=== PATIENT | male | born 1950 | race Caucasian/White ===

== ENCOUNTER 2021-03-28 11:23 | Inpatient (IN) | payer OTHER, MEDICAID, SELFPAY ==
--- NOTE | ~2021-03-28 | XR_ITS ---
EXAMINATION: XR CHEST CLINICAL INFORMATION: Cough. COMPARISON: Chest 10/28/2018 TECHNIQUE: 2 views of the chest were obtained. FINDINGS: The lungs are hyperinflated but clear of acute process. A right azygos lobe is noted. The heart size and pulmonary vascularity is normal. No gross bony abnormality seen. XR/XR chest 2V IMPRESSION: Unremarkable chest exam.
--- NOTE | ~2021-03-28 | CT_ITS ---
EXAMINATION: CT HEAD WITHOUT CONTRAST CLINICAL INFORMATION: Confusion. COMPARISON: None TECHNIQUE: Contiguous axial imaging was performed from the skull base to vertex without intravenous administration of contrast. This CT examination was performed using dose optimization techniques as appropriate, variously including the following: *Automated exposure control *Adjustment of mA and/or kV according to patient size (this includes techniques or standardized protocols for targeted exams where dose is matched to indication/reason for exam; i.e. extremities or head) *Use of iterative reconstruction technique DLP: 758 mGy-cm FINDINGS: There is no evidence of acute intracranial hemorrhage or territorial infarction. No abnormal mass effect or midline shift is seen. Alan to white matter differentiation is well preserved. No extra-axial fluid collections are identified. There is a dense right para falcine dural calcification. The lateral ventricles are symmetrical in size and configuration without and enlargement. The alan to white matter difference is maintained normal. The osseous structures and soft tissues are normal. The mastoid air cells and visualized portions of the paranasal sinuses are well aerated. CT/CT head/brain wo con IMPRESSION: No acute intracranial process seen.
[2021-03-28 12:05] VITALS: BP 182/96; PULSE 84; RESP 18; TEMP 37.5; O2SAT 97; BMI 29.5
[2021-03-28 13:00] LABS: Glucose, Whole Blood 112 mg/dL (60-115)
--- NOTE | 2021-03-28 13:28 | ECG_ITS ---
Test Reason : MED CLEAR Blood Pressure : / mmHG Vent. Rate : 042 BPM Atrial Rate : 042 BPM P-R Int : 174 ms QRS Dur : 154 ms QT Int : 602 ms P-R-T Axes : 040 020 167 degrees QTc Int : 502 ms Marked sinus bradycardia Left bundle branch block Abnormal ECG When compared with ECG of 28-OCT-2018 18:58, Premature ventricular complexes are no longer Present Vent. rate has decreased BY 33 BPM T wave inversion more evident in Anterolateral leads Referred By: Aretha Loco Electronically Signed By:DANDY MAYA MD
[2021-03-28 14:02] LABS: MANUAL DIFF FLAG NO
[2021-03-28 14:03] LABS: Basophils Percent Auto 0.4 % (0-2); Eosinophils Percent Auto 0.6 % (0-4); Hematocrit 47.8 % (42-52); Hemoglobin 15.7 g/dl (14.0-18.0); Imm Gran Abs Auto 0.02 X10*3/uL (0.00-0.03); Imm Gran Pct Auto 0.3 % (0.0-0.4); Lymphocytes Absolute Auto 1.4 X10*3/uL (1.2-4.9); Mean Corpuscular HGB Conc 32.8 g/dl (31.0-36.0); Mean Corpuscular Hemoglobin 29.4 pg (27.0-33.0); Mean Corpuscular Volume 89.5 fL (80-98); Mean Platelet Volume 9.5 fL (9.4-12.4); Monocytes Absolute Auto 0.7 X10*3/uL (0.1-1.2); Monocytes Percent Auto 9.3 % (2-11); Neutrophils Absolute Auto 5.1 X10*3/uL (2.0-8.3); Neutrophils Percent Auto 70.4 % (45-73); Platelet Count 224 X10*3/uL (160-400); Red Blood Count 5.34 X10*6/uL (4.60-5.80); Red Cell Distribution Width 13.9 % (11.0-16.0); White Blood Count 7.2 X10*3/uL (4.8-10.8)
[2021-03-28 14:09] VITALS: BP 161/84; PULSE 82; RESP 16; TEMP 36.2; O2SAT 98
[2021-03-28 14:18] LABS: COVID-19 Test Negative (Negative)
--- NOTE | 2021-03-28 14:25 | ED.PSYCH ---
HPI - Psych General Chief Complaint: Psychiatric Symptoms Stated Complaint: abd pain Time Seen by Provider: 03/28/21 13:11 Source: patient and family Mode of arrival: ambulatory History of Present Illness HPI Narrative: 70-year-old male with history of bipolar disorder, anxiety, COPD, hypertension, hyperlipidemia, diabetes, chronic abdominal pain who presents the emergency department with complaints of acute on chronic right lower abdominal pain as well as reports of confusion/abnormal thoughts and behaviors per family. Patient himself admits to right lower belly pain that has been worse over the last week denies nausea vomiting or diarrhea. Does admit to chest pain being there since the surgery many years ago but states it has been worse over the last week. Denies fevers or chills denies chest pain or shortness of breath denies pain with urination or issues urinating. Patient himself denies SI or HI but does admit that he has gotten his neighbors the double. Patient's mother is at the bedside and is very concerned as he has been off of all medications for the last 1-2 months. She states his behavior and thoughts are very disorganized he has been increasingly adventist over the last months thinking that he is God and the neighbor is the devil. He thinks that other relatives who or still live and she is concerned about his overall well-being. She does not feel he is safe to be at home alone this time. Related Data Home Medications Medication Instructions Recorded Confirmed fluticasone propionate 50 1 spray INTRANASAL DAILY 08/13/20 02/06/21 mcg/actuation nasal spray,suspension lorazepam 1 mg tablet 1 mg PO BID PRN 08/13/20 02/06/21 trazodone 100 mg tablet 100 mg PO BEDTIME PRN 08/13/20 02/06/21 albuterol sulfate 2.5 mg CONTINUOUS NEBULIZATION .3 11/06/20 02/06/21 TIMES A DAY PRN ml olanzapine 10 mg tablet 10 mg PO BEDTIME 02/06/21 02/06/21 Previous Rx's Medication Instructions Recorded acetaminophen 325 mg tablet 325 mg PO QID PRN #120 tab 08/15/20 omeprazole 20 mg capsule,delayed 20 mg PO DAILY #30 cap 10/13/20 release amlodipine 2.5 mg tablet 2.5 mg PO DAILY 90 Days #90 tab 11/09/20 losartan 50 mg tablet 50 mg PO .1/2 TABLET DAILY 60 Days 11/09/20 #30 tab tamsulosin 0.4 mg capsule 0.4 mg PO DAILY #90 cap 11/11/20 albuterol sulfate 90 mcg/actuation 2 puff INHALATION .4 TIMES A DAY 01/08/21 aerosol inhaler PRN #8.5 g atorvastatin 40 mg tablet 40 mg PO DAILY #90 tab 01/22/21 finasteride 5 mg tablet 5 mg PO DAILY 30 Days #30 tab 02/04/21 escitalopram oxalate 10 mg tablet 10 mg PO DAILY 30 Days #30 tab 02/19/21 tramadol 50 mg tablet 50 mg PO TID PRN 15 Days #45 tab 03/04/21 dicyclomine 20 mg tablet 20 mg PO TID PRN #90 tab 03/25/21 levothyroxine 200 mcg tablet 200 mcg PO QAM #30 tab 03/25/21 Allergies Allergy/AdvReac Type Severity Reaction Status Date / Time lisinopril [LISINOPRIL] Allergy Intermediate RASH Verified 02/06/21 14:59 Review of Systems Review of Systems: Constitutional : No Weight loss, No Fever, No Chills, No Night Sweats, No Fatigue, No Malaise ENT/Mouth : No Hearing loss, No Ear Pain, No Nasal Congestion, No Sinus Pain, No Hoarseness, No sore throat, No Rhinorrhea, No Swallowing Difficulty Eyes: No Eye Pain, No Swelling, No Redness, No Foreign Body, No Discharge, No Vision Changes Cardiovascular : No Chest Pain, No SOB, No Dyspnea on Exertion, No Orthopnea, No Edema, No Palpitations Respiratory : No Cough, No Sputum, No Wheezing, No Smoke Exposure, No Dyspnea Gastrointestinal : No Nausea, No Vomiting, No Diarrhea, No Constipation, + abdominal Pain, No Hematochezia, No Melena Genitourinary : no irregular bleeding, No Dysuria, No Urinary Frequency, No Hematuria, No Urinary Incontinence, No Urgency, No Flank Pain, No Urinary Flow Changes, No Hesitancy Musculoskeletal : No joint pain, No Myalgias, No Joint Swelling Skin : No Skin Lesions, No rash Neuro : No Weakness, No Numbness, No Paresthesias, No Loss of Consciousness, No Dizziness, No Headache Psych : No SI/HI Heme/Lymph: No Bruising, No Bleeding,No Lymphadenopathy Endocrine : No Polyuria, No Polydipsia, No Temperature Intolerance [facility] Past Medical History Attestation statement: The following information was validated with the patient. Source: old records reviewed and nursing notes reviewed Medical History Abdominal pain, chronic, right lower quadrant Acquired hypothyroidism Allergic rhinitis Anxiety Benign essential hypertension Bipolar disorder CAD (coronary artery disease) Constipation COPD (chronic obstructive pulmonary disease) Diabetes mellitus GERD (gastroesophageal reflux disease) Insomnia Obesity (BMI 30-39.9) Osteoarthritis Pure hypercholesterolemia Vitamin D deficiency Surgical History History of arthroscopic knee surgery History of cardiac catheterization History of colectomy History of esophagogastroduodenoscopy (EGD) History of excision of pilonidal cyst History of eye surgery History of skin graft Hx of colonoscopy Family History Family History Father Stroke CVD (cerebrovascular disease) Mother Hypertension Social History Social History Alcohol intake: unknown Patient Tobacco Use Status: Never used Tobacco Use of substances other than those prescribed or required for medical reasons: No Advance Directives: Yes Advance Directives Information Provided: Yes Advance Directives on File: No Physical Exam Vital Signs: Vital Signs: Last Vital Signs Temp 97.2 F 03/28/21 14:09 Pulse 82 03/28/21 14:09 Resp 16 03/28/21 14:09 BP 161/84 H 03/28/21 14:09 Pulse Ox 98 03/28/21 14:09 Body Mass Index 29.5 vital signs have been reviewed as normal and appeared to be correct. Blood pressure normal. Heart rate normal. Respiration rate normal. Temperature normal. Oxygen saturation normal. Appearance: Alert. Oriented X3. No acute distress. Head: Normal external exam. Normocephalic. Atraumatic. No Avalos signs noted. No raccoon eyes noted Eyes: PERRLA. EOMI. Conjunctiva and sclera normal. Eyelids normal. ENT: EAC normal. TM's Normal. Moist mucous membranes. No trismus noted. No drooling noted. No muffled voice noted. Neck: Normal inspection. Neck supple. FROM. No meningeal signs. No neck mass noted. CVS: Normal heart rate and rhythm. Heart sound normal. No murmurs noted. Pulses normal throughout. Respiratory: No respiratory distress. Painless inspiration. Breath sounds normal. No wheezes/rales/rhonchi noted. Chest nontender. No accessory muscle usage noted or decreased air movement noted. Abdomen: Soft, mild RLQ tenderness on exam, does improve with distraction. Bowel sounds normal in all 4 quadrants. No distention noted. No organomegaly noted. No visible injury noted. Back: No CVA tenderness. Full range of motion noted. Skin: Skin warm and dry. Normal skin color. Normal skin turgor. No rashes/lesions/lacerations noted. Extremities: No lower extremity edema. Extremities exhibit normal range of motion. Extremities nontender. Neuro: Oriented X 3. No motor deficit. No sensory deficit. Course Reevaluation(s) Reevaluation #1: Patient's blood work, head CT, chest x-ray without acute findings. Patient remains hemodynamically stable. At this time pending urinalysis but will medically clear for crisis evaluation. Will sign out care at change shift pending their evaluation and ultimate disposition. Patient is stable. MDM - Psych MDM Narrative Medical decision making narrative: Patient's vital signs are stable and he is afebrile patient presenting to the ED with reports of acute on chronic right lower abdominal pain and family reports is increasingly abnormal thoughts behaviors and fact that patient is off his psych medication for 2 months. Patient seems simply that he has gotten his neighbors the devil. He denies SI or HI. Mom who is present for examination is very concerned about his overall well-being is not feel that his thoughts or behaviors are safe at home where he lives alone. At this time will perform basic blood work head CT and urinalysis given patient's age to rule out potential sources infection that could cause confusion as well as worsening abdominal labs due to acute on chronic abdominal pain. Do not feel abdominal imaging is warranted at this time is patient is awake alert hemodynamically stable and easily distractible with palpation of abdomen. Once medically cleared will referred to crisis for formal assessment is patient will likely need inpatient stay to get back on his medications. Will continue to monitor and reassess pending the above. Lab Data Result diagrams: 03/28/21 13:53 06/10/21 13:52 Labs: Lab Results 03/28/21 03/28/21 03/28/21 Range/Units 12:56 13:47 13:52 WBC (4.8-10.8) X10*3/uL RBC (4.60-5.80) X10*6/uL Hgb (14.0-18.0) g/dl Hct (42-52) % MCV (80-98) fL MCH (27.0-33.0) pg MCHC (31.0-36.0) g/dl RDW (11.0-16.0) % Plt Count (160-400) X10*3/uL MPV (9.4-12.4) fL Immature Gran % (Auto) (0.0-0.4) % Neut % (Auto) (45-73) % Lymph % (Auto) (20-40) % [place] % (Auto) (2-11) % Eos % (Auto) (0-4) % Baso % (Auto) (0-2) % Lymph # (Auto) (1.2-4.9) X10*3/uL [place] # (Auto) (0.1-1.2) X10*3/uL Eos # (Auto) (0.0-0.4) X10*3/uL Baso # (Auto) (0.0-0.2) X10*3/uL Abs Immat Gran (auto) (0.00-0.03) X10*3/uL Absolute Neuts (auto) (2.0-8.3) X10*3/uL Absolute Nucleated RBC (0.0-0.012) X10*3/uL Nucleated RBC % (auto) (0.0-0.2) /100WBC Sodium 141 (135-145) mmol/L Potassium 3.7 (3.3-5.1) mmol/L Chloride 106 (96-108) mmol/L Carbon Dioxide 25 (22-29) mmol/L Anion Gap 14 (12-20) BUN 21 H (9-16) mg/dL Creatinine 1.30 (0.5-1.4) mg/dL Estim Creat Clear Calc 58.0 Estimated GFR 54 POC Glucose 112 (60-115) mg/dL Random Glucose 163 H (60-115) mg/dL Calcium 9.3 (8.4-10.2) mg/dL Total Bilirubin 0.7 (0.0-1.0) mg/dL Direct Bilirubin (0.0-0.5) mg/dL AST 30 (5-37) U/L ALT 32 (0-40) U/L Alkaline Phosphatase 86 (39-117) U/L Total Protein 7.1 (6.5-8.0) g/dL Albumin 4.0 (3.5-5.0) g/dL Lipase 51 (8-78) U/L Ethyl Alcohol mg/dL COVID-19 (DEEPA) Negative (Negative) COVID-19 Clin Com See Note 03/28/21 03/28/21 03/28/21 Range/Units 13:52 13:53 13:53 WBC 7.2 (4.8-10.8) X10*3/uL RBC 5.34 (4.60-5.80) X10*6/uL Hgb 15.7 (14.0-18.0) g/dl Hct 47.8 (42-52) % MCV 89.5 (80-98) fL MCH 29.4 (27.0-33.0) pg MCHC 32.8 (31.0-36.0) g/dl RDW 13.9 (11.0-16.0) % Plt Count 224 (160-400) X10*3/uL MPV 9.5 (9.4-12.4) fL Immature Gran % (Auto) 0.3 (0.0-0.4) % Neut % (Auto) 70.4 (45-73) % Lymph % (Auto) 19.0 L (20-40) % [place] % (Auto) 9.3 (2-11) % Eos % (Auto) 0.6 (0-4) % Baso % (Auto) 0.4 (0-2) % Lymph # (Auto) 1.4 (1.2-4.9) X10*3/uL [place] # (Auto) 0.7 (0.1-1.2) X10*3/uL Eos # (Auto) 0.0 (0.0-0.4) X10*3/uL Baso # (Auto) 0.0 (0.0-0.2) X10*3/uL Abs Immat Gran (auto) 0.02 (0.00-0.03) X10*3/uL Absolute Neuts (auto) 5.1 (2.0-8.3) X10*3/uL Absolute Nucleated RBC 0.000 (0.0-0.012) X10*3/uL Nucleated RBC % (auto) 0.0 (0.0-0.2) /100WBC Sodium (135-145) mmol/L Potassium (3.3-5.1) mmol/L Chloride (96-108) mmol/L Carbon Dioxide (22-29) mmol/L Anion Gap (12-20) BUN (9-16) mg/dL Creatinine (0.5-1.4) mg/dL Estim Creat Clear Calc Estimated GFR POC Glucose (60-115) mg/dL Random Glucose (60-115) mg/dL Calcium (8.4-10.2) mg/dL Total Bilirubin 0.7 (0.0-1.0) mg/dL Direct Bilirubin 0.3 (0.0-0.5) mg/dL AST 32 (5-37) U/L ALT 35 (0-40) U/L Alkaline Phosphatase 78 (39-117) U/L Total Protein 7.2 (6.5-8.0) g/dL Albumin 4.0 (3.5-5.0) g/dL Lipase (8-78) U/L Ethyl Alcohol < 10 mg/dL COVID-19 (DEEPA) (Negative) COVID-19 Clin Com Discharge Plan Discharge Clinical Impression: Bipolar disorder, Acute psychosis Patient Disposition: Still a Patient Prescriptions: No Action acetaminophen 325 mg tablet 325 mg PO QID PRN (Reason: pain) Qty: 120 RF: 4 omeprazole 20 mg capsule,delayed release(DR/EC) 20 mg PO DAILY Qty: 30 RF: 3 losartan 50 mg tablet 50 mg PO .1/2 TABLET DAILY 60 Days Qty: 30 RF: 3 amlodipine 2.5 mg tablet 2.5 mg PO DAILY 90 Days Qty: 90 RF: 1 tamsulosin 0.4 mg capsule 0.4 mg PO DAILY Qty: 90 RF: 0 albuterol sulfate [ProAir HFA] 90 mcg/actuation HFA aerosol inhaler 2 puff inhalation .4 TIMES A DAY PRN (Reason: bronchospasm) Qty: 8.5 RF: 0 atorvastatin 40 mg tablet 40 mg PO DAILY Qty: 90 RF: 1 finasteride 5 mg tablet 5 mg PO DAILY 30 Days Qty: 30 RF: 2 escitalopram oxalate 10 mg tablet 10 mg PO DAILY 30 Days Qty: 30 RF: 2 tramadol 50 mg tablet 50 mg PO TID PRN (Reason: pain) 15 Days Qty: 45 RF: 0 levothyroxine 200 mcg tablet 200 mcg PO QAM Qty: 30 RF: 0 dicyclomine 20 mg tablet 20 mg PO TID PRN (Reason: for pain) Qty: 90 RF: 0 trazodone 100 mg tablet 100 mg PO BEDTIME PRNRF: 0 lorazepam 1 mg tablet 1 mg PO BID PRNRF: 0 fluticasone propionate 50 mcg/actuation spray,suspension 1 spray intranasal DAILY RF: 0 albuterol sulfate 2.5 mg /3 mL (0.083 %) solution for nebulization 2.5 mg continuous nebulization .3 TIMES A DAY PRNRF: 0 olanzapine 10 mg tablet 10 mg PO BEDTIME RF: 0
[2021-03-28 14:26] LABS: Ethanol < 10 mg/dL
[2021-03-28 14:29] LABS: Alanine Aminotransferase 35 U/L (0-40); Alkaline Phosphatase 78 U/L (39-117); Aspartate Amino Transferase 32 U/L (5-37); Bilirubin Direct 0.3 mg/dL (0.0-0.5); Bilirubin Total 0.7 mg/dL (0.0-1.0); Total Protein 7.2 g/dL (6.5-8.0)
[2021-03-28 14:33] LABS: Alanine Aminotransferase 32 U/L (0-40); Alkaline Phosphatase 86 U/L (39-117); Anion Gap 14 (12-20); Aspartate Amino Transferase 30 U/L (5-37); Bilirubin Total 0.7 mg/dL (0.0-1.0); Blood Urea Nitrogen 21 mg/dL (9-16); Calcium 9.3 mg/dL (8.4-10.2); Carbon Dioxide 25 mmol/L (22-29); Chloride 106 mmol/L (96-108); Estimated Glomerular Filt Rate 54; Glucose Random 163 mg/dL (60-115); Lipase 51 U/L (8-78); Potassium 3.7 mmol/L (3.3-5.1); Sodium 141 mmol/L (135-145); Total Protein 7.1 g/dL (6.5-8.0)
--- NOTE | 2021-03-28 17:22 | PC.NURSE ---
ANNA faxed and called
[2021-03-28 21:51] LABS: Glucose Urine UA NEG (NEG); Leukocyte Esterase Urine NEG (NEG); Nitrite Urine NEG (NEG); Specific Gravity - Urine >= 1.030 (1.005-1.025); Urine Blood 2+ (NEG); Urine Ketones NEG (NEG); Urine Protein 2+ MG/DL (NEG-TRACE)
[2021-03-28 21:53] LABS: Appearance Urine CLEAR; Color Urine YELLOW
[2021-03-28 22:01] LABS: Mucus Urine 1+ /LPF; Squamous Epithelial Cell Urine TRACE /LPF; WBC Urine 0-2 /HPF (0-4)
[2021-03-28 22:27] LABS: Amphetamine Screen Urine Not Detected (Not Detect); Barbiturates, Urine Not Detected (Not Detect); Benzodiazepines Screen Urine Not Detected (Not Detect); Cannabinoid Screen Urine Not Detected (Not Detect); Cocaine Screen Urine Not Detected (Not Detect); Opiate Screen Urine Not Detected (Not Detect); Phencyclidine Screen Urine Not Detected (Not Detect)
[2021-03-28 23:11] VITALS: BP 140/69; PULSE 43; RESP 18; TEMP 36.6; O2SAT 98
[2021-03-29 00:20] VITALS: BP 141/68; PULSE 43; RESP 18; TEMP 36.6; O2SAT 98
--- NOTE | 2021-03-29 01:04 | PC.NURSE ---
Spoke with ANNA regarding admission to [facility] [place] [id number]
[2021-03-29 01:20] VITALS: BP 145/94; PULSE 52; RESP 16; TEMP 36.5; O2SAT 99
--- NOTE | 2021-03-29 02:22 | PC.ADMIT ---
PT admitted to [facility] for first time from ER, referred by Care Team. 70 year old male, diagnosed with bipolar, off meds, legal status CV, no previous hospitalizations. Nurse to nurse report obtained prior to arrival on unit. Collateral info obtained prior to acceptance. PT A+O x2, not oriented to date and month PT came in with complaints of chronic abdominal pain. PT states I am a God. PT presenting with disorganized thoughts and trouble concentrating. PT has sore inside lower bottom lip. No drug or alcohol use noted. Safety tool completed. PT medication not reconciled by this RN due to time of night. PT oriented to room and unit.
[2021-03-29 06:00] VITALS: BP 152/72; PULSE 46; RESP 18; TEMP 36.6; O2SAT 99
[2021-03-29 08:36] VITALS: BP 154/79; PULSE 50; RESP 20; TEMP 36.9; O2SAT 99
[2021-03-29 09:27] VITALS: BP 154/79; PULSE 50
[2021-03-29] MEDS: amLODIPine Besylate 2.5 MG TABLET PO (09:27)
[2021-03-29] MEDS: Milk of Magnesia 30 ML ORAL.SUSP PO (09:27)
[2021-03-29] MEDS: OLANZapine ODT 10 MG TAB.RAPDIS 5 MG TRANSLINGU (12:50)
[2021-03-29] MEDS: LORazepam 1 MG TABLET 2 MG PO ×2 (13:09→14:33)
[2021-03-29] MEDS: OLANZapine ODT 10 MG TAB.RAPDIS TRANSLINGU ×2 (13:09→21:02)
--- NOTE | 2021-03-29 13:49 | P.HPPS_ITS ---
HPI Chief Complaint: Susy and psychosis Sources of Information: patient interviewed, chart reviewed and crisis/core team assessment reviewed Additional Sources of Information: MOther HPI Subjective Notes: Conditional Voluntary Narrative: Mr. Lugo is a 70 year-old male with hx of BIpolar versus Schizoaffective Disorder who was brought to [facility] ED by his mother due to pt presenting as increasingly more agitated, religiously preoccupied stating that he is God and has killed the devil, not able to care for himself, not paying bills because he thinks he is God not taking medications for medical or psychiatric condition as he does not think he has anything to treat. In the ED, his utox is negative. On the unit, pt initially somewhat pleasant but guarded and irritable. He reports he is God, he killed the devil, he is moving to a mansion and is getting (to a GF that does not exist). He reports he does not need any medical or psychiatric treatment. He denied SI/HI. He reports eating and sleeping well but unclear if these reports are accurate. He tells this fha underwriter he is leaving today. He believes that several relatives who have long time ago have resurrected thanks to his de souza. He is telling staff about their fate. He reports hearing voices (sometimes of devil). He later demanded to leave and became combative, requiring PO medications for agitation including Ativan 2 mg and Olanzapine 5mg. He briefly calmed down, and again became agitated, demanding to leave. Telling people that he was hearing voices from Father God. He presents as very irritable, threatening to hurt st aff if not discharged. He did agree to take Depakote 500mg po, fluphenazine 5mg po and ativan 2mg po. Past Psychiatric History: Inpatient: total of 2 admissions. This is his 3rd one. OP: [facility] Mt with Dr. Marvin Suicide attempts: none Past trials: olanzapine, citalopram Medical Evaluation Reviewed: Yes PERTINENT LABS: CBC with dif wnl; CMP- increase BUN, Cr 1.30; GFR 54, E Creatine Clearance 58; liver panel wnl; [facility] Medical History Abdominal pain, chronic, right lower quadrant Acquired hypothyroidism Allergic rhinitis Anxiety Benign essential hypertension Bipolar disorder CAD (coronary artery disease) Constipation COPD (chronic obstructive pulmonary disease) Diabetes mellitus GERD (gastroesophageal reflux disease) Insomnia Obesity (BMI 30-39.9) Osteoarthritis Pure hypercholesterolemia Vitamin D deficiency Surgical History History of arthroscopic knee surgery History of cardiac catheterization History of colectomy History of esophagogastroduodenoscopy (EGD) History of excision of pilonidal cyst History of eye surgery History of skin graft Hx of colonoscopy Family History: sister- depression Social History: twice. 3 adult children with whom he has limited contact. 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 lives alone. mother still alive and main support. Substance History: none Trauma History: none Diagnostics Vital Signs (24Hr): Vital Signs - 24 hr 03/28/21 14:09 03/28/21 23:11 03/29/21 00:20 Temperature 97.2 F 97.9 F 97.8 F Pulse Rate 82 43 L 43 L Respiratory Rate 16 18 18 Blood Pressure 161/84 H 140/69 H 141/68 H Pulse Oximetry 98 98 98 03/29/21 01:20 03/29/21 06:00 03/29/21 08:36 Temperature 97.7 F 97.8 F 98.4 F Pulse Rate 52 46 L 50 Respiratory Rate 16 18 20 Blood Pressure 145/94 H 152/72 H 154/79 H Pulse Oximetry 99 99 99 03/29/21 09:27 Temperature Pulse Rate 50 Respiratory Rate Blood Pressure 154/79 H Pulse Oximetry Body Mass Index 29.5 Labs Results: 03/28/21 13:53 03/28/21 13:52 Labs: Laboratory Results - last 48 hr 03/28/21 03/28/21 03/28/21 12:56 13:47 13:52 WBC RBC Hgb Hct MCV MCH MCHC RDW Plt Count MPV Immature Gran % (Auto) Neut % (Auto) Lymph % (Auto) [place] % (Auto) Eos % (Auto) Baso % (Auto) Lymph # (Auto) [place] # (Auto) Eos # (Auto) Baso # (Auto) Abs Immat Gran (auto) Absolute Neuts (auto) Absolute Nucleated RBC Nucleated RBC % (auto) Sodium 141 Potassium 3.7 Chloride 106 Carbon Dioxide 25 Anion Gap 14 BUN 21 H Creatinine 1.30 Estim Creat Clear Calc 58.0 Estimated GFR 54 POC Glucose 112 Random Glucose 163 H Calcium 9.3 Total Bilirubin 0.7 Direct Bilirubin AST 30 ALT 32 Alkaline Phosphatase 86 Total Protein 7.1 Albumin 4.0 Lipase 51 Urine Color Urine Appearance Urine pH Ur Specific [place] Urine Protein Urine Glucose (UA) Urine Ketones Urine Blood Urine Nitrite Ur Leukocyte Esterase Urine RBC Urine WBC Ur Squamous Epith Cells Urine Bacteria Urine Mucus Urine Opiates Screen Ur Barbiturates Screen Ur Phencyclidine Scrn Ur Amphetamines Screen U Benzodiazepines Scrn Urine Cocaine Screen U Marijuana (THC) Screen Ethyl Alcohol COVID-19 (DEEPA) Negative COVID-19 Clin Com See Note 03/28/21 03/28/21 03/28/21 13:52 13:53 13:53 WBC 7.2 RBC 5.34 Hgb 15.7 Hct 47.8 MCV 89.5 MCH 29.4 MCHC 32.8 RDW 13.9 Plt Count 224 MPV 9.5 Immature Gran % (Auto) 0.3 Neut % (Auto) 70.4 Lymph % (Auto) 19.0 L [place] % (Auto) 9.3 Eos % (Auto) 0.6 Baso % (Auto) 0.4 Lymph # (Auto) 1.4 [place] # (Auto) 0.7 Eos # (Auto) 0.0 Baso # (Auto) 0.0 Abs Immat Gran (auto) 0.02 Absolute Neuts (auto) 5.1 Absolute Nucleated RBC 0.000 Nucleated RBC % (auto) 0.0 Sodium Potassium Chloride Carbon Dioxide Anion Gap BUN Creatinine Estim Creat Clear Calc Estimated GFR POC Glucose Random Glucose Calcium Total Bilirubin 0.7 Direct Bilirubin 0.3 AST 32 ALT 35 Alkaline Phosphatase 78 Total Protein 7.2 Albumin 4.0 Lipase Urine Color Urine Appearance Urine pH Ur Specific [place] Urine Protein Urine Glucose (UA) Urine Ketones Urine Blood Urine Nitrite Ur Leukocyte Esterase Urine RBC Urine WBC Ur Squamous Epith Cells Urine Bacteria Urine Mucus Urine Opiates Screen Ur Barbiturates Screen Ur Phencyclidine Scrn Ur Amphetamines Screen U Benzodiazepines Scrn Urine Cocaine Screen U Marijuana (THC) Screen Ethyl Alcohol < 10 COVID-19 (DEEPA) COVID-19 Clin Com 03/28/21 03/28/21 21:40 21:40 WBC RBC Hgb Hct MCV MCH MCHC RDW Plt Count MPV Immature Gran % (Auto) Neut % (Auto) Lymph % (Auto) [place] % (Auto) Eos % (Auto) Baso % (Auto) Lymph # (Auto) [place] # (Auto) Eos # (Auto) Baso # (Auto) Abs Immat Gran (auto) Absolute Neuts (auto) Absolute Nucleated RBC Nucleated RBC % (auto) Sodium Potassium Chloride Carbon Dioxide Anion Gap BUN Creatinine Estim Creat Clear Calc Estimated GFR POC Glucose Random Glucose Calcium Total Bilirubin Direct Bilirubin AST ALT Alkaline Phosphatase Total Protein Albumin Lipase Urine Color YELLOW Urine Appearance CLEAR Urine pH 6.0 Ur Specific [place] >= 1.030 H Urine Protein 2+ H Urine Glucose (UA) NEG Urine Ketones NEG Urine Blood 2+ H Urine Nitrite NEG Ur Leukocyte Esterase NEG Urine RBC 10-14 H Urine WBC 0-2 Ur Squamous Epith Cells TRACE Urine Bacteria NONE Urine Mucus 1+ Urine Opiates Screen Not Detected Ur Barbiturates Screen Not Detected Ur Phencyclidine Scrn Not Detected Ur Amphetamines Screen Not Detected U Benzodiazepines Scrn Not Detected Urine Cocaine Screen Not Detected U Marijuana (THC) Screen Not Detected Ethyl Alcohol COVID-19 (DEEPA) COVID-19 Clin Com Imaging Radiology Impressions: ITS Impressions Chest X-Ray 03/28/21 13:28 IMPRESSION: Unremarkable chest exam. Head CT 03/28/21 13:33 IMPRESSION: No acute intracranial process seen. Meds/Allergies Meds Home Medications Acetaminophen (Acetaminophen 325 Mg Tablet) 650 mg PO Q6H PRN PRN Reason: Headache/Pain Mild Scale (1-3) Last Admin: 03/30/21 20:43 Dose: 650 mg Documented by: Al Hydroxide/Mg Hydroxide (Magnesium Hydrox/Alum Hydrox 30 Ml Oral.Susp) 30 ml PO Q6H PRN PRN Reason: Heartburn/Nausea Albuterol Sulfate (Albuterol Sulfate 90 Mcg 8 Gm Inhaler) 4 puff INHALE RQ4H PRN PRN Reason: short of breath, wheezing Amlodipine Besylate (Amlodipine Besylate 2.5 Mg Tablet) 2.5 mg PO DAILY YAYA; Protocol Last Admin: 03/31/21 08:35 Dose: 2.5 mg Documented by: Clonazepam (Clonazepam 1 Mg Tablet) 1 mg PO BID YAYA Last Admin: 03/31/21 19:46 Dose: 1 mg Documented by: Dicyclomine HCl (Dicyclomine Hcl 10 Mg Capsule) 10 mg PO TID PRN PRN Reason: GI pain Last Admin: 03/31/21 08:35 Dose: 10 mg Documented by: Divalproex Sodium (Divalproex Sodium 500 Mg Tablet.) 500 mg PO BID [facility] Last Admin: 03/31/21 19:46 Dose: 500 mg Documented by: Fluphenazine HCl (Fluphenazine Hcl 2.5 Mg Tablet) 2.5 mg PO Q6H PRN PRN Reason: agitation Last Admin: 03/31/21 08:35 Dose: 2.5 mg Documented by: Levothyroxine Sodium (Levothyroxine Sodium 25 Mcg Tablet) 25 mcg PO DAILY@0600 [facility] Last Admin: 04/01/21 05:01 Dose: 25 mcg Documented by: Lorazepam (Lorazepam 1 Mg Tablet) 1 mg PO Q4H PRN PRN Reason: agitation anxiety Last Admin: 03/31/21 19:46 Dose: 1 mg Documented by: Magnesium Hydroxide (Milk Of Magnesia 30 Ml Oral.Susp) 30 ml PO DAILY PRN PRN Reason: Constipation Last Admin: 03/29/21 09:27 Dose: 30 ml Documented by: Olanzapine (Olanzapine Odt 10 Mg Tab.Rapdis) 10 mg TRANSLINGU BID [facility] Last Admin: 03/31/21 19:46 Dose: 10 mg Documented by: Trazodone HCl (Trazodone Hcl 100 Mg Tablet) 100 mg PO BEDTIME [facility] Last Admin: 03/31/21 19:47 Dose: 100 mg Documented by: Allergies Allergies Allergy/AdvReac Type Severity Reaction Status Date / Time lisinopril [LISINOPRIL] Allergy Intermediate RASH Verified 02/06/21 14:59 Mental Status Exam Mental Status Exam Narrative: Appearance: casually groomed, fair hygiene, in NAD Behavior: irritable, agitated Psychomotor: significant agitation Speech: clear, pressured rate/rhythm/load volume, spontaneous, hyperverbal TP: tangential, derailment at times TC: roman catholic and grandiose delusions Mood: fine Affect:labile SI:denies HI:denies AH/VH:AH of God Delusions:roman catholic and grandiose delusions, thinks he is God, millionaire Insight/judgment:impaired x 2 Memory/cog: alert, impaired secondary to psychiatric symptoms. Assessment & Plan Assessment & Plan (1) Bipolar affective, manic, severe w/ psych: Status: Acute Code(s): F31.2 - Bipolar disorder, current episode manic severe with psychotic features Assessment and Plan: 1. Re start Olanzapine 10mg po BID 2. Start Depakote 500mg po BID 3. Start Clonazepam 1mg po BID. 4. Start Trazodone 100mg po qhs. Reason for continued inpatient stay Substantial Risk for: harm to self, harm to others and inability to function
[2021-03-29] MEDS: Divalproex Sodium 500 MG TABLET.DR PO ×2 (14:25→21:03)
[2021-03-29] MEDS: OLANZapine 10 MG VIAL IM (18:18)
[2021-03-29] MEDS: LORazepam 2 MG/ML VIAL IM (18:33)
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
[2021-03-29] MEDS: Divalproex Sodium 500 MG TABLET.DR 1000 MG PO (20:23)
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
[2021-03-29] MEDS: clonazePAM 1 MG TABLET PO (21:01)
[2021-03-29] MEDS: traZODone HCL 100 MG TABLET PO (21:01)
--- NOTE | 2021-03-29 22:46 | PM.EVENT ---
Event Note Date of Service: 03/29/21 Event Note: Agitation: Patient had an episode of agitation again at 8:50p.m.; patient was placed on physical restraints by the staff for safety. I went in and evaluated the patient; signed the restraint form. Frequent reorientation.
--- NOTE | 2021-03-30 07:35 | PC.NURSE ---
Pt's mother notified of episodes this evening and patient's behaviors. She is also requesting that pt be seen by an actual doctor, a psychiatrist, not a UI UX DEVELOPER . Mother stated, I insist that it be put in writing that I want that .
[2021-03-30 09:21] LABS: Estimated Average Glucose 105 mg/dL; Hemoglobin A1c % 5.3 %
[2021-03-30] MEDS: clonazePAM 1 MG TABLET PO ×2 (09:28→20:44)
[2021-03-30] MEDS: amLODIPine Besylate 2.5 MG TABLET PO (09:28)
[2021-03-30] MEDS: Divalproex Sodium 500 MG TABLET.DR PO ×2 (09:29→20:43)
[2021-03-30] MEDS: OLANZapine ODT 10 MG TAB.RAPDIS TRANSLINGU ×2 (09:29→20:44)
[2021-03-30 09:30] VITALS: BP 158/80; PULSE 80; RESP 16; TEMP 36.8; O2SAT 9
[2021-03-30 09:36] LABS: Cholesterol 189 mg/dL; HDL Cholesterol 50 mg/dL; LDL Cholesterol Calculated 118 mg/dl; Triglycerides 106 mg/dL
[2021-03-30 09:57] LABS: Thyroid Stimulating Hormone 12.87 uIU/mL (0.32-4.0)
--- NOTE | 2021-03-30 15:40 | P.PNPSI_ITS ---
Subjective Subjective Date of Service: 03/30/21 Reason For Visit: Susy and psychosis Interim History: Noted yesterday aggressive, agitated, attempting to elope, intrusive and impulsive with peers in space. On one-to-one observation in context of same. Did receive IM medications with Some benefit and did appear to sleep well last night. Today he told keno writer that he hears God and the devil talking to him. Was asking keno writer if keno writer's was called Maeve. Also stated this was [facility]. Reported he wanted to be discharged. Discussed medications just being restarted and therefore time to observe same and that he would be here definitely through the weekend. Appear to show some understanding of this, without agitation. Medication Compliance: Yes Side effects from medications: No Review of Systems Constitutional: Reports as per HPI Eyes: Reports as per HPI Reports as per HPI Cardiovascular: Reports as per HPI Respiratory: Reports as per HPI Gastrointestinal: Reports as per HPI Genitourinary: Reports as per HPI Musculoskeletal: Reports as per HPI Skin/Breast: Reports as per HPI Reports as per HPI and Reports tremor(s) Comments: Resting right hand tremor Psychiatric: Reports abnormal sleep pattern, Reports anxiety, Reports irritability and Reports paranoia Mental Status Exam Mental Status Exam Narrative: seen in room. Was also seen walking in the hallways. Did not appear aggressive or agitated. Self-care was poor. Was internally preoccupied. Reported he had killed the devil and he had also brought family member back to life. Reports hearing the God and the devil's voice. Denies feeling depressed. Aware he was in the hospital and stated it was April rather than March. No evidence of SI or HI. Insight and judgment is limited. Diagnostics Vital Signs (24Hr): Vital Signs - 24 hr 03/30/21 09:30 Temperature 98.3 F Pulse Rate 80 Respiratory Rate 16 Blood Pressure 158/80 H Pulse Oximetry 9 L Body Mass Index 29.5 Labs Results: 03/28/21 13:53 03/28/21 13:52 Labs: Laboratory Results - last 48 hr 03/28/21 03/28/21 03/30/21 21:40 21:40 09:00 Estimat Average Glucose 105 Hemoglobin A1c % 5.3 Triglycerides Cholesterol LDL Cholesterol, Calc HDL Cholesterol TSH Urine Color YELLOW Urine Appearance CLEAR Urine pH 6.0 Ur Specific [place] >= 1.030 H Urine Protein 2+ H Urine Glucose (UA) NEG Urine Ketones NEG Urine Blood 2+ H Urine Nitrite NEG Ur Leukocyte Esterase NEG Urine RBC 10-14 H Urine WBC 0-2 Ur Squamous Epith Cells TRACE Urine Bacteria NONE Urine Mucus 1+ Urine Opiates Screen Not Detected Ur Barbiturates Screen Not Detected Ur Phencyclidine Scrn Not Detected Ur Amphetamines Screen Not Detected U Benzodiazepines Scrn Not Detected Urine Cocaine Screen Not Detected U Marijuana (THC) Screen Not Detected 03/30/21 09:00 Estimat Average Glucose Hemoglobin A1c % Triglycerides 106 Cholesterol 189 LDL Cholesterol, Calc 118 HDL Cholesterol 50 TSH 12.87 H Urine Color Urine Appearance Urine pH Ur Specific [place] Urine Protein Urine Glucose (UA) Urine Ketones Urine Blood Urine Nitrite Ur Leukocyte Esterase Urine RBC Urine WBC Ur Squamous Epith Cells Urine Bacteria Urine Mucus Urine Opiates Screen Ur Barbiturates Screen Ur Phencyclidine Scrn Ur Amphetamines Screen U Benzodiazepines Scrn Urine Cocaine Screen U Marijuana (THC) Screen Imaging Radiology Impressions: ITS Impressions Chest X-Ray 03/28/21 13:28 IMPRESSION: Unremarkable chest exam. Head CT 03/28/21 13:33 IMPRESSION: No acute intracranial process seen. Medications Medications Current Medications Generic Name Dose Route Start Last Admin Trade Name Freq PRN Reason Stop Dose Admin Acetaminophen 650 mg 03/29/21 01:50 Acetaminophen 325 Mg Tablet PO Q6H PRN Headache/Pain Mild Scale (1-3) Al Hydroxide/Mg Hydroxide 30 ml 03/29/21 01:50 Magnesium Hydrox/Alum Hydrox 30 Ml Oral.Susp PO Q6H PRN Heartburn/Nausea Albuterol Sulfate 4 puff 03/29/21 01:50 Albuterol Sulfate 90 Mcg 8 Gm Inhaler INHALE RQ4H PRN short of breath, wheezing Amlodipine Besylate 2.5 mg 03/29/21 09:00 03/30/21 09:28 Amlodipine Besylate 2.5 Mg Tablet PO 2.5 mg DAILY YAYA Administration Protocol Clonazepam 1 mg 03/29/21 21:00 03/30/21 09:28 Clonazepam 1 Mg Tablet PO 1 mg BID YAYA Administration Dicyclomine HCl 10 mg 03/29/21 01:50 Dicyclomine Hcl 10 Mg Capsule PO TID PRN GI pain Divalproex Sodium 500 mg 03/29/21 15:00 03/30/21 09:29 Divalproex Sodium 500 Mg Tablet. PO 500 mg BID YAYA Administration Fluphenazine HCl 2.5 mg 03/29/21 15:55 Fluphenazine Hcl 2.5 Mg Tablet PO Q6H PRN agitation Lorazepam 1 mg 03/29/21 14:30 Lorazepam 1 Mg Tablet PO Q4H PRN agitation anxiety Magnesium Hydroxide 30 ml 03/29/21 01:50 03/29/21 09:27 Milk Of Magnesia 30 Ml Oral.Susp PO 30 ml DAILY PRN Administration Constipation Olanzapine 10 mg 03/29/21 21:00 03/30/21 09:29 Olanzapine Odt 10 Mg Tab.Rapdis TRANSLINGU 10 mg BID YAYA Administration Trazodone HCl 100 mg 03/29/21 21:00 03/29/21 21:01 Trazodone Hcl 100 Mg Tablet PO 100 mg BEDTIME YAYA Administration Allergies Allergies Allergy/AdvReac Type Severity Reaction Status Date / Time lisinopril [LISINOPRIL] Allergy Intermediate RASH Verified 02/06/21 14:59 Assessment & Plan Assessment & Plan (1) Bipolar affective, manic, severe w/ psych: Status: Acute Code(s): F31.2 - Bipolar disorder, current episode manic severe with psychotic features Assessment and Plan: No changes- just restarted zyprexa and depakote and klonopin. Give time for effect. Appears less agitated and impulsive today Maintain 1:1 given recent elopement attempts, aggression and intrusiveness/wandering into others rooms. Greater than 50% of the session was spent on counseling and/or coordination of care Reason for contiued inpatient stay Substantial Risk for: harm to others, inability to function and med/psych decompensation
[2021-03-30 17:39] VITALS: BP 154/84; PULSE 53; RESP 12; TEMP 36.9; O2SAT 98
[2021-03-30 20:41] VITALS: BP 146/67; PULSE 45; RESP 16; TEMP 36.3; O2SAT 99
[2021-03-30] MEDS: Acetaminophen 325 MG TABLET 650 MG PO (20:43)
[2021-03-30] MEDS: traZODone HCL 100 MG TABLET PO (20:43)
[2021-03-30] MEDS: Dicyclomine HCl 10 MG CAPSULE PO (20:44)
--- NOTE | 2021-03-30 22:13 | PC.NURSE ---
Addendum entered by Irena Chatterjee RN 03/30/21 22:54: Lawanda Stanislav Park was notified via [facility] of Gabriela's call and concerns. PriyankUyenKia Park reported he would contact her by phone on 03/31/21. Her phone number was provided. Original Note: Patient is seen resting in hospital bed. He is sleeping. He is awoken for assessment and medications. He is alert to location the hospital when asked which hospital, he replies [facility]. Patient states Those things I said, I'm bi-polar. When presented with medications, he replies Get away from me, you're a Spic! You're a pushy Spic. You're harassing me. Get away from me. I'll take them after you're gone. Patient is redirected to take medications at this time as they cannot be left with him. Patient takes the medication cup and brings it to his lips then throws all medications across the room. Patient states, I am a god. Medications are re-prepared and presented to him. He takes the medications after being told Tylenol was added for pain as he was grimacing with position changes in bed. He takes the medications and chews them up. When offered a cup of water he hits this writers hand tossing the water down this leader writer's front of body. He states You're a dirty spic! You will be fired! The patient later requests applesauce, he is provided with applesauce and consumes it. He is later overheard telling the 1:1 observer I'm sorry I threw something. My maker said no more incidents from me. I promise. About 30 min. after taking medications, Patient was observed in the hallway trying to open a door off the unit. He states Open the door I want to go outside. He was told this was not an option at this time. He was re-oriented to location and reason for hospitalization. Patient was observed to be weak on feet and encouraged to go back to room to rest. Patient states, You're a bossy bitch. Apologize for bossing me now! He steps closer to this leader writer with arm and finger outstretched pointing in this leader writer's face yelling. Patient was redirected for aggressive behavior and asked to return to room, which he did. Patient's mother, Gabriela called unit several times throughout the evening hours during medication pass. This leader writer spoke with Gabriela at 10:06pm to provide update. Gabriela states, I am a 89 year old woman and I am very tired and would like to go to bed so tell me what is happening. Gabriela was provided an update about the patient; he is currently sleeping, what he at this evening, the times he was awake this evening, medications he took, behaviors exhibited during medication pass. Gabriela stated she was upset he had been sleeping all day, feels the medications we are giving him are not working, is upset he has not been seen by a real M.D. She states, This is ridiculous he comes in on a and has to wait till Thursday to be seen by a real M.D.?? So what is the plan for tomorrow, when will I see him? It was reiterated the patient should not have visitors this weekend. Gabriela was upset about this. She was reminded this was a recommendation of Nurse Groover Operator, Roxanne Kendrick due to behaviors exhibited by patient during her visit on 03/29/21. Gabriela became escalated yelling at this leader writer, stating You're making up stuff. Don't you go putting down stuff that's not true. I will call my speech instructor and graciela you. This leader writer let Gabriela know she would be ending the call due to her yelling.
[2021-03-31] MEDS: amLODIPine Besylate 2.5 MG TABLET PO (08:35)
[2021-03-31] MEDS: Divalproex Sodium 500 MG TABLET.DR PO ×2 (08:35→19:46)
[2021-03-31] MEDS: OLANZapine ODT 10 MG TAB.RAPDIS TRANSLINGU ×2 (08:35→19:46)
[2021-03-31] MEDS: fluPHENAZine HCl 2.5 MG TABLET PO (08:35)
[2021-03-31] MEDS: Dicyclomine HCl 10 MG CAPSULE PO (08:35)
[2021-03-31] MEDS: clonazePAM 1 MG TABLET PO ×2 (08:35→19:46)
[2021-03-31] MEDS: LORazepam 1 MG TABLET PO ×2 (09:57→19:46)
--- NOTE | 2021-03-31 14:00 | P.PNPSI_ITS ---
Subjective Subjective Date of Service: 03/31/21 Reason For Visit: Susy and psychosis Interim History: Some irritability and agitation last night. No physical aggression. Primarily around wanting to go home. Does well with staff support. Excepting medications. He reports feeling okay and wants to go home today. He was asking credit underwriter if credit underwriter some was called Rj. Wire Stitcher informed the Tanner he did not have a son. Tanner then stated that he had lots of money and have a big house. Asked about God and he does not make any obvious delusional catholic statements. Adamantly denied hearing voices stated the last time that happened was yesterday. Wanted credit underwriter to speak with Mom and give credit underwriter mom's contact number, which was consistent with number and record. He was eager for d ischarge. Is aware that he needs to meet with his primary team, discussed treatment planning, progress and also disposition planning. Was clear with Tanner that meeting with his team tomorrow did not mean he will be discharged tomorrow. Spoke with Tanner's mother, who is 93 years old and has regular contact with him. She reports that he has been off his medications at a cycle he is back on them. She thinks that he may need some assistance at home and reports that his short- term memory has gotten worse in recent times and is therefore difficulty around medications etc.. She usually accompanies him to doctor's appointments. She is looking forward to speaking with his primary team around progress and treatment planning. Medication Compliance: Yes Side effects from medications: No Review of Systems Review of Systems Unremarkable Mental Status Exam Mental Status Exam Narrative: Seen in room. Pleasant and cooperative. Is alert and oriented. There was some short-term memory difficulty evident during interview. Affect was largely restricted today. No evidence of SI or HI. Does have delusional beliefs usual thinking for example asking credit underwriter if his son was called Rj, talking about having lots of money and big houses, which is not the case as per Mom. Insight and judgment limited, but is accepting treatment but also very eager for discharge. Diagnostics Vital Signs (24Hr): Vital Signs - 24 hr 03/30/21 17:39 03/30/21 20:41 Temperature 98.4 F 97.4 F Pulse Rate 53 45 L Respiratory Rate 12 16 Blood Pressure 154/84 H 146/67 H Pulse Oximetry 98 99 Body Mass Index 29.5 Labs Results: 03/28/21 13:53 03/28/21 13:52 Labs: Laboratory Results - last 48 hr 03/30/21 03/30/21 09:00 09:00 Estimat Average Glucose 105 Hemoglobin A1c % 5.3 Triglycerides 106 Cholesterol 189 LDL Cholesterol, Calc 118 HDL Cholesterol 50 TSH 12.87 H Imaging Radiology Impressions: ITS Impressions Chest X-Ray 03/28/21 13:28 IMPRESSION: Unremarkable chest exam. Head CT 03/28/21 13:33 IMPRESSION: No acute intracranial process seen. Medications Medications Current Medications Generic Name Dose Route Start Last Admin Trade Name Freq PRN Reason Stop Dose Admin Acetaminophen 650 mg 03/29/21 01:50 03/30/21 20:43 Acetaminophen 325 Mg Tablet PO 650 mg Q6H PRN Administration Headache/Pain Mild Scale (1-3) Al Hydroxide/Mg Hydroxide 30 ml 03/29/21 01:50 Magnesium Hydrox/Alum Hydrox 30 Ml Oral.Susp PO Q6H PRN Heartburn/Nausea Albuterol Sulfate 4 puff 03/29/21 01:50 Albuterol Sulfate 90 Mcg 8 Gm Inhaler INHALE RQ4H PRN short of breath, wheezing Amlodipine Besylate 2.5 mg 03/29/21 09:00 03/31/21 08:35 Amlodipine Besylate 2.5 Mg Tablet PO 2.5 mg DAILY AYYA Administration Protocol Clonazepam 1 mg 03/29/21 21:00 03/31/21 08:35 Clonazepam 1 Mg Tablet PO 1 mg BID YAYA Administration Dicyclomine HCl 10 mg 03/29/21 01:50 03/31/21 08:35 Dicyclomine Hcl 10 Mg Capsule PO 10 mg TID PRN Administration GI pain Divalproex Sodium 500 mg 03/29/21 15:00 03/31/21 08:35 Divalproex Sodium 500 Mg Tablet.Dr PO 500 mg BID YAYA Administration Fluphenazine HCl 2.5 mg 03/29/21 15:55 03/31/21 08:35 Fluphenazine Hcl 2.5 Mg Tablet PO 2.5 mg Q6H PRN Administration agitation Levothyroxine Sodium 25 mcg 03/31/21 11:40 03/31/21 12:21 Levothyroxine Sodium 25 Mcg Tablet PO Not Given DAILY@0600 YAYA Lorazepam 1 mg 03/29/21 14:30 03/31/21 09:57 Lorazepam 1 Mg Tablet PO 1 mg Q4H PRN Administration agitation anxiety Magnesium Hydroxide 30 ml 03/29/21 01:50 03/29/21 09:27 Milk Of Magnesia 30 Ml Oral.Susp PO 30 ml DAILY PRN Administration Constipation Olanzapine 10 mg 03/29/21 21:00 03/31/21 08:35 Olanzapine Odt 10 Mg Tab.Rapdis TRANSLINGU 10 mg BID YAYA Administration Trazodone HCl 100 mg 03/29/21 21:00 03/30/21 20:43 Trazodone Hcl 100 Mg Tablet PO 100 mg BEDTIME YAYA Administration Allergies Allergies Allergy/AdvReac Type Severity Reaction Status Date / Time lisinopril [LISINOPRIL] Allergy Intermediate RASH Verified 02/06/21 14:59 Assessment & Plan Assessment & Plan (1) Bipolar affective, manic, severe w/ psych: Status: Acute Code(s): F31.2 - Bipolar disorder, current episode manic severe with psychotic features Assessment and Plan: 03/31/21: No changes- just restarted zyprexa and depakote and klonopin. Give time for effect. Continues to show improvement regarding impulsivity and agitation. Psychosis does appear slightly less intense compared to yesterday.Maintain 1:1 given recent elopement attempts, aggression and intrusiveness/wandering into others rooms. This can be reviewed on a daily basis.. Greater than 50% of the session was spent on counseling and/or coordination of care Reason for contiued inpatient stay Substantial Risk for: inability to function and rapid decompensation
[2021-03-31] MEDS: traZODone HCL 100 MG TABLET PO (19:47)
[2021-04-01] MEDS: Levothyroxine Sodium 25 MCG TABLET PO (05:01)
[2021-04-01 08:23] VITALS: BP 162/69; PULSE 60; RESP 18; TEMP 36.4; O2SAT 98
[2021-04-01 08:33] VITALS: BP 162/69; PULSE 59
[2021-04-01] MEDS: amLODIPine Besylate 2.5 MG TABLET PO (08:33)
[2021-04-01] MEDS: clonazePAM 1 MG TABLET PO ×2 (08:33→21:00)
[2021-04-01] MEDS: Divalproex Sodium 500 MG TABLET.DR PO ×2 (08:33→21:00)
[2021-04-01] MEDS: OLANZapine ODT 10 MG TAB.RAPDIS TRANSLINGU (08:34)
[2021-04-01] MEDS: Dicyclomine HCl 10 MG CAPSULE PO (08:34)
[2021-04-01] MEDS: Milk of Magnesia 30 ML ORAL.SUSP PO (08:34)
--- NOTE | 2021-04-01 10:29 | HO.PSYCHPN ---
Subjective Subjective Date of Service: 04/01/21 Reason For Visit: Susy and psychosis Interim History: Per nursing, pt last night was quiter than previous nights. He does ask to be discharged but is much less agitated. He is taking medications as prescribed. Pt lying in bed. He reports he hears voices of God and Devil. He continues to report that he is a God. He states God told him he will be discharged today. He reports he is eating and sleeping well. He reports he likes the food here. He asks if staff member who he had reported God told him are going to , in fact . Pt told they did not . He states good, I don't believe in murder. He asks this engineering technical writer how long he has been here in unit. Informed he has been here for about 4 days. He is oriented to year, place, month, not date, confused about why he is here. He denies SI/HI. He presents as less agitated. Review of Systems Review of Systems Unremarkable Constitutional: Reports as per HPI Eyes: Reports as per HPI Reports as per HPI Cardiovascular: Reports as per HPI, Denies chest pain, Denies lightheadedness and Denies dyspnea Respiratory: Reports as per HPI and Denies dyspnea Gastrointestinal: Reports as per HPI, Denies constipation and Denies diarrhea Genitourinary: Reports as per HPI Musculoskeletal: Reports as per HPI Skin/Breast: Reports as per HPI Reports as per HPI and Reports tremor(s) Psychiatric: Reports abnormal sleep pattern, Reports anxiety, Reports irritability and Reports paranoia Mental Status Exam Mental Status Exam Narrative: Appearance: casually groomed, fair hygiene, in NAD Behavior: irritable, agitated Psychomotor: significant agitation Speech: clear, pressured rate/rhythm/load volume, spontaneous, hyperverbal TP: tangential, derailment at times TC: advent and grandiose delusions Mood: fine Affect:labile SI:denies HI:denies AH/VH:AH of God Delusions:advent and grandiose delusions, thinks he is God, millionaire Insight/judgment:impaired x 2 Memory/cog: alert, impaired secondary to psychiatric symptoms. Diagnostics Vital Signs (24Hr): Vital Signs - 24 hr 04/01/21 08:23 04/01/21 08:33 Temperature 97.6 F Pulse Rate 60 59 Respiratory Rate 18 Blood Pressure 162/69 H 162/69 H Pulse Oximetry 98 Body Mass Index 29.5 Labs Results: 03/28/21 13:53 03/28/21 13:52 Imaging Radiology Impressions: ITS Impressions Chest X-Ray 03/28/21 13:28 IMPRESSION: Unremarkable chest exam. Head CT 03/28/21 13:33 IMPRESSION: No acute intracranial process seen. Medications Medications Current Medications Generic Name Dose Route Start Last Admin Trade Name Freq PRN Reason Stop Dose Admin Acetaminophen 650 mg 03/29/21 01:50 03/30/21 20:43 Acetaminophen 325 Mg Tablet PO 650 mg Q6H PRN Administration Headache/Pain Mild Scale (1-3) Al Hydroxide/Mg Hydroxide 30 ml 03/29/21 01:50 Magnesium Hydrox/Alum Hydrox 30 Ml Oral.Susp PO Q6H PRN Heartburn/Nausea Albuterol Sulfate 4 puff 03/29/21 01:50 Albuterol Sulfate 90 Mcg 8 Gm Inhaler INHALE RQ4H PRN short of breath, wheezing Amlodipine Besylate 5 mg 04/02/21 09:00 Amlodipine Besylate 5 Mg Tablet PO DAILY [facility] Protocol Clonazepam 1 mg 03/29/21 21:00 04/01/21 08:33 Clonazepam 1 Mg Tablet PO 1 mg BID YAYA Administration Dicyclomine HCl 10 mg 03/29/21 01:50 04/01/21 08:34 Dicyclomine Hcl 10 Mg Capsule PO 10 mg TID PRN Administration GI pain Divalproex Sodium 500 mg 03/29/21 15:00 04/01/21 08:33 Divalproex Sodium 500 Mg Tablet.Dr PO 500 mg BID YAYA Administration Fluphenazine HCl 2.5 mg 03/29/21 15:55 03/31/21 08:35 Fluphenazine Hcl 2.5 Mg Tablet PO 2.5 mg Q6H PRN Administration agitation Levothyroxine Sodium 25 mcg 03/31/21 11:40 04/01/21 05:01 Levothyroxine Sodium 25 Mcg Tablet PO 25 mcg DAILY@0600 YAYA Administration Lorazepam 1 mg 03/29/21 14:30 03/31/21 19:46 Lorazepam 1 Mg Tablet PO 1 mg Q4H PRN Administration agitation anxiety Magnesium Hydroxide 30 ml 03/29/21 01:50 04/01/21 08:34 Milk Of Magnesia 30 Ml Oral.Susp PO 30 ml DAILY PRN Administration Constipation Olanzapine 10 mg 03/29/21 21:00 04/01/21 08:34 Olanzapine Odt 10 Mg Tab.Rapdis TRANSLINGU 10 mg BID YAYA Administration Trazodone HCl 100 mg 03/29/21 21:00 03/31/21 19:47 Trazodone Hcl 100 Mg Tablet PO 100 mg BEDTIME YAYA Administration Allergies Allergies Allergy/AdvReac Type Severity Reaction Status Date / Time lisinopril [LISINOPRIL] Allergy Intermediate RASH Verified 02/06/21 14:59 Assessment & Plan Assessment & Plan (1) Bipolar affective, manic, severe w/ psych: Status: Acute Code(s): F31.2 - Bipolar disorder, current episode manic severe with psychotic features Assessment and Plan: 1. Continue Olanzapine 10mg po BID 2. Continue Depakote 500mg po BID- will check levels + ammonia level 3. continue Clonazepam 1mg po BID. 4. Continue Trazodone 100mg po qhs. Greater than 50% of the session was spent on counseling and/or coordination of care Reason for contiued inpatient stay Substantial Risk for: harm to self, harm to others and inability to function
[2021-04-01] MEDS: OLANZapine 10 MG TABLET PO (13:40)
[2021-04-01] MEDS: Tamsulosin HCL 0.4 MG CAPSULE PO (14:13)
[2021-04-01 15:39] LABS: Alanine Aminotransferase 22 U/L (0-40); Albumin Level 3.5 g/dL (3.5-5.0); Anion Gap 12 (12-20); Aspartate Amino Transferase 26 U/L (5-37); Bilirubin Total 0.4 mg/dL (0.0-1.0); Blood Urea Nitrogen 25 mg/dL (9-16); Carbon Dioxide 30 mmol/L (22-29); Chloride 107 mmol/L (96-108); Creatinine Clr Calc Pharmacy 70.4; Estimated Glomerular Filt Rate > 60; Glucose Random 77 mg/dL (60-115); Potassium 4.1 mmol/L (3.3-5.1); Sodium 145 mmol/L (135-145); Total Protein 6.1 g/dL (6.5-8.0)
[2021-04-01 15:43] LABS: Alkaline Phosphatase 65 U/L (39-117)
[2021-04-01] MEDS: Finasteride 5 MG TABLET PO (16:37)
[2021-04-01 18:00] VITALS: BP 164/64; PULSE 54; RESP 18; TEMP 36.4; O2SAT 96
[2021-04-01] MEDS: Simethicone 80 MG TAB.CHEW PO (18:40)
--- NOTE | 2021-04-01 20:38 | PC.NURSE ---
At approximately 14:00 Patient reported difficultly urinating. Reported to Provider Malaika Corona. Bladder Scan ordered and obtained. Bladder Scan amount 579 ml. Straight Cath attempted but not successful due to Coiling. Patient attempted to void after Straight Cath and was successful. Post Void Bladder Scan 30 ml. Will continue to monitor and assess.
[2021-04-01] MEDS: risperiDONE 2 MG TABLET PO (21:00)
[2021-04-01] MEDS: traZODone HCL 100 MG TABLET PO (21:00)
[2021-04-01] MEDS: Atorvastatin Calcium 40 MG TABLET PO (21:00)
[2021-04-02 06:00] VITALS: BP 136/74; PULSE 63; RESP 18; TEMP 36.3; O2SAT 98
[2021-04-02] MEDS: Levothyroxine Sodium 200 MCG TABLET PO (06:57)
[2021-04-02 08:25] VITALS: BP 147/70; PULSE 61; RESP 16; TEMP 36.4; O2SAT 97
[2021-04-02] MEDS: Tamsulosin HCL 0.4 MG CAPSULE PO (08:27)
[2021-04-02] MEDS: Omeprazole 20 MG CAPSULE.DR PO (08:27)
[2021-04-02] MEDS: Finasteride 5 MG TABLET PO (08:27)
[2021-04-02] MEDS: Divalproex Sodium 500 MG TABLET.DR PO ×2 (08:27→20:10)
[2021-04-02] MEDS: OLANZapine ODT 10 MG TAB.RAPDIS TRANSLINGU (08:27)
[2021-04-02 08:28] VITALS: BP 147/70; PULSE 61
[2021-04-02] MEDS: clonazePAM 1 MG TABLET PO (08:28)
[2021-04-02] MEDS: amLODIPine Besylate 5 MG TABLET PO (08:28)
--- NOTE | 2021-04-02 10:52 | HO.PSYCHPN ---
Subjective Subjective Date of Service: 04/02/21 Reason For Visit: Susy and psychosis Interim History: Per nursing, pt slept through the night. He had reported last evening that he was leaving as God told him this was the plan. However, he did not become agitated or irritable when told that was not the plan. Today, he reports he feels tired. He reports he is hearing less voices of God and the devil. He is not insisting on having to leave the unit because he is a millionare or because he is getting . He does seem slightly sedated during the day, we discussed as he is more stable psychiatrically, medication like clonazepam can be decreased. He denies SI/HI. He reports BM today, urinating, PVR less than 300ml. No need to straight cath. No cogwheel noted on exam. No EPS. No resting tremors noted. Review of Systems Review of Systems Unremarkable Constitutional: Reports as per HPI Eyes: Reports as per HPI Reports as per HPI Cardiovascular: Reports as per HPI, Denies chest pain, Denies lightheadedness and Denies dyspnea Respiratory: Reports as per HPI and Denies dyspnea Gastrointestinal: Reports as per HPI, Denies constipation and Denies diarrhea Genitourinary: Reports as per HPI Musculoskeletal: Reports as per HPI Skin/Breast: Reports as per HPI Reports as per HPI and Reports tremor(s) Psychiatric: Reports abnormal sleep pattern, Reports anxiety, Reports irritability and Reports paranoia Mental Status Exam Mental Status Exam Narrative: Appearance: casually groomed, fair hygiene, in NAD Behavior: irritable, agitated Psychomotor: significant agitation Speech: clear, pressured rate/rhythm/load volume, spontaneous, hyperverbal TP: tangential, derailment at times TC: jew and grandiose delusions Mood: fine Affect:labile SI:denies HI:denies AH/VH:AH of God Delusions:jew and grandiose delusions, thinks he is God, millionaire Insight/judgment:impaired x 2 Memory/cog: alert, impaired secondary to psychiatric symptoms. Diagnostics Vital Signs (24Hr): Vital Signs - 24 hr 04/01/21 18:00 04/02/21 06:00 04/02/21 08:25 Temperature 97.6 F 97.4 F 97.5 F Pulse Rate 54 63 61 Respiratory Rate 18 18 16 Blood Pressure 164/64 H 136/74 147/70 H Pulse Oximetry 96 98 97 04/02/21 08:28 Temperature Pulse Rate 61 Respiratory Rate Blood Pressure 147/70 H Pulse Oximetry Body Mass Index 29.5 Labs Results: 03/28/21 13:53 04/01/21 14:48 Labs: Laboratory Results - last 48 hr 04/01/21 14:48 Sodium 145 Potassium 4.1 Chloride 107 Carbon Dioxide 30 H Anion Gap 12 BUN 25 H Creatinine 1.07 Estim Creat Clear Calc 70.4 Estimated GFR > 60 Random Glucose 77 D Calcium 9.0 Total Bilirubin 0.4 AST 26 ALT 22 Alkaline Phosphatase 65 Total Protein 6.1 L Albumin 3.5 Imaging Radiology Impressions: ITS Impressions Chest X-Ray 03/28/21 13:28 IMPRESSION: Unremarkable chest exam. Head CT 03/28/21 13:33 IMPRESSION: No acute intracranial process seen. Medications Medications Current Medications Generic Name Dose Route Start Last Admin Trade Name Freq PRN Reason Stop Dose Admin Acetaminophen 650 mg 03/29/21 01:50 03/30/21 20:43 Acetaminophen 325 Mg Tablet PO 650 mg Q6H PRN Administration Headache/Pain Mild Scale (1-3) Al Hydroxide/Mg Hydroxide 30 ml 03/29/21 01:50 Magnesium Hydrox/Alum Hydrox 30 Ml Oral.Susp PO Q6H PRN Heartburn/Nausea Albuterol Sulfate 4 puff 03/29/21 01:50 Albuterol Sulfate 90 Mcg 8 Gm Inhaler INHALE RQ4H PRN short of breath, wheezing Albuterol Sulfate 2.5 mg 04/02/21 10:49 Albuterol Sulfate (0.083%) 2.5 Mg/3 Ml Vial.Neb INHALE TID PRN wheezing/sob Amlodipine Besylate 5 mg 04/02/21 09:00 04/02/21 08:28 Amlodipine Besylate 5 Mg Tablet PO 5 mg DAILY YAYA Administration Protocol Atorvastatin Calcium 40 mg 04/01/21 21:00 04/01/21 21:00 Atorvastatin Calcium 40 Mg Tablet PO 40 mg BEDTIME YAYA Administration Dicyclomine HCl 10 mg 03/29/21 01:50 04/01/21 08:34 Dicyclomine Hcl 10 Mg Capsule PO 10 mg TID PRN Administration GI pain Divalproex Sodium 500 mg 03/29/21 15:00 04/02/21 08:27 Divalproex Sodium 500 Mg Tablet. PO 500 mg BID YAYA Administration Finasteride 5 mg 04/01/21 14:10 04/02/21 08:27 Finasteride 5 Mg Tablet PO 5 mg DAILY YAYA Administration Fluphenazine HCl 2.5 mg 03/29/21 15:55 03/31/21 08:35 Fluphenazine Hcl 2.5 Mg Tablet PO 2.5 mg Q6H PRN Administration agitation Levothyroxine Sodium 200 mcg 04/02/21 06:00 04/02/21 06:57 Levothyroxine Sodium 200 Mcg Tablet PO 200 mcg DAILY@0600 YAYA Administration Lorazepam 1 mg 03/29/21 14:30 03/31/21 19:46 Lorazepam 1 Mg Tablet PO 1 mg Q4H PRN Administration agitation anxiety Magnesium Hydroxide 30 ml 03/29/21 01:50 04/01/21 08:34 Milk Of Magnesia 30 Ml Oral.Susp PO 30 ml DAILY PRN Administration Constipation Olanzapine 10 mg 04/02/21 09:00 04/02/21 08:27 Olanzapine Odt 10 Mg Tab.Rapdis TRANSLINGU 10 mg DAILY YAYA Administration Omeprazole 20 mg 04/02/21 08:00 04/02/21 08:27 Omeprazole 20 Mg Capsule. PO 20 mg DAILY@0800 YAYA Administration Risperidone 2 mg 04/01/21 21:00 04/01/21 21:00 Risperidone 2 Mg Tablet PO 2 mg BEDTIME YAYA Administration Simethicone 80 mg 04/01/21 18:13 04/01/21 18:40 Simethicone 80 Mg Tab.Chew PO 80 mg QIDWMHS PRN Administration GI Upset Tamsulosin HCl 0.4 mg 04/01/21 14:10 04/02/21 08:27 Tamsulosin Hcl 0.4 Mg Capsule PO 0.4 mg DAILY YAYA Administration Trazodone HCl 100 mg 03/29/21 21:00 04/01/21 21:00 Trazodone Hcl 100 Mg Tablet PO 100 mg BEDTIME YAYA Administration Allergies Allergies Allergy/AdvReac Type Severity Reaction Status Date / Time lisinopril [LISINOPRIL] Allergy Intermediate RASH Verified 02/06/21 14:59 Assessment & Plan Assessment & Plan (1) Bipolar affective, manic, severe w/ psych: Status: Acute Code(s): F31.2 - Bipolar disorder, current episode manic severe with psychotic features Assessment and Plan: 1. discussed switching olanzapine to risperidone- considering MIKE. Continue risperidone 2mg po qhs. Olanzapine 10mg po daily. 2. d/c clonazepam as pt calmer, somewhat somnolent during the day. 3. continue trazodone for sleep. (2) COPD (chronic obstructive pulmonary disease): Qualifiers: COPD type: unspecified COPD Qualified Code(s): J44.9 - Chronic obstructive pulmonary disease, unspecified Status: Acute Code(s): J44.9 - Chronic obstructive pulmonary disease, unspecified Assessment and Plan: continue albuterol nebulizer PRN and inhaler (3) Benign essential hypertension: Status: Acute Code(s): I10 - Essential (primary) hypertension Assessment and Plan: - amlodipine increase to 5mg po daily due to persistent hypertension. (4) Diabetes mellitus: Qualifiers: Diabetes mellitus type: type 2 Diabetes mellitus predatory animal exterminator insulin use: without fpc use Diabetes mellitus complication status: without complication Qualified Code(s): E11.9 - Type 2 diabetes mellitus without complications Status: Acute Code(s): E11.9 - Type 2 diabetes mellitus without complications Assessment and Plan: A1C less than 6% (5) CAD (coronary artery disease): Qualifiers: Coronary Disease-Associated Artery/Lesion type: [place] artery [place] vs. transplanted heart: [place] heart Associated angina: without angina Qualified Code(s): I25.10 - Atherosclerotic heart disease of [place] coronary artery without angina pectoris Status: Acute Code(s): I25.10 - Atherosclerotic heart disease of [place] coronary artery without angina pectoris Assessment and Plan: continue atorvastatin (6) Constipation: Qualifiers: Constipation type: unspecified constipation type Qualified Code(s): K59.00 - Constipation, unspecified Status: Acute Code(s): K59.00 - Constipation, unspecified (7) GERD (gastroesophageal reflux disease): Qualifiers: Esophagitis presence: without esophagitis Qualified Code(s): K21.9 - Gastro-esophageal reflux disease without esophagitis Status: Acute Code(s): K21.9 - Gastro-esophageal reflux disease without esophagitis (8) Abdominal pain, chronic, right lower quadrant: Status: Acute Code(s): R10.31 - Right lower quadrant pain; G89.29 - Other chronic pain (9) Pure hypercholesterolemia: Status: Acute Code(s): E78.00 - Pure hypercholesterolemia, unspecified Greater than 50% of the session was spent on counseling and/or coordination of care Reason for contiued inpatient stay Substantial Risk for: harm to others and inability to function
[2021-04-02] MEDS: OLANZapine 10 MG TABLET PO (11:49)
[2021-04-02] MEDS: LORazepam 1 MG TABLET PO ×2 (16:10→20:10)
[2021-04-02] MEDS: Atorvastatin Calcium 40 MG TABLET PO (20:10)
[2021-04-02] MEDS: risperiDONE 2 MG TABLET PO (20:10)
[2021-04-02] MEDS: traZODone HCL 100 MG TABLET PO (20:10)
[2021-04-03] MEDS: Levothyroxine Sodium 200 MCG TABLET PO (05:03)
[2021-04-03] MEDS: LORazepam 1 MG TABLET PO ×2 (05:03→20:38)
[2021-04-03 07:48] LABS: Valproate 52.9 mcg/mL (50.0-100.0)
--- NOTE | 2021-04-03 08:19 | P.PNPSI_ITS ---
Subjective Subjective Date of Service: 04/04/21 Reason For Visit: Susy and psychosis Interim History: Per nursing, pt slept through the night. Pt overall calmer, less irritable and labile. He continues to report that he is GOd, although states that God not talking to him as often as he was. He reports having constipation. No urinary retention or urgency nor incontinence. He has been mos tly in bed, visible at times in TV room, minimally interactive with peers. He denies SI/HI. He demands to be discharged, does not think he needs psychiatric treatment. Offered if he wanted to sign 3 day notice but he declined stating he would think about it. Taking medications as prescribed. No cogwheel noted on exam. No EPS. No resting tremors noted. Review of Systems Review of Systems Unremarkable Constitutional: Reports as per HPI Eyes: Reports as per HPI Reports as per HPI Cardiovascular: Reports as per HPI, Denies chest pain, Denies lightheadedness and Denies dyspnea Respiratory: Reports as per HPI and Denies dyspnea Gastrointestinal: Reports as per HPI, Denies constipation and Denies diarrhea Genitourinary: Reports as per HPI Musculoskeletal: Reports as per HPI Skin/Breast: Reports as per HPI Reports as per HPI and Reports tremor(s) Psychiatric: Reports abnormal sleep pattern, Reports anxiety, Reports irritability and Reports paranoia Mental Status Exam Mental Status Exam Narrative: Appearance: casually groomed, fair hygiene, in NAD Behavior: irritable, agitated Psychomotor: significant agitation Speech: clear, pressured rate/rhythm/load volume, spontaneous, hyperverbal TP: tangential, derailment at times TC: yazdanism and grandiose delusions Mood: fine Affect:labile SI:denies HI:denies AH/VH:AH of God Delusions:yazdanism and grandiose delusions, thinks he is God, millionaire Insight/judgment:impaired x 2 Memory/cog: alert, impaired secondary to psychiatric symptoms. Diagnostics Vital Signs (24Hr): Vital Signs - 24 hr 04/03/21 09:00 04/03/21 18:00 04/04/21 06:00 Temperature 97.4 F 97.4 F Pulse Rate 59 51 Respiratory Rate 16 18 Blood Pressure 171/82 H 133/68 Pulse Oximetry 98 97 04/04/21 08:12 Temperature Pulse Rate 62 Respiratory Rate Blood Pressure 142/70 H Pulse Oximetry Body Mass Index 29.5 Labs Results: 03/28/21 13:53 04/01/21 14:48 Labs: Laboratory Results - last 48 hr 04/03/21 06:34 Valproic Acid 52.9 Imaging Radiology Impressions: ITS Impressions Chest X-Ray 03/28/21 13:28 IMPRESSION: Unremarkable chest exam. Head CT 03/28/21 13:33 IMPRESSION: No acute intracranial process seen. Medications Medications Current Medications Generic Name Dose Route Start Last Admin Trade Name Freq PRN Reason Stop Dose Admin Acetaminophen 650 mg 03/29/21 01:50 04/04/21 06:35 Acetaminophen 325 Mg Tablet PO 650 mg Q6H PRN Administration Headache/Pain Mild Scale (1-3) Al Hydroxide/Mg Hydroxide 30 ml 03/29/21 01:50 Magnesium Hydrox/Alum Hydrox 30 Ml Oral.Susp PO Q6H PRN Heartburn/Nausea Albuterol Sulfate 4 puff 03/29/21 01:50 Albuterol Sulfate 90 Mcg 8 Gm Inhaler INHALE RQ4H PRN short of breath, wheezing Albuterol Sulfate 2.5 mg 04/02/21 10:49 Albuterol Sulfate (0.083%) 2.5 Mg/3 Ml Vial.Neb INHALE TID PRN wheezing/sob Amlodipine Besylate 5 mg 04/02/21 09:00 04/04/21 08:12 Amlodipine Besylate 5 Mg Tablet PO 5 mg DAILY YAYA Administration Protocol Atorvastatin Calcium 40 mg 04/01/21 21:00 04/03/21 20:39 Atorvastatin Calcium 40 Mg Tablet PO 40 mg BEDTIME YAYA Administration Dicyclomine HCl 10 mg 03/29/21 01:50 04/01/21 08:34 Dicyclomine Hcl 10 Mg Capsule PO 10 mg TID PRN Administration GI pain Divalproex Sodium 500 mg 03/29/21 15:00 04/04/21 08:12 Divalproex Sodium 500 Mg Tablet.Dr PO 500 mg BID YAYA Administration Finasteride 5 mg 04/01/21 14:10 04/04/21 08:13 Finasteride 5 Mg Tablet PO 5 mg DAILY YAYA Administration Fluphenazine HCl 2.5 mg 03/29/21 15:55 04/03/21 14:39 Fluphenazine Hcl 2.5 Mg Tablet PO 2.5 mg Q6H PRN Administration agitation Levothyroxine Sodium 200 mcg 04/02/21 06:00 04/04/21 06:07 Levothyroxine Sodium 200 Mcg Tablet PO 200 mcg DAILY@0600 YAYA Administration Lorazepam 1 mg 03/29/21 14:30 04/04/21 06:07 Lorazepam 1 Mg Tablet PO 1 mg Q4H PRN Administration agitation anxiety Magnesium Hydroxide 30 ml 03/29/21 01:50 04/01/21 08:34 Milk Of Magnesia 30 Ml Oral.Susp PO 30 ml DAILY PRN Administration Constipation Olanzapine 10 mg 04/02/21 09:00 04/04/21 08:12 Olanzapine Odt 10 Mg Tab.Rapdis TRANSLINGU 10 mg DAILY YAYA Administration Omeprazole 20 mg 04/02/21 08:00 04/04/21 08:12 Omeprazole 20 Mg Capsule.Dr PO 20 mg DAILY@0800 YAYA Administration Risperidone 2 mg 04/01/21 21:00 04/03/21 20:39 Risperidone 2 Mg Tablet PO 2 mg BEDTIME YAYA Administration Simethicone 80 mg 04/01/21 18:13 04/01/21 18:40 Simethicone 80 Mg Tab.Chew PO 80 mg QIDWMHS PRN Administration GI Upset Tamsulosin HCl 0.4 mg 04/01/21 14:10 04/04/21 08:13 Tamsulosin Hcl 0.4 Mg Capsule PO 0.4 mg DAILY YAYA Administration Trazodone HCl 100 mg 03/29/21 21:00 04/03/21 20:38 Trazodone Hcl 100 Mg Tablet PO 100 mg BEDTIME YAYA Administration Allergies Allergies Allergy/AdvReac Type Severity Reaction Status Date / Time lisinopril [LISINOPRIL] Allergy Intermediate RASH Verified 02/06/21 14:59 Assessment & Plan Assessment & Plan (1) Bipolar affective, manic, severe w/ psych: Status: Acute Code(s): F31.2 - Bipolar disorder, current episode manic severe with psychotic features Assessment and Plan: 1. discussed switching olanzapine to risperidone- considering MIKE. Continue risperidone 2mg po qhs. Olanzapine 10mg po daily. 2. d/c clonazepam as pt calmer, somewhat somnolent during the day. 3. continue trazodone for sleep. (2) COPD (chronic obstructive pulmonary disease): Qualifiers: COPD type: unspecified COPD Qualified Code(s): J44.9 - Chronic obstructive pulmonary disease, unspecified Status: Acute Code(s): J44.9 - Chronic obstructive pulmonary disease, unspecified Assessment and Plan: continue albuterol nebulizer PRN and inhaler (3) Benign essential hypertension: Status: Acute Code(s): I10 - Essential (primary) hypertension Assessment and Plan: - amlodipine increase to 5mg po daily due to persistent hypertension. (4) Diabetes mellitus: Qualifiers: Diabetes mellitus type: type 2 Diabetes mellitus detention insulin use: without intermediate manager use Diabetes mellitus complication status: without complication Qualified Code(s): E11.9 - Type 2 diabetes mellitus without complications Status: Acute Code(s): E11.9 - Type 2 diabetes mellitus without complications Assessment and Plan: A1C less than 6% (5) CAD (coronary artery disease): Qualifiers: Coronary Disease-Associated Artery/Lesion type: [place] artery [place] vs. transplanted heart: [place] heart Associated angina: without angina Qualified Code(s): I25.10 - Atherosclerotic heart disease of [place] coronary artery without angina pectoris Status: Acute Code(s): I25.10 - Atherosclerotic heart disease of [place] coronary artery without angina pectoris Assessment and Plan: continue atorvastatin (6) Constipation: Qualifiers: Constipation type: unspecified constipation type Qualified Code(s): K59.00 - Constipation, unspecified Status: Acute Code(s): K59.00 - Constipation, unspecified (7) GERD (gastroesophageal reflux disease): Qualifiers: Esophagitis presence: without esophagitis Qualified Code(s): K21.9 - Gastro-esophageal reflux disease without esophagitis Status: Acute Code(s): K21.9 - Gastro-esophageal reflux disease without esophagitis (8) Abdominal pain, chronic, right lower quadrant: Status: Acute Code(s): R10.31 - Right lower quadrant pain; G89.29 - Other chronic pain (9) Pure hypercholesterolemia: Status: Acute Code(s): E78.00 - Pure hypercholesterolemia, unspecified Greater than 50% of the session was spent on counseling and/or coordination of care Reason for contiued inpatient stay Substantial Risk for: inability to function
[2021-04-03] MEDS: Omeprazole 20 MG CAPSULE.DR PO (08:20)
[2021-04-03] MEDS: Finasteride 5 MG TABLET PO (08:21)
[2021-04-03] MEDS: OLANZapine ODT 10 MG TAB.RAPDIS TRANSLINGU (08:23)
[2021-04-03] MEDS: Divalproex Sodium 500 MG TABLET.DR PO ×2 (08:23→20:38)
[2021-04-03] MEDS: amLODIPine Besylate 5 MG TABLET PO (08:23)
[2021-04-03] MEDS: Tamsulosin HCL 0.4 MG CAPSULE PO (08:24)
[2021-04-03 09:00] VITALS: BP 171/82; PULSE 59; TEMP 36.3; O2SAT 98
[2021-04-03] MEDS: fluPHENAZine HCl 2.5 MG TABLET PO (14:39)
[2021-04-03 18:00] VITALS: RESP 16
[2021-04-03] MEDS: traZODone HCL 100 MG TABLET PO (20:38)
[2021-04-03] MEDS: Atorvastatin Calcium 40 MG TABLET PO (20:39)
[2021-04-03] MEDS: risperiDONE 2 MG TABLET PO (20:39)
--- NOTE | 2021-04-03 20:39 | PC.NURSE ---
PT was becoming increasingly agitated, slamming doors and yelling at staff to leave him alone. This nurse offered the PT his PRN Ativan to which PT responded, Leave me alone, I don't trust you, and I've been betrayed! . PT also stated that he wants to go home and doesn't need to be here. This nurse informed the PT that he should take his medications so that he can feel better and eventually go home. PT then stated that he would take his meds. This nurse then went to collect PT's scheduled night time meds. Upon returning to the PT's room with his meds, the PT stated, I do not want those medications because you are trying to poison me. This nurse again informed the PT that he should take his meds in order to go home sooner. PT then took his night time meds.
[2021-04-04] MEDS: LORazepam 1 MG TABLET PO ×2 (00:56→06:07)
[2021-04-04 06:00] VITALS: BP 133/68; PULSE 51; RESP 18; TEMP 36.3; O2SAT 97
[2021-04-04] MEDS: Levothyroxine Sodium 200 MCG TABLET PO (06:07)
[2021-04-04] MEDS: Acetaminophen 325 MG TABLET 650 MG PO (06:35)
[2021-04-04 08:12] VITALS: BP 142/70; PULSE 62
[2021-04-04] MEDS: Omeprazole 20 MG CAPSULE.DR PO (08:12)
[2021-04-04] MEDS: OLANZapine ODT 10 MG TAB.RAPDIS TRANSLINGU ×2 (08:12→16:28)
[2021-04-04] MEDS: Divalproex Sodium 500 MG TABLET.DR PO (08:12)
[2021-04-04] MEDS: amLODIPine Besylate 5 MG TABLET PO (08:12)
[2021-04-04] MEDS: Finasteride 5 MG TABLET PO (08:13)
[2021-04-04] MEDS: Tamsulosin HCL 0.4 MG CAPSULE PO (08:13)
[2021-04-04] MEDS: risperiDONE 1 MG TABLET PO (09:20)
--- NOTE | 2021-04-04 11:10 | P.PNPSI_ITS ---
Subjective Subjective Date of Service: 04/08/21 Reason For Visit: Susy and psychosis Interim History: Pt reports he is God. He reports hearing voices of the God. He reports sleeping and eating well but reports constipation. He denies suicidal or homicidal ideation. He has been less agitated, asking to be discharged but declines to sign 3 day notice. Review of Systems Review of Systems Unremarkable Constitutional: Reports as per HPI Eyes: Reports as per HPI Reports as per HPI Cardiovascular: Reports as per HPI, Denies chest pain, Denies lightheadedness and Denies dyspnea Respiratory: Reports as per HPI and Denies dyspnea Gastrointestinal: Reports as per HPI, Denies constipation and Denies diarrhea Genitourinary: Reports as per HPI Musculoskeletal: Reports as per HPI Skin/Breast: Reports as per HPI Reports as per HPI and Reports tremor(s) Psychiatric: Reports abnormal sleep pattern, Reports anxiety, Reports irritability and Reports paranoia Mental Status Exam Mental Status Exam Narrative: Appearance: casually groomed, fair hygiene, in NAD Behavior: irritable, agitated Psychomotor: significant agitation Speech: clear, pressured rate/rhythm/load volume, spontaneous, hyperverbal TP: tangential, derailment at times TC: caodaism and grandiose delusions Mood: fine Affect:labile SI:denies HI:denies AH/VH:AH of God Delusions:caodaism and grandiose delusions, thinks he is God, millionaire Insight/judgment:impaired x 2 Memory/cog: alert, impaired secondary to psychiatric symptoms. Diagnostics Vital Signs (24Hr): Body Mass Index 29.5 Labs Results: 03/28/21 13:53 04/01/21 14:48 Labs: Laboratory Results - last 48 hr 04/08/21 04/08/21 06:43 06:43 TSH 10.94 H Free T4 1.15 Imaging Radiology Impressions: ITS Impressions Chest X-Ray 03/28/21 13:28 IMPRESSION: Unremarkable chest exam. Head CT 03/28/21 13:33 IMPRESSION: No acute intracranial process seen. Medications Medications Current Medications Generic Name Dose Route Start Last Admin Trade Name Freq PRN Reason Stop Dose Admin Acetaminophen 650 mg 03/29/21 01:50 04/05/21 00:09 Acetaminophen 325 Mg Tablet PO 650 mg Q6H PRN Administration Headache/Pain Mild Scale (1-3) Al Hydroxide/Mg Hydroxide 30 ml 03/29/21 01:50 04/05/21 21:46 Magnesium Hydrox/Alum Hydrox 30 Ml Oral.Susp PO 30 ml Q6H PRN Administration Heartburn/Nausea Albuterol Sulfate 4 puff 03/29/21 01:50 Albuterol Sulfate 90 Mcg 8 Gm Inhaler INHALE RQ4H PRN short of breath, wheezing Albuterol Sulfate 2.5 mg 04/02/21 10:49 Albuterol Sulfate (0.083%) 2.5 Mg/3 Ml Vial.Neb INHALE TID PRN wheezing/sob Amlodipine Besylate 5 mg 04/02/21 09:00 04/08/21 10:27 Amlodipine Besylate 5 Mg Tablet PO 5 mg DAILY YAYA Administration Protocol Atorvastatin Calcium 40 mg 04/01/21 21:00 04/07/21 20:10 Atorvastatin Calcium 40 Mg Tablet PO 40 mg BEDTIME YAYA Administration Dicyclomine HCl 10 mg 03/29/21 01:50 04/01/21 08:34 Dicyclomine Hcl 10 Mg Capsule PO 10 mg TID PRN Administration GI pain Divalproex Sodium 500 mg 03/29/21 15:00 04/08/21 10:27 Divalproex Sodium 500 Mg Tablet. PO 500 mg BID YAYA Administration Finasteride 5 mg 04/01/21 14:10 04/08/21 10:27 Finasteride 5 Mg Tablet PO 5 mg DAILY YAYA Administration Levothyroxine Sodium 200 mcg 04/02/21 06:00 04/08/21 05:39 Levothyroxine Sodium 200 Mcg Tablet PO 200 mcg DAILY@0600 YAYA Administration Lorazepam 1 mg 04/07/21 17:11 04/08/21 00:31 Lorazepam 1 Mg Tablet PO 1 mg Q4H PRN Administration anxiety/restlessness Magnesium Hydroxide 30 ml 03/29/21 01:50 04/01/21 08:34 Milk Of Magnesia 30 Ml Oral.Susp PO 30 ml DAILY PRN Administration Constipation Olanzapine 10 mg 04/04/21 08:24 04/06/21 14:40 Olanzapine Odt 10 Mg Tab.Rapdis TRANSLINGU 10 mg Q6H PRN Administration agitation Omeprazole 20 mg 04/02/21 08:00 04/08/21 10:27 Omeprazole 20 Mg Capsule. PO 20 mg DAILY@0800 YAYA Administration Polyethylene Glycol 17 gm 04/04/21 13:55 04/08/21 10:30 Polyethylene Glycol 3350 17 Gm Powd.Pack PO Not Given DAILY YAYA Risperidone 2 mg 04/01/21 21:00 04/07/21 20:10 Risperidone 2 Mg Tablet PO 2 mg BEDTIME YAYA Administration Risperidone 1 mg 04/04/21 08:25 04/08/21 10:27 Risperidone 1 Mg Tablet PO 1 mg DAILY YAYA Administration Simethicone 80 mg 04/01/21 18:13 04/01/21 18:40 Simethicone 80 Mg Tab.Chew PO 80 mg QIDWMHS PRN Administration GI Upset Tamsulosin HCl 0.4 mg 04/01/21 14:10 04/08/21 10:27 Tamsulosin Hcl 0.4 Mg Capsule PO 0.4 mg DAILY YAYA Administration Trazodone HCl 100 mg 03/29/21 21:00 04/07/21 20:10 Trazodone Hcl 100 Mg Tablet PO 100 mg BEDTIME YAYA Administration Allergies Allergies Allergy/AdvReac Type Severity Reaction Status Date / Time lisinopril [LISINOPRIL] Allergy Intermediate RASH Verified 02/06/21 14:59 Assessment & Plan Assessment & Plan (1) Bipolar affective, manic, severe w/ psych: Status: Acute Code(s): F31.2 - Bipolar disorder, current episode manic severe with psychotic features Assessment and Plan: Patient calmer less agitated more focused and organized. Continue Depakote risp (2) COPD (chronic obstructive pulmonary disease): Qualifiers: COPD type: unspecified COPD Qualified Code(s): J44.9 - Chronic obstructive pulmonary disease, unspecified Status: Acute Code(s): J44.9 - Chronic obstructive pulmonary disease, unspecified Assessment and Plan: continue albuterol nebulizer PRN and inhaler (3) Benign essential hypertension: Status: Acute Code(s): I10 - Essential (primary) hypertension Assessment and Plan: - amlodipine increase to 5mg po daily due to persistent hypertension. (4) Diabetes mellitus: Qualifiers: Diabetes mellitus type: type 2 Diabetes mellitus intermediate teacher insulin use: without intermediate teacher use Diabetes mellitus complication status: without complication Qualified Code(s): E11.9 - Type 2 diabetes mellitus without complications Status: Acute Code(s): E11.9 - Type 2 diabetes mellitus without complications Assessment and Plan: A1C less than 6% (5) CAD (coronary artery disease): Qualifiers: Coronary Disease-Associated Artery/Lesion type: [place] artery [place] vs. transplanted heart: [place] heart Associated angina: without angina Hussain lified Code(s): I25.10 - Atherosclerotic heart disease of [place] coronary artery without angina pectoris Status: Acute Code(s): I25.10 - Atherosclerotic heart disease of [place] coronary artery without angina pectoris Assessment and Plan: continue atorvastatin (6) Constipation: Qualifiers: Constipation type: unspecified constipation type Qualified Code(s): K59.00 - Constipation, unspecified Status: Acute Code(s): K59.00 - Constipation, unspecified (7) GERD (gastroesophageal reflux disease): Qualifiers: Esophagitis presence: without esophagitis Qualified Code(s): K21.9 - Gastro-esophageal reflux disease without esophagitis Status: Acute Code(s): K21.9 - Gastro-esophageal reflux disease without esophagitis (8) Abdominal pain, chronic, right lower quadrant: Status: Acute Code(s): R10.31 - Right lower quadrant pain; G89.29 - Other chronic pain (9) Pure hypercholesterolemia: Status: Acute Code(s): E78.00 - Pure hypercholesterolemia, unspecified Greater than 50% of the session was spent on counseling and/or coordination of care Reason for contiued inpatient stay Substantial Risk for: inability to function
[2021-04-04 14:24] VITALS: BP 142/70; PULSE 62
[2021-04-04] MEDS: polyethylene glycoL 3350 17 GM POWD.PACK PO (14:37)
--- NOTE | 2021-04-04 15:07 | PC.NURSE ---
Pt reported midafternoon of RLQ pain, Abd SRNT. Patient stated was constipated, also reported moving bowels this morning. Scheduled Miralax was ordered and started, pending results.
--- NOTE | 2021-04-04 16:42 | PC.NURSE ---
Physical Therapist consult occurred and recommended walker and gait belt for any long distance walking; patient adamantly refused using a walker when offered and teaching provided from this nurse about the recommendation. One assist in room and 2 assist when walking longer distance to day room. Remains hunched in stature and slightly unsteady while ambulating.
[2021-04-04 17:42] VITALS: BP 140/67; PULSE 62; RESP 18; TEMP 37.1; O2SAT 100
--- NOTE | 2021-04-04 18:07 | PC.NURSE ---
Patient agreed for his mother to take his checkbook from his belongings; Clemente CHE and this RN witnessed patient stating his agreement to mother taking his wallet. This RN and 2nd RN Rema gave wallet to patient's mother, Gabriela, to take home.
[2021-04-05] MEDS: risperiDONE 2 MG TABLET PO ×2 (00:09→20:14)
[2021-04-05] MEDS: Acetaminophen 325 MG TABLET 650 MG PO (00:09)
[2021-04-05] MEDS: Atorvastatin Calcium 40 MG TABLET PO ×2 (00:09→20:14)
[2021-04-05] MEDS: Divalproex Sodium 500 MG TABLET.DR PO ×3 (00:10→20:13)
[2021-04-05] MEDS: traZODone HCL 100 MG TABLET PO ×2 (00:10→20:14)
[2021-04-05] MEDS: Omeprazole 20 MG CAPSULE.DR PO (10:33)
[2021-04-05] MEDS: risperiDONE 1 MG TABLET PO (10:33)
[2021-04-05] MEDS: Tamsulosin HCL 0.4 MG CAPSULE PO (10:33)
[2021-04-05] MEDS: Levothyroxine Sodium 200 MCG TABLET PO (10:34)
[2021-04-05] MEDS: amLODIPine Besylate 5 MG TABLET PO (10:34)
[2021-04-05] MEDS: Finasteride 5 MG TABLET PO (10:34)
[2021-04-05] MEDS: polyethylene glycoL 3350 17 GM POWD.PACK PO (10:35)
--- NOTE | 2021-04-05 11:28 | P.PNPSI_ITS ---
Subjective Subjective Date of Service: 04/08/21 Reason For Visit: Susy and psychosis Interim History: Pt calmer and more pleasant today. He reports his plan is to be nice to everyone. He continues to report that he is a God. He continues to report that he hears the Lord. He is less agitated but demands to leave and had brief period of agitation needing PRN. He is sleeping and eating well. He takes medications as prescribed. Review of Systems Review of Systems Unremarkable Constitutional: Reports as per HPI Eyes: Reports as per HPI Reports as per HPI Cardiovascular: Reports as per HPI, Denies chest pain, Denies lightheadedness and Denies dyspnea Respiratory: Reports as per HPI and Denies dyspnea Gastrointestinal: Reports as per HPI, Denies constipation and Denies diarrhea Genitourinary: Reports as per HPI Musculoskeletal: Reports as per HPI Skin/Breast: Reports as per HPI Reports as per HPI and Reports tremor(s) Psychiatric: Reports abnormal sleep pattern, Reports anxiety, Reports ir ritability and Reports paranoia Mental Status Exam Mental Status Exam Narrative: Appearance: casually groomed, fair hygiene, in NAD Behavior: irritable, agitated Psychomotor: significant agitation Speech: clear, pressured rate/rhythm/load volume, spontaneous, hyperverbal TP: tangential, derailment at times TC: worship and grandiose delusions Mood: fine Affect:labile SI:denies HI:denies AH/VH:AH of God Delusions:worship and grandiose delusions, thinks he is God, millionaire Insight/judgment:impaired x 2 Memory/cog: alert, impaired secondary to psychiatric symptoms. Diagnostics Vital Signs (24Hr): Body Mass Index 29.5 Labs Results: 03/28/21 13:53 04/01/21 14:48 Labs: Laboratory Results - last 48 hr 04/08/21 04/08/21 06:43 06:43 TSH 10.94 H Free T4 1.15 Imaging Radiology Impressions: ITS Impressions Chest X-Ray 03/28/21 13:28 IMPRESSION: Unremarkable chest exam. Head CT 03/28/21 13:33 IMPRESSION: No acute intracranial process seen. Medications Medications Current Medications Generic Name Dose Route Start Last Admin Trade Name Freq PRN Reason Stop Dose Admin Acetaminophen 650 mg 03/29/21 01:50 04/05/21 00:09 Acetaminophen 325 Mg Tablet PO 650 mg Q6H PRN Administration Headache/Pain Mild Scale (1-3) Al Hydroxide/Mg Hydroxide 30 ml 03/29/21 01:50 04/05/21 21:46 Magnesium Hydrox/Alum Hydrox 30 Ml Oral.Susp PO 30 ml Q6H PRN Administration Heartburn/Nausea Albuterol Sulfate 4 puff 03/29/21 01:50 Albuterol Sulfate 90 Mcg 8 Gm Inhaler INHALE RQ4H PRN short of breath, wheezing Albuterol Sulfate 2.5 mg 04/02/21 10:49 Albuterol Sulfate (0.083%) 2.5 Mg/3 Ml Vial.Neb INHALE TID PRN wheezing/sob Amlodipine Besylate 5 mg 04/02/21 09:00 04/08/21 10:27 Amlodipine Besylate 5 Mg Tablet PO 5 mg DAILY YAYA Administration Protocol Atorvastatin Calcium 40 mg 04/01/21 21:00 04/07/21 20:10 Atorvastatin Calcium 40 Mg Tablet PO 40 mg BEDTIME YAYA Administration Dicyclomine HCl 10 mg 03/29/21 01:50 04/01/21 08:34 Dicyclomine Hcl 10 Mg Capsule PO 10 mg TID PRN Administration GI pain Divalproex Sodium 500 mg 03/29/21 15:00 04/08/21 10:27 Divalproex Sodium 500 Mg Tablet. PO 500 mg BID YAYA Administration Finasteride 5 mg 04/01/21 14:10 04/08/21 10:27 Finasteride 5 Mg Tablet PO 5 mg DAILY YAYA Administration Levothyroxine Sodium 200 mcg 04/02/21 06:00 04/08/21 05:39 Levothyroxine Sodium 200 Mcg Tablet PO 200 mcg DAILY@0600 YAYA Administration Lorazepam 1 mg 04/07/21 17:11 04/08/21 00:31 Lorazepam 1 Mg Tablet PO 1 mg Q4H PRN Administration anxiety/restlessness Magnesium Hydroxide 30 ml 03/29/21 01:50 04/01/21 08:34 Milk Of Magnesia 30 Ml Oral.Susp PO 30 ml DAILY PRN Administration Constipation Olanzapine 10 mg 04/04/21 08:24 04/06/21 14:40 Olanzapine Odt 10 Mg Tab.Rapdis TRANSLINGU 10 mg Q6H PRN Administration agitation Omeprazole 20 mg 04/02/21 08:00 04/08/21 10:27 Omeprazole 20 Mg Capsule. PO 20 mg DAILY@0800 YAYA Administration Polyethylene Glycol 17 gm 04/04/21 13:55 04/08/21 10:30 Polyethylene Glycol 3350 17 Gm Powd.Pack PO Not Given DAILY YAYA Risperidone 2 mg 04/01/21 21:00 04/07/21 20:10 Risperidone 2 Mg Tablet PO 2 mg BEDTIME YAYA Administration Risperidone 1 mg 04/04/21 08:25 04/08/21 10:27 Risperidone 1 Mg Tablet PO 1 mg DAILY YAYA Administration Simethicone 80 mg 04/01/21 18:13 04/01/21 18:40 Simethicone 80 Mg Tab.Chew PO 80 mg QIDWMHS PRN Administration GI Upset Tamsulosin HCl 0.4 mg 04/01/21 14:10 04/08/21 10:27 Tamsulosin Hcl 0.4 Mg Capsule PO 0.4 mg DAILY YAYA Administration Trazodone HCl 100 mg 03/29/21 21:00 04/07/21 20:10 Trazodone Hcl 100 Mg Tablet PO 100 mg BEDTIME YYAA Administration Allergies Allergies Allergy/AdvReac Type Severity Reaction Status Date / Time lisinopril [LISINOPRIL] Allergy Intermediate RASH Verified 02/06/21 14:59 Assessment & Plan Assessment & Plan (1) Bipolar affective, manic, severe w/ psych: Status: Acute Code(s): F31.2 - Bipolar disorder, current episode manic severe with psychotic features Assessment and Plan: Patient calmer less agitated more focused and organized. Continue Depakote risp (2) COPD (chronic obstructive pulmonary disease): Qualifiers: COPD type: unspecified COPD Qualified Code(s): J44.9 - Chronic obstructive pulmonary disease, unspecified Status: Acute Code(s): J44.9 - Chronic obstructive pulmonary disease, unspecified Assessment and Plan: continue albuterol nebulizer PRN and inhaler (3) Benign essential hypertension: Status: Acute Code(s): I10 - Essential (primary) hypertension Assessment and Plan: - amlodipine increase to 5mg po daily due to persistent hypertension. 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 transplanted heart: [place] heart Associated angina: without angina Qualified Code(s): I25.10 - Atherosclerotic heart disease of [place] coronary artery without angina pectoris Status: Acute Code(s): I25.10 - Atherosclerotic heart disease of [place] coronary artery without angina pectoris Assessment and Plan: continue atorvastatin (6) Constipation: Qualifiers: Constipation type: unspecified constipation type Qualified Code(s): K59.00 - Constipation, unspecified Status: Acute Code(s): K59.00 - Constipation, unspecified (7) GERD (gastroesophageal reflux disease): Qualifiers: Esophagitis presence: without esophagitis Qualified Code(s): K21.9 - Gastro-esophageal reflux disease without esophagitis Status: Acute Code(s): K21.9 - Gastro-esophageal reflux disease without esophagitis (8) Abdominal pain, chronic, right lower quadrant: Status: Acute Code(s): R10.31 - Right lower quadrant pain; G89.29 - Other chronic pain (9) Pure hypercholesterolemia: Status: Acute Code(s): E78.00 - Pure hypercholesterolemia, unspecified Greater than 50% of the session was spent on counseling and/or coordination of care Reason for contiued inpatient stay Substantial Risk for: inability to function
[2021-04-05] MEDS: Magnesium Hydrox/Alum Hydrox 30 ML ORAL.SUSP PO ×2 (13:50→21:46)
--- NOTE | 2021-04-05 17:02 | PC.NURSE ---
Pt without dentures in hospital, asked Penny Draper for dental soft diet for pt, Penny gave TO for order. Attempted to order, but dental soft diet was not an option in diet orders. Called kitchen, they suggested low sodium diet has mushy, softer foods. Received TO from Penny Corona to order pt low sodium diet. Diet order placed.
[2021-04-05] MEDS: LORazepam 1 MG TABLET PO (19:41)
[2021-04-06] MEDS: LORazepam 1 MG TABLET PO ×2 (06:09→16:27)
[2021-04-06] MEDS: Levothyroxine Sodium 200 MCG TABLET PO (06:09)
[2021-04-06 08:12] VITALS: BP 132/65; PULSE 55
[2021-04-06] MEDS: risperiDONE 1 MG TABLET PO (08:12)
[2021-04-06] MEDS: Tamsulosin HCL 0.4 MG CAPSULE PO (08:12)
[2021-04-06] MEDS: Divalproex Sodium 500 MG TABLET.DR PO ×2 (08:12→21:34)
[2021-04-06] MEDS: Finasteride 5 MG TABLET PO (08:12)
[2021-04-06] MEDS: Omeprazole 20 MG CAPSULE.DR PO (08:12)
[2021-04-06] MEDS: polyethylene glycoL 3350 17 GM POWD.PACK PO (08:12)
[2021-04-06] MEDS: amLODIPine Besylate 5 MG TABLET PO (08:12)
--- NOTE | 2021-04-06 10:20 | P.PNPSI_ITS ---
Subjective Subjective Date of Service: 04/06/21 Reason For Visit: Susy and psychosis Subjective Notes: Conditional Voluntary Interim History: Patient remains psychotic but less agitated has mostly been accepting medication Mental Status Exam Mental Status Exam Narrative: Appearance: casually groomed, fair hygiene, in NAD Behavior: irritable, agitated Psychomotor: Who less agitated Speech: clear, pressured rate/rhythm/load volume, spontaneous, hyperverbal TP: tangential, derailment at times TC: taoism and grandiose delusions Mood: fine Affect:labile SI:denies HI:denies AH/VH:AH of God Delusions:taoism and grandiose delusions, thinks he is God, millionaire Insight/judgment:impaired x 2 Memory/cog: alert, impaired secondary to psychiatric symptoms. Diagnostics Vital Signs (24Hr): Vital Signs - 24 hr 04/06/21 08:12 Pulse Rate 55 Blood Pressure 132/65 Body Mass Index 29.5 Labs Results: 03/28/21 13:53 04/01/21 14:48 Imaging Radiology Impressions: ITS Impressions Chest X-Ray 03/28/21 13:28 IMPRESSION: Unremarkable chest exam. Head CT 03/28/21 13:33 IMPRESSION: No acute intracranial process seen. Medications Medications Current Medications Generic Name Dose Route Start Last Admin Trade Name Freq PRN Reason Stop Dose Admin Acetaminophen 650 mg 03/29/21 01:50 04/05/21 00:09 Acetaminophen 325 Mg Tablet PO 650 mg Q6H PRN Administration Headache/Pain Mild Scale (1-3) Al Hydroxide/Mg Hydroxide 30 ml 03/29/21 01:50 04/05/21 21:46 Magnesium Hydrox/Alum Hydrox 30 Ml Oral.Susp PO 30 ml Q6H PRN Administration Heartburn/Nausea Albuterol Sulfate 4 puff 03/29/21 01:50 Albuterol Sulfate 90 Mcg 8 Gm Inhaler INHALE RQ4H PRN short of breath, wheezing Albuterol Sulfate 2.5 mg 04/02/21 10:49 Albuterol Sulfate (0.083%) 2.5 Mg/3 Ml Vial.Neb INHALE TID PRN wheezing/sob Amlodipine Besylate 5 mg 04/02/21 09:00 04/06/21 08:12 Amlodipine Besylate 5 Mg Tablet PO 5 mg DAILY YAYA Administration Protocol Atorvastatin Calcium 40 mg 04/01/21 21:00 04/05/21 20:14 Atorvastatin Calcium 40 Mg Tablet PO 40 mg BEDTIME YAYA Administration Dicyclomine HCl 10 mg 03/29/21 01:50 04/01/21 08:34 Dicyclomine Hcl 10 Mg Capsule PO 10 mg TID PRN Administration GI pain Divalproex Sodium 500 mg 03/29/21 15:00 04/06/21 08:12 Divalproex Sodium 500 Mg Tablet. PO 500 mg BID YAYA Administration Finasteride 5 mg 04/01/21 14:10 04/06/21 08:12 Finasteride 5 Mg Tablet PO 5 mg DAILY YAYA Administration Levothyroxine Sodium 200 mcg 04/02/21 06:00 04/06/21 06:09 Levothyroxine Sodium 200 Mcg Tablet PO 200 mcg DAILY@0600 YAYA Administration Lorazepam 1 mg 03/29/21 14:30 04/06/21 06:09 Lorazepam 1 Mg Tablet PO 1 mg Q4H PRN Administration agitation anxiety Magnesium Hydroxide 30 ml 03/29/21 01:50 04/01/21 08:34 Milk Of Magnesia 30 Ml Oral.Susp PO 30 ml DAILY PRN Administration Constipation Olanzapine 10 mg 04/04/21 08:24 04/04/21 16:28 Olanzapine Odt 10 Mg Tab.Rapdis TRANSLINGU 10 mg Q6H PRN Administration agitation Omeprazole 20 mg 04/02/21 08:00 04/06/21 08:12 Omeprazole 20 Mg Capsule.Dr PO 20 mg DAILY@0800 YAYA Administration Polyethylene Glycol 17 gm 04/04/21 13:55 04/06/21 08:12 Polyethylene Glycol 3350 17 Gm Powd.Pack PO 17 gm DAILY YAYA Administration Risperidone 2 mg 04/01/21 21:00 04/05/21 20:14 Risperidone 2 Mg Tablet PO 2 mg BEDTIME YAYA Administration Risperidone 1 mg 04/04/21 08:25 04/06/21 08:12 Risperidone 1 Mg Tablet PO 1 mg DAILY YAYA Administration Simethicone 80 mg 04/01/21 18:13 04/01/21 18:40 Simethicone 80 Mg Tab.Chew PO 80 mg QIDWMHS PRN Administration GI Upset Tamsulosin HCl 0.4 mg 04/01/21 14:10 04/06/21 08:12 Tamsulosin Hcl 0.4 Mg Capsule PO 0.4 mg DAILY YAYA Administration Trazodone HCl 100 mg 03/29/21 21:00 04/05/21 20:14 Trazodone Hcl 100 Mg Tablet PO 100 mg BEDTIME YAYA Administration Allergies Allergies Allergy/AdvReac Type Severity Reaction Status Date / Time lisinopril [LISINOPRIL] Allergy Intermediate RASH Verified 02/06/21 14:59 Assessment & Plan Assessment & Plan (1) Bipolar affective, manic, severe w/ psych: Status: Acute Code(s): F31.2 - Bipolar disorder, current episode manic severe with psychotic features Assessment and Plan: Patient calmer less agitated more focused and organized. Continue Depakote change from olanzapine to Risperdal (2) COPD (chronic obstructive pulmonary disease): Qualifiers: COPD type: unspecified COPD Qualified Code(s): J44.9 - Chronic obstructive pulmonary disease, unspecified Status: Acute Code(s): J44.9 - Chronic obstructive pulmonary disease, unspecified Assessment and Plan: continue albuterol nebulizer PRN and inhaler (3) Benign essential hypertension: Status: Acute Code(s): I10 - Essential (primary) hypertension Assessment and Plan: - amlodipine increase to 5mg po daily due to persistent hypertension. 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 transplanted heart: [place] heart Qualified Code(s): I25.10 - Atherosclerotic heart disease of [place] coronary artery without angina pectoris Status: Acute Code(s): I25.10 - Atherosclerotic heart disease of [place] coronary artery without angina pectoris Assessment and Plan: continue atorvastatin (6) Constipation: Qualifiers: Constipation type: unspecified constipation type Qualified Code(s): K59.00 - Constipation, unspecified Status: Acute Code(s): K59.00 - Constipation, unspecified (7) GERD (gastroesophageal reflux disease): Qualifiers: Esophagitis presence: without esophagitis Qualified Code(s): K21.9 - Gastro-esophageal reflux disease without esophagitis Status: Acute Code(s): K21.9 - Gastro-esophageal reflux disease without esophagitis (8) Abdominal pain, chronic, right lower quadrant: Status: Acute Code(s): R10.31 - Right lower quadrant pain; G89.29 - Other chronic pain (9) Pure hypercholesterolemia: Status: Acute Code(s): E78.00 - Pure hypercholesterolemia, unspecified Greater than 50% of the session was spent on counseling and/or coordination of care Reason for contiued inpatient stay Substantial Risk for: inability to function and rapid decompensation
[2021-04-06] MEDS: OLANZapine ODT 10 MG TAB.RAPDIS TRANSLINGU (14:40)
[2021-04-06 17:20] VITALS: BP 153/65; PULSE 62; RESP 16; TEMP 37.3; O2SAT 98
[2021-04-06] MEDS: risperiDONE 2 MG TABLET PO (21:34)
--- NOTE | 2021-04-06 21:34 | PC.NURSE ---
PT refused half his night time meds, stated that he already took meds earlier and he feels like he is on too many meds.
--- NOTE | 2021-04-06 21:35 | PC.NURSE ---
PT requested to have his wallet out of his locker. This nurse provided the PT with his wallet that had 10 dollars in it.
[2021-04-07 06:00] VITALS: BP 135/62; PULSE 51; RESP 20; TEMP 36.8; O2SAT 97
[2021-04-07] MEDS: Levothyroxine Sodium 200 MCG TABLET PO (06:28)
[2021-04-07 08:11] VITALS: BP 139/66; PULSE 60
[2021-04-07] MEDS: amLODIPine Besylate 5 MG TABLET PO (08:11)
[2021-04-07] MEDS: polyethylene glycoL 3350 17 GM POWD.PACK PO (08:13)
[2021-04-07] MEDS: Divalproex Sodium 500 MG TABLET.DR PO ×2 (08:13→20:10)
[2021-04-07] MEDS: Tamsulosin HCL 0.4 MG CAPSULE PO (08:13)
[2021-04-07] MEDS: risperiDONE 1 MG TABLET PO (08:13)
[2021-04-07] MEDS: Omeprazole 20 MG CAPSULE.DR PO (08:13)
[2021-04-07] MEDS: Finasteride 5 MG TABLET PO (08:14)
[2021-04-07] MEDS: LORazepam 1 MG TABLET PO (12:31)
[2021-04-07] MEDS: risperiDONE 2 MG TABLET PO (20:10)
[2021-04-07] MEDS: traZODone HCL 100 MG TABLET PO (20:10)
[2021-04-07] MEDS: Atorvastatin Calcium 40 MG TABLET PO (20:10)
--- NOTE | 2021-04-07 21:08 | HO.PSYCHPN ---
Subjective Subjective Date of Service: 04/07/21 Reason For Visit: Susy and psychosis Subjective Notes: 3 Day Interim History: Patient somewhat less agitated less delusional preoccupied. Tardive dyskinesia noted on exam Medication Compliance: Intermittent Mental Status Exam Mental Status Exam Narrative: Patient somewhat disheveled cooperative when seen one-to-one was not aggressive denies thinking he is God somewhat expansive bradford warning given patient placed 3 day letter Level of Consciousness: Awake Patient Behavior: Cooperative Mood Description: Expansive Hallucinations: Auditory Delusions: Grandiose Abnormal Motor Activity Signs and Symptoms: Psychomotor Retardation Judgement: Fair Diagnostics Vital Signs (24Hr): Vital Signs - 24 hr 04/07/21 06:00 04/07/21 08:11 Temperature 98.2 F Pulse Rate 51 60 Respiratory Rate 20 Blood Pressure 135/62 139/66 Pulse Oximetry 97 Body Mass Index 29.5 Labs Results: 03/28/21 13:53 04/01/21 14:48 Imaging Radiology Impressions: ITS Impressions Chest X-Ray 03/28/21 13:28 IMPRESSION: Unremarkable chest exam. Head CT 03/28/21 13:33 IMPRESSION: No acute intracranial process seen. Medications Medications Current Medications Generic Name Dose Route Start Last Admin Trade Name Freq PRN Reason Stop Dose Admin Acetaminophen 650 mg 03/29/21 01:50 04/05/21 00:09 Acetaminophen 325 Mg Tablet PO 650 mg Q6H PRN Administration Headache/Pain Mild Scale (1-3) Al Hydroxide/Mg Hydroxide 30 ml 03/29/21 01:50 04/05/21 21:46 Magnesium Hydrox/Alum Hydrox 30 Ml Oral.Susp PO 30 ml Q6H PRN Administration Heartburn/Nausea Albuterol Sulfate 4 puff 03/29/21 01:50 Albuterol Sulfate 90 Mcg 8 Gm Inhaler INHALE RQ4H PRN short of breath, wheezing Albuterol Sulfate 2.5 mg 04/02/21 10:49 Albuterol Sulfate (0.083%) 2.5 Mg/3 Ml Vial.Neb INHALE TID PRN wheezing/sob Amlodipine Besylate 5 mg 04/02/21 09:00 04/07/21 08:11 Amlodipine Besylate 5 Mg Tablet PO 5 mg DAILY YAYA Administration Protocol Atorvastatin Calcium 40 mg 04/01/21 21:00 04/07/21 20:10 Atorvastatin Calcium 40 Mg Tablet PO 40 mg BEDTIME YAYA Administration Dicyclomine HCl 10 mg 03/29/21 01:50 04/01/21 08:34 Dicyclomine Hcl 10 Mg Capsule PO 10 mg TID PRN Administration GI pain Divalproex Sodium 500 mg 03/29/21 15:00 04/07/21 20:10 Divalproex Sodium 500 Mg Tablet. PO 500 mg BID YAYA Administration Finasteride 5 mg 04/01/21 14:10 04/07/21 08:14 Finasteride 5 Mg Tablet PO 5 mg DAILY YAYA Administration Levothyroxine Sodium 200 mcg 04/02/21 06:00 04/07/21 06:28 Levothyroxine Sodium 200 Mcg Tablet PO 200 mcg DAILY@0600 YAYA Administration Lorazepam 1 mg 04/07/21 17:11 Lorazepam 1 Mg Tablet PO Q4H PRN anxiety/restlessness Magnesium Hydroxide 30 ml 03/29/21 01:50 04/01/21 08:34 Milk Of Magnesia 30 Ml Oral.Susp PO 30 ml DAILY PRN Administration Constipation Olanzapine 10 mg 04/04/21 08:24 04/06/21 14:40 Olanzapine Odt 10 Mg Tab.Rapdis TRANSLINGU 10 mg Q6H PRN Administration agitation Omeprazole 20 mg 04/02/21 08:00 04/07/21 08:13 Omeprazole 20 Mg Capsule. PO 20 mg DAILY@0800 YAYA Administration Polyethylene Glycol 17 gm 04/04/21 13:55 04/07/21 08:13 Polyethylene Glycol 3350 17 Gm Powd.Pack PO 17 gm DAILY YAYA Administration Risperidone 2 mg 04/01/21 21:00 04/07/21 20:10 Risperidone 2 Mg Tablet PO 2 mg BEDTIME YAYA Administration Risperidone 1 mg 04/04/21 08:25 04/07/21 08:13 Risperidone 1 Mg Tablet PO 1 mg DAILY YAYA Administration Simethicone 80 mg 04/01/21 18:13 04/01/21 18:40 Simethicone 80 Mg Tab.Chew PO 80 mg QIDWMHS PRN Administration GI Upset Tamsulosin HCl 0.4 mg 04/01/21 14:10 04/07/21 08:13 Tamsulosin Hcl 0.4 Mg Capsule PO 0.4 mg DAILY YAYA Administration Trazodone HCl 100 mg 03/29/21 21:00 04/07/21 20:10 Trazodone Hcl 100 Mg Tablet PO 100 mg BEDTIME YAYA Administration Allergies Allergies Allergy/AdvReac Type Severity Reaction Status Date / Time lisinopril [LISINOPRIL] Allergy Intermediate RASH Verified 02/06/21 14:59 Assessment & Plan Assessment & Plan (1) Bipolar affective, manic, severe w/ psych: Status: Acute Code(s): F31.2 - Bipolar disorder, current episode manic severe with psychotic features Assessment and Plan: Patient calmer less agitated more focused and organized. Continue Depakote risp (2) COPD (chronic obstructive pulmonary disease): Qualifiers: COPD type: unspecified COPD Qualified Code(s): J44.9 - Chronic obstructive pulmonary disease, unspecified Status: Acute Code(s): J44.9 - Chronic obstructive pulmonary disease, unspecified Assessment and Plan: continue albuterol nebulizer PRN and inhaler (3) Benign essential hypertension: Status: Acute Code(s): I10 - Essential (primary) hypertension Assessment and Plan: - amlodipine increase to 5mg po daily due to persistent hypertension. (4) Diabetes mellitus: Qualifiers: Diabetes mellitus type: type 2 Diabetes mellitus care home insulin use: without care home use Diabetes mellitus complication status: without complication Qualified Code(s): E11.9 - Type 2 diabetes mellitus without complications Status: Acute Code(s): E11.9 - Type 2 diabetes mellitus without complications Assessment and Plan: A1C less than 6% (5) CAD (coronary artery disease): Qualifiers: Coronary Disease-Associated Artery/Lesion type: [place] artery [place] vs. transplanted heart: [place] heart Associated angina: without angina Qualified Code(s): I25.10 - Atherosclerotic heart disease of [place] coronary artery without angina pectoris Status: Acute Code(s): I25.10 - Atherosclerotic heart disease of [place] coronary artery without angina pectoris Assessment and Plan: continue atorvastatin (6) Constipation: Qualifiers: Constipation type: unspecified constipation type Qualified Code(s): K59.00 - Constipation, unspecified Status: Acute Code(s): K59.00 - Constipation, unspecified (7) GERD (gastroesophageal reflux disease): Qualifiers: Esophagitis presence: without esophagitis Qualified Code(s): K21.9 - Gastro-esophageal reflux disease without esophagitis Status: Acute Code(s): K21.9 - Gastro-esophageal reflux disease without esophagitis (8) Abdominal pain, chronic, right lower quadrant: Status: Acute Code(s): R10.31 - Right lower quadrant pain; G89.29 - Other chronic pain (9) Pure hypercholesterolemia: Status: Acute Code(s): E78.00 - Pure hypercholesterolemia, unspecified Greater than 50% of the session was spent on counseling and/or coordination of care Reason for contiued inpatient stay Substantial Risk for: rapid decompensation
[2021-04-08] MEDS: LORazepam 1 MG TABLET PO ×2 (00:31→11:55)
--- NOTE | 2021-04-08 00:40 | PC.NURSE ---
Three day noticed signed on Day Shift with JOSÉ MIGUEL [place]. Up on Saturday, April 10, 2021.
[2021-04-08] MEDS: Levothyroxine Sodium 200 MCG TABLET PO (05:39)
[2021-04-08 07:54] LABS: Free T4 (Free Thyroxine) 1.15 ng/dL (0.71-1.85)
[2021-04-08 07:55] LABS: Thyroid Stimulating Hormone 10.94 uIU/mL (0.32-4.0)
[2021-04-08] MEDS: amLODIPine Besylate 5 MG TABLET PO (10:27)
[2021-04-08] MEDS: Omeprazole 20 MG CAPSULE.DR PO (10:27)
[2021-04-08] MEDS: risperiDONE 1 MG TABLET PO (10:27)
[2021-04-08] MEDS: Divalproex Sodium 500 MG TABLET.DR PO ×2 (10:27→20:33)
[2021-04-08] MEDS: Finasteride 5 MG TABLET PO (10:27)
[2021-04-08] MEDS: Tamsulosin HCL 0.4 MG CAPSULE PO (10:27)
--- NOTE | 2021-04-08 11:21 | HO.PSYCHPN ---
Subjective Subjective Date of Service: 04/08/21 Reason For Visit: Susy and psychosis Interim History: Pt calmer and more pleasant today. He reports his plan is to be nice to everyone. He continues to report that he is a God. He continues to report that he hears the Lord. He is less agitated but demands to leave and had brief period of agitation needing PRN. He is sleeping and eating well. He takes medications as prescribed. Review of Systems Review of Systems Unremarkable Constitutional: Reports as per HPI Eyes: Reports as per HPI Reports as per HPI Cardiovascular: Reports as per HPI, Denies chest pain, Denies lightheadedness and Denies dyspnea Respiratory: Reports as per HPI and Denies dyspnea Gastrointestinal: Reports as per HPI, Denies constipation and Denies diarrhea Genitourinary: Reports as per HPI Musculoskeletal: Reports as per HPI Skin/Breast: Reports as per HPI Reports as per HPI and Reports tremor(s) Psychiatric: Reports abnormal sleep pattern, Reports anxiety, Reports irritability and Reports paranoia Mental Status Exam Mental Status Exam Narrative: Appearance: casually groomed, fair hygiene, in NAD Behavior: irritable, agitated Psychomotor: significant agitation Speech: clear, pressured rate/rhythm/load volume, spontaneous, hyperverbal TP: tangential, derailment at times TC: oriental orthodox and grandiose delusions Mood: fine Affect:labile SI:denies HI:denies AH/VH:AH of God Delusions:oriental orthodox and grandiose delusions, thinks he is God, millionaire Insight/judgment:impaired x 2 Memory/cog: alert, impaired secondary to psychiatric symptoms. Diagnostics Vital Signs (24Hr): Body Mass Index 29.5 Labs Results: 03/28/21 13:53 04/01/21 14:48 Labs: Laboratory Results - last 48 hr 04/08/21 04/08/21 06:43 06:43 TSH 10.94 H Free T4 1.15 Imaging Radiology Impressions: ITS Impressions Chest X-Ray 03/28/21 13:28 IMPRESSION: Unremarkable chest exam. Head CT 03/28/21 13:33 IMPRESSION: No acute intracranial process seen. Medications Medications Current Medications Generic Name Dose Route Start Last Admin Trade Name Freq PRN Reason Stop Dose Admin Acetaminophen 650 mg 03/29/21 01:50 04/05/21 00:09 Acetaminophen 325 Mg Tablet PO 650 mg Q6H PRN Administration Headache/Pain Mild Scale (1-3) Al Hydroxide/Mg Hydroxide 30 ml 03/29/21 01:50 04/05/21 21:46 Magnesium Hydrox/Alum Hydrox 30 Ml Oral.Susp PO 30 ml Q6H PRN Administration Heartburn/Nausea Albuterol Sulfate 4 puff 03/29/21 01:50 Albuterol Sulfate 90 Mcg 8 Gm Inhaler INHALE RQ4H PRN short of breath, wheezing Albuterol Sulfate 2.5 mg 04/02/21 10:49 Albuterol Sulfate (0.083%) 2.5 Mg/3 Ml Vial.Neb INHALE TID PRN wheezing/sob Amlodipine Besylate 5 mg 04/02/21 09:00 04/08/21 10:27 Amlodipine Besylate 5 Mg Tablet PO 5 mg DAILY YAYA Administration Protocol Atorvastatin Calcium 40 mg 04/01/21 21:00 04/07/21 20:10 Atorvastatin Calcium 40 Mg Tablet PO 40 mg BEDTIME YAYA Administration Dicyclomine HCl 10 mg 03/29/21 01:50 04/01/21 08:34 Dicyclomine Hcl 10 Mg Capsule PO 10 mg TID PRN Administration GI pain Divalproex Sodium 500 mg 03/29/21 15:00 04/08/21 10:27 Divalproex Sodium 500 Mg Tablet. PO 500 mg BID YAYA Administration Finasteride 5 mg 04/01/21 14:10 04/08/21 10:27 Finasteride 5 Mg Tablet PO 5 mg DAILY YAYA Administration Levothyroxine Sodium 200 mcg 04/02/21 06:00 04/08/21 05:39 Levothyroxine Sodium 200 Mcg Tablet PO 200 mcg DAILY@0600 YAYA Administration Lorazepam 1 mg 04/07/21 17:11 04/08/21 00:31 Lorazepam 1 Mg Tablet PO 1 mg Q4H PRN Administration anxiety/restlessness Magnesium Hydroxide 30 ml 03/29/21 01:50 04/01/21 08:34 Milk Of Magnesia 30 Ml Oral.Susp PO 30 ml DAILY PRN Administration Constipation Olanzapine 10 mg 04/04/21 08:24 04/06/21 14:40 Olanzapine Odt 10 Mg Tab.Rapdis TRANSLINGU 10 mg Q6H PRN Administration agitation Omeprazole 20 mg 04/02/21 08:00 04/08/21 10:27 Omeprazole 20 Mg Capsule. PO 20 mg DAILY@0800 YAYA Administration Polyethylene Glycol 17 gm 04/04/21 13:55 04/08/21 10:30 Polyethylene Glycol 3350 17 Gm Powd.Pack PO Not Given DAILY YAYA Risperidone 2 mg 04/01/21 21:00 04/07/21 20:10 Risperidone 2 Mg Tablet PO 2 mg BEDTIME YAYA Administration Risperidone 1 mg 04/04/21 08:25 04/08/21 10:27 Risperidone 1 Mg Tablet PO 1 mg DAILY YAYA Administration Simethicone 80 mg 04/01/21 18:13 04/01/21 18:40 Simethicone 80 Mg Tab.Chew PO 80 mg QIDWMHS PRN Administration GI Upset Tamsulosin HCl 0.4 mg 04/01/21 14:10 04/08/21 10:27 Tamsulosin Hcl 0.4 Mg Capsule PO 0.4 mg DAILY YAYA Administration Trazodone HCl 100 mg 03/29/21 21:00 04/07/21 20:10 Trazodone Hcl 100 Mg Tablet PO 100 mg BEDTIME YAYA Administration Allergies Allergies Allergy/AdvReac Type Severity Reaction Status Date / Time lisinopril [LISINOPRIL] Allergy Intermediate RASH Verified 02/06/21 14:59 Assessment & Plan Assessment & Plan (1) Bipolar affective, manic, severe w/ psych: Status: Acute Code(s): F31.2 - Bipolar disorder, current episode manic severe with psychotic features Assessment and Plan: Patient calmer less agitated more focused and organized. Continue Depakote risp (2) COPD (chronic obstructive pulmonary disease): Qualifiers: COPD type: unspecified COPD Qualified Code(s): J44.9 - Chronic obstructive pulmonary disease, unspecified Status: Acute Code(s): J44.9 - Chronic obstructive pulmonary disease, unspecified Assessment and Plan: continue albuterol nebulizer PRN and inhaler (3) Benign essential hypertension: Status: Acute Code(s): I10 - Essential (primary) hypertension Assessment and Plan: - amlodipine increase to 5mg po daily due to persistent hypertension. (4) Diabetes mellitus: Qualifiers: Diabetes mellitus type: type 2 Diabetes mellitus residential insulin use: without residential use Diabetes mellitus complication status: without complication Qualified Code(s): E11.9 - Type 2 diabetes mellitus without complications Status: Acute Code(s): E11.9 - Type 2 diabetes mellitus without complications Assessment and Plan: A1C less than 6% (5) CAD (coronary artery disease): Qualifiers: Coronary Disease-Associated Artery/Lesion type: [place] artery [place] vs. transplanted heart: [place] heart Associated angina: without angina Qualified Code(s): I25.10 - Atherosclerotic heart disease of [place] coronary artery without angina pectoris Status: Acute Code(s): I25.10 - Atherosclerotic heart disease of [place] coronary artery without angina pectoris Assessment and Plan: continue atorvastatin (6) Constipation: Qualifiers: Constipation type: unspecified constipation type Qualified Code(s): K59.00 - Constipation, unspecified Status: Acute Code(s): K59.00 - Constipation, unspecified (7) GERD (gastroesophageal reflux disease): Qualifiers: Esophagitis presence: without esophagitis Qualified Code(s): K21.9 - Gastro-esophageal reflux disease without esophagitis Status: Acute Code(s): K21.9 - Gastro-esophageal reflux disease without esophagitis (8) Abdominal pain, chronic, right lower quadrant: Status: Acute Code(s): R10.31 - Right lower quadrant pain; G89.29 - Other chronic pain (9) Pure hypercholesterolemia: Status: Acute Code(s): E78.00 - Pure hypercholesterolemia, unspecified Greater than 50% of the session was spent on counseling and/or coordination of care Reason for contiued inpatient stay Substantial Risk for: inability to function
[2021-04-08] MEDS: OLANZapine ODT 10 MG TAB.RAPDIS TRANSLINGU (11:55)
[2021-04-08 18:00] VITALS: BP 157/74; PULSE 101; RESP 18; TEMP 36.8; O2SAT 98
[2021-04-08] MEDS: Atorvastatin Calcium 40 MG TABLET PO (20:33)
[2021-04-08] MEDS: risperiDONE 2 MG TABLET PO (20:33)
[2021-04-08] MEDS: traZODone HCL 100 MG TABLET PO (20:33)
[2021-04-09 06:00] VITALS: BP 142/65; PULSE 56; RESP 18; TEMP 36.3; O2SAT 97
[2021-04-09] MEDS: Omeprazole 20 MG CAPSULE.DR PO (06:47)
[2021-04-09] MEDS: Levothyroxine Sodium 200 MCG TABLET PO (06:47)
[2021-04-09 08:57] VITALS: BP 143/66; PULSE 59; RESP 18; TEMP 37.2; O2SAT 99
[2021-04-09] MEDS: Tamsulosin HCL 0.4 MG CAPSULE PO (09:01)
[2021-04-09 09:02] VITALS: BP 143/66; PULSE 59
[2021-04-09] MEDS: amLODIPine Besylate 5 MG TABLET PO (09:02)
[2021-04-09] MEDS: Divalproex Sodium 500 MG TABLET.DR PO ×2 (09:02→20:33)
[2021-04-09] MEDS: risperiDONE 1 MG TABLET PO (09:02)
[2021-04-09] MEDS: Finasteride 5 MG TABLET PO (09:02)
[2021-04-09] MEDS: polyethylene glycoL 3350 17 GM POWD.PACK PO (09:59)
[2021-04-09 12:05] VITALS: TEMP 37.2
--- NOTE | 2021-04-09 15:01 | HO.PSYCHPN ---
Subjective Subjective Date of Service: 04/09/21 Reason For Visit: Susy and psychosis Interim History: Pt has been more visible in the unit. He spent most of the day in day room. He reports hearing less voices of God. He does continue to have some residual delusional believes such as thinking that he is a God. He is much calmer and pleasant. No behavioral concerns. Review of Systems Review of Systems Unremarkable Constitutional: Reports as per HPI Eyes: Reports as per HPI Reports as per HPI Cardiovascular: Reports as per HPI, Denies chest pain, Denies lightheadedness and Denies dyspnea Respiratory: Reports as per HPI and Denies dyspnea Gastrointestinal: Reports as per HPI, Denies constipation and Denies diarrhea Genitourinary: Reports as per HPI Musculoskeletal: Reports as per HPI Skin/Breast: Reports as per HPI Reports as per HPI and Reports tremor(s) Psychiatric: Reports abnormal sleep pattern, Reports anxiety, Reports irritability and Reports paranoia Mental Status Exam Mental Status Exam Narrative: Appearance: casually groomed, fair hygiene, in NAD Behavior: calm, cooperative Psychomotor: no agitation or retardation noted Speech: clear, regular rate/rhythm/load volume, spontaneous TP: tangential, derailment at times TC: tenriism and grandiose delusions Mood: fine Affect:congruent, less labile SI:denies HI:denies AH/VH:less AH of God Delusions:less tenriism and grandiose delusions, thinks he is God, millionaire Insight/judgment:improving x 2. Memory/cog: alert, impaired secondary to psychiatric symptoms. Diagnostics Vital Signs (24Hr): Vital Signs - 24 hr 04/08/21 18:00 04/09/21 06:00 04/09/21 08:57 Temperature 98.2 F 97.4 F 99.0 F Pulse Rate 101 H 56 59 Respiratory Rate 18 18 18 Blood Pressure 157/74 H 142/65 H 143/66 H Pulse Oximetry 98 97 99 04/09/21 09:02 04/09/21 12:05 Temperature 98.9 F Pulse Rate 59 Respiratory Rate Blood Pressure 143/66 H Pulse Oximetry Body Mass Index 29.5 Labs Results: 03/28/21 13:53 04/01/21 14:48 Labs: Laboratory Results - last 48 hr 04/08/21 04/08/21 06:43 06:43 TSH 10.94 H Free T4 1.15 Imaging Radiology Impressions: ITS Impressions Chest X-Ray 03/28/21 13:28 IMPRESSION: Unremarkable chest exam. Head CT 03/28/21 13:33 IMPRESSION: No acute intracranial process seen. Medications Medications Current Medications Generic Name Dose Route Start Last Admin Trade Name Freq PRN Reason Stop Dose Admin Acetaminophen 650 mg 03/29/21 01:50 04/05/21 00:09 Acetaminophen 325 Mg Tablet PO 650 mg Q6H PRN Administration Headache/Pain Mild Scale (1-3) Al Hydroxide/Mg Hydroxide 30 ml 03/29/21 01:50 04/05/21 21:46 Magnesium Hydrox/Alum Hydrox 30 Ml Oral.Susp PO 30 ml Q6H PRN Administration Heartburn/Nausea Albuterol Sulfate 4 puff 03/29/21 01:50 Albuterol Sulfate 90 Mcg 8 Gm Inhaler INHALE RQ4H PRN short of breath, wheezing Albuterol Sulfate 2.5 mg 04/02/21 10:49 Albuterol Sulfate (0.083%) 2.5 Mg/3 Ml Vial.Neb INHALE TID PRN wheezing/sob Amlodipine Besylate 5 mg 04/02/21 09:00 04/09/21 09:02 Amlodipine Besylate 5 Mg Tablet PO 5 mg DAILY YAYA Administration Protocol Atorvastatin Calcium 40 mg 04/01/21 21:00 04/08/21 20:33 Atorvastatin Calcium 40 Mg Tablet PO 40 mg BEDTIME YAYA Administration Dicyclomine HCl 10 mg 03/29/21 01:50 04/01/21 08:34 Dicyclomine Hcl 10 Mg Capsule PO 10 mg TID PRN Administration GI pain Divalproex Sodium 500 mg 03/29/21 15:00 04/09/21 09:02 Divalproex Sodium 500 Mg Tablet.Dr PO 500 mg BID YAYA Administration Finasteride 5 mg 04/01/21 14:10 04/09/21 09:02 Finasteride 5 Mg Tablet PO 5 mg DAILY YAYA Administration Levothyroxine Sodium 200 mcg 04/02/21 06:00 04/09/21 06:47 Levothyroxine Sodium 200 Mcg Tablet PO 200 mcg DAILY@0600 YAYA Administration Lorazepam 1 mg 04/07/21 17:11 04/08/21 11:55 Lorazepam 1 Mg Tablet PO 1 mg Q4H PRN Administration anxiety/restlessness Magnesium Hydroxide 30 ml 03/29/21 01:50 04/01/21 08:34 Milk Of Magnesia 30 Ml Oral.Susp PO 30 ml DAILY PRN Administration Constipation Olanzapine 10 mg 04/04/21 08:24 04/08/21 11:55 Olanzapine Odt 10 Mg Tab.Rapdis TRANSLINGU 10 mg Q6H PRN Administration agitation Omeprazole 20 mg 04/02/21 08:00 04/09/21 06:47 Omeprazole 20 Mg Capsule.Dr PO 20 mg DAILY@0800 YAYA Administration Polyethylene Glycol 17 gm 04/04/21 13:55 04/09/21 09:59 Polyethylene Glycol 3350 17 Gm Powd.Pack PO 17 gm DAILY YAYA Administration Risperidone 2 mg 04/01/21 21:00 04/08/21 20:33 Risperidone 2 Mg Tablet PO 2 mg BEDTIME YAYA Administration Risperidone 1 mg 04/04/21 08:25 04/09/21 09:02 Risperidone 1 Mg Tablet PO 1 mg DAILY YAYA Administration Simethicone 80 mg 04/01/21 18:13 04/01/21 18:40 Simethicone 80 Mg Tab.Chew PO 80 mg QIDWMHS PRN Administration GI Upset Tamsulosin HCl 0.4 mg 04/01/21 14:10 04/09/21 09:01 Tamsulosin Hcl 0.4 Mg Capsule PO 0.4 mg DAILY YAYA Administration Trazodone HCl 100 mg 03/29/21 21:00 04/08/21 20:33 Trazodone Hcl 100 Mg Tablet PO 100 mg BEDTIME YAYA Administration Allergies Allergies Allergy/AdvReac Type Severity Reaction Status Date / Time lisinopril [LISINOPRIL] Allergy Intermediate RASH Verified 02/06/21 14:59 Assessment & Plan Assessment & Plan (1) Bipolar affective, manic, severe w/ psych: Status: Acute Code(s): F31.2 - Bipolar disorder, current episode manic severe with psychotic features Assessment and Plan: Patient calmer less agitated more focused and organized. Continue Depakote risp (2) COPD (chronic obstructive pulmonary disease): Qualifiers: COPD type: unspecified COPD Qualified Code(s): J44.9 - Chronic obstructive pulmonary disease, unspecified Status: Acute Code(s): J44.9 - Chronic obstructive pulmonary disease, unspecified Assessment and Plan: continue albuterol nebulizer PRN and inhaler (3) Benign essential hypertension: Status: Acute Code(s): I10 - Essential (primary) hypertension Assessment and Plan: - amlodipine increase to 5mg po daily due to persistent hypertension. (4) Diabetes mellitus: Qualifiers: Diabetes mellitus type: type 2 Diabetes mellitus terminal make up operator insulin use: without terminal make up operator use Diabetes mellitus complication status: without complication Qualified Code(s): E11.9 - Type 2 diabetes mellitus without complications Status: Acute Code(s): E11.9 - Type 2 diabetes mellitus without complications Assessment and Plan: A1C less than 6% (5) CAD (coronary artery disease): Qualifiers: Coronary Disease-Associated Artery/Lesion type: [place] artery [place] vs. transplanted heart: [place] heart Associated angina: without angina Qualified Code(s): I25.10 - Atherosclerotic heart disease of [place] coronary artery without angina pectoris Status: Acute Code(s): I25.10 - Atherosclerotic heart disease of [place] coronary artery without angina pectoris Assessment and Plan: continue atorvastatin (6) Constipation: Qualifiers: Constipation type: unspecified constipation type Qualified Code(s): K59.00 - Constipation, unspecified Status: Acute Code(s): K59.00 - Constipation, unspecified (7) GERD (gastroesophageal reflux disease): Qualifiers: Esophagitis presence: without esophagitis Qualified Code(s): K21.9 - Gastro-esophageal reflux disease without esophagitis Status: Acute Code(s): K21.9 - Gastro-esophageal reflux disease without esophagitis (8) Abdominal pain, chronic, right lower quadrant: Status: Acute Code(s): R10.31 - Right lower quadrant pain; G89.29 - Other chronic pain (9) Pure hypercholesterolemia: Status: Acute Code(s): E78.00 - Pure hypercholesterolemia, unspecified Greater than 50% of the session was spent on counseling and/or coordination of care Reason for contiued inpatient stay Substantial Risk for: stable for discharge
[2021-04-09] MEDS: LORazepam 1 MG TABLET PO ×2 (16:12→20:33)
[2021-04-09 18:07] VITALS: BP 124/62; PULSE 59; RESP 18; TEMP 36.8; O2SAT 99
[2021-04-09] MEDS: Atorvastatin Calcium 40 MG TABLET PO (20:33)
[2021-04-09] MEDS: risperiDONE 2 MG TABLET PO (20:33)
[2021-04-09] MEDS: traZODone HCL 100 MG TABLET PO (20:33)
--- NOTE | 2021-04-10 09:50 | PM.PSYDC ---
DS: Providers Provider Date of Service: 04/10/21 Date of admission: 03/29/21 00:48 Primary care physician: Samuel Schneider MD DS: Diagnosis Discharge Diagnosis (1) Bipolar affective, manic, severe w/ psych: Status: Acute (2) COPD (chronic obstructive pulmonary disease): Status: Acute (3) Benign essential hypertension: Status: Acute (4) Diabetes mellitus: Status: Acute (5) CAD (coronary artery disease): Status: Acute (6) Constipation: Status: Acute (7) GERD (gastroesophageal reflux disease): Status: Acute (8) Abdominal pain, chronic, right lower quadrant: Status: Acute (9) Pure hypercholesterolemia: Status: Acute DS: Medications Discharge Medications Home Medications: Home Medications Medication Instructions Recorded Confirmed fluticasone propionate 50 1 spray INTRANASAL DAILY 08/13/20 03/29/21 mcg/actuation nasal spray,suspension albuterol sulfate 2.5 mg CONTINUOUS NEBULIZATION .3 11/06/20 02/06/21 TIMES A DAY PRN ml losartan 0.5 tab PO DAILY 03/29/21 03/29/21 Previous Rx's Medication Instructions Recorded omeprazole 20 mg capsule,delayed 20 mg PO DAILY #30 cap 10/13/20 release tamsulosin 0.4 mg capsule 0.4 mg PO DAILY #90 cap 11/11/20 albuterol sulfate 90 mcg/actuation 2 puff INHALATION .4 TIMES A DAY 01/08/21 aerosol inhaler PRN #8.5 g atorvastatin 40 mg tablet 40 mg PO DAILY #90 tab 01/22/21 finasteride 5 mg tablet 5 mg PO DAILY 30 Days #30 tab 02/04/21 tramadol 50 mg tablet 50 mg PO TID PRN 15 Days #45 tab 03/04/21 dicyclomine 20 mg tablet 20 mg PO TID PRN #90 tab 03/25/21 levothyroxine 200 mcg tablet 200 mcg PO QAM #30 tab 03/25/21 amlodipine 5 mg PO DAILY #30 tab 04/10/21 divalproex 500 mg PO BID #60 tab 04/10/21 polyethylene glycol 3350 17 g PO DAILY PRN #30 ea 04/10/21 risperidone 1 mg PO DAILY #30 tab 04/10/21 risperidone 2 mg PO BEDTIME #30 tab 04/10/21 trazodone 100 mg PO BEDTIME #30 tab 04/10/21 Discharge Plan Discharge Patient Disposition: Home, Self-Care Discharge Diagnosis: Bipolar type 1 Disorder Referrals: Aimee Waters (therapist) [Other] - 04/11/21 2:15 pm (Telehealth appointment) Dr. Bolden (psychiatrist) [Other] - 05/02/21 1:00 pm (Telehealth appointment) Sunil Case Visiting RN [Other] - 04/11/21 (FAX- [phone] The Service will begin on 04/11/21 the agency will reach out to arrange a time for visit. Ct and his mother would both like to learn more about how to set up the medication to increase the Ct's investment in the process. ) Samuel Schneider MD [Primary Care Provider] - 1 Week Discharge Medications: New polyethylene glycol 3350 17 gram Powder In Packet 17 g PO DAILY PRN (Reason: constipation) Qty: 30 RF: 0 amlodipine 5 mg Tablet 5 mg PO DAILY Qty: 30 RF: 0 divalproex 500 mg Tablet,Delayed Release (Dr/Ec) 500 mg PO BID Qty: 60 RF: 0 risperidone 2 mg Tablet 2 mg PO BEDTIME Qty: 30 RF: 0 trazodone 100 mg Tablet 100 mg PO BEDTIME Qty: 30 RF: 0 risperidone 1 mg Tablet 1 mg PO DAILY Qty: 30 RF: 0 Continued omeprazole 20 mg capsule,delayed release(DR/EC) 20 mg PO DAILY Qty: 30 RF: 3 tamsulosin 0.4 mg capsule 0.4 mg PO DAILY Qty: 90 RF: 0 albuterol sulfate [ProAir HFA] 90 mcg/actuation HFA aerosol inhaler 2 puff inhalation .4 TIMES A DAY PRN (Reason: bronchospasm) Qty: 8.5 RF: 0 atorvastatin 40 mg tablet 40 mg PO DAILY Qty: 90 RF: 1 finasteride 5 mg tablet 5 mg PO DAILY 30 Days Qty: 30 RF: 2 tramadol 50 mg tablet 50 mg PO TID PRN (Reason: pain) 15 Days Qty: 45 RF: 0 dicyclomine 20 mg tablet 20 mg PO TID PRN (Reason: for pain) Qty: 90 RF: 0 losartan 50 mg tablet 0.5 tab PO DAILY RF: 0 fluticasone propionate 50 mcg/actuation spray,suspension 1 spray intranasal DAILY RF: 0 albuterol sulfate 2.5 mg /3 mL (0.083 %) solution for nebulization 2.5 mg continuous nebulization .3 TIMES A DAY PRN (Reason: Shortness Of Breath) RF: 0 Discontinued acetaminophen 325 mg tablet 325 mg PO QID PRN (Reason: pain) Qty: 120 RF: 4 amlodipine 2.5 mg tablet 2.5 mg PO DAILY 90 Days Qty: 90 RF: 1 escitalopram oxalate 10 mg tablet 10 mg PO DAILY 30 Days Qty: 30 RF: 2 trazodone 100 mg tablet 100 mg PO BEDTIME PRN (Reason: Sleep) RF: 0 lorazepam 1 mg tablet 1 mg PO BID PRN (Reason: Anxiety) RF: 0 olanzapine 10 mg tablet 10 mg PO BEDTIME RF: 0 No Action levothyroxine 200 mcg tablet 200 mcg PO QAM Qty: 30 RF: 0 Discharge Orders: Discharge Order (Routine); Ordered 04/10/21 Ordered By: Malaika Corona Diet: regular diet Activity on Discharge: As tolerated Stand Alone Forms: Patient Portal Discharge page Care Plan Goals: Maintain stable mood: decrease labile mood No SI/HI Health Concerns: Follow up with PCP Plan of Treatment: 1. Take medications as prescribed. 2. Go to nearest ED or call 911 in event of emergency. Assessment: Less labile, less pentecostalism delusions, improved sleep. NO SI/HI. No aggression towards self or others. Discharge Date/Time: 04/10/21 17:00 Mental Status Exam Mental Status Exam Narrative: Appearance: casually groomed, fair hygiene, in NAD Behavior: calm, cooperative Psychomotor: no agitation or retardation noted Speech: clear, regular rate/rhythm/load volume, spontaneous TP: tangential, derailment at times TC: pentecostalism and grandiose delusions Mood: fine Affect:congruent, less labile SI:denies HI:denies AH/VH:less AH of God Delusions:less pentecostalism and grandiose delusions, thinks he is God, millionaire Insight/judgment:improving x 2. Memory/cog: alert, impaired secondary to psychiatric symptoms. Data Data Completed and Pending Completed studies during hospitalization [Text1]: 04/08/21 04/08/21 06:43 06:43 TSH 10.94 H Free T4 1.15 Imaging Diagnostic Imaging Impressions Chest X-Ray 03/28/21 13:28 IMPRESSION: Unremarkable chest exam. Head CT 03/28/21 13:33 IMPRESSION: No acute intracranial process seen. DS: Summary Hospital Course Hospital Course: Mr. Lugo is a 70 year-old male with hx of BIpolar versus Schizoaffective Disorder who was brought to [facility] ED by his mother due to pt presenting as increasingly more agitated, religiously preoccupied stating that he is God and has killed the devil, not able to care for himself, not paying bills because he thinks he is God not taking medications for medical or psychiatric condition as he does not think he has anything to treat. In the ED, his utox is negative. On the unit, pt initially somewhat pleasant but guarded and irritable. He reports he is God, he killed the devil, he is moving to a mansion and is getting (to a GF that does not exist). He reports he does not need any medical or psychiatric treatment. He denied SI/HI. He reports eating and sleeping well but unclear if these reports are accurate. He tells this mortgage underwriter he is leaving today. He believes that several relatives who have long time ago have resurrected thanks to his de souza. He is telling staff about their fate. He reports hearing voices (sometimes of devil). He later demanded to leave and became combative, requiring PO medications for agitation including Ativan 2 mg and Olanzapine 5mg. He briefly calmed down, and again became agitated, demanding to leave. Telling people that he was hearing voices from Father God. He presents as very irritable, threatening to hurt staff if not discharged. He did agree to take Depakote 500mg po, fluphenazine 5mg po and ativan 2mg po. Past Psychiatric History: Inpatient: total of 2 admissions. This is his 3rd one. OP: [facility] with Dr. Marvin Suicide attempts: none Past trials: olanzapine, citalopram Medical Evaluation Reviewed: Yes PERTINENT LABS: CBC with dif wnl; CMP- increase BUN, Cr 1.30; GFR 54, E Creatine Clearance 58; liver panel wnl; HOSPITAL COURSE On the unit, Mr. Lugo initially presented as very agitated, labile demanding to leave unit. He tried several times to elope unit in first two days requiring support and significant redirection from staff. He received several PRN medications for agitation and combativeness. He presented as floridly psychotic reporting he was one of the God's, that he was a millionare, and about to get . He denied having any medical or psychiatric conditions, therefore refusing to take medications. After discussing risks, benefits and alternative treatment options. He agreed to try risperidone. He has been mostly on Olanzapine for years but reported feeling sedated during the day, having constipation and dizziness. Coordination of care completed with his OP psychiatrists, Dr. Marvin, who reported that pt had been on haldol in past but had EPS. Pt was also started on depakote for labile mood. His affect gradually presented as much less labile and less grandiose. He was sleeping better. He reported less delusional Content related to him being God. He noted that he had both medical and psychiatric conditions that needed to be treated. He denies SI/HI. He agreed to return home with supports from [facility]. Status at Discharge Cognitive/behavioral status at discharge: Much less labile, no grandiose delusions. No SI/HI. No aggression towards self or others. Some residual religiosity. Functional status at discharge: uses cane/walker Overall status at discharge: patient is progressing back to baseline Time Spent with Patient Time attestation: Total time spent providing and/or coordinating discharge services: Time spent: Greater than 30 minutes
[2021-04-10] MEDS: Divalproex Sodium 500 MG TABLET.DR PO (10:05)
[2021-04-10 10:06] VITALS: BP 143/66; PULSE 66
[2021-04-10] MEDS: Tamsulosin HCL 0.4 MG CAPSULE PO (10:06)
[2021-04-10] MEDS: risperiDONE 1 MG TABLET PO (10:06)
[2021-04-10] MEDS: Finasteride 5 MG TABLET PO (10:06)
[2021-04-10] MEDS: amLODIPine Besylate 5 MG TABLET PO (10:06)
[2021-04-10] MEDS: Omeprazole 20 MG CAPSULE.DR PO (10:06)
[2021-04-10] MEDS: polyethylene glycoL 3350 17 GM POWD.PACK PO (10:09)
[2021-04-10] MEDS: LORazepam 1 MG TABLET PO (16:11)
== END 2021-04-10 17:00 | disposition home or self-care (01) | DRG 885 ==
LOC: HO.ED 17:55 → HO.PGERI 03-29 00:56
PROVIDERS: Physician Assistant; Admitting Provider Psychiatry & Neurology Psychiatry; Emergency Provider Emergency Medicine Emergency Medical Services; PCP Internal Medicine; Visit Provider Social Worker
DX: F31.2 Bipolar disorder, current episode manic severe with psychotic features (principal); E03.9 Hypothyroidism, unspecified; F41.9 Anxiety disorder, unspecified; K21.9 Gastro-esophageal reflux disease without esophagitis; I25.10 Atherosclerotic heart disease of native coronary artery without angina pectoris; I44.7 Left bundle-branch block, unspecified; R10.31 Right lower quadrant pain; G89.29 Other chronic pain; E78.5 Hyperlipidemia, unspecified; K59.00 Constipation, unspecified; Z96.652 Presence of left artificial knee joint; Z20.822 Contact with and (suspected) exposure to COVID-19; Z79.51 Long term (current) use of inhaled steroids; Z79.890 Hormone replacement therapy; Z79.891 Long term (current) use of opiate analgesic; Z79.899 Other long term (current) drug therapy
CPT/HCPCS: 36415; 70450; 71046; 80053; 80061; 80076; 80164; 80307; 81001; 82077; 82947; 83036; 83690; 84439; 84443; 85025; 87635; 93005; 97162; 99285; J2060

== ENCOUNTER 2021-04-16 15:42 | Emergency (ER) | payer MEDICARE, MEDICAID, OTHER, SELFPAY | END 2021-04-16 15:45 | disposition left against medical advice (07) | PROVIDERS: Emergency Provider Emergency Medicine; PCP Internal Medicine | DX: R69 Illness, unspecified (principal) ==

== ENCOUNTER 2021-06-04 13:53 | Outpatient (AMB) | payer MEDICARE, MEDICAID, OTHER, SELFPAY ==
[2021-06-04 14:03] VITALS: BP 136/90; PULSE 58; TEMP 36.2; O2SAT 98; BMI 35.3
--- NOTE | 2021-06-04 14:03 | A.OFFPC_ITS ---
Vital Signs 06/04/21 14:03 Height 5 ft 4 in Weight 206 lb BMI 35.3 BP 136/90 H Pulse 58 Pulse Source Pulse Oximeter Temp 97.2 F Pulse Oximetry (%) 98 Oxygen Delivery Method Room Air HPI red eye, closed shut HPI Details Patient comes in today complaining of increased redness and swelling of his right eye for the past 2 days States that his right eye is now swollen shut and he can hardly open his eye due to the pain and swelling States that his left eye is also starting to present with similar symptoms when he woke up this morning Denies any recent injury or trauma to his eye No other acute complaints or symptoms are noted [facility] Medical History (Updated 05/26/23 @ 12:16 by Samuel Schneider MD) Abdominal pain, chronic, right lower quadrant Acquired hypothyroidism Allergic rhinitis Anxiety Benign essential hypertension Benign prostatic hyperplasia with urinary obstruction CAD (coronary artery disease) Constipation COPD (chronic obstructive pulmonary disease) Dementia Diabetes mellitus GERD (gastroesophageal reflux disease) Hypothyroid Insomnia Obesity (BMI 30-39.9) Osteoarthritis Overweight (BMI 25.0-29.9) Pure hypercholesterolemia Vitamin D deficiency Surgical History History of arthroscopic knee surgery History of cardiac catheterization History of colectomy History of esophagogastroduodenoscopy (EGD) History of excision of pilonidal cyst History of eye surgery History of skin graft Hx of colonoscopy Family History Father Stroke CVD (cerebrovascular disease) Mother Hypertension Social History Household Members: None Housing: Apartment Do you presently have visiting nurse or other home services: Yes (Had [facility] ([facility]) and [facility]) Unable to assess alcohol history related to: Refusing to respond Alcohol intake: never Patient Tobacco Use Status: Former Tobacco user Quit Date: long time ago Tobacco use type: Cigarette and Cigar Years Smoked: unknown e-Cigarette/Vaping Use: Never Used Second Hand Smoke Exposure: No service: No Current occupational status: retired Sexual orientation: Straight/Heterosexual Cognitive needs: No Hearing needs: No Vision needs: No Questionnaire PHQ-9 (HOL/HEY) Over the last 2 weeks, how often have you been bothered by any of the following problems? 1. Little interest or pleasure in doing things: not at all 2. Feeling down, depressed, or hopeless: not at all 3. Trouble falling or staying asleep, or sleeping too much: not at all 4. Feeling tired or having little energy: not at all 5. Poor appetite or overeating: not at all 6. Feeling bad about yourself - or that you are a failure or have let yourself or your family down: not at all 7. Trouble concentrating on things, such as reading the newspaper or watching television: not at all 8. Moving or speaking so slowly that other people could have noticed. Or the opposite - being so fidgety or restless that you have been moving around a lot more than usual: not at all 9. Thoughts that you would be better off or of hurting yourself in some way: not at all Total score: 0 Depression Screening Interpretation: Negative 28618 - PHQ-9 Billing: Yes Source: Developed by Drs. Michael Melendez, Christina Lopes, Arturo Witt and colleagues, with an educational amanda from [employer]. Thrive Questionnaire I am a: Patient What is your living situation today?: I have a steady place to live Within the past 12 months, did the food you bought not last and you didn't have the money to get more?: Never true Within the past 12 months, did you worry whether your food would run out before you got money to buy more?: Never true Do you have trouble paying for medicines?: No Do you have trouble getting transportation to medical appointments?: No Do you have trouble paying your heating and electricity bill?: No Do you have trouble taking care of your child, family member or friend?: No Do you have trouble with day-to-day activities such as bathing, preparing meals, shopping, managing finances, etc.?: No Are you currently unemployed and looking for a job?: No Are you interested in more education?: No AUDIT C Alcohol Use Questionnaire (AUDIT-C) 1. How often do you have a drink containing alcohol?: Never 3. How often do you have six or more drinks on one occasion?: Never Total Score: 0 Score Reviewed/Action Taken: Yes MARI-7 AMB Questionnaire MARI-7 Date MARI - 7 assessed: 06/04/21 Feeling nervous, anxious, or on edge: 1 = Several days Not being able to stop or control worryin = Several days Worrying too much about different things: 1 = Several days Trouble relaxin = Several days Being so restless that it is hard to sit still: 1 = Several days Becoming easily annoyed or irritable: 1 = Several days Feeling afraid as if something awful might happen: 1 = Several days Total MARI-7 score (0-4 normal; 5-9 mild; 10-14 moderate; 15-21 severe): 7 Source: Developed by Drs. Michael Melendez, Christina Lopes, Arturo Witt and colleagues, with an educational amanda from [employer]. Review of Systems Const Denies fatigue, Denies fever(s) and Denies headache(s) Eyes Details: (+) pain, redness and swelling of both eyes, worse in the right eye - see HPI ENT Denies dizziness, Denies otalgia, Denies headache(s), Denies odynophagia and Denies sore throat Card Denies chest pain, Denies palpitations and Denies dyspnea Resp Denies cough and Denies dyspnea GI Reports abdominal pain (right-sided - chronic), Denies constipation, Denies hea rtburn, Denies diarrhea, Denies nausea, Denies odynophagia, Denies vomiting and Reports other Neuro Denies dizziness and Denies headache(s) Endo Denies fatigue and Denies palpitations Physical exam (Primary Care) Vital Signs: Last Vital Signs Temp 97.2 F 06/04/21 14:03 Pulse 58 06/04/21 14:03 BP 136/90 H 06/04/21 14:03 Pulse Ox 98 06/04/21 14:03 Oxygen Delivery Method Room Air 06/04/21 14:03 BMI result Body Mass Index 35.3 Tobacco/Smoking Status: Tobacco use Status Tobacco use date assessed 06/04/21 06/04/21 14:09 Patient Tobacco Use Status Former Tobacco user 06/04/21 14:09 Tobacco use type Cigarette,Cigar 06/04/21 14:09 e-Cigarette/Vaping Use Never Used 06/04/21 14:09 PHQ-9: Total score: 0 Depression Screening Interpretation: Negative Const General: no acute distress and alert Eyes Other: (+) redness and some induration noted on the both upper and lower eyelids bilaterally, with symptoms worse in the right eye; (+) mild right conjunctival injection noted Neck Neck: Yes no lymphadenopathy and Yes supple Resp Auscultation: clear to auscultation bilaterally, no rales and no wheezes Cardio Rate: regular rate Rhythm: regular rhythm Heart sounds: no murmurs GI Palpation (GI): Soft to palpation and nontender Auscultation: normal bowel sounds Extrem General: Yes no clubbing, cyanosis or edema Assessment and Plan Assessment & Plan (1) Blepharitis of both eyes: Code(s): H01.003 - Unspecified blepharitis right eye, unspecified eyelid; H01.006 - Unspecified blepharitis left eye, unspecified eyelid (2) Acute conjunctivitis, right eye: Code(s): H10.31 - Unspecified acute conjunctivitis, right eye Plan Will start patient on empiric Abx Tx with oral Augmentin 875 mg BID x 7 days and Polytrim eyedrops 1 drop to each eye Q 3 hours while awake x 7 days Follow up in 3 months Medications: New amoxicillin-pot clavulanate 875-125 mg (Augmentin) 1 tab PO BID 14 tabs 0RF 7 days H01.003 - Unspecified blepharitis right eye, unspecified eyelid, H01.006 - Unspecified blepharitis left eye, unspecified eyelid polymyxin B sulf-trimethoprim 10,000 unit- 1 mg/mL (Polytrim) while awake; do not exceed 6 doses in 24 hours 1 drp ophthalmic (eye) Q3H 10 mL 0RF 7 days H10.31 - Unspecified acute conjunctivitis, right eye Coding Level of Care Code Est Pt Level 3 (58810) Diagnoses Blepharitis of both eyes H01.003; H01.006 Acute conjunctivitis, right eye H10.31 Additional Codes PHQ-9 - 57260 - PHQ-9 Billing: Yes ([id number])
== END 2021-06-04 14:29 ==
LOC: HO.HMGH 13:53
PROVIDERS: PCP Internal Medicine; Visit Provider Internal Medicine
DX: H01.003 Unspecified blepharitis right eye, unspecified eyelid (principal); H01.006 Unspecified blepharitis left eye, unspecified eyelid; H10.31 Unspecified acute conjunctivitis, right eye
CPT/HCPCS: 99213

== ENCOUNTER 2021-07-10 09:28 | Outpatient (REF) | payer MEDICARE, MEDICAID, OTHER, SELFPAY | END 2021-07-10 09:29 | disposition home or self-care (01) | LOC: HO.HMGCLDS 09:28 | PROVIDERS: PCP Internal Medicine; Visit Provider Internal Medicine | DX: Z13.89 Encounter for screening for other disorder (principal) ==

== ENCOUNTER 2021-07-17 08:41 | Outpatient (REF) | payer MEDICARE, MEDICAID, SELFPAY ==
[2021-07-17 11:34] LABS: MANUAL DIFF FLAG NO
[2021-07-17 11:40] LABS: Basophils Percent Auto 0.4 % (0-2); Eosinophils Absolute Auto 0.1 X10*3/uL (0.0-0.4); Hematocrit 42.8 % (42-52); Imm Gran Abs Auto 0.01 X10*3/uL (0.00-0.03); Imm Gran Pct Auto 0.2 % (0.0-0.4); Lymphocytes Absolute Auto 1.4 X10*3/uL (1.2-4.9); Lymphocytes Percent Auto 29.3 % (20-40); Mean Corpuscular HGB Conc 32.7 g/dl (31.0-36.0); Mean Corpuscular Hemoglobin 29.8 pg (27.0-33.0); Mean Corpuscular Volume 91.1 fL (80-98); Mean Platelet Volume 10.5 fL (9.4-12.4); Monocytes Absolute Auto 0.8 X10*3/uL (0.1-1.2); Monocytes Percent Auto 16.3 % (2-11); Neutrophils Absolute Auto 2.4 X10*3/uL (2.0-8.3); Neutrophils Percent Auto 50.8 % (45-73); Platelet Count 139 X10*3/uL (160-400); Red Cell Distribution Width 12.7 % (11.0-16.0); White Blood Count 4.7 X10*3/uL (4.8-10.8)
[2021-07-17 11:58] LABS: Alanine Aminotransferase 16 U/L (0-40); Albumin Level 3.8 g/dL (3.5-5.0); Alkaline Phosphatase 60 U/L (39-117); Anion Gap 11 (12-20); Aspartate Amino Transferase 19 U/L (5-37); Bilirubin Total 0.4 mg/dL (0.0-1.0); Blood Urea Nitrogen 33 mg/dL (9-16); Calcium 8.4 mg/dL (8.4-10.2); Carbon Dioxide 28 mmol/L (22-29); Chloride 108 mmol/L (96-108); Cholesterol 127 mg/dL; Estimated Glomerular Filt Rate > 60; Glucose Fasting 90 mg/dL (60-99); HDL Cholesterol 40 mg/dL; LDL Cholesterol Calculated 72 mg/dl; Potassium 3.9 mmol/L (3.3-5.1); Sodium 143 mmol/L (135-145); Total Protein 6.7 g/dL (6.5-8.0); Triglycerides 78 mg/dL
[2021-07-17 12:23] LABS: Free T4 (Free Thyroxine) 1.45 ng/dL (0.71-1.85); Thyroid Stimulating Hormone 0.26 uIU/mL (0.32-4.0)
[2021-07-17 13:11] LABS: Erythrocyte Sedimentation Rate 7 MM/HR (0-15)
== END 2021-07-17 08:42 | disposition home or self-care (01) ==
LOC: HO.HMGCLDS 08:41
PROVIDERS: PCP Internal Medicine; Visit Provider Internal Medicine
DX: I25.10 Atherosclerotic heart disease of native coronary artery without angina pectoris (principal); I10 Essential (primary) hypertension; G89.29 Other chronic pain; R10.31 Right lower quadrant pain; E11.9 Type 2 diabetes mellitus without complications; E78.00 Pure hypercholesterolemia, unspecified; E03.9 Hypothyroidism, unspecified; E66.9 Obesity, unspecified
CPT/HCPCS: 36415; 80053; 80061; 84439; 84443; 85025; 85652

== ENCOUNTER 2021-11-20 02:47 | Emergency (ER) | payer MEDICARE, MEDICAID, SELFPAY ==
[2021-11-20 02:53] VITALS: BP 164/88; PULSE 81; RESP 24; O2SAT 96; BMI 25.8
--- NOTE | 2021-11-20 03:00 | ED_ITS ---
HPI - Male Genitourinary General Chief complaint: Urogenital-Male Stated complaint: Unable to urinate Time Seen by Provider: 11/20/21 02:56 Source: patient Mode of arrival: ambulatory Limitations: no limitations History of Present Illness HPI Narrative: Patient comes emergency room complaining of urinary retention since this morning. Patient states that this has happened in the past. States that he also has pain out burning sensation. Patient denies testicular pain, complaining of suprapubic pressure Related Data Home Medications Medication Instructions Recorded Confirmed cetirizine 10 mg tablet 10 mg PO DAILY 06/04/21 09/09/21 amlodipine 2.5 mg tablet 2.5 mg PO DAILY 08/12/21 09/09/21 olanzapine 10 mg tablet 10 mg PO BEDTIME 08/12/21 09/09/21 olanzapine 20 mg tablet 20 mg PO BEDTIME 08/12/21 09/09/21 Previous Rx's Medication Instructions Recorded divalproex 500 mg tablet,delayed 500 mg PO BID #60 tab 04/10/21 release risperidone 1 mg tablet 1 mg PO DAILY #30 tab 04/10/21 risperidone 2 mg tablet 2 mg PO BEDTIME #30 tab 04/10/21 albuterol sulfate 2.5 mg (3 mL) CONTINUOUS 07/01/21 NEBULIZATION TID PRN 30 Days #180 ml albuterol sulfate 90 mcg/actuation 2 puff INHALATION Q4-6H PRN #8.5 07/01/21 g aerosol inhaler (ProAir HFA) cetirizine 10 mg capsule (Allergy 10 mg PO DAILY 30 Days #30 cap 07/10/21 Relief (cetirizine)) levothyroxine 200 mcg tablet 200 mcg PO QAM #30 tab 07/22/21 fluticasone propionate 50 1 spray INTRANASAL DAILY #16 g 08/10/21 mcg/actuation nasal spray,suspension hydrocortisone valerate 0.2 % 1 appl TOPICAL BID 10 Days #15 g 08/12/21 topical cream losartan 50 mg tablet 50 mg PO DAILY 30 Days #30 tab 08/16/21 dicyclomine 20 mg tablet 20 mg PO TID PRN #90 tab 08/29/21 omeprazole 20 mg capsule,delayed 20 mg PO DAILY #30 cap 08/29/21 release atorvastatin 40 mg tablet 40 mg PO DAILY #90 tab 09/09/21 furosemide 20 mg tablet 20 mg PO QAM 30 Days #30 tab 09/09/21 potassium chloride 20 mEq 20 meq PO DAILY 30 Days #30 tab 09/09/21 tablet,extended release(part/cryst) tamsulosin 0.4 mg capsule 0.4 mg PO DAILY #90 cap 09/09/21 tramadol 50 mg tablet 50 mg PO TID PRN 15 Days #45 tab 09/09/21 finasteride 5 mg tablet 5 mg PO DAILY 30 Days #30 tab 09/19/21 phenazopyridine 100 mg tablet 100 mg PO TID #6 tab 11/20/21 tamsulosin 0.4 mg capsule 0.4 mg PO DAILY #14 cap 11/20/21 Allergies Allergy/AdvReac Type Severity Reaction Status Date / Time lisinopril Allergy Intermediate RASH Verified 10/22/21 10:11 [LISINOPRIL] Review of Systems Verdana 4l Review of Systems: Verdana 4d Verdana 4d Constitutional : No Weight loss, No Fever, No Chills, No Night Sweats, No Fatigue, No Malaise ENT/Mouth : No Hearing loss, No Ear Pain, No Nasal Congestion, No Sinus Pain, No Hoarseness, No sore throat, No Rhinorrhea, No Swallowing DifficultyDifficulty Eyes: No Eye Pain, No Swelling, No Redness, No Foreign Body, No Discharge, No Vision Changes Cardiovascular : No Chest Pain, No SOB, No Dyspnea on Exertion, No Orthopnea, No Edema, No Palpitations Respiratory : No Cough, No Sputum, No Wheezing, No Smoke Exposure, No Dyspnea Gastrointestinal : No Nausea, No Vomiting, No Diarrhea, No Constipation, complaining of suprapubic fullness and pain, No Hematochezia, No Melena Genitourinary : no irregular bleeding, No Dysuria, No Urinary Frequency, No Hematuria, No Urinary Incontinence, No Urgency, no flank pain, complaining of urinary re tention Musculoskeletal : No joint pain, No Myalgias, No Joint Swelling Skin : No Skin Lesions, No rash Neuro : No Weakness, No Numbness, No Paresthesias, No Loss of Consciousness, No Dizziness, No Headache Psych : No Anxiety/Panic, No Depression, No SI/HI/AH/VH, No Social Issues, Heme/Lymph: No Bruising, No Bleeding,No Lymphadenopathy Endocrine : No Polyuria, No Polydipsia, No Temperature Intolerance PMFSH Past Medical History Medical History Abdominal pain, chronic, right lower quadrant Acquired hypothyroidism Allergic rhinitis Anxiety Benign essential hypertension CAD (coronary artery disease) Constipation COPD (chronic obstructive pulmonary disease) Diabetes mellitus GERD (gastroesophageal reflux disease) Insomnia Obesity (BMI 30-39.9) Osteoarthritis Pure hypercholesterolemia Vitamin D deficiency Surgical History History of arthroscopic knee surgery History of cardiac catheterization History of colectomy History of esophagogastroduodenoscopy (EGD) History of excision of pilonidal cyst History of eye surgery History of skin graft Hx of colonoscopy Family History Family History Father Stroke CVD (cerebrovascular disease) Mother Hypertension Social History Social History (System 10/02/21 @ 12:52 by Haylie Miller) Household Members: None Housing: House Alcohol intake: former Patient Tobacco Use Status: Former Tobacco user Tobacco use type: Cigarette and Cigar e-Cigarette/Vaping Use: Never Used Second Hand Smoke Exposure: No service: No Current occupational status: retired Sexual orientation: Straight/Heterosexual Physical Exam Verdana 4l Vital Signs: Verdana 4d Verdana 4d Vital Signs: Verdana 4d Verdana 4Bd Last Vital Signs Verdana 4d Strip Polisher New 4d Strip Polisher New 4d Pulse 81 11/20/21 02:53 Strip [employer]isher New 4d Resp 24 H 11/20/21 02:53 Strip [employer]isher New 4d BP 164/88 H 11/20/21 02:53 Pulse Ox 96 11/20/21 02:53 BMI result Body Mass Index 25.8 Course Course Course Narrative: Bladder scan shows 200 mL of urine. Patient refused to urinate, patient requested to be straight cathed. 200 mL were obtained. Urinalysis is negative. Patient has a slight amount of blood in the urine likely secondary to the straight cath. Is possible the patient is straining to urinate. However, it does not seem that patient has retention. Patient was given phenazopyridine for his symptoms and started on tamsulosin. Patient instructed to follow-up with urology and his primary care physician. Patient instructed that if he develops urinary tension, he needs to come to the emergency room. At this time, patient states that he is asymptomatic and feels much better. MDM - Male Genitourinary Lab Data Labs: Lab Results 11/20/21 Range/Units 03:22 Urine Color YELLOW Urine Appearance HAZY Urine pH 6.0 (5.0-8.0) Ur Specific [place]ory 1.025 (1.005-1.025) Urine Protein TRACE (NEG-TRACE) MG/DL Urine Glucose (UA) NEG (NEG) MG/DL Urine Ketones NEG (NEG) MG/DL Urine Blood 2+ H (NEG) Urine Nitrite NEG (NEG) Ur Leukocyte Esterase NEG (NEG) Urine RBC 5-9 H (0) /HPF Urine WBC 0 (0-4) /HPF Ur Squamous Epith Cells TRACE /LPF Urine Bacteria TRACE /LPF Urine Mucus TRACE /LPF Discharge Plan Discharge Clinical Impression: Dysuria Patient Disposition: Home, Self-Care Instructions: Dysuria (ED) Additional Instructions: Please follow-up with your primary care physician tomorrow. If you have any worsening or new symptoms, please return to the emergency room or call 911 Prescriptions: New phenazopyridine 100 mg tablet 100 mg PO TID Qty: 6 0RF tamsulosin 0.4 mg capsule 0.4 mg PO DAILY Qty: 14 0RF No Action albuterol sulfate 2.5 mg /3 mL (0.083 %) solution for nebulization 2.5 mg continuous nebulization TID PRN (Reason: Shortness Of Breath) 30 Days Qty: 180 0RF albuterol sulfate [ProAir HFA] 90 mcg/actuation HFA aerosol inhaler 2 puff inhalation Q4-6H PRN (Reason: bronchospasm) Qty: 8.5 0RF Allergy Relief (cetirizine) 10 mg capsule 10 mg PO DAILY 30 Days Qty: 30 3RF levothyroxine 200 mcg tablet 200 mcg PO QAM Qty: 30 3RF fluticasone propionate 50 mcg/actuation spray,suspension 1 spray intranasal DAILY Qty: 16 0RF omeprazole 20 mg capsule,delayed release(DR/EC) 20 mg PO DAILY Qty: 30 3RF dicyclomine 20 mg tablet 20 mg PO TID PRN (Reason: for pain) Qty: 90 3RF atorvastatin 40 mg tablet 40 mg PO DAILY Qty: 90 1RF tamsulosin 0.4 mg capsule 0.4 mg PO DAILY Qty: 90 1RF tramadol 50 mg tablet 50 mg PO TID PRN (Reason: pain) 15 Days Qty: 45 0RF finasteride 5 mg tablet 5 mg PO DAILY 30 Days Qty: 30 2RF divalproex 500 mg Tablet,Delayed Release (Dr/Ec) 500 mg PO BID Qty: 60 0RF risperidone 2 mg Tablet 2 mg PO BEDTIME Qty: 30 0RF risperidone 1 mg Tablet 1 mg PO DAILY Qty: 30 0RF cetirizine 10 mg tablet 10 mg PO DAILY 0RF furosemide 20 mg tablet 20 mg PO QAM 30 Days Qty: 30 2RF potassium chloride 20 mEq tablet,ER particles/crystals 20 meq PO DAILY 30 Days Qty: 30 3RF Rx Instructions: to be taken together with Furosemide in the morning losartan 50 mg tablet 50 mg PO DAILY 30 Days Qty: 30 4RF olanzapine 10 mg tablet 10 mg PO BEDTIME 0RF olanzapine 20 mg tablet 20 mg PO BEDTIME 0RF amlodipine 2.5 mg tablet 2.5 mg PO DAILY 0RF hydrocortisone valerate 0.2 % cream 1 appl topical BID 10 Days Qty: 15 0RF
[2021-11-20 03:27] LABS: Appearance Urine HAZY; Color Urine YELLOW; Glucose Urine UA NEG (NEG); Leukocyte Esterase Urine NEG (NEG); Nitrite Urine NEG (NEG); Specific Gravity - Urine 1.025 (1.005-1.025); UACC Culture Trigger NO; Urine Blood 2+ (NEG); Urine Ketones NEG (NEG); Urine Protein TRACE MG/DL (NEG-TRACE)
[2021-11-20 03:33] LABS: Bacteria Urine TRACE /LPF; Mucus Urine TRACE /LPF; Squamous Epithelial Cell Urine TRACE /LPF; WBC Urine 0 /HPF (0-4)
[2021-11-20] MEDS: Tamsulosin HCL 0.4 MG CAPSULE PO (03:52)
[2021-11-20] MEDS: Phenazopyridine HCL 100 MG TABLET PO (03:52)
== END 2021-11-20 04:08 | disposition home or self-care (01) ==
LOC: HO.ED 04:01
PROVIDERS: Emergency Provider Emergency Medicine; PCP Internal Medicine
DX: R33.9 Retention of urine, unspecified (principal); N50.812 Left testicular pain; N50.811 Right testicular pain; R30.0 Dysuria; Z79.899 Other long term (current) drug therapy; Z71.6 Tobacco abuse counseling; Z87.891 Personal history of nicotine dependence
CPT/HCPCS: 51798; 81001; 99283; 99284

== ENCOUNTER 2021-11-22 06:20 | Inpatient (IN) | payer MEDICARE, MEDICAID, SELFPAY ==
[2021-11-22] VITALS (7 sets, daily range): BP systolic 102–191; BP diastolic 65–86; PULSE 65–82; RESP 16–20; TEMP 36.3–37.2; O2SAT 95–99; BMI 28.7; BMI 29.4
--- NOTE | 2021-11-22 06:28 | PC.NURSE ---
patient unable to hold still for a blood pressure, unable to get good triage story due to patient continuing to scream at this nurse at he needs immediate medical attention. patient informed to wear a mask in patient care areas. stating i don't do that and handing it back to this nurse. asking bellows charger assembler for room assignment, patient not leaving the triage room until given a room. patient coughing and screaming i am not a baby i am in pain . bring patient to room assignment stating i am not putting on the eliezer i will stay in my own clothes . informed the md will have to preform and exam especially if the patient needs to be cathed like he is initiating on being. continues to state he is not changing into hospital attire.
--- NOTE | 2021-11-22 06:41 | ED_ITS ---
HPI - Male Genitourinary General Chief complaint: Urogenital-Male Stated complaint: Catheter Placement Time Seen by Provider: 11/22/21 06:35 Source: patient Mode of arrival: ambulatory Limitations: other (agitated, yelling) History of Present Illness HPI Narrative: 71 yo male with hx of BPH, bipolar, COPD, anxiety, DM, GERD, chronic abdominal pain presents to ED for 2nd time this week requesting a catheter - apparently he came earlier this week there is no provider note but he demanded a straight catheter for bladder scan under 300 and left ED. He comes this ED stating he drank ETOH and wants a catheter - he does not catheterize at home. He was drinking ETOH. He is very agitated - get me the catheter or a painkiller now. Complaint: other ( I want a catheter. ) Onset (ago): hour(s) (sometime tonight) Duration: constant Location: penis Radiation: penis Severity: moderate Quality: dull Relieving factors: urination Exacerbating factors: none Context: other (states he wants a catheter but does not catheterize at home then gets upset that he only has 260cc in his bladder) Associated symptoms: Reports other ( I drank alcohol tonight. ) Related Data Home Medications Medication Instructions Recorded Confirmed furosemide 20 mg tablet 20 mg PO DAILY 11/22/21 11/22/21 levothyroxine 200 mcg tablet 200 mcg PO DAILY 11/22/21 11/22/21 risperidone 3 mg tablet 1 tab PO BEDTIME 11/22/21 11/22/21 Previous Rx's Medication Instructions Recorded divalproex 500 mg tablet,delayed 500 mg PO BID #60 tab 04/10/21 release risperidone 1 mg tablet 1 mg PO DAILY #30 tab 04/10/21 albuterol sulfate 2.5 mg (3 mL) CONTINUOUS 07/01/21 NEBULIZATION TID PRN 30 Days #180 ml albuterol sulfate 90 mcg/actuation 2 puff INHALATION Q4-6H PRN #8.5 07/01/21 g aerosol inhaler (ProAir HFA) losartan 50 mg tablet 50 mg PO DAILY 30 Days #30 tab 08/16/21 dicyclomine 20 mg tablet 20 mg PO TID PRN #90 tab 08/29/21 omeprazole 20 mg capsule,delayed 20 mg PO DAILY #30 cap 08/29/21 release atorvastatin 40 mg tablet 40 mg PO DAILY #90 tab 09/09/21 potassium chloride 20 mEq 20 meq PO DAILY 30 Days #30 tab 09/09/21 tablet,extended release(part/cryst) tamsulosin 0.4 mg capsule 0.4 mg PO DAILY #90 cap 09/09/21 finasteride 5 mg tablet 5 mg PO DAILY 30 Days #30 tab 09/19/21 Allergies Allergy/AdvReac Type Severity Reaction Status Date / Time lisinopril Allergy Intermediate RASH Verified 11/20/21 09:39 [LISINOPRIL] Review of Systems Verdana 4l Review of Systems: Verdana 4d Verdana 4d Constitutional : No Weight loss, No Fever, No Chills, No Fatigue, No Malaise ENT/Mouth : No sore throat, No Rhinorrhea Eyes: No Eye Pain, No Swelling, No Redness Cardiovascular : No Chest Pain, No SOB, No Dyspnea on Exertion, No Orthopnea,, No Edema, No Palpitations Respiratory : No Cough, No Sputum, No Wheezing Gastrointestinal : No Nausea, No Vomiting, No Diarrhea, No Constipation, No abdominal Pain, No Hematochezia, No Melena Genitourinary : No Dysuria, No Urinary Frequency, No Hematuria, pos urinary retention Musculoskeletal : No joint pain, No Myalgias, No Joint Swelling Skin : No Skin Lesions, No rash Neuro : No Weakness, No Numbness, No Dizziness, No Headache Psych : pos Anxiety/Panic, No Depression Heme/Lymph: No Bruising, No Bleeding,No Lymphadenopathy Endocrine : No Polyuria, No Polydipsia All other systems reviewed and are negative [facility] Past Medical History Attestation statement: The following information was validated with the patient. Source: old records reviewed Medical History Abdominal pain, chronic, right lower quadrant Acquired hypothyroidism Allergic rhinitis Anxiety Benign essential hypertension Benign prostatic hyperplasia with urinary obstruction CAD (coronary artery disease) Constipation COPD (chronic obstructive pulmonary disease) Diabetes mellitus GERD (gastroesophageal reflux disease) Insomnia Obesity (BMI 30-39.9) Osteoarthritis Pure hypercholesterolemia Vitamin D deficiency Surgical History History of arthroscopic knee surgery History of cardiac catheterization History of colectomy History of esophagogastroduodenoscopy (EGD) History of excision of pilonidal cyst History of eye surgery History of skin graft Hx of colonoscopy Family History Family History Father Stroke CVD (cerebrovascular disease) Mother Hypertension Social History Social History Household Members: None Housing: House Alcohol intake: current Alcohol intake frequency: holidays/special occasions only Patient Tobacco Use Status: Former Tobacco user Tobacco use type: Cigarette and Cigar e-Cigarette/Vaping Use: Never Used Second Hand Smoke Exposure: No Use of substances other than those prescribed or required for medical reasons: No Advance Directives: No Advance Directives Information Provided: Yes Healthcare Proxy: Yes Guardian: No service: No Current occupational status: retired Sexual orientation: Straight/Heterosexual Physical Exam Verdana 4l Vital Signs: Verdana 4d Verdana 4d Vital Signs: Verdana 4d Verdana 4Bd Last Vital Signs Verdana 4d [employer] 4d Temp 98.0 F 11/22/21 13:36 [employer] 4d Pulse 72 11/22/21 13:36 [employer] 4d Resp 17 11/22/21 13:36 BP 182/71 H 11/22/21 13:36 Pulse Ox 98 11/22/21 13:36 BMI result Body Mass Index 28.7 Appearance: Alert. Oriented X3. No acute distress. Agitated, yelling, demanding very loud voice, responding to internal stimuli Eyes: Pupils equal, round and reactive to light. ENT: Pharynx normal. Neck: Normal inspection. Neck supple. CVS: Normal heart rate and rhythm. Pulses normal. Respiratory: No respiratory distress. Breath sounds normal. Abdomen: Soft and mild suprapubic ttp but no fullness Skin: Skin warm and dry. Normal skin color. Normal skin turgor. Extremities: No lower extremity edema. No calf ttp Neuro: Oriented X 3. No motor deficit. No sensory deficit. CN2-12 intact Course Course Course Narrative: retaining urine unsure if this is medication related, straight cath ordered, Cr normal - he has not been on his medications for 3 weeks suspect this is the ca use of his issues patient thinks he is taking his medications but unsure - depakote low UA + will start on ceftin has no WBC count, afebrile, no vomiting, no flank pain, no fevers doubt source of his behavior change - UA only positive by nitrites could be pyridium Physician observation started at 1130am. Patient placed in physician observation because the patient needed more time for CARE to assess him for acute psychiatric decompensation. At the time observation was started the patient's vitals were stable, patient is alert and oriented but slightly agitated/anxious, Neuro: nonfocal, CV RRR, Lungs clear MDM - Male Genitourinary MDM Narrative Medical decision making narrative: 71 yo male with hx of BPH, bipolar, COPD, anxiety, DM, GERD, chronic abdominal pain presents to ED for 2nd time this week requesting a catheter - apparently he came earlier this week there is no provider note but he demanded a straight catheter for bladder scan under 300 he is currently bladder scan 260 - I told him we needed to wait a little longer and that this is not appropriate to catheterize someone at this volume as it could introduce infection. He is very agitated, demanding painkillers then stating he drank alcohol. Will obtain labs, UA, continue to monitor his bladder volume, offer pyridium. If he is able to void on his own I am somewhat concerned about his current mental health and may have the CARE team assess him. Lab Data Result diagrams: 11/22/21 08:29 11/22/21 08:29 Labs: Lab Results 11/22/21 11/22/21 11/22/21 Range/Units 08:29 08:29 08:29 WBC 6.8 (4.8-10.8) X10*3/uL RBC 4.86 (4.60-5.80) X10*6/uL Hgb 14.2 (14.0-18.0) g/dl Hct 43.3 (42.0-52.0) % MCV 89.1 (80.0-98.0) fL MCH 29.2 (27.0-33.0) pg MCHC 32.8 (31.0-36.0) g/dl RDW 13.0 (11.0-16.0) % Plt Count 206 (160-400) X10*3/uL MPV 9.2 L (9.4-12.4) fL Immature Gran % (Auto) 0.3 (0.0-0.4) % Neut % (Auto) 71.2 (45-73) % Lymph % (Auto) 16.6 L (20-40) % [place] % (Auto) 10.6 (2-11) % Eos % (Auto) 1.0 (0-4) % Baso % (Auto) 0.3 (0-2) % Lymph # (Auto) 1.1 L (1.2-4.9) X10*3/uL [place] # (Auto) 0.7 (0.1-1.2) X10*3/uL Eos # (Auto) 0.1 (0.0-0.4) X10*3/uL Baso # (Auto) 0.0 (0.0-0.2) X10*3/uL Abs Immat Gran (auto) 0.02 (0.00-0.03) X10*3/uL Absolute Neuts (auto) 4.9 (2.0-8.3) x10*3/uL Absolute Nucleated RBC 0.000 (0.0-0.012) X10*3/uL Nucleated RBC % (auto) 0.0 (0.0-0.2) /100WBC Sodium 140 (135-145) mmol/L Potassium 4.6 (3.3-5.1) mmol/L Chloride 106 (96-108) mmol/L Carbon Dioxide 26 (22-29) mmol/L Anion Gap 13 (12-20) BUN 20 H (9-16) mg/dL Creatinine 1.13 (0.5-1.4) mg/dL Estim Creat Clear Calc 66.9 Estimated GFR > 60 Random Glucose 95 (60-115) mg/dL Calcium 9.3 D (8.4-10.2) mg/dL Urine Color Urine Appearance Urine pH (5.0-8.0) Ur Specific Sutter (1.005-1.025) Urine Protein (NEG-TRACE) MG/DL Urine Glucose (UA) (NEG) MG/DL Urine Ketones (NEG) MG/DL Urine Blood (NEG) Urine Nitrite (NEG) Ur Leukocyte Esterase (NEG) Urine RBC (0) /HPF Urine WBC (0-4) /HPF Ur Squamous Epith Cells /LPF Urine Bacteria /LPF Urine Opiates Screen (Not Detect) Urine Fentanyl Screen (Not Detect) Ur Barbiturates Screen (Not Detect) Valproic Acid (50.0-100.0) mcg/mL Ur Phencyclidine Scrn (Not Detect) Ur Amphetamines Screen (Not Detect) U Benzodiazepines Scrn (Not Detect) Urine Cocaine Screen (Not Detect) U Marijuana (THC) Screen (Not Detect) Ethyl Alcohol < 10 mg/dL COVID-19 (DEEPA) (Negative) COVID-19 Clin Com 11/22/21 11/22/21 11/22/21 Range/Units 08:29 08:29 11:00 WBC (4.8-10.8) X10*3/uL RBC (4.60-5.80) X10*6/uL Hgb (14.0-18.0) g/dl Hct (42.0-52.0) % MCV (80.0-98.0) fL MCH (27.0-33.0) pg MCHC (31.0-36.0) g/dl RDW (11.0-16.0) % Plt Count (160-400) X10*3/uL MPV (9.4-12.4) fL Immature Gran % (Auto) (0.0-0.4) % Neut % (Auto) (45-73) % Lymph % (Auto) (20-40) % [place] % (Auto) (2-11) % Eos % (Auto) (0-4) % Baso % (Auto) (0-2) % Lymph # (Auto) (1.2-4.9) X10*3/uL [place] # (Auto) (0.1-1.2) X10*3/uL Eos # (Auto) (0.0-0.4) X10*3/uL Baso # (Auto) (0.0-0.2) X10*3/uL Abs Immat Gran (auto) (0.00-0.03) X10*3/uL Absolute Neuts (auto) (2.0-8.3) x10*3/uL Absolute Nucleated RBC (0.0-0.012) X10*3/uL Nucleated RBC % (auto) (0.0-0.2) /100WBC Sodium (135-145) mmol/L Potassium (3.3-5.1) mmol/L Chloride (96-108) mmol/L Carbon Dioxide (22-29) mmol/L Anion Gap (12-20) BUN (9-16) mg/dL Creatinine (0.5-1.4) mg/dL Estim Creat Clear Calc Estimated GFR Random Glucose (60-115) mg/dL Calcium (8.4-10.2) mg/dL Urine Color YELLOW Urine Appearance CLEAR Urine pH 6.5 (5.0-8.0) Ur Specific [place] 1.025 (1.005-1.025) Urine Protein 2+ H (NEG-TRACE) MG/DL Urine Glucose (UA) NEG (NEG) MG/DL Urine Ketones 5 (NEG) MG/DL Urine Blood 1+ H (NEG) Urine Nitrite POS H (NEG) Ur Leukocyte Esterase NEG (NEG) Urine RBC 5-9 H (0) /HPF Urine WBC 0-2 (0-4) /HPF Ur Squamous Epith Cells TRACE /LPF Urine Bacteria NONE /LPF Urine Opiates Screen (Not Detect) Urine Fentanyl Screen (Not Detect) Ur Barbiturates Screen (Not Detect) Valproic Acid < 2.0 L (50.0-100.0) mcg/mL Ur Phencyclidine Scrn (Not Detect) Ur Amphetamines Screen (Not Detect) U Benzodiazepines Scrn (Not Detect) Urine Cocaine Screen (Not Detect) U Marijuana (THC) Screen (Not Detect) Ethyl Alcohol mg/dL COVID-19 (DEEPA) Negative (Negative) COVID-19 Clin Com See Note 11/22/21 Range/Units 11:00 WBC (4.8-10.8) X10*3/uL RBC (4.60-5.80) X10*6/uL Hgb (14.0-18.0) g/dl Hct (42.0-52.0) % MCV (80.0-98.0) fL MCH (27.0-33.0) pg MCHC (31.0-36.0) g/dl RDW (11.0-16.0) % Plt Count (160-400) X10*3/uL MPV (9.4-12.4) fL Immature Gran % (Auto) (0.0-0.4) % Neut % (Auto) (45-73) % Lymph % (Auto) (20-40) % [place] % (Auto) (2-11) % Eos % (Auto) (0-4) % Baso % (Auto) (0-2) % Lymph # (Auto) (1.2-4.9) X10*3/uL [place] # (Auto) (0.1-1.2) X10*3/uL Eos # (Auto) (0.0-0.4) X10*3/uL Baso # (Auto) (0.0-0.2) X10*3/uL Abs Immat Gran (auto) (0.00-0.03) X10*3/uL Absolute Neuts (auto) (2.0-8.3) x10*3/uL Absolute Nucleated RBC (0.0-0.012) X10*3/uL Nucleated RBC % (auto) (0.0-0.2) /100WBC Sodium (135-145) mmol/L Potassium (3.3-5.1) mmol/L Chloride (96-108) mmol/L Carbon Dioxide (22-29) mmol/L Anion Gap (12-20) BUN (9-16) mg/dL Creatinine (0.5-1.4) mg/dL Estim Creat Clear Calc Estimated GFR Random Glucose (60-115) mg/dL Calcium (8.4-10.2) mg/dL Urine Color Urine Appearance Urine pH (5.0-8.0) Ur Specific [place] (1.005-1.025) Urine Protein (NEG-TRACE) MG/DL Urine Glucose (UA) (NEG) MG/DL Urine Ketones (NEG) MG/DL Urine Blood (NEG) Urine Nitrite (NEG) Ur Leukocyte Esterase (NEG) Urine RBC (0) /HPF Urine WBC (0-4) /HPF Ur Squamous Epith Cells /LPF Urine Bacteria /LPF Urine Opiates Screen Not Detected (Not Detect) Urine Fentanyl Screen Not Detected (Not Detect) Ur Barbiturates Screen Not Detected (Not Detect) Valproic Acid (50.0-100.0) mcg/mL Ur Phencyclidine Scrn Not Detected (Not Detect) Ur Amphetamines Screen Not Detected (Not Detect) U Benzodiazepines Scrn Not Detected (Not Detect) Urine Cocaine Screen Not Detected (Not Detect) U Marijuana (THC) Screen Not Detected (Not Detect) Ethyl Alcohol mg/dL COVID-19 (DEEPA) (Negative) COVID-19 Clin Com Discharge Plan Discharge Clinical Impression: Acute retention of urine, Acute UTI, Bipolar 1 disorder Patient Disposition: Still a Patient Prescriptions: No Action albuterol sulfate 2.5 mg /3 mL (0.083 %) solution for nebulization 2.5 mg continuous nebulization TID PRN (Reason: Shortness Of Breath) 30 Days Qty: 180 0RF albuterol sulfate [ProAir HFA] 90 mcg/actuation HFA aerosol inhaler 2 puff inhalation Q4-6H PRN (Reason: bronchospasm) Qty: 8.5 0RF omeprazole 20 mg capsule,delayed release(DR/EC) 20 mg PO DAILY Qty: 30 3RF dicyclomine 20 mg tablet 20 mg PO TID PRN (Reason: for pain) Qty: 90 3RF atorvastatin 40 mg tablet 40 mg PO DAILY Qty: 90 1RF tamsulosin 0.4 mg capsule 0.4 mg PO DAILY Qty: 90 1RF finasteride 5 mg tablet 5 mg PO DAILY 30 Days Qty: 30 2RF divalproex 500 mg Tablet,Delayed Release (Dr/Ec) 500 mg PO BID Qty: 60 0RF risperidone 1 mg Tablet 1 mg PO DAILY Qty: 30 0RF risperidone 3 mg tablet 1 tab PO BEDTIME 0RF furosemide 20 mg tablet 20 mg PO DAILY 0RF levothyroxine 200 mcg tablet 200 mcg PO DAILY 0RF potassium chloride 20 mEq tablet,ER particles/crystals 20 meq PO DAILY 30 Days Qty: 30 3RF Rx Instructions: to be taken together with Furosemide in the morning losartan 50 mg tablet 50 mg PO DAILY 30 Days Qty: 30 4RF
[2021-11-22] MEDS: Phenazopyridine HCL 200 MG TABLET PO (07:41)
--- NOTE | 2021-11-22 08:20 | PC.NURSE ---
pt is alert and is halluciating. pt states that he is speaking to a [place]i man in his head. aware.
[2021-11-22 08:33] LABS: MANUAL DIFF FLAG NO
[2021-11-22 08:37] LABS: Basophils Percent Auto 0.3 % (0-2); Eosinophils Absolute Auto 0.1 X10*3/uL (0.0-0.4); Hematocrit 43.3 % (42.0-52.0); Hemoglobin 14.2 g/dl (14.0-18.0); Imm Gran Abs Auto 0.02 X10*3/uL (0.00-0.03); Imm Gran Pct Auto 0.3 % (0.0-0.4); Lymphocytes Absolute Auto 1.1 X10*3/uL (1.2-4.9); Lymphocytes Percent Auto 16.6 % (20-40); Mean Corpuscular HGB Conc 32.8 g/dl (31.0-36.0); Mean Corpuscular Hemoglobin 29.2 pg (27.0-33.0); Mean Corpuscular Volume 89.1 fL (80.0-98.0); Mean Platelet Volume 9.2 fL (9.4-12.4); Monocytes Absolute Auto 0.7 X10*3/uL (0.1-1.2); Monocytes Percent Auto 10.6 % (2-11); Neutrophils Absolute Auto 4.9 x10*3/uL (2.0-8.3); Neutrophils Percent Auto 71.2 % (45-73); Platelet Count 206 X10*3/uL (160-400); Red Blood Count 4.86 X10*6/uL (4.60-5.80); White Blood Count 6.8 X10*3/uL (4.8-10.8)
[2021-11-22 08:50] LABS: COVID-19 Test Negative (Negative)
[2021-11-22 08:51] LABS: Ethanol < 10 mg/dL
[2021-11-22 08:54] LABS: Anion Gap 13 (12-20); Blood Urea Nitrogen 20 mg/dL (9-16); Calcium 9.3 mg/dL (8.4-10.2); Carbon Dioxide 26 mmol/L (22-29); Chloride 106 mmol/L (96-108); Creatinine Clr Calc Pharmacy 66.9; Estimated Glomerular Filt Rate > 60; Glucose Random 95 mg/dL (60-115); Potassium 4.6 mmol/L (3.3-5.1); Sodium 140 mmol/L (135-145)
[2021-11-22 09:37] LABS: Valproate < 2.0 mcg/mL (50.0-100.0)
--- NOTE | 2021-11-22 10:40 | PC.NURSE ---
pt is hallucinating and is requesting to leave. pt states his mother this am and he wants to go and take care of the arrangements for the body today
[2021-11-22 11:10] LABS: Appearance Urine CLEAR; Color Urine YELLOW; Glucose Urine UA NEG (NEG); Leukocyte Esterase Urine NEG (NEG); Nitrite Urine POS (NEG); PH 6.5 (5.0-8.0); Specific Gravity - Urine 1.025 (1.005-1.025); UACC Culture Trigger YES; Urine Blood 1+ (NEG); Urine Ketones 5 MG/DL (NEG); Urine Protein 2+ MG/DL (NEG-TRACE)
[2021-11-22 11:23] LABS: Squamous Epithelial Cell Urine TRACE /LPF; WBC Urine 0-2 /HPF (0-4)
[2021-11-22] MEDS: Tamsulosin HCL 0.4 MG CAPSULE PO (11:33)
[2021-11-22 11:37] LABS: Amphetamine Screen Urine Not Detected (Not Detect); Barbiturates, Urine Not Detected (Not Detect); Benzodiazepines Screen Urine Not Detected (Not Detect); Cannabinoid Screen Urine Not Detected (Not Detect); Cocaine Screen Urine Not Detected (Not Detect); Fentanyl, urine Not Detected (Not Detect); Opiate Screen Urine Not Detected (Not Detect); Phencyclidine Screen Urine Not Detected (Not Detect)
--- NOTE | 2021-11-22 12:29 | PC.NURSE ---
pt's mother perfecto ([phone]) and was updated on pt's status.
--- NOTE | 2021-11-22 12:42 | PHA.MEDREC ---
Pharmacy Consult ? Medication Reconciliation Pharmacy has completed the medication reconciliation. Pt unwilling to speak, medications entered based off of claim history. Spoke to Yoana in ED and she stated that pt hasn't taken medications in 3 weeks. Belen Palumbo, ChiD
--- NOTE | 2021-11-22 13:06 | PC.NURSE ---
rn to rn report given to ben, pt aware of plan of care for transfet to the pod.
[2021-11-22] MEDS: Atorvastatin Calcium 40 MG TABLET PO (14:19)
[2021-11-22] MEDS: risperiDONE 1 MG TABLET PO (14:19)
[2021-11-22] MEDS: Potassium Chloride ER 20 MEQ TAB.ER.PRT PO (14:19)
[2021-11-22] MEDS: Finasteride 5 MG TABLET PO (14:20)
[2021-11-22] MEDS: Losartan Potassium 50 MG TABLET PO (14:20)
[2021-11-22] MEDS: Divalproex Sodium 500 MG TABLET.DR PO ×2 (14:20→20:07)
--- NOTE | 2021-11-22 17:56 | PC.NURSE ---
Per Ebony LEIVA, pt is now on section 12b
--- NOTE | 2021-11-22 17:58 | PC.NURSE ---
First call to S1, report given to Yesica VALDEZ
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
--- NOTE | 2021-11-22 18:07 | PC.NURSE ---
Report given to Yesica on 1929 pickup by S1 Staff
--- NOTE | 2021-11-22 18:09 | PC.NURSE ---
Spoke to care team, Plan for them to help facilitate 1930 Transfer
[2021-11-22] MEDS: risperiDONE 3 MG TABLET PO (20:07)
[2021-11-22] MEDS: traZODone HCL 50 MG TABLET PO (20:37)
--- NOTE | 2021-11-22 23:06 | PC.NURSE ---
Addendum entered by Glory Braga RN 11/22/21 23:35: ADMISSION ASSESSMENT: It was documented in the admission assessment activity that pt. has not history of restraint. However, it was noted in paperwork that on previous visit [place] [facility] pt. has a history of medication and chair restraint. Original Note: Pt. admitted to the unit from [facility] at 1956. Pt. has a diagnosis of bipolar I disorder with psychotic features. Pt. is alert and oriented to person, place and month. Pt. reported the year to be 2001 and then 2003. He was unaware of the date or day of the week. Pt. knows the president is Gloria. He then stated he received a corvette from future president Maria R. The patient appears coherent at times, but is confused and making delusional statements. Pt. denied SI, HI, and VH. He does appear to be responding to internal stimuli and experiencing AH at times though denies this.?Pt denied depression but reported anxiety 01/26. He reports history of left knee surgery with intermittent pain, but none at time of admission. Pt. took HS medications including PRN trazodone 50mg at 2036. During the admission assessment pt. Stated that it was ok to contact his 94 year old mother to let her know of the admission. A short time after RN completed the admission, before a call could be made, the pt requested to go home. He became agitated and insisted on getting dressed in his own clothes. Pt. was assisted with this. RN was able to deescalate the pt but he insisted that his mother not be called. RN had received information from JOSÉ MIGUEL Prather in the ER that the patient?s mother is aware that he is here and she will call the unit after 10AM. Pt. ate a peanut butter and jelly sandwich and drank some milk before returning to bed. The pt. Reports he needs new dentures. He does not have dentures in and has some difficulty chewing foods that are not soft.? The pt declines the flu vaccine stating, ?I don?t need a flu? vaccine. 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 I can heal the blind.? It is unknown whether he was received the flu vaccine this season. Pt. is a former smoker, but reports quitting many years ago. Pt. denies drug use. He reports he drank two shots of whiskey prior to coming to the ER because he felt lousy. Tox screen negative. Pt. reports he was seeing Dr. Ventura at [facility], but does not like this provider. Last visit unknown. Non-compliant with medications for a few weeks. Valproic acid level <2.0.? Pt. came to the ED with difficulty voiding and wanted a perry. He reports he is voiding independently and appeared to be happy about that.? Pt. contracts for safety. Admission orders entered by Ebony Morales NP. Pt. reports he will stay until the morning, but then would like to go home.?
--- NOTE | 2021-11-22 23:45 | PC.ADMIT ---
Pt. admitted to the unit from [facility] ED at 1956. Pt. has a diagnosis of bipolar I disorder with psychotic features. VS: 154/65, 95% on RA, 67, 19, Temp 98. Pt. is alert and oriented to person, place and month. Pt. reported the year to be 2001 and then 2003. He was unaware of the date or day of the week. Pt. knows the president is Gloria. He then stated he received a corvette from future president Maria R. The patient appears coherent at times, but is confused and making delusional statements. Pt. denied SI, HI, and VH. He does appear to be responding to internal stimuli and experiencing AH at times though denies this.? During the admission assessment pt. Stated that it was ok to contact his 94 year old mother to let her know of the admission. A short time after RN completed the admission, before a call could be made, the pt requested to go home. He became agitated and insisted on getting dressed in his own clothes. Pt. was assisted with this. RN was able to deescalate the pt but he insisted that his mother not be called. RN had received information from JOSÉ MIGUEL Prather in the ER that the patient?s mother is aware that he is here and she will call the unit after 10AM. The pt declines the flu vaccine stating, ?I don?t need a flu? vaccine. 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 I can heal the blind.? It is unknown whether he was received the flu vaccine this season. Pt. is a former smoker, but reports quitting many years ago. Pt. denies drug use. He reports he drank two shots of whiskey prior to coming to the ER because he felt lousy. Tox screen negative. Pt denied depression but reported anxiety 4/10. He reports history of left knee surgery with intermittent pain, but none at time of admission. Pt. took HS medications including PRN trazodone 50mg at 2036. Pt. ate a peanut butter and jelly sandwich and drank some milk before returning to bed. The pt. Reports he needs new dentures. He does not have dentures in and has some difficulty chewing foods that are not soft.? Pt. reports he was seeing Dr. Ventura at [facility], but does not like this provider. Last visit unknown. Non-compliant with medications for a few weeks. Valproic acid level <2.0.? Pt. came to the ED with difficulty voiding and wanted a perry. He reports he is voiding independently and appeared to be happy about that.? It was documented in the admission assessment activity that pt. has not history of restraint. However, it was noted in paperwork that on previous visit to [facility] pt. has a history of medication and chair restraint.? Pt. contracts for safety, but refused to do safety tool. Admission orders entered by Ebony Morales NP. He reports he will stay until the morning.?
[2021-11-23] MEDS: Levothyroxine Sodium 200 MCG TABLET PO (05:48)
[2021-11-23] MEDS: Omeprazole 20 MG CAPSULE.DR PO (05:48)
[2021-11-23 06:00] VITALS: BP 145/66; PULSE 91; RESP 14; TEMP 36.9; O2SAT 99
--- NOTE | 2021-11-23 07:50 | P.PNPSI_ITS ---
Subjective Subjective Date of Service: 11/23/21 Reason For Visit: Delusional Subjective Notes: Conditional Voluntary Interim History: 11/23 : H and P reviewed. Pt remains disorganized. Demanding to leave. 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 No urinary complaints today. Taking meds. 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 In hospital attire, sitting up and eating dinner, overweight, not malodorous. Poor eye contact, inattentive. No Tics or Tremors. No abnormal involuntary movements. Did not want to engage in interview. Non-pressured speech, spontaneous with regular rate and rhythm, normal volume and prosody. No prolonged speech latency or dysarthria. Mood is ?fine,? affect is contricted. Denies SI/SIB/HI upon inquiry. Thoughts are beach ential. Has mild cognitive impairment. Insight/ Judgment is poor. Patient Appearance: Disheveled Patient Orientation: Person, Place and Situation Level of Consciousness: Awake Patient Behavior: Guarded and Restless Mood Description: Suspicious Affect Description: Euphoric and Elated Memory Description: Remote Impaired Hallucinations: None Delusions: Grandiose Thought Content: positive for [place] Abnormal Motor Activity Signs and Symptoms: Agitation, Restlessness and Tremors Diagnostics Vital Signs (24Hr): Vital Signs - 24 hr 11/22/21 10:24 11/22/21 11:02 11/22/21 13:36 Temperature 97.4 F 98.0 F Pulse Rate 65 72 Respiratory Rate 16 20 17 Blood Pressure 191/86 H 182/71 H Pulse Oximetry 98 98 11/22/21 17:24 11/22/21 20:00 Temperature 98.9 F 98 F Pulse Rate 72 67 Respiratory Rate 16 19 Blood Pressure 102/66 154/65 H Pulse Oximetry 98 95 BMI result [place] 4 Body Mass Index [place] 4 29.4 [place] 4 [place] 4 Labs Results: 11/22/21 08:29 11/22/21 08:29 Labs: Laboratory Results - last 48 hr 11/22/21 11/22/21 11/22/21 08:29 08:29 08:29 WBC 6.8 RBC 4.86 Hgb 14.2 Hct 43.3 MCV 89.1 MCH 29.2 MCHC 32.8 RDW 13.0 Plt Count 206 MPV 9.2 L Immature Gran % (Auto) 0.3 Neut % (Auto) 71.2 Lymph % (Auto) 16.6 L [place] % (Auto) 10.6 Eos % (Auto) 1.0 Baso % (Auto) 0.3 Lymph # (Auto) 1.1 L [place] # (Auto) 0.7 Eos # (Auto) 0.1 Baso # (Auto) 0.0 Abs Immat Gran (auto) 0.02 Absolute Neuts (auto) 4.9 Absolute Nucleated RBC 0.000 Nucleated RBC % (auto) 0.0 Sodium 140 Potassium 4.6 Chloride 106 Carbon Dioxide 26 Anion Gap 13 BUN 20 H Creatinine 1.13 Estim Creat Clear Calc 66.9 Estimated GFR > 60 Random Glucose 95 Calcium 9.3 D Urine Color Urine Appearance Urine pH Ur Specific [place] Urine Protein Urine Glucose (UA) Urine Ketones Urine Blood Urine Nitrite Ur Leukocyte Esterase Urine RBC Urine WBC Ur Squamous Epith Cells Urine Bacteria Urine Opiates Screen Urine Fentanyl Screen Ur Barbiturates Screen Valproic Acid Ur Phencyclidine Scrn Ur Amphetamines Screen U Benzodiazepines Scrn Urine Cocaine Screen U Marijuana (THC) Screen Ethyl Alcohol < 10 COVID-19 (DEEPA) COVID-19 Clin Com 11/22/21 11/22/21 11/22/21 08:29 08:29 11:00 WBC RBC Hgb Hct MCV MCH MCHC RDW Plt Count MPV Immature Gran % (Auto) Neut % (Auto) Lymph % (Auto) [place] % (Auto) Eos % (Auto) Baso % (Auto) Lymph # (Auto) [place] # (Auto) Eos # (Auto) Baso # (Auto) Abs Immat Gran (auto) Absolute Neuts (auto) Absolute Nucleated RBC Nucleated RBC % (auto) Sodium Potassium Chloride Carbon Dioxide Anion Gap BUN Creatinine Estim Creat Clear Calc Estimated GFR Random Glucose Calcium Urine Color YELLOW Urine Appearance CLEAR Urine pH 6.5 Ur Specific [place] 1.025 Urine Protein 2+ H Urine Glucose (UA) NEG Urine Ketones 5 Urine Blood 1+ H Urine Nitrite POS H Ur Leukocyte Esterase NEG Urine RBC 5-9 H Urine WBC 0-2 Ur Squamous Epith Cells TRACE Urine Bacteria NONE Urine Opiates Screen Urine Fentanyl Screen Ur Barbiturates Screen Valproic Acid < 2.0 L Ur Phencyclidine Scrn Ur Amphetamines Screen U Benzodiazepines Scrn Urine Cocaine Screen U Marijuana (THC) Screen Ethyl Alcohol COVID-19 (DEEPA) Negative COVID-19 Clin Com See Note 11/22/21 11:00 WBC RBC Hgb Hct MCV MCH MCHC RDW Plt Count MPV Immature Gran % (Auto) Neut % (Auto) Lymph % (Auto) [place] % (Auto) Eos % (Auto) Baso % (Auto) Lymph # (Auto) [place] # (Auto) Eos # (Auto) Baso # (Auto) Abs Immat Gran (auto) Absolute Neuts (auto) Absolute Nucleated RBC Nucleated RBC % (auto) Sodium Potassium Chloride Carbon Dioxide Anion Gap BUN Creatinine Estim Creat Clear Calc Estimated GFR Random Glucose Calcium Urine Color Urine Appearance Urine pH Ur Specific [place] Urine Protein Urine Glucose (UA) Urine Ketones Urine Blood Urine Nitrite Ur Leukocyte Esterase Urine RBC Urine WBC Ur Squamous Epith Cells Urine Bacteria Urine Opiates Screen Not Detected Urine Fentanyl Screen Not Detected Ur Barbiturates Screen Not Detected Valproic Acid Ur Phencyclidine Scrn Not Detected Ur Amphetamines Screen Not Detected U Benzodiazepines Scrn Not Detected Urine Cocaine Screen Not Detected U Marijuana (THC) Screen Not Detected Ethyl Alcohol COVID-19 ([facility]EPA) COVID-19 Clin Com Medications Medications Current Medications Acetaminophen (Acetaminophen 325 Mg Tablet) 650 mg PO Q6H PRN PRN Reason: Headache/Pain Mild Scale (1-3) Al Hydroxide/Mg Hydroxide (Magnesium Hydrox/Alum Hydrox 30 Ml Oral.Susp) 30 ml PO Q6H PRN PRN Reason: Heartburn/Nausea Albuterol Sulfate (Albuterol Sulfate (0.083%) 2.5 Mg/3 Ml Vial.Neb) 2.5 mg INHALE TID PRN PRN Reason: Shortness Of Breath Albuterol Sulfate (Albuterol Sulfate 90 Mcg 8 Gm Inhaler) 2 puff INHALE RQ4H PRN PRN Reason: bronchospasm Atorvastatin Calcium (Atorvastatin Calcium 40 Mg Tablet) 40 mg PO DAILY [facility] Last Admin: 11/22/21 14:19 Dose: 40 mg Documented by: Cefuroxime Axetil (Cefuroxime Axetil 500 Mg Tablet) 500 mg PO BID [facility] Stop: 11/29/21 09:01 Last Admin: 11/22/21 20:37 Dose: 500 mg Documented by: Dicyclomine HCl (Dicyclomine Hcl 10 Mg Capsule) 20 mg PO TID PRN PRN Reason: for pain Divalproex Sodium (Divalproex Sodium 500 Mg Tablet.) 500 mg PO BID [facility] Last Admin: 11/22/21 20:07 Dose: 500 mg Documented by: Finasteride (Finasteride 5 Mg Tablet) 5 mg PO DAILY [facility] Last Admin: 11/22/21 14:20 Dose: 5 mg Documented by: Furosemide (Furosemide 20 Mg Tablet) 20 mg PO DAILY [facility]; Protocol Hydroxyzine HCl (Hydroxyzine Hcl 25 Mg Tablet) 25 mg PO Q6H PRN PRN Reason: Anxiety Levothyroxine Sodium (Levothyroxine Sodium 200 Mcg Tablet) 200 mcg PO DAILY@0600 [facility] Last Admin: 11/23/21 05:48 Dose: 200 mcg Documented by: Losartan Potassium (Losartan Potassium 50 Mg Tablet) 50 mg PO DAILY [facility]; Protocol Last Admin: 11/22/21 14:20 Dose: 50 mg Documented by: Magnesium Hydroxide (Milk Of Magnesia 30 Ml Oral.Susp) 30 ml PO DAILY PRN PRN Reason: Constipation Omeprazole (Omeprazole 20 Mg Capsule.) 20 mg PO DAILY@0630 [facility] Last Admin: 11/23/21 05:48 Dose: 20 mg Documented by: Potassium Chloride (Potassium Chloride Er 20 Meq Tab.Er.Prt) 20 meq PO DAILY [facility] Last Admin: 11/22/21 14:19 Dose: 20 meq Documented by: Risperidone (Risperidone 1 Mg Tablet) 1 mg PO DAILY [facility] Last Admin: 11/22/21 14:19 Dose: 1 mg Documented by: Risperidone (Risperidone 3 Mg Tablet) 3 mg PO BEDTIME [facility] Last Admin: 11/22/21 20:07 Dose: 3 mg Documented by: Tamsulosin HCl (Tamsulosin Hcl 0.4 Mg Capsule) 0.4 mg PO DAILY [facility] Trazodone HCl (Trazodone Hcl 50 Mg Tablet) 50 mg PO BEDTIME PRN PRN Reason: Insomnia Last Admin: 11/22/21 20:37 Dose: 50 mg Documented by: Allergies Allergies Allergy/AdvReac Type Severity Reaction Status Date / Time lisinopril Allergy Intermediate RASH Verified 11/20/21 09:39 [LISINOPRIL] Assessment & Plan Assessment & Plan (1) Bipolar 1 disorder: Status: Acute Code(s): F31.9 - Bipolar disorder, unspecified Assessment and Plan: Ct VPA/ Risp (2) Acute UTI: Status: Acute Code(s): N39.0 - Urinary tract infection, site not specified Assessment and Plan: On antibiotics (3) Dementia: Status: Acute Code(s): F03.90 - Unspecified dementia without behavioral disturbance Plan 11/23: Ct VPA and Risp. Pt informed of his right to sign a 3 day notice. I spent minutes with the patient and/or on the patient floor today, greater than?50% of which was spent counseling/coordinating care. Patient educated on: diagnosis Informed Consent: further education needed Reason for contiued inpatient stay Substantial Risk for: rapid decompensation
[2021-11-23] MEDS: Potassium Chloride ER 20 MEQ TAB.ER.PRT PO (07:52)
[2021-11-23] MEDS: Finasteride 5 MG TABLET PO (07:52)
[2021-11-23] MEDS: risperiDONE 1 MG TABLET PO (07:52)
[2021-11-23] MEDS: Divalproex Sodium 500 MG TABLET.DR PO ×2 (07:52→20:04)
[2021-11-23] MEDS: Furosemide 20 MG TABLET PO (07:53)
[2021-11-23] MEDS: Milk of Magnesia 30 ML ORAL.SUSP PO (07:53)
[2021-11-23] MEDS: Losartan Potassium 50 MG TABLET PO (07:53)
[2021-11-23] MEDS: Atorvastatin Calcium 40 MG TABLET PO (07:53)
[2021-11-23] MEDS: Tamsulosin HCL 0.4 MG CAPSULE PO (07:53)
[2021-11-23] MEDS: risperiDONE 3 MG TABLET PO (20:04)
[2021-11-23] MEDS: hydrOXYzine HCL 25 MG TABLET PO (20:05)
[2021-11-23] MEDS: traZODone HCL 50 MG TABLET PO (20:05)
--- NOTE | 2021-11-24 04:15 | HO.PSYCHPN ---
Subjective Subjective Date of Service: 11/24/21 Reason For Visit: Delusional Subjective Notes: Conditional Voluntary Interim History: 11/23 : H and P reviewed. Pt remains disorganized. Demanding to leave. 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 No urinary complaints today. Taking meds. . 11/24: Disorganized. Exit seeking. Staff aware. Remains manic. Was off meds several weeks. Med compliant Became abusive and threatening then polite. 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 In hospital attire, sitting up and eating dinner, overweight, not malodorous. Poor eye contact, inattentive. No Tics or Tremors. No abnormal involuntary movements. Did not want to engage in interview. Non-pressured speech, spontaneous with regular rate and rhythm, normal volume and prosody. No prolonged speech latency or dysarthria. Mood is ?fine,? affect is contricted. Denies SI/SIB/HI upon inquiry. Thoughts are tangential. Has mild cognitive impairment. Insight/ Judgment is poor. Patient Appearance: Disheveled Patient Orientation: Person, Place and Situation Level of Consciousness: Awake Patient Behavior: Guarded and Restless Mood Description: Suspicious Affect Description: Euphoric and Elated Memory Description: Remote Impaired Diagnostics Vital Signs (24Hr): Vital Signs - 24 hr 11/23/21 06:00 Temperature 98.4 F Pulse Rate 91 Respiratory Rate 14 Blood Pressure 145/66 H Pulse Oximetry 99 BMI result Body Mass Index 29.4 Labs Results: 11/22/21 08:29 11/22/21 08:29 Labs: Laboratory Results - last 48 hr 11/22/21 11/22/21 11/22/21 08:29 08:29 08:29 WBC 6.8 RBC 4.86 Hgb 14.2 Hct 43.3 MCV 89.1 MCH 29.2 MCHC 32.8 RDW 13.0 Plt Count 206 MPV 9.2 L Immature Gran % (Auto) 0.3 Neut % (Auto) 71.2 Lymph % (Auto) 16.6 L [place] % (Auto) 10.6 Eos % (Auto) 1.0 Baso % (Auto) 0.3 Lymph # (Auto) 1.1 L [place] # (Auto) 0.7 Eos # (Auto) 0.1 Baso # (Auto) 0.0 Abs Immat Gran (auto) 0.02 Absolute Neuts (auto) 4.9 Absolute Nucleated RBC 0.000 Nucleated RBC % (auto) 0.0 Sodium 140 Potassium 4.6 Chloride 106 Carbon Dioxide 26 Anion Gap 13 BUN 20 H Creatinine 1.13 Estim Creat Clear Calc 66.9 Estimated GFR > 60 Random Glucose 95 Calcium 9.3 D Urine Color Urine Appearance Urine pH Ur Specific [place] Urine Protein Urine Glucose (UA) Urine Ketones Urine Blood Urine Nitrite Ur Leukocyte Esterase Urine RBC Urine WBC Ur Squamous Epith Cells Urine Bacteria Urine Opiates Screen Urine Fentanyl Screen Ur Barbiturates Screen Valproic Acid Ur Phencyclidine Scrn Ur Amphetamines Screen U Benzodiazepines Scrn Urine Cocaine Screen U Marijuana (THC) Screen Ethyl Alcohol < 10 COVID-19 ([facility]EPA) COVID-19 [employer] 11/22/21 11/22/21 11/22/21 08:29 08:29 11:00 WBC RBC Hgb Hct MCV MCH MCHC RDW Plt Count MPV Immature Gran % (Auto) Neut % (Auto) Lymph % (Auto) [place] % (Auto) Eos % (Auto) Baso % (Auto) Lymph # (Auto) [place] # (Auto) Eos # (Auto) Baso # (Auto) Abs Immat Gran (auto) Absolute Neuts (auto) Absolute Nucleated RBC Nucleated RBC % (auto) Sodium Potassium Chloride Carbon Dioxide Anion Gap BUN Creatinine Estim Creat Clear Calc Estimated GFR Random Glucose Calcium Urine Color YELLOW Urine Appearance CLEAR Urine pH 6.5 Ur Specific [place] 1.025 Urine Protein 2+ H Urine Glucose (UA) NEG Urine Ketones 5 Urine Blood 1+ H Urine Nitrite POS H Ur Leukocyte Esterase NEG Urine RBC 5-9 H Urine WBC 0-2 Ur Squamous Epith Cells TRACE Urine Bacteria NONE Urine Opiates Screen Urine Fentanyl Screen Ur Barbiturates Screen Valproic Acid < 2.0 L Ur Phencyclidine Scrn Ur Amphetamines Screen U Benzodiazepines Scrn Urine Cocaine Screen U Marijuana (THC) Screen Ethyl Alcohol COVID-19 (DEEPA) Negative COVID-19 [employer] See Note 11/22/21 11:00 WBC RBC Hgb Hct MCV MCH MCHC RDW Plt Count MPV Immature Gran % (Auto) Neut % (Auto) Lymph % (Auto) [place] % (Auto) Eos % (Auto) Baso % (Auto) Lymph # (Auto) [place] # (Auto) Eos # (Auto) Baso # (Auto) Abs Immat Gran (auto) Absolute Neuts (auto) Absolute Nucleated RBC Nucleated RBC % (auto) Sodium Potassium Chloride Carbon Dioxide Anion Gap BUN Creatinine Estim Creat Clear Calc Estimated GFR Random Glucose Calcium Urine Color Urine Appearance Urine pH Ur Specific [place] Urine Protein Urine Glucose (UA) Urine Ketones Urine Blood Urine Nitrite Ur Leukocyte Esterase Urine RBC Urine WBC Ur Squamous Epith Cells Urine Bacteria Urine Opiates Screen Not Detected Urine Fentanyl Screen Not Detected Ur Barbiturates Screen Not Detected Valproic Acid Ur Phencyclidine Scrn Not Detected Ur Amphetamines Screen Not Detected U Benzodiazepines Scrn Not Detected Urine Cocaine Screen Not Detected U Marijuana (THC) Screen Not Detected Ethyl Alcohol COVID-19 ([facility]EPA) COVID-19 Clin Com Medications Medications Current Medications Acetaminophen (Acetaminophen 325 Mg Tablet) 650 mg PO Q6H PRN PRN Reason: Headache/Pain Mild Scale (1-3) Al Hydroxide/Mg Hydroxide (Magnesium Hydrox/Alum Hydrox 30 Ml Oral.Susp) 30 ml PO Q6H PRN PRN Reason: Heartburn/Nausea Albuterol Sulfate (Albuterol Sulfate (0.083%) 2.5 Mg/3 Ml Vial.Neb) 2.5 mg INHALE TID PRN PRN Reason: Shortness Of Breath Albuterol Sulfate (Albuterol Sulfate 90 Mcg 8 Gm Inhaler) 2 puff INHALE RQ4H PRN PRN Reason: bronchospasm Atorvastatin Calcium (Atorvastatin Calcium 40 Mg Tablet) 40 mg PO DAILY [facility] Last Admin: 11/23/21 07:53 Dose: 40 mg Documented by: Cefuroxime Axetil (Cefuroxime Axetil 500 Mg Tablet) 500 mg PO BID [facility] Stop: 11/29/21 09:01 Last Admin: 11/23/21 20:04 Dose: 500 mg Documented by: Dicyclomine HCl (Dicyclomine Hcl 10 Mg Capsule) 20 mg PO TID PRN PRN Reason: for pain Divalproex Sodium (Divalproex Sodium 500 Mg Tablet.) 500 mg PO BID [facility] Last Admin: 11/23/21 20:04 Dose: 500 mg Documented by: Finasteride (Finasteride 5 Mg Tablet) 5 mg PO DAILY [facility] Last Admin: 11/23/21 07:52 Dose: 5 mg Documented by: Furosemide (Furosemide 20 Mg Tablet) 20 mg PO DAILY [facility]; Protocol Last Admin: 11/23/21 07:53 Dose: 20 mg Documented by: Hydroxyzine HCl (Hydroxyzine Hcl 25 Mg Tablet) 25 mg PO Q6H PRN PRN Reason: Anxiety Last Admin: 11/23/21 20:05 Dose: 25 mg Documented by: Levothyroxine Sodium (Levothyroxine Sodium 200 Mcg Tablet) 200 mcg PO DAILY@0600 [facility] Last Admin: 11/23/21 05:48 Dose: 200 mcg Documented by: Losartan Potassium (Losartan Potassium 50 Mg Tablet) 50 mg PO DAILY [facility]; Protocol Last Admin: 11/23/21 07:53 Dose: 50 mg Documented by: Magnesium Hydroxide (Milk Of Magnesia 30 Ml Oral.Susp) 30 ml PO DAILY PRN PRN Reason: Constipation Last Admin: 11/23/21 07:53 Dose: 30 ml Documented by: Omeprazole (Omeprazole 20 Mg Capsule.Dr) 20 mg PO DAILY@0630 [facility] Last Admin: 11/23/21 05:48 Dose: 20 mg Documented by: Potassium Chloride (Potassium Chloride Er 20 Meq Tab.Er.Prt) 20 meq PO DAILY [facility] Last Admin: 11/23/21 07:52 Dose: 20 meq Documented by: Risperidone (Risperidone 1 Mg Tablet) 1 mg PO DAILY [facility] Last Admin: 11/23/21 07:52 Dose: 1 mg Documented by: Risperidone (Risperidone 3 Mg Tablet) 3 mg PO BEDTIME [facility] Last Admin: 11/23/21 20:04 Dose: 3 mg Documented by: Tamsulosin HCl (Tamsulosin Hcl 0.4 Mg Capsule) 0.4 mg PO DAILY [facility] Last Admin: 11/23/21 07:53 Dose: 0.4 mg Documented by: Trazodone HCl (Trazodone Hcl 50 Mg Tablet) 50 mg PO BEDTIME PRN PRN Reason: Insomnia Last Admin: 11/23/21 20:05 Dose: 50 mg Documented by: Allergies Allergies Allergy/AdvReac Type Severity Reaction Status Date / Time lisinopril [LISINOPRIL] Allergy Intermediate RASH Verified 11/20/21 09:39 Assessment & Plan Assessment & Plan (1) Bipolar 1 disorder: Status: Acute Code(s): F31.9 - Bipolar disorder, unspecified Assessment and Plan: Ct VPA/ Risp (2) Acute UTI: Status: Acute Code(s): N39.0 - Urinary tract infection, site not specified Assessment and Plan: On antibiotics (3) Dementia: Status: Acute Code(s): F03.90 - Unspecified dementia without behavioral disturbance Plan 11/23: Ct VPA and Risp. Pt informed of his right to sign a 3 day notice. 11/24: Ct Rx plan. Restabilize w meds I spent minutes with the patient and/or on the patient floor today, greater than?50% of which was spent counseling/coordinating care. Patient educated on: diagnosis Informed Consent: further education needed Reason for contiued inpatient stay Substantial Risk for: rapid decompensation
[2021-11-24 06:00] VITALS: BP 153/78; PULSE 67; TEMP 36.3; O2SAT 99
[2021-11-24] MEDS: Omeprazole 20 MG CAPSULE.DR PO (06:49)
[2021-11-24] MEDS: Levothyroxine Sodium 200 MCG TABLET PO (06:49)
[2021-11-24] MEDS: Losartan Potassium 50 MG TABLET PO (09:01)
[2021-11-24] MEDS: Divalproex Sodium 500 MG TABLET.DR PO ×2 (09:01→20:36)
[2021-11-24] MEDS: Atorvastatin Calcium 40 MG TABLET PO (09:01)
[2021-11-24] MEDS: Furosemide 20 MG TABLET PO (09:01)
[2021-11-24] MEDS: Finasteride 5 MG TABLET PO (09:01)
[2021-11-24] MEDS: risperiDONE 1 MG TABLET PO (09:05)
[2021-11-24] MEDS: Potassium Chloride ER 20 MEQ TAB.ER.PRT PO (09:05)
[2021-11-24] MEDS: Tamsulosin HCL 0.4 MG CAPSULE PO (09:06)
[2021-11-24] MEDS: risperiDONE 3 MG TABLET PO (20:36)
[2021-11-25] MEDS: Levothyroxine Sodium 200 MCG TABLET PO (05:36)
[2021-11-25 07:40] VITALS: BP 121/56; PULSE 65; RESP 18; TEMP 36.4; O2SAT 97
[2021-11-25] MEDS: risperiDONE 1 MG TABLET PO (08:02)
[2021-11-25] MEDS: Losartan Potassium 50 MG TABLET PO (08:02)
[2021-11-25] MEDS: Potassium Chloride ER 20 MEQ TAB.ER.PRT PO (08:02)
[2021-11-25] MEDS: Tamsulosin HCL 0.4 MG CAPSULE PO (08:02)
[2021-11-25] MEDS: Finasteride 5 MG TABLET PO (08:02)
[2021-11-25] MEDS: Divalproex Sodium 500 MG TABLET.DR PO ×2 (08:02→20:32)
[2021-11-25] MEDS: Furosemide 20 MG TABLET PO (08:02)
[2021-11-25] MEDS: Atorvastatin Calcium 40 MG TABLET PO (08:02)
[2021-11-25] MEDS: Omeprazole 20 MG CAPSULE.DR PO (08:03)
--- NOTE | 2021-11-25 17:44 | HO.PSYCHPN ---
Subjective Subjective Date of Service: 11/25/21 Reason For Visit: Delusional Interim History: Patient seen and discussed with team. Patient evaluated this evening and upon interview he states he is stable and coherent. He is advocating for discharge but declines to sign 3 day notice. During interview pt is clearing his throat compulsively and identifies this as a tic he has at baseline. Says he is sleeping. Pt wants to go home to get his dentures. Says he likes his medications and that as long as they do the job im not worried, i'll take them. I believe in modern medicine. Pt says it is his plan and intention to go home tomorrow at noon, no dolly kat. He discusses his and says they have been in the eyes of god, calls her Nathalie, asks if she can come visit and says this is alienation of affection what's going on right now. When asked if I could call her, he states Id rather you dont bother her, she's with her relatives. Pt endorses delusional thought content that Mr. Heck, our future dance choreographer, is a personal friend, and he will call his dance choreographer if you dont let me go home. I spoke with pt's mom, Gabriela. Says that's his imagination for his . She saw him today, says he seemed good today, in fact he wants to go home. He did have VNA services for med administration but 3 weeks ago he stopped the services on his own, decided he didn't need them anymore, and he stopped taking his meds. He had [facility] care for VNA and additionally has a WIRE MACHINE CUTTER who comes in Thursday and Thursday and cleans total of 4 hours a week, as well as meals on wheels. Says she noticed he was sharp as you and I when he was off his medications x a couple days, it was out of nowhere but then he was still off the medicine and got the way he is today, she wonders if he is on the right medication. She describes his typical delusions as talking about a corvette car, thinks kely will give it to him, even opened his garage door thinking the corvette would be delivered. She says he is not mean or violent, he's just happy and looking for her referring to his delusional , has been out looking for her and tells his mom she will meet her. In the milieu, patient is found lying down in bed, casual attire, overweight, poor eye contact, closed off body language. Denies SI/SIB/HI upon inquiry. Denies irritability or assaultive ideation. Says he feels safe. Medication Compliance: Yes Side effects from medications: No Attending Groups: No Review of Systems Acute medical concerns: No Medical Review of Systems: unchanged Mental Status Exam Mental Status Exam Narrative: Patient Appearance:?Disheveled Patient Orientation:?Person Level of Consciousness:?Awake Patient Behavior:?Cooperative Mood Description:?Suspicious and Withdrawn Affect Description:?Constricted Patient Cognition Impaired:?Yes Ability to Follow Directions:?Fair Speech Pattern:?Appropriate Hallucinations:?Auditory and Visual Delusions:?Paranoid Ideation and Grandiose Thought Process:?Distracted and Evasive Thought Content:?positive for Loose Associations and positive for Disorganized Judgement:?Poor Diagnostics Vital Signs (24Hr): Vital Signs - 24 hr 11/25/21 07:40 Temperature 97.5 F Pulse Rate 65 Respiratory Rate 18 Blood Pressure 121/56 L Pulse Oximetry 97 BMI result Body Mass Index 29.4 Labs Results: 11/22/21 08:29 11/22/21 08:29 Medications Medications Current Medications Acetaminophen (Acetaminophen 325 Mg Tablet) 650 mg PO Q6H PRN PRN Reason: Headache/Pain Mild Scale (1-3) Al Hydroxide/Mg Hydroxide (Magnesium Hydrox/Alum Hydrox 30 Ml Oral.Susp) 30 ml PO Q6H PRN PRN Reason: Heartburn/Nausea Albuterol Sulfate (Albuterol Sulfate (0.083%) 2.5 Mg/3 Ml Vial.Neb) 2.5 mg INHALE TID PRN PRN Reason: Shortness Of Breath Albuterol Sulfate (Albuterol Sulfate 90 Mcg 8 Gm Inhaler) 2 puff INHALE RQ4H PRN PRN Reason: bronchospasm Atorvastatin Calcium (Atorvastatin Calcium 40 Mg Tablet) 40 mg PO DAILY [facility] Last Admin: 11/25/21 08:02 Dose: 40 mg Documented by: Cefuroxime Axetil (Cefuroxime Axetil 500 Mg Tablet) 500 mg PO BID [facility] Stop: 11/29/21 09:01 Last Admin: 11/25/21 08:02 Dose: 500 mg Documented by: Dicyclomine HCl (Dicyclomine Hcl 10 Mg Capsule) 20 mg PO TID PRN PRN Reason: for pain Divalproex Sodium (Divalproex Sodium 500 Mg Tablet.) 500 mg PO BID [facility] Last Admin: 11/25/21 08:02 Dose: 500 mg Documented by: Finasteride (Finasteride 5 Mg Tablet) 5 mg PO DAILY [facility] Last Admin: 11/25/21 08:02 Dose: 5 mg Documented by: Furosemide (Furosemide 20 Mg Tablet) 20 mg PO DAILY [facility]; Protocol Last Admin: 11/25/21 08:02 Dose: 20 mg Documented by: Hydroxyzine HCl (Hydroxyzine Hcl 25 Mg Tablet) 25 mg PO Q6H PRN PRN Reason: Anxiety Last Admin: 11/23/21 20:05 Dose: 25 mg Documented by: Levothyroxine Sodium (Levothyroxine Sodium 200 Mcg Tablet) 200 mcg PO DAILY@0600 [facility] Last Admin: 11/25/21 05:36 Dose: 200 mcg Documented by: Losartan Potassium (Losartan Potassium 50 Mg Tablet) 50 mg PO DAILY [facility]; Protocol Last Admin: 11/25/21 08:02 Dose: 50 mg Documented by: Magnesium Hydroxide (Milk Of Magnesia 30 Ml Oral.Susp) 30 ml PO DAILY PRN PRN Reason: Constipation Last Admin: 11/23/21 07:53 Dose: 30 ml Documented by: Omeprazole (Omeprazole 20 Mg Capsule.) 20 mg PO DAILY@0630 [facility] Last Admin: 11/25/21 08:03 Dose: 20 mg Documented by: Potassium Chloride (Potassium Chloride Er 20 Meq Tab.Er.Prt) 20 meq PO DAILY [facility] Last Admin: 11/25/21 08:02 Dose: 20 meq Documented by: Risperidone (Risperidone 1 Mg Tablet) 1 mg PO DAILY [facility] Last Admin: 11/25/21 08:02 Dose: 1 mg Documented by: Risperidone (Risperidone 3 Mg Tablet) 3 mg PO BEDTIME [facility] Last Admin: 11/24/21 20:36 Dose: 3 mg Documented by: Tamsulosin HCl (Tamsulosin Hcl 0.4 Mg Capsule) 0.4 mg PO DAILY [facility] Last Admin: 11/25/21 08:02 Dose: 0.4 mg Documented by: Trazodone HCl (Trazodone Hcl 50 Mg Tablet) 50 mg PO BEDTIME PRN PRN Reason: Insomnia Last Admin: 11/23/21 20:05 Dose: 50 mg Documented by: Allergies Allergies Allergy/AdvReac Type Severity Reaction Status Date / Time lisinopril [LISINOPRIL] Allergy Intermediate RASH Verified 11/20/21 09:39 Assessment & Plan Assessment & Plan (1) Bipolar 1 disorder: Status: Acute Code(s): F31.9 - Bipolar disorder, unspecified Assessment and Plan: Ct VPA/ Risp (2) Acute UTI: Status: Acute Code(s): N39.0 - Urinary tract infection, site not specified Assessment and Plan: On antibiotics (3) Dementia: Status: Acute Code(s): F03.90 - Unspecified dementia without behavioral disturbance Plan 11/23: Ct VPA and Risp. Pt informed of his right to sign a 3 day notice. 11/24: Ct Rx plan. Restabilize w meds 11/25: explained to pt that he would not be going home, will continue to monitor meds for benefit, declined to sign 3 day notice. I spent minutes with the patient and/or on the patient floor today, greater than?50% of which was spent counseling/coordinating care. Reason for contiued inpatient stay Substantial Risk for: inability to function, rapid decompensation and med/psych decompensation
[2021-11-25 18:00] VITALS: BP 150/70; PULSE 69; RESP 18; TEMP 36.7; O2SAT 99
[2021-11-25] MEDS: risperiDONE 3 MG TABLET PO (20:32)
[2021-11-25] MEDS: traZODone HCL 50 MG TABLET PO (22:21)
[2021-11-25] MEDS: hydrOXYzine HCL 25 MG TABLET PO (22:21)
[2021-11-26] MEDS: Acetaminophen 325 MG TABLET 650 MG PO (04:39)
[2021-11-26 07:45] VITALS: BP 128/59; PULSE 72; RESP 16; TEMP 36.6
[2021-11-26] MEDS: risperiDONE 1 MG TABLET PO (08:10)
[2021-11-26] MEDS: Potassium Chloride ER 20 MEQ TAB.ER.PRT PO (08:10)
[2021-11-26] MEDS: Omeprazole 20 MG CAPSULE.DR PO (08:10)
[2021-11-26] MEDS: Furosemide 20 MG TABLET PO (08:10)
[2021-11-26] MEDS: Divalproex Sodium 500 MG TABLET.DR PO ×2 (08:10→20:08)
[2021-11-26] MEDS: Losartan Potassium 50 MG TABLET PO (08:10)
[2021-11-26] MEDS: Levothyroxine Sodium 200 MCG TABLET PO (08:10)
[2021-11-26] MEDS: Atorvastatin Calcium 40 MG TABLET PO (08:10)
[2021-11-26] MEDS: Tamsulosin HCL 0.4 MG CAPSULE PO (08:11)
[2021-11-26] MEDS: Finasteride 5 MG TABLET PO (08:11)
--- NOTE | 2021-11-26 16:56 | HO.PSYCHPN ---
Subjective Subjective Date of Service: 11/26/21 Reason For Visit: Delusional Subjective Notes: Section 12B Interim History: The nursing staff reported that the patient slept only 5 hours. He has not attended any groups and he has being internally preoccupied. He wants to go home and going with his Nathalie . As per the manager social, the patient has never been the wave does not exist, and he has been under the care of his elderly mother who is 92. He has a chronic patient who became non complain of medications 3 weeks before. On interview the patient stated that he is doing fine that he has packing to go home right now because he he knows that got tell him that he is going to go today. He looks grossly disorganized and psychotic Mental Status Exam Mental Status Exam Patient Appearance: Disheveled Patient Orientation: Person Level of Consciousness: Disoriented and Inappropriate Patient Behavior: Guarded and Suspicious Mood Description: Withdrawn Affect Description: Constricted Patient Cognition Impaired: No Ability to Follow Directions: Good Speech Pattern: Clear Hallucinations: Auditory and Visual Delusions: Paranoid Ideation, Grandiose and Bizarre Thought Process: Illogical Thought Content: positive for Poverty of Content, positive for Loose Associations, positive for Thought Blocking and positive for Incoherent Judgement: Poor Diagnostics Vital Signs (24Hr): Vital Signs - 24 hr 11/25/21 18:00 11/26/21 07:45 Temperature 98.0 F 97.8 F Pulse Rate 69 72 Respiratory Rate 18 16 Blood Pressure 150/70 H 128/59 L Pulse Oximetry 99 BMI result Body Mass Index 29.4 Labs Results: 11/22/21 08:29 11/22/21 08:29 Medications Medications Current Medications Acetaminophen (Acetaminophen 325 Mg Tablet) 650 mg PO Q6H PRN PRN Reason: Headache/Pain Mild Scale (1-3) Last Admin: 11/26/21 04:39 Dose: 650 mg Documented by: Al Hydroxide/Mg Hydroxide (Magnesium Hydrox/Alum Hydrox 30 Ml Oral.Susp) 30 ml PO Q6H PRN PRN Reason: Heartburn/Nausea Albuterol Sulfate (Albuterol Sulfate (0.083%) 2.5 Mg/3 Ml Vial.Neb) 2.5 mg INHALE TID PRN PRN Reason: Shortness Of Breath Albuterol Sulfate (Albuterol Sulfate 90 Mcg 8 Gm Inhaler) 2 puff INHALE RQ4H PRN PRN Reason: bronchospasm Atorvastatin Calcium (Atorvastatin Calcium 40 Mg Tablet) 40 mg PO DAILY [facility] Last Admin: 11/26/21 08:10 Dose: 40 mg Documented by: Cefuroxime Axetil (Cefuroxime Axetil 500 Mg Tablet) 500 mg PO BID [facility] Stop: 11/29/21 09:01 Last Admin: 11/26/21 08:10 Dose: 500 mg Documented by: Dicyclomine HCl (Dicyclomine Hcl 10 Mg Capsule) 20 mg PO TID PRN PRN Reason: for pain Divalproex Sodium (Divalproex Sodium 500 Mg Tablet.) 500 mg PO BID [facility] Last Admin: 11/26/21 08:10 Dose: 500 mg Documented by: Finasteride (Finasteride 5 Mg Tablet) 5 mg PO DAILY [facility] Last Admin: 11/26/21 08:11 Dose: 5 mg Documented by: Furosemide (Furosemide 20 Mg Tablet) 20 mg PO DAILY [facility]; Protocol Last Admin: 11/26/21 08:10 Dose: 20 mg Documented by: Hydroxyzine HCl (Hydroxyzine Hcl 25 Mg Tablet) 25 mg PO Q6H PRN PRN Reason: Anxiety Last Admin: 11/25/21 22:21 Dose: 25 mg Documented by: Levothyroxine Sodium (Levothyroxine Sodium 200 Mcg Tablet) 200 mcg PO DAILY@0600 [facility] Last Admin: 11/26/21 08:10 Dose: 200 mcg Documented by: Losartan Potassium (Losartan Potassium 50 Mg Tablet) 50 mg PO DAILY [facility]; Protocol Last Admin: 11/26/21 08:10 Dose: 50 mg Documented by: Magnesium Hydroxide (Milk Of Magnesia 30 Ml Oral.Susp) 30 ml PO DAILY PRN PRN Reason: Constipation Last Admin: 11/23/21 07:53 Dose: 30 ml Documented by: Omeprazole (Omeprazole 20 Mg Capsule.) 20 mg PO DAILY@0630 [facility] Last Admin: 11/26/21 08:10 Dose: 20 mg Documented by: Potassium Chloride (Potassium Chloride Er 20 Meq Tab.Er.Prt) 20 meq PO DAILY [facility] Last Admin: 11/26/21 08:10 Dose: 20 meq Documented by: Risperidone (Risperidone 1 Mg Tablet) 1 mg PO DAILY [facility] Last Admin: 11/26/21 08:10 Dose: 1 mg Documented by: Risperidone (Risperidone 2 Mg Tablet) 4 mg PO BEDTIME [facility] Tamsulosin HCl (Tamsulosin Hcl 0.4 Mg Capsule) 0.4 mg PO DAILY [facility] Last Admin: 11/26/21 08:11 Dose: 0.4 mg Documented by: Trazodone HCl (Trazodone Hcl 50 Mg Tablet) 50 mg PO BEDTIME PRN PRN Reason: Insomnia Last Admin: 11/25/21 22:21 Dose: 50 mg Documented by: Allergies Allergies Allergy/AdvReac Type Severity Reaction Status Date / Time lisinopril [LISINOPRIL] Allergy Intermediate RASH Verified 11/20/21 09:39 Assessment & Plan Assessment & Plan (1) Bipolar 1 disorder: Status: Acute Code(s): F31.9 - Bipolar disorder, unspecified Assessment and Plan: Ct VPA/ Risp (2) Acute UTI: Status: Acute Code(s): N39.0 - Urinary tract infection, site not specified Assessment and Plan: On antibiotics (3) Dementia: Status: Acute Code(s): F03.90 - Unspecified dementia without behavioral disturbance Plan The patient is a 71-year-old male with a long history of schizoaffective disorder bipolar type, readmitted due to noncompliance of medication with an exacerbation of psychosis. Plan 1. Filed for Section 7 and 8. 2. Continue with Risperdal 1 mg p.o. q.a.m.. 3. Increase Risperdal at HS. 4. Gather collateral information. I spent minutes with the patient and/or on the patient floor today, greater than?50% of which was spent counseling/coordinating care. Reason for contiued inpatient stay Substantial Risk for: inability to function, rapid decompensation and med/psych decompensation
[2021-11-26 20:00] VITALS: BP 139/63; PULSE 58; RESP 18; TEMP 36.5; O2SAT 98
[2021-11-26] MEDS: risperiDONE 2 MG TABLET 4 MG PO (20:08)
[2021-11-26] MEDS: traZODone HCL 50 MG TABLET PO (23:42)
[2021-11-27] MEDS: Levothyroxine Sodium 200 MCG TABLET PO (06:48)
[2021-11-27] MEDS: Omeprazole 20 MG CAPSULE.DR PO (06:48)
[2021-11-27 07:35] VITALS: BP 129/60; PULSE 58; RESP 16; TEMP 36.4; O2SAT 97
[2021-11-27] MEDS: Losartan Potassium 50 MG TABLET PO (08:44)
[2021-11-27] MEDS: Atorvastatin Calcium 40 MG TABLET PO (08:44)
[2021-11-27] MEDS: Furosemide 20 MG TABLET PO (08:44)
[2021-11-27] MEDS: Potassium Chloride ER 20 MEQ TAB.ER.PRT PO (08:44)
[2021-11-27] MEDS: Tamsulosin HCL 0.4 MG CAPSULE PO (08:44)
[2021-11-27] MEDS: risperiDONE 1 MG TABLET PO (08:44)
[2021-11-27] MEDS: Divalproex Sodium 500 MG TABLET.DR PO ×2 (08:44→20:37)
[2021-11-27] MEDS: Finasteride 5 MG TABLET PO (08:45)
[2021-11-27] MEDS: hydrOXYzine HCL 25 MG TABLET PO (10:55)
--- NOTE | 2021-11-27 17:05 | P.PNPSI_ITS ---
Subjective Subjective Date of Service: 11/27/21 Reason For Visit: Delusional Subjective Notes: Section 12B Interim History: The nursing staff reported that the patient has been loud at times and agitated but easily redirectable he has been disorganized, talking to himself and talking to his Nathalie , grossly disorganized. Today, his mother called me and she reported that he has been noncompliant with medications for at least 2 or 3 weeks. She was not pleased that we are finding for Section 7 and 8 but I explained her that this is not agreement and mattery tests even matter and legally I cannot take him here even if his eyes me a conditional voluntary because he has to grossly disorganized and psychotic. Her primary psychiatrist called me and we were able to discuss the case she agreed with the plan to start going with long-acting injectables to assure compliance. Mental Status Exam Mental Status Exam Patient Appearance: Inappropriate Patient Orientation: Person and Situation Level of Consciousness: Awake Patient Behavior: Cooperative Mood Description: Labile Affect Description: Elated Patient Cognition Impaired: Yes Ability to Follow Directions: Fair Speech Pattern: Clear Hallucinations: Auditory and Visual Delusions: Paranoid Ideation, Grandiose and Ideas of Reference Thought Process: Illogical Thought Content: positive for Poverty of Content, positive for Thought Blocking and positive for Disorganized Judgement: Fair Diagnostics Vital Signs (24Hr): Vital Signs - 24 hr 11/26/21 20:00 11/27/21 07:35 Temperature 97.7 F 97.5 F Pulse Rate 58 58 Respiratory Rate 18 16 Blood Pressure 139/63 129/60 Pulse Oximetry 98 97 BMI result Body Mass Index 29.4 Labs Results: 11/22/21 08:29 11/22/21 08:29 Medications Medications Current Medications Acetaminophen (Acetaminophen 325 Mg Tablet) 650 mg PO Q6H PRN PRN Reason: Headache/Pain Mild Scale (1-3) Last Admin: 11/26/21 04:39 Dose: 650 mg Documented by: Al Hydroxide/Mg Hydroxide (Magnesium Hydrox/Alum Hydrox 30 Ml Oral.Susp) 30 ml PO Q6H PRN PRN Reason: Heartburn/Nausea Albuterol Sulfate (Albuterol Sulfate (0.083%) 2.5 Mg/3 Ml Vial.Neb) 2.5 mg INHALE TID PRN PRN Reason: Shortness Of Breath Albuterol Sulfate (Albuterol Sulfate 90 Mcg 8 Gm Inhaler) 2 puff INHALE RQ4H PRN PRN Reason: bronchospasm Atorvastatin Calcium (Atorvastatin Calcium 40 Mg Tablet) 40 mg PO DAILY [facility] Last Admin: 11/27/21 08:44 Dose: 40 mg Documented by: Cefuroxime Axetil (Cefuroxime Axetil 500 Mg Tablet) 500 mg PO BID [facility] Stop: 11/29/21 09:01 Last Admin: 11/27/21 08:44 Dose: 500 mg Documented by: Dicyclomine HCl (Dicyclomine Hcl 10 Mg Capsule) 20 mg PO TID PRN PRN Reason: for pain Divalproex Sodium (Divalproex Sodium 500 Mg Tablet.) 500 mg PO BID [facility] Last Admin: 11/27/21 08:44 Dose: 500 mg Documented by: Finasteride (Finasteride 5 Mg Tablet) 5 mg PO DAILY [facility] Last Admin: 11/27/21 08:45 Dose: 5 mg Documented by: Furosemide (Furosemide 20 Mg Tablet) 20 mg PO DAILY [facility]; Protocol Last Admin: 11/27/21 08:44 Dose: 20 mg Documented by: Hydroxyzine HCl (Hydroxyzine Hcl 25 Mg Tablet) 25 mg PO Q6H PRN PRN Reason: Anxiety Last Admin: 11/27/21 10:55 Dose: 25 mg Documented by: Levothyroxine Sodium (Levothyroxine Sodium 200 Mcg Tablet) 200 mcg PO DAILY@0600 [facility] Last Admin: 11/27/21 06:48 Dose: 200 mcg Documented by: Losartan Potassium (Losartan Potassium 50 Mg Tablet) 50 mg PO DAILY [facility]; Protocol Last Admin: 11/27/21 08:44 Dose: 50 mg Documented by: Magnesium Hydroxide (Milk Of Magnesia 30 Ml Oral.Susp) 30 ml PO DAILY PRN PRN Reason: Constipation Last Admin: 11/23/21 07:53 Dose: 30 ml Documented by: Omeprazole (Omeprazole 20 Mg Capsule.) 20 mg PO DAILY@0630 [facility] Last Admin: 11/27/21 06:48 Dose: 20 mg Documented by: Potassium Chloride (Potassium Chloride Er 20 Meq Tab.Er.Prt) 20 meq PO DAILY [facility] Last Admin: 11/27/21 08:44 Dose: 20 meq Documented by: Risperidone (Risperidone 2 Mg Tablet) 4 mg PO BEDTIME [facility] Last Admin: 11/26/21 20:08 Dose: 4 mg Documented by: Risperidone (Risperidone 2 Mg Tablet) 2 mg PO DAILY [facility] Tamsulosin HCl (Tamsulosin Hcl 0.4 Mg Capsule) 0.4 mg PO DAILY [facility] Last Admin: 11/27/21 08:44 Dose: 0.4 mg Documented by: Trazodone HCl (Trazodone Hcl 50 Mg Tablet) 50 mg PO BEDTIME PRN PRN Reason: Insomnia Last Admin: 11/26/21 23:42 Dose: 50 mg Documented by: Allergies Allergies Allergy/AdvReac Type Severity Reaction Status Date / Time lisinopril [LISINOPRIL] Allergy Intermediate RASH Verified 11/20/21 09:39 Assessment & Plan Assessment & Plan (1) Bipolar 1 disorder: Status: Acute Code(s): F31.9 - Bipolar disorder, unspecified Assessment and Plan: Ct VPA/ Risp (2) Acute UTI: Status: Acute Code(s): N39.0 - Urinary tract infection, site not specified Assessment and Plan: On antibiotics (3) Dementia: Status: Acute Code(s): F03.90 - Unspecified dementia without behavioral disturbance Plan The patient is a 71-year-old male with a long history of schizoaffective disorder bipolar type, readmitted due to noncompliance of medication with an exacerbation of psychosis. Plan 1. Filed for Section 7 and 8. 2. Continue with Risperdal 1 mg p.o. q.a.m.. 3. Increase Risperdal at HS. 4. Gather collateral information. I spent minutes with the patient and/or on the patient floor today, greater than?50% of which was spent counseling/coordinating care. Reason for contiued inpatient stay Substantial Risk for: inability to function, rapid decompensation and med/psych decompensation
[2021-11-27] MEDS: risperiDONE 2 MG TABLET 4 MG PO (20:37)
[2021-11-27] MEDS: Acetaminophen 325 MG TABLET 650 MG PO (20:42)
[2021-11-28] MEDS: Acetaminophen 325 MG TABLET 650 MG PO (02:51)
[2021-11-28] MEDS: traZODone HCL 50 MG TABLET PO ×3 (02:51→23:46)
[2021-11-28] MEDS: Levothyroxine Sodium 200 MCG TABLET PO (06:21)
[2021-11-28] MEDS: Omeprazole 20 MG CAPSULE.DR PO (06:21)
[2021-11-28] MEDS: Divalproex Sodium 500 MG TABLET.DR PO ×2 (08:48→20:38)
[2021-11-28] MEDS: Potassium Chloride ER 20 MEQ TAB.ER.PRT PO (08:48)
[2021-11-28] MEDS: Finasteride 5 MG TABLET PO (08:48)
[2021-11-28] MEDS: Tamsulosin HCL 0.4 MG CAPSULE PO (08:49)
[2021-11-28] MEDS: Losartan Potassium 50 MG TABLET PO (08:49)
[2021-11-28] MEDS: Furosemide 20 MG TABLET PO (08:49)
[2021-11-28] MEDS: Atorvastatin Calcium 40 MG TABLET PO (08:49)
[2021-11-28] MEDS: risperiDONE 2 MG TABLET PO (08:49)
--- NOTE | 2021-11-28 15:37 | HO.PSYCHPN ---
Subjective Subjective Date of Service: 11/28/21 Reason For Visit: Delusional Subjective Notes: Section 12B (Sections 7 and 8 already filed) Interim History: The nursing staff reported the patient has been isolative in his room, very dismissive with some staff. He took p.r.n. Atarax. His mother reported that he hears voices most of the time and at this moment he is not an elopement risk. I contacted his previous prescriber on the last admission and we discovered who Nathalie was: She was an gear machine operator general that he was infatuated several months ago. On interview, the patient denies new symptoms he is pleasant and cooperative but grossly disorganized. Mental Status Exam Mental Status Exam Patient Appearance: Disheveled Patient Orientation: Person Level of Consciousness: Awake Patient Behavior: Cooperative Mood Description: Suspicious and Withdrawn Affect Description: Constricted Patient Cognition Impaired: Yes Ability to Follow Directions: Fair Speech Pattern: Appropriate Hallucinations: Auditory and Visual Delusions: Paranoid Ideation and Grandiose Thought Process: Distracted and Evasive Thought Content: positive for Loose Associations and positive for Disorganized Judgement: Poor Diagnostics Vital Signs (24Hr): BMI result Body Mass Index 29.4 Labs Results: 11/22/21 08:29 11/22/21 08:29 Medications Medications Current Medications Acetaminophen (Acetaminophen 325 Mg Tablet) 650 mg PO Q6H PRN PRN Reason: Headache/Pain Mild Scale (1-3) Last Admin: 11/28/21 02:51 Dose: 650 mg Documented by: Al Hydroxide/Mg Hydroxide (Magnesium Hydrox/Alum Hydrox 30 Ml Oral.Susp) 30 ml PO Q6H PRN PRN Reason: Heartburn/Nausea Albuterol Sulfate (Albuterol Sulfate (0.083%) 2.5 Mg/3 Ml Vial.Neb) 2.5 mg INHALE TID PRN PRN Reason: Shortness Of Breath Albuterol Sulfate (Albuterol Sulfate 90 Mcg 8 Gm Inhaler) 2 puff INHALE RQ4H PRN PRN Reason: bronchospasm Atorvastatin Calcium (Atorvastatin Calcium 40 Mg Tablet) 40 mg PO DAILY [facility] Last Admin: 11/28/21 08:49 Dose: 40 mg Documented by: Cefuroxime Axetil (Cefuroxime Axetil 500 Mg Tablet) 500 mg PO BID [facility] Stop: 11/29/21 09:01 Last Admin: 11/28/21 08:49 Dose: 500 mg Documented by: Dicyclomine HCl (Dicyclomine Hcl 10 Mg Capsule) 20 mg PO TID PRN PRN Reason: for pain Divalproex Sodium (Divalproex Sodium 500 Mg Tablet.) 500 mg PO BID [facility] Last Admin: 11/28/21 08:48 Dose: 500 mg Documented by: Finasteride (Finasteride 5 Mg Tablet) 5 mg PO DAILY [facility] Last Admin: 11/28/21 08:48 Dose: 5 mg Documented by: Furosemide (Furosemide 20 Mg Tablet) 20 mg PO DAILY [facility]; Protocol Last Admin: 11/28/21 08:49 Dose: 20 mg Documented by: Hydroxyzine HCl (Hydroxyzine Hcl 25 Mg Tablet) 25 mg PO Q6H PRN PRN Reason: Anxiety Last Admin: 11/27/21 10:55 Dose: 25 mg Documented by: Levothyroxine Sodium (Levothyroxine Sodium 200 Mcg Tablet) 200 mcg PO DAILY@0600 [facility] Last Admin: 11/28/21 06:21 Dose: 200 mcg Documented by: Losartan Potassium (Losartan Potassium 50 Mg Tablet) 50 mg PO DAILY [facility]; Protocol Last Admin: 11/28/21 08:49 Dose: 50 mg Documented by: Magnesium Hydroxide (Milk Of Magnesia 30 Ml Oral.Susp) 30 ml PO DAILY PRN PRN Reason: Constipation Last Admin: 11/23/21 07:53 Dose: 30 ml Documented by: Omeprazole (Omeprazole 20 Mg Capsule.) 20 mg PO DAILY@0630 [facility] Last Admin: 11/28/21 06:21 Dose: 20 mg Documented by: Potassium Chloride (Potassium Chloride Er 20 Meq Tab.Er.Prt) 20 meq PO DAILY [facility] Last Admin: 11/28/21 08:48 Dose: 20 meq Documented by: Risperidone (Risperidone 2 Mg Tablet) 4 mg PO BEDTIME [facility] Last Admin: 11/27/21 20:37 Dose: 4 mg Documented by: Risperidone (Risperidone 2 Mg Tablet) 2 mg PO DAILY [facility] Last Admin: 11/28/21 08:49 Dose: 2 mg Documented by: Tamsulosin HCl (Tamsulosin Hcl 0.4 Mg Capsule) 0.4 mg PO DAILY [facility] Last Admin: 11/28/21 08:49 Dose: 0.4 mg Documented by: Trazodone HCl (Trazodone Hcl 50 Mg Tablet) 50 mg PO BEDTIME PRN PRN Reason: Insomnia Last Admin: 11/28/21 02:51 Dose: 50 mg Documented by: Allergies Allergies Allergy/AdvReac Type Severity Reaction Status Date / Time lisinopril [LISINOPRIL] Allergy Intermediate RASH Verified 11/20/21 09:39 Assessment & Plan Assessment & Plan (1) Bipolar 1 disorder: Status: Acute Code(s): F31.9 - Bipolar disorder, unspecified Assessment and Plan: Ct VPA/ Risp (2) Acute UTI: Status: Acute Code(s): N39.0 - Urinary tract infection, site not specified Assessment and Plan: On antibiotics (3) Dementia: Status: Acute Code(s): F03.90 - Unspecified dementia without behavioral disturbance Plan The patient is a 71-year-old male with a long history of schizoaffective disorder bipolar type, readmitted due to noncompliance of medication with an exacerbation of psychosis. Plan 1. Filed for Section 7 and 8. 2. Continue Risperdal total dose of 6 mg a day. 3. We will offer long-acting injectable I spent minutes with the patient and/or on the patient floor today, greater than?50% of which was spent counseling/coordinating care. Reason for contiued inpatient stay Substantial Risk for: inability to function, rapid decompensation and med/psych decompensation
[2021-11-28] MEDS: Dicyclomine HCl 10 MG CAPSULE 20 MG PO (15:48)
[2021-11-28 18:00] VITALS: RESP 16
[2021-11-28] MEDS: risperiDONE 2 MG TABLET 4 MG PO (20:41)
[2021-11-28] MEDS: hydrOXYzine HCL 25 MG TABLET PO (23:46)
[2021-11-29] MEDS: Levothyroxine Sodium 200 MCG TABLET PO (06:31)
[2021-11-29] MEDS: Omeprazole 20 MG CAPSULE.DR PO (06:31)
[2021-11-29] MEDS: Losartan Potassium 50 MG TABLET PO (09:43)
[2021-11-29] MEDS: Finasteride 5 MG TABLET PO (09:43)
[2021-11-29] MEDS: Divalproex Sodium 500 MG TABLET.DR PO ×2 (09:43→20:30)
[2021-11-29] MEDS: Potassium Chloride ER 20 MEQ TAB.ER.PRT PO (09:43)
[2021-11-29] MEDS: Furosemide 20 MG TABLET PO (09:43)
[2021-11-29] MEDS: Atorvastatin Calcium 40 MG TABLET PO (09:43)
[2021-11-29] MEDS: risperiDONE 2 MG TABLET PO (09:44)
[2021-11-29] MEDS: Tamsulosin HCL 0.4 MG CAPSULE PO (09:44)
--- NOTE | 2021-11-29 14:19 | P.PNPSI_ITS ---
Subjective Subjective Date of Service: 11/29/21 Reason For Visit: Delusional Subjective Notes: Section 12B Interim History: the nursing staff reported that the patient has been in his room mostly with flat affect isolative not participating to groups. Sometimes he is dismissive to staff. On interview the patient was angry and stated he wants to be discharged as soon as possible, he does not have any insight into his condition. He denies side effects with the current dose of Risperdal. he was threatening stating that he has the power that God given to kill anyone with does not help him, he was redirected easily. We discussed the case with his outpatient psychiatrist and she requested to put him on Invega Sustenna. The patient is refusing IM is a but we will reassess after the Section 7 and 8 since we filed a few days ago Mental Status Exam Mental Status Exam Patient Appearance: Well Grooomed and Unkempt Patient Orientation: Person Level of Consciousness: Awake Patient Behavior: Guarded, Suspicious and Combative Mood Description: Labile and Angry Affect Description: Hostile Patient Cognition Impaired: Yes Ability to Follow Directions: Fair Speech Pattern: Clear and Slurred Memory Description: Intact Hallucinations: Auditory and Visual Delusions: Paranoid Ideation and Grandiose Thought Process: Illogical Thought Content: positive for Circumstantial Judgement: Poor Diagnostics Vital Signs (24Hr): Vital Signs - 24 hr 11/28/21 18:00 Respiratory Rate 16 BMI result Body Mass Index 29.4 Labs Results: 11/22/21 08:29 11/22/21 08:29 Medications Medications Current Medications Acetaminophen (Acetaminophen 325 Mg Tablet) 650 mg PO Q6H PRN PRN Reason: Headache/Pain Mild Scale (1-3) Last Admin: 11/28/21 02:51 Dose: 650 mg Documented by: Al Hydroxide/Mg Hydroxide (Magnesium Hydrox/Alum Hydrox 30 Ml Oral.Susp) 30 ml PO Q6H PRN PRN Reason: Heartburn/Nausea Albuterol Sulfate (Albuterol Sulfate 90 Mcg 8 Gm Inhaler) 2 puff INHALE RQ4H PRN PRN Reason: bronchospasm Atorvastatin Calcium (Atorvastatin Calcium 40 Mg Tablet) 40 mg PO DAILY [facility] Last Admin: 11/29/21 09:43 Dose: 40 mg Documented by: Dicyclomine HCl (Dicyclomine Hcl 10 Mg Capsule) 20 mg PO TID PRN PRN Reason: for pain Last Admin: 11/28/21 15:48 Dose: 20 mg Documented by: Divalproex Sodium (Divalproex Sodium 500 Mg Tablet.) 500 mg PO BID [facility] Last Admin: 11/29/21 09:43 Dose: 500 mg Documented by: Finasteride (Finasteride 5 Mg Tablet) 5 mg PO DAILY [facility] Last Admin: 11/29/21 09:43 Dose: 5 mg Documented by: Furosemide (Furosemide 20 Mg Tablet) 20 mg PO DAILY [facility]; Protocol Last Admin: 11/29/21 09:43 Dose: 20 mg Documented by: Hydroxyzine HCl (Hydroxyzine Hcl 25 Mg Tablet) 25 mg PO Q6H PRN PRN Reason: Anxiety Last Admin: 11/28/21 23:46 Dose: 25 mg Documented by: Levothyroxine Sodium (Levothyroxine Sodium 200 Mcg Tablet) 200 mcg PO DAILY@0600 [facility] Last Admin: 11/29/21 06:31 Dose: 200 mcg Documented by: Losartan Potassium (Losartan Potassium 50 Mg Tablet) 50 mg PO DAILY [facility]; Protocol Last Admin: 11/29/21 09:43 Dose: 50 mg Documented by: Magnesium Hydroxide (Milk Of Magnesia 30 Ml Oral.Susp) 30 ml PO DAILY PRN PRN Reason: Constipation Last Admin: 11/23/21 07:53 Dose: 30 ml Documented by: Omeprazole (Omeprazole 20 Mg Capsule.) 20 mg PO DAILY@0630 [facility] Last Admin: 11/29/21 06:31 Dose: 20 mg Documented by: Potassium Chloride (Potassium Chloride Er 20 Meq Tab.Er.Prt) 20 meq PO DAILY [facility] Last Admin: 11/29/21 09:43 Dose: 20 meq Documented by: Risperidone (Risperidone 2 Mg Tablet) 4 mg PO BEDTIME [facility] Last Admin: 11/28/21 20:41 Dose: 4 mg Documented by: Risperidone (Risperidone 2 Mg Tablet) 2 mg PO DAILY [facility] Last Admin: 11/29/21 09:44 Dose: 2 mg Documented by: Tamsulosin HCl (Tamsulosin Hcl 0.4 Mg Capsule) 0.4 mg PO DAILY [facility] Last Admin: 11/29/21 09:44 Dose: 0.4 mg Documented by: Trazodone HCl (Trazodone Hcl 50 Mg Tablet) 50 mg PO BEDTIME PRN PRN Reason: Insomnia Last Admin: 11/28/21 23:46 Dose: 50 mg Documented by: Allergies Allergies Allergy/AdvReac Type Severity Reaction Status Date / Time lisinopril [LISINOPRIL] Allergy Intermediate RASH Verified 11/20/21 09:39 Assessment & Plan Assessment & Plan (1) Bipolar 1 disorder: Status: Acute Code(s): F31.9 - Bipolar disorder, unspecified Assessment and Plan: Ct VPA/ Risp (2) Acute UTI: Status: Acute Code(s): N39.0 - Urinary tract infection, site not specified Assessment and Plan: On antibiotics (3) Dementia: Status: Acute Code(s): F03.90 - Unspecified dementia without behavioral disturbance Plan The patient is a 71-year-old male with a long history of bipolar disorder and psychosis admitted for exacerbation of psychotic symptoms in the context of noncompliance. Plan 1. Continue Risperdal up to 6 mg a day. 2. He has been filed for Section 7 and 8 we will wait for the hearing. 3. We will consider Invega Sustenna to assure compliance. I spent minutes with the patient and/or on the patient floor today, greater than?50% of which was spent counseling/coordinating care. Reason for contiued inpatient stay Substantial Risk for: inability to function, rapid decompensation and med/psych decompensation
[2021-11-29 18:00] VITALS: BP 131/63; PULSE 62; RESP 18; TEMP 36.1; O2SAT 96
[2021-11-29] MEDS: risperiDONE 2 MG TABLET 4 MG PO (20:29)
[2021-11-30] MEDS: Levothyroxine Sodium 200 MCG TABLET PO (05:32)
[2021-11-30] MEDS: Omeprazole 20 MG CAPSULE.DR PO (05:32)
[2021-11-30] MEDS: Atorvastatin Calcium 40 MG TABLET PO (08:08)
[2021-11-30] MEDS: Divalproex Sodium 500 MG TABLET.DR PO ×2 (08:08→19:58)
[2021-11-30] MEDS: Furosemide 20 MG TABLET PO (08:08)
[2021-11-30] MEDS: risperiDONE 2 MG TABLET PO (08:09)
[2021-11-30] MEDS: Tamsulosin HCL 0.4 MG CAPSULE PO (08:09)
[2021-11-30] MEDS: Losartan Potassium 50 MG TABLET PO (08:09)
[2021-11-30] MEDS: Potassium Chloride ER 20 MEQ TAB.ER.PRT PO (08:09)
[2021-11-30] MEDS: Finasteride 5 MG TABLET PO (08:10)
[2021-11-30 09:18] VITALS: BP 141/75; PULSE 79; RESP 16; TEMP 36.6; O2SAT 98
[2021-11-30] MEDS: hydrOXYzine HCL 25 MG TABLET PO ×2 (12:02→19:58)
--- NOTE | 2021-11-30 12:27 | P.PNPSI_ITS ---
Subjective Subjective Date of Service: 11/30/21 Reason For Visit: Delusional Interim History: I'm in love with Nathalie Viveros . Patient seen and discussed with staff. He said he is in love with a girl he met in a bar in his 20's. He goes on to talk about their relationship. He is circumstantial. Continues paranoid. He denies SI, HI. Review of Systems Review of Systems CVS: No c/o chest pain, palpitations, no SOB [employer]IVER: No c/o dizziness, headache GI: No c/o Nausea, Vomiting, diarrhea, constipation or heartburn Mental Status Exam Mental Status Exam Narrative: Patient Appearance:?Disheveled Patient Orientation:?Person Level of Consciousness:?Awake Patient Behavior:?Cooperative Mood Description:?Suspicious and Withdrawn Affect Description:?Constricted Patient Cognition Impaired:?Yes Ability to Follow Directions:?Fair Speech Pattern:?Appropriate Hallucinations:?Auditory and Visual Delusions:?Paranoid Ideation and Grandiose Thought Process:?Distracted and Evasive Thought Content:?positive for Loose Associations and positive for Disorganized Judgement:?Poor Patient Appearance: Well Grooomed and Unkempt Patient Orientation: Person Level of Consciousness: Awake Patient Behavior: Guarded, Suspicious and Combative Mood Description: Labile and Angry Affect Description: Hostile Patient Cognition Impaired: Yes Ability to Follow Directions: Fair Speech Pattern: Clear and Slurred Memory Description: Intact Diagnostics Vital Signs (24Hr): Vital Signs - 24 hr 11/30/21 09:18 Temperature 97.9 F Pulse Rate 79 Respiratory Rate 16 Blood Pressure 141/75 H Pulse Oximetry 98 BMI result Body Mass Index 29.4 Labs Results: 11/22/21 08:29 11/22/21 08:29 Medications Medications Current Medications Acetaminophen (Acetaminophen 325 Mg Tablet) 650 mg PO Q6H PRN PRN Reason: Headache/Pain Mild Scale (1-3) Last Admin: 11/28/21 02:51 Dose: 650 mg Documented by: Al Hydroxide/Mg Hydroxide (Magnesium Hydrox/Alum Hydrox 30 Ml Oral.Susp) 30 ml PO Q6H PRN PRN Reason: Heartburn/Nausea Albuterol Sulfate (Albuterol Sulfate 90 Mcg 8 Gm Inhaler) 2 puff INHALE RQ4H PRN PRN Reason: bronchospasm Atorvastatin Calcium (Atorvastatin Calcium 40 Mg Tablet) 40 mg PO DAILY [facility] Last Admin: 11/30/21 08:08 Dose: 40 mg Documented by: Dicyclomine HCl (Dicyclomine Hcl 10 Mg Capsule) 20 mg PO TID PRN PRN Reason: for pain Last Admin: 11/28/21 15:48 Dose: 20 mg Documented by: Divalproex Sodium (Divalproex Sodium 500 Mg Tablet.) 500 mg PO BID [facility] Last Admin: 11/30/21 19:58 Dose: 500 mg Documented by: Finasteride (Finasteride 5 Mg Tablet) 5 mg PO DAILY [facility] Last Admin: 11/30/21 08:10 Dose: 5 mg Documented by: Furosemide (Furosemide 20 Mg Tablet) 20 mg PO DAILY [facility]; Protocol Last Admin: 11/30/21 08:08 Dose: 20 mg Documented by: Hydroxyzine HCl (Hydroxyzine Hcl 25 Mg Tablet) 25 mg PO Q6H PRN PRN Reason: Anxiety Last Admin: 11/30/21 19:58 Dose: 25 mg Documented by: Levothyroxine Sodium (Levothyroxine Sodium 200 Mcg Tablet) 200 mcg PO DAILY@0600 [facility] Last Admin: 11/30/21 05:32 Dose: 200 mcg Documented by: Losartan Potassium (Losartan Potassium 50 Mg Tablet) 50 mg PO DAILY [facility]; Protocol Last Admin: 11/30/21 08:09 Dose: 50 mg Documented by: Magnesium Hydroxide (Milk Of Magnesia 30 Ml Oral.Susp) 30 ml PO DAILY PRN PRN Reason: Constipation Last Admin: 11/23/21 07:53 Dose: 30 ml Documented by: Omeprazole (Omeprazole 20 Mg Capsule.) 20 mg PO DAILY@0630 [facility] Last Admin: 11/30/21 05:32 Dose: 20 mg Documented by: Potassium Chloride (Potassium Chloride Er 20 Meq Tab.Er.Prt) 20 meq PO DAILY [facility] Last Admin: 11/30/21 08:09 Dose: 20 meq Documented by: Risperidone (Risperidone 2 Mg Tablet) 4 mg PO BEDTIME [facility] Last Admin: 11/30/21 19:58 Dose: 4 mg Documented by: Risperidone (Risperidone 2 Mg Tablet) 2 mg PO DAILY [facility] Last Admin: 11/30/21 08:09 Dose: 2 mg Documented by: Tamsulosin HCl (Tamsulosin Hcl 0.4 Mg Capsule) 0.4 mg PO DAILY [facility] Last Admin: 11/30/21 08:09 Dose: 0.4 mg Documented by: Trazodone HCl (Trazodone Hcl 50 Mg Tablet) 50 mg PO BEDTIME PRN PRN Reason: Insomnia Last Admin: 11/28/21 23:46 Dose: 50 mg Documented by: Allergies Allergies Allergy/AdvReac Type Severity Reaction Status Date / Time lisinopril [LISINOPRIL] Allergy Intermediate RASH Verified 11/20/21 09:39 Assessment & Plan Assessment & Plan (1) Bipolar 1 disorder: Status: Acute Code(s): F31.9 - Bipolar disorder, unspecified Assessment and Plan: Ct VPA/ Risp (2) Acute UTI: Status: Acute Code(s): N39.0 - Urinary tract infection, site not specified Assessment and Plan: On antibiotics (3) Dementia: Status: Acute Code(s): F03.90 - Unspecified dementia without behavioral disturbance Plan The patient is a 71-year-old male with a long history of bipolar disorder and psychosis admitted for exacerbation of psychotic symptoms in the context of noncompliance. Plan 1. Continue Risperdal up to 6 mg a day. 2. He has been filed for Section 7 and 8 we will wait for the hearing. 3. We will consider Invega Sustenna to assure compliance. I spent minutes with the patient and/or on the patient floor today, greater than?50% of which was spent counseling/coordinating care. Patient educated on: medication risk/benefits and therapeutic strategies Reason for contiued inpatient stay Substantial Risk for: harm to self and inability to function
[2021-11-30 18:00] VITALS: BP 126/60; PULSE 66; RESP 20; TEMP 36.3; O2SAT 98
[2021-11-30] MEDS: risperiDONE 2 MG TABLET 4 MG PO (19:58)
[2021-12-01] MEDS: traZODone HCL 50 MG TABLET PO ×3 (01:02→23:53)
[2021-12-01] MEDS: Levothyroxine Sodium 200 MCG TABLET PO (05:24)
[2021-12-01] MEDS: Omeprazole 20 MG CAPSULE.DR PO (05:38)
[2021-12-01 06:00] VITALS: BP 180/81; PULSE 63; RESP 16; TEMP 36.4; O2SAT 97
[2021-12-01] MEDS: Finasteride 5 MG TABLET PO (08:25)
[2021-12-01] MEDS: Divalproex Sodium 500 MG TABLET.DR PO ×2 (08:25→19:46)
[2021-12-01] MEDS: Tamsulosin HCL 0.4 MG CAPSULE PO (08:25)
[2021-12-01] MEDS: Atorvastatin Calcium 40 MG TABLET PO (08:25)
[2021-12-01] MEDS: Furosemide 20 MG TABLET PO (08:25)
[2021-12-01] MEDS: Losartan Potassium 50 MG TABLET PO (08:25)
[2021-12-01] MEDS: Potassium Chloride ER 20 MEQ TAB.ER.PRT PO (08:25)
[2021-12-01] MEDS: risperiDONE 2 MG TABLET PO (08:26)
--- NOTE | 2021-12-01 17:46 | P.PNPSI_ITS ---
Subjective Subjective Date of Service: 12/01/21 Reason For Visit: Delusional Interim History: Patient seen and discussed. Overall unchanged. He has not been assaultive. Continues paranoid and delusional. Says his mood is good . He denies SI, HI. Review of Systems Review of Systems CVS: No c/o chest pain, palpitations, no SOB [employer]ER: No c/o dizziness, headache GI: No c/o Nausea, Vomiting, diarrhea, constipation or heartburn Mental Status Exam Mental Status Exam Narrative: Patient Appearance:?Disheveled Patient Orientation:?Person Level of Consciousness:?Awake Patient Behavior:?Cooperative Mood Description:?Suspicious and Withdrawn Affect Description:?Constricted Patient Cognition Impaired:?Yes Ability to Follow Directions:?Fair Speech Pattern:?Appropriate Hallucinations:?Auditory and Visual Delusions:?Paranoid Ideation and Grandiose Thought Process:?Distracted and Evasive Thought Content:?positive for Loose Associations and positive for Disorganized Judgement:?Poor Patient Appearance: Well Grooomed and Unkempt Patient Orientation: Person Level of Consciousness: Awake Patient Behavior: Guarded, Suspicious and Combative Mood Description: Labile and Angry Affect Description: Hostile Patient Cognition Impaired: Yes Ability to Follow Directions: Fair Speech Pattern: Clear and Slurred Memory Description: Intact Diagnostics Vital Signs (24Hr): Vital Signs - 24 hr 11/30/21 18:00 12/01/21 06:00 Temperature 97.3 F 97.6 F Pulse Rate 66 63 Respiratory Rate 20 16 Blood Pressure 126/60 180/81 H Pulse Oximetry 98 97 BMI result Body Mass Index 29.4 Labs Results: 11/22/21 08:29 11/22/21 08:29 Medications Medications Current Medications Acetaminophen (Acetaminophen 325 Mg Tablet) 650 mg PO Q6H PRN PRN Reason: Headache/Pain Mild Scale (1-3) Last Admin: 11/28/21 02:51 Dose: 650 mg Documented by: Al Hydroxide/Mg Hydroxide (Magnesium Hydrox/Alum Hydrox 30 Ml Oral.Susp) 30 ml PO Q6H PRN PRN Reason: Heartburn/Nausea Albuterol Sulfate (Albuterol Sulfate 90 Mcg 8 Gm Inhaler) 2 puff INHALE RQ4H PRN PRN Reason: bronchospasm Atorvastatin Calcium (Atorvastatin Calcium 40 Mg Tablet) 40 mg PO DAILY [facility] Last Admin: 12/01/21 08:25 Dose: 40 mg Documented by: Dicyclomine HCl (Dicyclomine Hcl 10 Mg Capsule) 20 mg PO TID PRN PRN Reason: for pain Last Admin: 11/28/21 15:48 Dose: 20 mg Documented by: Divalproex Sodium (Divalproex Sodium 500 Mg Tablet.) 500 mg PO BID [facility] Last Admin: 12/01/21 08:25 Dose: 500 mg Documented by: Finasteride (Finasteride 5 Mg Tablet) 5 mg PO DAILY [facility] Last Admin: 12/01/21 08:25 Dose: 5 mg Documented by: Furosemide (Furosemide 20 Mg Tablet) 20 mg PO DAILY [facility]; Protocol Last Admin: 12/01/21 08:25 Dose: 20 mg Documented by: Hydroxyzine HCl (Hydroxyzine Hcl 25 Mg Tablet) 25 mg PO Q6H PRN PRN Reason: Anxiety Last Admin: 11/30/21 19:58 Dose: 25 mg Documented by: Levothyroxine Sodium (Levothyroxine Sodium 200 Mcg Tablet) 200 mcg PO DAILY@0600 [facility] Last Admin: 12/01/21 05:24 Dose: 200 mcg Documented by: Losartan Potassium (Losartan Potassium 50 Mg Tablet) 50 mg PO DAILY [facility]; Protocol Last Admin: 12/01/21 08:25 Dose: 50 mg Documented by: Magnesium Hydroxide (Milk Of Magnesia 30 Ml Oral.Susp) 30 ml PO DAILY PRN PRN Reason: Constipation Last Admin: 11/23/21 07:53 Dose: 30 ml Documented by: Omeprazole (Omeprazole 20 Mg Capsule.) 20 mg PO DAILY@0630 [facility] Last Admin: 12/01/21 05:38 Dose: 20 mg Documented by: Potassium Chloride (Potassium Chloride Er 20 Meq Tab.Er.Prt) 20 meq PO DAILY [facility] Last Admin: 12/01/21 08:25 Dose: 20 meq Documented by: Risperidone (Risperidone 2 Mg Tablet) 4 mg PO BEDTIME [facility] Last Admin: 11/30/21 19:58 Dose: 4 mg Documented by: Risperidone (Risperidone 2 Mg Tablet) 2 mg PO DAILY [facility] Last Admin: 12/01/21 08:26 Dose: 2 mg Documented by: Tamsulosin HCl (Tamsulosin Hcl 0.4 Mg Capsule) 0.4 mg PO DAILY [facility] Last Admin: 12/01/21 08:25 Dose: 0.4 mg Documented by: Trazodone HCl (Trazodone Hcl 50 Mg Tablet) 50 mg PO BEDTIME PRN PRN Reason: Insomnia Last Admin: 12/01/21 01:02 Dose: 50 mg Documented by: Allergies Allergies Allergy/AdvReac Type Severity Reaction Status Date / Time lisinopril [LISINOPRIL] Allergy Intermediate RASH Verified 11/20/21 09:39 Assessment & Plan Assessment & Plan (1) Bipolar 1 disorder: Status: Acute Code(s): F31.9 - Bipolar disorder, unspecified Assessment and Plan: Ct VPA/ Risp (2) Acute UTI: Status: Acute Code(s): N39.0 - Urinary tract infection, site not specified Assessment and Plan: On antibiotics (3) Dementia: Status: Acute Code(s): F03.90 - Unspecified dementia without behavioral disturbance Plan The patient is a 71-year-old male with a long history of bipolar disorder and psychosis admitted for exacerbation of psychotic symptoms in the context of noncompliance. Plan 1. Continue Risperdal up to 6 mg a day. 2. He has been filed for Section 7 and 8 we will wait for the hearing. 3. We will consider Invega Sustenna to assure compliance. I spent minutes with the patient and/or on the patient floor today, greater than?50% of which was spent counseling/coordinating care. Reason for contiued inpatient stay Substantial Risk for: inability to function and rapid decompensation
[2021-12-01] MEDS: risperiDONE 2 MG TABLET 4 MG PO (19:46)
[2021-12-01] MEDS: hydrOXYzine HCL 25 MG TABLET PO (23:53)
[2021-12-02] MEDS: Acetaminophen 325 MG TABLET 650 MG PO (02:42)
[2021-12-02] MEDS: Levothyroxine Sodium 200 MCG TABLET PO (05:19)
[2021-12-02] MEDS: Omeprazole 20 MG CAPSULE.DR PO (05:19)
--- NOTE | 2021-12-02 15:13 | P.PNPSI_ITS ---
Subjective Subjective Date of Service: 12/02/21 Reason For Visit: Delusional Subjective Notes: Conditional Voluntary Interim History: the nursing staff reported the patient has been delusional and psychotic as usual. Mostly seclusive on his room. The patient admitted the staff that he is hearing voices at least 2 at that time. He stated that he has good friends such as [employer] and [employer]. The staff has reported that the patient needs help on his ADL is and he was agitated yesterday but redirectable. On interview, the patient stated he wants to go home and he does not have any insight into his condition, grossly psychotic at this moment Review of Systems Review of Systems Yes Unobtainable due to mental status Mental Status Exam Mental Status Exam Patient Appearance: Inappropriate and Unkempt Patient Orientation: Person and Situation Level of Consciousness: Awake Patient Behavior: Guarded, Passive, Suspicious and Restless Mood Description: Suspicious, Angry and Elated Affect Description: Labile Patient Cognition Impaired: Yes Ability to Follow Directions: Fair Speech Pattern: Monotone, Inappropriate and Pressured Hallucinations: Auditory and Visual Delusions: Paranoid Ideation and Grandiose Thought Process: Illogical Thought Content: positive for Linear, positive for Perseveration, positive for Incoherent and positive for Disorganized Judgement: Poor Diagnostics Vital Signs (24Hr): BMI result Body Mass Index 29.4 Labs Results: 11/22/21 08:29 11/22/21 08:29 Medications Medications Current Medications Acetaminophen (Acetaminophen 325 Mg Tablet) 650 mg PO Q6H PRN PRN Reason: Headache/Pain Mild Scale (1-3) Last Admin: 12/02/21 02:42 Dose: 650 mg Documented by: Al Hydroxide/Mg Hydroxide (Magnesium Hydrox/Alum Hydrox 30 Ml Oral.Susp) 30 ml PO Q6H PRN PRN Reason: Heartburn/Nausea Albuterol Sulfate (Albuterol Sulfate 90 Mcg 8 Gm Inhaler) 2 puff INHALE RQ4H PRN PRN Reason: bronchospasm Atorvastatin Calcium (Atorvastatin Calcium 40 Mg Tablet) 40 mg PO DAILY [facility] Last Admin: 12/02/21 09:10 Dose: Not Given Documented by: Dicyclomine HCl (Dicyclomine Hcl 10 Mg Capsule) 20 mg PO TID PRN PRN Reason: for pain Last Admin: 11/28/21 15:48 Dose: 20 mg Documented by: Divalproex Sodium (Divalproex Sodium 500 Mg Tablet.) 500 mg PO BID [facility] Last Admin: 12/02/21 09:10 Dose: Not Given Documented by: Finasteride (Finasteride 5 Mg Tablet) 5 mg PO DAILY [facility] Last Admin: 12/02/21 09:10 Dose: Not Given Documented by: Furosemide (Furosemide 20 Mg Tablet) 20 mg PO DAILY [facility]; Protocol Last Admin: 12/02/21 09:10 Dose: Not Given Documented by: Hydroxyzine HCl (Hydroxyzine Hcl 25 Mg Tablet) 25 mg PO Q6H PRN PRN Reason: Anxiety Last Admin: 12/01/21 23:53 Dose: 25 mg Documented by: Levothyroxine Sodium (Levothyroxine Sodium 200 Mcg Tablet) 200 mcg PO DAILY@0600 [facility] Last Admin: 12/02/21 05:19 Dose: 200 mcg Documented by: Losartan Potassium (Losartan Potassium 50 Mg Tablet) 50 mg PO DAILY [facility]; Protocol Last Admin: 12/02/21 09:10 Dose: Not Given Documented by: Magnesium Hydroxide (Milk Of Magnesia 30 Ml Oral.Susp) 30 ml PO DAILY PRN PRN Reason: Constipation Last Admin: 11/23/21 07:53 Dose: 30 ml Documented by: Omeprazole (Omeprazole 20 Mg Capsule.) 20 mg PO DAILY@0630 [facility] Last Admin: 12/02/21 05:19 Dose: 20 mg Documented by: Potassium Chloride (Potassium Chloride Er 20 Meq Tab.Er.Prt) 20 meq PO DAILY [facility] Last Admin: 12/02/21 09:11 Dose: Not Given Documented by: Risperidone (Risperidone 2 Mg Tablet) 4 mg PO BEDTIME [facility] Last Admin: 12/01/21 19:46 Dose: 4 mg Documented by: Risperidone (Risperidone 2 Mg Tablet) 2 mg PO DAILY [facility] Last Admin: 12/02/21 09:11 Dose: Not Given Documented by: Tamsulosin HCl (Tamsulosin Hcl 0.4 Mg Capsule) 0.4 mg PO DAILY [facility] Last Admin: 12/02/21 09:11 Dose: Not Given Documented by: Trazodone HCl (Trazodone Hcl 50 Mg Tablet) 50 mg PO BEDTIME PRN PRN Reason: Insomnia Last Admin: 12/01/21 23:53 Dose: 50 mg Documented by: Allergies Allergies Allergy/AdvReac Type Severity Reaction Status Date / Time lisinopril [LISINOPRIL] Allergy Intermediate RASH Verified 11/20/21 09:39 Assessment & Plan Assessment & Plan (1) Bipolar 1 disorder: Status: Acute Code(s): F31.9 - Bipolar disorder, unspecified Assessment and Plan: Ct VPA/ Risp (2) Acute UTI: Status: Acute Code(s): N39.0 - Urinary tract infection, site not specified Assessment and Plan: On antibiotics (3) Dementia: Status: Acute Code(s): F03.90 - Unspecified dementia without behavioral disturbance Plan The patient is a 71-year-old male with a long history of bipolar disorder and psychosis admitted for exacerbation of psychotic symptoms in the context of noncompliance. Plan 1. Continue Risperdal up to 6 mg a day. 2. He has been filed for Section 7 and 8 we will wait for the hearing. 3. We will consider Invega Sustenna to assure compliance. I spent minutes with the patient and/or on the patient floor today, greater than?50% of which was spent counseling/coordinating care. Reason for contiued inpatient stay Substantial Risk for: inability to function, rapid decompensation and med/psych decompensation
[2021-12-02 18:00] VITALS: BP 160/74; PULSE 53; TEMP 36.6; O2SAT 96
[2021-12-03] MEDS: Levothyroxine Sodium 200 MCG TABLET PO (06:55)
[2021-12-03] MEDS: Omeprazole 20 MG CAPSULE.DR PO (06:55)
[2021-12-03 07:50] VITALS: BP 144/67; PULSE 60; RESP 18; TEMP 36.1; O2SAT 98
[2021-12-03] MEDS: Atorvastatin Calcium 40 MG TABLET PO (08:18)
[2021-12-03] MEDS: Potassium Chloride ER 20 MEQ TAB.ER.PRT PO (08:18)
[2021-12-03] MEDS: Finasteride 5 MG TABLET PO (08:18)
[2021-12-03] MEDS: Divalproex Sodium 500 MG TABLET.DR PO (08:19)
[2021-12-03] MEDS: Losartan Potassium 50 MG TABLET PO (08:19)
[2021-12-03] MEDS: Tamsulosin HCL 0.4 MG CAPSULE PO (08:19)
[2021-12-03] MEDS: risperiDONE 2 MG TABLET PO (08:19)
[2021-12-03] MEDS: Furosemide 20 MG TABLET PO (08:19)
--- NOTE | 2021-12-03 15:27 | P.PNPSI_ITS ---
Subjective Subjective Date of Service: 12/03/21 Reason For Visit: Delusional Interim History: the nursing staff reported that the patient took a shower yesterday. He needed a lot of assistance to do his ADL eyes. Still he is very delusional. According to the staff, he refuses Depakote and Risperdal last night. On interview, the patient was on his bed he asked about his discharge and he admitted to auditory hallucinations. Mental Status Exam Mental Status Exam Patient Orientation: Person Level of Consciousness: Awake Patient Behavior: Guarded and Passive Mood Description: Depressed Affect Description: Constricted Patient Cognition Impaired: Yes Ability to Follow Directions: Fair Speech Pattern: Monotone and Soft-Spoken Hallucinations: Auditory and Visual Delusions: Paranoid Ideation Judgement: Poor Diagnostics Vital Signs (24Hr): Vital Signs - 24 hr 12/02/21 18:00 12/03/21 07:50 Temperature 97.8 F 97.0 F Pulse Rate 53 60 Respiratory Rate 18 Blood Pressure 160/74 H 144/67 H Pulse Oximetry 96 98 BMI result Body Mass Index 29.4 Labs Results: 11/22/21 08:29 11/22/21 08:29 Medications Medications Current Medications Acetaminophen (Acetaminophen 325 Mg Tablet) 650 mg PO Q6H PRN PRN Reason: Headache/Pain Mild Scale (1-3) Last Admin: 12/02/21 02:42 Dose: 650 mg Documented by: Al Hydroxide/Mg Hydroxide (Magnesium Hydrox/Alum Hydrox 30 Ml Oral.Susp) 30 ml PO Q6H PRN PRN Reason: Heartburn/Nausea Albuterol Sulfate (Albuterol Sulfate 90 Mcg 8 Gm Inhaler) 2 puff INHALE RQ4H PRN PRN Reason: bronchospasm Atorvastatin Calcium (Atorvastatin Calcium 40 Mg Tablet) 40 mg PO DAILY [facility] Last Admin: 12/03/21 08:18 Dose: 40 mg Documented by: Dicyclomine HCl (Dicyclomine Hcl 10 Mg Capsule) 20 mg PO TID PRN PRN Reason: for pain Last Admin: 11/28/21 15:48 Dose: 20 mg Documented by: Divalproex Sodium (Divalproex Sodium 500 Mg Tablet.) 500 mg PO BID [facility] Last Admin: 12/03/21 08:19 Dose: 500 mg Documented by: Finasteride (Finasteride 5 Mg Tablet) 5 mg PO DAILY [facility] Last Admin: 12/03/21 08:18 Dose: 5 mg Documented by: Furosemide (Furosemide 20 Mg Tablet) 20 mg PO DAILY [facility]; Protocol Last Admin: 12/03/21 08:19 Dose: 20 mg Documented by: Hydroxyzine HCl (Hydroxyzine Hcl 25 Mg Tablet) 25 mg PO Q6H PRN PRN Reason: Anxiety Last Admin: 12/01/21 23:53 Dose: 25 mg Documented by: Levothyroxine Sodium (Levothyroxine Sodium 200 Mcg Tablet) 200 mcg PO DAILY@0600 [facility] Last Admin: 12/03/21 06:55 Dose: 200 mcg Documented by: Losartan Potassium (Losartan Potassium 50 Mg Tablet) 50 mg PO DAILY [facility]; Protocol Last Admin: 12/03/21 08:19 Dose: 50 mg Documented by: Magnesium Hydroxide (Milk Of Magnesia 30 Ml Oral.Susp) 30 ml PO DAILY PRN PRN Reason: Constipation Last Admin: 11/23/21 07:53 Dose: 30 ml Documented by: Omeprazole (Omeprazole 20 Mg Capsule.Dr) 20 mg PO DAILY@0630 [facility] Last Admin: 12/03/21 06:55 Dose: 20 mg Documented by: Potassium Chloride (Potassium Chloride Er 20 Meq Tab.Er.Prt) 20 meq PO DAILY [facility] Last Admin: 12/03/21 08:18 Dose: 20 meq Documented by: Risperidone (Risperidone 2 Mg Tablet) 4 mg PO BEDTIME [facility] Last Admin: 12/02/21 22:28 Dose: Not Given Documented by: Risperidone (Risperidone 2 Mg Tablet) 2 mg PO DAILY [facility] Last Admin: 12/03/21 08:19 Dose: 2 mg Documented by: Tamsulosin HCl (Tamsulosin Hcl 0.4 Mg Capsule) 0.4 mg PO DAILY [facility] Last Admin: 12/03/21 08:19 Dose: 0.4 mg Documented by: Trazodone HCl (Trazodone Hcl 50 Mg Tablet) 50 mg PO BEDTIME PRN PRN Reason: Insomnia Last Admin: 12/01/21 23:53 Dose: 50 mg Documented by: Allergies Allergies Allergy/AdvReac Type Severity Reaction Status Date / Time lisinopril [LISINOPRIL] Allergy Intermediate RASH Verified 11/20/21 09:39 Assessment & Plan Assessment & Plan (1) Bipolar 1 disorder: Status: Acute Code(s): F31.9 - Bipolar disorder, unspecified Assessment and Plan: Ct VPA/ Risp (2) Acute UTI: Status: Acute Code(s): N39.0 - Urinary tract infection, site not specified Assessment and Plan: On antibiotics (3) Dementia: Status: Acute Code(s): F03.90 - Unspecified dementia without behavioral disturbance Plan The patient is a 71-year-old male with a long history of bipolar disorder and psychosis admitted for exacerbation of psychotic symptoms in the context of noncompliance. Plan 1. Continue Risperdal up to 6 mg a day. 2. He has been filed for Section 7 and 8 we will wait for the hearing. 3. We will consider Invega Sustenna to assure compliance. I spent minutes with the patient and/or on the patient floor today, greater than?50% of which was spent counseling/coordinating care. Reason for contiued inpatient stay Substantial Risk for: inability to function, rapid decompensation and med/psych decompensation
[2021-12-03 20:17] VITALS: BP 135/63; PULSE 57; RESP 16; TEMP 36.7; O2SAT 97
--- NOTE | 2021-12-03 20:25 | PC.NURSE ---
PT refusing HS medications and is presently standing calmly near the door with his belongings. This ghost writer tried to talk to PT and PT said, Leave me alone, I might get violent
[2021-12-04] MEDS: traZODone HCL 50 MG TABLET PO ×2 (01:52→23:56)
[2021-12-04] MEDS: hydrOXYzine HCL 25 MG TABLET PO (01:52)
[2021-12-04] MEDS: Acetaminophen 325 MG TABLET 650 MG PO (01:52)
[2021-12-04] MEDS: Levothyroxine Sodium 200 MCG TABLET PO (05:24)
[2021-12-04] MEDS: Omeprazole 20 MG CAPSULE.DR PO (05:24)
[2021-12-04 07:40] VITALS: BP 151/68; PULSE 62; RESP 17; TEMP 36.8; O2SAT 99
[2021-12-04] MEDS: Furosemide 20 MG TABLET PO (08:15)
[2021-12-04] MEDS: risperiDONE 2 MG TABLET PO (08:15)
[2021-12-04] MEDS: Divalproex Sodium 500 MG TABLET.DR PO ×2 (08:15→20:25)
[2021-12-04] MEDS: Potassium Chloride ER 20 MEQ TAB.ER.PRT PO (08:15)
[2021-12-04] MEDS: Finasteride 5 MG TABLET PO (08:15)
[2021-12-04] MEDS: Tamsulosin HCL 0.4 MG CAPSULE PO (08:16)
[2021-12-04] MEDS: Losartan Potassium 50 MG TABLET PO (08:16)
[2021-12-04] MEDS: Atorvastatin Calcium 40 MG TABLET PO (08:16)
--- NOTE | 2021-12-04 16:33 | P.PNPSI_ITS ---
Subjective Subjective Date of Service: 12/04/21 Reason For Visit: Delusional Subjective Notes: Section 12B Interim History: the nursing staff reported the patient has refused medications yesterday last night. On interview the patient was angry he wanted to be discharged. Her mother called me and we discussed the treatment options and I proposed long- acting injectables to assure compliance. She wants to continue with this treatment but the patient refused and I of for it Mental Status Exam Mental Status Exam Patient Appearance: Well Grooomed Patient Orientation: Person and Situation Level of Consciousness: Awake Patient Behavior: Cooperative Mood Description: Depressed and Hostile Affect Description: Labile Patient Cognition Impaired: Yes Ability to Follow Directions: Fair Speech Pattern: Clear Hallucinations: None Delusions: Not Present Thought Process: Illogical and Evasive Thought Content: positive for Circumstantial and positive for Poverty of Content Judgement: Poor Diagnostics Vital Signs (24Hr): Vital Signs - 24 hr 12/03/21 20:17 12/04/21 07:40 Temperature 98.1 F 98.2 F Pulse Rate 57 62 Respiratory Rate 16 17 Blood Pressure 135/63 151/68 H Pulse Oximetry 97 99 BMI result Body Mass Index 29.4 Labs Results: 11/22/21 08:29 11/22/21 08:29 Medications Medications Current Medications Acetaminophen (Acetaminophen 325 Mg Tablet) 650 mg PO Q6H PRN PRN Reason: Headache/Pain Mild Scale (1-3) Last Admin: 12/04/21 01:52 Dose: 650 mg Documented by: Al Hydroxide/Mg Hydroxide (Magnesium Hydrox/Alum Hydrox 30 Ml Oral.Susp) 30 ml PO Q6H PRN PRN Reason: Heartburn/Nausea Albuterol Sulfate (Albuterol Sulfate 90 Mcg 8 Gm Inhaler) 2 puff INHALE RQ4H PRN PRN Reason: bronchospasm Atorvastatin Calcium (Atorvastatin Calcium 40 Mg Tablet) 40 mg PO DAILY [facility] Last Admin: 12/04/21 08:16 Dose: 40 mg Documented by: Dicyclomine HCl (Dicyclomine Hcl 10 Mg Capsule) 20 mg PO TID PRN PRN Reason: for pain Last Admin: 11/28/21 15:48 Dose: 20 mg Documented by: Divalproex Sodium (Divalproex Sodium 500 Mg Tablet.) 500 mg PO BID [facility] Last Admin: 12/04/21 08:15 Dose: 500 mg Documented by: Finasteride (Finasteride 5 Mg Tablet) 5 mg PO DAILY [facility] Last Admin: 12/04/21 08:15 Dose: 5 mg Documented by: Furosemide (Furosemide 20 Mg Tablet) 20 mg PO DAILY [facility]; Protocol Last Admin: 12/04/21 08:15 Dose: 20 mg Documented by: Hydroxyzine HCl (Hydroxyzine Hcl 25 Mg Tablet) 25 mg PO Q6H PRN PRN Reason: Anxiety Last Admin: 12/04/21 01:52 Dose: 25 mg Documented by: Levothyroxine Sodium (Levothyroxine Sodium 200 Mcg Tablet) 200 mcg PO DAILY@0600 [facility] Last Admin: 12/04/21 05:24 Dose: 200 mcg Documented by: Losartan Potassium (Losartan Potassium 50 Mg Tablet) 50 mg PO DAILY [facility]; P rotocol Last Admin: 12/04/21 08:16 Dose: 50 mg Documented by: Magnesium Hydroxide (Milk Of Magnesia 30 Ml Oral.Susp) 30 ml PO DAILY PRN PRN Reason: Constipation Last Admin: 11/23/21 07:53 Dose: 30 ml Documented by: Omeprazole (Omeprazole 20 Mg Capsule.Dr) 20 mg PO DAILY@0630 [facility] Last Admin: 12/04/21 05:24 Dose: 20 mg Documented by: Potassium Chloride (Potassium Chloride Er 20 Meq Tab.Er.Prt) 20 meq PO DAILY [facility] Last Admin: 12/04/21 08:15 Dose: 20 meq Documented by: Risperidone (Risperidone 2 Mg Tablet) 4 mg PO BEDTIME [facility] Last Admin: 12/03/21 20:24 Dose: Not Given Documented by: Risperidone (Risperidone 2 Mg Tablet) 2 mg PO DAILY [facility] Last Admin: 12/04/21 08:15 Dose: 2 mg Documented by: Tamsulosin HCl (Tamsulosin Hcl 0.4 Mg Capsule) 0.4 mg PO DAILY [facility] Last Admin: 12/04/21 08:16 Dose: 0.4 mg Documented by: Trazodone HCl (Trazodone Hcl 50 Mg Tablet) 50 mg PO BEDTIME PRN PRN Reason: Insomnia Last Admin: 12/04/21 01:52 Dose: 50 mg Documented by: Allergies Allergies Allergy/AdvReac Type Severity Reaction Status Date / Time lisinopril [LISINOPRIL] Allergy Intermediate RASH Verified 11/20/21 09:39 Assessment & Plan Assessment & Plan (1) Bipolar 1 disorder: Status: Acute Code(s): F31.9 - Bipolar disorder, unspecified Assessment and Plan: Ct VPA/ Risp (2) Acute UTI: Status: Acute Code(s): N39.0 - Urinary tract infection, site not specified Assessment and Plan: On antibiotics (3) Dementia: Status: Acute Code(s): F03.90 - Unspecified dementia without behavioral disturbance Plan The patient is a 71-year-old male with a long history of bipolar disorder and psychosis admitted for exacerbation of psychotic symptoms in the context of noncompliance. Plan 1. Continue Risperdal up to 6 mg a day. 2. He has been filed for Section 7 and 8 we will wait for the hearing. 3. We will consider Invega Sustenna to assure compliance. I spent minutes with the patient and/or on the patient floor today, greater than?50% of which was spent counseling/coordinating care. Reason for contiued inpatient stay Substantial Risk for: inability to function, rapid decompensation and med/psych decompensation
[2021-12-04 18:00] VITALS: BP 173/76; PULSE 60; RESP 18; TEMP 36; O2SAT 98
[2021-12-04] MEDS: risperiDONE 2 MG TABLET 4 MG PO (20:25)
[2021-12-05] MEDS: Omeprazole 20 MG CAPSULE.DR PO (05:54)
[2021-12-05] MEDS: Levothyroxine Sodium 200 MCG TABLET PO (05:54)
[2021-12-05] MEDS: Acetaminophen 325 MG TABLET 650 MG PO (05:54)
[2021-12-05 07:50] VITALS: BP 125/67; PULSE 65; RESP 18; TEMP 36.7; O2SAT 98
[2021-12-05] MEDS: Finasteride 5 MG TABLET PO (09:23)
[2021-12-05] MEDS: Furosemide 20 MG TABLET PO (09:23)
[2021-12-05] MEDS: Losartan Potassium 50 MG TABLET PO (09:23)
[2021-12-05] MEDS: Atorvastatin Calcium 40 MG TABLET PO (09:23)
[2021-12-05] MEDS: risperiDONE 2 MG TABLET PO (09:23)
[2021-12-05] MEDS: Potassium Chloride ER 20 MEQ TAB.ER.PRT PO (09:23)
[2021-12-05] MEDS: Tamsulosin HCL 0.4 MG CAPSULE PO (09:23)
[2021-12-05] MEDS: Divalproex Sodium 500 MG TABLET.DR PO (09:23)
[2021-12-05] MEDS: Paliperidone Palmitate 234 MG/1.5 ML SYRINGE IM (13:55)
--- NOTE | 2021-12-05 16:22 | P.PNPSI_ITS ---
Subjective Subjective Date of Service: 12/05/21 Reason For Visit: Delusional Subjective Notes: Section 12B ( filed for Section 7 and 8) Interim History: the nursing staff reported that the patient has been isolative, asking for his discharge frequently. Today with his mother and nursing staff he agreed to take Invega Sustenna instead of Risperdal. We had a meeting with his mother and the patient and he agreed to take a 2nd injection of Invega Sustenna and Thursday and being discharged. According to the staff that notion from previous admissions, he looks like being at baseline. On physical exam, it was evident that the patient has EPS. Mental Status Exam Mental Status Exam Patient Appearance: Disheveled and Unkempt Patient Orientation: Person Level of Consciousness: Awake Patient Behavior: Guarded and Suspicious Mood Description: Constricted Affect Description: Labile Patient Cognition Impaired: Yes Ability to Follow Directions: Good Speech Pattern: Appropriate and Loud Hallucinations: None Delusions: Paranoid Ideation Thought Process: Illogical Thought Content: positive for Circumstantial, positive for Poverty of Content and positive for Loose Associations Judgement: Poor Diagnostics Vital Signs (24Hr): Vital Signs - 24 hr 12/04/21 18:00 12/05/21 07:50 Temperature 96.8 F 98.0 F Pulse Rate 60 65 Respiratory Rate 18 18 Blood Pressure 173/76 H 125/67 Pulse Oximetry 98 98 BMI result Body Mass Index 29.4 Labs Results: 11/22/21 08:29 11/22/21 08:29 Medications Medications Current Medications Acetaminophen (Acetaminophen 325 Mg Tablet) 650 mg PO Q6H PRN PRN Reason: Headache/Pain Mild Scale (1-3) Last Admin: 12/05/21 05:54 Dose: 650 mg Documented by: Al Hydroxide/Mg Hydroxide (Magnesium Hydrox/Alum Hydrox 30 Ml Oral.Susp) 30 ml PO Q6H PRN PRN Reason: Heartburn/Nausea Albuterol Sulfate (Albuterol Sulfate 90 Mcg 8 Gm Inhaler) 2 puff INHALE RQ4H PRN PRN Reason: bronchospasm Atorvastatin Calcium (Atorvastatin Calcium 40 Mg Tablet) 40 mg PO DAILY [facility] Last Admin: 12/05/21 09:23 Dose: 40 mg Documented by: Dicyclomine HCl (Dicyclomine Hcl 10 Mg Capsule) 20 mg PO TID PRN PRN Reason: for pain Last Admin: 11/28/21 15:48 Dose: 20 mg Documented by: Divalproex Sodium (Divalproex Sodium 500 Mg Tablet.) 500 mg PO BID [facility] Last Admin: 12/05/21 09:23 Dose: 500 mg Documented by: Finasteride (Finasteride 5 Mg Tablet) 5 mg PO DAILY [facility] Last Admin: 12/05/21 09:23 Dose: 5 mg Documented by: Furosemide (Furosemide 20 Mg Tablet) 20 mg PO DAILY [facility]; Protocol Last Admin: 12/05/21 09:23 Dose: 20 mg Documented by: Hydroxyzine HCl (Hydroxyzine Hcl 25 Mg Tablet) 25 mg PO Q6H PRN PRN Reason: Anxiety Last Admin: 12/04/21 01:52 Dose: 25 mg Documented by: Levothyroxine Sodium (Levothyroxine Sodium 200 Mcg Tablet) 200 mcg PO DAILY@0600 [facility] Last Admin: 12/05/21 05:54 Dose: 200 mcg Documented by: Losartan Potassium (Losartan Potassium 50 Mg Tablet) 50 mg PO DAILY [facility]; Protocol Last Admin: 12/05/21 09:23 Dose: 50 mg Documented by: Magnesium Hydroxide (Milk Of Magnesia 30 Ml Oral.Susp) 30 ml PO DAILY PRN PRN Reason: Constipation Last Admin: 11/23/21 07:53 Dose: 30 ml Documented by: Omeprazole (Omeprazole 20 Mg Capsule.) 20 mg PO DAILY@0630 [facility] Last Admin: 12/05/21 05:54 Dose: 20 mg Documented by: Potassium Chloride (Potassium Chloride Er 20 Meq Tab.Er.Prt) 20 meq PO DAILY [facility] Last Admin: 12/05/21 09:23 Dose: 20 meq Documented by: Tamsulosin HCl (Tamsulosin Hcl 0.4 Mg Capsule) 0.4 mg PO DAILY [facility] Last Admin: 12/05/21 09:23 Dose: 0.4 mg Documented by: Trazodone HCl (Trazodone Hcl 50 Mg Tablet) 50 mg PO BEDTIME PRN PRN Reason: Insomnia Last Admin: 12/04/21 23:56 Dose: 50 mg Documented by: Allergies Allergies Allergy/AdvReac Type Severity Reaction Status Date / Time lisinopril [LISINOPRIL] Allergy Intermediate RASH Verified 11/20/21 09:39 Assessment & Plan Assessment & Plan (1) Bipolar 1 disorder: Status: Acute Code(s): F31.9 - Bipolar disorder, unspecified Assessment and Plan: Ct VPA/ Risp (2) Acute UTI: Status: Acute Code(s): N39.0 - Urinary tract infection, site not specified Assessment and Plan: On antibiotics (3) Dementia: Status: Acute Code(s): F03.90 - Unspecified dementia without behavioral disturbance Plan The patient is a 71-year-old male with a long history of bipolar d isorder and psychosis admitted for exacerbation of psychotic symptoms in the context of noncompliance. Plan 1. Continue Risperdal up to 6 mg a day. 2. He has been filed for Section 7 and 8 we will wait for the hearing. 3. We will Get the 2nd dose of her Invega Sustenna next Thursday before d ischarge. I spent minutes with the patient and/or on the patient floor today, greater than?50% of which was spent counseling/coordinating care. Reason for contiued inpatient stay Substantial Risk for: inability to function, rapid decompensation and med/psych decompensation
[2021-12-05 19:52] VITALS: BP 163/82; PULSE 60; RESP 19; TEMP 36.8; O2SAT 96
--- NOTE | 2021-12-06 03:41 | PC.NURSE ---
awake throughout the night. has traveled between [facility] and his room. pt has been agitated and has requested that he be brought a wheelchair and be dischaargd, he is not redirected and is focused on antrum of the unit. he has refused his medications and will not wear red fall prone socks. pt has rigid muscle tone with tremor. he has been encouraged to sleep until morning but is resistant to these suggestions. currently he is seated in the [facility] conversing with another patient.
[2021-12-06 06:00] VITALS: BP 172/81; PULSE 69; RESP 14; TEMP 36.7; O2SAT 96
[2021-12-06] MEDS: Omeprazole 20 MG CAPSULE.DR PO (06:29)
[2021-12-06] MEDS: Levothyroxine Sodium 200 MCG TABLET PO (06:29)
[2021-12-06] MEDS: Acetaminophen 325 MG TABLET 650 MG PO ×2 (11:21→23:57)
--- NOTE | 2021-12-06 14:23 | P.PNPSI_ITS ---
Subjective Subjective Date of Service: 12/06/21 Reason For Visit: Delusional Subjective Notes: Section 12B Interim History: the nursing staff reported the patient took his Invega Sustenna shot yesterday with the help of his mother. He has refused all his p.o. medications since he understood that he does not have to take any medications if he has injection. He has other medical problems and we tried to explain him that he needs to take his blood pressure meds but he did not want to cooperate. On interview, the patient demanded to be discharged today. He could not remember that we agreed for discharge for next Thursday and he was even threatening but easily redirectable Mental Status Exam Mental Status Exam Patient Appearance: Well Grooomed Patient Orientation: Person and Situation Level of Consciousness: Awake Patient Behavior: Restless and Belligerent Mood Description: Labile Affect Description: Constricted Patient Cognition Impaired: Yes Ability to Follow Directions: Fair Speech Pattern: Garbled and Aphasic Hallucinations: Auditory Delusions: Grandiose Thought Process: Illogical and Evasive Thought Content: positive for Perseveration, positive for Poverty of Content and positive for Thought Blocking Judgement: Poor Diagnostics Vital Signs (24Hr): Vital Signs - 24 hr 12/05/21 19:52 12/06/21 06:00 Temperature 98.3 F 98.1 F Pulse Rate 60 69 Respiratory Rate 19 14 Blood Pressure 163/82 H 172/81 H Pulse Oximetry 96 96 BMI result Body Mass Index 29.4 Labs Results: 11/22/21 08:29 11/22/21 08:29 Medications Medications Current Medications Acetaminophen (Acetaminophen 325 Mg Tablet) 650 mg PO Q6H PRN PRN Reason: Headache/Pain Mild Scale (1-3) Last Admin: 12/06/21 11:21 Dose: 650 mg Documented by: Al Hydroxide/Mg Hydroxide (Magnesium Hydrox/Alum Hydrox 30 Ml Oral.Susp) 30 ml PO Q6H PRN PRN Reason: Heartburn/Nausea Albuterol Sulfate (Albuterol Sulfate 90 Mcg 8 Gm Inhaler) 2 puff INHALE RQ4H PRN PRN Reason: bronchospasm Atorvastatin Calcium (Atorvastatin Calcium 40 Mg Tablet) 40 mg PO DAILY [facility] Last Admin: 12/06/21 10:45 Dose: Not Given Documented by: Dicyclomine HCl (Dicyclomine Hcl 10 Mg Capsule) 20 mg PO TID PRN PRN Reason: for pain Last Admin: 11/28/21 15:48 Dose: 20 mg Documented by: Divalproex Sodium (Divalproex Sodium 500 Mg Tablet.) 500 mg PO BID [facility] Last Admin: 12/06/21 10:45 Dose: Not Given Documented by: Finasteride (Finasteride 5 Mg Tablet) 5 mg PO DAILY [facility] Last Admin: 12/06/21 10:45 Dose: Not Given Documented by: Furosemide (Furosemide 20 Mg Tablet) 20 mg PO DAILY [facility]; Protocol Last Admin: 12/06/21 10:45 Dose: Not Given Documented by: Hydroxyzine HCl (Hydroxyzine Hcl 25 Mg Tablet) 25 mg PO Q6H PRN PRN Reason: Anxiety Last Admin: 12/04/21 01:52 Dose: 25 mg Documented by: Levothyroxine Sodium (Levothyroxine Sodium 200 Mcg Tablet) 200 mcg PO DAILY@0600 [facility] Last Admin: 12/06/21 06:29 Dose: 200 mcg Documented by: Losartan Potassium (Losartan Potassium 50 Mg Tablet) 50 mg PO DAILY [facility]; Protocol Last Admin: 12/06/21 10:45 Dose: Not Given Documented by: Magnesium Hydroxide (Milk Of Magnesia 30 Ml Oral.Susp) 30 ml PO DAILY PRN PRN Reason: Constipation Last Admin: 11/23/21 07:53 Dose: 30 ml Documented by: Omeprazole (Omeprazole 20 Mg Capsule.) 20 mg PO DAILY@0630 [facility] Last Admin: 12/06/21 06:29 Dose: 20 mg Documented by: Potassium Chloride (Potassium Chloride Er 20 Meq Tab.Er.Prt) 20 meq PO DAILY [facility] Last Admin: 12/06/21 10:46 Dose: Not Given Documented by: Tamsulosin HCl (Tamsulosin Hcl 0.4 Mg Capsule) 0.4 mg PO DAILY [facility] Last Admin: 12/06/21 10:46 Dose: Not Given Documented by: Trazodone HCl (Trazodone Hcl 50 Mg Tablet) 50 mg PO BEDTIME PRN PRN Reason: Insomnia Last Admin: 12/04/21 23:56 Dose: 50 mg Documented by: Allergies Allergies Allergy/AdvReac Type Severity Reaction Status Date / Time lisinopril [LISINOPRIL] Allergy Intermediate RASH Verified 11/20/21 09:39 Assessment & Plan Assessment & Plan (1) Bipolar 1 disorder: Status: Acute Code(s): F31.9 - Bipolar disorder, unspecified Assessment and Plan: Ct VPA/ Risp (2) Acute UTI: Status: Acute Code(s): N39.0 - Urinary tract infection, site not specified Assessment and Plan: On antibiotics (3) Dementia: Status: Acute Code(s): F03.90 - Unspecified dementia without behavioral disturbance Plan The patient is a 71-year-old male with a long history of bipolar disorder and psychosis admitted for exacerbation of psychotic symptoms in the context of noncompliance. Plan 1. discontinue Risperdal 6 mg a day. 2. He has been filed for Section 7 and 8 we will wait for the hearing. 3. We will Get the 2nd dose of her Invega Sustenna next Thursday before discharge. I spent minutes with the patient and/or on the patient floor today, greater than?50% of which was spent counseling/coordinating care. Reason for contiued inpatient stay Substantial Risk for: inability to function, rapid decompensation and med/psych decompensation
--- NOTE | 2021-12-06 14:42 | PC.NURSE ---
Pt. refused AM medications despice education and encouragement. He was verbally abusive and threatening with each approach.
[2021-12-06 18:00] VITALS: RESP 16
[2021-12-06] MEDS: Fluticasone Propionate Nasal 16 GM SPRAY 1 SPRAY NOSTRIL-B (22:09)
[2021-12-06] MEDS: Divalproex Sodium 500 MG TABLET.DR PO (22:10)
[2021-12-06] MEDS: hydrOXYzine HCL 25 MG TABLET PO (22:10)
[2021-12-06] MEDS: Dicyclomine HCl 10 MG CAPSULE 20 MG PO (23:56)
[2021-12-06] MEDS: traZODone HCL 50 MG TABLET PO (23:57)
[2021-12-07 06:00] VITALS: BP 113/57; PULSE 52; TEMP 36.1; O2SAT 97
[2021-12-07] MEDS: Dicyclomine HCl 10 MG CAPSULE 20 MG PO (06:37)
[2021-12-07] MEDS: Acetaminophen 325 MG TABLET 650 MG PO (06:38)
[2021-12-07] MEDS: Omeprazole 20 MG CAPSULE.DR PO (06:38)
[2021-12-07] MEDS: Levothyroxine Sodium 200 MCG TABLET PO (06:38)
[2021-12-07] MEDS: Tamsulosin HCL 0.4 MG CAPSULE PO (08:28)
[2021-12-07] MEDS: Losartan Potassium 50 MG TABLET PO (08:28)
[2021-12-07] MEDS: Divalproex Sodium 500 MG TABLET.DR PO (08:28)
[2021-12-07] MEDS: Potassium Chloride ER 20 MEQ TAB.ER.PRT PO (08:28)
[2021-12-07] MEDS: Furosemide 20 MG TABLET PO (08:28)
[2021-12-07] MEDS: Atorvastatin Calcium 40 MG TABLET PO (08:28)
[2021-12-07] MEDS: Finasteride 5 MG TABLET PO (08:30)
[2021-12-07] MEDS: hydrOXYzine HCL 25 MG TABLET PO (10:10)
[2021-12-07] MEDS: LORazepam 1 MG TABLET PO (11:27)
--- NOTE | 2021-12-07 11:52 | HO.PSYCHPN ---
Subjective Subjective Date of Service: 12/07/21 Reason For Visit: Delusional Interim History: pt reports he is doing fine, no complaints or requests other than to discharge prior to thursday, which is his current scheduled discharge date. declines to modify dispo plan. looking forward to thursday the, no other requests. per staff, late rin the morning pt c/o anxiety and asking for ativan; 1 mg ordered x1. plan is for thursday DC. easily agitated. med-compliant. getting invega injections. occasionally testing exit doors. Mental Status Exam Mental Status Exam Narrative: adequately dressed and groomed. cooperative. speech nml rate, amount, latency; odd rhythm. thoughts linear and logical. affect flexible, appropriate. no SI/HI/AVH expressed. Diagnostics Vital Signs (24Hr): Vital Signs - 24 hr 12/06/21 18:00 12/07/21 06:00 Temperature 97.0 F Pulse Rate 52 Respiratory Rate 16 Blood Pressure 113/57 L Pulse Oximetry 97 BMI result Body Mass Index 29.4 Labs Results: 11/22/21 08:29 11/22/21 08:29 Medications Medications Current Medications Acetaminophen (Acetaminophen 325 Mg Tablet) 650 mg PO Q6H PRN PRN Reason: Headache/Pain Mild Scale (1-3) Last Admin: 12/07/21 06:38 Dose: 650 mg Documented by: Al Hydroxide/Mg Hydroxide (Magnesium Hydrox/Alum Hydrox 30 Ml Oral.Susp) 30 ml PO Q6H PRN PRN Reason: Heartburn/Nausea Albuterol Sulfate (Albuterol Sulfate 90 Mcg 8 Gm Inhaler) 2 puff INHALE RQ4H PRN PRN Reason: bronchospasm Atorvastatin Calcium (Atorvastatin Calcium 40 Mg Tablet) 40 mg PO DAILY [facility] Last Admin: 12/07/21 08:28 Dose: 40 mg Documented by: Dicyclomine HCl (Dicyclomine Hcl 10 Mg Capsule) 20 mg PO TID PRN PRN Reason: for pain Last Admin: 12/07/21 06:37 Dose: 20 mg Documented by: Divalproex Sodium (Divalproex Sodium 500 Mg Tablet.) 500 mg PO BID [facility] Last Admin: 12/07/21 08:28 Dose: 500 mg Documented by: Finasteride (Finasteride 5 Mg Tablet) 5 mg PO DAILY [facility] Last Admin: 12/07/21 08:30 Dose: 5 mg Documented by: Fluticasone Propionate (Fluticasone Propionate Nasal 16 Gm [place]) 1 spray NOSTRIL-B BID [facility] Last Admin: 12/06/21 22:09 Dose: 1 spray Documented by: Furosemide (Furosemide 20 Mg Tablet) 20 mg PO DAILY [facility]; Protocol Last Admin: 12/07/21 08:28 Dose: 20 mg Documented by: Hydroxyzine HCl (Hydroxyzine Hcl 25 Mg Tablet) 25 mg PO Q6H PRN PRN Reason: Anxiety Last Admin: 12/07/21 10:10 Dose: 25 mg Documented by: Levothyroxine Sodium (Levothyroxine Sodium 200 Mcg Tablet) 200 mcg PO DAILY@0600 [facility] Last Admin: 12/07/21 06:38 Dose: 200 mcg Documented by: Losartan Potassium (Losartan Potassium 50 Mg Tablet) 50 mg PO DAILY [facility]; Protocol Last Admin: 12/07/21 08:28 Dose: 50 mg Documented by: Magnesium Hydroxide (Milk Of Magnesia 30 Ml Oral.Susp) 30 ml PO DAILY PRN PRN Reason: Constipation Last Admin: 11/23/21 07:53 Dose: 30 ml Documented by: Omeprazole (Omeprazole 20 Mg Capsule.Dr) 20 mg PO DAILY@0630 [facility] Last Admin: 12/07/21 06:38 Dose: 20 mg Documented by: Potassium Chloride (Potassium Chloride Er 20 Meq Tab.Er.Prt) 20 meq PO DAILY [facility] Last Admin: 12/07/21 08:28 Dose: 20 meq Documented by: Tamsulosin HCl (Tamsulosin Hcl 0.4 Mg Capsule) 0.4 mg PO DAILY [facility] Last Admin: 12/07/21 08:28 Dose: 0.4 mg Documented by: Trazodone HCl (Trazodone Hcl 50 Mg Tablet) 50 mg PO BEDTIME PRN PRN Reason: Insomnia Last Admin: 12/06/21 23:57 Dose: 50 mg Documented by: Allergies Allergies Allergy/AdvReac Type Severity Reaction Status Date / Time lisinopril [LISINOPRIL] Allergy Intermediate RASH Verified 11/20/21 09:39 Assessment & Plan Assessment & Plan (1) Bipolar 1 disorder: Status: Acute Code(s): F31.9 - Bipolar disorder, unspecified Assessment and Plan: Ct VPA/ Risp (2) Acute UTI: Status: Acute Code(s): N39.0 - Urinary tract infection, site not specified Assessment and Plan: On antibiotics (3) Dementia: Status: Acute Code(s): F03.90 - Unspecified dementia without behavioral disturbance Plan The patient is a 71-year-old male with a long history of bipolar disorder and psychosis admitted for exacerbation of psychotic symptoms in the context of noncompliance. Plan 1. discontinue Risperdal 6 mg a day. 2. We will Get the 2nd dose of his Invega Sustenna next Thursday before discharge. I spent minutes with the patient and/or on the patient floor today, greater than?50% of which was spent counseling/coordinating care. Reason for contiued inpatient stay Substantial Risk for: inability to function and rapid decompensation
[2021-12-07 18:00] VITALS: BP 107/51; PULSE 61; RESP 19; TEMP 36.8; O2SAT 95
[2021-12-08] MEDS: Divalproex Sodium 500 MG TABLET.DR PO ×2 (00:38→08:26)
[2021-12-08] MEDS: LORazepam 1 MG TABLET PO ×2 (00:38→11:09)
[2021-12-08] MEDS: Fluticasone Propionate Nasal 16 GM SPRAY 1 SPRAY NOSTRIL-B (00:41)
[2021-12-08 01:06] VITALS: BP 109/45; PULSE 50; RESP 18; TEMP 36.3; O2SAT 96
--- NOTE | 2021-12-08 01:42 | PC.NURSE ---
pt awake/compliant. states he is going scuba diving in the [facility] with Nathalie next week. pt has c/o of insomnia and ears popping. states i think i have an ear infection. hands tremulous. lower extremities stiff with decreased rom. vital signs checked t. 97.4 p. 50 bpm rr 16 b/p 109/45 sao2 96%. flonase nasal spray 1 spray per nostril. encouraged to blow nose. ativan 1 mg po for anxiety.
[2021-12-08] MEDS: Levothyroxine Sodium 200 MCG TABLET PO (06:02)
[2021-12-08] MEDS: Omeprazole 20 MG CAPSULE.DR PO (06:02)
[2021-12-08] MEDS: Finasteride 5 MG TABLET PO (08:26)
[2021-12-08] MEDS: Furosemide 20 MG TABLET PO (08:26)
[2021-12-08] MEDS: Tamsulosin HCL 0.4 MG CAPSULE PO (08:26)
[2021-12-08] MEDS: Atorvastatin Calcium 40 MG TABLET PO (08:26)
[2021-12-08] MEDS: Losartan Potassium 50 MG TABLET PO (08:26)
[2021-12-08] MEDS: Potassium Chloride ER 20 MEQ TAB.ER.PRT PO (08:26)
--- NOTE | 2021-12-08 11:30 | HO.PSYCHPN ---
Subjective Subjective Date of Service: 12/08/21 Reason For Visit: Delusional Interim History: pt found standing in his room. pleasant, agreeable to interview. asking for discharge today, informed he will need to wait until thursday. discuss his anxiety a bit, as he has received ativan 1 mg x2 in the past day. he says he is having anxiety from being cooped up here. suggests MD watch channel 3 news tonight bcse he might be on the news, something about his garage in [place]. per staff, slept well overnight. got ativan 1 mg x2 roge/NOC. c/o anxiety. med-compliant. got another ativan 1 mg for anxiety this morning, observed to be standing at entrance doors muttering to himself. Mental Status Exam Mental Status Exam Narrative: adequately dressed and groomed. cooperative. speech nml rate, amount, latency; odd rhythm. thoughts linear and illogical. affect flexible, appropriate. no SI/HI/AVH expressed. Diagnostics Vital Signs (24Hr): Vital Signs - 24 hr 12/07/21 18:00 12/08/21 01:06 Temperature 98.3 F 97.4 F Pulse Rate 61 50 Respiratory Rate 19 18 Blood Pressure 107/51 L 109/45 L Pulse Oximetry 95 96 BMI result Body Mass Index 29.4 Labs Results: 11/22/21 08:29 11/22/21 08:29 Medications Medications Current Medications Acetaminophen (Acetaminophen 325 Mg Tablet) 650 mg PO Q6H PRN PRN Reason: Headache/Pain Mild Scale (1-3) Last Admin: 12/07/21 06:38 Dose: 650 mg Documented by: Al Hydroxide/Mg Hydroxide (Magnesium Hydrox/Alum Hydrox 30 Ml Oral.Susp) 30 ml PO Q6H PRN PRN Reason: Heartburn/Nausea Albuterol Sulfate (Albuterol Sulfate 90 Mcg 8 Gm Inhaler) 2 puff INHALE RQ4H PRN PRN Reason: bronchospasm Atorvastatin Calcium (Atorvastatin Calcium 40 Mg Tablet) 40 mg PO DAILY [facility] Last Admin: 12/08/21 08:26 Dose: 40 mg Documented by: Dicyclomine HCl (Dicyclomine Hcl 10 Mg Capsule) 20 mg PO TID PRN PRN Reason: for pain Last Admin: 12/07/21 06:37 Dose: 20 mg Documented by: Divalproex Sodium (Divalproex Sodium 500 Mg Tablet.) 500 mg PO BID [facility] Last Admin: 12/08/21 08:26 Dose: 500 mg Documented by: Finasteride (Finasteride 5 Mg Tablet) 5 mg PO DAILY [facility] Last Admin: 12/08/21 08:26 Dose: 5 mg Documented by: Fluticasone Propionate (Fluticasone Propionate Nasal 16 Gm [place]) 1 spray NOSTRIL-B BID [facility] Last Admin: 12/08/21 10:57 Dose: Not Given Documented by: Furosemide (Furosemide 20 Mg Tablet) 20 mg PO DAILY [facility]; Protocol Last Admin: 12/08/21 08:26 Dose: 20 mg Documented by: Hydroxyzine HCl (Hydroxyzine Hcl 25 Mg Tablet) 25 mg PO Q6H PRN PRN Reason: Anxiety Last Admin: 12/07/21 10:10 Dose: 25 mg Documented by: Levothyroxine Sodium (Levothyroxine Sodium 200 Mcg Tablet) 200 mcg PO DAILY@0600 [facility] Last Admin: 12/08/21 06:02 Dose: 200 mcg Documented by: Losartan Potassium (Losartan Potassium 50 Mg Tablet) 50 mg PO DAILY [facility]; Protocol Last Admin: 12/08/21 08:26 Dose: 50 mg Documented by: Magnesium Hydroxide (Milk Of Magnesia 30 Ml Oral.Susp) 30 ml PO DAILY PRN PRN Reason: Constipation Last Admin: 11/23/21 07:53 Dose: 30 ml Documented by: Omeprazole (Omeprazole 20 Mg Capsule.) 20 mg PO DAILY@0630 [facility] Last Admin: 12/08/21 06:02 Dose: 20 mg Documented by: Potassium Chloride (Potassium Chloride Er 20 Meq Tab.Er.Prt) 20 meq PO DAILY [facility] Last Admin: 12/08/21 08:26 Dose: 20 meq Documented by: Tamsulosin HCl (Tamsulosin Hcl 0.4 Mg Capsule) 0.4 mg PO DAILY [facility] Last Admin: 12/08/21 08:26 Dose: 0.4 mg Documented by: Trazodone HCl (Trazodone Hcl 50 Mg Tablet) 50 mg PO BEDTIME PRN PRN Reason: Insomnia Last Admin: 12/06/21 23:57 Dose: 50 mg Documented by: Allergies Allergies Allergy/AdvReac Type Severity Reaction Status Date / Time lisinopril [LISINOPRIL] Allergy Intermediate RASH Verified 11/20/21 09:39 Assessment & Plan Assessment & Plan (1) Bipolar 1 disorder: Status: Acute Code(s): F31.9 - Bipolar disorder, unspecified Assessment and Plan: Ct VPA/ Risp (2) Acute UTI: Status: Acute Code(s): N39.0 - Urinary tract infection, site not specified Assessment and Plan: On antibiotics (3) Dementia: Status: Acute Code(s): F03.90 - Unspecified dementia without behavioral disturbance Plan The patient is a 71-year-old male with a long history of bipolar disorder and psychosis admitted for exacerbation of psychotic symptoms in the context of noncompliance. Plan 1. discontinue Risperdal 6 mg a day. 2. We will Get the 2nd dose of his Invega Sustenna next Thursday before discharge. I spent minutes with the patient and/or on the patient floor today, greater than?50% of which was spent counseling/coordinating care. Reason for contiued inpatient stay Substantial Risk for: inability to function and rapid decompensation
[2021-12-09] MEDS: Levothyroxine Sodium 200 MCG TABLET PO (06:12)
[2021-12-09] MEDS: Omeprazole 20 MG CAPSULE.DR PO (06:12)
[2021-12-09] MEDS: Divalproex Sodium 500 MG TABLET.DR PO ×2 (09:26→20:04)
[2021-12-09] MEDS: Tamsulosin HCL 0.4 MG CAPSULE PO (09:26)
[2021-12-09] MEDS: Atorvastatin Calcium 40 MG TABLET PO (09:27)
[2021-12-09] MEDS: Finasteride 5 MG TABLET PO (09:27)
[2021-12-09] MEDS: Losartan Potassium 50 MG TABLET PO (09:27)
[2021-12-09] MEDS: Potassium Chloride ER 20 MEQ TAB.ER.PRT PO (09:27)
[2021-12-09] MEDS: Furosemide 20 MG TABLET PO (09:27)
[2021-12-09 09:33] VITALS: BP 110/66; PULSE 64; RESP 16; TEMP 36.4; O2SAT 97
[2021-12-09] MEDS: hydrOXYzine HCL 25 MG TABLET PO ×2 (12:32→19:51)
[2021-12-09] MEDS: traZODone HCL 50 MG TABLET PO (19:51)
--- NOTE | 2021-12-09 19:55 | HO.PSYCHPN ---
Subjective Subjective Date of Service: 12/09/21 Reason For Visit: Delusional Interim History: pt asks to be discharged. pt is informed that primary team will meet with him tomorrow on the topic, to which he responds, i won't be here, meaning he will have discharged by then. generally pleasant despite our differences in thoughts about discharge. pt states that everything is fine aside from his continuing to be in the hospital. per staff, asking for discharge. planning to get the second invega sustenna shot tomorrow. Mental Status Exam Mental Status Exam Narrative: adequately dressed and groomed. cooperative. speech nml rate, amount, latency; odd rhythm. thoughts linear and illogical. affect flexible, appropriate. no SI/HI/AVH expressed. Diagnostics Vital Signs (24Hr): Vital Signs - 24 hr 12/09/21 09:33 Temperature 97.6 F Pulse Rate 64 Respiratory Rate 16 Blood Pressure 110/66 Pulse Oximetry 97 BMI result Body Mass Index 29.4 Labs Results: 11/22/21 08:29 11/22/21 08:29 Medications Medications Current Medications Acetaminophen (Acetaminophen 325 Mg Tablet) 650 mg PO Q6H PRN PRN Reason: Headache/Pain Mild Scale (1-3) Last Admin: 12/07/21 06:38 Dose: 650 mg Documented by: Al Hydroxide/Mg Hydroxide (Magnesium Hydrox/Alum Hydrox 30 Ml Oral.Susp) 30 ml PO Q6H PRN PRN Reason: Heartburn/Nausea Albuterol Sulfate (Albuterol Sulfate 90 Mcg 8 Gm Inhaler) 2 puff INHALE RQ4H PRN PRN Reason: bronchospasm Atorvastatin Calcium (Atorvastatin Calcium 40 Mg Tablet) 40 mg PO DAILY [facility] Last Admin: 12/09/21 09:27 Dose: 40 mg Documented by: Dicyclomine HCl (Dicyclomine Hcl 10 Mg Capsule) 20 mg PO TID PRN PRN Reason: for pain Last Admin: 12/07/21 06:37 Dose: 20 mg Documented by: Divalproex Sodium (Divalproex Sodium 500 Mg Tablet.) 500 mg PO BID [facility] Last Admin: 12/09/21 09:26 Dose: 500 mg Documented by: Finasteride (Finasteride 5 Mg Tablet) 5 mg PO DAILY [facility] Last Admin: 12/09/21 09:27 Dose: 5 mg Documented by: Fluticasone Propionate (Fluticasone Propionate Nasal 16 Gm [place]) 1 spray NOSTRIL-B BID [facility] Last Admin: 12/09/21 09:39 Dose: Not Given Documented by: Furosemide (Furosemide 20 Mg Tablet) 20 mg PO DAILY [facility]; Protocol Last Admin: 12/09/21 09:27 Dose: 20 mg Documented by: Hydroxyzine HCl (Hydroxyzine Hcl 25 Mg Tablet) 25 mg PO Q6H PRN PRN Reason: Anxiety Last Admin: 12/09/21 19:51 Dose: 25 mg Documented by: Levothyroxine Sodium (Levothyroxine Sodium 200 Mcg Tablet) 200 mcg PO DAILY@0600 [facility] Last Admin: 12/09/21 06:12 Dose: 200 mcg Documented by: Losartan Potassium (Losartan Potassium 50 Mg Tablet) 50 mg PO DAILY [facility]; Protocol Last Admin: 12/09/21 09:27 Dose: 50 mg Documented by: Magnesium Hydroxide (Milk Of Magnesia 30 Ml Oral.Susp) 30 ml PO DAILY PRN PRN Reason: Constipation Last Admin: 11/23/21 07:53 Dose: 30 ml Documented by: Omeprazole (Omeprazole 20 Mg Capsule.Dr) 20 mg PO DAILY@0630 [facility] Last Admin: 12/09/21 06:12 Dose: 20 mg Documented by: Potassium Chloride (Potassium Chloride Er 20 Meq Tab.Er.Prt) 20 meq PO DAILY [facility] Last Admin: 12/09/21 09:27 Dose: 20 meq Documented by: Tamsulosin HCl (Tamsulosin Hcl 0.4 Mg Capsule) 0.4 mg PO DAILY [facility] Last Admin: 12/09/21 09:26 Dose: 0.4 mg Documented by: Trazodone HCl (Trazodone Hcl 50 Mg Tablet) 50 mg PO BEDTIME PRN PRN Reason: Insomnia Last Admin: 12/09/21 19:51 Dose: 50 mg Documented by: Allergies Allergies Allergy/AdvReac Type Severity Reaction Status Date / Time lisinopril [LISINOPRIL] Allergy Intermediate RASH Verified 11/20/21 09:39 Assessment & Plan Assessment & Plan (1) Bipolar 1 disorder: Status: Acute Code(s): F31.9 - Bipolar disorder, unspecified Assessment and Plan: Ct VPA/ Risp (2) Acute UTI: Status: Acute Code(s): N39.0 - Urinary tract infection, site not specified Assessment and Plan: On antibiotics (3) Dementia: Status: Acute Code(s): F03.90 - Unspecified dementia without behavioral disturbance Plan The patient is a 71-year-old male with a long history of bipolar disorder and psychosis admitted for exacerbation of psychotic symptoms in the context of noncompliance. Plan 1. discontinue Risperdal 6 mg a day. 2. We will Get the 2nd dose of his Invega Sustenna next Thursday before discharge. I spent minutes with the patient and/or on the patient floor today, greater than?50% of which was spent counseling/coordinating care. Reason for contiued inpatient stay Substantial Risk for: inability to function and rapid decompensation
[2021-12-09] MEDS: Fluticasone Propionate Nasal 16 GM SPRAY 1 SPRAY NOSTRIL-B (20:04)
[2021-12-09 21:42] VITALS: BP 142/64; PULSE 56; RESP 15; TEMP 36.6; O2SAT 98
[2021-12-10] MEDS: Acetaminophen 325 MG TABLET 650 MG PO (03:46)
[2021-12-10] MEDS: Omeprazole 20 MG CAPSULE.DR PO (05:30)
[2021-12-10] MEDS: Levothyroxine Sodium 200 MCG TABLET PO (05:30)
[2021-12-10 06:00] VITALS: BP 165/81; PULSE 69; RESP 22; TEMP 36.6; O2SAT 98
[2021-12-10] MEDS: Losartan Potassium 50 MG TABLET PO (08:45)
[2021-12-10] MEDS: Tamsulosin HCL 0.4 MG CAPSULE PO (08:45)
[2021-12-10] MEDS: Divalproex Sodium 500 MG TABLET.DR PO (08:45)
[2021-12-10] MEDS: Atorvastatin Calcium 40 MG TABLET PO (08:45)
[2021-12-10] MEDS: Potassium Chloride ER 20 MEQ TAB.ER.PRT PO (08:45)
[2021-12-10] MEDS: Furosemide 20 MG TABLET PO (08:46)
--- NOTE | 2021-12-10 10:39 | HE.PHANOTE ---
Discussed with MD via [employer] message, patient received 1 dose of Invega Sustenna 234 mg on 12/05. [employer] suggests 156 mg on day 8, and in this patient with mild renal impairment, per skating rink ice maker suggested dose would be 156 mg initial dose, 117 mg on day 8, and 78 mg monthly. Provider wants to continue with 234 mg as second dose on 12/10/21.
--- NOTE | 2021-12-10 12:07 | P.DS_ITS ---
DS: Providers Provider Date of Service: 12/10/21 Date of admission: 11/22/21 19:23 Date of discharge: 12/10/21 Primary care physician: Samuel Schneider MD DS: Diagnosis Discharge Diagnosis (1) Bipolar 1 disorder: Status: Acute (2) Acute UTI: Status: Acute (3) Dementia: Status: Acute DS: Medications Discharge Medications Home Medications: Home Medications Medication Instructions Recorded Confirmed furosemide 20 mg tablet 20 mg PO DAILY 11/22/21 11/22/21 levothyroxine 200 mcg tablet 200 mcg PO DAILY 11/22/21 11/22/21 risperidone 3 mg tablet 1 tab PO BEDTIME 11/22/21 11/22/21 Previous Rx's Medication Instructions Recorded divalproex 500 mg tablet,delayed 500 mg PO BID #60 tab 04/10/21 release risperidone 1 mg tablet 1 mg PO DAILY #30 tab 04/10/21 albuterol sulfate 2.5 mg (3 mL) CONTINUOUS 07/01/21 NEBULIZATION TID PRN 30 Days #180 ml albuterol sulfate 90 mcg/actuation 2 puff INHALATION Q4-6H PRN #8.5 g 07/01/21 aerosol inhaler (ProAir HFA) losartan 50 mg tablet 50 mg PO DAILY 30 Days #30 tab 08/16/21 dicyclomine 20 mg tablet 20 mg PO TID PRN #90 tab 08/29/21 omeprazole 20 mg capsule,delayed 20 mg PO DAILY #30 cap 08/29/21 release atorvastatin 40 mg tablet 40 mg PO DAILY #90 tab 09/09/21 potassium chloride 20 mEq 20 meq PO DAILY 30 Days #30 tab 09/09/21 tablet,extended release(part/cryst) tamsulosin 0.4 mg capsule 0.4 mg PO DAILY #90 cap 09/09/21 finasteride 5 mg tablet 5 mg PO DAILY 30 Days #30 tab 09/19/21 Mental Status Exam Mental Status Exam Patient Appearance: Disheveled Patient Orientation: Person and Situation Level of Consciousness: Awake and Appropriate Patient Behavior: Cooperative Mood Description: Withdrawn Affect Description: Constricted Patient Cognition Impaired: Yes Ability to Follow Directions: Good Speech Pattern: Clear Hallucinations: Auditory Delusions: Paranoid Ideation and Grandiose Thought Process: Illogical and Evasive Thought Content: positive for Goal Oriented Judgement: Poor Data Data Completed and Pending Completed studies during hospitalization [Text1]: 11/22/21 Unknown Urine Catheterized - Straight Catheter Urine Culture - Final No growth. DS: Summary Hospital Course Hospital Course: The patient was admitted from the emergency room due to agitation, disorganized behavior and delusional stating that he needed a [place] due to urinary retention, he went to the ED several times in that week. Please see HPI and admission note for further details. On admission, he was restarted on risperidone and was titrated up to 6 mg p.o. daily. The patient was chronically delusional and agitated at times, demanding to go back to his home. We talked with his mother who is an elderly lady age 92 was very well oriented and a grade advocated of him. Risperidone was titrated up to 6 mg p.o. daily with some improvement of his agitation and delusional behavior but still, he remains delusional and it seems that it is his baseline. We contact his outpatient providers and his psychiatrist and mother agreed to change risperidone 2 long-acting injectables that he agreed. Since there were no safety concerns discharge planning was discussed with the plan to continue Invega Sustenna 234 mg once a month. Time spent discussing smoking cessation with patient: 3 to 10 minutes Status at Discharge Cognitive/behavioral status at discharge: Chronically impaired Functional status at discharge: independent ambulation Overall status at discharge: patient is back to baseline Time Spent with Patient Time attestation: Total time spent providing and/or coordinating discharge services: Time spent: Less than 30 minutes Discharge Plan Discharge Patient Disposition: Home, Self-Care Discharge Diagnosis: Bipolar disorder Traumatic brain injury Referrals: Psychiatrists @ [facility] [Other] - 12/13/21 9:30 am (Appointment scheduled with Dr. Shira Ventura on 12/13/21 @ 9:30 AM IN-OFFICE) [facility] [Other] - 3-5 Days (Referral made on 12/10/21, Please follow up if you have not been contacted in 3/5 days post discharge at [phone].) [facility] [Other] - 1 Week ([facility] will start Thursday12/11/21 or 12/12/21) Samuel Schneider MD [Primary Care Provider] - 1 Week (Discharge follow up: 12/18/21 12:45 p.m.) Discharge Medications: New divalproex 500 mg Tablet,Delayed Release (Dr/Ec) 500 mg PO BID 30 Days Qty: 60 0RF fluticasone propionate 50 mcg/actuation [place],Suspension 1 spray intranasal BID 30 Days Qty: 1 0RF Invega Sustenna 234 mg/1.5 mL syringe 234 mg IM QMONTH Qty: 1.5 0RF Continued albuterol sulfate 2.5 mg /3 mL (0.083 %) solution for nebulization 2.5 mg continuous nebulization TID PRN (Reason: Shortness Of Breath) 30 Days Qty: 180 0RF albuterol sulfate [ProAir HFA] 90 mcg/actuation HFA aerosol inhaler 2 puff inhalation Q4-6H PRN (Reason: bronchospasm) Qty: 8.5 0RF omeprazole 20 mg capsule,delayed release(DR/EC) 20 mg PO DAILY Qty: 30 3RF dicyclomine 20 mg tablet 20 mg PO TID PRN (Reason: for pain) Qty: 90 3RF atorvastatin 40 mg tablet 40 mg PO DAILY Qty: 90 1RF tamsulosin 0.4 mg capsule 0.4 mg PO DAILY Qty: 90 1RF finasteride 5 mg tablet 5 mg PO DAILY 30 Days Qty: 30 2RF furosemide 20 mg tablet 20 mg PO DAILY 0RF levothyroxine 200 mcg tablet 200 mcg PO DAILY 0RF potassium chloride 20 mEq tablet,ER particles/crystals 20 meq PO DAILY 30 Days Qty: 30 3RF Rx Instructions: to be taken together with Furosemide in the morning losartan 50 mg tablet 50 mg PO DAILY 30 Days Qty: 30 4RF Discontinued divalproex 500 mg Tablet,Delayed Release (Dr/Ec) 500 mg PO BID Qty: 60 0RF risperidone 1 mg Tablet 1 mg PO DAILY Qty: 30 0RF risperidone 3 mg tablet 1 tab PO BEDTIME 0RF Discharge Orders: Discharge Order (Routine); Ordered 12/10/21 Ordered By: Renny Barrett Diet: advance to usual diet Activity on Discharge: As tolerated Stand Alone Forms: Patient Portal Discharge page Care Plan Goals: Care plan goals achieved in this admission Health Concerns: Continue as an outpatient by primary care physician Plan of Treatment: Continue medication management and other services as an outpatient Assessment: Elderly male with a long history of bipolar disorder and traumatic brain injury with several admissions into the hospital for decompensation due to psychosis and mood lability. At this moment changed to long-acting injectable to assure compliance no safety concerns ready for discharge
--- NOTE | 2021-12-10 13:36 | PC.NURSE ---
Patient alert and oriented. Verbally expressed readiness for discharge. Visible on unit. Cooperative and compliant with meds and care. Received second dose of Invega today. Declined to review/sign discharge papaerwork. Patient is dressed appropriately for discharge. Follow p appointments made including appointment with PCP. Patient will be escorted to hospital exit by staff. He will drive himself home.
[2021-12-10] MEDS: Paliperidone Palmitate 234 MG/1.5 ML SYRINGE IM (13:41)
[2021-12-10] MEDS: Finasteride 5 MG TABLET PO (13:42)
== END 2021-12-10 14:00 | disposition home or self-care (01) | DRG 885 ==
LOC: HO.ED 12:50 → HO.PGERI 19:36
PROVIDERS: Admitting Provider Psychiatry & Neurology Psychiatry; Emergency Provider Emergency Medicine; PCP Internal Medicine; Visit Provider Psychiatry & Neurology Psychiatry
DX: F31.9 Bipolar disorder, unspecified (principal); N39.0 Urinary tract infection, site not specified; F03.90 Unspecified dementia, unspecified severity, without behavioral disturbance, psychotic disturbance, mood disturbance, and anxiety; N40.1 Benign prostatic hyperplasia with lower urinary tract symptoms; R33.8 Other retention of urine; Z20.822 Contact with and (suspected) exposure to COVID-19; Z87.891 Personal history of nicotine dependence; Z79.890 Hormone replacement therapy; Z79.899 Other long term (current) drug therapy
CPT/HCPCS: 36415; 51798; 80048; 80164; 80307; 81001; 82077; 85025; 87086; 87635; 99285; J2426

== ENCOUNTER 2021-12-20 11:21 | Inpatient (IN) | payer MEDICARE, MEDICAID, SELFPAY ==
--- NOTE | ~2021-12-20 | CT_ITS ---
EXAMINATION: CT HEAD WITHOUT CONTRAST CLINICAL INFORMATION: Confusion COMPARISON: Previous head CT scans most recent March 2021 TECHNIQUE: Contiguous axial imaging was performed from the skull base to vertex without intravenous administration of contrast. This CT examination was performed using dose optimization techniques as appropriate, variously including the following: *Automated exposure control *Adjustment of mA and/or kV according to patient size (this includes techniques or standardized protocols for targeted exams where dose is matched to indication/reason for exam; i.e. extremities or head) *Use of iterative reconstruction technique DLP: 4 1 mGy-cm FINDINGS: There is no evidence of acute intracranial hemorrhage or territorial infarction. No abnormal mass effect or midline shift is seen. Alan to white matter differentiation is well preserved. No extra-axial fluid collections are identified. The ventricles are normal in size. There is no abnormal attenuation within the brain parenchyma. The osseous structures and soft tissues are normal. The mastoid air cells and visualized portions of the paranasal sinuses are well aerated. CT/CT head/brain wo con IMPRESSION: No acute intracranial findings.
--- NOTE | 2021-12-20 11:30 | ECG_ITS ---
Test Reason : ALTERED MENTAL Blood Pressure : / mmHG Vent. Rate : 062 BPM Atrial Rate : 277 BPM P-R Int : 000 ms QRS Dur : 160 ms QT Int : 480 ms P-R-T Axes : -21 031 -20 degrees QTc Int : 487 ms Normal sinus rhythm Left bundle branch block Abnormal ECG When compared with ECG of 28-MAR-2021 22:58, No significant changes seen Referred By: Kathy Mccabe Electronically Signed By:Phil Espinal
--- NOTE | 2021-12-20 11:38 | ED_ITS ---
HPI - Altered Mental Status General Chief Complaint: Altered Mental Status Stated Complaint: ams Time Seen by Provider: 12/20/21 11:30 Source: patient Mode of arrival: ambulatory Limitations: altered mental status History of Present Illness HPI narrative: 71 y/o male with history of bipolar disorder, dementia, COPD, TBI, hypothyroidism, DM, HLD, HTN who presents to the ER via EMS with reports of altered mental status and strange behaviors. EMS reports the patient drove from his home in [place] to his ex-'s house in [place]. 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 911 was called. He told EMS that God told him to go to the house. He told them that they were going to hell. On arrival he denies all of this. He denies all physical complaints and states I'm in my right state of mind. Upon review of records patient was recently admitted to the psychiatric unit here in November for agitation, disorganized behavior and delusions. He was treated for mild UTI at that time, started on long-acting injectable psychiatric medications with plan to follow up with his psychiatrist. He was still delusional at discharge but it seemed to be his baseline. MD complaint: confusion Onset (ago): unknown Timing confirmed by: other Severity: similar to previous episodes Consistency of symptoms: waxing and waning Associated symptoms: denies other symptoms Related Data Home Medications Medication Instructions Recorded Confirmed furosemide 20 mg tablet 20 mg PO DAILY 11/22/21 12/20/21 levothyroxine 200 mcg tablet 200 mcg PO DAILY 11/22/21 12/20/21 albuterol sulfate 2.5 mg INHALATION TID PRN 12/20/21 12/20/21 famotidine 20 mg tablet 1 tab PO BID PRN 12/20/21 12/20/21 Previous Rx's Medication Instructions Recorded albuterol sulfate 90 mcg/actuation 2 puff INHALATION Q4-6H PRN #8.5 g 07/01/21 aerosol inhaler (ProAir HFA) losartan 50 mg tablet 50 mg PO DAILY 30 Days #30 tab 08/16/21 dicyclomine 20 mg tablet 20 mg PO TID PRN #90 tab 08/29/21 omeprazole 20 mg capsule,delayed 20 mg PO DAILY #30 cap 08/29/21 release atorvastatin 40 mg tablet 40 mg PO DAILY #90 tab 09/09/21 potassium chloride 20 mEq 20 meq PO DAILY 30 Days #30 tab 09/09/21 tablet,extended release(part/cryst) tamsulosin 0.4 mg capsule 0.4 mg PO DAILY #90 cap 09/09/21 finasteride 5 mg tablet 5 mg PO DAILY 30 Days #30 tab 09/19/21 divalproex 500 mg tablet,delayed 500 mg PO BID 30 Days #60 tab 12/10/21 release fluticasone propionate 50 1 spray INTRANASAL BID 30 Days #1 g 12/10/21 mcg/actuation nasal spray,suspension paliperidone palmitate 234 mg/1.5 234 mg (1.5 mL) IM QMONTH #1.5 ml 12/10/21 mL intramuscular syringe (InvOpenPeak) Allergies Allergy/AdvReac Type Severity Reaction Status Date / Time lisinopril [LISINOPRIL] Allergy Intermediate RASH Verified 12/20/21 11:56 Review of Systems Review of Systems: Constitutional: No Fever, No Chills ENT/Mouth: No sore throat, No Rhinorrhea, No Swallowing Difficulty Eyes: No Eye Pain, No Swelling, No Redness Cardiovascular: No Chest Pain, No SOB, No Orthopnea, No Edema Respiratory: No Cough, No Sputum, No Wheezing, No dyspnea Gastrointestinal: No Nausea, No Vomiting, No Diarrhea, No abdominal Pain, No Hematochezia, No Melena Genitourinary: No Dysuria, No Urinary Frequency, No Hematuria Musculoskeletal: No joint pain, No Myalgias Skin: No Skin Lesions, No rash Neuro: No Weakness, No Numbness, No Dizziness, No Headache Psych: No Anxiety/Panic, No Depression Heme/Lymph: No Bruising, No Lymphadenopathy Endocrine: No Polyuria, No Polydipsia [facility] Past Medical History Medical History Abdominal pain, chronic, right lower quadrant Acquired hypothyroidism Allergic rhinitis Anxiety Benign essential hypertension Benign prostatic hyperplasia with urinary obstruction CAD (coronary artery disease) Constipation COPD (chronic obstructive pulmonary disease) Diabetes mellitus GERD (gastroesophageal reflux disease) Insomnia Obesity (BMI 30-39.9) Osteoarthritis Pure hypercholesterolemia Vitamin D deficiency Surgical History History of arthroscopic knee surgery History of cardiac catheterization History of colectomy History of esophagogastroduodenoscopy (EGD) History of excision of pilonidal cyst History of eye surgery History of skin graft Hx of colonoscopy Family History Family History Father Stroke CVD (cerebrovascular disease) Mother Hypertension Social History Social History Household Members: None Housing: House Do you presently have visiting nurse or other home services: Yes (Pt. reports he has a homemaker.) Alcohol intake: never Patient Tobacco Use Status: Former Tobacco user Quit Date: pt. reports it was a long time ago Tobacco use type: Cigarette and Cigar Years Smoked: unknown e-Cigarette/Vaping Use: Never Used Second Hand Smoke Exposure: No Use of substances other than those prescribed or required for medical reasons: No Advance Directives: No Advance Directives Information Provided: Yes Healthcare Proxy: No Guardian: No service: No Current occupational status: retired Sexual orientation: Straight/Heterosexual Physical Exam ED Vital Signs: Vital Signs - 24 hr 12/20/21 11:56 12/20/21 13:15 12/20/21 15:21 Temperature 98.4 F 98.2 F Pulse Rate 92 64 63 Respiratory Rate 22 H 18 16 Blood Pressure 186/83 H 169/57 H 140/67 H Pulse Oximetry 98 98 98 BMI result Body Mass Index 29.5 Appearance: Alert. Oriented X2. No acute distress. Eyes: Pupils equal, round and reactive to light. ENT: Pharynx normal. Neck: Normal inspection. Neck supple. CVS: Normal heart rate and rhythm. Pulses normal. Respiratory: No respiratory distress. Breath sounds normal. Abdomen: Soft and nontender. +BS x4 Skin: Skin warm and dry. Normal skin color. Normal skin turgor. No rashes. Extremities: No lower extremity edema. Neuro/psych: Oriented X 2. No motor deficit. No sensory deficit. Ambulates with a shuffling gait, bilateral UE tremor R>E Course Course Course Narrative: 71-year-old male with a history of dementia and bipolar 1 disorder with history recent psych admission for delusional and disorganized behavior presents to the ER with similar presentation. 911 was called for trespassing onto the property of his ex-. This has been a recurrent issue per EMS. Patient is speaking about God and staying that God told him to do all of this. He denies any physical complaints. He is extremely hypertensive on arrival may be related to agitation. He is supposed to be on losartan. He said he is on on any medications. Will check metabolic workup, CT head, urinalysis. He did her recent UTI when he presented this way last time. Once he is medically cleared will have the care team see him for acute decompensation. Reevaluation(s) Reevaluation #1: Lab workup is unremarkable. UA negative for infection, he required straight cath for retention of 500cc. Will place in physician observation. Physician observation started at 2:20pm. Patient placed in physician observation because patient is awaiting CARE evaluation for the possible need of inpatient psych admission. At the time observation was started patient's vital signs were stable. Patient is alert and oriented. Neuro exam is non-focal, disorganized and delusional. CV: RRR and lungs are clear. Will continue to monitor. Reevaluation #2: Patient was trying to get up out of his stretcher and leave the emergency department. He was redirected. He was seen by the care team who signed a section 12. Planned disposition still pending. Will continue monitor. Consultations Consultation #1: CARE team MDM - Altered Mental Status Medical Records Attestation: I reviewed the patient's medical records. Lab Data Attestation: I reviewed the patient's lab results. Result diagrams: 12/20/21 12:14 12/20/21 12:14 Labs: Lab Results 12/20/21 12/20/21 12/20/21 Range/Units 12:14 12:14 12:14 WBC 4.6 L (4.8-10.8) X10*3/uL RBC 4.76 (4.60-5.80) X10*6/uL Hgb 14.1 (14.0-18.0) g/dl Hct 43.8 (42.0-52.0) % MCV 92.0 (80.0-98.0) fL MCH 29.6 (27.0-33.0) pg MCHC 32.2 (31.0-36.0) g/dl RDW 13.5 (11.0-16.0) % Plt Count 201 (160-400) X10*3/uL MPV 9.3 L (9.4-12.4) fL Immature Gran % (Auto) 0.4 (0.0-0.4) % Neut % (Auto) 67.6 (45-73) % Lymph % (Auto) 21.1 (20-40) % [place] % (Auto) 10.1 (2-11) % Eos % (Auto) 0.4 (0-4) % Baso % (Auto) 0.4 (0-2) % Lymph # (Auto) 1.0 L (1.2-4.9) X10*3/uL [place] # (Auto) 0.5 (0.1-1.2) X10*3/uL Eos # (Auto) 0.0 (0.0-0.4) X10*3/uL Baso # (Auto) 0.0 (0.0-0.2) X10*3/uL Abs Immat Gran (auto) 0.02 (0.00-0.03) X10*3/uL Absolute Neuts (auto) 3.1 (2.0-8.3) x10*3/uL Absolute Nucleated RBC 0.000 (0.0-0.012) X10*3/uL Nucleated RBC % (auto) 0.0 (0.0-0.2) /100WBC PT 12.7 (9.9-13.0) SEC INR 1.1 (0.9-1.1) APTT 34.7 (24.1-38.0) SEC Sodium 141 (135-145) mmol/L Potassium 3.6 D (3.3-5.1) mmol/L Chloride 104 (96-108) mmol/L Carbon Dioxide 30 H (22-29) mmol/L Anion Gap 11 L (12-20) BUN 24 H (9-16) mg/dL Creatinine 0.98 (0.5-1.4) mg/dL Estim Creat Clear Calc 75.8 Estimated GFR > 60 Random Glucose 113 (60-115) mg/dL Calcium 9.4 (8.4-10.2) mg/dL Magnesium 2.1 (1.6-2.6) mg/dL Total Bilirubin 0.7 (0.0-1.0) mg/dL Direct Bilirubin 0.3 (0.0-0.5) mg/dL AST 17 (5-37) U/L ALT 11 (0-40) U/L Alkaline Phosphatase 60 (39-117) U/L Ammonia (13-55) umol/L Troponin I High Sens (<3.5-35.0) ng/L Total Protein 7.1 (6.5-8.0) g/dL Albumin 4.0 (3.5-5.0) g/dL TSH 0.11 L (0.32-4.0) uIU/mL Free T4 1.85 (0.71-1.85) ng/dL Urine Color Urine Appearance Urine pH (5.0-8.0) Ur Specific [place] (1.005-1.025) Urine Protein (NEG-TRACE) MG/DL Urine Glucose (UA) (NEG) MG/DL Urine Ketones (NEG) MG/DL Urine Blood (NEG) Urine Nitrite (NEG) Ur Leukocyte Esterase (NEG) Urine RBC (0) /HPF Urine WBC (0-4) /HPF Ur Squamous Epith Cells /LPF Urine Bacteria /LPF Urine Opiates Screen (Not Detect) Urine Fentanyl Screen (Not Detect) Ur Barbiturates Screen (Not Detect) Ur Phencyclidine Scrn (Not Detect) Ur Amphetamines Screen (Not Detect) U Benzodiazepines Scrn (Not Detect) Urine Cocaine Screen (Not Detect) U Marijuana (THC) Screen (Not Detect) Ethyl Alcohol mg/dL COVID-19 (DEEPA) (Negative) COVID-19 Clin Com 12/20/21 12/20/21 12/20/21 Range/Units 12:14 12:14 12:14 WBC (4.8-10.8) X10*3/uL RBC (4.60-5.80) X10*6/uL Hgb (14.0-18.0) g/dl Hct (42.0-52.0) % MCV (80.0-98.0) fL MCH (27.0-33.0) pg MCHC (31.0-36.0) g/dl RDW (11.0-16.0) % Plt Count (160-400) X10*3/uL MPV (9.4-12.4) fL Immature Gran % (Auto) (0.0-0.4) % Neut % (Auto) (45-73) % Lymph % (Auto) (20-40) % [place] % (Auto) (2-11) % Eos % (Auto) (0-4) % Baso % (Auto) (0-2) % Lymph # (Auto) (1.2-4.9) X10*3/uL [place] # (Auto) (0.1-1.2) X10*3/uL Eos # (Auto) (0.0-0.4) X10*3/uL Baso # (Auto) (0.0-0.2) X10*3/uL Abs Immat Gran (auto) (0.00-0.03) X10*3/uL Absolute Neuts (auto) (2.0-8.3) x10*3/uL Absolute Nucleated RBC (0.0-0.012) X10*3/uL Nucleated RBC % (auto) (0.0-0.2) /100WBC PT (9.9-13.0) SEC INR (0.9-1.1) APTT (24.1-38.0) SEC Sodium (135-145) mmol/L Potassium (3.3-5.1) mmol/L Chloride (96-108) mmol/L Carbon Dioxide (22-29) mmol/L Anion Gap (12-20) BUN (9-16) mg/dL Creatinine (0.5-1.4) mg/dL Estim Creat Clear Calc Estimated GFR Random Glucose (60-115) mg/dL Calcium (8.4-10.2) mg/dL Magnesium (1.6-2.6) mg/dL Total Bilirubin (0.0-1.0) mg/dL Direct Bilirubin (0.0-0.5) mg/dL AST (5-37) U/L ALT (0-40) U/L Alkaline Phosphatase (39-117) U/L Ammonia (13-55) umol/L Troponin I High Sens 16.2 (<3.5-35.0) ng/L Total Protein (6.5-8.0) g/dL Albumin (3.5-5.0) g/dL TSH (0.32-4.0) uIU/mL Free T4 (0.71-1.85) ng/dL Urine Color Urine Appearance Urine pH (5.0-8.0) Ur Specific [place] (1.005-1.025) Urine Protein (NEG-TRACE) MG/DL Urine Glucose (UA) (NEG) MG/DL Urine Ketones (NEG) MG/DL Urine Blood (NEG) Urine Nitrite (NEG) Ur Leukocyte Esterase (NEG) Urine RBC (0) /HPF Urine WBC (0-4) /HPF Ur Squamous Epith Cells /LPF Urine Bacteria /LPF Urine Opiates Screen (Not Detect) Urine Fentanyl Screen (Not Detect) Ur Barbiturates Screen (Not Detect) Ur Phencyclidine Scrn (Not Detect) Ur Amphetamines Screen (Not Detect) U Benzodiazepines Scrn (Not Detect) Urine Cocaine Screen (Not Detect) U Marijuana (THC) Screen (Not Detect) Ethyl Alcohol < 10 mg/dL COVID-19 (DEEPA) Negative (Negative) COVID-19 Clin Com See Note 12/20/21 12/20/21 12/20/21 Range/Units 12:14 13:42 13:43 WBC (4.8-10.8) X10*3/uL RBC (4.60-5.80) X10*6/uL Hgb (14.0-18.0) g/dl Hct (42.0-52.0) % MCV (80.0-98.0) fL MCH (27.0-33.0) pg MCHC (31.0-36.0) g/dl RDW (11.0-16.0) % Plt Count (160-400) X10*3/uL MPV (9.4-12.4) fL Immature Gran % (Auto) (0.0-0.4) % Neut % (Auto) (45-73) % Lymph % (Auto) (20-40) % [place] % (Auto) (2-11) % Eos % (Auto) (0-4) % Baso % (Auto) (0-2) % Lymph # (Auto) (1.2-4.9) X10*3/uL [place] # (Auto) (0.1-1.2) X10*3/uL Eos # (Auto) (0.0-0.4) X10*3/uL Baso # (Auto) (0.0-0.2) X10*3/uL Abs Immat Gran (auto) (0.00-0.03) X10*3/uL Absolute Neuts (auto) (2.0-8.3) x10*3/uL Absolute Nucleated RBC (0.0-0.012) X10*3/uL Nucleated RBC % (auto) (0.0-0.2) /100WBC PT (9.9-13.0) SEC INR (0.9-1.1) APTT (24.1-38.0) SEC Sodium (135-145) mmol/L Potassium (3.3-5.1) mmol/L Chloride (96-108) mmol/L Carbon Dioxide (22-29) mmol/L Anion Gap (12-20) BUN (9-16) mg/dL Creatinine (0.5-1.4) mg/dL Estim Creat Clear Calc Estimated GFR Random Glucose (60-115) mg/dL Calcium (8.4-10.2) mg/dL Magnesium (1.6-2.6) mg/dL Total Bilirubin (0.0-1.0) mg/dL Direct Bilirubin (0.0-0.5) mg/dL AST (5-37) U/L ALT (0-40) U/L Alkaline Phosphatase (39-117) U/L Ammonia 25 (13-55) umol/L Troponin I High Sens (<3.5-35.0) ng/L Total Protein (6.5-8.0) g/dL Albumin (3.5-5.0) g/dL TSH (0.32-4.0) uIU/mL Free T4 (0.71-1.85) ng/dL Urine Color YELLOW Urine Appearance CLEAR Urine pH 6.0 (5.0-8.0) Ur Specific [place] 1.025 (1.005-1.025) Urine Protein 2+ H (NEG-TRACE) MG/DL Urine Glucose (UA) NEG (NEG) MG/DL Urine Ketones NEG (NEG) MG/DL Urine Blood 3+ H (NEG) Urine Nitrite NEG (NEG) Ur Leukocyte Esterase NEG (NEG) Urine RBC 50-75 H (0) /HPF Urine WBC 0 (0-4) /HPF Ur Squamous Epith Cells TRACE /LPF Urine Bacteria NONE /LPF Urine Opiates Screen Not Detected (Not Detect) Urine Fentanyl Screen Not Detected (Not Detect) Ur Barbiturates Screen Not Detected (Not Detect) Ur Phencyclidine Scrn Not Detected (Not Detect) Ur Amphetamines Screen Not Detected (Not Detect) U Benzodiazepines Scrn Not Detected (Not Detect) Urine Cocaine Screen Not Detected (Not Detect) U Marijuana (THC) Screen Not Detected (Not Detect) Ethyl Alcohol mg/dL COVID-19 (DEEPA) (Negative) COVID-19 Clin Com ECG Data ECG #1: Attestation: I personally reviewed and interpreted this ECG as follows: ECG interpretation date: 12/20/21 ECG interpretation time: 14:24 Prior ECG tracings: available for review Interpretation: normal sinus rhythm, LBBB, artifact present, disagree with atrial flutter read, HR 62 bpm, no ST segment elevations or depressions Discharge Plan Discharge Clinical Impression: Bipolar affective, manic, severe w/ psych Patient Disposition: Still a Patient Prescriptions: No Action albuterol sulfate [ProAir HFA] 90 mcg/actuation HFA aerosol inhaler 2 puff inhalation Q4-6H PRN (Reason: bronchospasm) Qty: 8.5 0RF omeprazole 20 mg capsule,delayed release(DR/EC) 20 mg PO DAILY Qty: 30 3RF dicyclomine 20 mg tablet 20 mg PO TID PRN (Reason: for pain) Qty: 90 3RF atorvastatin 40 mg tablet 40 mg PO DAILY Qty: 90 1RF tamsulosin 0.4 mg capsule 0.4 mg PO DAILY Qty: 90 1RF finasteride 5 mg tablet 5 mg PO DAILY 30 Days Qty: 30 2RF furosemide 20 mg tablet 20 mg PO DAILY 0RF levothyroxine 200 mcg tablet 200 mcg PO DAILY 0RF divalproex 500 mg Tablet,Delayed Release (Dr/Ec) 500 mg PO BID 30 Days Qty: 60 0RF fluticasone propionate 50 mcg/actuation [place],Suspension 1 spray intranasal BID 30 Days Qty: 1 0RF Invega Sustenna 234 mg/1.5 mL syringe 234 mg IM QMONTH Qty: 1.5 0RF famotidine 20 mg tablet 1 tab PO BID PRN (Reason: abdominal pain) 0RF albuterol sulfate 2.5 mg /3 mL (0.083 %) solution for nebulization 2.5 mg inhalation TID PRN (Reason: Shortness Of Breath) 0RF potassium chloride 20 mEq tablet,ER particles/crystals 20 meq PO DAILY 30 Days Qty: 30 3RF Rx Instructions: to be taken together with Furosemide in the morning losartan 50 mg tablet 50 mg PO DAILY 30 Days Qty: 30 4RF
[2021-12-20 11:56] VITALS: BP 186/83; BP 204/110; PULSE 92; PULSE 94; RESP 22; TEMP 36.9; O2SAT 100; O2SAT 98; BMI 29.5
[2021-12-20 12:26] LABS: MANUAL DIFF FLAG NO
[2021-12-20 12:33] LABS: Basophils Percent Auto 0.4 % (0-2); Eosinophils Percent Auto 0.4 % (0-4); Hematocrit 43.8 % (42.0-52.0); Hemoglobin 14.1 g/dl (14.0-18.0); Imm Gran Abs Auto 0.02 X10*3/uL (0.00-0.03); Imm Gran Pct Auto 0.4 % (0.0-0.4); Lymphocytes Percent Auto 21.1 % (20-40); Mean Corpuscular HGB Conc 32.2 g/dl (31.0-36.0); Mean Corpuscular Hemoglobin 29.6 pg (27.0-33.0); Mean Platelet Volume 9.3 fL (9.4-12.4); Monocytes Absolute Auto 0.5 X10*3/uL (0.1-1.2); Monocytes Percent Auto 10.1 % (2-11); Neutrophils Absolute Auto 3.1 x10*3/uL (2.0-8.3); Neutrophils Percent Auto 67.6 % (45-73); Platelet Count 201 X10*3/uL (160-400); Red Blood Count 4.76 X10*6/uL (4.60-5.80); Red Cell Distribution Width 13.5 % (11.0-16.0); White Blood Count 4.6 X10*3/uL (4.8-10.8)
[2021-12-20 12:39] LABS: COVID-19 Test Negative (Negative); IDNOW Serial# 08D9AD1C; INTERNATIONAL NORM RATIO 1.1 (0.9-1.1); Prothrombin Time 12.7 SEC (9.9-13.0)
[2021-12-20 12:41] LABS: Ammonia 25 umol/L (13-55)
[2021-12-20 12:42] LABS: Ethanol < 10 mg/dL; Partial Thromboplastin Time 34.7 SEC (24.1-38.0)
[2021-12-20 12:48] LABS: Alanine Aminotransferase 11 U/L (0-40); Alkaline Phosphatase 60 U/L (39-117); Anion Gap 11 (12-20); Aspartate Amino Transferase 17 U/L (5-37); Bilirubin Direct 0.3 mg/dL (0.0-0.5); Bilirubin Total 0.7 mg/dL (0.0-1.0); Blood Urea Nitrogen 24 mg/dL (9-16); Calcium 9.4 mg/dL (8.4-10.2); Carbon Dioxide 30 mmol/L (22-29); Chloride 104 mmol/L (96-108); Creatinine Clr Calc Pharmacy 75.8; Estimated Glomerular Filt Rate > 60; Glucose Random 113 mg/dL (60-115); Magnesium 2.1 mg/dL (1.6-2.6); Potassium 3.6 mmol/L (3.3-5.1); Sodium 141 mmol/L (135-145); Total Protein 7.1 g/dL (6.5-8.0)
[2021-12-20 12:51] LABS: Troponin-I High Sensitivity 16.2 ng/L (<3.5-35.0)
[2021-12-20 13:10] LABS: TSH reflex Free T4 0.11 uIU/mL (0.32-4.0)
[2021-12-20 13:15] VITALS: BP 169/57; PULSE 64; RESP 18; O2SAT 98
[2021-12-20] MEDS: Losartan Potassium 50 MG TABLET PO (13:22)
[2021-12-20 14:01] LABS: Appearance Urine CLEAR; Color Urine YELLOW; Glucose Urine UA NEG (NEG); Leukocyte Esterase Urine NEG (NEG); Nitrite Urine NEG (NEG); Specific Gravity - Urine 1.025 (1.005-1.025); UACC Culture Trigger NO; Urine Blood 3+ (NEG); Urine Ketones NEG (NEG); Urine Protein 2+ MG/DL (NEG-TRACE)
[2021-12-20 14:06] LABS: Free T4 (Free Thyroxine) 1.85 ng/dL (0.71-1.85)
--- NOTE | 2021-12-20 14:08 | PC.NURSE ---
pT FOUND TRYING TO UNDRESS AND LEAVE. Assisted back into bed. Refusing clothing but has his underwear on. Moved to bed 16 for better line of vision. Ambulatory to BR for BM. Requests 20 minutes .
[2021-12-20 14:14] LABS: RBC Urine 50-75 /HPF (0); Squamous Epithelial Cell Urine TRACE /LPF; WBC Urine 0 /HPF (0-4)
[2021-12-20 14:20] LABS: Amphetamine Screen Urine Not Detected (Not Detect); Barbiturates, Urine Not Detected (Not Detect); Benzodiazepines Screen Urine Not Detected (Not Detect); Cannabinoid Screen Urine Not Detected (Not Detect); Cocaine Screen Urine Not Detected (Not Detect); Fentanyl, urine Not Detected (Not Detect); Opiate Screen Urine Not Detected (Not Detect); Phencyclidine Screen Urine Not Detected (Not Detect)
--- NOTE | 2021-12-20 15:03 | PHA.MEDREC ---
Pharmacy Consult ? Medication Reconciliation Pharmacy has completed the medication reconciliation. pt was discharged 12/10/21 after started on long acting anti-psychotic and d/c risperdal.
[2021-12-20 15:21] VITALS: BP 140/67; PULSE 63; RESP 16; TEMP 36.8; O2SAT 98
--- NOTE | 2021-12-20 16:04 | PC.NURSE ---
since speaking with CARE TEAM pt has been resting quietly.
--- NOTE | 2021-12-20 17:50 | PC.NURSE ---
report to Nydia VALDEZ in pod. Pt is in bathroom again. States that last time he sorta urinated . Mom at bedside and update give to both that patient is an inpatient bedsearch. Pt continues to refuse to wear eliezer.
[2021-12-20] MEDS: Finasteride 5 MG TABLET PO (18:15)
[2021-12-20] MEDS: Atorvastatin Calcium 40 MG TABLET PO (18:15)
[2021-12-20 20:04] LABS: Valproate < 2.0 mcg/mL (50.0-100.0)
[2021-12-20] MEDS: Divalproex Sodium 500 MG TABLET.DR PO (20:15)
[2021-12-20] MEDS: Fluticasone Propionate Nasal 16 GM SPRAY 1 SPRAY NOSTRIL-B (21:07)
[2021-12-20 21:29] VITALS: BP 131/67; PULSE 60; RESP 16; TEMP 36.6; O2SAT 99
[2021-12-20 21:45] VITALS: BMI 28.9
--- NOTE | 2021-12-21 04:02 | PC.ADMIT ---
Patient admitted onto the unit at 2115 via wheelchair from [facility]; signed CV placed in chart. Patient [facility]; according from CARE Team Assessment patient presented to [facility] [place] [facility] via EMS after [employer] told patient several times to leave ex-'s house and patient continued to dry creek back to her house, delusional and bizarre behaviors. Admission assessment completed from Crisis Eval and Medical Record as patient unwilling to answer questions or partake in assessment. Patient alert and oriented to person and place upon arrival to the unit; presenting quiet and calm. Politely refused to sign any paperwork on the unit, not now ma'am. Expressing delusional thoughts of advent grandeur, talking about God speaking to him, then patient persecuting stating to staff you are going to hell tonight. Patient denies SI/HI. Patient with tremors in bilateral hands more prevalent in left, shuffling unsteady gait (these are baseline for this patient known from prior admissions.) Patient reported lower abdominal discomfort, has a history or urinary retention, bladder scanned in ER and straight cathed once while in ER, will continue to bladder scan according to orders; patient urinating small amounts at a time several times throughout the night. PMH: Dementia, COPD, TBI, hypothythroidism, DM, HLD, HTN, CAD, BPH, CAD, OA, GERD. Due to high falls risk patient placed on 5 minute checks for safety.
--- NOTE | 2021-12-21 06:09 | PC.NURSE ---
Patient refused 4am bladder scan; patient has voided x2 in last 6 hours.
[2021-12-21] MEDS: Omeprazole 20 MG CAPSULE.DR PO (06:44)
[2021-12-21] MEDS: Levothyroxine Sodium 200 MCG TABLET PO (06:44)
[2021-12-21 08:00] VITALS: BP 118/66; PULSE 69; RESP 18; TEMP 37.2; O2SAT 99
[2021-12-21] MEDS: Milk of Magnesia 30 ML ORAL.SUSP PO (08:08)
[2021-12-21] MEDS: Furosemide 20 MG TABLET PO (08:09)
[2021-12-21] MEDS: Divalproex Sodium 500 MG TABLET.DR PO ×2 (08:09→20:48)
[2021-12-21] MEDS: Atorvastatin Calcium 40 MG TABLET PO (08:09)
[2021-12-21] MEDS: Tamsulosin HCL 0.4 MG CAPSULE PO (08:09)
[2021-12-21 08:10] LABS: Estimated Average Glucose 108 mg/dL; Hemoglobin A1c % 5.4 %
[2021-12-21] MEDS: Finasteride 5 MG TABLET PO (08:10)
[2021-12-21] MEDS: Losartan Potassium 50 MG TABLET PO (08:10)
[2021-12-21 08:16] LABS: Valproate 28.6 mcg/mL (50.0-100.0)
[2021-12-21 08:26] LABS: Alanine Aminotransferase 10 U/L (0-40); Albumin Level 3.6 g/dL (3.5-5.0); Alkaline Phosphatase 57 U/L (39-117); Anion Gap 13 (12-20); Aspartate Amino Transferase 17 U/L (5-37); Bilirubin Total 0.7 mg/dL (0.0-1.0); Blood Urea Nitrogen 21 mg/dL (9-16); Calcium 9.1 mg/dL (8.4-10.2); Carbon Dioxide 26 mmol/L (22-29); Chloride 106 mmol/L (96-108); Cholesterol 140 mg/dL; Creatinine Clr Calc Pharmacy 81.6; Estimated Glomerular Filt Rate > 60; Glucose Fasting 110 mg/dL (60-99); HDL Cholesterol 50 mg/dL; LDL Cholesterol Calculated 76 mg/dl; Sodium 141 mmol/L (135-145); Total Protein 6.5 g/dL (6.5-8.0); Triglycerides 70 mg/dL
[2021-12-21 08:47] LABS: Free T4 (Free Thyroxine) 1.81 ng/dL (0.71-1.85); Thyroid Stimulating Hormone 0.12 uIU/mL (0.32-4.0)
--- NOTE | 2021-12-21 09:16 | PC.NURSE ---
Patient alert, reporting mild abd discomfort, reports he does not know when last moved bowels. Milk of Magnesium given, abdomen soft, non tender on palpation. Patient declined bladder scan, stated he had voided a large amount earlier this morning. Patient continues w/ shuffling gait, right handed tremor. Reviewed gait, and fall risk factors w/ provider.
--- NOTE | 2021-12-21 09:32 | P.HPPS_ITS ---
HPI Date of Service: 12/21/21 Chief Complaint: psychosis Sources of Information: patient interviewed, chart reviewed and crisis/core team assessment reviewed HPI Subjective Notes: Conditional Voluntary Narrative: Mr. Lugo is a 71 year-old male with hx of Bipolar Disorder type 1. He has been psychiatrically admitted to [facility] twice in past year with similar presentation. He was last discharged on 12/10/2021. This time, Mr. Estrada was brought by police as he refused to stay away from ex 's house despite police telling him not to return. Pt apparently reported he was told to do so by God. His utox is negative. On the unit, pt reports hearing voices of God. He is fairly calm. He asks this typewriter repairer if he can go back home. He reports God is telling him that the end of the world is coming soon. He reports he is protected by God but many others will go to hell. This is similar as previous delusional content reported. He denies SI/HI. His gait is unstead, will have 1:1 for safety and added PT consult. Pt reports sleeping and eating well. Past Psychiatric History: -Has OP services at [facility], provider is Dr. Ventura -Hx of VNA services, now discontinued -Hx of 4 prev inpatient psych admissions. Pt has previous psych admission [place] [facility] 03/29/21-04/10/21 due to agitation, religiously preoccupied, stating that he is God and has killed the devil, and lack of self care in context of med non- adherence. On the unit he was labile, agitated, and demanding to leave, tried to elope several times. He had poor insight symptoms, however ultimately agreed to trial of risperdal, depakote and was discharged home with VNA. -Recent crisis eval 10/29/21 due to med non-adherence, AH, delusions, not showering, and meeting with his who is . Dispo was to f/u with OP providers. -Past trials: olanzapine (on this for several years but reported sedation, constipation, dizziness), citalopram, haldol (EPS), geodon 20 mg, trileptal (ineffective), lamictal (rash), seroquel (ineffective). Risperdal 1 mg QD and 3 mg QHS and depakote 500 mg BID were started during prev [facility] admission 03/2021. Medical Evaluation Reviewed: Yes [facility] Medical History Abdominal pain, chronic, right lower quadrant Acquired hypothyroidism Allergic rhinitis Anxiety Benign essential hypertension Benign prostatic hyperplasia with urinary obstruction CAD (coronary artery disease) Constipation COPD (chronic obstructive pulmonary disease) Diabetes mellitus GERD (gastroesophageal reflux disease) Insomnia Obesity (BMI 30-39.9) Osteoarthritis Pure hypercholesterolemia Vitamin D deficiency Surgical History History of arthroscopic knee surgery History of cardiac catheterization History of colectomy History of esophagogastroduodenoscopy (EGD) History of excision of pilonidal cyst History of eye surgery History of skin graft Hx of colonoscopy Family History: sister- depression Social History: -Pt?s supports include his mother, Gabriela Lugo ([phone]). 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 Substance History: none Trauma History: none Diagnostics Vital Signs (24Hr): Vital Signs - 24 hr 12/20/21 11:56 12/20/21 13:15 12/20/21 15:21 Temperature 98.4 F 98.2 F Pulse Rate 92 64 63 Respiratory Rate 22 H 18 16 Blood Pressure 186/83 H 169/57 H 140/67 H Pulse Oximetry 98 98 98 12/20/21 21:29 12/21/21 08:00 Temperature 97.8 F 99 F Pulse Rate 60 69 Respiratory Rate 16 18 Blood Pressure 131/67 118/66 Pulse Oximetry 99 99 BMI result Body Mass Index 29.5 Labs Results: 12/20/21 12:14 12/22/21 10:43 Labs: Laboratory Results - last 48 hr 12/20/21 12/20/21 12/20/21 12:14 12:14 12:14 WBC 4.6 L RBC 4.76 Hgb 14.1 Hct 43.8 MCV 92.0 MCH 29.6 MCHC 32.2 RDW 13.5 Plt Count 201 MPV 9.3 L Immature Gran % (Auto) 0.4 Neut % (Auto) 67.6 Lymph % (Auto) 21.1 Bates % (Auto) 10.1 Eos % (Auto) 0.4 Baso % (Auto) 0.4 Lymph # (Auto) 1.0 L Bates # (Auto) 0.5 Eos # (Auto) 0.0 Baso # (Auto) 0.0 Abs Immat Gran (auto) 0.02 Absolute Neuts (auto) 3.1 Absolute Nucleated RBC 0.000 Nucleated RBC % (auto) 0.0 PT 12.7 INR 1.1 APTT 34.7 Sodium 141 Potassium 3.6 D Chloride 104 Carbon Dioxide 30 H Anion Gap 11 L BUN 24 H Creatinine 0.98 Estim Creat Clear Calc 75.8 Estimated GFR > 60 Random Glucose 113 Fasting Glucose Estimat Average Glucose Hemoglobin A1c % Calcium 9.4 Magnesium 2.1 Total Bilirubin 0.7 Direct Bilirubin 0.3 AST 17 ALT 11 Alkaline Phosphatase 60 Ammonia Troponin I High Sens Total Protein 7.1 Albumin 4.0 Triglycerides Cholesterol LDL Cholesterol, Calc HDL Cholesterol TSH 0.11 L Free T4 1.85 Urine Color Urine Appearance Urine pH Ur Specific [place] Urine Protein Urine Glucose (UA) Urine Ketones Urine Blood Urine Nitrite Ur Leukocyte Esterase Urine RBC Urine WBC Ur Squamous Epith Cells Urine Bacteria Urine Opiates Screen Urine Fentanyl Screen Ur Barbiturates Screen Valproic Acid < 2.0 L Ur Phencyclidine Scrn Ur Amphetamines Screen U Benzodiazepines Scrn Urine Cocaine Screen U Marijuana (THC) Screen Ethyl Alcohol COVID-19 (DEEPA) COVID-19 Clin Com 12/20/21 12/20/21 12/20/21 12:14 12:14 12:14 WBC RBC Hgb Hct MCV MCH MCHC RDW Plt Count MPV Immature Gran % (Auto) Neut % (Auto) Lymph % (Auto) Bates % (Auto) Eos % (Auto) Baso % (Auto) Lymph # (Auto) Bates # (Auto) Eos # (Auto) Baso # (Auto) Abs Immat Gran (auto) Absolute Neuts (auto) Absolute Nucleated RBC Nucleated RBC % (auto) PT INR APTT Sodium Potassium Chloride Carbon Dioxide Anion Gap BUN Creatinine Estim Creat Clear Calc Estimated GFR Random Glucose Fasting Glucose Estimat Average Glucose Hemoglobin A1c % Calcium Magnesium Total Bilirubin Direct Bilirubin AST ALT Alkaline Phosphatase Ammonia Troponin I High Sens 16.2 Total Protein Albumin Triglycerides Cholesterol LDL Cholesterol, Calc HDL Cholesterol TSH Free T4 Urine Color Urine Appearance Urine pH Ur Specific [place] Urine Protein Urine Glucose (UA) Urine Ketones Urine Blood Urine Nitrite Ur Leukocyte Esterase Urine RBC Urine WBC Ur Squamous Epith Cells Urine Bacteria Urine Opiates Screen Urine Fentanyl Screen Ur Barbiturates Screen Valproic Acid Ur Phencyclidine Scrn Ur Amphetamines Screen U Benzodiazepines Scrn Urine Cocaine Screen U Marijuana (THC) Screen Ethyl Alcohol < 10 COVID-19 (DEEPA) Negative COVID-19 Clin Com See Note 12/20/21 12/20/21 12/20/21 12:14 13:42 13:43 WBC RBC Hgb Hct MCV MCH MCHC RDW Plt Count MPV Immature Gran % (Auto) Neut % (Auto) Lymph % (Auto) Bates % (Auto) Eos % (Auto) Baso % (Auto) Lymph # (Auto) Bates # (Auto) Eos # (Auto) Baso # (Auto) Abs Immat Gran (auto) Absolute Neuts (auto) Absolute Nucleated RBC Nucleated RBC % (auto) PT INR APTT Sodium Potassium Chloride Carbon Dioxide Anion Gap BUN Creatinine Estim Creat Clear Calc Estimated GFR Random Glucose Fasting Glucose Estimat Average Glucose Hemoglobin A1c % Calcium Magnesium Total Bilirubin Direct Bilirubin AST ALT Alkaline Phosphatase Ammonia 25 Troponin I High Sens Total Protein Albumin Triglycerides Cholesterol LDL Cholesterol, Calc HDL Cholesterol TSH Free T4 Urine Color YELLOW Urine Appearance CLEAR Urine pH 6.0 Ur Specific [place] 1.025 Urine Protein 2+ H Urine Glucose (UA) NEG Urine Ketones NEG Urine Blood 3+ H Urine Nitrite NEG Ur Leukocyte Esterase NEG Urine RBC 50-75 H Urine WBC 0 Ur Squamous Epith Cells TRACE Urine Bacteria NONE Urine Opiates Screen Not Detected Urine Fentanyl Screen Not Detected Ur Barbiturates Screen Not Detected Valproic Acid Ur Phencyclidine Scrn Not Detected Ur Amphetamines Screen Not Detected U Benzodiazepines Scrn Not Detected Urine Cocaine Screen Not Detected U Marijuana (THC) Screen Not Detected Ethyl Alcohol COVID-19 (DEEPA) COVID-19 Clin Com 12/21/21 12/21/21 07:01 07:01 WBC RBC Hgb Hct MCV MCH MCHC RDW Plt Count MPV Immature Gran % (Auto) Neut % (Auto) Lymph % (Auto) Bates % (Auto) Eos % (Auto) Baso % (Auto) Lymph # (Auto) Bates # (Auto) Eos # (Auto) Baso # (Auto) Abs Immat Gran (auto) Absolute Neuts (auto) Absolute Nucleated RBC Nucleated RBC % (auto) PT INR APTT Sodium 141 Potassium 4.0 Chloride 106 Carbon Dioxide 26 Anion Gap 13 BUN 21 H Creatinine 0.91 Estim Creat Clear Calc 81.6 Estimated GFR > 60 Random Glucose Fasting Glucose 110 H Estimat Average Glucose 108 Hemoglobin A1c % 5.4 Calcium 9.1 Magnesium Total Bilirubin 0.7 Direct Bilirubin AST 17 ALT 10 Alkaline Phosphatase 57 Ammonia Troponin I High Sens Total Protein 6.5 Albumin 3.6 Triglycerides 70 Cholesterol 140 LDL Cholesterol, Calc 76 HDL Cholesterol 50 D TSH 0.12 L Free T4 1.81 Urine Color Urine Appearance Urine pH Ur Specific [place] Urine Protein Urine Glucose (UA) Urine Ketones Urine Blood Urine Nitrite Ur Leukocyte Esterase Urine RBC Urine WBC Ur Squamous Epith Cells Urine Bacteria Urine Opiates Screen Urine Fentanyl Screen Ur Barbiturates Screen Valproic Acid 28.6 L Ur Phencyclidine Scrn Ur Amphetamines Screen U Benzodiazepines Scrn Urine Cocaine Screen U Marijuana (THC) Screen Ethyl Alcohol COVID-19 (DEEPA) COVID-19 Clin Com Imaging Radiology Impressions: ITS Impressions Head CT 12/20/21 12:42 IMPRESSION: No acute intracranial findings. Meds/Allergies Meds Home Medications Acetaminophen (Acetaminophen 325 Mg Tablet) 650 mg PO Q6H PRN PRN Reason: Headache/Pain Mild Scale (1-3) Al Hydroxide/Mg Hydroxide (Magnesium Hydrox/Alum Hydrox 30 Ml Oral.Susp) 30 ml PO Q6H PRN PRN Reason: Heartburn/Nausea Albuterol Sulfate (Albuterol Sulfate (0.083%) 2.5 Mg/3 Ml Vial.Neb) 2.5 mg INHALE TID PRN PRN Reason: Shortness Of Breath Albuterol Sulfate (Albuterol Sulfate 90 Mcg 8 Gm Inhaler) 2 puff INHALE Q4H PRN PRN Reason: bronchospasm Atorvastatin Calcium (Atorvastatin Calcium 40 Mg Tablet) 40 mg PO DAILY [facility] Last Admin: 12/22/21 08:12 Dose: 40 mg Documented by: Dicyclomine HCl (Dicyclomine Hcl 10 Mg Capsule) 20 mg PO TID PRN PRN Reason: for pain Divalproex Sodium (Divalproex Sodium 500 Mg Tablet.) 500 mg PO BID [facility] Last Admin: 12/22/21 20:52 Dose: 500 mg Documented by: Famotidine (Famotidine 20 Mg Tablet) 20 mg PO BID PRN PRN Reason: abdominal pain Finasteride (Finasteride 5 Mg Tablet) 5 mg PO DAILY [facility] Last Admin: 12/22/21 08:13 Dose: 5 mg Documented by: Fluticasone Propionate (Fluticasone Propionate Nasal 16 Gm [place]) 1 spray NOSTRIL-B BID [facility] Last Admin: 12/22/21 20:54 Dose: Not Given Documented by: Furosemide (Furosemide 20 Mg Tablet) 20 mg PO DAILY [facility]; Protocol Last Admin: 12/22/21 08:12 Dose: 20 mg Documented by: Hydroxyzine HCl (Hydroxyzine Hcl 25 Mg Tablet) 25 mg PO Q6H PRN PRN Reason: Anxiety Levothyroxine Sodium (Levothyroxine Sodium 200 Mcg Tablet) 200 mcg PO DAILY@0600 [facility] Last Admin: 12/23/21 05:39 Dose: 200 mcg Documented by: Losartan Potassium (Losartan Potassium 50 Mg Tablet) 50 mg PO DAILY [facility]; Protocol Last Admin: 12/22/21 08:12 Dose: 50 mg Documented by: Magnesium Hydroxide (Milk Of Magnesia 30 Ml Oral.Susp) 30 ml PO DAILY PRN PRN Reason: Constipation Last Admin: 12/21/21 08:08 Dose: 30 ml Documented by: Omeprazole (Omeprazole 20 Mg Capsule.Dr) 20 mg PO DAILY@0600 [facility] Last Admin: 12/23/21 05:39 Dose: 20 mg Documented by: Pharmacy Consult (Consult Rx Perform Med Rec) 1 each MISCELLANE ONCE PRN PRN Reason: Consult order Potassium Chloride (Potassium Chloride Er 20 Meq Tab.Er.Prt) 20 meq PO DAILY [facility] Last Admin: 12/22/21 09:22 Dose: 20 meq Documented by: Tamsulosin HCl (Tamsulosin Hcl 0.4 Mg Capsule) 0.4 mg PO DAILY [facility] Last Admin: 12/22/21 08:12 Dose: 0.4 mg Documented by: Trazodone HCl (Trazodone Hcl 50 Mg Tablet) 50 mg PO BEDTIME PRN PRN Reason: Insomnia Allergies Allergies Allergy/AdvReac Type Severity Reaction Status Date / Time lisinopril [LISINOPRIL] Allergy Intermediate RASH Verified 12/20/21 11:56 Mental Status Exam Mental Status Exam Narrative: Appearance: casually groomed, fair hygiene in NAD Behavior:guarded psychomotor:resting and action bilat tremors, more prominent right side, unsteady gait Speech:clear, normal rate/rhythm/volume, spontaneous Thought process:tangential Thought content:mormonism delusions AH of God. Mood: good Affect: constricted, somewhat irritable SI:denies HI:denies VH/AH:AH of God Delusions:mormonism delusions Insight/judgment:impaired x 2 Memory/cog: alert, oriented to place, months, not situation, Assessment & Plan Assessment & Plan (1) Bipolar 1 disorder: Status: Acute Code(s): F31.9 - Bipolar disorder, unspecified Plan Mr. Lugo is a 71 year-old male with hx of Bipolar Disorder type 1, admitted for increased mormonism delusions, going to ex 's house asked not to go there by police, insisting on doing so because God had instructed him to do so. He was started on paliperidone on previous admission. Need to verified when was his last dose. PLAN: 1. Admit to M3, 1:1 for unsteady gait/safety and high risk for fall. 2. Monitor urinary retention- kidney function given hx. 3. Obtain collateral information 4. Aftercare planning. Patient educated on: diagnosis and medication risk/benefits Informed Consent: understands Reason for continued inpatient stay Substantial Risk for: inability to function
[2021-12-21] MEDS: Potassium Chloride ER 20 MEQ TAB.ER.PRT PO (10:02)
[2021-12-21] MEDS: Fluticasone Propionate Nasal 16 GM SPRAY 1 SPRAY NOSTRIL-B ×2 (10:03→20:48)
[2021-12-21 11:41] VITALS: BP 118/66; PULSE 69; O2SAT 99
--- NOTE | 2021-12-21 15:03 | PC.NURSE ---
Late entry: Patient seen by PT, educated on use of walker. 1:1 at bedside, pt cooperative w/ care. Per pt and 1:1, pt voiding, and moved his bowels.
[2021-12-21 20:17] VITALS: BP 125/97; PULSE 68; RESP 20; TEMP 36.6; O2SAT 98
--- NOTE | 2021-12-22 05:17 | PC.NURSE ---
Addendum entered by Ann Jefferson RN 12/22/21 05:28: ~4oz water and returned to sleep. Will continue to monitor for urinary retention. Original Note: Patient reported feeling a need to urinate and unable to void, upon initial report patient was offered to be bladder scanned and patient responded I will wait. Within the hour, patient up to BR again attempting to void without success, at which della he was bladder scanned 179cc. Drank `
--- NOTE | 2021-12-22 06:17 | P.PNPSI_ITS ---
Subjective Subjective Date of Service: 12/22/21 Reason For Visit: psychosis Subjective Notes: Conditional Voluntary Interim History: Pt in room, reporting difficulty urinating, straight cath only 350. Later PVR <42. 2 Pt reports hearing voice of God, continues to report that end of world happening soon. He denies SI/HI. He asks this underwriter to discharge him soon. He denies SI/HI. Per nursing, up for part of night due to urinary frequency although no sign of retention. Medication Compliance: Yes Side effects from medications: No Review of Systems Review of Systems Constitutional: No Fever, No Chills ENT/Mouth: No sore throat, No Rhinorrhea, No Swallowing Difficulty Eyes: No Eye Pain, No Swelling, No Redness Cardiovascular: No Chest Pain, No SOB, No Orthopnea, No Edema Respiratory: No Cough, No Sputum, No Wheezing, No dyspnea Gastrointestinal: No Nausea, No Vomiting, No Diarrhea, No abdominal Pain, No Hematochezia, No Melena Genitourinary: No Dysuria, No Urinary Frequency, No Hematuria Musculoskeletal: No joint pain, No Myalgias Skin: No Skin Lesions, No rash Neuro: No Weakness, No Numbness, No Dizziness, No Headache Psych: No Anxiety/Panic, No Depression Heme/Lymph: No Bruising, No Lymphadenopathy Endocrine: No Polyuria, No Polydipsia Constitutional: Reports frequent falls and Denies poor appetite Eyes: Reports no additional eye complaints Cardiovascular: Denies chest pain, Denies lightheadedness and Denies dyspnea Respiratory: Denies chest congestion and Denies dyspnea Gastrointestinal: Denies constipation, Reports GI cramping, Denies loose stools and Denies nausea Genitourinary: Reports urinary frequency Musculoskeletal: Reports back pain Reports frequent falls Mental Status Exam Mental Status Exam Narrative: Appearance: casually groomed, fair hygiene in NAD Behavior:guarded psychomotor:resting and action bilat tremors, more prominent right side, unsteady gait Speech:clear, normal rate/rhythm/volume, spontaneous Thought process:tangential Thought content:uatsdin delusions AH of God. Mood: good Affect: constricted, somewhat irritable SI:denies HI:denies VH/AH:AH of God Delusions:uatsdin delusions Insight/judgment:impaired x 2 Memory/cog: alert, oriented to place, months, not situation, Diagnostics Vital Signs (24Hr): Vital Signs - 24 hr 12/22/21 08:00 12/22/21 18:00 Temperature 97.7 F 97.7 F Pulse Rate 87 100 Respiratory Rate 18 20 Blood Pressure 157/77 H 98/55 L Pulse Oximetry 96 99 BMI result Body Mass Index 28.9 Labs Results: 12/20/21 12:14 12/22/21 10:43 Labs: Laboratory Results - last 48 hr 12/21/21 12/21/21 12/22/21 07:01 07:01 10:30 Sodium 141 Potassium 4.0 Chloride 106 Carbon Dioxide 26 Anion Gap 13 BUN 21 H Creatinine 0.91 Estim Creat Clear Calc 81.6 Estimated GFR > 60 Random Glucose Fasting Glucose 110 H Estimat Average Glucose 108 Hemoglobin A1c % 5.4 Calcium 9.1 Total Bilirubin 0.7 AST 17 ALT 10 Alkaline Phosphatase 57 Total Protein 6.5 Albumin 3.6 Triglycerides 70 Cholesterol 140 LDL Cholesterol, Calc 76 HDL Cholesterol 50 D TSH 0.12 L Free T4 1.81 Urine Color YELLOW Urine Appearance CLEAR Urine pH 6.0 Ur Specific [place] 1.025 Urine Protein TRACE Urine Glucose (UA) NEG Urine Ketones NEG Urine Blood TRACE Urine Nitrite NEG Ur Leukocyte Esterase NEG Urine RBC 0-2 Urine WBC 0-2 Ur Squamous Epith Cells NONE Urine Bacteria NONE Urine Mucus TRACE Valproic Acid 28.6 L 12/22/21 10:43 Sodium 141 Potassium 4.0 Chloride 107 Carbon Dioxide 30 H Anion Gap 8 L BUN 21 H Creatinine 1.05 Estim Creat Clear Calc 70.1 Estimated GFR > 60 Random Glucose 109 Fasting Glucose Estimat Average Glucose Hemoglobin A1c % Calcium 9.0 Total Bilirubin 0.7 AST 14 ALT 11 Alkaline Phosphatase 53 Total Protein 5.8 L Albumin 3.4 L Triglycerides Cholesterol LDL Cholesterol, Calc HDL Cholesterol TSH Free T4 Urine Color Urine Appearance Urine pH Ur Specific [place] Urine Protein Urine Glucose (UA) Urine Ketones Urine Blood Urine Nitrite Ur Leukocyte Esterase Urine RBC Urine WBC Ur Squamous Epith Cells Urine Bacteria Urine Mucus Valproic Acid Imaging Radiology Impressions: ITS Impressions Head CT 12/20/21 12:42 IMPRESSION: No acute intracranial findings. Medications Medications Current Medications Acetaminophen (Acetaminophen 325 Mg Tablet) 650 mg PO Q6H PRN PRN Reason: Headache/Pain Mild Scale (1-3) Al Hydroxide/Mg Hydroxide (Magnesium Hydrox/Alum Hydrox 30 Ml Oral.Susp) 30 ml PO Q6H PRN PRN Reason: Heartburn/Nausea Albuterol Sulfate (Albuterol Sulfate (0.083%) 2.5 Mg/3 Ml Vial.Neb) 2.5 mg INHALE TID PRN PRN Reason: Shortness Of Breath Albuterol Sulfate (Albuterol Sulfate 90 Mcg 8 Gm Inhaler) 2 puff INHALE Q4H PRN PRN Reason: bronchospasm Atorvastatin Calcium (Atorvastatin Calcium 40 Mg Tablet) 40 mg PO DAILY [facility] Last Admin: 12/22/21 08:12 Dose: 40 mg Documented by: Dicyclomine HCl (Dicyclomine Hcl 10 Mg Capsule) 20 mg PO TID PRN PRN Reason: for pain Divalproex Sodium (Divalproex Sodium 500 Mg Tablet.) 500 mg PO BID [facility] Last Admin: 12/22/21 20:52 Dose: 500 mg Documented by: Famotidine (Famotidine 20 Mg Tablet) 20 mg PO BID PRN PRN Reason: abdominal pain Finasteride (Finasteride 5 Mg Tablet) 5 mg PO DAILY [facility] Last Admin: 12/22/21 08:13 Dose: 5 mg Documented by: Fluticasone Propionate (Fluticasone Propionate Nasal 16 Gm [place]) 1 spray NOSTRIL-B BID [facility] Last Admin: 12/22/21 20:54 Dose: Not Given Documented by: Furosemide (Furosemide 20 Mg Tablet) 20 mg PO DAILY [facility]; Protocol Last Admin: 12/22/21 08:12 Dose: 20 mg Documented by: Hydroxyzine HCl (Hydroxyzine Hcl 25 Mg Tablet) 25 mg PO Q6H PRN PRN Reason: Anxiety Levothyroxine Sodium (Levothyroxine Sodium 200 Mcg Tablet) 200 mcg PO DAILY@0600 [facility] Last Admin: 12/23/21 05:39 Dose: 200 mcg Documented by: Losartan Potassium (Losartan Potassium 50 Mg Tablet) 50 mg PO DAILY [facility]; Protocol Last Admin: 12/22/21 08:12 Dose: 50 mg Documented by: Magnesium Hydroxide (Milk Of Magnesia 30 Ml Oral.Susp) 30 ml PO DAILY PRN PRN Reason: Constipation Last Admin: 12/21/21 08:08 Dose: 30 ml Documented by: Omeprazole (Omeprazole 20 Mg Capsule.) 20 mg PO DAILY@0600 [facility] Last Admin: 12/23/21 05:39 Dose: 20 mg Documented by: Pharmacy Consult (Consult Rx Perform Med Rec) 1 each MISCELLANE ONCE PRN PRN Reason: Consult order Potassium Chloride (Potassium Chloride Er 20 Meq Tab.Er.Prt) 20 meq PO DAILY [facility] Last Admin: 12/22/21 09:22 Dose: 20 meq Documented by: Tamsulosin HCl (Tamsulosin Hcl 0.4 Mg Capsule) 0.4 mg PO DAILY [facility] Last Admin: 12/22/21 08:12 Dose: 0.4 mg Documented by: Trazodone HCl (Trazodone Hcl 50 Mg Tablet) 50 mg PO BEDTIME PRN PRN Reason: Insomnia Allergies Allergies Allergy/AdvReac Type Severity Reaction Status Date / Time lisinopril [LISINOPRIL] Allergy Intermediate RASH Verified 12/20/21 11:56 Assessment & Plan Assessment & Plan (1) Bipolar 1 disorder: Status: Acute Code(s): F31.9 - Bipolar disorder, unspecified Plan Mr. Lugo is a 71 year-old male with hx of Bipolar Disorder type 1, admitted for increased uatsdin delusions, going to ex 's house asked not to go there by police, insisting on doing so because God had instructed him to do so. He was started on paliperidone on previous admission. Need to verified when was his last dose. PLAN: 1. Admit to [facility], 1:1 for unsteady gait/safety and high risk for fall. 2. Monitor urinary retention- kidney function given hx. 3. Obtain collateral information 4. Aftercare planning. I spent minutes with the patient and/or on the patient floor today, greater than?50% of which was spent counseling/coordinating care. Reason for contiued inpatient stay Substantial Risk for: inability to function
[2021-12-22 08:00] VITALS: BP 157/77; PULSE 87; RESP 18; TEMP 36.5; O2SAT 96
[2021-12-22] MEDS: Omeprazole 20 MG CAPSULE.DR PO (08:11)
[2021-12-22] MEDS: Atorvastatin Calcium 40 MG TABLET PO (08:12)
[2021-12-22] MEDS: Furosemide 20 MG TABLET PO (08:12)
[2021-12-22] MEDS: Losartan Potassium 50 MG TABLET PO (08:12)
[2021-12-22] MEDS: Tamsulosin HCL 0.4 MG CAPSULE PO (08:12)
[2021-12-22] MEDS: Finasteride 5 MG TABLET PO (08:13)
[2021-12-22] MEDS: Levothyroxine Sodium 200 MCG TABLET PO (08:13)
[2021-12-22] MEDS: Divalproex Sodium 500 MG TABLET.DR PO ×2 (08:13→20:52)
[2021-12-22] MEDS: Potassium Chloride ER 20 MEQ TAB.ER.PRT PO (09:22)
--- NOTE | 2021-12-22 11:24 | PC.NURSE ---
Late entry: On initial contact w/ pt , patient irritable, reporting that he was unable to void. Patient encouraged to hydrate, AM medications given. No bladder distention palpated. 1:1 at bedside, patient made two other unsuccessful attempts to void. [place] notified, bladder scan completed ~212 cc, patient straight cathed per provider order due to patient report of discomfort. Patient straight cath for 375cc dark, clear urine. Sample obtained and sent to lab. Patient reported relief of discomfort post straight cath.
[2021-12-22 11:27] LABS: Appearance Urine CLEAR; Color Urine YELLOW; Glucose Urine UA NEG (NEG); Leukocyte Esterase Urine NEG (NEG); Nitrite Urine NEG (NEG); Specific Gravity - Urine 1.025 (1.005-1.025); UACC Culture Trigger NO; Urine Blood TRACE (NEG); Urine Ketones NEG (NEG); Urine Protein TRACE MG/DL (NEG-TRACE)
[2021-12-22 11:33] LABS: Alanine Aminotransferase 11 U/L (0-40); Albumin Level 3.4 g/dL (3.5-5.0); Alkaline Phosphatase 53 U/L (39-117); Anion Gap 8 (12-20); Aspartate Amino Transferase 14 U/L (5-37); Bilirubin Total 0.7 mg/dL (0.0-1.0); Blood Urea Nitrogen 21 mg/dL (9-16); Carbon Dioxide 30 mmol/L (22-29); Chloride 107 mmol/L (96-108); Creatinine Clr Calc Pharmacy 70.1; Estimated Glomerular Filt Rate > 60; Glucose Random 109 mg/dL (60-115); Sodium 141 mmol/L (135-145); Total Protein 5.8 g/dL (6.5-8.0)
[2021-12-22 11:37] LABS: RBC Urine 0-2 /HPF (0); WBC Urine 0-2 /HPF (0-4)
[2021-12-22 11:38] LABS: Mucus Urine TRACE /LPF
[2021-12-22 18:00] VITALS: BP 98/55; PULSE 100; RESP 20; TEMP 36.5; O2SAT 99
[2021-12-23] MEDS: Levothyroxine Sodium 200 MCG TABLET PO (05:39)
[2021-12-23] MEDS: Omeprazole 20 MG CAPSULE.DR PO (05:39)
--- NOTE | 2021-12-23 05:44 | PC.NURSE ---
Bladder scan done, 156 ml in bladder, did not straight cath at this time.
[2021-12-23] MEDS: Tamsulosin HCL 0.4 MG CAPSULE PO (08:19)
[2021-12-23 08:20] LABS: Folate 14.5 ng/mL (> or = 4.0); Vitamin B12 880 pg/mL (200-900)
[2021-12-23] MEDS: Furosemide 20 MG TABLET PO (08:20)
[2021-12-23] MEDS: Potassium Chloride ER 20 MEQ TAB.ER.PRT PO (08:20)
[2021-12-23] MEDS: Losartan Potassium 50 MG TABLET PO (08:20)
[2021-12-23] MEDS: Atorvastatin Calcium 40 MG TABLET PO (08:21)
[2021-12-23] MEDS: Divalproex Sodium 500 MG TABLET.DR PO ×2 (08:21→21:33)
[2021-12-23] MEDS: Finasteride 5 MG TABLET PO (08:22)
[2021-12-23 08:33] VITALS: BP 109/51; PULSE 52; RESP 14; O2SAT 98
--- NOTE | 2021-12-23 12:28 | P.PNPSI_ITS ---
Subjective Subjective Date of Service: 12/23/21 Reason For Visit: psychosis Subjective Notes: Conditional Voluntary Interim History: Pt transferred [facility]. Pt continues to report that he hears God's voice. He reports God tells him that world will end and who will go to [facility] or [facility]. He adamantly denies SI/HI. He also reports he hears Nathalie's voice, who he states is his , same age as him and he states they are having a baby. Pt continues to report that God telling him to go to [facility] in [place], where police found him and brought him home. Medication Compliance: Yes Side effects from medications: No Attending Groups: No Review of Systems Review of Systems Constitutional: No Fever, No Chills ENT/Mouth: No sore throat, No Rhinorrhea, No Swallowing Difficulty Eyes: No Eye Pain, No Swelling, No Redness Cardiovascular: No Chest Pain, No SOB, No Orthopnea, No Edema Respiratory: No Cough, No Sputum, No Wheezing, No dyspnea Gastrointestinal: No Nausea, No Vomiting, No Diarrhea, No abdominal Pain, No Hematochezia, No Melena Genitourinary: No Dysuria, No Urinary Frequency, No Hematuria Musculoskeletal: No joint pain, No Myalgias Skin: No Skin Lesions, No rash Neuro: No Weakness, No Numbness, No Dizziness, No Headache Psych: No Anxiety/Panic, No Depression Heme/Lymph: No Bruising, No Lymphadenopathy Endocrine: No Polyuria, No Polydipsia Constitutional: Reports frequent falls and Denies poor appetite Eyes: Reports no additional eye complaints Cardiovascular: Denies chest pain, Denies lightheadedness and Denies dyspnea Respiratory: Denies chest congestion and Denies dyspnea Gastrointestinal: Denies constipation, Reports GI cramping, Denies loose stools and Denies nausea Genitourinary: Reports urinary frequency Musculoskeletal: Reports back pain Reports frequent falls Mental Status Exam Mental Status Exam Narrative: Appearance: casually groomed, fair hygiene in NAD Behavior:cooperative psychomotor:resting and action bilat tremors, more prominent right side, unsteady gait Speech:clear, normal rate/rhythm/volume, spontaneous Thought process:tangential Thought content:scientology delusions AH of God. Mood: good Affect: constricted, somewhat irritable SI:denies HI:denies VH/AH:AH of God Delusions:scientology delusions Insight/judgment:impaired x 2 Memory/cog: alert, oriented to place, month, not situation, Diagnostics Vital Signs (24Hr): Vital Signs - 24 hr 12/24/21 21:46 12/25/21 08:00 Temperature 97 F 97.2 F Pulse Rate 72 64 Respiratory Rate 18 16 Blood Pressure 150/75 H 92/53 L Pulse Oximetry 97 96 BMI result Body Mass Index 28.9 Labs Results: 12/20/21 12:14 12/22/21 10:43 Imaging Radiology Impressions: ITS Impressions Head CT 12/20/21 12:42 IMPRESSION: No acute intracranial findings. Medications Medications Current Medications Acetaminophen (Acetaminophen 325 Mg Tablet) 650 mg PO Q6H PRN PRN Reason: Headache/Pain Mild Scale (1-3) Last Admin: 12/25/21 02:47 Dose: 650 mg Documented by: Al Hydroxide/Mg Hydroxide (Magnesium Hydrox/Alum Hydrox 30 Ml Oral.Susp) 30 ml PO Q6H PRN PRN Reason: Heartburn/Nausea Albuterol Sulfate (Albuterol Sulfate (0.083%) 2.5 Mg/3 Ml Vial.Neb) 2.5 mg IN [facility] TID PRN PRN Reason: Shortness Of Breath Albuterol Sulfate (Albuterol Sulfate 90 Mcg 8 Gm Inhaler) 2 puff INHALE Q4H PRN PRN Reason: bronchospasm Last Admin: 12/25/21 12:06 Dose: 2 puff Documented by: Atorvastatin Calcium (Atorvastatin Calcium 40 Mg Tablet) 40 mg PO DAILY [facility] Last Admin: 12/25/21 08:47 Dose: 40 mg Documented by: Benztropine Mesylate (Benztropine Mesylate 0.5 Mg Tablet) 0.5 mg PO BID [facility] Last Admin: 12/25/21 10:59 Dose: 0.5 mg Documented by: Dicyclomine HCl (Dicyclomine Hcl 10 Mg Capsule) 20 mg PO TID PRN PRN Reason: for pain Divalproex Sodium (Divalproex Sodium 500 Mg Tablet.Dr) 500 mg PO BID [facility] Last Admin: 12/25/21 08:47 Dose: 500 mg Documented by: Famotidine (Famotidine 20 Mg Tablet) 20 mg PO BID PRN PRN Reason: abdominal pain Finasteride (Finasteride 5 Mg Tablet) 5 mg PO DAILY [facility] Last Admin: 12/25/21 08:47 Dose: 5 mg Documented by: Fluticasone Propionate (Fluticasone Propionate Nasal 16 Gm [place]) 1 spray NOSTRIL-B BID [facility] Last Admin: 12/25/21 10:56 Dose: 1 spray Documented by: Furosemide (Furosemide 20 Mg Tablet) 20 mg PO DAILY [facility]; Protocol Last Admin: 12/25/21 08:47 Dose: 20 mg Documented by: Hydroxyzine HCl (Hydroxyzine Hcl 25 Mg Tablet) 25 mg PO Q6H PRN PRN Reason: Anxiety Last Admin: 12/23/21 23:53 Dose: 25 mg Documented by: Levothyroxine Sodium (Levothyroxine Sodium 200 Mcg Tablet) 200 mcg PO DAILY@0600 [facility] Last Admin: 12/25/21 06:02 Dose: 200 mcg Documented by: Losartan Potassium (Losartan Potassium 50 Mg Tablet) 50 mg PO DAILY [facility]; Protocol Last Admin: 12/25/21 08:47 Dose: 50 mg Documented by: Magnesium Hydroxide (Milk Of Magnesia 30 Ml Oral.Susp) 30 ml PO DAILY PRN PRN Reason: Constipation Last Admin: 12/21/21 08:08 Dose: 30 ml Documented by: Omeprazole (Omeprazole 20 Mg Capsule.Dr) 20 mg PO DAILY@0600 [facility] Last Admin: 12/25/21 06:02 Dose: 20 mg Documented by: Pharmacy Consult (Consult Rx Perform Med Rec) 1 each MISCELLANE ONCE PRN PRN Reason: Consult order Potassium Chloride (Potassium Chloride Er 20 Meq Tab.Er.Prt) 20 meq PO DAILY [facility] Last Admin: 12/25/21 08:47 Dose: 20 meq Documented by: Tamsulosin HCl (Tamsulosin Hcl 0.4 Mg Capsule) 0.4 mg PO DAILY [facility] Last Admin: 12/25/21 08:47 Dose: 0.4 mg Documented by: Trazodone HCl (Trazodone Hcl 100 Mg Tablet) 100 mg PO BEDTIME PRN PRN Reason: Insomnia Allergies Allergies Allergy/AdvReac Type Severity Reaction Status Date / Time lisinopril [LISINOPRIL] Allergy Intermediate RASH Verified 12/20/21 11:56 Assessment & Plan Assessment & Plan (1) Bipolar 1 disorder: Status: Acute Code(s): F31.9 - Bipolar disorder, unspecified Plan Mr. Lugo is a 71 year-old male with hx of Bipolar Disorder type 1, admitted for increased scientology delusions, going to ex 's house asked not to go there by police, insisting on doing so because God had instructed him to do so. He was started on paliperidone on previous admission. Need to verified when was his last dose. PLAN: 1. Transferred to [facility] 2. Unsteady gait- seen by PT, no need for 1:1, 5mins checks. 3. Monitor urinary retention- kidney function given hx. 4. Obtain collateral information 5. Aftercare planning. continue depakote, Invega Sustenna 234mg IM q28 I spent minutes with the patient and/or on the patient floor today, greater than?50% of which was spent counseling/coordinating care. Reason for contiued inpatient stay Substantial Risk for: inability to function
[2021-12-23] MEDS: hydrOXYzine HCL 25 MG TABLET PO (23:53)
[2021-12-23] MEDS: traZODone HCL 50 MG TABLET PO (23:53)
[2021-12-24] MEDS: Levothyroxine Sodium 200 MCG TABLET PO (05:32)
[2021-12-24] MEDS: Omeprazole 20 MG CAPSULE.DR PO (05:32)
[2021-12-24] MEDS: Acetaminophen 325 MG TABLET 650 MG PO ×2 (05:33→20:28)
[2021-12-24 07:45] VITALS: BP 143/64; PULSE 58; RESP 18; TEMP 36.8; O2SAT 98
[2021-12-24] MEDS: Finasteride 5 MG TABLET PO (08:56)
[2021-12-24] MEDS: Furosemide 20 MG TABLET PO (08:56)
[2021-12-24] MEDS: Atorvastatin Calcium 40 MG TABLET PO (08:56)
[2021-12-24] MEDS: Losartan Potassium 50 MG TABLET PO (08:56)
[2021-12-24] MEDS: Tamsulosin HCL 0.4 MG CAPSULE PO (08:56)
[2021-12-24] MEDS: Divalproex Sodium 500 MG TABLET.DR PO ×2 (08:56→20:28)
[2021-12-24] MEDS: Potassium Chloride ER 20 MEQ TAB.ER.PRT PO (08:56)
--- NOTE | 2021-12-24 12:36 | P.PNPSI_ITS ---
Subjective Subjective Date of Service: 12/24/21 Reason For Visit: psychosis Subjective Notes: Conditional Voluntary Interim History: Per nursing, pt slept through the night, episodic irritability but able to be redirected. Pt continues to report that he hears God's voice. He reports God tells him that world will end and who will go to [facility]. He adamantly denies SI/HI. He also reports he hears Nathalie's voice. Pt continues to report that God telling him to go to this house in [place], where police found him and brought him home. Medication Compliance: Yes Side effects from medications: No Review of Systems Review of Systems Constitutional: No Fever, No Chills ENT/Mouth: No sore throat, No Rhinorrhea, No Swallowing Difficulty Eyes: No Eye Pain, No Swelling, No Redness Cardiovascular: No Chest Pain, No SOB, No Orthopnea, No Edema Respiratory: No Cough, No Sputum, No Wheezing, No dyspnea Gastrointestinal: No Nausea, No Vomiting, No Diarrhea, No abdominal Pain, No Hematochezia, No Melena Genitourinary: No Dysuria, No Urinary Frequency, No Hematuria Musculoskeletal: No joint pain, No Myalgias Skin: No Skin Lesions, No rash Neuro: No Weakness, No Numbness, No Dizziness, No Headache Psych: No Anxiety/Panic, No Depression Heme/Lymph: No Bruising, No Lymphadenopathy Endocrine: No Polyuria, No Polydipsia Constitutional: Reports frequent falls and Denies poor appetite Eyes: Reports no additional eye complaints Cardiovascular: Denies chest pain, Denies lightheadedness and Denies dyspnea Respiratory: Denies chest congestion and Denies dyspnea Gastrointestinal: Denies constipation, Reports GI cramping, Denies loose stools and Denies nausea Genitourinary: Reports urinary frequency Musculoskeletal: Reports back pain Reports frequent falls Mental Status Exam Mental Status Exam Narrative: Appearance: casually groomed, fair hygiene in NAD Behavior:cooperative psychomotor:resting and action bilat tremors, more prominent right side, unsteady gait Speech:clear, normal rate/rhythm/volume, spontaneous Thought process:tangential Thought content:baptism delusions AH of God. Mood: good Affect: constricted, somewhat irritable SI:denies HI:denies VH/AH:AH of God/ Nathalie, no CAH Delusions:baptism delusions Insight/judgment:impaired x 2 Memory/cog: alert, oriented to place, month, not situation, Diagnostics Vital Signs (24Hr): Vital Signs - 24 hr 12/24/21 21:46 12/25/21 08:00 Temperature 97 F 97.2 F Pulse Rate 72 64 Respiratory Rate 18 16 Blood Pressure 150/75 H 92/53 L Pulse Oximetry 97 96 BMI result Body Mass Index 28.9 Labs Results: 12/20/21 12:14 12/22/21 10:43 Imaging Radiology Impressions: [facility] Impressions Head CT 12/20/21 12:42 IMPRESSION: No acute intracranial findings. Medications Medications Current Medications Acetaminophen (Acetaminophen 325 Mg Tablet) 650 mg PO Q6H PRN PRN Reason: Headache/Pain Mild Scale (1-3) Last Admin: 12/25/21 02:47 Dose: 650 mg Documented by: Al Hydroxide/Mg Hydroxide (Magnesium Hydrox/Alum Hydrox 30 Ml Oral.Susp) 30 ml PO Q6H PRN PRN Reason: Heartburn/Nausea Albuterol Sulfate (Albuterol Sulfate (0.083%) 2.5 Mg/3 Ml Vial.Neb) 2.5 mg INHALE TID PRN PRN Reason: Shortness Of Breath Albuterol Sulfate (Albuterol Sulfate 90 Mcg 8 Gm Inhaler) 2 puff INHALE Q4H PRN PRN Reason: bronchospasm Last Admin: 12/25/21 12:06 Dose: 2 puff Documented by: Atorvastatin Calcium (Atorvastatin Calcium 40 Mg Tablet) 40 mg PO DAILY [facility] Last Admin: 12/25/21 08:47 Dose: 40 mg Documented by: Benztropine Mesylate (Benztropine Mesylate 0.5 Mg Tablet) 0.5 mg PO BID [facility] Last Admin: 12/25/21 10:59 Dose: 0.5 mg Documented by: Dicyclomine HCl (Dicyclomine Hcl 10 Mg Capsule) 20 mg PO TID PRN PRN Reason: for pain Divalproex Sodium (Divalproex Sodium 500 Mg Tablet.) 500 mg PO BID [facility] Last Admin: 12/25/21 08:47 Dose: 500 mg Documented by: Famotidine (Famotidine 20 Mg Tablet) 20 mg PO BID PRN PRN Reason: abdominal pain Finasteride (Finasteride 5 Mg Tablet) 5 mg PO DAILY [facility] Last Admin: 12/25/21 08:47 Dose: 5 mg Documented by: Fluticasone Propionate (Fluticasone Propionate Nasal 16 Gm [place]) 1 spray NOSTRIL-B BID [facility] Last Admin: 12/25/21 10:56 Dose: 1 spray Documented by: Furosemide (Furosemide 20 Mg Tablet) 20 mg PO DAILY [facility]; Protocol Last Admin: 12/25/21 08:47 Dose: 20 mg Documented by: Hydroxyzine HCl (Hydroxyzine Hcl 25 Mg Tablet) 25 mg PO Q6H PRN PRN Reason: Anxiety Last Admin: 12/23/21 23:53 Dose: 25 mg Documented by: Levothyroxine Sodium (Levothyroxine Sodium 200 Mcg Tablet) 200 mcg PO DAILY@0600 [facility] Last Admin: 12/25/21 06:02 Dose: 200 mcg Documented by: Losartan Potassium (Losartan Potassium 50 Mg Tablet) 50 mg PO DAILY [facility]; Protocol Last Admin: 12/25/21 08:47 Dose: 50 mg Documented by: Magnesium Hydroxide (Milk Of Magnesia 30 Ml Oral.Susp) 30 ml PO DAILY PRN PRN Reason: Constipation Last Admin: 12/21/21 08:08 Dose: 30 ml Documented by: Omeprazole (Omeprazole 20 Mg Capsule.Dr) 20 mg PO DAILY@0600 [facility] Last Admin: 12/25/21 06:02 Dose: 20 mg Documented by: Pharmacy Consult (Consult Rx Perform Med Rec) 1 each MISCELLANE ONCE PRN PRN Reason: Consult order Potassium Chloride (Potassium Chloride Er 20 Meq Tab.Er.Prt) 20 meq PO DAILY [facility] Last Admin: 12/25/21 08:47 Dose: 20 meq Documented by: Tamsulosin HCl (Tamsulosin Hcl 0.4 Mg Capsule) 0.4 mg PO DAILY [facility] Last Admin: 12/25/21 08:47 Dose: 0.4 mg Documented by: Trazodone HCl (Trazodone Hcl 100 Mg Tablet) 100 mg PO BEDTIME PRN PRN Reason: Insomnia Allergies Allergies Allergy/AdvReac Type Severity Reaction Status Date / Time lisinopril [LISINOPRIL] Allergy Intermediate RASH Verified 12/20/21 11:56 Assessment & Plan Assessment & Plan (1) Bipolar 1 disorder: Status: Acute Code(s): F31.9 - Bipolar disorder, unspecified Plan Mr. Lugo is a 71 year-old male with hx of Bipolar Disorder type 1, admitted for increased baptism delusions, going to ex 's house asked not to go there by police, insisting on doing so because God had instructed him to do so. He was started on paliperidone on previous admission. Need to verified when was his last dose. PLAN: 1. Transferred to [facility]. 2. Unsteady gait- seen by PT, no need for 1:1, 5mins checks. 3. Monitor urinary retention- kidney function given hx. 4. Obtain collateral information 5. Aftercare planning. continue depakote, Invega Sustenna 234mg IM q28 I spent minutes with the patient and/or on the patient floor today, greater than?50% of which was spent counseling/coordinating care. Reason for contiued inpatient stay Substantial Risk for: inability to function
--- NOTE | 2021-12-24 12:38 | P.PNPSI_ITS ---
Subjective Subjective Date of Service: 12/24/21 Reason For Visit: psychosis Subjective Notes: Conditional Voluntary Interim History: Per nursing, pt slept through the night, no behavioral concerns. Pt continues to report that he hears God's voice. He reports God tells him that world will end and who will go to [facility] or [facility]. He adamantly denies SI/HI. He also reports he hears Nathalie's voice. Pt continues to report that God telling him to go to this house in [place], where police found him and brought him home. Review of Systems Review of Systems Constitutional: No Fever, No Chills ENT/Mouth: No sore throat, No Rhinorrhea, No Swallowing Difficulty Eyes: No Eye Pain, No Swelling, No Redness Cardiovascular: No Chest Pain, No SOB, No Orthopnea, No Edema Respiratory: No Cough, No Sputum, No Wheezing, No dyspnea Gastrointestinal: No Nausea, No Vomiting, No Diarrhea, No abdominal Pain, No Hematochezia, No Melena Genitourinary: No Dysuria, No Urinary Frequency, No Hematuria Musculoskeletal: No joint pain, No Myalgias Skin: No Skin Lesions, No rash Neuro: No Weakness, No Numbness, No Dizziness, No Headache Psych: No Anxiety/Panic, No Depression Heme/Lymph: No Bruising, No Lymphadenopathy Endocrine: No Polyuria, No Polydipsia Constitutional: Reports frequent falls and Denies poor appetite Eyes: Reports no additional eye complaints Cardiovascular: Denies chest pain, Denies lightheadedness and Denies dyspnea Respiratory: Denies chest congestion and Denies dyspnea Gastrointestinal: Denies constipation, Reports GI cramping, Denies loose stools and Denies nausea Genitourinary: Reports urinary frequency Musculoskeletal: Reports back pain Reports frequent falls Mental Status Exam Mental Status Exam Narrative: Appearance: casually groomed, fair hygiene in NAD Behavior:cooperative psychomotor:resting and action bilat tremors, more prominent right side, unsteady gait Speech:clear, normal rate/rhythm/volume, spontaneous Thought process:tangential Thought content:yarsanism delusions AH of God. Mood: good Affect: constricted, somewhat irritable SI:denies HI:denies VH/AH:AH of God/ Nathalie, no CAH Delusions:yarsanism delusions Insight/judgment:impaired x 2 Memory/cog: alert, oriented to place, month, not situation, Diagnostics Vital Signs (24Hr): Vital Signs - 24 hr 12/24/21 21:46 12/25/21 08:00 Temperature 97 F 97.2 F Pulse Rate 72 64 Respiratory Rate 18 16 Blood Pressure 150/75 H 92/53 L Pulse Oximetry 97 96 BMI result Body Mass Index 28.9 Labs Results: 12/20/21 12:14 12/22/21 10:43 Imaging Radiology Impressions: ITS Impressions Head CT 12/20/21 12:42 IMPRESSION: No acute intracranial findings. Medications Medications Current Medications Acetaminophen (Acetaminophen 325 Mg Tablet) 650 mg PO Q6H PRN PRN Reason: Headache/Pain Mild Scale (1-3) Last Admin: 12/25/21 02:47 Dose: 650 mg Documented by: Al Hydroxide/Mg Hydroxide (Magnesium Hydrox/Alum Hydrox 30 Ml Oral.Susp) 30 ml PO Q6H PRN PRN Reason: Heartburn/Nausea Albuterol Sulfate (Albuterol Sulfate (0.083%) 2.5 Mg/3 Ml Vial.Neb) 2.5 mg INHALE TID PRN PRN Reason: Shortness Of Breath Albuterol Sulfate (Albuterol Sulfate 90 Mcg 8 Gm Inhaler) 2 puff INHALE Q4H PRN PRN Reason: bronchospasm Last Admin: 12/25/21 12:06 Dose: 2 puff Documented by: Atorvastatin Calcium (Atorvastatin Calcium 40 Mg Tablet) 40 mg PO DAILY [facility] Last Admin: 12/25/21 08:47 Dose: 40 mg Documented by: Benztropine Mesylate (Benztropine Mesylate 0.5 Mg Tablet) 0.5 mg PO BID [facility] Last Admin: 12/25/21 10:59 Dose: 0.5 mg Documented by: Dicyclomine HCl (Dicyclomine Hcl 10 Mg Capsule) 20 mg PO TID PRN PRN Reason: for pain Divalproex Sodium (Divalproex Sodium 500 Mg Tablet.Dr) 500 mg PO BID [facility] Last Admin: 12/25/21 08:47 Dose: 500 mg Documented by: Famotidine (Famotidine 20 Mg Tablet) 20 mg PO BID PRN PRN Reason: abdominal pain Finasteride (Finasteride 5 Mg Tablet) 5 mg PO DAILY [facility] Last Admin: 12/25/21 08:47 Dose: 5 mg Documented by: Fluticasone Propionate (Fluticasone Propionate Nasal 16 Gm [place]) 1 spray NOSTRIL-B BID [facility] Last Admin: 12/25/21 10:56 Dose: 1 spray Documented by: Furosemide (Furosemide 20 Mg Tablet) 20 mg PO DAILY [facility]; Protocol Last Admin: 12/25/21 08:47 Dose: 20 mg Documented by: Hydroxyzine HCl (Hydroxyzine Hcl 25 Mg Tablet) 25 mg PO Q6H PRN PRN Reason: Anxiety Last Admin: 12/23/21 23:53 Dose: 25 mg Documented by: Levothyroxine Sodium (Levothyroxine Sodium 200 Mcg Tablet) 200 mcg PO DAILY@0600 [facility] Last Admin: 12/25/21 06:02 Dose: 200 mcg Documented by: Losartan Potassium (Losartan Potassium 50 Mg Tablet) 50 mg PO DAILY [facility]; Protocol Last Admin: 12/25/21 08:47 Dose: 50 mg Documented by: Magnesium Hydroxide (Milk Of Magnesia 30 Ml Oral.Susp) 30 ml PO DAILY PRN PRN Reason: Constipation Last Admin: 12/21/21 08:08 Dose: 30 ml Documented by: Omeprazole (Omeprazole 20 Mg Capsule.Dr) 20 mg PO DAILY@0600 [facility] Last Admin: 12/25/21 06:02 Dose: 20 mg Documented by: Pharmacy Consult (Consult Rx Perform Med Rec) 1 each MISCELLANE ONCE PRN PRN Reason: Consult order Potassium Chloride (Potassium Chloride Er 20 Meq Tab.Er.Prt) 20 meq PO DAILY [facility] Last Admin: 12/25/21 08:47 Dose: 20 meq Documented by: Tamsulosin HCl (Tamsulosin Hcl 0.4 Mg Capsule) 0.4 mg PO DAILY [facility] Last Admin: 12/25/21 08:47 Dose: 0.4 mg Documented by: Trazodone HCl (Trazodone Hcl 100 Mg Tablet) 100 mg PO BEDTIME PRN PRN Reason: Insomnia Allergies Allergies Allergy/AdvReac Type Severity Reaction Status Date / Time lisinopril [LISINOPRIL] Allergy Intermediate RASH Verified 12/20/21 11:56 Assessment & Plan Assessment & Plan (1) Bipolar 1 disorder: Status: Acute Code(s): F31.9 - Bipolar disorder, unspecified Plan Mr. Lugo is a 71 year-old male with hx of Bipolar Disorder type 1, admitted for increased yarsanism delusions, going to ex 's house asked not to go there by police, insisting on doing so because God had instructed him to do so. He was started on paliperidone on previous admission. Need to verified when was his last dose. PLAN: 1. Transferred to [facility] 2. Unsteady gait- seen by PT, no need for 1:1, 5mins checks. 3. Monitor urinary retention- kidney function given hx. 4. Obtain collateral information 5. Aftercare planning. continue depakote, Invega Sustenna 234mg IM q28 I spent minutes with the patient and/or on the patient floor today, greater than?50% of which was spent counseling/coordinating care. Reason for contiued inpatient stay Substantial Risk for: inability to function
[2021-12-24 21:46] VITALS: BP 150/75; PULSE 72; RESP 18; TEMP 36.1; O2SAT 97
[2021-12-25] MEDS: Acetaminophen 325 MG TABLET 650 MG PO ×2 (02:47→17:22)
[2021-12-25] MEDS: Omeprazole 20 MG CAPSULE.DR PO (06:02)
[2021-12-25] MEDS: Levothyroxine Sodium 200 MCG TABLET PO (06:02)
[2021-12-25 08:00] VITALS: BP 92/53; PULSE 64; RESP 16; TEMP 36.2; O2SAT 96
[2021-12-25] MEDS: Tamsulosin HCL 0.4 MG CAPSULE PO (08:47)
[2021-12-25] MEDS: Divalproex Sodium 500 MG TABLET.DR PO ×2 (08:47→20:25)
[2021-12-25] MEDS: Potassium Chloride ER 20 MEQ TAB.ER.PRT PO (08:47)
[2021-12-25] MEDS: Furosemide 20 MG TABLET PO (08:47)
[2021-12-25] MEDS: Atorvastatin Calcium 40 MG TABLET PO (08:47)
[2021-12-25] MEDS: Losartan Potassium 50 MG TABLET PO (08:47)
[2021-12-25] MEDS: Finasteride 5 MG TABLET PO (08:47)
[2021-12-25] MEDS: Fluticasone Propionate Nasal 16 GM SPRAY 1 SPRAY NOSTRIL-B (10:56)
[2021-12-25] MEDS: Benztropine Mesylate 0.5 MG TABLET PO ×2 (10:59→20:25)
--- NOTE | 2021-12-25 11:35 | P.PNPSI_ITS ---
Subjective Subjective Date of Service: 12/25/21 Reason For Visit: psychosis Subjective Notes: Conditional Voluntary Interim History: Per nursing, pt slept through the night, no behavioral concerns. Pt seen with SARAH Mckeon. Pt continues to report that he hears God's voice. He adamantly denies SI/HI. He also reports he hears Nathalie's voice. Pt continues to report that God is telling him to go to this house in [place], where police found him and brought him to the hospital. Pt reports he thinks the police was wrong in not letting him entered a house is no longer his because God was instructing him to do so. Pt asked to be discharged but in agreement to continue treatment when we explained that VNA has to be set up, he needs to be more stable before he can safely be discharged back to community, to which pt stated: do what you need to do, God Bless you. Medication Compliance: Yes Side effects from medications: No Review of Systems Review of Systems Constitutional: No Fever, No Chills ENT/Mouth: No sore throat, No Rhinorrhea, No Swallowing Difficulty Eyes: No Eye Pain, No Swelling, No Redness Cardiovascular: No Chest Pain, No SOB, No Orthopnea, No Edema Respiratory: No Cough, No Sputum, No Wheezing, No dyspnea Gastrointestinal: No Nausea, No Vomiting, No Diarrhea, No abdominal Pain, No Hematochezia, No Melena Genitourinary: No Dysuria, No Urinary Frequency, No Hematuria Musculoskeletal: No joint pain, No Myalgias Skin: No Skin Lesions, No rash Neuro: No Weakness, No Numbness, No Dizziness, No Headache Psych: No Anxiety/Panic, No Depression Heme/Lymph: No Bruising, No Lymphadenopathy Endocrine: No Polyuria, No Polydipsia Constitutional: Reports frequent falls and Denies poor appetite Eyes: Reports no additional eye complaints Cardiovascular: Denies chest pain, Denies lightheadedness and Denies dyspnea Respiratory: Denies chest congestion and Denies dyspnea Gastrointestinal: Denies constipation, Reports GI cramping, Denies loose stools and Denies nausea Genitourinary: Reports urinary frequency Musculoskeletal: Reports back pain Reports frequent falls Mental Status Exam Mental Status Exam Narrative: Appearance: casually groomed, fair hygiene in NAD Behavior:cooperative psychomotor:resting and action bilat tremors, more prominent right side, unsteady gait Speech:clear, normal rate/rhythm/volume, spontaneous Thought process:tangential Thought content:lutheran delusions AH of God. Mood: good Affect: constricted, somewhat irritable SI:denies HI:denies VH/AH:AH of God/ Nathalie, no CAH Delusions:lutheran delusions Insight/judgment:impaired x 2 Memory/cog: alert, oriented to place, month, not situation, Diagnostics Vital Signs (24Hr): Vital Signs - 24 hr 12/24/21 21:46 12/25/21 08:00 Temperature 97 F 97.2 F Pulse Rate 72 64 Respiratory Rate 18 16 Blood Pressure 150/75 H 92/53 L Pulse Oximetry 97 96 BMI result Body Mass Index 28.9 Labs Results: 12/20/21 12:14 12/22/21 10:43 Imaging Radiology Impressions: ITS Impressions Head CT 12/20/21 12:42 IMPRESSION: No acute intracranial findings. Medications Medications Current Medications Acetaminophen (Acetaminophen 325 Mg Tablet) 650 mg PO Q6H PRN PRN Reason: Headache/Pain Mild Scale (1-3) Last Admin: 12/25/21 02:47 Dose: 650 mg Documented by: Al Hydroxide/Mg Hydroxide (Magnesium Hydrox/Alum Hydrox 30 Ml Oral.Susp) 30 ml PO Q6H PRN PRN Reason: Heartburn/Nausea Albuterol Sulfate (Albuterol Sulfate (0.083%) 2.5 Mg/3 Ml Vial.Neb) 2.5 mg INHALE TID PRN PRN Reason: Shortness Of Breath Albuterol Sulfate (Albuterol Sulfate 90 Mcg 8 Gm Inhaler) 2 puff INHALE Q4H PRN PRN Reason: bronchospasm Last Admin: 12/25/21 12:06 Dose: 2 puff Documented by: Atorvastatin Calcium (Atorvastatin Calcium 40 Mg Tablet) 40 mg PO DAILY [facility] Last Admin: 12/25/21 08:47 Dose: 40 mg Documented by: Benztropine Mesylate (Benztropine Mesylate 0.5 Mg Tablet) 0.5 mg PO BID [facility] Last Admin: 12/25/21 10:59 Dose: 0.5 mg Documented by: Dicyclomine HCl (Dicyclomine Hcl 10 Mg Capsule) 20 mg PO TID PRN PRN Reason: for pain Divalproex Sodium (Divalproex Sodium 500 Mg Tablet.) 500 mg PO BID [facility] Last Admin: 12/25/21 08:47 Dose: 500 mg Documented by: Famotidine (Famotidine 20 Mg Tablet) 20 mg PO BID PRN PRN Reason: abdominal pain Finasteride (Finasteride 5 Mg Tablet) 5 mg PO DAILY [facility] Last Admin: 12/25/21 08:47 Dose: 5 mg Documented by: Fluticasone Propionate (Fluticasone Propionate Nasal 16 Gm [place]) 1 spray NOSTRIL-B BID [facility] Last Admin: 12/25/21 10:56 Dose: 1 spray Documented by: Furosemide (Furosemide 20 Mg Tablet) 20 mg PO DAILY [facility]; Protocol Last Admin: 12/25/21 08:47 Dose: 20 mg Documented by: Hydroxyzine HCl (Hydroxyzine Hcl 25 Mg Tablet) 25 mg PO Q6H PRN PRN Reason: Anxiety Last Admin: 12/23/21 23:53 Dose: 25 mg Documented by: Levothyroxine Sodium (Levothyroxine Sodium 200 Mcg Tablet) 200 mcg PO DAILY@0600 [facility] Last Admin: 12/25/21 06:02 Dose: 200 mcg Documented by: Losartan Potassium (Losartan Potassium 50 Mg Tablet) 50 mg PO DAILY [facility]; Protocol Last Admin: 12/25/21 08:47 Dose: 50 mg Documented by: Magnesium Hydroxide (Milk Of Magnesia 30 Ml Oral.Susp) 30 ml PO DAILY PRN PRN Reason: Constipation Last Admin: 12/21/21 08:08 Dose: 30 ml Documented by: Omeprazole (Omeprazole 20 Mg Capsule.) 20 mg PO DAILY@0600 [facility] Last Admin: 12/25/21 06:02 Dose: 20 mg Documented by: Pharmacy Consult (Consult Rx Perform Med Rec) 1 each MISCELLANE ONCE PRN PRN Reason: Consult order Potassium Chloride (Potassium Chloride Er 20 Meq Tab.Er.Prt) 20 meq PO DAILY [facility] Last Admin: 12/25/21 08:47 Dose: 20 meq Documented by: Tamsulosin HCl (Tamsulosin Hcl 0.4 Mg Capsule) 0.4 mg PO DAILY [facility] Last Admin: 12/25/21 08:47 Dose: 0.4 mg Documented by: Trazodone HCl (Trazodone Hcl 100 Mg Tablet) 100 mg PO BEDTIME PRN PRN Reason: Insomnia Allergies Allergies Allergy/AdvReac Type Severity Reaction Status Date / Time lisinopril [LISINOPRIL] Allergy Intermediate RASH Verified 12/20/21 11:56 Assessment & Plan Assessment & Plan (1) Bipolar 1 disorder: Status: Acute Code(s): F31.9 - Bipolar disorder, unspecified Plan Mr. Lugo is a 71 year-old male with hx of Bipolar Disorder type 1, admitted for increased lutheran delusions, going to ex 's house asked not to go there by police, insisting on doing so because God had instructed him to do so. He was started on paliperidone on previous admission. PLAN: 1. Transferred to [facility]. 2. Unsteady gait- seen by PT, no need for 1:1, 5mins checks. 3. Monitor urinary retention- kidney function given hx. 4. Obtain collateral information 5. Aftercare planning. continue depakote, Invega Sustenna 234mg IM q28, depakote level scheduled for 12/26/21. this [facility] called [facility]- they have not seen pt since last year. he was referred but when discharged he did not let them in and they close his case. I spent minutes with the patient and/or on the patient floor today, gr eater than?50% of which was spent counseling/coordinating care. Reason for contiued inpatient stay Substantial Risk for: inability to function
[2021-12-25] MEDS: Albuterol Sulfate 90 MCG 8 GM INHALER 2 PUFF INHALE (12:06)
[2021-12-25 20:00] VITALS: BP 99/55; PULSE 64; RESP 17; TEMP 36.2; O2SAT 98
[2021-12-25] MEDS: Dicyclomine HCl 10 MG CAPSULE 20 MG PO (20:24)
[2021-12-25] MEDS: Famotidine 20 MG TABLET PO (20:24)
[2021-12-25] MEDS: traZODone HCL 100 MG TABLET PO (20:25)
[2021-12-26] MEDS: traZODone HCL 100 MG TABLET PO (00:19)
[2021-12-26] MEDS: Acetaminophen 325 MG TABLET 650 MG PO ×3 (00:19→20:29)
[2021-12-26] MEDS: Levothyroxine Sodium 200 MCG TABLET PO (05:48)
[2021-12-26] MEDS: Omeprazole 20 MG CAPSULE.DR PO (05:48)
[2021-12-26 06:00] VITALS: BP 100/60; PULSE 60; RESP 16; TEMP 36.2; O2SAT 98
[2021-12-26 07:00] VITALS: BMI 29.9
[2021-12-26] MEDS: Divalproex Sodium 500 MG TABLET.DR PO ×2 (09:01→20:28)
[2021-12-26] MEDS: Furosemide 20 MG TABLET PO (09:01)
[2021-12-26] MEDS: Finasteride 5 MG TABLET PO (09:01)
[2021-12-26] MEDS: Benztropine Mesylate 0.5 MG TABLET PO ×2 (09:01→20:28)
[2021-12-26] MEDS: Atorvastatin Calcium 40 MG TABLET PO (09:01)
[2021-12-26] MEDS: Losartan Potassium 50 MG TABLET PO (09:01)
[2021-12-26] MEDS: Tamsulosin HCL 0.4 MG CAPSULE PO (09:01)
[2021-12-26] MEDS: Potassium Chloride ER 20 MEQ TAB.ER.PRT PO (09:01)
[2021-12-26 10:06] LABS: Valproate 40.4 mcg/mL (50.0-100.0)
--- NOTE | 2021-12-26 11:23 | HO.PSYCHPN ---
Subjective Subjective Date of Service: 12/26/21 Reason For Visit: psychosis Diagnostics Vital Signs (24Hr): Vital Signs - 24 hr 12/26/21 18:00 12/27/21 06:00 Temperature 98.6 F 97.6 F Pulse Rate 71 80 Respiratory Rate 16 14 Blood Pressure 137/59 L 119/60 Pulse Oximetry 97 95 BMI result Body Mass Index 29.9 Labs Results: 12/20/21 12:14 12/22/21 10:43 Labs: Laboratory Results - last 48 hr 12/26/21 08:28 Valproic Acid 40.4 L Imaging Radiology Impressions: ITS Impressions Head CT 12/20/21 12:42 IMPRESSION: No acute intracranial findings. Medications Medications Current Medications Acetaminophen (Acetaminophen 325 Mg Tablet) 650 mg PO Q6H PRN PRN Reason: Headache/Pain Mild Scale (1-3) Last Admin: 12/26/21 20:29 Dose: 650 mg Documented by: Al Hydroxide/Mg Hydroxide (Magnesium Hydrox/Alum Hydrox 30 Ml Oral.Susp) 30 ml PO Q6H PRN PRN Reason: Heartburn/Nausea Albuterol Sulfate (Albuterol Sulfate (0.083%) 2.5 Mg/3 Ml Vial.Neb) 2.5 mg INHALE TID PRN PRN Reason: Shortness Of Breath Albuterol Sulfate (Albuterol Sulfate 90 Mcg 8 Gm Inhaler) 2 puff INHALE Q4H PRN PRN Reason: bronchospasm Last Admin: 12/25/21 12:06 Dose: 2 puff Documented by: Atorvastatin Calcium (Atorvastatin Calcium 40 Mg Tablet) 40 mg PO DAILY [facility] Last Admin: 12/27/21 11:11 Dose: 40 mg Documented by: Benztropine Mesylate (Benztropine Mesylate 0.5 Mg Tablet) 0.5 mg PO BID [facility] Last Admin: 12/27/21 11:11 Dose: 0.5 mg Documented by: Dicyclomine HCl (Dicyclomine Hcl 10 Mg Capsule) 20 mg PO TID PRN PRN Reason: for pain Last Admin: 12/25/21 20:24 Dose: 20 mg Documented by: Divalproex Sodium (Divalproex Sodium 500 Mg Tablet.) 500 mg PO BID [facility] Last Admin: 12/27/21 11:12 Dose: 500 mg Documented by: Donepezil HCl (Donepezil Hcl 5 Mg Tablet) 5 mg PO BEDTIME [facility] Famotidine (Famotidine 20 Mg Tablet) 20 mg PO BID PRN PRN Reason: abdominal pain Last Admin: 12/25/21 20:24 Dose: 20 mg Documented by: Finasteride (Finasteride 5 Mg Tablet) 5 mg PO DAILY [facility] Last Admin: 12/27/21 11:11 Dose: 5 mg Documented by: Fluticasone Propionate (Fluticasone Propionate Nasal 16 Gm [place]) 1 spray NOSTRIL-B BID [facility] Last Admin: 12/27/21 11:12 Dose: 1 spray Documented by: Furosemide (Furosemide 20 Mg Tablet) 20 mg PO DAILY [facility]; Protocol Last Admin: 12/27/21 11:10 Dose: 20 mg Documented by: Hydroxyzine HCl (Hydroxyzine Hcl 25 Mg Tablet) 25 mg PO Q6H PRN PRN Reason: Anxiety Last Admin: 12/26/21 20:30 Dose: 25 mg Documented by: Levothyroxine Sodium (Levothyroxine Sodium 200 Mcg Tablet) 200 mcg PO DAILY@0600 [facility] Last Admin: 12/27/21 06:05 Dose: 200 mcg Documented by: Losartan Potassium (Losartan Potassium 50 Mg Tablet) 50 mg PO DAILY [facility]; Protocol Last Admin: 12/27/21 11:11 Dose: 50 mg Documented by: Magnesium Hydroxide (Milk Of Magnesia 30 Ml Oral.Susp) 30 ml PO DAILY PRN PRN Reason: Constipation Last Admin: 12/21/21 08:08 Dose: 30 ml Documented by: Omeprazole (Omeprazole 20 Mg Capsule.Dr) 20 mg PO DAILY@0600 [facility] Last Admin: 12/27/21 06:05 Dose: 20 mg Documented by: Pharmacy Consult (Consult Rx Perform Med Rec) 1 each MISCELLANE ONCE PRN PRN Reason: Consult order Potassium Chloride (Potassium Chloride Er 20 Meq Tab.Er.Prt) 20 meq PO DAILY [facility] Last Admin: 12/27/21 11:11 Dose: 20 meq Documented by: Pramipexole Dihydrochloride (Pramipexole Di-Hcl 0.125 Mg Tablet) 0.125 mg PO TID [facility] Tamsulosin HCl (Tamsulosin Hcl 0.4 Mg Capsule) 0.4 mg PO DAILY [facility] Last Admin: 12/27/21 11:12 Dose: 0.4 mg Documented by: Trazodone HCl (Trazodone Hcl 100 Mg Tablet) 100 mg PO BEDTIME PRN PRN Reason: Insomnia Last Admin: 12/26/21 00:19 Dose: 100 mg Documented by: Allergies Allergies Allergy/AdvReac Type Severity Reaction Status Date / Time lisinopril [LISINOPRIL] Allergy Intermediate RASH Verified 12/20/21 11:56 Assessment & Plan Assessment & Plan (1) Parkinsonism: Status: Acute Code(s): G20 - Parkinson's disease Assessment and Plan: [id number] parkinsonism likely related to exposure to antipsychotic medicines worsened with underlying dementia or diffuse cerebral degeneration. Main emphasis would be control of psychiatric medicines with parkinsonism taken as side effect of medicines. I would recommend starting him on benztropine 0.5 twice a day. A trial of carbidopa levodopa 25/100 3 times a day can also be given for a day or 2 to see if that would improve his ambulation neuro note above read and appreciated . Plan case reviewed with dr riley with mother pt seen bradykinetic hunched over requires walker ? from invega sustena may need tochange to alternative start cogentin consider dopamine agonist pt with grandiose delusions I spent minutes with the patient and/or on the patient floor today, greater than?50% of which was spent counseling/coordinating care. Reason for contiued inpatient stay Substantial Risk for: inability to function and rapid decompensation
--- NOTE | 2021-12-26 16:58 | P.CNNE_ITS ---
History of Present Illness Data of Consult Service Date: 12/26/21 Primary Care Provider: Samuel Schneider MD HPI Reason for consult: Parkinsonian feature 71 years old man with underlying history of bipolar disorder with psychotic features who probably has taken antipsychotic medicines I was asked to see for possibility of Parkinson's. He was brought to hospital by police after he did not stay away from his ex- who had restraining orders. He was noted to be psychotic and also had physical features suggestive of Parkinson's. Review of Systems Review of Systems: No recent cold or flu-like illness and no drug abuse. [facility] Past Medical History Medical History Abdominal pain, chronic, right lower quadrant Acquired hypothyroidism Allergic rhinitis Anxiety Benign essential hypertension Benign prostatic hyperplasia with urinary obstruction CAD (coronary artery disease) Constipation COPD (chronic obstructive pulmonary disease) Diabetes mellitus GERD (gastroesophageal reflux disease) Insomnia Obesity (BMI 30-39.9) Osteoarthritis Pure hypercholesterolemia Vitamin D deficiency Family History Family History Father Stroke CVD (cerebrovascular disease) Mother Hypertension Surgical History Surgical History History of arthroscopic knee surgery History of cardiac catheterization History of colectomy History of esophagogastroduodenoscopy (EGD) History of excision of pilonidal cyst History of eye surgery History of skin graft Hx of colonoscopy Social History Social History Household Members: None Housing: Apartment Do you presently have visiting nurse or other home services: Yes (Had [facility] ([facility]) and [facility]) Unable to assess alcohol history related to: Refusing to respond Alcohol intake: never Patient Tobacco Use Status: Former Tobacco user Quit Date: long time ago Tobacco use type: Cigarette and Cigar Years Smoked: unknown Smoked in Last 30 Days: No e-Cigarette/Vaping Use: Never Used Second Hand Smoke Exposure: No Use of substances other than those prescribed or required for medical reasons: No Currently Displaying Signs/Symptoms of Drug Intoxication Withdrawal: No Any prior treatment program specific to substance use: No Have you been hit, kicked, punched, or otherwise hurt by someone within the past year? If so, by whom?: No Do you feel safe in your current relationship?: No Current Relationship Is there a partner from a previous relationship who is making you feel unsafe now?: No Are you made to feel afraid or neglected: No Spiritual Healthcare Practices: none identified Hindu Healthcare Practices: Sikh Cultural Healthcare Practices: None identified Advance Directives: No Advance Directives Information Provided: Yes Advance Directives on File: No Healthcare Proxy: No Guardian: No Do you have thoughts of harming others: None Do you have a plan to hurt others: No Plan Recently lost weight without trying: No Eating poorly because of decreased appetite: No Nutrition Risks: No Nutritional Risk Poor oral hygiene: Yes service: No Current occupational status: retired Sexual orientation: Straight/Heterosexual Meds Allergies Allergy/AdvReac Type Severity Reaction Status Date / Time lisinopril [LISINOPRIL] Allergy Intermediate RASH Verified 12/20/21 11:56 Active Medications: Current Medications Acetaminophen (Acetaminophen 325 Mg Tablet) 650 mg PO Q6H PRN PRN Reason: Headache/Pain Mild Scale (1-3) Last Admin: 12/26/21 05:44 Dose: 650 mg Documented by: Al Hydroxide/Mg Hydroxide (Magnesium Hydrox/Alum Hydrox 30 Ml Oral.Susp) 30 ml PO Q6H PRN PRN Reason: Heartburn/Nausea Albuterol Sulfate (Albuterol Sulfate (0.083%) 2.5 Mg/3 Ml Vial.Neb) 2.5 mg INHALE TID PRN PRN Reason: Shortness Of Breath Albuterol Sulfate (Albuterol Sulfate 90 Mcg 8 Gm Inhaler) 2 puff INHALE Q4H PRN PRN Reason: bronchospasm Last Admin: 12/25/21 12:06 Dose: 2 puff Documented by: Atorvastatin Calcium (Atorvastatin Calcium 40 Mg Tablet) 40 mg PO DAILY [facility] Last Admin: 12/26/21 09:01 Dose: 40 mg Documented by: Benztropine Mesylate (Benztropine Mesylate 0.5 Mg Tablet) 0.5 mg PO BID [facility] Last Admin: 12/26/21 09:01 Dose: 0.5 mg Documented by: Dicyclomine HCl (Dicyclomine Hcl 10 Mg Capsule) 20 mg PO TID PRN PRN Reason: for pain Last Admin: 12/25/21 20:24 Dose: 20 mg Documented by: Divalproex Sodium (Divalproex Sodium 500 Mg Tablet.) 500 mg PO BID [facility] Last Admin: 12/26/21 09:01 Dose: 500 mg Documented by: Famotidine (Famotidine 20 Mg Tablet) 20 mg PO BID PRN PRN Reason: abdominal pain Last Admin: 12/25/21 20:24 Dose: 20 mg Documented by: Finasteride (Finasteride 5 Mg Tablet) 5 mg PO DAILY [facility] Last Admin: 12/26/21 09:01 Dose: 5 mg Documented by: Fluticasone Propionate (Fluticasone Propionate Nasal 16 Gm [place]) 1 spray NOSTRIL-B BID [facility] Last Admin: 12/26/21 09:01 Dose: Not Given Documented by: Furosemide (Furosemide 20 Mg Tablet) 20 mg PO DAILY [facility]; Protocol Last Admin: 12/26/21 09:01 Dose: 20 mg Documented by: Hydroxyzine HCl (Hydroxyzine Hcl 25 Mg Tablet) 25 mg PO Q6H PRN PRN Reason: Anxiety Last Admin: 12/23/21 23:53 Dose: 25 mg Documented by: Levothyroxine Sodium (Levothyroxine Sodium 200 Mcg Tablet) 200 mcg PO DAILY@0600 [facility] Last Admin: 12/26/21 05:48 Dose: 200 mcg Documented by: Losartan Potassium (Losartan Potassium 50 Mg Tablet) 50 mg PO DAILY [facility]; Shad col Last Admin: 12/26/21 09:01 Dose: 50 mg Documented by: Magnesium Hydroxide (Milk Of Magnesia 30 Ml Oral.Susp) 30 ml PO DAILY PRN PRN Reason: Constipation Last Admin: 12/21/21 08:08 Dose: 30 ml Documented by: Omeprazole (Omeprazole 20 Mg Capsule.) 20 mg PO DAILY@0600 [facility] Last Admin: 12/26/21 05:48 Dose: 20 mg Documented by: Pharmacy Consult (Consult Rx Perform Med Rec) 1 each MISCELLANE ONCE PRN PRN Reason: Consult order Potassium Chloride (Potassium Chloride Er 20 Meq Tab.Er.Prt) 20 meq PO DAILY [facility] Last Admin: 12/26/21 09:01 Dose: 20 meq Documented by: Tamsulosin HCl (Tamsulosin Hcl 0.4 Mg Capsule) 0.4 mg PO DAILY [facility] Last Admin: 12/26/21 09:01 Dose: 0.4 mg Documented by: Trazodone HCl (Trazodone Hcl 100 Mg Tablet) 100 mg PO BEDTIME PRN PRN Reason: Insomnia Last Admin: 12/26/21 00:19 Dose: 100 mg Documented by: Home Medications Medication Instructions Recorded Confirmed Last Taken Type furosemide 20 mg tablet 20 mg PO DAILY 11/22/21 12/20/21 Unknown History levothyroxine 200 mcg tablet 200 mcg PO DAILY 11/22/21 12/20/21 Unknown History albuterol sulfate 2.5 mg INHALATION TID PRN 12/20/21 12/20/21 Unknown History famotidine 20 mg tablet 1 tab PO BID PRN 12/20/21 12/20/21 Unknown History Physical Exam Vital Signs: Vital Signs: Last Vital Signs Temp 97.2 F 12/25/21 20:00 Pulse 64 12/25/21 20:00 Resp 17 12/25/21 20:00 BP 99/55 L 12/25/21 20:00 Pulse Ox 98 12/25/21 20:00 BMI result Body Mass Index 28.9 Neuro: Other: He was somewhat sleepy but able to open eyes and make conversation follow commands. He made appropriate comments. He had [id number] generalized bradykinesia mild bilateral pill rolling hand tremor mild cogwheeling rigidity in upper extremities decreased arm swing stooped posture upon standing and slope a slightly wide-based gait. Facial expression blinking with diminished. Deep tendon reflexes were absent with flexor plantars. Face was symmetrical. Results Labs CBC & Chem 7: 12/20/21 12:14 12/22/21 10:43 Labs: Noncontrast head CT revealed diffuse cerebral and cerebellar atrophy of mild nature. Assessment and Plan (1) Parkinsonism: Status: Acute [id number] parkinsonism likely related to exposure to antipsychotic medicines worsened with underlying dementia or diffuse cerebral degeneration. Main emphasis would be control of psychiatric medicines with parkinsonism taken as side effect of medicines. I would recommend starting him on benztropine 0.5 twice a day. A trial of carbidopa levodopa 25/100 3 times a day can also be given for a day or 2 to see if that would improve his ambulation. Procedures Date of Service Date of Service: 12/26/21
--- NOTE | 2021-12-26 17:33 | P.PNPSI_ITS ---
Subjective Subjective Date of Service: 12/26/21 Reason For Visit: psychosis Subjective Notes: Conditional Voluntary Guardianship: No Interim History: Pt psychomotor retarded withdrawn seen by neurology significant eps Medication Compliance: Yes Side effects from medications: Yes Review of Systems Acute medical concerns: Yes hx urinary retention Mental Status Exam Mental Status Exam Narrative: Appearance: casually groomed, fair hygiene in NAD Behavior:cooperative psychomotor:resting and action bilat tremors, more prominent right side, unsteady gait rigidity,hunched over Speech:clear, normal rate/rhythm/volume, spontaneous Thought process:tangential Thought content:hinduism delusions AH of God. Mood: good Affect: constricted, somewhat irritable SI:denies HI:denies VH/AH:AH of God/ Nathalie, Delusions:hinduism delusions Insight/judgment:impaired x 2 Memory/cog: alert, oriented to place, month, not situation, Diagnostics Vital Signs (24Hr): Vital Signs - 24 hr 12/25/21 20:00 Temperature 97.2 F Pulse Rate 64 Respiratory Rate 17 Blood Pressure 99/55 L Pulse Oximetry 98 BMI result Body Mass Index 28.9 Labs Results: 12/20/21 12:14 12/22/21 10:43 Labs: Laboratory Results - last 48 hr 12/26/21 08:28 Valproic Acid 40.4 L Imaging Radiology Impressions: ITS Impressions Head CT 12/20/21 12:42 IMPRESSION: No acute intracranial findings. Medications Medications Current Medications Acetaminophen (Acetaminophen 325 Mg Tablet) 650 mg PO Q6H PRN PRN Reason: Headache/Pain Mild Scale (1-3) Last Admin: 12/26/21 05:44 Dose: 650 mg Documented by: Al Hydroxide/Mg Hydroxide (Magnesium Hydrox/Alum Hydrox 30 Ml Oral.Susp) 30 ml PO Q6H PRN PRN Reason: Heartburn/Nausea Albuterol Sulfate (Albuterol Sulfate (0.083%) 2.5 Mg/3 Ml Vial.Neb) 2.5 mg INHALE TID PRN PRN Reason: Shortness Of Breath Albuterol Sulfate (Albuterol Sulfate 90 Mcg 8 Gm Inhaler) 2 puff INHALE Q4H PRN PRN Reason: bronchospasm Last Admin: 12/25/21 12:06 Dose: 2 puff Documented by: Atorvastatin Calcium (Atorvastatin Calcium 40 Mg Tablet) 40 mg PO DAILY [facility] Last Admin: 12/26/21 09:01 Dose: 40 mg Documented by: Benztropine Mesylate (Benztropine Mesylate 0.5 Mg Tablet) 0.5 mg PO BID [facility] Last Admin: 12/26/21 09:01 Dose: 0.5 mg Documented by: Dicyclomine HCl (Dicyclomine Hcl 10 Mg Capsule) 20 mg PO TID PRN PRN Reason: for pain Last Admin: 12/25/21 20:24 Dose: 20 mg Documented by: Divalproex Sodium (Divalproex Sodium 500 Mg Tablet.) 500 mg PO BID [facility] Last Admin: 12/26/21 09:01 Dose: 500 mg Documented by: Famotidine (Famotidine 20 Mg Tablet) 20 mg PO BID PRN PRN Reason: abdominal pain Last Admin: 12/25/21 20:24 Dose: 20 mg Documented by: Finasteride (Finasteride 5 Mg Tablet) 5 mg PO DAILY [facility] Last Admin: 12/26/21 09:01 Dose: 5 mg Documented by: Fluticasone Propionate (Fluticasone Propionate Nasal 16 Gm [place]) 1 spray NOSTRIL-B BID [facility] Last Admin: 12/26/21 09:01 Dose: Not Given Documented by: Furosemide (Furosemide 20 Mg Tablet) 20 mg PO DAILY [facility]; Protocol Last Admin: 12/26/21 09:01 Dose: 20 mg Documented by: Hydroxyzine HCl (Hydroxyzine Hcl 25 Mg Tablet) 25 mg PO Q6H PRN PRN Reason: Anxiety Last Admin: 12/23/21 23:53 Dose: 25 mg Documented by: Levothyroxine Sodium (Levothyroxine Sodium 200 Mcg Tablet) 200 mcg PO DAILY@0600 [facility] Last Admin: 12/26/21 05:48 Dose: 200 mcg Documented by: Losartan Potassium (Losartan Potassium 50 Mg Tablet) 50 mg PO DAILY [facility]; Protocol Last Admin: 12/26/21 09:01 Dose: 50 mg Documented by: Magnesium Hydroxide (Milk Of Magnesia 30 Ml Oral.Susp) 30 ml PO DAILY PRN PRN Reason: Constipation Last Admin: 12/21/21 08:08 Dose: 30 ml Documented by: Omeprazole (Omeprazole 20 Mg Capsule.) 20 mg PO DAILY@0600 [facility] Last Admin: 12/26/21 05:48 Dose: 20 mg Documented by: Pharmacy Consult (Consult Rx Perform Med Rec) 1 each MISCELLANE ONCE PRN PRN Reason: Consult order Potassium Chloride (Potassium Chloride Er 20 Meq Tab.Er.Prt) 20 meq PO DAILY [facility] Last Admin: 12/26/21 09:01 Dose: 20 meq Documented by: Tamsulosin HCl (Tamsulosin Hcl 0.4 Mg Capsule) 0.4 mg PO DAILY [facility] Last Admin: 12/26/21 09:01 Dose: 0.4 mg Documented by: Trazodone HCl (Trazodone Hcl 100 Mg Tablet) 100 mg PO BEDTIME PRN PRN Reason: Insomnia Last Admin: 12/26/21 00:19 Dose: 100 mg Documented by: Allergies Allergies Allergy/AdvReac Type Severity Reaction Status Date / Time lisinopril [LISINOPRIL] Allergy Intermediate RASH Verified 12/20/21 11:56 Assessment & Plan Assessment & Plan (1) Parkinsonism: Status: Acute Code(s): G20 - Parkinson's disease Assessment and Plan: [id number] parkinsonism likely related to exposure to antipsychotic medicines worsened with underlying dementia or diffuse cerebral degeneration. Main emphasis would be control of psychiatric medicines with parkinsonism taken as side effect of medicines. I would recommend starting him on benztropine 0.5 twice a day. A trial of carbidopa levodopa 25/100 3 times a day can also be given for a day or 2 to see if that would improve his ambulation neuro note above read and appreciated . Plan case reviewed with dr riley with mother pt seen bradykinetic hunched over requires walker ? from invega sustena may need tochange to alternative start cogentin consider dopamine agonist pt with grandiose delusions I spent __35____ minutes with the patient and/or on the patient floor today, greater than?50% of which was spent counseling/coordinating care. Reason for contiued inpatient stay Substantial Risk for: inability to function, rapid decompensation and med/psych decompensation
[2021-12-26 18:00] VITALS: BP 137/59; PULSE 71; RESP 16; TEMP 37; O2SAT 97
[2021-12-26] MEDS: hydrOXYzine HCL 25 MG TABLET PO (20:30)
[2021-12-27 06:00] VITALS: BP 119/60; PULSE 80; RESP 14; TEMP 36.4; O2SAT 95
[2021-12-27] MEDS: Omeprazole 20 MG CAPSULE.DR PO (06:05)
[2021-12-27] MEDS: Levothyroxine Sodium 200 MCG TABLET PO (06:05)
--- NOTE | 2021-12-27 06:30 | PC.NURSE ---
Patient performed shower ADL with FRASER. Patient ambulated to shower room with walker and contact guard. Patient was able to doff clothing and transfer himself to shower chair. Once on the shower chair patient used shampoo to wash his hair but refused to use soap to wash himself however he did allow FRASER to wash his back. After shower patient required assistance to transfer to chair and dry off. Patient required mod assist to don underwear, pants, and shirt.
[2021-12-27] MEDS: Furosemide 20 MG TABLET PO (11:10)
[2021-12-27] MEDS: Benztropine Mesylate 0.5 MG TABLET PO (11:11)
[2021-12-27] MEDS: Potassium Chloride ER 20 MEQ TAB.ER.PRT PO (11:11)
[2021-12-27] MEDS: Atorvastatin Calcium 40 MG TABLET PO (11:11)
[2021-12-27] MEDS: Losartan Potassium 50 MG TABLET PO (11:11)
[2021-12-27] MEDS: Finasteride 5 MG TABLET PO (11:11)
[2021-12-27] MEDS: Fluticasone Propionate Nasal 16 GM SPRAY 1 SPRAY NOSTRIL-B ×2 (11:12→20:00)
[2021-12-27] MEDS: Divalproex Sodium 500 MG TABLET.DR PO (11:12)
[2021-12-27] MEDS: Tamsulosin HCL 0.4 MG CAPSULE PO (11:12)
--- NOTE | 2021-12-27 11:24 | HO.PSYCHPN ---
Subjective Subjective Date of Service: 12/27/21 Reason For Visit: psychosis Subjective Notes: Conditional Voluntary Healthcare Proxy: No Guardianship: No Interim History: The patient was seen by Neurology noted parkinsonian symptoms. Mirapex started 3 times a day using a walker has had EPS and his last Invega check she was to untreated 25 mg daily he had 2 injections of this last last injections per 22nd the size parkinsonian symptoms patient has difficulty with urinary hesitancy retention. Complex discussion regarding different treatment options Medication Compliance: Yes Side effects from medications: Yes Attending Groups: Intermittent Review of Systems Acute medical concerns: No Mental Status Exam Mental Status Exam Narrative: Appearance: casually groomed, fair hygiene in NAD Behavior:cooperative psychomotor:resting and action bilat tremors, more prominent right side, unsteady gait rigidity,hunched over Speech:clear, normal rate/rhythm/volume, spontaneous Thought process:tangential Thought content:muslim delusions AH of [facility]. Mood: good Affect: constricted, somewhat irritable SI:denies HI:denies VH/AH:[facility] of [facility]/ Nathalie, Delusions:muslim delusions Insight/judgment:impaired x 2 Memory/cog: alert, oriented to place, month, not situation, Diagnostics Vital Signs (24Hr): Vital Signs - 24 hr 12/26/21 18:00 12/27/21 06:00 Temperature 98.6 F 97.6 F Pulse Rate 71 80 Respiratory Rate 16 14 Blood Pressure 137/59 L 119/60 Pulse Oximetry 97 95 BMI result Body Mass Index 29.9 Labs Results: 12/20/21 12:14 12/22/21 10:43 Labs: Laboratory Results - last 48 hr 12/26/21 08:28 Valproic Acid 40.4 L Imaging Radiology Impressions: ITS Impressions Head CT 12/20/21 12:42 IMPRESSION: No acute intracranial findings. Medications Medications Current Medications Acetaminophen (Acetaminophen 325 Mg Tablet) 650 mg PO Q6H PRN PRN Reason: Headache/Pain Mild Scale (1-3) Last Admin: 12/26/21 20:29 Dose: 650 mg Documented by: Al Hydroxide/Mg Hydroxide (Magnesium Hydrox/Alum Hydrox 30 Ml Oral.Susp) 30 ml PO Q6H PRN PRN Reason: Heartburn/Nausea Albuterol Sulfate (Albuterol Sulfate (0.083%) 2.5 Mg/3 Ml Vial.Neb) 2.5 mg INHALE TID PRN PRN Reason: Shortness Of Breath Albuterol Sulfate (Albuterol Sulfate 90 Mcg 8 Gm Inhaler) 2 puff INHALE Q4H PRN PRN Reason: bronchospasm Last Admin: 12/25/21 12:06 Dose: 2 puff Documented by: Atorvastatin Calcium (Atorvastatin Calcium 40 Mg Tablet) 40 mg PO DAILY [facility] Last Admin: 12/27/21 11:11 Dose: 40 mg Documented by: Benztropine Mesylate (Benztropine Mesylate 0.5 Mg Tablet) 0.5 mg PO BID [facility] Last Admin: 12/27/21 11:11 Dose: 0.5 mg Documented by: Dicyclomine HCl (Dicyclomine Hcl 10 Mg Capsule) 20 mg PO TID PRN PRN Reason: for pain Last Admin: 12/25/21 20:24 Dose: 20 mg Documented by: Divalproex Sodium (Divalproex Sodium 500 Mg Tablet.Dr) 500 mg PO BID [facility] Last Admin: 12/27/21 11:12 Dose: 500 mg Documented by: Donepezil HCl (Donepezil Hcl 5 Mg Tablet) 5 mg PO BEDTIME [facility] Famotidine (Famotidine 20 Mg Tablet) 20 mg PO BID PRN PRN Reason: abdominal pain Last Admin: 12/25/21 20:24 Dose: 20 mg Documented by: Finasteride (Finasteride 5 Mg Tablet) 5 mg PO DAILY [facility] Last Admin: 12/27/21 11:11 Dose: 5 mg Documented by: Fluticasone Propionate (Fluticasone Propionate Nasal 16 Gm [place]) 1 spray NOSTRIL-B BID [facility] Last Admin: 12/27/21 11:12 Dose: 1 spray Documented by: Furosemide (Furosemide 20 Mg Tablet) 20 mg PO DAILY [facility]; Protocol Last Admin: 12/27/21 11:10 Dose: 20 mg Documented by: Hydroxyzine HCl (Hydroxyzine Hcl 25 Mg Tablet) 25 mg PO Q6H PRN PRN Reason: Anxiety Last Admin: 12/26/21 20:30 Dose: 25 mg Documented by: Levothyroxine Sodium (Levothyroxine Sodium 200 Mcg Tablet) 200 mcg PO DAILY@0600 [facility] Last Admin: 12/27/21 06:05 Dose: 200 mcg Documented by: Losartan Potassium (Losartan Potassium 50 Mg Tablet) 50 mg PO DAILY [facility]; Protocol Last Admin: 12/27/21 11:11 Dose: 50 mg Documented by: Magnesium Hydroxide (Milk Of Magnesia 30 Ml Oral.Susp) 30 ml PO DAILY PRN PRN Reason: Constipation Last Admin: 12/21/21 08:08 Dose: 30 ml Documented by: Omeprazole (Omeprazole 20 Mg Capsule.) 20 mg PO DAILY@0600 [facility] Last Admin: 12/27/21 06:05 Dose: 20 mg Documented by: Pharmacy Consult (Consult Rx Perform Med Rec) 1 each MISCELLANE ONCE PRN PRN Reason: Consult order Potassium Chloride (Potassium Chloride Er 20 Meq Tab.Er.Prt) 20 meq PO DAILY [facility] Last Admin: 12/27/21 11:11 Dose: 20 meq Documented by: Pramipexole Dihydrochloride (Pramipexole Di-Hcl 0.125 Mg Tablet) 0.125 mg PO TID [facility] Tamsulosin HCl (Tamsulosin Hcl 0.4 Mg Capsule) 0.4 mg PO DAILY [facility] Last Admin: 12/27/21 11:12 Dose: 0.4 mg Documented by: Trazodone HCl (Trazodone Hcl 100 Mg Tablet) 100 mg PO BEDTIME PRN PRN Reason: Insomnia Last Admin: 12/26/21 00:19 Dose: 100 mg Documented by: Allergies Allergies Allergy/AdvReac Type Severity Reaction Status Date / Time lisinopril [LISINOPRIL] Allergy Intermediate RASH Verified 12/20/21 11:56 Assessment & Plan Assessment & Plan (1) Parkinsonism: Status: Acute Code(s): G20 - Parkinson's disease Assessment and Plan: [id number]-[id number] parkinsonism likely related to exposure to antipsychotic medicines worsened with underlying dementia or diffuse cerebral degeneration. Main emphasis would be control of psychiatric medicines with parkinsonism taken as side effect of medicines. I would recommend starting him on benztropine 0.5 twice a day. A trial of carbidopa levodopa 25/100 3 times a day can also be given for a day or 2 to see if that would improve his ambulation neuro note above read and appreciated . Plan case reviewed with dr riley with mother pt seen bradykinetic hunched over requires walker ? from invega sustena may need tochange to alternative start cogentin consider dopamine agonist pt with grandiose delusions initial doses of Invega staining given 222 mg did not drop down to 156 mg may benefit from another dose when next due of perhaps 116 mg oral or lower thought of restarting olanzapine however did not do well on this most recently and not reliable to take on a daily basis would try long-acting injectable at much lower dose. . Extensive discussion of history different and arrangements were help with the patient's psychiatrist Dr. Bolden and also with the patient's mother who does give a clear history treatments I spent minutes with the patient and/or on the patient floor today, greater than?50% of which was spent counseling/coordinating care. Reason for contiued inpatient stay Substantial Risk for: harm to others, inability to function and rapid decompensation
[2021-12-27] MEDS: Acetaminophen 325 MG TABLET 650 MG PO (14:45)
[2021-12-27] MEDS: hydrOXYzine HCL 25 MG TABLET PO (14:45)
[2021-12-27] MEDS: Pramipexole Di-HCL 0.125 MG TABLET PO ×2 (14:45→20:00)
[2021-12-27 18:00] VITALS: BP 119/55; PULSE 61; RESP 18; TEMP 36.9; O2SAT 97
[2021-12-27] MEDS: OLANZapine 2.5 MG TABLET PO (19:59)
[2021-12-27] MEDS: Divalproex Sodium 250 MG TABLET.DR PO (20:00)
[2021-12-27] MEDS: Donepezil HCl 5 MG TABLET PO (20:00)
[2021-12-28] MEDS: Omeprazole 20 MG CAPSULE.DR PO (04:34)
[2021-12-28] MEDS: Levothyroxine Sodium 200 MCG TABLET PO (04:34)
[2021-12-28] MEDS: Acetaminophen 325 MG TABLET 650 MG PO ×2 (04:34→18:06)
[2021-12-28 08:27] VITALS: BP 138/71; PULSE 84; RESP 17; TEMP 36.7; O2SAT 94
[2021-12-28] MEDS: Potassium Chloride ER 20 MEQ TAB.ER.PRT PO (09:04)
[2021-12-28] MEDS: Divalproex Sodium 250 MG TABLET.DR PO ×2 (09:04→20:10)
[2021-12-28] MEDS: Finasteride 5 MG TABLET PO (09:04)
[2021-12-28] MEDS: Furosemide 20 MG TABLET PO (09:04)
[2021-12-28] MEDS: Atorvastatin Calcium 40 MG TABLET PO (09:04)
[2021-12-28] MEDS: Losartan Potassium 50 MG TABLET PO (09:05)
[2021-12-28] MEDS: Pramipexole Di-HCL 0.125 MG TABLET PO ×3 (09:05→20:10)
[2021-12-28] MEDS: Tamsulosin HCL 0.4 MG CAPSULE PO (09:06)
[2021-12-28 18:00] VITALS: BP 125/69; PULSE 67; RESP 20; TEMP 36.2; O2SAT 97
--- NOTE | 2021-12-28 19:21 | HO.PSYCHPN ---
Subjective Subjective Date of Service: 12/28/21 Reason For Visit: psychosis Subjective Notes: Conditional Voluntary Interim History: pt cooperative, denies changes, no complaints, no SI Medication Compliance: Yes Side effects from medications: No Review of Systems tremor - started mirapax Medical Review of Systems: unchanged Review of Systems Review of Systems No recent cold or flu-like illness and no drug abuse. Constitutional: Reports frequent falls and Denies poor appetite Eyes: Reports no additional eye complaints Cardiovascular: Denies chest pain, Denies lightheadedness and Denies dyspnea Respiratory: Denies chest congestion and Denies dyspnea Gastrointestinal: Denies constipation, Reports GI cramping, Denies loose stools and Denies nausea Genitourinary: Reports urinary frequency Musculoskeletal: Reports back pain Reports frequent falls Mental Status Exam Mental Status Exam Narrative: Appearance: casually groomed, fair hygiene in NAD Behavior:cooperative psychomotor:resting and action bilat tremors, more prominent right side, unsteady gait rigidity,hunched over Speech:clear, normal rate/rhythm/volume, spontaneous Thought process:tangential Thought content:alevism delusions AH of God. Mood: good Affect: constricted, somewhat irritable SI:denies HI:denies VH/AH:AH of God/ Nathalie, Delusions:alevism delusions Insight/judgment:impaired x 2 Memory/cog: alert, oriented to place, month, not situation, Diagnostics Vital Signs (24Hr): Vital Signs - 24 hr 12/28/21 08:27 Temperature 98.1 F Pulse Rate 84 Respiratory Rate 17 Blood Pressure 138/71 Pulse Oximetry 94 BMI result Body Mass Index 29.9 Labs Results: 12/20/21 12:14 12/22/21 10:43 Imaging Radiology Impressions: ITS Impressions Head CT 12/20/21 12:42 IMPRESSION: No acute intracranial findings. Medications Medications Current Medications Acetaminophen (Acetaminophen 325 Mg Tablet) 650 mg PO Q6H PRN PRN Reason: Headache/Pain Mild Scale (1-3) Last Admin: 12/28/21 18:06 Dose: 650 mg Documented by: Al Hydroxide/Mg Hydroxide (Magnesium Hydrox/Alum Hydrox 30 Ml Oral.Susp) 30 ml PO Q6H PRN PRN Reason: Heartburn/Nausea Albuterol Sulfate (Albuterol Sulfate 90 Mcg 8 Gm Inhaler) 2 puff INHALE Q4H PRN PRN Reason: bronchospasm Last Admin: 12/25/21 12:06 Dose: 2 puff Documented by: Atorvastatin Calcium (Atorvastatin Calcium 40 Mg Tablet) 40 mg PO DAILY [facility] Last Admin: 12/28/21 09:04 Dose: 40 mg Documented by: Dicyclomine HCl (Dicyclomine Hcl 10 Mg Capsule) 20 mg PO TID PRN PRN Reason: for pain Last Admin: 12/25/21 20:24 Dose: 20 mg Documented by: Divalproex Sodium (Divalproex Sodium 250 Mg Tablet.) 250 mg PO BID [facility] Last Admin: 12/28/21 09:04 Dose: 250 mg Documented by: Donepezil HCl (Donepezil Hcl 5 Mg Tablet) 5 mg PO BEDTIME [facility] Last Admin: 12/27/21 20:00 Dose: 5 mg Documented by: Famotidine (Famotidine 20 Mg Tablet) 20 mg PO BID PRN PRN Reason: abdominal pain Last Admin: 12/25/21 20:24 Dose: 20 mg Documented by: Finasteride (Finasteride 5 Mg Tablet) 5 mg PO DAILY [facility] Last Admin: 12/28/21 09:04 Dose: 5 mg Documented by: Fluticasone Propionate (Fluticasone Propionate Nasal 16 Gm [place]) 1 spray NOSTRIL-B BID [facility] Last Admin: 12/28/21 09:57 Dose: Not Given Documented by: Furosemide (Furosemide 20 Mg Tablet) 20 mg PO DAILY [facility]; Protocol Last Admin: 12/28/21 09:04 Dose: 20 mg Documented by: Ibuprofen (Ibuprofen 600 Mg Tablet) 600 mg PO Q6H PRN PRN Reason: mild-mod pain Levothyroxine Sodium (Levothyroxine Sodium 200 Mcg Tablet) 200 mcg PO DAILY@0600 [facility] Last Admin: 12/28/21 04:34 Dose: 200 mcg Documented by: Losartan Potassium (Losartan Potassium 50 Mg Tablet) 50 mg PO DAILY [facility]; Protocol Last Admin: 12/28/21 09:05 Dose: 50 mg Documented by: Magnesium Hydroxide (Milk Of Magnesia 30 Ml Oral.Susp) 30 ml PO DAILY PRN PRN Reason: Constipation Last Admin: 12/21/21 08:08 Dose: 30 ml Documented by: Olanzapine (Olanzapine 2.5 Mg Tablet) 2.5 mg PO BEDTIME [facility] Last Admin: 12/27/21 19:59 Dose: 2.5 mg Documented by: Omeprazole (Omeprazole 20 Mg Capsule.) 20 mg PO DAILY@0600 [facility] Last Admin: 12/28/21 04:34 Dose: 20 mg Documented by: Pharmacy Consult (Consult Rx Perform Med Rec) 1 each MISCELLANE ONCE PRN PRN Reason: Consult order Potassium Chloride (Potassium Chloride Er 20 Meq Tab.Er.Prt) 20 meq PO DAILY [facility] Last Admin: 12/28/21 09:04 Dose: 20 meq Documented by: Pramipexole Dihydrochloride (Pramipexole Di-Hcl 0.125 Mg Tablet) 0.125 mg PO TID [facility] Last Admin: 12/28/21 14:07 Dose: 0.125 mg Documented by: Tamsulosin HCl (Tamsulosin Hcl 0.4 Mg Capsule) 0.4 mg PO DAILY [facility] Last Admin: 12/28/21 09:06 Dose: 0.4 mg Documented by: Trazodone HCl (Trazodone Hcl 100 Mg Tablet) 100 mg PO BEDTIME PRN PRN Reason: Insomnia Last Admin: 12/26/21 00:19 Dose: 100 mg Documented by: Allergies Allergies Allergy/AdvReac Type Severity Reaction Status Date / Time lisinopril [LISINOPRIL] Allergy Intermediate RASH Verified 12/20/21 11:56 Assessment & Plan Assessment & Plan (1) Parkinsonism: Status: Acute Code(s): G20 - Parkinson's disease Assessment and Plan: [id number] parkinsonism likely related to exposure to antipsychotic medicines worsened with underlying dementia or diffuse cerebral degeneration. Main emphasis would be control of psychiatric medicines with parkinsonism taken as side effect of medicines. I would recommend starting him on benztropine 0.5 twice a day. A trial of carbidopa levodopa 25/100 3 times a day can also be given for a day or 2 to see if that would improve his ambulation neuro note above read and appreciated . Plan case reviewed with dr riley with mother pt seen bradykinetic hunched over requires walker ? from invega sustena may need tochange to alternative start cogentin consider dopamine agonist pt with grandiose delusions initial doses of Invega staining given 222 mg did not drop down to 156 mg may benefit from another dose when next due of perhaps 116 mg oral or lower thought of restarting olanzapine however did not do well on this most recently and not reliable to take on a daily basis would try long-acting injectable at much lower dose. . Extensive discussion of history different and arrangements were help with the patient's psychiatrist Dr. Bolden and also with the patient's mother who does give a clear history treatments 12/28/21 no change to plan; continue current treatment plan I spent minutes with the patient and/or on the patient floor today, greater than?50% of which was spent counseling/coordinating care. Patient educated on: medication risk/benefits and therapeutic strategies Informed Consent: further education needed Reason for contiued inpatient stay Substantial Risk for: harm to self, inability to function and rapid decompensation
[2021-12-28] MEDS: Fluticasone Propionate Nasal 16 GM SPRAY 1 SPRAY NOSTRIL-B (20:10)
[2021-12-28] MEDS: Donepezil HCl 5 MG TABLET PO (20:10)
[2021-12-28] MEDS: OLANZapine 2.5 MG TABLET PO (20:13)
[2021-12-28] MEDS: Ibuprofen 600 MG TABLET PO (22:42)
[2021-12-29] MEDS: Omeprazole 20 MG CAPSULE.DR PO (05:09)
[2021-12-29] MEDS: Levothyroxine Sodium 200 MCG TABLET PO (05:09)
[2021-12-29] MEDS: Fluticasone Propionate Nasal 16 GM SPRAY 1 SPRAY NOSTRIL-B (05:09)
[2021-12-29 07:59] VITALS: BP 162/72; PULSE 55; RESP 20; TEMP 36.1; O2SAT 97
[2021-12-29] MEDS: Furosemide 20 MG TABLET PO (08:31)
[2021-12-29] MEDS: Pramipexole Di-HCL 0.125 MG TABLET PO ×3 (08:31→20:15)
[2021-12-29] MEDS: Tamsulosin HCL 0.4 MG CAPSULE PO (08:31)
[2021-12-29] MEDS: Divalproex Sodium 250 MG TABLET.DR PO ×2 (08:31→20:15)
[2021-12-29] MEDS: Potassium Chloride ER 20 MEQ TAB.ER.PRT PO (08:31)
[2021-12-29] MEDS: Finasteride 5 MG TABLET PO (08:31)
[2021-12-29] MEDS: Atorvastatin Calcium 40 MG TABLET PO (08:31)
[2021-12-29] MEDS: Losartan Potassium 50 MG TABLET PO (08:31)
--- NOTE | 2021-12-29 14:37 | P.PNPSI_ITS ---
Subjective Subjective Date of Service: 12/29/21 Reason For Visit: psychosis Interim History: pt cooperative, superficially bright, denies changes, no complaints, no SI or Hi. Continues with hand tremor Medication Compliance: Yes Side effects from medications: No Attending Groups: No Review of Systems Acute medical concerns: No Medical Review of Systems: unchanged Review of Systems Review of Systems No recent cold or flu-like illness and no drug abuse. Constitutional: Reports frequent falls and Denies poor appetite Eyes: Reports no additional eye complaints Cardiovascular: Denies chest pain, Denies lightheadedness and Denies dyspnea Respiratory: Denies chest congestion and Denies dyspnea Gastrointestinal: Denies constipation, Reports GI cramping, Denies loose stools and Denies nausea Genitourinary: Reports urinary frequency Musculoskeletal: Reports back pain Reports frequent falls Mental Status Exam Mental Status Exam Narrative: Appearance: casually groomed, fair hygiene in NAD Behavior:cooperative psychomotor:resting and action bilat tremors, more prominent right side, unsteady gait rigidity,hunched over Speech:clear, normal rate/rhythm/volume, spontaneous Thought process:tangential Thought content:gnosticist delusions AH of God. Mood: good Affect: constricted, somewhat irritable SI:denies HI:denies VH/AH:[facility] of [facility]/ Nathalie, Delusions:gnosticist delusions Insight/judgment:impaired x 2 Memory/cog: alert, oriented to place, month, not situation, Diagnostics Vital Signs (24Hr): Vital Signs - 24 hr 12/28/21 18:00 12/29/21 07:59 Temperature 97.1 F 97.0 F Pulse Rate 67 55 Respiratory Rate 20 20 Blood Pressure 125/69 162/72 H Pulse Oximetry 97 97 BMI result Body Mass Index 29.9 Labs Results: 12/20/21 12:14 12/22/21 10:43 Imaging Radiology Impressions: ITS Impressions Head CT 12/20/21 12:42 IMPRESSION: No acute intracranial findings. Medications Medications Current Medications Acetaminophen (Acetaminophen 325 Mg Tablet) 650 mg PO Q6H PRN PRN Reason: Headache/Pain Mild Scale (1-3) Last Admin: 12/28/21 18:06 Dose: 650 mg Documented by: Al Hydroxide/Mg Hydroxide (Magnesium Hydrox/Alum Hydrox 30 Ml Oral.Susp) 30 ml PO Q6H PRN PRN Reason: Heartburn/Nausea Albuterol Sulfate (Albuterol Sulfate 90 Mcg 8 Gm Inhaler) 2 puff INHALE Q4H PRN PRN Reason: bronchospasm Last Admin: 12/25/21 12:06 Dose: 2 puff Documented by: Atorvastatin Calcium (Atorvastatin Calcium 40 Mg Tablet) 40 mg PO DAILY [facility] Last Admin: 12/29/21 08:31 Dose: 40 mg Documented by: Dicyclomine HCl (Dicyclomine Hcl 10 Mg Capsule) 20 mg PO TID PRN PRN Reason: for pain Last Admin: 12/25/21 20:24 Dose: 20 mg Documented by: Divalproex Sodium (Divalproex Sodium 250 Mg Tablet.Dr) 250 mg PO BID [facility] Last Admin: 12/29/21 08:31 Dose: 250 mg Documented by: Donepezil HCl (Donepezil Hcl 5 Mg Tablet) 5 mg PO BEDTIME [facility] Last Admin: 12/28/21 20:10 Dose: 5 mg Documented by: Famotidine (Famotidine 20 Mg Tablet) 20 mg PO BID PRN PRN Reason: abdominal pain Last Admin: 12/25/21 20:24 Dose: 20 mg Documented by: Finasteride (Finasteride 5 Mg Tablet) 5 mg PO DAILY [facility] Last Admin: 12/29/21 08:31 Dose: 5 mg Documented by: Fluticasone Propionate (Fluticasone Propionate Nasal 16 Gm [place]) 1 spray NOSTRIL-B BID [facility] Last Admin: 12/29/21 05:09 Dose: 1 spray Documented by: Furosemide (Furosemide 20 Mg Tablet) 20 mg PO DAILY [facility]; Protocol Last Admin: 12/29/21 08:31 Dose: 20 mg Documented by: Ibuprofen (Ibuprofen 600 Mg Tablet) 600 mg PO Q6H PRN PRN Reason: mild-mod pain Last Admin: 12/28/21 22:42 Dose: 600 mg Documented by: Levothyroxine Sodium (Levothyroxine Sodium 200 Mcg Tablet) 200 mcg PO DAILY@0600 [facility] Last Admin: 12/29/21 05:09 Dose: 200 mcg Documented by: Losartan Potassium (Losartan Potassium 50 Mg Tablet) 50 mg PO DAILY [facility]; Pr otocol Last Admin: 12/29/21 08:31 Dose: 50 mg Documented by: Magnesium Hydroxide (Milk Of Magnesia 30 Ml Oral.Susp) 30 ml PO DAILY PRN PRN Reason: Constipation Last Admin: 12/21/21 08:08 Dose: 30 ml Documented by: Olanzapine (Olanzapine 2.5 Mg Tablet) 2.5 mg PO BEDTIME [facility] Last Admin: 12/28/21 20:13 Dose: 2.5 mg Documented by: Omeprazole (Omeprazole 20 Mg Capsule.) 20 mg PO DAILY@0600 [facility] Last Admin: 12/29/21 05:09 Dose: 20 mg Documented by: Pharmacy Consult (Consult Rx Perform Med Rec) 1 each MISCELLANE ONCE PRN PRN Reason: Consult order Potassium Chloride (Potassium Chloride Er 20 Meq Tab.Er.Prt) 20 meq PO DAILY [facility] Last Admin: 12/29/21 08:31 Dose: 20 meq Documented by: Pramipexole Dihydrochloride (Pramipexole Di-Hcl 0.125 Mg Tablet) 0.125 mg PO TID [facility] Last Admin: 12/29/21 08:31 Dose: 0.125 mg Documented by: Tamsulosin HCl (Tamsulosin Hcl 0.4 Mg Capsule) 0.4 mg PO DAILY [facility] Last Admin: 12/29/21 08:31 Dose: 0.4 mg Documented by: Trazodone HCl (Trazodone Hcl 100 Mg Tablet) 100 mg PO BEDTIME PRN PRN Reason: Insomnia Last Admin: 12/26/21 00:19 Dose: 100 mg Documented by: Allergies Allergies Allergy/AdvReac Type Severity Reaction Status Date / Time lisinopril [LISINOPRIL] Allergy Intermediate RASH Verified 12/20/21 11:56 Assessment & Plan Assessment & Plan (1) Parkinsonism: Status: Acute Code(s): G20 - Parkinson's disease Assessment and Plan: [id number] parkinsonism likely related to exposure to antipsychotic medicines worsened with underlying dementia or diffuse cerebral degeneration. Main emphasis would be control of psychiatric medicines with parkinsonism taken as side effect of medicines. I would recommend starting him on benztropine 0.5 twice a day. A trial of carbidopa levodopa 25/100 3 times a day can also be given for a day or 2 to see if that would improve his ambulation neuro note above read and appreciated . Plan case reviewed with dr riley with mother pt seen bradykinetic hunched over r equires walker ? from invega sustena may need tochange to alternative start cogentin consider dopamine agonist pt with grandiose delusions initial doses of Invega staining given 222 mg did not drop down to 156 mg may benefit from another dose when next due of perhaps 116 mg oral or lower thought of restarting olanzapine however did not do well on this most recently and not reliable to take on a daily basis would try long-acting injectable at much lower dose. . Extensive discussion of history different and arrangements were help with the patient's psychiatrist Dr. Bolden and also with the patient's mother who does give a clear history treatments 12/28/21 no change to plan; continue current treatment plan 12/29/21 Continue with current treatment plan I spent __15____ minutes with the patient and/or on the patient floor today, greater than?50% of which was spent counseling/coordinating care. Patient educated on: medication risk/benefits and therapeutic strategies Informed Consent: further education needed Reason for contiued inpatient stay Substantial Risk for: harm to self, inability to function and rapid decompensation
[2021-12-29 18:00] VITALS: BP 157/75; PULSE 74; RESP 18; TEMP 36.7; O2SAT 97
[2021-12-29] MEDS: Acetaminophen 325 MG TABLET 650 MG PO (18:44)
[2021-12-29] MEDS: OLANZapine 2.5 MG TABLET PO (20:15)
[2021-12-29] MEDS: Ibuprofen 600 MG TABLET PO (20:15)
[2021-12-29] MEDS: Donepezil HCl 5 MG TABLET PO (20:15)
[2021-12-30] MEDS: Levothyroxine Sodium 200 MCG TABLET PO (06:16)
[2021-12-30] MEDS: Omeprazole 20 MG CAPSULE.DR PO (06:16)
--- NOTE | 2021-12-30 12:58 | P.PNPSI_ITS ---
Subjective Subjective Date of Service: 12/30/21 Reason For Visit: psychosis Subjective Notes: Conditional Voluntary Interim History: The staff reported that the patient has shakes and tremors. Apparently since Invega Sustenna was kept on 234 mg, he had more extrapyramidal symptoms. He is back on Flomax for urinary retention. On interview, the patient remains loud, disorganized but easily redirectable. He scored 14/30 on the MOCA. He has severe EPS. Mental Status Exam Mental Status Exam Patient Appearance: Well Grooomed Patient Orientation: Person Level of Consciousness: Awake Patient Behavior: Cooperative Mood Description: Labile Affect Description: Constricted Patient Cognition Impaired: Yes Ability to Follow Directions: Good Speech Pattern: Clear Memory Description: Intact Hallucinations: Auditory Delusions: Paranoid Ideation and Grandiose Thought Process: Illogical and Distracted Thought Content: positive for [place], positive for Obsessional Thoughts and positive for Poverty of Content Judgement: Fair Diagnostics Vital Signs (24Hr): Vital Signs - 24 hr 12/29/21 18:00 Temperature 98.1 F Pulse Rate 74 Respiratory Rate 18 Blood Pressure 157/75 H Pulse Oximetry 97 BMI result Body Mass Index 29.9 Labs Results: 12/20/21 12:14 12/22/21 10:43 Imaging Radiology Impressions: ITS Impressions Head CT 12/20/21 12:42 IMPRESSION: No acute intracranial findings. Medications Medications Current Medications Acetaminophen (Acetaminophen 325 Mg Tablet) 650 mg PO Q6H PRN PRN Reason: Headache/Pain Mild Scale (1-3) Last Admin: 12/29/21 18:44 Dose: 650 mg Documented by: Al Hydroxide/Mg Hydroxide (Magnesium Hydrox/Alum Hydrox 30 Ml Oral.Susp) 30 ml PO Q6H PRN PRN Reason: Heartburn/Nausea Albuterol Sulfate (Albuterol Sulfate 90 Mcg 8 Gm Inhaler) 2 puff INHALE Q4H PRN PRN Reason: bronchospasm Last Admin: 12/25/21 12:06 Dose: 2 puff Documented by: Atorvastatin Calcium (Atorvastatin Calcium 40 Mg Tablet) 40 mg PO DAILY [facility] Last Admin: 12/30/21 09:55 Dose: Not Given Documented by: Dicyclomine HCl (Dicyclomine Hcl 10 Mg Capsule) 20 mg PO TID PRN PRN Reason: for pain Last Admin: 12/25/21 20:24 Dose: 20 mg Documented by: Divalproex Sodium (Divalproex Sodium 250 Mg Tablet.) 250 mg PO BID [facility] Last Admin: 12/30/21 09:55 Dose: Not Given Documented by: Donepezil HCl (Donepezil Hcl 5 Mg Tablet) 5 mg PO BEDTIME [facility] Last Admin: 12/29/21 20:15 Dose: 5 mg Documented by: Famotidine (Famotidine 20 Mg Tablet) 20 mg PO BID PRN PRN Reason: abdominal pain Last Admin: 12/25/21 20:24 Dose: 20 mg Documented by: Finasteride (Finasteride 5 Mg Tablet) 5 mg PO DAILY [facility] Last Admin: 12/30/21 09:55 Dose: Not Given Documented by: Fluticasone Propionate (Fluticasone Propionate Nasal 16 Gm [place]) 1 spray NOSTRIL-B BID [facility] Last Admin: 12/30/21 09:55 Dose: Not Given Documented by: Furosemide (Furosemide 20 Mg Tablet) 20 mg PO DAILY [facility]; Protocol Last Admin: 12/30/21 09:55 Dose: Not Given Documented by: Ibuprofen (Ibuprofen 600 Mg Tablet) 600 mg PO Q6H PRN PRN Reason: mild-mod pain Last Admin: 12/29/21 20:15 Dose: 600 mg Documented by: Levothyroxine Sodium (Levothyroxine Sodium 200 Mcg Tablet) 200 mcg PO DAILY@0600 [facility] Last Admin: 12/30/21 06:16 Dose: 200 mcg Documented by: Losartan Potassium (Losartan Potassium 50 Mg Tablet) 50 mg PO DAILY [facility]; Protocol Last Admin: 12/30/21 09:55 Dose: Not Given Documented by: Magnesium Hydroxide (Milk Of Magnesia 30 Ml Oral.Susp) 30 ml PO DAILY PRN PRN Reason: Constipation Last Admin: 12/21/21 08:08 Dose: 30 ml Documented by: Olanzapine (Olanzapine 2.5 Mg Tablet) 2.5 mg PO BEDTIME [facility] Last Admin: 12/29/21 20:15 Dose: 2.5 mg Documented by: Omeprazole (Omeprazole 20 Mg Capsule.) 20 mg PO DAILY@0600 [facility] Last Admin: 12/30/21 06:16 Dose: 20 mg Documented by: Pharmacy Consult (Consult Rx Perform Med Rec) 1 each MISCELLANE ONCE PRN PRN Reason: Consult order Potassium Chloride (Potassium Chloride Er 20 Meq Tab.Er.Prt) 20 meq PO DAILY [facility] Last Admin: 12/30/21 09:55 Dose: Not Given Documented by: Pramipexole Dihydrochloride (Pramipexole Di-Hcl 0.125 Mg Tablet) 0.125 mg PO TID [facility] Last Admin: 12/30/21 09:56 Dose: Not Given Documented by: Tamsulosin HCl (Tamsulosin Hcl 0.4 Mg Capsule) 0.4 mg PO DAILY [facility] Last Admin: 12/30/21 09:56 Dose: Not Given Documented by: Trazodone HCl (Trazodone Hcl 100 Mg Tablet) 100 mg PO BEDTIME PRN PRN Reason: Insomnia Last Admin: 12/26/21 00:19 Dose: 100 mg Documented by: Allergies Allergies Allergy/AdvReac Type Severity Reaction Status Date / Time lisinopril [LISINOPRIL] Allergy Intermediate RASH Verified 12/20/21 11:56 Assessment & Plan Assessment & Plan (1) Parkinsonism: Status: Acute Code(s): G20 - Parkinson's disease Assessment and Plan: [id number] parkinsonism likely related to exposure to antipsychotic medicines worsened with underlying dementia or diffuse cerebral degeneration. Main emphasis would be control of psychiatric medicines with parkinsonism taken as side effect of medicines. I would recommend starting him on benztropine 0.5 twice a day. A trial of carbidopa levodopa 25/100 3 times a day can also be given for a day or 2 to see if that would improve his ambulation neuro note above read and appreciated . Plan case reviewed with dr riley with mother pt seen bradykinetic hunched over requires walker ? from invega sustena may need tochange to alternative start cogentin consider dopamine agonist pt with grandiose delusions initial doses of Invega staining given 222 mg did not drop down to 156 mg may benefit from another dose when next due of perhaps 116 mg oral or lower thought of restarting olanzapine however did not do well on this most recently and not reliable to take on a daily basis would try long-acting injectable at much lower dose. . Extensive discussion of history different and arrangements were help with the patient's psychiatrist Dr. Bolden and also with the patient's mother who does give a clear history treatments Plan 1. Continue with same treatment. 2. Gather collateral information. 3. Add Artane 2 mg po bid. I spent __20____ minutes with the patient and/or on the patient floor today, greater than?50% of which was spent counseling/coordinating care. Reason for contiued inpatient stay Substantial Risk for: inability to function, rapid decompensation and med/psych decompensation
[2021-12-30 18:00] VITALS: BP 151/64; PULSE 64; RESP 19; TEMP 37; O2SAT 96
[2021-12-30] MEDS: Trihexyphenidyl HCL 2 MG TABLET PO (21:09)
[2021-12-30] MEDS: OLANZapine 2.5 MG TABLET PO (21:09)
[2021-12-30] MEDS: Pramipexole Di-HCL 0.125 MG TABLET PO (21:09)
[2021-12-30] MEDS: Fluticasone Propionate Nasal 16 GM SPRAY 1 SPRAY NOSTRIL-B (21:10)
[2021-12-30] MEDS: Donepezil HCl 5 MG TABLET PO (21:10)
[2021-12-30] MEDS: Divalproex Sodium 250 MG TABLET.DR PO (21:10)
[2021-12-30] MEDS: traZODone HCL 100 MG TABLET PO ×2 (21:10→22:51)
[2021-12-30] MEDS: Acetaminophen 325 MG TABLET 650 MG PO (22:51)
[2021-12-31 06:00] VITALS: BP 132/62; PULSE 80; RESP 20; TEMP 36.7; O2SAT 99
[2021-12-31] MEDS: Levothyroxine Sodium 200 MCG TABLET PO (06:18)
[2021-12-31] MEDS: Omeprazole 20 MG CAPSULE.DR PO (06:18)
[2021-12-31] MEDS: Tamsulosin HCL 0.4 MG CAPSULE PO (08:10)
[2021-12-31] MEDS: Potassium Chloride ER 20 MEQ TAB.ER.PRT PO (08:10)
[2021-12-31] MEDS: Furosemide 20 MG TABLET PO (08:10)
[2021-12-31] MEDS: Finasteride 5 MG TABLET PO (08:10)
[2021-12-31] MEDS: Atorvastatin Calcium 40 MG TABLET PO (08:10)
[2021-12-31] MEDS: Losartan Potassium 50 MG TABLET PO (08:10)
[2021-12-31] MEDS: Divalproex Sodium 250 MG TABLET.DR PO ×2 (08:10→20:38)
[2021-12-31] MEDS: Trihexyphenidyl HCL 2 MG TABLET PO ×2 (08:10→20:34)
[2021-12-31] MEDS: Pramipexole Di-HCL 0.125 MG TABLET PO ×3 (08:10→20:32)
[2021-12-31] MEDS: Dicyclomine HCl 10 MG CAPSULE 20 MG PO (12:14)
--- NOTE | 2021-12-31 13:06 | HO.PSYCHPN ---
Subjective Subjective Date of Service: 12/31/21 Reason For Visit: psychosis Interim History: the nursing staff reported that the patient has been compliant with treatment, yesterday we had a [place] test and his core he scored 0 on language and abstraction. On interview, the patient denies new symptoms still pleasantly confused at times Mental Status Exam Mental Status Exam Patient Appearance: Disheveled Patient Orientation: Person Level of Consciousness: Awake Patient Behavior: Guarded and Suspicious Mood Description: Constricted Affect Description: Constricted Patient Cognition Impaired: Yes Ability to Follow Directions: Good Speech Pattern: Clear Hallucinations: Auditory Delusions: Paranoid Ideation and Grandiose Thought Process: Distracted and Confusion Judgement: Fair Diagnostics Vital Signs (24Hr): Vital Signs - 24 hr 12/30/21 18:00 12/31/21 06:00 Temperature 98.6 F 98.0 F Pulse Rate 64 80 Respiratory Rate 19 20 Blood Pressure 151/64 H 132/62 Pulse Oximetry 96 99 BMI result Body Mass Index 29.9 Labs Results: 12/20/21 12:14 12/22/21 10:43 Imaging Radiology Impressions: ITS Impressions Head CT 12/20/21 12:42 IMPRESSION: No acute intracranial findings. Medications Medications Current Medications Acetaminophen (Acetaminophen 325 Mg Tablet) 650 mg PO Q6H PRN PRN Reason: Headache/Pain Mild Scale (1-3) Last Admin: 12/30/21 22:51 Dose: 650 mg Documented by: Al Hydroxide/Mg Hydroxide (Magnesium Hydrox/Alum Hydrox 30 Ml Oral.Susp) 30 ml PO Q6H PRN PRN Reason: Heartburn/Nausea Albuterol Sulfate (Albuterol Sulfate 90 Mcg 8 Gm Inhaler) 2 puff INHALE Q4H PRN PRN Reason: bronchospasm Last Admin: 12/25/21 12:06 Dose: 2 puff Documented by: Atorvastatin Calcium (Atorvastatin Calcium 40 Mg Tablet) 40 mg PO DAILY [facility] Last Admin: 12/31/21 08:10 Dose: 40 mg Documented by: Dicyclomine HCl (Dicyclomine Hcl 10 Mg Capsule) 20 mg PO TID PRN PRN Reason: for pain Last Admin: 12/31/21 12:14 Dose: 20 mg Documented by: Divalproex Sodium (Divalproex Sodium 250 Mg Tablet.) 250 mg PO BID [facility] Last Admin: 12/31/21 08:10 Dose: 250 mg Documented by: Donepezil HCl (Donepezil Hcl 5 Mg Tablet) 5 mg PO BEDTIME [facility] Last Admin: 12/30/21 21:10 Dose: 5 mg Documented by: Famotidine (Famotidine 20 Mg Tablet) 20 mg PO BID PRN PRN Reason: abdominal pain Last Admin: 12/25/21 20:24 Dose: 20 mg Documented by: Finasteride (Finasteride 5 Mg Tablet) 5 mg PO DAILY [facility] Last Admin: 12/31/21 08:10 Dose: 5 mg Documented by: Fluticasone Propionate (Fluticasone Propionate Nasal 16 Gm [place]) 1 spray NOSTRIL-B BID [facility] Last Admin: 12/31/21 08:46 Dose: Not Given Documented by: Furosemide (Furosemide 20 Mg Tablet) 20 mg PO DAILY [facility]; Protocol Last Admin: 12/31/21 08:10 Dose: 20 mg Documented by: Ibuprofen (Ibuprofen 600 Mg Tablet) 600 mg PO Q6H PRN PRN Reason: mild-mod pain Last Admin: 12/29/21 20:15 Dose: 600 mg Documented by: Levothyroxine Sodium (Levothyroxine Sodium 200 Mcg Tablet) 200 mcg PO DAILY@0600 [facility] Last Admin: 12/31/21 06:18 Dose: 200 mcg Documented by: Losartan Potassium (Losartan Potassium 50 Mg Tablet) 50 mg PO DAILY [facility]; Protocol Last Admin: 12/31/21 08:10 Dose: 50 mg Documented by: Magnesium Hydroxide (Milk Of Magnesia 30 Ml Oral.Susp) 30 ml PO DAILY PRN PRN Reason: Constipation Last Admin: 12/21/21 08:08 Dose: 30 ml Documented by: Olanzapine (Olanzapine 2.5 Mg Tablet) 2.5 mg PO BEDTIME [facility] Last Admin: 12/30/21 21:09 Dose: 2.5 mg Documented by: Omeprazole (Omeprazole 20 Mg Capsule.Dr) 20 mg PO DAILY@0600 [facility] Last Admin: 12/31/21 06:18 Dose: 20 mg Documented by: Pharmacy Consult (Consult Rx Perform Med Rec) 1 each MISCELLANE ONCE PRN PRN Reason: Consult order Potassium Chloride (Potassium Chloride Er 20 Meq Tab.Er.Prt) 20 meq PO DAILY [facility] Last Admin: 12/31/21 08:10 Dose: 20 meq Documented by: Pramipexole Dihydrochloride (Pramipexole Di-Hcl 0.125 Mg Tablet) 0.125 mg PO TID [facility] Last Admin: 12/31/21 08:10 Dose: 0.125 mg Documented by: Tamsulosin HCl (Tamsulosin Hcl 0.4 Mg Capsule) 0.4 mg PO DAILY [facility] Last Admin: 12/31/21 08:10 Dose: 0.4 mg Documented by: Trazodone HCl (Trazodone Hcl 100 Mg Tablet) 100 mg PO BEDTIME PRN PRN Reason: Insomnia Last Admin: 12/30/21 22:51 Dose: 100 mg Documented by: Trihexyphenidyl HCl (Trihexyphenidyl Hcl 2 Mg Tablet) 2 mg PO BID [facility] Last Admin: 12/31/21 08:10 Dose: 2 mg Documented by: Allergies Allergies Allergy/AdvReac Type Severity Reaction Status Date / Time lisinopril [LISINOPRIL] Allergy Intermediate RASH Verified 12/20/21 11:56 Assessment & Plan Assessment & Plan (1) Parkinsonism: Status: Acute Code(s): G20 - Parkinson's disease Assessment and Plan: [id number] parkinsonism likely related to exposure to antipsychotic medicines worsened with underlying dementia or diffuse cerebral degeneration. Main emphasis would be control of psychiatric medicines with parkinsonism taken as side effect of medicines. I would recommend starting him on benztropine 0.5 twice a day. A trial of carbidopa levodopa 25/100 3 times a day can also be given for a day or 2 to see if that would improve his ambulation neuro note above read and appreciated . Plan case reviewed with dr riley with mother pt seen bradykinetic hunched over requires walker ? from invega sustena may need tochange to alternative start cogentin consider dopamine agonist pt with grandiose delusions initial doses of Invega staining given 222 mg did not drop down to 156 mg may benefit from another dose when next due of perhaps 116 mg oral or lower thought of restarting olanzapine however did not do well on this most recently and not reliable to take on a daily basis would try long-acting injectable at much lower dose. . Extensive discussion of history different and arrangements were help with the patient's psychiatrist Dr. Bolden and also with the patient's mother who does give a clear history treatments Plan 1. Continue with same treatment. 2. Gather collateral information. 3. Add Artane 2 mg po bid. I spent __20____ minutes with the patient and/or on the patient floor today, greater than?50% of which was spent counseling/coordinating care. Reason for contiued inpatient stay Substantial Risk for: inability to function, rapid decompensation and med/psych decompensation
[2021-12-31 18:00] VITALS: BP 116/55; PULSE 78; RESP 18; TEMP 36.2; O2SAT 95
[2021-12-31] MEDS: Acetaminophen 325 MG TABLET 650 MG PO (20:33)
[2021-12-31] MEDS: OLANZapine 2.5 MG TABLET PO (20:33)
[2021-12-31] MEDS: Fluticasone Propionate Nasal 16 GM SPRAY 1 SPRAY NOSTRIL-B (20:36)
[2021-12-31] MEDS: Donepezil HCl 5 MG TABLET PO (20:37)
[2022-01-01] MEDS: Levothyroxine Sodium 200 MCG TABLET PO (06:28)
[2022-01-01] MEDS: Omeprazole 20 MG CAPSULE.DR PO (06:28)
[2022-01-01] MEDS: Furosemide 20 MG TABLET PO (08:49)
[2022-01-01] MEDS: Divalproex Sodium 250 MG TABLET.DR PO ×2 (08:49→20:30)
[2022-01-01] MEDS: Trihexyphenidyl HCL 2 MG TABLET PO ×2 (08:50→20:31)
[2022-01-01] MEDS: Potassium Chloride ER 20 MEQ TAB.ER.PRT PO (08:50)
[2022-01-01] MEDS: Tamsulosin HCL 0.4 MG CAPSULE PO (08:50)
[2022-01-01] MEDS: Losartan Potassium 50 MG TABLET PO (08:51)
[2022-01-01] MEDS: Finasteride 5 MG TABLET PO (08:51)
[2022-01-01] MEDS: Pramipexole Di-HCL 0.125 MG TABLET PO ×3 (08:51→20:31)
[2022-01-01] MEDS: Atorvastatin Calcium 40 MG TABLET PO (08:51)
[2022-01-01 08:58] VITALS: BP 172/75; PULSE 63; RESP 17; TEMP 36.1; O2SAT 98
[2022-01-01 12:06] VITALS: BP 172/71; PULSE 59
[2022-01-01 12:07] VITALS: BP 164/70; PULSE 68
--- NOTE | 2022-01-01 12:43 | P.PNPSI_ITS ---
Subjective Subjective Date of Service: 01/01/22 Reason For Visit: psychosis Subjective Notes: Conditional Voluntary Interim History: The nursing staff reported the patient has less tremors with any recent change of medications. The patient complained of feeling dizzy since Cogentin was started and we will try to lower it. Today we will have a family meeting at 13:00 with her mother and explained the situation regarding his cognitive impariment and his ability to drive.. On interview he denies new symptoms he is chronically disorganized and psychotic but easily redirectable. No safety concerns. Mental Status Exam Mental Status Exam Patient Appearance: Disheveled Patient Orientation: Person Level of Consciousness: Appropriate Patient Behavior: Guarded, Passive and Suspicious Mood Description: Withdrawn Affect Description: Constricted Patient Cognition Impaired: Yes Ability to Follow Directions: Good Speech Pattern: Clear Hallucinations: Auditory Delusions: Paranoid Ideation and Grandiose Thought Process: Illogical and Evasive Thought Content: positive for Circumstantial Judgement: Poor Diagnostics Vital Signs (24Hr): Vital Signs - 24 hr 12/31/21 18:00 01/01/22 08:58 01/01/22 12:06 Temperature 97.2 F 97.0 F Pulse Rate 78 63 59 Respiratory Rate 18 17 Blood Pressure 116/55 L 172/75 H 172/71 H Pulse Oximetry 95 98 01/01/22 12:07 Temperature Pulse Rate 68 Respiratory Rate Blood Pressure 164/70 H Pulse Oximetry BMI result Body Mass Index 29.9 Labs Results: 12/20/21 12:14 12/22/21 10:43 Imaging Radiology Impressions: [facility] Impressions Head CT 12/20/21 12:42 IMPRESSION: No acute intracranial findings. Medications Medications Current Medications Acetaminophen (Acetaminophen 325 Mg Tablet) 650 mg PO Q6H PRN PRN Reason: Headache/Pain Mild Scale (1-3) Last Admin: 12/31/21 20:33 Dose: 650 mg Documented by: Al Hydroxide/Mg Hydroxide (Magnesium Hydrox/Alum Hydrox 30 Ml Oral.Susp) 30 ml PO Q6H PRN PRN Reason: Heartburn/Nausea Albuterol Sulfate (Albuterol Sulfate 90 Mcg 8 Gm Inhaler) 2 puff INHALE Q4H PRN PRN Reason: bronchospasm Last Admin: 12/25/21 12:06 Dose: 2 puff Documented by: Atorvastatin Calcium (Atorvastatin Calcium 40 Mg Tablet) 40 mg PO DAILY [facility] Last Admin: 01/01/22 08:51 Dose: 40 mg Documented by: Dicyclomine HCl (Dicyclomine Hcl 10 Mg Capsule) 20 mg PO TID PRN PRN Reason: for pain Last Admin: 12/31/21 12:14 Dose: 20 mg Documented by: Divalproex Sodium (Divalproex Sodium 250 Mg Tablet.) 250 mg PO BID [facility] Last Admin: 01/01/22 08:49 Dose: 250 mg Documented by: Donepezil HCl (Donepezil Hcl 5 Mg Tablet) 5 mg PO BEDTIME [facility] Last Admin: 12/31/21 20:37 Dose: 5 mg Documented by: Famotidine (Famotidine 20 Mg Tablet) 20 mg PO BID PRN PRN Reason: abdominal pain Last Admin: 12/25/21 20:24 Dose: 20 mg Documented by: Finasteride (Finasteride 5 Mg Tablet) 5 mg PO DAILY [facility] Last Admin: 01/01/22 08:51 Dose: 5 mg Documented by: Fluticasone Propionate (Fluticasone Propionate Nasal 16 Gm [place]) 1 spray NOSTRIL-B BID [facility] Last Admin: 01/01/22 08:52 Dose: Not Given Documented by: Furosemide (Furosemide 20 Mg Tablet) 20 mg PO DAILY [facility]; Protocol Last Admin: 01/01/22 08:49 Dose: 20 mg Documented by: Ibuprofen (Ibuprofen 600 Mg Tablet) 600 mg PO Q6H PRN PRN Reason: mild-mod pain Last Admin: 12/29/21 20:15 Dose: 600 mg Documented by: Levothyroxine Sodium (Levothyroxine Sodium 200 Mcg Tablet) 200 mcg PO DAILY@0600 [facility] Last Admin: 01/01/22 06:28 Dose: 200 mcg Documented by: Losartan Potassium (Losartan Potassium 50 Mg Tablet) 50 mg PO DAILY [facility]; Protocol Last Admin: 01/01/22 08:51 Dose: 50 mg Documented by: Magnesium Hydroxide (Milk Of Magnesia 30 Ml Oral.Susp) 30 ml PO DAILY PRN PRN Reason: Constipation Last Admin: 12/21/21 08:08 Dose: 30 ml Documented by: Olanzapine (Olanzapine 2.5 Mg Tablet) 2.5 mg PO BEDTIME [facility] Last Admin: 12/31/21 20:33 Dose: 2.5 mg Documented by: Omeprazole (Omeprazole 20 Mg Capsule.) 20 mg PO DAILY@0600 [facility] Last Admin: 01/01/22 06:28 Dose: 20 mg Documented by: Pharmacy Consult (Consult Rx Perform Med Rec) 1 each MISCELLANE ONCE PRN PRN Reason: Consult order Potassium Chloride (Potassium Chloride Er 20 Meq Tab.Er.Prt) 20 meq PO DAILY [facility] Last Admin: 01/01/22 08:50 Dose: 20 meq Documented by: Pramipexole Dihydrochloride (Pramipexole Di-Hcl 0.125 Mg Tablet) 0.125 mg PO TID [facility] Last Admin: 01/01/22 08:51 Dose: 0.125 mg Documented by: Tamsulosin HCl (Tamsulosin Hcl 0.4 Mg Capsule) 0.4 mg PO DAILY [facility] Last Admin: 01/01/22 08:50 Dose: 0.4 mg Documented by: Trazodone HCl (Trazodone Hcl 100 Mg Tablet) 100 mg PO BEDTIME PRN PRN Reason: Insomnia Last Admin: 12/30/21 22:51 Dose: 100 mg Documented by: Trihexyphenidyl HCl (Trihexyphenidyl Hcl 2 Mg Tablet) 2 mg PO BID [facility] Last Admin: 01/01/22 08:50 Dose: 2 mg Documented by: Allergies Allergies Allergy/AdvReac Type Severity Reaction Status Date / Time lisinopril [LISINOPRIL] Allergy Intermediate RASH Verified 12/20/21 11:56 Assessment & Plan Assessment & Plan (1) Parkinsonism: Status: Acute Code(s): G20 - Parkinson's disease Assessment and Plan: [id number] parkinsonism likely related to exposure to antipsychotic medicines worsened with underlying dementia or diffuse cerebral degeneration. Main emphasis would be control of psychiatric medicines with parkinsonism taken as side effect of medicines. I would recommend starting him on benztropine 0.5 twice a day. A trial of carbidopa levodopa 25/100 3 times a day can also be given for a day or 2 to see if that would improve his ambulation neuro note above read and appreciated . Plan case reviewed with dr riley with mother pt seen bradykinetic hunched over requires walker ? from invega sustena may need tochange to alternative start cogentin consider dopamine agonist pt with grandiose delusions initial doses of Invega staining given 222 mg did not drop down to 156 mg may benefit from another dose when next due of perhaps 116 mg oral or lower thought of restarting olanzapine however did not do well on this most recently and not reliable to take on a daily basis would try long-acting injectable at much lower dose. . Extensive discussion of history different and arrangements were help with the patient's psychiatrist Dr. Bolden and also with the patient's mother who does give a clear history treatments Plan 1. Continue with same treatment. 2. Gather collateral information. 3. Add Artane 2 mg po bid. I spent minutes with the patient and/or on the patient floor today, greater than?50% of which was spent counseling/coordinating care. Reason for contiued inpatient stay Substantial Risk for: inability to function, rapid decompensation and med/psych decompensation
[2022-01-01 18:00] VITALS: BP 143/65; PULSE 55; RESP 18; TEMP 36.3; O2SAT 98
[2022-01-01] MEDS: Donepezil HCl 5 MG TABLET PO (20:30)
[2022-01-01] MEDS: OLANZapine 2.5 MG TABLET PO (20:30)
[2022-01-01] MEDS: traZODone HCL 100 MG TABLET PO (20:31)
[2022-01-01] MEDS: Ibuprofen 600 MG TABLET PO (20:31)
[2022-01-01] MEDS: Fluticasone Propionate Nasal 16 GM SPRAY 1 SPRAY NOSTRIL-B (20:32)
[2022-01-01] MEDS: Albuterol Sulfate 90 MCG 8 GM INHALER 2 PUFF INHALE (22:21)
[2022-01-02] MEDS: Omeprazole 20 MG CAPSULE.DR PO (05:13)
[2022-01-02] MEDS: Levothyroxine Sodium 200 MCG TABLET PO (05:13)
[2022-01-02 06:00] VITALS: BP 146/81; PULSE 64; RESP 14; TEMP 36.6; O2SAT 95
[2022-01-02] MEDS: Atorvastatin Calcium 40 MG TABLET PO (10:15)
[2022-01-02] MEDS: Trihexyphenidyl HCL 2 MG TABLET PO (10:15)
[2022-01-02] MEDS: Potassium Chloride ER 20 MEQ TAB.ER.PRT PO (10:15)
[2022-01-02] MEDS: Losartan Potassium 50 MG TABLET PO (10:15)
[2022-01-02] MEDS: Divalproex Sodium 250 MG TABLET.DR PO (10:16)
[2022-01-02] MEDS: Tamsulosin HCL 0.4 MG CAPSULE PO (10:16)
[2022-01-02] MEDS: Furosemide 20 MG TABLET PO (10:16)
[2022-01-02] MEDS: Pramipexole Di-HCL 0.125 MG TABLET PO ×2 (10:16→15:45)
[2022-01-02] MEDS: Finasteride 5 MG TABLET PO (10:16)
[2022-01-02] MEDS: Ibuprofen 600 MG TABLET PO (11:20)
--- NOTE | 2022-01-02 11:49 | P.PNPSI_ITS ---
Subjective Subjective Date of Service: 01/02/22 Reason For Visit: psychosis Subjective Notes: Conditional Voluntary Interim History: The nursing staff reported the patient has been compliant with medication and his involuntary movement is much less. He has been isolative in his room but easily redirectable. On interview the patient denies new symptoms and he wants to be discharged as soon as possible. Yesterday on the family meeting we agree for an early di scharge on Thursday with more services. Mental Status Exam Mental Status Exam Patient Appearance: Appropriate Patient Orientation: Person Level of Consciousness: Awake Patient Behavior: Passive Mood Description: Withdrawn Affect Description: Constricted Patient Cognition Impaired: Yes Ability to Follow Directions: Good Speech Pattern: Clear Hallucinations: Auditory Delusions: Paranoid Ideation and Grandiose Thought Process: Linear Thought Content: positive for [place] and positive for Poverty of Content Judgement: Fair Diagnostics Vital Signs (24Hr): Vital Signs - 24 hr 01/01/22 12:06 01/01/22 12:07 01/01/22 18:00 Temperature 97.4 F Pulse Rate 59 68 55 Respiratory Rate 18 Blood Pressure 172/71 H 164/70 H 143/65 H Pulse Oximetry 98 01/02/22 06:00 Temperature 97.8 F Pulse Rate 64 Respiratory Rate 14 Blood Pressure 146/81 H Pulse Oximetry 95 BMI result Body Mass Index 29.9 Labs Results: 12/20/21 12:14 12/22/21 10:43 Imaging Radiology Impressions: [facility] Impressions Head CT 12/20/21 12:42 IMPRESSION: No acute intracranial findings. Medications Medications Current Medications Acetaminophen (Acetaminophen 325 Mg Tablet) 650 mg PO Q6H PRN PRN Reason: Headache/Pain Mild Scale (1-3) Last Admin: 12/31/21 20:33 Dose: 650 mg Documented by: Al Hydroxide/Mg Hydroxide (Magnesium Hydrox/Alum Hydrox 30 Ml Oral.Susp) 30 ml PO Q6H PRN PRN Reason: Heartburn/Nausea Albuterol Sulfate (Albuterol Sulfate 90 Mcg 8 Gm Inhaler) 2 puff INHALE Q4H PRN PRN Reason: bronchospasm Last Admin: 01/01/22 22:21 Dose: 2 puff Documented by: Atorvastatin Calcium (Atorvastatin Calcium 40 Mg Tablet) 40 mg PO DAILY [facility] Last Admin: 01/02/22 10:15 Dose: 40 mg Documented by: Dicyclomine HCl (Dicyclomine Hcl 10 Mg Capsule) 20 mg PO TID PRN PRN Reason: for pain Last Admin: 12/31/21 12:14 Dose: 20 mg Documented by: Divalproex Sodium (Divalproex Sodium 250 Mg Tablet.) 250 mg PO BID [facility] Last Admin: 01/02/22 10:16 Dose: 250 mg Documented by: Donepezil HCl (Donepezil Hcl 5 Mg Tablet) 5 mg PO BEDTIME [facility] Last Admin: 01/01/22 20:30 Dose: 5 mg Documented by: Famotidine (Famotidine 20 Mg Tablet) 20 mg PO BID PRN PRN Reason: abdominal pain Last Admin: 12/25/21 20:24 Dose: 20 mg Documented by: Finasteride (Finasteride 5 Mg Tablet) 5 mg PO DAILY [facility] Last Admin: 01/02/22 10:16 Dose: 5 mg Documented by: Fluticasone Propionate (Fluticasone Propionate Nasal 16 Gm [place]) 1 spray NOSTRIL-B BID [facility] Last Admin: 01/02/22 11:11 Dose: Not Given Documented by: Furosemide (Furosemide 20 Mg Tablet) 20 mg PO DAILY [facility]; Protocol Last Admin: 01/02/22 10:16 Dose: 20 mg Documented by: Ibuprofen (Ibuprofen 600 Mg Tablet) 600 mg PO Q6H PRN PRN Reason: mild-mod pain Last Admin: 01/02/22 11:20 Dose: 600 mg Documented by: Levothyroxine Sodium (Levothyroxine Sodium 200 Mcg Tablet) 200 mcg PO DAILY@0600 [facility] Last Admin: 01/02/22 05:13 Dose: 200 mcg Documented by: Losartan Potassium (Losartan Potassium 50 Mg Tablet) 50 mg PO DAILY [facility]; Protocol Last Admin: 01/02/22 10:15 Dose: 50 mg Documented by: Magnesium Hydroxide (Milk Of Magnesia 30 Ml Oral.Susp) 30 ml PO DAILY PRN PRN Reason: Constipation Last Admin: 12/21/21 08:08 Dose: 30 ml Documented by: Olanzapine (Olanzapine 2.5 Mg Tablet) 2.5 mg PO BEDTIME [facility] Last Admin: 01/01/22 20:30 Dose: 2.5 mg Documented by: Omeprazole (Omeprazole 20 Mg Capsule.) 20 mg PO DAILY@0600 [facility] Last Admin: 01/02/22 05:13 Dose: 20 mg Documented by: Pharmacy Consult (Consult Rx Perform Med Rec) 1 each MISCELLANE ONCE PRN PRN Reason: Consult order Potassium Chloride (Potassium Chloride Er 20 Meq Tab.Er.Prt) 20 meq PO DAILY [facility] Last Admin: 01/02/22 10:15 Dose: 20 meq Documented by: Pramipexole Dihydrochloride (Pramipexole Di-Hcl 0.125 Mg Tablet) 0.125 mg PO TID [facility] Last Admin: 01/02/22 10:16 Dose: 0.125 mg Documented by: Tamsulosin HCl (Tamsulosin Hcl 0.4 Mg Capsule) 0.4 mg PO DAILY [facility] Last Admin: 01/02/22 10:16 Dose: 0.4 mg Documented by: Trazodone HCl (Trazodone Hcl 100 Mg Tablet) 100 mg PO BEDTIME PRN PRN Reason: Insomnia Last Admin: 01/01/22 20:31 Dose: 100 mg Documented by: Trihexyphenidyl HCl (Trihexyphenidyl Hcl 2 Mg Tablet) 2 mg PO BID [facility] Last Admin: 01/02/22 10:15 Dose: 2 mg Documented by: Allergies Allergies Allergy/AdvReac Type Severity Reaction Status Date / Time lisinopril [LISINOPRIL] Allergy Intermediate RASH Verified 12/20/21 11:56 Assessment & Plan Assessment & Plan (1) Parkinsonism: Status: Acute Code(s): G20 - Parkinson's disease Assessment and Plan: [id number] parkinsonism likely related to exposure to antipsychotic medicines worsened with underlying dementia or diffuse cerebral degeneration. Main emphasis would be control of psychiatric medicines with parkinsonism taken as side effect of medicines. I would recommend starting him on benztropine 0.5 twice a day. A trial of carbidopa levodopa 25/100 3 times a day can also be given for a day or 2 to see if that would improve his ambulation neuro note above read and appreciated . Plan case reviewed with dr riley with mother pt seen bradykinetic hunched over requires walker ? from invega sustena may need tochange to alternative start cogentin consider dopamine agonist pt with grandiose delusions initial doses of Invega staining given 222 mg did not drop down to 156 mg may benefit from another dose when next due of perhaps 116 mg oral or lower thought of restarting olanzapine however did not do well on this most recently and not reliable to take on a daily basis would try long-acting injectable at much lower dose. . Extensive discussion of history different and arrangements were help with the patient's psychiatrist Dr. Bolden and also with the patient's mother who does give a clear history treatments Plan 1. Continue with same treatment. 2. Gather collateral information. 3. Add Artane 2 mg po bid. 4. Restart Invega Sustenna on discharge at a lower dose I spent ___20___ minutes with the patient and/or on the patient floor today, greater than?50% of which was spent counseling/coordinating care. Reason for contiued inpatient stay Substantial Risk for: inability to function, rapid decompensation and med/psych decompensation
[2022-01-02 18:00] VITALS: BP 148/77; PULSE 66; RESP 16; TEMP 36.3; O2SAT 98
[2022-01-03] MEDS: Divalproex Sodium 250 MG TABLET.DR PO ×3 (00:14→22:14)
[2022-01-03] MEDS: Donepezil HCl 5 MG TABLET PO ×2 (00:14→22:16)
[2022-01-03] MEDS: Trihexyphenidyl HCL 2 MG TABLET PO ×3 (00:15→22:16)
[2022-01-03] MEDS: OLANZapine 2.5 MG TABLET PO ×2 (00:15→22:13)
[2022-01-03] MEDS: Pramipexole Di-HCL 0.125 MG TABLET PO ×4 (00:15→22:14)
[2022-01-03] MEDS: Omeprazole 20 MG CAPSULE.DR PO (06:26)
[2022-01-03] MEDS: Levothyroxine Sodium 200 MCG TABLET PO (06:27)
[2022-01-03 08:00] VITALS: BP 120/58; PULSE 65; RESP 18; TEMP 36.3; O2SAT 96
[2022-01-03] MEDS: Losartan Potassium 50 MG TABLET PO (08:53)
[2022-01-03] MEDS: Potassium Chloride ER 20 MEQ TAB.ER.PRT PO (08:53)
[2022-01-03] MEDS: Finasteride 5 MG TABLET PO (08:53)
[2022-01-03] MEDS: Tamsulosin HCL 0.4 MG CAPSULE PO (08:53)
[2022-01-03] MEDS: Fluticasone Propionate Nasal 16 GM SPRAY 1 SPRAY NOSTRIL-B (08:53)
[2022-01-03] MEDS: Furosemide 20 MG TABLET PO (08:53)
[2022-01-03] MEDS: Atorvastatin Calcium 40 MG TABLET PO (08:53)
[2022-01-03] MEDS: Albuterol Sulfate 90 MCG 8 GM INHALER 2 PUFF INHALE (08:54)
--- NOTE | 2022-01-03 12:31 | HO.PSYCHPN ---
Subjective Subjective Date of Service: 01/03/22 Reason For Visit: psychosis Subjective Notes: Conditional Voluntary Interim History: the nursing staff reported the patient has not attend to groups, he has oscillated but his mood is very stable. He is able in 3 movements have improved. On interview the patient denies new symptoms he is aware that he is going to be discharged on Thursday. He requested if he could be discharged today but I explained that we can't at this moment. The social insurance administrator reported that he has more hours for ancillary services Mental Status Exam Mental Status Exam Patient Appearance: Well Grooomed Patient Orientation: Person Level of Consciousness: Awake Patient Behavior: Cooperative Mood Description: Blunted Affect Description: Constricted Patient Cognition Impaired: Yes Ability to Follow Directions: Good Speech Pattern: Clear Hallucinations: None Delusions: Not Present Thought Process: Distracted Thought Content: positive for [place] and positive for Poverty of Content Judgement: Fair Diagnostics Vital Signs (24Hr): Vital Signs - 24 hr 01/02/22 18:00 01/03/22 08:00 Temperature 97.3 F 97.4 F Pulse Rate 66 65 Respiratory Rate 16 18 Blood Pressure 148/77 H 120/58 L Pulse Oximetry 98 96 BMI result Body Mass Index 29.9 Labs Results: 12/20/21 12:14 12/22/21 10:43 Imaging Radiology Impressions: ITS Impressions Head CT 12/20/21 12:42 IMPRESSION: No acute intracranial findings. Medications Medications Current Medications Acetaminophen (Acetaminophen 325 Mg Tablet) 650 mg PO Q6H PRN PRN Reason: Headache/Pain Mild Scale (1-3) Last Admin: 12/31/21 20:33 Dose: 650 mg Documented by: Al Hydroxide/Mg Hydroxide (Magnesium Hydrox/Alum Hydrox 30 Ml Oral.Susp) 30 ml PO Q6H PRN PRN Reason: Heartburn/Nausea Albuterol Sulfate (Albuterol Sulfate 90 Mcg 8 Gm Inhaler) 2 puff INHALE Q4H PRN PRN Reason: bronchospasm Last Admin: 01/03/22 08:54 Dose: 2 puff Documented by: Atorvastatin Calcium (Atorvastatin Calcium 40 Mg Tablet) 40 mg PO DAILY [facility] Last Admin: 01/03/22 08:53 Dose: 40 mg Documented by: Dicyclomine HCl (Dicyclomine Hcl 10 Mg Capsule) 20 mg PO TID PRN PRN Reason: for pain Last Admin: 12/31/21 12:14 Dose: 20 mg Documented by: Divalproex Sodium (Divalproex Sodium 250 Mg Tablet.) 250 mg PO BID [facility] Last Admin: 01/03/22 08:53 Dose: 250 mg Documented by: Donepezil HCl (Donepezil Hcl 5 Mg Tablet) 5 mg PO BEDTIME [facility] Last Admin: 01/03/22 00:14 Dose: 5 mg Documented by: Famotidine (Famotidine 20 Mg Tablet) 20 mg PO BID PRN PRN Reason: abdominal pain Last Admin: 12/25/21 20:24 Dose: 20 mg Documented by: Finasteride (Finasteride 5 Mg Tablet) 5 mg PO DAILY [facility] Last Admin: 01/03/22 08:53 Dose: 5 mg Documented by: Fluticasone Propionate (Fluticasone Propionate Nasal 16 Gm [place]) 1 spray NOSTRIL-B BID [facility] Last Admin: 01/03/22 08:53 Dose: 1 spray Documented by: Furosemide (Furosemide 20 Mg Tablet) 20 mg PO DAILY [facility]; Protocol Last Admin: 01/03/22 08:53 Dose: 20 mg Documented by: Ibuprofen (Ibuprofen 600 Mg Tablet) 600 mg PO Q6H PRN PRN Reason: mild-mod pain Last Admin: 01/02/22 11:20 Dose: 600 mg Documented by: Levothyroxine Sodium (Levothyroxine Sodium 200 Mcg Tablet) 200 mcg PO DAILY@0600 [facility] Last Admin: 01/03/22 06:27 Dose: 200 mcg Documented by: Losartan Potassium (Losartan Potassium 50 Mg Tablet) 50 mg PO DAILY [facility]; Protocol Last Admin: 01/03/22 08:53 Dose: 50 mg Documented by: Magnesium Hydroxide (Milk Of Magnesia 30 Ml Oral.Susp) 30 ml PO DAILY PRN PRN Reason: Constipation Last Admin: 12/21/21 08:08 Dose: 30 ml Documented by: Olanzapine (Olanzapine 2.5 Mg Tablet) 2.5 mg PO BEDTIME [facility] Last Admin: 01/03/22 00:15 Dose: 2.5 mg Documented by: Omeprazole (Omeprazole 20 Mg Capsule.) 20 mg PO DAILY@0600 [facility] Last Admin: 01/03/22 06:26 Dose: 20 mg Documented by: Paliperidone Palmitate (Paliperidone Palmitate 156 Mg/Ml Syringe) 156 mg IM ONCE ONE Stop: 01/06/22 07:01 Pharmacy Consult (Consult Rx Perform Med Rec) 1 each MISCELLANE ONCE PRN PRN Reason: Consult order Potassium Chloride (Potassium Chloride Er 20 Meq Tab.Er.Prt) 20 meq PO DAILY [facility] Last Admin: 01/03/22 08:53 Dose: 20 meq Documented by: Pramipexole Dihydrochloride (Pramipexole Di-Hcl 0.125 Mg Tablet) 0.125 mg PO TID [facility] Last Admin: 01/03/22 08:53 Dose: 0.125 mg Documented by: Tamsulosin HCl (Tamsulosin Hcl 0.4 Mg Capsule) 0.4 mg PO DAILY [facility] Last Admin: 01/03/22 08:53 Dose: 0.4 mg Documented by: Trazodone HCl (Trazodone Hcl 100 Mg Tablet) 100 mg PO BEDTIME PRN PRN Reason: Insomnia Last Admin: 01/01/22 20:31 Dose: 100 mg Documented by: Trihexyphenidyl HCl (Trihexyphenidyl Hcl 2 Mg Tablet) 2 mg PO BID [facility] Last Admin: 01/03/22 08:53 Dose: 2 mg Documented by: Allergies Allergies Allergy/AdvReac Type Severity Reaction Status Date / Time lisinopril [LISINOPRIL] Allergy Intermediate RASH Verified 12/20/21 11:56 Assessment & Plan Assessment & Plan (1) Parkinsonism: Status: Acute Code(s): G20 - Parkinson's disease Assessment and Plan: [id number] parkinsonism likely related to exposure to antipsychotic medicines worsened with underlying dementia or diffuse cerebral degeneration. Main emphasis would be control of psychiatric medicines with parkinsonism taken as side effect of medicines. I would recommend starting him on benztropine 0.5 twice a day. A trial of carbidopa levodopa 25/100 3 times a day can also be given for a day or 2 to see if that would improve his ambulation neuro note above read and appreciated . Plan case reviewed with dr riley with mother pt seen bradykinetic hunched over requires walker ? from invega sustena may need tochange to alternative start cogentin consider dopamine agonist pt with grandiose delusions initial doses of Invega staining given 222 mg did not drop down to 156 mg may benefit from another dose when next due of perhaps 116 mg oral or lower thought of restarting olanzapine however did not do well on this most recently and not reliable to take on a daily basis would try long-acting injectable at much lower dose. . Extensive discussion of history different and arrangements were help with the patient's psychiatrist Dr. Bolden and also with the patient's mother who does give a clear history treatments Plan 1. Continue with same treatment. 2. Gather collateral information. 3. Add Artane 2 mg po bid. 4. Restart Invega Sustenna on discharge at a lower dose I spent __20____ minutes with the patient and/or on the patient floor today, greater than?50% of which was spent counseling/coordinating care. Reason for contiued inpatient stay Substantial Risk for: inability to function, rapid decompensation and med/psych decompensation
[2022-01-03] MEDS: Acetaminophen 325 MG TABLET 650 MG PO ×2 (15:07→22:14)
[2022-01-03 18:00] VITALS: BP 146/65; PULSE 52; RESP 16; TEMP 36.3; O2SAT 95
[2022-01-03] MEDS: traZODone HCL 100 MG TABLET PO (22:16)
[2022-01-04] MEDS: Omeprazole 20 MG CAPSULE.DR PO (05:52)
[2022-01-04] MEDS: Levothyroxine Sodium 200 MCG TABLET PO (05:52)
[2022-01-04 08:00] VITALS: BP 124/59; PULSE 60; TEMP 35.9; O2SAT 97
[2022-01-04] MEDS: Albuterol Sulfate 90 MCG 8 GM INHALER 2 PUFF INHALE (08:27)
[2022-01-04] MEDS: Fluticasone Propionate Nasal 16 GM SPRAY 1 SPRAY NOSTRIL-B (08:27)
[2022-01-04] MEDS: Finasteride 5 MG TABLET PO (08:28)
[2022-01-04] MEDS: Divalproex Sodium 250 MG TABLET.DR PO ×2 (08:28→19:50)
[2022-01-04] MEDS: Tamsulosin HCL 0.4 MG CAPSULE PO (08:28)
[2022-01-04] MEDS: Potassium Chloride ER 20 MEQ TAB.ER.PRT PO (08:28)
[2022-01-04] MEDS: Losartan Potassium 50 MG TABLET PO (08:28)
[2022-01-04] MEDS: Furosemide 20 MG TABLET PO (08:28)
[2022-01-04] MEDS: Trihexyphenidyl HCL 2 MG TABLET PO ×2 (08:28→19:50)
[2022-01-04] MEDS: Atorvastatin Calcium 40 MG TABLET PO (08:28)
[2022-01-04] MEDS: Pramipexole Di-HCL 0.125 MG TABLET PO ×3 (08:28→19:50)
--- NOTE | 2022-01-04 09:51 | HO.PSYCHPN ---
Subjective Subjective Date of Service: 01/04/22 Reason For Visit: psychosis Subjective Notes: Conditional Voluntary Interim History: The nursing staff reported that the patient slept poorly yesterday since his room and was making too much noise. The staff has noticed that he has EPS has improved he has better mobility and he has not been loud or illogical. He remains with a crit delusions about her alleged but he is easily redirectable. He is happy to be discharged on Thursday. Mental Status Exam Mental Status Exam Patient Appearance: Appropriate Patient Orientation: Person, Place and Situation Level of Consciousness: Awake Patient Behavior: Guarded and Passive Mood Description: Suspicious and Withdrawn Affect Description: Constricted Patient Cognition Impaired: Yes Ability to Follow Directions: Fair Speech Pattern: Appropriate Hallucinations: Auditory Delusions: Paranoid Ideation and Grandiose Thought Process: Distracted Thought Content: positive for [place] and positive for [place] Judgement: Fair Diagnostics Vital Signs (24Hr): Vital Signs - 24 hr 01/03/22 18:00 Temperature 97.4 F Pulse Rate 52 Respiratory Rate 16 Blood Pressure 146/65 H Pulse Oximetry 95 BMI result Body Mass Index 29.9 Labs Results: 12/20/21 12:14 12/22/21 10:43 Imaging Radiology Impressions: [facility] Impressions Head CT 12/20/21 12:42 IMPRESSION: No acute intracranial findings. Medications Medications Current Medications Acetaminophen (Acetaminophen 325 Mg Tablet) 650 mg PO Q6H PRN PRN Reason: Headache/Pain Mild Scale (1-3) Last Admin: 01/03/22 22:14 Dose: 650 mg Documented by: Al Hydroxide/Mg Hydroxide (Magnesium Hydrox/Alum Hydrox 30 Ml Oral.Susp) 30 ml PO Q6H PRN PRN Reason: Heartburn/Nausea Albuterol Sulfate (Albuterol Sulfate 90 Mcg 8 Gm Inhaler) 2 puff INHALE Q4H PRN PRN Reason: bronchospasm Last Admin: 01/04/22 08:27 Dose: 2 puff Documented by: Atorvastatin Calcium (Atorvastatin Calcium 40 Mg Tablet) 40 mg PO DAILY [facility] Last Admin: 01/04/22 08:28 Dose: 40 mg Documented by: Dicyclomine HCl (Dicyclomine Hcl 10 Mg Capsule) 20 mg PO TID PRN PRN Reason: for pain Last Admin: 12/31/21 12:14 Dose: 20 mg Documented by: Divalproex Sodium (Divalproex Sodium 250 Mg Tablet.) 250 mg PO BID [facility] Last Admin: 01/04/22 08:28 Dose: 250 mg Documented by: Donepezil HCl (Donepezil Hcl 5 Mg Tablet) 5 mg PO BEDTIME [facility] Last Admin: 01/03/22 22:16 Dose: 5 mg Documented by: Famotidine (Famotidine 20 Mg Tablet) 20 mg PO BID PRN PRN Reason: abdominal pain Last Admin: 12/25/21 20:24 Dose: 20 mg Documented by: Finasteride (Finasteride 5 Mg Tablet) 5 mg PO DAILY [facility] Last Admin: 01/04/22 08:28 Dose: 5 mg Documented by: Fluticasone Propionate (Fluticasone Propionate Nasal 16 Gm [place]) 1 spray NOSTRIL-B BID [facility] Last Admin: 01/04/22 08:27 Dose: 1 spray Documented by: Furosemide (Furosemide 20 Mg Tablet) 20 mg PO DAILY [facility]; Protocol Last Admin: 01/04/22 08:28 Dose: 20 mg Documented by: Ibuprofen (Ibuprofen 600 Mg Tablet) 600 mg PO Q6H PRN PRN Reason: mild-mod pain Last Admin: 01/02/22 11:20 Dose: 600 mg Documented by: Levothyroxine Sodium (Levothyroxine Sodium 200 Mcg Tablet) 200 mcg PO DAILY@0600 [facility] Last Admin: 01/04/22 05:52 Dose: 200 mcg Documented by: Losartan Potassium (Losartan Potassium 50 Mg Tablet) 50 mg PO DAILY [facility]; Protocol Last Admin: 01/04/22 08:28 Dose: 50 mg Documented by: Magnesium Hydroxide (Milk Of Magnesia 30 Ml Oral.Susp) 30 ml PO DAILY PRN PRN Reason: Constipation Last Admin: 12/21/21 08:08 Dose: 30 ml Documented by: Olanzapine (Olanzapine 2.5 Mg Tablet) 2.5 mg PO BEDTIME [facility] Last Admin: 01/03/22 22:13 Dose: 2.5 mg Documented by: Omeprazole (Omeprazole 20 Mg Capsule.) 20 mg PO DAILY@0600 [facility] Last Admin: 01/04/22 05:52 Dose: 20 mg Documented by: Paliperidone Palmitate (Paliperidone Palmitate 156 Mg/Ml Syringe) 156 mg IM ONCE ONE Stop: 01/06/22 07:01 Pharmacy Consult (Consult Rx Perform Med Rec) 1 each MISCELLANE ONCE PRN PRN Reason: Consult order Potassium Chloride (Potassium Chloride Er 20 Meq Tab.Er.Prt) 20 meq PO DAILY [facility] Last Admin: 01/04/22 08:28 Dose: 20 meq Documented by: Pramipexole Dihydrochloride (Pramipexole Di-Hcl 0.125 Mg Tablet) 0.125 mg PO TID [facility] Last Admin: 01/04/22 08:28 Dose: 0.125 mg Documented by: Tamsulosin HCl (Tamsulosin Hcl 0.4 Mg Capsule) 0.4 mg PO DAILY [facility] Last Admin: 01/04/22 08:28 Dose: 0.4 mg Documented by: Trazodone HCl (Trazodone Hcl 100 Mg Tablet) 100 mg PO BEDTIME PRN PRN Reason: Insomnia Last Admin: 01/03/22 22:16 Dose: 100 mg Documented by: Trihexyphenidyl HCl (Trihexyphenidyl Hcl 2 Mg Tablet) 2 mg PO BID [facility] Last Admin: 01/04/22 08:28 Dose: 2 mg Documented by: Allergies Allergies Allergy/AdvReac Type Severity Reaction Status Date / Time lisinopril [LISINOPRIL] Allergy Intermediate RASH Verified 12/20/21 11:56 Assessment & Plan Assessment & Plan (1) Parkinsonism: Status: Acute Code(s): G20 - Parkinson's disease Assessment and Plan: [id number] parkinsonism likely related to exposure to antipsychotic medicines worsened with underlying dementia or diffuse cerebral degeneration. Main emphasis would be control of psychiatric medicines with parkinsonism taken as side effect of medicines. I would recommend starting him on benztropine 0.5 twice a day. A trial of carbidopa levodopa 25/100 3 times a day can also be given for a day or 2 to see if that would improve his ambulation neuro note above read and appreciated . Plan case reviewed with dr riley with mother pt seen bradykinetic hunched over requires walker ? from invega sustena may need tochange to alternative start cogentin consider dopamine agonist pt with grandiose delusions initial doses of Invega staining given 222 mg did not drop down to 156 mg may benefit from another dose when next due of perhaps 116 mg oral or lower thought of restarting olanzapine however did not do well on this most recently and not reliable to take on a daily basis would try long-acting injectable at much lower dose. . Extensive discussion of history different and arrangements were help with the patient's psychiatrist Dr. Bolden and also with the patient's mother who does give a clear history treatments Plan 1. Continue with same treatment. 2. Gather collateral information. 3. Add Artane 2 mg po bid. 4. Restart Invega Sustenna on discharge at a lower dose I spent ___20___ minutes with the patient and/or on the patient floor today, greater than?50% of which was spent counseling/coordinating care. Reason for contiued inpatient stay Substantial Risk for: inability to function, rapid decompensation and med/psych decompensation
[2022-01-04] MEDS: Dicyclomine HCl 10 MG CAPSULE 20 MG PO (19:48)
[2022-01-04] MEDS: OLANZapine 2.5 MG TABLET PO (19:48)
[2022-01-04] MEDS: traZODone HCL 100 MG TABLET PO (19:49)
[2022-01-04] MEDS: Acetaminophen 325 MG TABLET 650 MG PO (19:49)
[2022-01-04] MEDS: Donepezil HCl 5 MG TABLET PO (19:50)
[2022-01-04 20:00] VITALS: BP 121/59; PULSE 48; RESP 20; TEMP 36.1; O2SAT 98
[2022-01-05] MEDS: Fluticasone Propionate Nasal 16 GM SPRAY 1 SPRAY NOSTRIL-B ×2 (01:40→08:56)
[2022-01-05] MEDS: Levothyroxine Sodium 200 MCG TABLET PO (05:34)
[2022-01-05] MEDS: Omeprazole 20 MG CAPSULE.DR PO (05:34)
[2022-01-05 05:38] VITALS: BP 157/67; PULSE 58; RESP 18; TEMP 36.3; O2SAT 94
--- NOTE | 2022-01-05 05:39 | PC.NURSE ---
awake. c/o of sob and nasal congestion. pt states that this is [facility] and that he will soon be on tv [facility] resp effort is regular unlabored. vital signs 157/67 97.4 p. 58 rr 18 sao2 94%. pt does have audible nasal congestion. pt assisted to bathroom with walker.voided in toilet with hesitancy.
[2022-01-05] MEDS: Trihexyphenidyl HCL 2 MG TABLET PO ×2 (08:56→20:33)
[2022-01-05] MEDS: Finasteride 5 MG TABLET PO (08:56)
[2022-01-05] MEDS: Atorvastatin Calcium 40 MG TABLET PO (08:56)
[2022-01-05] MEDS: Tamsulosin HCL 0.4 MG CAPSULE PO (08:56)
[2022-01-05] MEDS: Potassium Chloride ER 20 MEQ TAB.ER.PRT PO (08:56)
[2022-01-05] MEDS: Divalproex Sodium 250 MG TABLET.DR PO ×2 (08:56→20:33)
[2022-01-05] MEDS: Albuterol Sulfate 90 MCG 8 GM INHALER 2 PUFF INHALE (08:56)
[2022-01-05] MEDS: Furosemide 20 MG TABLET PO (08:56)
[2022-01-05] MEDS: Pramipexole Di-HCL 0.125 MG TABLET PO ×3 (08:56→20:33)
[2022-01-05] MEDS: Losartan Potassium 50 MG TABLET PO (08:56)
--- NOTE | 2022-01-05 09:39 | P.PNPSI_ITS ---
Subjective Subjective Date of Service: 01/05/22 Reason For Visit: psychosis Subjective Notes: Conditional Voluntary Interim History: The nursing staff reported the patient was angry with his roommate since he was very loud. He took Tylenol p.r.n. for back pain. On interview the patient denies new symptoms he is excited to be discharged tomorrow Mental Status Exam Mental Status Exam Patient Appearance: Well Grooomed Patient Orientation: Person Level of Consciousness: Awake Mood Description: Withdrawn Affect Description: Constricted Patient Cognition Impaired: Yes Ability to Follow Directions: Good Speech Pattern: Clear Hallucinations: None Delusions: Paranoid Ideation Thought Process: Linear Thought Content: positive for Circumstantial Judgement: Fair Diagnostics Vital Signs (24Hr): Vital Signs - 24 hr 01/04/22 20:00 01/05/22 05:38 Temperature 97 F 97.4 F Pulse Rate 48 L 58 Respiratory Rate 20 18 Blood Pressure 121/59 L 157/67 H Pulse Oximetry 98 94 BMI result Body Mass Index 29.9 Labs Results: 12/20/21 12:14 12/22/21 10:43 Imaging Radiology Impressions: ITS Impressions Head CT 12/20/21 12:42 IMPRESSION: No acute intracranial findings. Medications Medications Current Medications Acetaminophen (Acetaminophen 325 Mg Tablet) 650 mg PO Q6H PRN PRN Reason: Headache/Pain Mild Scale (1-3) Last Admin: 01/04/22 19:49 Dose: 650 mg Documented by: Al Hydroxide/Mg Hydroxide (Magnesium Hydrox/Alum Hydrox 30 Ml Oral.Susp) 30 ml PO Q6H PRN PRN Reason: Heartburn/Nausea Albuterol Sulfate (Albuterol Sulfate 90 Mcg 8 Gm Inhaler) 2 puff INHALE Q4H PRN PRN Reason: bronchospasm Last Admin: 01/05/22 08:56 Dose: 2 puff Documented by: Atorvastatin Calcium (Atorvastatin Calcium 40 Mg Tablet) 40 mg PO DAILY [facility] Last Admin: 01/05/22 08:56 Dose: 40 mg Documented by: Dicyclomine HCl (Dicyclomine Hcl 10 Mg Capsule) 20 mg PO TID PRN PRN Reason: for pain Last Admin: 01/04/22 19:48 Dose: 20 mg Documented by: Divalproex Sodium (Divalproex Sodium 250 Mg Tablet.) 250 mg PO BID [facility] Last Admin: 01/05/22 08:56 Dose: 250 mg Documented by: Donepezil HCl (Donepezil Hcl 5 Mg Tablet) 5 mg PO BEDTIME [facility] Last Admin: 01/04/22 19:50 Dose: 5 mg Documented by: Famotidine (Famotidine 20 Mg Tablet) 20 mg PO BID PRN PRN Reason: abdominal pain Last Admin: 12/25/21 20:24 Dose: 20 mg Documented by: Finasteride (Finasteride 5 Mg Tablet) 5 mg PO DAILY [facility] Last Admin: 01/05/22 08:56 Dose: 5 mg Documented by: Fluticasone Propionate (Fluticasone Propionate Nasal 16 Gm [place]) 1 spray NOSTRIL-B BID [facility] Last Admin: 01/05/22 08:56 Dose: 1 spray Documented by: Furosemide (Furosemide 20 Mg Tablet) 20 mg PO DAILY [facility]; Protocol Last Admin: 01/05/22 08:56 Dose: 20 mg Documented by: Ibuprofen (Ibuprofen 600 Mg Tablet) 600 mg PO Q6H PRN PRN Reason: mild-mod pain Last Admin: 01/02/22 11:20 Dose: 600 mg Documented by: Levothyroxine Sodium (Levothyroxine Sodium 200 Mcg Tablet) 200 mcg PO DAILY@0600 [facility] Last Admin: 01/05/22 05:34 Dose: 200 mcg Documented by: Losartan Potassium (Losartan Potassium 50 Mg Tablet) 50 mg PO DAILY [facility]; Protocol Last Admin: 01/05/22 08:56 Dose: 50 mg Documented by: Magnesium Hydroxide (Milk Of Magnesia 30 Ml Oral.Susp) 30 ml PO DAILY PRN PRN Reason: Constipation Last Admin: 12/21/21 08:08 Dose: 30 ml Documented by: Olanzapine (Olanzapine 2.5 Mg Tablet) 2.5 mg PO BEDTIME [facility] Last Admin: 01/04/22 19:48 Dose: 2.5 mg Documented by: Omeprazole (Omeprazole 20 Mg Capsule.Dr) 20 mg PO DAILY@0600 [facility] Last Admin: 01/05/22 05:34 Dose: 20 mg Documented by: Paliperidone Palmitate (Paliperidone Palmitate 156 Mg/Ml Syringe) 156 mg IM ONCE ONE Stop: 01/06/22 07:01 Pharmacy Consult (Consult Rx Perform Med Rec) 1 each MISCELLANE ONCE PRN PRN Reason: Consult order Potassium Chloride (Potassium Chloride Er 20 Meq Tab.Er.Prt) 20 meq PO DAILY [facility] Last Admin: 01/05/22 08:56 Dose: 20 meq Documented by: Pramipexole Dihydrochloride (Pramipexole Di-Hcl 0.125 Mg Tablet) 0.125 mg PO TID [facility] Last Admin: 01/05/22 08:56 Dose: 0.125 mg Documented by: Tamsulosin HCl (Tamsulosin Hcl 0.4 Mg Capsule) 0.4 mg PO DAILY [facility] Last Admin: 01/05/22 08:56 Dose: 0.4 mg Documented by: Trazodone HCl (Trazodone Hcl 100 Mg Tablet) 100 mg PO BEDTIME PRN PRN Reason: Insomnia Last Admin: 01/04/22 19:49 Dose: 100 mg Documented by: Trihexyphenidyl HCl (Trihexyphenidyl Hcl 2 Mg Tablet) 2 mg PO BID [facility] Last Admin: 01/05/22 08:56 Dose: 2 mg Documented by: Allergies Allergies Allergy/AdvReac Type Severity Reaction Status Date / Time lisinopril [LISINOPRIL] Allergy Intermediate RASH Verified 12/20/21 11:56 Assessment & Plan Assessment & Plan (1) Parkinsonism: Status: Acute Code(s): G20 - Parkinson's disease Assessment and Plan: [id number] parkinsonism likely related to exposure to antipsychotic m edicines worsened with underlying dementia or diffuse cerebral degeneration. Main emphasis would be control of psychiatric medicines with parkinsonism taken as side effect of medicines. I would recommend starting him on benztropine 0.5 twice a day. A trial of carbidopa levodopa 25/100 3 times a day can also be given for a day or 2 to see if that would improve his ambulation neuro note above read and appreciated . Plan case reviewed with dr riley with mother pt seen bradykinetic hunched over requires walker ? from invega sustena may need tochange to alternative start cogentin consider dopamine agonist pt with grandiose delusions initial doses of Invega staining given 222 mg did not drop down to 156 mg may benefit from another dose when next due of perhaps 116 mg oral or lower thought of restarting olanzapine however did not do well on this most recently and not reliable to take on a daily basis would try long-acting injectable at much lower dose. . Extensive discussion of history different and arrangements were help with the patient's psychiatrist Dr. Bolden and also with the patient's mother who does give a clear history treatments Plan 1. Continue with same treatment. 2. Gather collateral information. 3. Add Artane 2 mg po bid. 4. Restart Invega Sustenna on discharge at a lower dose I spent ___20___ minutes with the patient and/or on the patient floor today, greater than?50% of which was spent counseling/coordinating care. Reason for contiued inpatient stay Substantial Risk for: inability to function, rapid decompensation and med/psych decompensation
[2022-01-05 20:00] VITALS: BP 142/66; PULSE 53; TEMP 36.3; O2SAT 99
[2022-01-05] MEDS: Donepezil HCl 5 MG TABLET PO (20:33)
[2022-01-05] MEDS: OLANZapine 2.5 MG TABLET PO (20:33)
[2022-01-05] MEDS: traZODone HCL 100 MG TABLET PO (22:32)
[2022-01-06 07:35] VITALS: BP 109/51; PULSE 62; RESP 14; TEMP 36.4; O2SAT 95
--- NOTE | 2022-01-06 08:13 | P.DS_ITS ---
DS: Providers Provider Date of Service: 01/06/22 Date of admission: 12/20/21 20:58 Date of discharge: 01/06/22 Primary care physician: Samuel Schneider MD Consults: 12/26/21 15:03 Consult to Neurology Routine Consulting Provider: [facility] Reason for consultation: ? parkinson vs parkinsonism rec tx Attending physician on discharge: Renny Barrett DS: Diagnosis Discharge Diagnosis (1) Parkinsonism: Status: Acute DS: Medications Discharge Medications Home Medications: Home Medications Medication Instructions Recorded Confirmed furosemide 20 mg tablet 20 mg PO DAILY 11/22/21 12/20/21 levothyroxine 200 mcg tablet 200 mcg PO DAILY 11/22/21 12/20/21 albuterol sulfate 2.5 mg INHALATION TID PRN 12/20/21 12/20/21 famotidine 20 mg tablet 1 tab PO BID PRN 12/20/21 12/20/21 Previous Rx's Medication Instructions Recorded albuterol sulfate 90 mcg/actuation 2 puff INHALATION Q4-6H PRN #8.5 g 07/01/21 aerosol inhaler (ProAir HFA) losartan 50 mg tablet 50 mg PO DAILY 30 Days #30 tab 08/16/21 dicyclomine 20 mg tablet 20 mg PO TID PRN #90 tab 08/29/21 omeprazole 20 mg capsule,delayed 20 mg PO DAILY #30 cap 08/29/21 release atorvastatin 40 mg tablet 40 mg PO DAILY #90 tab 09/09/21 potassium chloride 20 mEq 20 meq PO DAILY 30 Days #30 tab 09/09/21 tablet,extended release(part/cryst) tamsulosin 0.4 mg capsule 0.4 mg PO DAILY #90 cap 09/09/21 finasteride 5 mg tablet 5 mg PO DAILY 30 Days #30 tab 09/19/21 divalproex 500 mg tablet,delayed 500 mg PO BID 30 Days #60 tab 12/10/21 release fluticasone propionate 50 1 spray INTRANASAL BID 30 Days #1 g 12/10/21 mcg/actuation nasal spray,suspension paliperidone palmitate 234 mg/1.5 234 mg (1.5 mL) IM QMONTH #1.5 ml 12/10/21 mL intramuscular syringe (Invega Sustenna) Mental Status Exam Mental Status Exam Patient Appearance: Appropriate Patient Orientation: Person Level of Consciousness: Awake Patient Behavior: Guarded and Suspicious Mood Description: Withdrawn Affect Description: Constricted Patient Cognition Impaired: Yes Ability to Follow Directions: Good Speech Pattern: Clear Hallucinations: Auditory Delusions: Paranoid Ideation Thought Process: Distracted and Evasive Thought Content: positive for [place] and positive for Poverty of Content Judgement: Fair Data Imaging Diagnostic Imaging Impressions Head CT 12/20/21 12:42 IMPRESSION: No acute intracranial findings. DS: Summary Hospital Course Hospital Course: The patient was admitted into the facility since he went to his ex-'s home and the police was called. Please see the HPI for further details. On admission, the patient complained of involuntary movements mostly extrapy ramidal symptoms since he was recently started on Invega Sustenna on her is last admission a month ago. Artane was started with for improvement of his side effects. While he was in the unit, the patient looked more pleasant and cooperative come before he was last elusive and more reality oriented. He was fully aware that it was a big mistake due to his ex-'s house and he could have legal problems. In the unit, we did a [place] test and he scored very low 15/30. Also there was the concern about driving and the possibility of an and safe behavior so I filed for a DMV assessment. We have a family meeting with his elderly mother and the plan was to lower Invega Sustenna to 156 to avoid side effects. Also, the social sciences chair worked on increasing his hours for ancillary services. Since there were no safety concerns discharge planning was discussed. Time spent discussing smoking cessation with patient: 3 to 10 minutes Status at Discharge Functional status at discharge: independent ambulation Time Spent with Patient Time attestation: Total time spent providing and/or coordinating discharge services: Time spent: Less than 30 minutes Discharge Plan Discharge Patient Disposition: Home, Self-Care Discharge Diagnosis: Bipolar disorder type 1 most recent episode manic with psychotic features. Dementia Referrals: Sunil Case [facility] [Other] - 01/07/22 (Your [facility]NA will resume on 01/07/22 and your nurse will come to see you at home. You ahve also been referred for occupational therapy and social work services through the VNA. ) Dr Lety CASTILLO [facility] [Other] - 01/07/22 12:00 pm [facility] [Other] - 01/06/22 (Sangeeta Stafford is your manager research and your personal care and homemaking hours, home delivered meals, and money management program will resume at time of discharge. ) Samuel Schneider MD [Primary Care Provider] - 1 Week Discharge Medications: New albuterol sulfate [Ventolin HFA] 90 mcg/actuation Hfa Aerosol Inhaler 2 puff inhalation Q4H PRN (Reason: bronchospasm) Qty: 6.7 0RF dicyclomine 10 mg Capsule 20 mg PO TID PRN (Reason: for pain) 30 Days Qty: 90 0RF atorvastatin 40 mg Tablet 40 mg PO DAILY 30 Days Qty: 30 0RF donepezil 5 mg Tablet 5 mg PO BEDTIME 30 Days Qty: 30 0RF tamsulosin 0.4 mg Capsule 0.4 mg PO DAILY 30 Days Qty: 30 0RF losartan 50 mg Tablet 50 mg PO DAILY 30 Days Qty: 30 0RF Protocol: Hold for SBP< HOLD for SBP < : 90 divalproex 250 mg Tablet,Delayed Release (Dr/Ec) 250 mg PO BID 30 Days Qty: 60 0RF olanzapine 2.5 mg Tablet 2.5 mg PO BEDTIME 30 Days Qty: 30 0RF trazodone 100 mg Tablet 100 mg PO BEDTIME PRN (Reason: Insomnia) 30 Days Qty: 30 0RF pramipexole 0.125 mg Tablet 0.125 mg PO TID 30 Days Qty: 90 0RF ibuprofen 600 mg Tablet 600 mg PO Q6H PRN (Reason: mild-mod pain) 30 Days Qty: 60 0RF trihexyphenidyl 2 mg Tablet 2 mg PO BID 30 Days Qty: 60 0RF Invega Sustenna 156 mg/mL syringe 156 mg IM QMONTH Qty: 1 0RF Rx Instructions: Next injection due on 02/05/2022 Continued albuterol sulfate 2.5 mg /3 mL (0.083 %) solution for nebulization 2.5 mg inhalation TID PRN (Reason: Shortness Of Breath) 0RF potassium chloride 20 mEq tablet,ER particles/crystals 20 meq PO DAILY 30 Days Qty: 30 0RF Rx Instructions: to be taken together with Furosemide in the morning omeprazole 20 mg capsule,delayed release(DR/EC) 20 mg PO DAILY Qty: 30 3RF levothyroxine 200 mcg tablet 200 mcg PO DAILY Qty: 30 0RF furosemide 20 mg tablet 20 mg PO DAILY 30 Days Qty: 30 0RF fluticasone propionate 50 mcg/actuation [place],Suspension 1 spray intranasal BID 30 Days Qty: 16 0RF finasteride 5 mg tablet 5 mg PO DAILY 30 Days Qty: 30 2RF Changed famotidine 20 mg tablet 20 mg PO BID PRN (Reason: abdominal pain) Qty: 30 0RF Discontinued albuterol sulfate [ProAir HFA] 90 mcg/actuation HFA aerosol inhaler 2 puff inhalation Q4-6H PRN (Reason: bronchospasm) Qty: 8.5 0RF dicyclomine 20 mg tablet 20 mg PO TID PRN (Reason: for pain) Qty: 90 3RF atorvastatin 40 mg tablet 40 mg PO DAILY Qty: 90 1RF tamsulosin 0.4 mg capsule 0.4 mg PO DAILY Qty: 90 1RF divalproex 500 mg Tablet,Delayed Release (Dr/Ec) 500 mg PO BID 30 Days Qty: 60 0RF Invega Sustenna 234 mg/1.5 mL syringe 234 mg IM QMONTH Qty: 1.5 0RF losartan 50 mg tablet 50 mg PO DAILY 30 Days Qty: 30 4RF Discharge Orders: Discharge Order (Routine); Ordered 01/06/22 Ordered By: Renny Barrett Diet: advance to usual diet Activity on Discharge: As tolerated Stand Alone Forms: Patient Portal Discharge page Care Plan Goals: Care plan goals achieved in the unit Health Concerns: Follow-up as an outpatient Plan of Treatment: Continues in outpatient Assessment: Middle-aged male with a history of traumatic brain injury psychosis readmitted after disorganized behavior. He was presented with exacerbation of EPS due to the recent start of Invega Sustenna. He responded fairly well to Artane and he will continue with the lower dose of Invega Sustenna. At this moment ready for discharge
[2022-01-06] MEDS: Pramipexole Di-HCL 0.125 MG TABLET PO (09:07)
[2022-01-06] MEDS: Atorvastatin Calcium 40 MG TABLET PO (09:07)
[2022-01-06] MEDS: Trihexyphenidyl HCL 2 MG TABLET PO (09:07)
[2022-01-06] MEDS: Furosemide 20 MG TABLET PO (09:07)
[2022-01-06] MEDS: Potassium Chloride ER 20 MEQ TAB.ER.PRT PO (09:07)
[2022-01-06] MEDS: Omeprazole 20 MG CAPSULE.DR PO (09:07)
[2022-01-06] MEDS: Losartan Potassium 50 MG TABLET PO (09:07)
[2022-01-06] MEDS: Divalproex Sodium 250 MG TABLET.DR PO (09:07)
[2022-01-06] MEDS: Tamsulosin HCL 0.4 MG CAPSULE PO (09:07)
[2022-01-06] MEDS: Acetaminophen 325 MG TABLET 650 MG PO (09:08)
[2022-01-06] MEDS: Levothyroxine Sodium 200 MCG TABLET PO (09:08)
[2022-01-06] MEDS: Finasteride 5 MG TABLET PO (09:08)
[2022-01-06] MEDS: Paliperidone Palmitate 156 MG/ML SYRINGE IM (11:13)
--- NOTE | 2022-01-06 12:58 | PC.NURSE ---
Patient alert and oriented, med compliant. Vital signs stable this AM. Patient aware of discharge today, patient expressed readiness for discharge. Discharge education provided to patient and faxed to pcp. Patient handed all belongings and escorted off unit by staff.
== END 2022-01-06 12:55 | disposition home or self-care (01) | DRG 885 ==
LOC: HO.ED 18:08 → HO.PADLT16 21:05 → HO.PGERI 12-23 14:08
PROVIDERS: Physician Assistant; Social Worker; Admitting Provider Psychiatry & Neurology Psychiatry; Emergency Provider Emergency Medicine; PCP Internal Medicine; Visit Provider Psychiatry & Neurology Psychiatry
DX: F31.2 Bipolar disorder, current episode manic severe with psychotic features (principal); F02.81 Dementia in other diseases classified elsewhere, unspecified severity, with behavioral disturbance; J44.9 Chronic obstructive pulmonary disease, unspecified; E03.9 Hypothyroidism, unspecified; E11.9 Type 2 diabetes mellitus without complications; E78.5 Hyperlipidemia, unspecified; G20 Parkinson's disease; I10 Essential (primary) hypertension; Z87.820 Personal history of traumatic brain injury; G25.1 Drug-induced tremor; T43.595A Adverse effect of other antipsychotics and neuroleptics, initial encounter; Z20.822 Contact with and (suspected) exposure to COVID-19; Z87.891 Personal history of nicotine dependence; Z79.1 Long term (current) use of non-steroidal anti-inflammatories (NSAID); Z79.51 Long term (current) use of inhaled steroids; Z79.890 Hormone replacement therapy; Z79.899 Other long term (current) drug therapy
CPT/HCPCS: 36415; 70450; 80048; 80053; 80061; 80076; 80164; 80307; 81001; 81003; 82077; 82140; 82607; 82746; 83036; 83735; 84439; 84443; 84484; 85025; 85610; 85730; 87635; 93005; 97163; 99285; J2426

== ENCOUNTER 2022-01-29 11:38 | Emergency (ER) | payer MEDICARE, MEDICAID, SELFPAY ==
[2022-01-29 11:45] VITALS: BP 133/60; BP 138/64; PULSE 70; PULSE 71; RESP 16; TEMP 36.8; O2SAT 96; O2SAT 98; BMI 31.7
--- NOTE | 2022-01-29 11:57 | ECG_ITS ---
Test Reason : MED EVAL Blood Pressure : / mmHG Vent. Rate : 064 BPM Atrial Rate : 064 BPM P-R Int : 132 ms QRS Dur : 168 ms QT Int : 480 ms P-R-T Axes : 012 007 129 degrees QTc Int : 495 ms Normal sinus rhythm Left bundle branch block Abnormal ECG When compared with ECG of 20-DEC-2021 12:40, T wave inversion more evident in Lateral leads Referred By: Kathy Mccabe Electronically Signed By:Phil Espinal
--- NOTE | 2022-01-29 12:00 | ED_ITS ---
HPI - Altered Mental Status General Chief Complaint: Altered Mental Status Stated Complaint: CONFUSED,? PSYCH RELATED PER EMS Time Seen by Provider: 01/29/22 11:56 Source: patient, EMS, RN notes reviewed and old records reviewed Mode of arrival: EMS Limitations: altered mental status History of Present Illness HPI narrative: 71 y/o male with history of Parkinsonism, TBI, bipolar 1 disorder with mikey and psychotic features, dementia, hypothyroidism who presents to the ER via EMS after he was trespassing on his ex-'s property. He states he is still with his Nathalie and he was trespassing on his a friend VENANCIO's property because he wanted to buy it, that he is a billionare. He drove there from his home in [place], [place] per his report. He is oriented x3 on arrival and wants to go home. He denies all physical complaints. Per chart review patient had similar presentation x2 and was just discharged from Psych unit here on 01/06/22. He was previously treated with Invega Sustenna with complaints of extrapyramidal symptoms so dose was lowered and he was started on Artane per d/c summary. MD complaint: confusion Onset (ago): unknown Timing confirmed by: spouse Severity: similar to previous episodes Consistency of symptoms: waxing and waning Associated symptoms: denies other symptoms Related Data Home Medications Medication Instructions Recorded Confirmed albuterol sulfate 2.5 mg INHALATION TID PRN 12/20/21 12/20/21 Previous Rx's Medication Instructions Recorded albuterol sulfate 90 mcg/actuation 2 puff INHALATION Q4H PRN #6.7 g 01/06/22 aerosol inhaler (Ventolin HFA) atorvastatin 40 mg tablet 40 mg PO DAILY 30 Days #30 tab 01/06/22 dicyclomine 10 mg capsule 20 mg PO TID PRN 30 Days #90 cap 01/06/22 divalproex 250 mg tablet,delayed 250 mg PO BID 30 Days #60 tab 01/06/22 release donepezil 5 mg tablet 5 mg PO BEDTIME 30 Days #30 tab 01/06/22 famotidine 20 mg tablet 20 mg PO BID PRN #30 tab 01/06/22 finasteride 5 mg tablet 5 mg PO DAILY 30 Days #30 tab 01/06/22 fluticasone propionate 50 1 spray INTRANASAL BID 30 Days #16 01/06/22 mcg/actuation nasal g spray,suspension furosemide 20 mg tablet 20 mg PO DAILY 30 Days #30 tab 01/06/22 ibuprofen 600 mg tablet 600 mg PO Q6H PRN 30 Days #60 tab 01/06/22 levothyroxine 200 mcg tablet 200 mcg PO DAILY #30 tab 01/06/22 losartan 50 mg tablet 50 mg PO DAILY 30 Days #30 tab 01/06/22 olanzapine 2.5 mg tablet 2.5 mg PO BEDTIME 30 Days #30 tab 01/06/22 omeprazole 20 mg capsule,delayed 20 mg PO DAILY #30 cap 01/06/22 release paliperidone palmitate 156 mg/mL 156 mg IM QMONTH #1 ml 01/06/22 intramuscular syringe (Invega Sustenna) potassium chloride 20 mEq 20 meq PO DAILY 30 Days #30 tab 01/06/22 tablet,extended release(part/cryst) pramipexole 0.125 mg tablet 0.125 mg PO TID 30 Days #90 tab 01/06/22 tamsulosin 0.4 mg capsule 0.4 mg PO DAILY 30 Days #30 cap 01/06/22 trazodone 100 mg tablet 100 mg PO BEDTIME PRN 30 Days #30 01/06/22 tab trihexyphenidyl 2 mg tablet 2 mg PO BID 30 Days #60 tab 01/06/22 tramadol 50 mg tablet 50 mg PO TID PRN 15 Days #45 tab 01/14/22 cefuroxime axetil 250 mg tablet 250 mg PO BID #10 tab 01/29/22 Allergies Allergy/AdvReac Type Severity Reaction Status Date / Time lisinopril [LISINOPRIL] Allergy Intermediate RASH Verified 12/20/21 11:56 Review of Systems Review of Systems: Constitutional: No Fever, No Chills ENT/Mouth: No sore throat, No Rhinorrhea, No Swallowing Difficulty Eyes: No Eye Pain, No Swelling, No Redness Cardiovascular: No Chest Pain, No SOB, No Orthopnea, No Edema Respiratory: No Cough, No Sputum, No Wheezing, No dyspnea Gastrointestinal: No Nausea, No Vomiting, No Diarrhea, No abdominal Pain, No Hematochezia, No Melena Genitourinary: No Dysuria, No Urinary Frequency, No Hematuria Musculoskeletal: No joint pain, No Myalgias Skin: + Skin Lesions, No rash Neuro: No Weakness, No Numbness, No Dizziness, No Headache Psych: No Anxiety/Panic, No Depression, No SI, No HI Heme/Lymph: No Bruising, No Lymphadenopathy Endocrine: No Polyuria, No Polydipsia [facility] Past Medical History Medical History Abdominal pain, chronic, right lower quadrant Acquired hypothyroidism Allergic rhinitis Anxiety Benign essential hypertension Benign prostatic hyperplasia with urinary obstruction CAD (coronary artery disease) Constipation COPD (chronic obstructive pulmonary disease) Diabetes mellitus GERD (gastroesophageal reflux disease) Insomnia Obesity (BMI 30-39.9) Osteoarthritis Pure hypercholesterolemia Vitamin D deficiency Surgical History History of arthroscopic knee surgery History of cardiac catheterization History of colectomy History of esophagogastroduodenoscopy (EGD) History of excision of pilonidal cyst History of eye surgery History of skin graft Hx of colonoscopy Family History Family History Father Stroke CVD (cerebrovascular disease) Mother Hypertension Social History Social History Household Members: None Housing: Apartment Do you presently have visiting nurse or other home services: Yes (Had [facility] ([facility]) and [facility]) Unable to assess alcohol history related to: Refusing to respond Alcohol intake: never Patient Tobacco Use Status: Former Tobacco user Quit Date: long time ago Tobacco use type: Cigarette and Cigar Years Smoked: unknown e-Cigarette/Vaping Use: Never Used Second Hand Smoke Exposure: No Advance Directives: No Advance Directives Information Provided: No service: No Current occupational status: retired Sexual orientation: Straight/Heterosexual Physical Exam ED Vital Signs: Vital Signs - 24 hr 01/29/22 11:45 01/29/22 12:46 01/29/22 15:00 Temperature 98.3 F 98.6 F 98.9 F Pulse Rate 71 73 74 Respiratory Rate 16 16 18 Blood Pressure 133/60 159/64 H 147/60 H Pulse Oximetry 96 98 98 BMI result Body Mass Index 31.7 Appearance: Alert elderly male sitting up in bed, Oriented X3. No acute distress. Eyes: Pupils equal, round and reactive to light. ENT: Pharynx normal. Neck: Normal inspection. Neck supple. CVS: Normal heart rate and rhythm. Pulses normal. Respiratory: No respiratory distress. Breath sounds normal. Abdomen: Soft and nontender. +BS x4 Skin: Skin warm and dry. Normal skin color. Normal skin turgor. No rashes. Extremities: right anterior almazan with mild area of erythema and warmth, 2+ LE edema bilaterally. nontender calves bilaterally. normal ROM x4. resting tremor of bilateral hands L>R Neuro: Oriented X 3. No motor deficit. No sensory deficit. Steady gait. CN II- XII intact. Course Course Course Narrative: 71 y/o male with history of dementia, Parkinsonism, bipolar disorder with psychotic features presenting via EMS after he was found trespassing on his ex- 's property. Similar episodes in the past requiring hospitalization. Agreeable to basic labs. Refusing head CT. Nonfocal neuro exam with chronic tremors, no focal weakness. Reevaluation(s) Reevaluation #1: Labs showing some mild anemia, electrolytes are within normal limits. His TSH is low which it has been before with a normal T4. He is on Synthroid and reports compliance. He has gone to the bathroom several times but is refusing a urine sample. He has no leukocytosis or fever. He does have a history of UTI in November 2021. Will re-attempt getting urinalysis to rule out UTI. Will need N evaluation given his presentation. Physician observation started at 14:27. Patient placed in physician observation because patient is awaiting [facility] evaluation for the possible need of inpatient psych admission. At the time observation was started patient's vital signs were stable. Patient is alert and oriented. Neuro exam is non-focal. CV: RRR and lungs are clear. Will continue to monitor. Reevaluation #2: Patient seen and evaluated the care team. This is the patient's baseline behavior. He lives with his mother and constantly frequency a home on [address] [facility] in [facility] with a fixed delusion that a woman named Nathalie lives there. He has no ex- named Nathalie and she does not live there. During last admission paperwork was sent to the V to revoke his license. He has been to the bathroom several times to urinate in the few hours he has been in the emergency department. He refuses to give a urinalysis. He is paranoid. Given his urinary frequency will empirically treat for urinary tract infection with 5 days of cefuroxime. Plan discussed with patient's mother who he lives with. Stable for discharge home. He has his next dose of intramuscular Invega next week. Mom reports the medication has been helping his behaviors. Will discontinue physician observation at this time. Stable for DC home in the care of his elderly mother. Time: 16:53 Consultations Consultation #1: CARE MDM - Altered Mental Status Lab Data Result diagrams: 01/29/22 13:08 01/29/22 13:08 Labs: Lab Results 01/29/22 01/29/22 01/29/22 Range/Units 13:07 13:08 13:08 WBC 5.9 (4.8-10.8) X10*3/uL RBC 4.40 L (4.60-5.80) X10*6/uL Hgb 13.1 L (14.0-18.0) g/dl Hct 40.5 L (42.0-52.0) % MCV 92.0 (80.0-98.0) fL MCH 29.8 (27.0-33.0) pg MCHC 32.3 (31.0-36.0) g/dl RDW 13.2 (11.0-16.0) % Plt Count 174 (160-400) X10*3/uL MPV 9.6 (9.4-12.4) fL Immature Gran % (Auto) 0.2 (0.0-0.4) % Neut % (Auto) 76.9 H (45-73) % Lymph % (Auto) 12.6 L (20-40) % [place] % (Auto) 9.4 (2-11) % Eos % (Auto) 0.7 (0-4) % Baso % (Auto) 0.2 (0-2) % Lymph # (Auto) 0.7 L (1.2-4.9) X10*3/uL [place] # (Auto) 0.6 (0.1-1.2) X10*3/uL Eos # (Auto) 0.0 (0.0-0.4) X10*3/uL Baso # (Auto) 0.0 (0.0-0.2) X10*3/uL Abs Immat Gran (auto) 0.01 (0.00-0.03) X10*3/uL Absolute Neuts (auto) 4.5 (2.0-8.3) x10*3/uL Absolute Nucleated RBC 0.000 (0.0-0.012) X10*3/uL Nucleated RBC % (auto) 0.0 (0.0-0.2) /100WBC Sodium 142 (135-145) mmol/L Potassium 4.0 (3.3-5.1) mmol/L Chloride 108 (96-108) mmol/L Carbon Dioxide 26 (22-29) mmol/L Anion Gap 12 (12-20) BUN 29 H (9-16) mg/dL Creatinine 0.98 (0.5-1.4) mg/dL Estim Creat Clear Calc 73.6 Estimated GFR > 60 Random Glucose 91 (60-115) mg/dL Calcium 9.3 (8.4-10.2) mg/dL Magnesium 2.1 (1.6-2.6) mg/dL Total Bilirubin 0.7 (0.0-1.0) mg/dL Direct Bilirubin 0.3 (0.0-0.5) mg/dL AST 12 (5-37) U/L ALT 10 (0-40) U/L Alkaline Phosphatase 60 (39-117) U/L Total Protein 6.5 (6.5-8.0) g/dL Albumin 3.7 (3.5-5.0) g/dL TSH (0.32-4.0) uIU/mL Free T4 (0.71-1.85) ng/dL Ethyl Alcohol mg/dL COVID-19 (DEEPA) Negative (Negative) COVID-19 Clin Com See Note 01/29/22 01/29/22 Range/Units 13:08 13:08 WBC (4.8-10.8) X10*3/uL RBC (4.60-5.80) X10*6/uL Hgb (14.0-18.0) g/dl Hct (42.0-52.0) % MCV (80.0-98.0) fL MCH (27.0-33.0) pg MCHC (31.0-36.0) g/dl RDW (11.0-16.0) % Plt Count (160-400) X10*3/uL MPV (9.4-12.4) fL Immature Gran % (Auto) (0.0-0.4) % Neut % (Auto) (45-73) % Lymph % (Auto) (20-40) % [place] % (Auto) (2-11) % Eos % (Auto) (0-4) % Baso % (Auto) (0-2) % Lymph # (Auto) (1.2-4.9) X10*3/uL [place] # (Auto) (0.1-1.2) X10*3/uL Eos # (Auto) (0.0-0.4) X10*3/uL Baso # (Auto) (0.0-0.2) X10*3/uL Abs Immat Gran (auto) (0.00-0.03) X10*3/uL Absolute Neuts (auto) (2.0-8.3) x10*3/uL Absolute Nucleated RBC (0.0-0.012) X10*3/uL Nucleated RBC % (auto) (0.0-0.2) /100WBC Sodium (135-145) mmol/L Potassium (3.3-5.1) mmol/L Chloride (96-108) mmol/L Carbon Dioxide (22-29) mmol/L Anion Gap (12-20) BUN (9-16) mg/dL Creatinine (0.5-1.4) mg/dL Estim Creat Clear Calc Estimated GFR Random Glucose (60-115) mg/dL Calcium (8.4-10.2) mg/dL Magnesium (1.6-2.6) mg/dL Total Bilirubin (0.0-1.0) mg/dL Direct Bilirubin (0.0-0.5) mg/dL AST (5-37) U/L ALT (0-40) U/L Alkaline Phosphatase (39-117) U/L Total Protein (6.5-8.0) g/dL Albumin (3.5-5.0) g/dL TSH 0.04 L (0.32-4.0) uIU/mL Free T4 1.45 (0.71-1.85) ng/dL Ethyl Alcohol < 10 mg/dL COVID-19 (DEEPA) (Negative) COVID-19 Clin Com Critical Care Time Critical Care Time Critical Care Time: No Discharge Plan Discharge Clinical Impression: Delusion, Dementia Patient Disposition: Home, Self-Care Instructions: Dementia (ED) Additional Instructions: Take call of your medication as directed. Take the prescribed antibiotic for possible urinary tract infection. Follow up with your providers as soon as possible. Prescriptions: New cefuroxime axetil 250 mg tablet 250 mg PO BID Qty: 10 0RF No Action tramadol 50 mg tablet 50 mg PO TID PRN (Reason: pain) 15 Days Qty: 45 0RF albuterol sulfate 2.5 mg /3 mL (0.083 %) solution for nebulization 2.5 mg inhalation TID PRN (Reason: Shortness Of Breath) 0RF albuterol sulfate [Ventolin HFA] 90 mcg/actuation Hfa Aerosol Inhaler 2 puff inhalation Q4H PRN (Reason: bronchospasm) Qty: 6.7 0RF dicyclomine 10 mg Capsule 20 mg PO TID PRN (Reason: for pain) 30 Days Qty: 90 0RF atorvastatin 40 mg Tablet 40 mg PO DAILY 30 Days Qty: 30 0RF donepezil 5 mg Tablet 5 mg PO BEDTIME 30 Days Qty: 30 0RF tamsulosin 0.4 mg Capsule 0.4 mg PO DAILY 30 Days Qty: 30 0RF losartan 50 mg Tablet 50 mg PO DAILY 30 Days Qty: 30 0RF Protocol: Hold for SBP< HOLD for SBP < : 90 divalproex 250 mg Tablet,Delayed Release (Dr/Ec) 250 mg PO BID 30 Days Qty: 60 0RF olanzapine 2.5 mg Tablet 2.5 mg PO BEDTIME 30 Days Qty: 30 0RF trazodone 100 mg Tablet 100 mg PO BEDTIME PRN (Reason: Insomnia) 30 Days Qty: 30 0RF pramipexole 0.125 mg Tablet 0.125 mg PO TID 30 Days Qty: 90 0RF ibuprofen 600 mg Tablet 600 mg PO Q6H PRN (Reason: mild-mod pain) 30 Days Qty: 60 0RF trihexyphenidyl 2 mg Tablet 2 mg PO BID 30 Days Qty: 60 0RF potassium chloride 20 mEq tablet,ER particles/crystals 20 meq PO DAILY 30 Days Qty: 30 0RF Rx Instructions: to be taken together with Furosemide in the morning famotidine 20 mg tablet 20 mg PO BID PRN (Reason: abdominal pain) Qty: 30 0RF omeprazole 20 mg capsule,delayed release(DR/EC) 20 mg PO DAILY Qty: 30 3RF levothyroxine 200 mcg tablet 200 mcg PO DAILY Qty: 30 0RF furosemide 20 mg tablet 20 mg PO DAILY 30 Days Qty: 30 0RF fluticasone propionate 50 mcg/actuation [place],Suspension 1 spray intranasal BID 30 Days Qty: 16 0RF finasteride 5 mg tablet 5 mg PO DAILY 30 Days Qty: 30 2RF Invega Sustenna 156 mg/mL syringe 156 mg IM QMONTH Qty: 1 0RF Rx Instructions: Next injection due on 02/05/2022
[2022-01-29 12:46] VITALS: BP 159/64; PULSE 73; RESP 16; TEMP 37; O2SAT 98
[2022-01-29 13:14] LABS: MANUAL DIFF FLAG NO
[2022-01-29 13:17] LABS: Basophils Percent Auto 0.2 % (0-2); Eosinophils Percent Auto 0.7 % (0-4); Hematocrit 40.5 % (42.0-52.0); Hemoglobin 13.1 g/dl (14.0-18.0); Imm Gran Abs Auto 0.01 X10*3/uL (0.00-0.03); Imm Gran Pct Auto 0.2 % (0.0-0.4); Lymphocytes Absolute Auto 0.7 X10*3/uL (1.2-4.9); Lymphocytes Percent Auto 12.6 % (20-40); Mean Corpuscular HGB Conc 32.3 g/dl (31.0-36.0); Mean Corpuscular Hemoglobin 29.8 pg (27.0-33.0); Mean Platelet Volume 9.6 fL (9.4-12.4); Monocytes Absolute Auto 0.6 X10*3/uL (0.1-1.2); Monocytes Percent Auto 9.4 % (2-11); Neutrophils Absolute Auto 4.5 x10*3/uL (2.0-8.3); Neutrophils Percent Auto 76.9 % (45-73); Platelet Count 174 X10*3/uL (160-400); Red Cell Distribution Width 13.2 % (11.0-16.0); White Blood Count 5.9 X10*3/uL (4.8-10.8)
[2022-01-29 13:32] LABS: COVID-19 Test Negative (Negative); IDNOW Serial# 55D5AD1C
[2022-01-29 13:33] LABS: Ethanol < 10 mg/dL
[2022-01-29 13:35] LABS: Alanine Aminotransferase 10 U/L (0-40); Albumin Level 3.7 g/dL (3.5-5.0); Alkaline Phosphatase 60 U/L (39-117); Anion Gap 12 (12-20); Aspartate Amino Transferase 12 U/L (5-37); Bilirubin Direct 0.3 mg/dL (0.0-0.5); Bilirubin Total 0.7 mg/dL (0.0-1.0); Blood Urea Nitrogen 29 mg/dL (9-16); Calcium 9.3 mg/dL (8.4-10.2); Carbon Dioxide 26 mmol/L (22-29); Chloride 108 mmol/L (96-108); Creatinine Clr Calc Pharmacy 73.6; Estimated Glomerular Filt Rate > 60; Glucose Random 91 mg/dL (60-115); Magnesium 2.1 mg/dL (1.6-2.6); Sodium 142 mmol/L (135-145); Total Protein 6.5 g/dL (6.5-8.0)
[2022-01-29 13:58] LABS: TSH reflex Free T4 0.04 uIU/mL (0.32-4.0)
[2022-01-29 14:41] LABS: Free T4 (Free Thyroxine) 1.45 ng/dL (0.71-1.85)
[2022-01-29 15:00] VITALS: BP 147/60; PULSE 74; RESP 18; TEMP 37.2; O2SAT 98
--- NOTE | 2022-01-29 18:14 | MHC.CARE ---
Pt presented to [facility] by [facility] due to driving to Nathalie's house . Pt has a fixed delusion that Nathalie is ex . pt presents with delusions and according to provider some paranoia. Pt has been in behavioral control with his elderly mother. Mother states that pt's visiting nurse is at home waiting for him. He has a visiting nurse as well as someone who comes over and cleans. She also discussed that he calls her multiple times a day and has meals on wheels brought to him. 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 Per Malaika Draper, Dr. Dowling filed out paperwork for pt to require a driving test due to the concern that he is driving and exhibiting these behaviors. Pt is calm and cooperative and requests to go home. Pt is due for his IM injection next week. Pt's mother is comfortable with pt returning home. This case was discussed with commercial pest control representative provider Malaika Draper who states that pt is at baseline and comfortable with him returning home. ED provider Kathy also in agreement.
== END 2022-01-29 19:39 | disposition home or self-care (01) ==
PROVIDERS: Physician Assistant; Emergency Provider Emergency Medicine; PCP Internal Medicine
DX: F03.90 Unspecified dementia, unspecified severity, without behavioral disturbance, psychotic disturbance, mood disturbance, and anxiety (principal); R41.82 Altered mental status, unspecified; F22 Delusional disorders; F31.9 Bipolar disorder, unspecified; Z20.822 Contact with and (suspected) exposure to COVID-19; Z79.899 Other long term (current) drug therapy; Z87.891 Personal history of nicotine dependence
CPT/HCPCS: 36415; 80048; 80076; 82077; 83735; 84439; 84443; 85025; 87635; 93005; 99283

== ENCOUNTER 2022-05-09 15:59 | Emergency (ER) | payer MEDICARE, MEDICAID, SELFPAY ==
--- NOTE | ~2022-05-09 | CT_ITS ---
EXAMINATION: CT HEAD WITHOUT CONTRAST CLINICAL INFORMATION: Mental status change. COMPARISON: 12/20/[address] scan. TECHNIQUE: Contiguous axial imaging was performed from the skull base to vertex without intravenous administration of contrast. Coronal and sagittal reformatted images were obtained. Positioning is suboptimal. This CT examination was performed using dose optimization techniques as appropriate, variously including the following: *Automated exposure control *Adjustment of mA and/or kV according to patient size (this includes techniques or standardized protocols for targeted exams where dose is matched to indication/reason for exam; i.e. extremities or head) *Use of iterative reconstruction technique DLP: 736 mGy-cm FINDINGS: There is mild widening of the cortical sulci and associated ventriculomegaly. The lateral ventricles are symmetrical. The third and fourth ventricles are in their normal midline position. The basilar and prepontine cisterns are unremarkable. There is no acute intra or extracerebral abnormality. There is no mass effect or midline shift. Sections through the bony calvarium are unremarkable. The orbits are intact. The paranasal sinuses are clear. The mastoid air cells are clear. CT/CT head/brain wo con IMPRESSION: No acute intracranial pathology.
--- NOTE | ~2022-05-09 | XR_ITS ---
EXAMINATION: XR CHEST CLINICAL INFORMATION: Change in mental status. COMPARISON: 03/28/2021 chest radiographs. TECHNIQUE: Frontal view of the chest was obtained. FINDINGS: The lungs are clear. There are no pleural effusions. Incidental azygos fissure. The heart and mediastinal structures are unremarkable. XR/XR chest 1V IMPRESSION: No acute cardiopulmonary process.
--- NOTE | 2022-05-09 16:44 | ECG_ITS ---
Test Reason : ALTERED MENTAL STATUS Blood Pressure : / mmHG Vent. Rate : 070 BPM Atrial Rate : 070 BPM P-R Int : 144 ms QRS Dur : 150 ms QT Int : 480 ms P-R-T Axes : 047 011 142 degrees QTc Int : 518 ms Poor data quality Normal sinus rhythm Left bundle branch block Abnormal ECG When compared with ECG of 29-JAN-2022 12:13, No significant change was found Referred By: Tim Norris Electronically Signed By:Phil Espinal
--- NOTE | 2022-05-09 16:52 | ED_ITS ---
HPI - General Adult General Chief complaint: Altered Mental Status Stated complaint: SEC12,CONFUSION, FEVER 100.4,[facility] ON BOARD PER EMS Time Seen by Provider: 05/09/22 16:42 Source: patient, EMS and old records reviewed Mode of arrival: EMS Limitations: altered mental status History of Present Illness HPI narrative: 71 y/o male with history of Parkinsonism, TBI, bipolar 1 disorder with mikey and psychotic features, dementia, hypothyroidism who presents to the ER via EMS after he was pulled over the police and found to have a suspended license, was acting psychotic and erratic therefore, section 12 was filed by the police on the patient and brought to the hospital for further evaluation, patient is limited historian stated that he lives home alone and his Nathalie is moving to live in his house next week. patient stated that he lives home alone independently. decline any recent sickness, no fever, no chills,no CO, no SOB. no abd pain, no N, no vomiting, no diarrhea. Related Data Previous Rx's Medication Instructions Recorded albuterol sulfate 90 mcg/actuation 2 puff inhalation Q4H PRN 01/06/22 aerosol inhaler (Ventolin HFA) bronchospasm #6.7 grams atorvastatin 40 mg tablet 40 mg PO DAILY 30 days #30 tabs 01/06/22 dicyclomine 10 mg capsule 20 mg PO TID PRN for pain 30 days 01/06/22 #90 caps divalproex 250 mg tablet,delayed 250 mg PO BID 30 days #60 tabs 01/06/22 release donepezil 5 mg tablet 5 mg PO BEDTIME 30 days #30 tabs 01/06/22 famotidine 20 mg tablet 20 mg PO BID PRN abdominal pain 01/06/22 #30 tabs finasteride 5 mg tablet 5 mg PO DAILY 30 days #30 tabs 01/06/22 fluticasone propionate 50 1 spray intranasal BID 30 days #16 01/06/22 mcg/actuation nasal grams spray,suspension furosemide 20 mg tablet 20 mg PO DAILY 30 days #30 tabs 01/06/22 ibuprofen 600 mg tablet 600 mg PO Q6H PRN mild-mod pain 30 01/06/22 days #60 tabs losartan 50 mg tablet 50 mg PO DAILY 30 days #30 tabs 01/06/22 olanzapine 2.5 mg tablet 2.5 mg PO BEDTIME 30 days #30 tabs 01/06/22 paliperidone palmitate 156 mg/mL 156 mg IM QMONTH #1 mL 01/06/22 intramuscular syringe (Invega Sustenna) potassium chloride 20 mEq 20 meq PO DAILY 30 days #30 tabs 01/06/22 tablet,extended release(part/cryst) pramipexole 0.125 mg tablet 0.125 mg PO TID 30 days #90 tabs 01/06/22 tamsulosin 0.4 mg capsule 0.4 mg PO DAILY 30 days #30 caps 01/06/22 trazodone 100 mg tablet 100 mg PO BEDTIME PRN Insomnia 30 01/06/22 days #30 tabs trihexyphenidyl 2 mg tablet 2 mg PO BID 30 days #60 tabs 01/06/22 tramadol 50 mg tablet 50 mg PO TID PRN pain 15 days #45 01/14/22 tabs omeprazole 20 mg capsule,delayed 20 mg PO DAILY #30 caps 04/18/22 release levothyroxine 200 mcg tablet 200 mcg PO QAM #90 tabs 05/08/22 Allergies Allergy/AdvReac Type Severity Reaction Status Date / Time lisinopril [LISINOPRIL] Allergy Intermediate RASH Verified 12/20/21 11:56 Review of Systems Review of Systems: All other systems are reviewed and are negative Constitutional: Reports as per HPI and Reports no additional constitutional complaints Eyes: Reports as per HPI and Reports no additional eye complaints Reports system reviewed and no additional complaints, except as documented Cardiovascular: Reports as per HPI and Reports no additional cardiovascular complaints Respiratory: Reports as per HPI and Reports no additional respiratory complaints Gastrointestinal: Reports as per HPI and Reports no additional gastrointestinal complaints Genitourinary: Reports no additional female genitourinary complaints Musculoskeletal: Reports no additional musculoskeletal complaints Skin/Breast: Reports system reviewed and no additional complaints, except as docu Psychiatric: Reports no additional psychiatric complaints Endocrine: Reports no additional endocrine complaints Hematologic/Lymphatic: Reports no additional hematologic/lymphatic complaints Allergic/Immunologic: Reports no additional allergic/immunologic complaints Reports system reviewed and no additional complaints, except as documented and Reports Abnormal speech present [facility] Past Medical History Medical History Abdominal pain, chronic, right lower quadrant Acquired hypothyroidism Allergic rhinitis Anxiety Benign essential hypertension Benign prostatic hyperplasia with urinary obstruction CAD (coronary artery disease) Constipation COPD (chronic obstructive pulmonary disease) Diabetes mellitus GERD (gastroesophageal reflux disease) Insomnia Obesity (BMI 30-39.9) Osteoarthritis Pure hypercholesterolemia Vitamin D deficiency Surgical History History of arthroscopic knee surgery History of cardiac catheterization History of colectomy History of esophagogastroduodenoscopy (EGD) History of excision of pilonidal cyst History of eye surgery History of skin graft Hx of colonoscopy Family History Family History Father Stroke CVD (cerebrovascular disease) Mother Hypertension Social History Social History Household Members: None Housing: Apartment Do you presently have visiting nurse or other home services: Yes (Had [facility]il [facility] ([facility]) and [facility]) Unable to assess alcohol history related to: Refusing to respond Alcohol intake: never Patient Tobacco Use Status: Former Tobacco user Quit Date: long time ago Tobacco use type: Cigarette and Cigar Years Smoked: unknown e-Cigarette/Vaping Use: Never Used Second Hand Smoke Exposure: No Use of substances other than those prescribed or required for medical reasons: No Advance Directives: No Advance Directives Information Provided: Yes service: No Current occupational status: retired Sexual orientation: Straight/Heterosexual Physical Exam ED Vital Signs: Vital Signs - 24 hr 05/09/22 17:01 05/09/22 18:24 Temperature 98.0 F Pulse Rate 62 70 Respiratory Rate 16 20 Blood Pressure 160/71 H 165/90 H Pulse Oximetry 98 97 Oxygen Delivery Method Room Air Room Air BMI result Body Mass Index 29.6 Vital signs have been reviewed as appeared to be correct. Blood pressure normal. Heart rate normal. Respiration rate normal. Temperature normal. Oxygen saturation normal. Appearance: Alert. Oriented X3. No acute distress. Head: Normal external exam. Normocephalic. Atraumatic. No Avalos signs noted. No raccoon eyes noted Eyes: PERRLA. EOMI. Conjunctiva and sclera normal. Eyelids normal. ENT: TM's Normal. Pharynx normal. Uvula midline. Moist mucous membranes. No trismus noted. No drooling noted. No muffled voice noted. Neck: Normal inspection. Neck supple. FROM. No adenopathy. Thyroid Normal. No meningeal signs. No neck mass noted. CVS: Normal heart rate and rhythm. Heart sound normal. No murmurs noted. Pulses normal throughout. Respiratory: No respiratory distress. Painless inspiration. Breath sounds normal. No wheezes/rales/rhonchi noted. Chest nontender. No accessory muscle usage noted or decreased air movement noted. Abdomen: Soft and nontender. Bowel sounds normal in all 4 quadrants. No distention noted. No organomegaly noted. No visible injury noted. Back: No CVA tenderness. Full range of motion noted. Skin: Skin warm and dry. Normal skin color. Normal skin turgor. No rashes/lesions/lacerations noted. Extremities: No lower extremity edema. Extremities exhibit normal range of motion. Extremities nontender. Neuro: Oriented X 3. Cranial nerve exam: II-XII are grossly intact No motor deficit. No sensory deficit. Reflexes normal. Patient Orientation: Person, Place, Time and Situation Level of Consciousness: Awake, Appropriate and Alert Patient Behavior: Appropriate, Guarded, Cooperative and Anxious Mood Description: Constricted, Blunted and Apprehensive Affect Description: Constricted, Blunted and Apprehensive Patient Cognition Impaired: No Ability to Follow Directions: Excellent Speech Pattern: Clear, Appropriate and Spontaneous Speech Memory Description: Intact, Immediate Intact and Short Term Intact Hallucinations: None Delusions: Stated that his ex- is moving into his house and live with him. Thought Process: Intact Thought Content: positive for Intact, positive for Logical, denies Suicidal Ideation and denies Homicidal Ideation. Depressive Symptoms: Not present Judgement: poor Judgement and Insight: poor. Course Reevaluation(s) Reevaluation #1: 71-year-old male came in after found by the police driving with erratic and psychotic behavior patient was Section 12 by the police and brought in to the hospital for further evaluation, stable vital signs, unremarkable labs no source of infection. Physician observation started now for [facility] an evaluation and management as needed. Time: 19:14 Reevaluation #2: Has been evaluated by [facility], Depakote level is subtherapeutic, as [facility] evaluation patient needs to be placed since patient lives home by himself and not compliant with his medication. Time: 22:40 Medical Decision Making Lab Data Lab results reviewed: Yes I reviewed the patient's lab results. Result diagrams: 05/09/22 17:22 05/09/22 17:22 Labs: Lab Results 05/09/22 05/09/22 05/09/22 Range/Units 17:22 17:22 17:22 WBC 6.6 (4.8-10.8) X10*3/uL RBC 5.03 (4.60-5.80) X10*6/uL Hgb 14.2 (14.0-18.0) g/dl Hct 44.2 (42.0-52.0) % MCV 87.9 (80.0-98.0) fL MCH 28.2 (27.0-33.0) pg MCHC 32.1 (31.0-36.0) g/dl RDW 13.1 (11.0-16.0) % Plt Count 228 D (160-400) X10*3/uL MPV 9.4 (9.4-12.4) fL Immature Gran % (Auto) 0.2 (0.0-0.4) % Neut % (Auto) 70.6 (45-73) % Lymph % (Auto) 17.6 L (20-40) % Cass % (Auto) 10.1 (2-11) % Eos % (Auto) 1.2 (0-4) % Baso % (Auto) 0.3 (0-2) % Lymph # (Auto) 1.2 (1.2-4.9) X10*3/uL Cass # (Auto) 0.7 (0.1-1.2) X10*3/uL Eos # (Auto) 0.1 (0.0-0.4) X10*3/uL Baso # (Auto) 0.0 (0.0-0.2) X10*3/uL Abs Immat Gran (auto) 0.01 (0.00-0.03) X10*3/uL Absolute Neuts (auto) 4.7 (2.0-8.3) x10*3/uL Absolute Nucleated RBC 0.000 (0.0-0.012) X10*3/uL Nucleated RBC % (auto) 0.0 (0.0-0.2) /100WBC Sodium 142 (135-145) mmol/L Potassium 4.1 (3.3-5.1) mmol/L Chloride 107 (96-108) mmol/L Carbon Dioxide 28 (22-29) mmol/L Anion Gap 11 L (12-20) BUN 26 H (9-16) mg/dL Creatinine 1.00 (0.5-1.4) mg/dL Estim Creat Clear Calc 74.4 Estimated GFR > 60 Random Glucose 104 (60-115) mg/dL Lactic Acid (0.5-2.0) mmol/L Calcium 9.2 (8.4-10.2) mg/dL Total Bilirubin 0.3 (0.0-1.0) mg/dL Direct Bilirubin < 0.2 (0.0-0.5) mg/dL AST 18 D (5-37) U/L ALT 19 (0-40) U/L Alkaline Phosphatase 68 (39-117) U/L Troponin I High Sens 16.9 (<3.5-35.0) ng/L B-Natriuretic Peptide (<100) pg/mL Total Protein 7.1 (6.5-8.0) g/dL Albumin 4.1 (3.5-5.0) g/dL Lipase 61 (8-78) U/L Urine Color Urine Appearance Urine pH (5.0-8.0) Ur Specific [place] (1.005-1.025) Urine Protein (NEG-TRACE) MG/DL Urine Glucose (UA) (NEG) MG/DL Urine Ketones (NEG) MG/DL Urine Blood (NEG) Urine Nitrite (NEG) Ur Leukocyte Esterase (NEG) Urine RBC (0) /HPF Urine WBC (0-4) /HPF Ur Squamous Epith Cells /LPF Urine Bacteria /LPF Urine Opiates Screen (Not Detect) Urine Fentanyl Screen (Not Detect) Ur Barbiturates Screen (Not Detect) Valproic Acid (50.0-100.0) mcg/mL Ur Phencyclidine Scrn (Not Detect) Ur Amphetamines Screen (Not Detect) U Benzodiazepines Scrn (Not Detect) Urine Cocaine Screen (Not Detect) U Marijuana (THC) Screen (Not Detect) COVID-19 (DEEPA) (Negative) COVID-19 Clin Com 05/09/22 05/09/22 05/09/22 Range/Units 17:22 17:22 18:28 WBC (4.8-10.8) X10*3/uL RBC (4.60-5.80) X10*6/uL Hgb (14.0-18.0) g/dl Hct (42.0-52.0) % MCV (80.0-98.0) fL MCH (27.0-33.0) pg MCHC (31.0-36.0) g/dl RDW (11.0-16.0) % Plt Count (160-400) X10*3/uL MPV (9.4-12.4) fL Immature Gran % (Auto) (0.0-0.4) % Neut % (Auto) (45-73) % Lymph % (Auto) (20-40) % Cass % (Auto) (2-11) % Eos % (Auto) (0-4) % Baso % (Auto) (0-2) % Lymph # (Auto) (1.2-4.9) X10*3/uL Cass # (Auto) (0.1-1.2) X10*3/uL Eos # (Auto) (0.0-0.4) X10*3/uL Baso # (Auto) (0.0-0.2) X10*3/uL Abs Immat Gran (auto) (0.00-0.03) X10*3/uL Absolute Neuts (auto) (2.0-8.3) x10*3/uL Absolute Nucleated RBC (0.0-0.012) X10*3/uL Nucleated RBC % (auto) (0.0-0.2) /100WBC Sodium (135-145) mmol/L Potassium (3.3-5.1) mmol/L Chloride (96-108) mmol/L Carbon Dioxide (22-29) mmol/L Anion Gap (12-20) BUN (9-16) mg/dL Creatinine (0.5-1.4) mg/dL Estim Creat Clear Calc Estimated GFR Random Glucose (60-115) mg/dL Lactic Acid 1.1 (0.5-2.0) mmol/L Calcium (8.4-10.2) mg/dL Total Bilirubin (0.0-1.0) mg/dL Direct Bilirubin (0.0-0.5) mg/dL AST (5-37) U/L ALT (0-40) U/L Alkaline Phosphatase (39-117) U/L Troponin I High Sens (<3.5-35.0) ng/L B-Natriuretic Peptide 146 H (<100) pg/mL Total Protein (6.5-8.0) g/dL Albumin (3.5-5.0) g/dL Lipase (8-78) U/L Urine Color STRAW Urine Appearance CLEAR Urine pH 7.5 (5.0-8.0) Ur Specific [place] 1.015 (1.005-1.025) Urine Protein NEG (NEG-TRACE) MG/DL Urine Glucose (UA) NEG (NEG) MG/DL Urine Ketones NEG (NEG) MG/DL Urine Blood 1+ H (NEG) Urine Nitrite NEG (NEG) Ur Leukocyte Esterase NEG (NEG) Urine RBC 10-14 H (0) /HPF Urine WBC 0 (0-4) /HPF Ur Squamous Epith Cells NONE /LPF Urine Bacteria NONE /LPF Urine Opiates Screen (Not Detect) Urine Fentanyl Screen (Not Detect) Ur Barbiturates Screen (Not Detect) Valproic Acid (50.0-100.0) mcg/mL Ur Phencyclidine Scrn (Not Detect) Ur Amphetamines Screen (Not Detect) U Benzodiazepines Scrn (Not Detect) Urine Cocaine Screen (Not Detect) U Marijuana (THC) Screen (Not Detect) COVID-19 (DEEPA) (Negative) COVID-19 Clin Com 05/09/22 05/09/22 05/09/22 Range/Units 18:28 21:29 21:46 WBC (4.8-10.8) X10*3/uL RBC (4.60-5.80) X10*6/uL Hgb (14.0-18.0) g/dl Hct (42.0-52.0) % MCV (80.0-98.0) fL MCH (27.0-33.0) pg MCHC (31.0-36.0) g/dl RDW (11.0-16.0) % Plt Count (160-400) X10*3/uL MPV (9.4-12.4) fL Immature Gran % (Auto) (0.0-0.4) % Neut % (Auto) (45-73) % Lymph % (Auto) (20-40) % Cass % (Auto) (2-11) % Eos % (Auto) (0-4) % Baso % (Auto) (0-2) % Lymph # (Auto) (1.2-4.9) X10*3/uL Cass # (Auto) (0.1-1.2) X10*3/uL Eos # (Auto) (0.0-0.4) X10*3/uL Baso # (Auto) (0.0-0.2) X10*3/uL Abs Immat Gran (auto) (0.00-0.03) X10*3/uL Absolute Neuts (auto) (2.0-8.3) x10*3/uL Absolute Nucleated RBC (0.0-0.012) X10*3/uL Nucleated RBC % (auto) (0.0-0.2) /100WBC Sodium (135-145) mmol/L Potassium (3.3-5.1) mmol/L Chloride (96-108) mmol/L Carbon Dioxide (22-29) mmol/L Anion Gap (12-20) BUN (9-16) mg/dL Creatinine (0.5-1.4) mg/dL Estim Creat Clear Calc Estimated GFR Random Glucose (60-115) mg/dL Lactic Acid (0.5-2.0) mmol/L Calcium (8.4-10.2) mg/dL Total Bilirubin (0.0-1.0) mg/dL Direct Bilirubin (0.0-0.5) mg/dL AST (5-37) U/L ALT (0-40) U/L Alkaline Phosphatase (39-117) U/L Troponin I High Sens (<3.5-35.0) ng/L B-Natriuretic Peptide (<100) pg/mL Total Protein (6.5-8.0) g/dL Albumin (3.5-5.0) g/dL Lipase (8-78) U/L Urine Color Urine Appearance Urine pH (5.0-8.0) Ur Specific [place] (1.005-1.025) Urine Protein (NEG-TRACE) MG/DL Urine Glucose (UA) (NEG) MG/DL Urine Ketones (NEG) MG/DL Urine Blood (NEG) Urine Nitrite (NEG) Ur Leukocyte Esterase (NEG) Urine RBC (0) /HPF Urine WBC (0-4) /HPF Ur Squamous Epith Cells /LPF Urine Bacteria /LPF Urine Opiates Screen Not Detected (Not Detect) Urine Fentanyl Screen Not Detected (Not Detect) Ur Barbiturates Screen Not Detected (Not Detect) Valproic Acid 4.3 L (50.0-100.0) mcg/mL Ur Phencyclidine Scrn Not Detected (Not Detect) Ur Amphetamines Screen Not Detected (Not Detect) U Benzodiazepines Scrn Not Detected (Not Detect) Urine Cocaine Screen Not Detected (Not Detect) U Marijuana (THC) Screen Not Detected (Not Detect) COVID-19 (DEEPA) Negative (Negative) COVID-19 Clin Com See Note Imaging Data CT scan - head: Attestation: I personally reviewed and interpreted this imaging study as follows: Radiologist's impression: There is mild widening of the cortical sulci and associated ventriculomegaly. The lateral ventricles are symmetrical. The third and fourth ventricles are in their normal midline position. The basilar and prepontine cisterns are unremarkable. There is no acute intra or extracerebral abnormality. There is no mass effect or midline shift. Sections through the bony calvarium are unremarkable. The orbits are intact. The paranasal sinuses are clear. The mastoid air cells are clear. ? Chest x-ray: Attestation: I personally reviewed and interpreted this imaging study as follows: Radiologist's impression: No acute cardiopulmonary process ECG Data Attestation: I personally reviewed and interpreted this ECG as follows: Interpretation: Normal sinus at 70 beats per minute, LBBB, unchanged from previous EKG. Discharge Plan Discharge Clinical Impression: Bipolar 1 disorder, Dementia Patient Disposition: Still a Patient Prescriptions: No Action tramadol 50 mg tablet 50 mg PO TID PRN (Reason: pain) 15 Days Qty: 45 0RF omeprazole 20 mg capsule,delayed release(DR/EC) 20 mg PO DAILY Qty: 30 3RF levothyroxine 200 mcg tablet 200 mcg PO QAM Qty: 90 0RF albuterol sulfate [Ventolin HFA] 90 mcg/actuation Hfa Aerosol Inhaler 2 puff inhalation Q4H PRN (Reason: bronchospasm) Qty: 6.7 0RF dicyclomine 10 mg Capsule 20 mg PO TID PRN (Reason: for pain) 30 Days Qty: 90 0RF atorvastatin 40 mg Tablet 40 mg PO DAILY 30 Days Qty: 30 0RF donepezil 5 mg Tablet 5 mg PO BEDTIME 30 Days Qty: 30 0RF tamsulosin 0.4 mg Capsule 0.4 mg PO DAILY 30 Days Qty: 30 0RF losartan 50 mg Tablet 50 mg PO DAILY 30 Days Qty: 30 0RF Protocol: Hold for SBP< HOLD for SBP < : 90 divalproex 250 mg Tablet,Delayed Release (Dr/Ec) 250 mg PO BID 30 Days Qty: 60 0RF olanzapine 2.5 mg Tablet 2.5 mg PO BEDTIME 30 Days Qty: 30 0RF trazodone 100 mg Tablet 100 mg PO BEDTIME PRN (Reason: Insomnia) 30 Days Qty: 30 0RF pramipexole 0.125 mg Tablet 0.125 mg PO TID 30 Days Qty: 90 0RF ibuprofen 600 mg Tablet 600 mg PO Q6H PRN (Reason: mild-mod pain) 30 Days Qty: 60 0RF trihexyphenidyl 2 mg Tablet 2 mg PO BID 30 Days Qty: 60 0RF potassium chloride 20 mEq tablet,ER particles/crystals 20 meq PO DAILY 30 Days Qty: 30 0RF Rx Instructions: to be taken together with Furosemide in the morning famotidine 20 mg tablet 20 mg PO BID PRN (Reason: abdominal pain) Qty: 30 0RF furosemide 20 mg tablet 20 mg PO DAILY 30 Days Qty: 30 0RF fluticasone propionate 50 mcg/actuation [place],Suspension 1 spray intranasal BID 30 Days Qty: 16 0RF finasteride 5 mg tablet 5 mg PO DAILY 30 Days Qty: 30 2RF Invega Sustenna 156 mg/mL syringe 156 mg IM QMONTH Qty: 1 0RF Rx Instructions: Next injection due on 02/05/2022
[2022-05-09 17:01] VITALS: BP 160/71; BP 186/94; PULSE 62; PULSE 80; RESP 16; TEMP 36.7; O2SAT 98; BMI 29.6
--- NOTE | 2022-05-09 17:04 | PHA.MEDREC ---
Pharmacy Consult ? Medication Reconciliation Pharmacy has completed the medication reconciliation. Patient could not recall his medications, told me he picks up from only [facility]. List was done using recent claims.
--- NOTE | 2022-05-09 17:05 | PC.NURSE ---
Pt resistive to care, when asked to remove clothing to change into hospital attire pt shouting no! . Pt transported to CT scan and now back in room at this time. Tech attempting lab draw
[2022-05-09] MEDS: 0.9 % Sodium Chloride 1,000 ML 999 ML IV (17:30)
[2022-05-09 17:32] LABS: Basophils Percent Auto 0.3 % (0-2); Eosinophils Absolute Auto 0.1 X10*3/uL (0.0-0.4); Eosinophils Percent Auto 1.2 % (0-4); Hematocrit 44.2 % (42.0-52.0); Hemoglobin 14.2 g/dl (14.0-18.0); Imm Gran Abs Auto 0.01 X10*3/uL (0.00-0.03); Imm Gran Pct Auto 0.2 % (0.0-0.4); Lymphocytes Absolute Auto 1.2 X10*3/uL (1.2-4.9); Lymphocytes Percent Auto 17.6 % (20-40); MANUAL DIFF FLAG NO; Mean Corpuscular HGB Conc 32.1 g/dl (31.0-36.0); Mean Corpuscular Hemoglobin 28.2 pg (27.0-33.0); Mean Corpuscular Volume 87.9 fL (80.0-98.0); Mean Platelet Volume 9.4 fL (9.4-12.4); Monocytes Absolute Auto 0.7 X10*3/uL (0.1-1.2); Monocytes Percent Auto 10.1 % (2-11); Neutrophils Absolute Auto 4.7 x10*3/uL (2.0-8.3); Neutrophils Percent Auto 70.6 % (45-73); Platelet Count 228 X10*3/uL (160-400); Red Blood Count 5.03 X10*6/uL (4.60-5.80); Red Cell Distribution Width 13.1 % (11.0-16.0); White Blood Count 6.6 X10*3/uL (4.8-10.8)
[2022-05-09 17:51] LABS: Lactic Acid 1.1 mmol/L (0.5-2.0)
[2022-05-09 17:55] LABS: Alanine Aminotransferase 19 U/L (0-40); Albumin Level 4.1 g/dL (3.5-5.0); Alkaline Phosphatase 68 U/L (39-117); Anion Gap 11 (12-20); Aspartate Amino Transferase 18 U/L (5-37); Bilirubin Direct < 0.2 mg/dL (0.0-0.5); Bilirubin Total 0.3 mg/dL (0.0-1.0); Blood Urea Nitrogen 26 mg/dL (9-16); Calcium 9.2 mg/dL (8.4-10.2); Carbon Dioxide 28 mmol/L (22-29); Chloride 107 mmol/L (96-108); Creatinine Clr Calc Pharmacy 74.4; Estimated Glomerular Filt Rate > 60; Glucose Random 104 mg/dL (60-115); Lipase 61 U/L (8-78); Potassium 4.1 mmol/L (3.3-5.1); Sodium 142 mmol/L (135-145); Total Protein 7.1 g/dL (6.5-8.0)
[2022-05-09 17:57] LABS: Troponin-I High Sensitivity 16.9 ng/L (<3.5-35.0)
[2022-05-09 17:58] LABS: B Type Natriuretic Peptide 146 pg/mL (<100)
[2022-05-09 18:24] VITALS: BP 165/90; PULSE 70; RESP 20; O2SAT 97
[2022-05-09 18:45] LABS: Appearance Urine CLEAR; Color Urine STRAW; Glucose Urine UA NEG (NEG); Leukocyte Esterase Urine NEG (NEG); Nitrite Urine NEG (NEG); PH 7.5 (5.0-8.0); Specific Gravity - Urine 1.015 (1.005-1.025); UACC Culture Trigger NO; Urine Blood 1+ (NEG); Urine Ketones NEG (NEG); Urine Protein NEG (NEG-TRACE)
[2022-05-09 18:52] LABS: Amphetamine Screen Urine Not Detected (Not Detect); Barbiturates, Urine Not Detected (Not Detect); Benzodiazepines Screen Urine Not Detected (Not Detect); Cannabinoid Screen Urine Not Detected (Not Detect); Cocaine Screen Urine Not Detected (Not Detect); Fentanyl, urine Not Detected (Not Detect); Opiate Screen Urine Not Detected (Not Detect); Phencyclidine Screen Urine Not Detected (Not Detect); WBC Urine 0 /HPF (0-4)
[2022-05-09 21:56] LABS: COVID-19 Test Negative (Negative)
[2022-05-09 22:15] LABS: Valproate 4.3 mcg/mL (50.0-100.0)
--- NOTE | 2022-05-09 22:47 | MHC.CARE ---
Pt is a 71 y/o male known to the CARE Team and s1. Pt has a hx of bipolar d/o and dementia. Pt presents today due to police sectioning him as he was observed to be nearby Nathalie's house Pt at baseline has a fixed delusion that he is to a woman named Nathalie who lives in [place]. Pt also currently has a suspended license and should not be driving. Pt has no insight as to why he cannot drive. He states I have good points on my record. I have a legal license . He does not understand that he cannot drive. Pt states he doesn't know where his car is. Pt also reports that Nathalie can pick him up but then also states he just bought a 2021 mustang and he can drive home in it. Pt presents with confusion. Case was discussed with rn liaison psychiatry Hardik Draper NP who also shares concerns that pt is wandering and driving. Pt has also presented similarly 3x. Pt resides alone, has a VNA and support from his elderly mother who does not reside with him. aircraft structural fitter Malaika Draper agrees that pt cannot make safe decisions due to his cognitive impairment and not safe to live independently. At this time pt is cleared psychiatrically, he does not appear to need inpatient at this time. He denies SI/HI and presents with delusional thought process. pt's Depakote level is low, provider aware. Pt will require a safe discharge, therefore case referred to case management. CARE Team and psychiatry available as needed.
[2022-05-10] MEDS: traMADoL HCL 50 MG TABLET PO (00:04)
[2022-05-10] MEDS: Divalproex Sodium 250 MG TABLET.DR PO ×2 (00:05→08:17)
[2022-05-10] MEDS: Donepezil HCl 5 MG TABLET PO (00:05)
[2022-05-10] MEDS: traZODone HCL 100 MG TABLET PO (00:05)
[2022-05-10] MEDS: OLANZapine 2.5 MG TABLET PO (00:05)
[2022-05-10] MEDS: Trihexyphenidyl HCL 2 MG TABLET PO ×2 (01:06→08:17)
[2022-05-10] MEDS: Pramipexole Di-HCL 0.125 MG TABLET PO ×2 (01:06→08:17)
[2022-05-10 01:59] VITALS: BP 165/65; PULSE 102; RESP 17; TEMP 36.3; O2SAT 95
--- NOTE | 2022-05-10 07:06 | PC.NURSE ---
Patient slept intermittently, loud and disruptive at time, behavior unpredictable, medication compliant, care team assessed the patient, referred to case management, vss, will continue to monitor.
--- NOTE | 2022-05-10 07:26 | PC.NURSE ---
patient appears to remain asleep at present respirations are even and unlabored patient appears in no distress
[2022-05-10] MEDS: Omeprazole 20 MG CAPSULE.DR PO (08:17)
[2022-05-10] MEDS: Finasteride 5 MG TABLET PO (08:17)
[2022-05-10] MEDS: Levothyroxine Sodium 200 MCG TABLET PO (08:17)
[2022-05-10] MEDS: Furosemide 20 MG TABLET PO (08:22)
[2022-05-10] MEDS: Tamsulosin HCL 0.4 MG CAPSULE PO (08:22)
[2022-05-10] MEDS: Potassium Chloride ER 20 MEQ TAB.ER.PRT PO (08:23)
[2022-05-10] MEDS: Losartan Potassium 50 MG TABLET PO (08:23)
[2022-05-10] MEDS: Atorvastatin Calcium 40 MG TABLET PO (08:23)
[2022-05-10 08:49] VITALS: BP 156/60; PULSE 70; RESP 18; TEMP 37; O2SAT 94
--- NOTE | 2022-05-10 10:53 | PC.NURSE ---
patients mother in to visit patient (89?).
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
--- NOTE | 2022-05-10 13:22 | PC.NURSE ---
Pt has been sitting in room on bed with mother present since this rn arrival at 11am. warm blankets and coffee provided. has just spoken with Tova from Case Management. Pt is calm.
== END 2022-05-10 14:20 | disposition home or self-care (01) ==
PROVIDERS: Emergency Medicine; Emergency Provider Emergency Medicine; PCP Internal Medicine
DX: F31.9 Bipolar disorder, unspecified (principal); G20 Parkinson's disease; F02.80 Dementia in other diseases classified elsewhere, unspecified severity, without behavioral disturbance, psychotic disturbance, mood disturbance, and anxiety; E11.9 Type 2 diabetes mellitus without complications; I10 Essential (primary) hypertension; E78.00 Pure hypercholesterolemia, unspecified; E66.9 Obesity, unspecified; Z68.29 Body mass index [BMI] 29.0-29.9, adult; Z87.820 Personal history of traumatic brain injury; Z87.891 Personal history of nicotine dependence; Z20.822 Contact with and (suspected) exposure to COVID-19; Z79.899 Other long term (current) drug therapy
CPT/HCPCS: 0241U; 36415; 70450; 71045; 80048; 80076; 80164; 80307; 81001; 83605; 83690; 83880; 84484; 85025; 87040; 87635; 93005; 96360; 96372; 99285

== ENCOUNTER 2022-06-03 10:43 | Emergency (ER) | payer MEDICARE, MEDICAID, SELFPAY ==
--- NOTE | ~2022-06-03 | XR_ITS ---
EXAMINATION: XR CHEST CLINICAL INFORMATION: Shortness of breath, cough, possible pneumonia COMPARISON: Chest radiographs 05/09/2022, 03/28/2021 TECHNIQUE: Portable upright AP view of the chest was obtained. FINDINGS: The lungs are clear. There is no airspace consolidation or groundglass opacity or effusion. The costophrenic sulci are well-defined. The heart is normal in size. The vascularity is normal. 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 The hilar and mediastinal contours and visualized bony structures are similar to prior exams. XR/XR chest 1V IMPRESSION: Lungs clear. No acute intrathoracic disease.
[2022-06-03 11:13] VITALS: BP 188/80; PULSE 62; O2SAT 97
[2022-06-03 11:29] VITALS: BP 150/65; PULSE 97; TEMP 36.6; BMI 29.5
[2022-06-03] MEDS: LORazepam 1 MG TABLET 2 MG PO (11:43)
--- NOTE | 2022-06-03 11:59 | ED_ITS ---
HPI - Male Genitourinary General Chief complaint: Urogenital-Male Stated complaint: urinary retention Time Seen by Provider: 06/03/22 10:58 Source: patient Mode of arrival: EMS Limitations: no limitations History of Present Illness HPI Narrative: 71-year-old male who presents emergency department for evaluation of urinary retention, difficulty urinating and constipation. Patient states that over the past 2 days he has been having difficulty urinating. He states that his urine comes out very slowly and that he feels like he has to urinate again. He denied dysuria. He is also complaining pain in his suprapubic area, he states that it is a constant full/pressure sensation which is 4/10 at its worst. He denied fever, chills, nausea, vomiting, chest pain, shortness of breath. He did tell the nurse that he has prostate issues and that he is also having issues with his , he is depressed but is not suicidal or homicidal at this time. The patient states that he has a cough which is mainly nonproductive. He does have COPD and he is concerned that he might have pneumonia. MD Complaint: other (A difficulty urinating, suprapubic pain) Onset (ago): day(s) (2) Duration: constant Location: abdomen (Suprapubic) Severity scale (1-10): 4 Quality: other (Pressure/fullness) Relieving factors: none Exacerbating factors: none Associated symptoms: Reports urinary retention Related Data Home Medications Medication Instructions Recorded Confirmed tramadol 50 mg tablet 1 tab PO TID PRN Pain (Scale Score 05/09/22 05/09/22 4-6) Previous Rx's Medication Instructions Recorded albuterol sulfate 90 mcg/actuation 2 puff inhalation Q4H PRN 01/06/22 aerosol inhaler (Ventolin HFA) bronchospasm #6.7 grams atorvastatin 40 mg tablet 40 mg PO DAILY 30 days #30 tabs 01/06/22 dicyclomine 10 mg capsule 20 mg PO TID PRN for pain 30 days 01/06/22 #90 caps divalproex 250 mg tablet,delayed 250 mg PO BID 30 days #60 tabs 01/06/22 release donepezil 5 mg tablet 5 mg PO BEDTIME 30 days #30 tabs 01/06/22 famotidine 20 mg tablet 20 mg PO BID PRN abdominal pain 01/06/22 #30 tabs finasteride 5 mg tablet 5 mg PO DAILY 30 days #30 tabs 01/06/22 fluticasone propionate 50 1 spray intranasal BID 30 days #16 01/06/22 mcg/actuation nasal grams spray,suspension furosemide 20 mg tablet 20 mg PO DAILY 30 days #30 tabs 01/06/22 ibuprofen 600 mg tablet 600 mg PO Q6H PRN mild-mod pain 30 01/06/22 days #60 tabs losartan 50 mg tablet 50 mg PO DAILY 30 days #30 tabs 01/06/22 olanzapine 2.5 mg tablet 2.5 mg PO BEDTIME 30 days #30 tabs 01/06/22 paliperidone palmitate 156 mg/mL 156 mg IM QMONTH #1 mL 01/06/22 intramuscular syringe (Invega Sustenna) potassium chloride 20 mEq 20 meq PO DAILY 30 days #30 tabs 01/06/22 tablet,extended release(part/cryst) pramipexole 0.125 mg tablet 0.125 mg PO TID 30 days #90 tabs 01/06/22 tamsulosin 0.4 mg capsule 0.4 mg PO DAILY 30 days #30 caps 01/06/22 trazodone 100 mg tablet 100 mg PO BEDTIME PRN Insomnia 30 01/06/22 days #30 tabs trihexyphenidyl 2 mg tablet 2 mg PO BID 30 days #60 tabs 01/06/22 tramadol 50 mg tablet 50 mg PO TID PRN pain 15 days #45 01/14/22 tabs omeprazole 20 mg capsule,delayed 20 mg PO DAILY #30 caps 04/18/22 release levothyroxine 200 mcg tablet 200 mcg PO QAM #90 tabs 05/08/22 Allergies Allergy/AdvReac Type Severity Reaction Status Date / Time lisinopril [LISINOPRIL] Allergy Intermediate RASH Verified 12/20/21 11:56 Review of Systems Review of Systems: Yes all other systems are reviewed and are negative PMFSH Past Medical History Medical History Abdominal pain, chronic, right lower quadrant Acquired hypothyroidism Allergic rhinitis Anxiety Benign essential hypertension Benign prostatic hyperplasia with urinary obstruction CAD (coronary artery disease) Constipation COPD (chronic obstructive pulmonary disease) Diabetes mellitus GERD (gastroesophageal reflux disease) Insomnia Obesity (BMI 30-39.9) Osteoarthritis Pure hypercholesterolemia Vitamin D deficiency Surgical History History of arthroscopic knee surgery History of cardiac catheterization History of colectomy History of esophagogastroduodenoscopy (EGD) History of excision of pilonidal cyst History of eye surgery History of skin graft Hx of colonoscopy Family History Family History Father Stroke CVD (cerebrovascular disease) Mother Hypertension Social History Social History Household Members: None Housing: Apartment Do you presently have visiting nurse or other home services: Yes (Had [facility] ([facility]) and [facility]) Unable to assess alcohol history related to: Refusing to respond Alcohol intake: never Patient Tobacco Use Status: Never used Tobacco Tobacco use type: Cigarette and Cigar Years Smoked: unknown e-Cigarette/Vaping Use: Never Used Second Hand Smoke Exposure: No Use of substances other than those prescribed or required for medical reasons: No Advance Directives: No Advance Directives Information Provided: Yes service: No Current occupational status: retired Sexual orientation: Straight/Heterosexual Physical Exam Vital Signs: Vital Signs: Last Vital Signs Temp 98.2 F 06/03/22 12:21 Pulse 48 L 06/03/22 12:21 Resp 13 06/03/22 12:21 BP 167/68 H 06/03/22 12:21 Pulse Ox 98 06/03/22 12:21 O2 Del Method 06/03/22 12:21 BMI result Body Mass Index 29.5 Const: General: cooperative and no acute distress Orientation/consciousness: oriented to person and oriented to place Limitations: no limitations HEENT: Head: Yes normal to inspection, Yes normocephalic and Yes atraumatic Ears: external ears normal General nose exam: Normal external nose present Face and sinus: Yes normal facial exam Mouth: Normal oral and palatal mucosa present Throat: Yes posterior oropharynx normal Eyes: General: appearance normal, both eyes and all related structures Pupils: Equal, round and reactive pupils present Neck: Neck: Yes normal visual inspection, Yes no lymphadenopathy, Yes trachea midline and Yes supple Chest: Chest palpation & inspection: normal inspection of the chest and normal palpation of entire chest wall Resp: Effort & Inspection: normal respiratory effort and able to speak in complete sentences Auscultation: clear to auscultation bilaterally Cardio: Rate: regular rate Rhythm: regular rhythm Heart sounds: S1 normal heart sound present, S2 normal heart sound present and no murmurs GI: Inspection: Yes normal to inspection Palpation (GI): Soft to palpation, Tenderness to palpation present (GI) (Moderate suprapubic tenderness) and no guarding Auscultation: normal bowel sounds : General: Yes no CVA tenderness Back/Spine/Pelvis: Back: no CVA tenderness Skin: General skin exam: no rashes or lesions noted Neuro: General: oriented to person and oriented to place Cranial nerves: Yes CN's II-XII intact bilaterally and Yes Equal, round and reactive pupils present Cognition (Neuro): normal cognition Motor exam (neuro): 5/5 motor strength present throughout Extrem: General: Yes normal to inspection Psych: Appearance: grossly normal Speech and movement: Normal speech and movement present Affect: normal affect Attitude: cooperative Thought process: Normal thought process present Thought content: Normal thought content present Course Course Course Narrative: 71-year-old male who presents emergency department for evaluation of 2 days of decreased ability urinate with frequency and urgency but no dysuria. He is also having suprapubic abdominal pain/fullness. Patient does state that he has pr ostate issues and he does take tamsulosin. Differential includes was not limited to acute kidney injury, urinary retention, urinary tract infection. I did order to include CBC, CMP, lipase, urinalysis. Patient was ordered to get IV normal saline x1 L. bladder scan will be obtained and Renteria catheter will be placed. Patient does appear to be very anxious and he was ordered to get Ativan 2 mg orally. 1340: Laboratory evaluation: CBC, CMP, lipase, were normal. Urinalysis revealed 1+ blood, positive protein. Microscopic field 10 RBCs, 5 WBCs, no bacteria. Bladder scan was nondiagnostic. The Renteria catheter was placed the patient had 600 cc of yellow urine removed from his bladder. Chest x-ray: COPD changes, no acute findings on my review of this film. The patient's mother here in the emergency department. She she states that he has bipolar disorder and anxiety and she is concerned that he may not be taking his medications appropriately. Patient did tell me that he has not been taking his tamsulosin. I advised restart this medication. Patient's presentation is consistent with urinary retention secondary to prostate enlargement. Patient will be sent home with the Renteria catheter in place and he will need to follow-up with our urologist for re-evaluation. MDM - Male Genitourinary Lab Data Result diagrams: 06/03/22 12:11 06/03/22 12:11 Labs: Lab Results 06/03/22 06/03/22 06/03/22 Range/Units 12:11 12:11 12:11 WBC 5.0 (4.8-10.8) X10*3/uL RBC 5.14 (4.60-5.80) X10*6/uL Hgb 14.8 (14.0-18.0) g/dl Hct 45.3 (42.0-52.0) % MCV 88.1 (80.0-98.0) fL MCH 28.8 (27.0-33.0) pg MCHC 32.7 (31.0-36.0) g/dl RDW 13.7 (11.0-16.0) % Plt Count 180 (160-400) X10*3/uL MPV 9.4 (9.4-12.4) fL Immature Gran % (Auto) 0.2 (0.0-0.4) % Neut % (Auto) 62.5 (45-73) % Lymph % (Auto) 25.0 (20-40) % [place] % (Auto) 10.5 (2-11) % Eos % (Auto) 1.4 (0-4) % Baso % (Auto) 0.4 (0-2) % Lymph # (Auto) 1.2 (1.2-4.9) X10*3/uL [place] # (Auto) 0.5 (0.1-1.2) X10*3/uL Eos # (Auto) 0.1 (0.0-0.4) X10*3/uL Baso # (Auto) 0.0 (0.0-0.2) X10*3/uL Abs Immat Gran (auto) 0.01 (0.00-0.03) X10*3/uL Absolute Neuts (auto) 3.1 (2.0-8.3) x10*3/uL Absolute Nucleated RBC 0.000 (0.0-0.012) X10*3/uL Nucleated RBC % (auto) 0.0 (0.0-0.2) /100WBC Sodium 142 (135-145) mmol/L Potassium 3.7 (3.3-5.1) mmol/L Chloride 104 (96-108) mmol/L Carbon Dioxide 28 (22-29) mmol/L Anion Gap 14 (12-20) BUN 17 H (9-16) mg/dL Creatinine 0.92 (0.5-1.4) mg/dL Estim Creat Clear Calc 80.7 Estimated GFR > 60 Random Glucose 107 (60-115) mg/dL Calcium 8.8 (8.4-10.2) mg/dL Total Bilirubin 0.8 (0.0-1.0) mg/dL AST 14 (5-37) U/L ALT 10 (0-40) U/L Alkaline Phosphatase 70 (39-117) U/L Troponin I High Sens (<3.5-35.0) ng/L Total Protein 6.7 (6.5-8.0) g/dL Albumin 3.9 (3.5-5.0) g/dL Lipase 38 (8-78) U/L Urine Color Yellow Urine Appearance Clear Urine pH 7.0 (5.0-8.0) Ur Specific [place] 1.015 (1.005-1.025) Urine Protein 100 (2+) H (Neg-Trace) mg/dL Urine Glucose (UA) Negative (Negative) mg/dL Urine Ketones Trace (Negative) mg/dL Urine Blood Small (1+) H (Negative) Urine Nitrite Negative (Negative) Ur Leukocyte Esterase Negative (Negative) Urine RBC 6-10 H (0-2) /HPF Urine WBC 0-5 (0-5) /HPF Ur Squamous Epith Cells 0-2 /HPF Urine Bacteria None Seen (None Seen) Hyaline Casts 0-2 /LPF 06/03/22 Range/Units 12:11 WBC (4.8-10.8) X10*3/uL RBC (4.60-5.80) X10*6/uL Hgb (14.0-18.0) g/dl Hct (42.0-52.0) % MCV (80.0-98.0) fL MCH (27.0-33.0) pg MCHC (31.0-36.0) g/dl RDW (11.0-16.0) % Plt Count (160-400) X10*3/uL MPV (9.4-12.4) fL Immature Gran % (Auto) (0.0-0.4) % Neut % (Auto) (45-73) % Lymph % (Auto) (20-40) % [place] % (Auto) (2-11) % Eos % (Auto) (0-4) % Baso % (Auto) (0-2) % Lymph # (Auto) (1.2-4.9) X10*3/uL [place] # (Auto) (0.1-1.2) X10*3/uL Eos # (Auto) (0.0-0.4) X10*3/uL Baso # (Auto) (0.0-0.2) X10*3/uL Abs Immat Gran (auto) (0.00-0.03) X10*3/uL Absolute Neuts (auto) (2.0-8.3) x10*3/uL Absolute Nucleated RBC (0.0-0.012) X10*3/uL Nucleated RBC % (auto) (0.0-0.2) /100WBC Sodium (135-145) mmol/L Potassium (3.3-5.1) mmol/L Chloride (96-108) mmol/L Carbon Dioxide (22-29) mmol/L Anion Gap (12-20) BUN (9-16) mg/dL Creatinine (0.5-1.4) mg/dL Estim Creat Clear Calc Estimated GFR Random Glucose (60-115) mg/dL Calcium (8.4-10.2) mg/dL Total Bilirubin (0.0-1.0) mg/dL AST (5-37) U/L ALT (0-40) U/L Alkaline Phosphatase (39-117) U/L Troponin I High Sens 12.2 (<3.5-35.0) ng/L Total Protein (6.5-8.0) g/dL Albumin (3.5-5.0) g/dL Lipase (8-78) U/L Urine Color Urine Appearance Urine pH (5.0-8.0) Ur Specific [place] (1.005-1.025) Urine Protein (Neg-Trace) mg/dL Urine Glucose (UA) (Negative) mg/dL Urine Ketones (Negative) mg/dL Urine Blood (Negative) Urine Nitrite (Negative) Ur Leukocyte Esterase (Negative) Urine RBC (0-2) /HPF Urine WBC (0-5) /HPF Ur Squamous Epith Cells /HPF Urine Bacteria (None Seen) Hyaline Casts /LPF Discharge Plan Discharge Clinical Impression: Acute urinary retention, Cough Patient Disposition: Home, Self-Care Instructions: Urinary Retention in Men (ED), Renteria Catheter Placement and Care (ED) Additional Instructions: Your blood work was unremarkable. Your urinalysis was normal with no evidence for a urinary tract infection/bladder infection. You had 600 mL of urine in your bladder. This is most likely caused by enlarged prostate. You need to restart your Flomax (tamsulosin) since stopping this medication may have caused your prostate to be enlarged making it difficult your to urinate. Follow the Renteria catheter instructions Follow-up with our urologist, Dr. Rivera Benitez in 4-7 days. For re- evaluation and possible removal of the Renteria catheter. Please return to the emergency department if your symptoms get worse or if you develop any symptoms that are concerning to you. Prescriptions: No Action tramadol 50 mg tablet 50 mg PO TID PRN (Reason: pain) 15 Days Qty: 45 0RF omeprazole 20 mg capsule,delayed release(DR/EC) 20 mg PO DAILY Qty: 30 3RF levothyroxine 200 mcg tablet 200 mcg PO QAM Qty: 90 0RF albuterol sulfate [Ventolin HFA] 90 mcg/actuation Hfa Aerosol Inhaler 2 puff inhalation Q4H PRN (Reason: bronchospasm) Qty: 6.7 0RF dicyclomine 10 mg Capsule 20 mg PO TID PRN (Reason: for pain) 30 Days Qty: 90 0RF atorvastatin 40 mg Tablet 40 mg PO DAILY 30 Days Qty: 30 0RF donepezil 5 mg Tablet 5 mg PO BEDTIME 30 Days Qty: 30 0RF tamsulosin 0.4 mg Capsule 0.4 mg PO DAILY 30 Days Qty: 30 0RF losartan 50 mg Tablet 50 mg PO DAILY 30 Days Qty: 30 0RF Protocol: Hold for SBP< HOLD for SBP < : 90 divalproex 250 mg Tablet,Delayed Release (Dr/Ec) 250 mg PO BID 30 Days Qty: 60 0RF olanzapine 2.5 mg Tablet 2.5 mg PO BEDTIME 30 Days Qty: 30 0RF trazodone 100 mg Tablet 100 mg PO BEDTIME PRN (Reason: Insomnia) 30 Days Qty: 30 0RF pramipexole 0.125 mg Tablet 0.125 mg PO TID 30 Days Qty: 90 0RF ibuprofen 600 mg Tablet 600 mg PO Q6H PRN (Reason: mild-mod pain) 30 Days Qty: 60 0RF trihexyphenidyl 2 mg Tablet 2 mg PO BID 30 Days Qty: 60 0RF potassium chloride 20 mEq tablet,ER particles/crystals 20 meq PO DAILY 30 Days Qty: 30 0RF Rx Instructions: to be taken together with Furosemide in the morning famotidine 20 mg tablet 20 mg PO BID PRN (Reason: abdominal pain) Qty: 30 0RF furosemide 20 mg tablet 20 mg PO DAILY 30 Days Qty: 30 0RF fluticasone propionate 50 mcg/actuation [place],Suspension 1 spray intranasal BID 30 Days Qty: 16 0RF finasteride 5 mg tablet 5 mg PO DAILY 30 Days Qty: 30 2RF Invega Sustenna 156 mg/mL syringe 156 mg IM QMONTH Qty: 1 0RF Rx Instructions: Next injection due on 02/05/2022 tramadol 50 mg tablet 1 tab PO TID PRN (Reason: Pain (Scale Score 4-6)) Referrals: Rivera Benitez MD [Physician] - 1 week (Urinary retention, patient noncompliant with tamsulosin, 600 cc of urine in his bladder after Renteria placement, labs and urinalysis unremarkable. He is follow-up for urinary retention/Renteria management/removal)
[2022-06-03 12:18] LABS: MANUAL DIFF FLAG NO
[2022-06-03 12:21] VITALS: BP 167/68; PULSE 48; RESP 13; TEMP 36.8; O2SAT 98
[2022-06-03 12:22] LABS: Appearance Urine Clear; Basophils Percent Auto 0.4 % (0-2); Color Urine Yellow; Eosinophils Absolute Auto 0.1 X10*3/uL (0.0-0.4); Eosinophils Percent Auto 1.4 % (0-4); Glucose Urine UA Negative (Negative); Hematocrit 45.3 % (42.0-52.0); Hemoglobin 14.8 g/dl (14.0-18.0); Imm Gran Abs Auto 0.01 X10*3/uL (0.00-0.03); Imm Gran Pct Auto 0.2 % (0.0-0.4); Leukocyte Esterase Urine Negative (Negative); Lymphocytes Absolute Auto 1.2 X10*3/uL (1.2-4.9); Mean Corpuscular HGB Conc 32.7 g/dl (31.0-36.0); Mean Corpuscular Hemoglobin 28.8 pg (27.0-33.0); Mean Corpuscular Volume 88.1 fL (80.0-98.0); Mean Platelet Volume 9.4 fL (9.4-12.4); Monocytes Absolute Auto 0.5 X10*3/uL (0.1-1.2); Monocytes Percent Auto 10.5 % (2-11); Neutrophils Absolute Auto 3.1 x10*3/uL (2.0-8.3); Neutrophils Percent Auto 62.5 % (45-73); Nitrite Urine Negative (Negative); Platelet Count 180 X10*3/uL (160-400); Red Blood Count 5.14 X10*6/uL (4.60-5.80); Red Cell Distribution Width 13.7 % (11.0-16.0); Specific Gravity - Urine 1.015 (1.005-1.025); Urine Blood Small (1+) (Negative); Urine Ketones Trace mg/dL (Negative); Urine Protein 100 (2+) mg/dL (Neg-Trace)
[2022-06-03 12:26] LABS: Bacteria Urine None Seen (None Seen); Hyaline Casts Urine 0-2 /LPF; Squamous Epithelial Cell Urine 0-2 /HPF; WBC Urine 0-5 /HPF (0-5)
--- NOTE | 2022-06-03 12:33 | ECG_ITS ---
Test Reason : bradycardia Blood Pressure : / mmHG Vent. Rate : 216 BPM Atrial Rate : 258 BPM P-R Int : 000 ms QRS Dur : 128 ms QT Int : 232 ms P-R-T Axes : 000 070 191 degrees QTc Int : 440 ms Undetermined rhythm Left bundle branch block Cannot rule out Anterior infarct , age undetermined T wave abnormality, consider inferolateral ischemia Abnormal ECG When compared with ECG of 09-MAY-2022 18:07, Current undetermined rhythm precludes rhythm comparison, needs review Minimal criteria for Anterior infarct are now Present Referred By: Landry Rogers Electronically Signed By:JOSE LUIS MAYO
[2022-06-03] MEDS: 0.9 % Sodium Chloride 1,000 ML 999 ML IV (12:34)
[2022-06-03 12:50] LABS: Alanine Aminotransferase 10 U/L (0-40); Albumin Level 3.9 g/dL (3.5-5.0); Alkaline Phosphatase 70 U/L (39-117); Anion Gap 14 (12-20); Aspartate Amino Transferase 14 U/L (5-37); Bilirubin Total 0.8 mg/dL (0.0-1.0); Blood Urea Nitrogen 17 mg/dL (9-16); Calcium 8.8 mg/dL (8.4-10.2); Carbon Dioxide 28 mmol/L (22-29); Chloride 104 mmol/L (96-108); Creatinine Clr Calc Pharmacy 80.7; Estimated Glomerular Filt Rate > 60; Glucose Random 107 mg/dL (60-115); Lipase 38 U/L (8-78); Potassium 3.7 mmol/L (3.3-5.1); Sodium 142 mmol/L (135-145); Total Protein 6.7 g/dL (6.5-8.0)
[2022-06-03 13:27] LABS: Troponin-I High Sensitivity 12.2 ng/L (<3.5-35.0)
[2022-06-03 14:10] VITALS: BP 160/64; PULSE 52; RESP 17; TEMP 36.5; O2SAT 98
--- NOTE | 2022-06-03 14:58 | PC.NURSE ---
MINDY WILL SEE ABOUT SETTING UP [facility] FOR [facility] AT HOME
--- NOTE | 2022-06-03 15:59 | MHC.CM.PN ---
PATIENT IS DC HOME WITH NEW [facility] PATIENT IS AWARE THAT [facility] WILL CALL TO WORK OUT A TIME THAT IS BEST FOR PATIENT. MOTHER IN ROOM) IS AWARE OF PLAN
== END 2022-06-03 16:22 | disposition home or self-care (01) ==
PROVIDERS: Emergency Provider Emergency Medicine Emergency Medical Services; PCP Internal Medicine
DX: R33.9 Retention of urine, unspecified (principal); R00.1 Bradycardia, unspecified; R05.9 Cough, unspecified; Z79.899 Other long term (current) drug therapy
CPT/HCPCS: 36415; 51798; 71045; 80053; 81001; 83690; 84484; 85025; 93005; 99284; 99285

== ENCOUNTER 2022-06-04 09:53 | Emergency (ER) | payer MEDICARE, MEDICAID, SELFPAY ==
[2022-06-04 09:59] VITALS: BP 142/90; PULSE 67; O2SAT 98
[2022-06-04 10:03] VITALS: BP 163/64; PULSE 61; RESP 16; TEMP 36.4; O2SAT 98; BMI 29.5
--- NOTE | 2022-06-04 10:03 | ED.GENADULT ---
HPI - General Adult General Chief complaint: Urogenital-Male Stated complaint: PAIN AROUND AMBRIZ CATH Time Seen by Provider: 06/04/22 10:03 Source: patient and EMS Mode of arrival: EMS Limitations: no limitations History of Present Illness HPI narrative: Patient is a 71 year old male presenting to the emergency department today requesting to have his catheter removed. Patient states that he had a Ambriz catheter placed in the emergency department yesterday and he now wants it removed. Patient denies any dizziness, lightheadedness, abdominal pain, nausea, vomiting, fever, chills, blurry vision, double vision, loss of vision, chest pain, difficulty breathing, shortness of breath, back pain, night sweats, syncope or a near syncopal episode, recent trauma or falls, bowel incontinence, bladder incontinence, bowel retention, bladder retention, or any other complaints at this time. Onset (ago): day(s) (1) Severity: mild Severity scale (1-10): 1 Relieving factors: none Exacerbating factors: none Associated symptoms: denies other symptoms Treatments prior to arrival: none Related Data Home Medications Medication Instructions Recorded Confirmed tramadol 50 mg tablet 1 tab PO TID PRN Pain (Scale Score 05/09/22 05/09/22 4-6) Previous Rx's Medication Instructions Recorded albuterol sulfate 90 mcg/actuation 2 puff inhalation Q4H PRN 01/06/22 aerosol inhaler (Ventolin HFA) bronchospasm #6.7 grams atorvastatin 40 mg tablet 40 mg PO DAILY 30 days #30 tabs 01/06/22 dicyclomine 10 mg capsule 20 mg PO TID PRN for pain 30 days 01/06/22 #90 caps divalproex 250 mg tablet,delayed 250 mg PO BID 30 days #60 tabs 01/06/22 release donepezil 5 mg tablet 5 mg PO BEDTIME 30 days #30 tabs 01/06/22 famotidine 20 mg tablet 20 mg PO BID PRN abdominal pain 01/06/22 #30 tabs finasteride 5 mg tablet 5 mg PO DAILY 30 days #30 tabs 01/06/22 fluticasone propionate 50 1 spray intranasal BID 30 days #16 01/06/22 mcg/actuation nasal grams spray,suspension furosemide 20 mg tablet 20 mg PO DAILY 30 days #30 tabs 01/06/22 ibuprofen 600 mg tablet 600 mg PO Q6H PRN mild-mod pain 30 01/06/22 days #60 tabs losartan 50 mg tablet 50 mg PO DAILY 30 days #30 tabs 01/06/22 olanzapine 2.5 mg tablet 2.5 mg PO BEDTIME 30 days #30 tabs 01/06/22 paliperidone palmitate 156 mg/mL 156 mg IM QMONTH #1 mL 01/06/22 intramuscular syringe (Invega Sustenna) potassium chloride 20 mEq 20 meq PO DAILY 30 days #30 tabs 01/06/22 tablet,extended release(part/cryst) pramipexole 0.125 mg tablet 0.125 mg PO TID 30 days #90 tabs 01/06/22 tamsulosin 0.4 mg capsule 0.4 mg PO DAILY 30 days #30 caps 01/06/22 trazodone 100 mg tablet 100 mg PO BEDTIME PRN Insomnia 30 01/06/22 days #30 tabs trihexyphenidyl 2 mg tablet 2 mg PO BID 30 days #60 tabs 01/06/22 tramadol 50 mg tablet 50 mg PO TID PRN pain 15 days #45 01/14/22 tabs omeprazole 20 mg capsule,delayed 20 mg PO DAILY #30 caps 04/18/22 release levothyroxine 200 mcg tablet 200 mcg PO QAM #90 tabs 05/08/22 Allergies Allergy/AdvReac Type Severity Reaction Status Date / Time lisinopril [LISINOPRIL] Allergy Intermediate RASH Verified 12/20/21 11:56 Review of Systems Constitutional: Constitutional: Reports no additional constitutional complaints, Denies chills, Denies fever(s) and Denies night sweats Eyes: Eyes: Reports no additional eye complaints, Denies blurry vision, Denies change in vision, Denies diplopia, Denies eye discharge, Denies loss of vision and Denies eye pain ENT: Denies dizziness Cardiovascular: Cardiovascular: Reports no additional cardiovascular complaints, Denies chest pain, Denies lightheadedness, Denies Loss of Consciousness and Denies dyspnea Respiratory: Respiratory: Reports no additional respiratory complaints and Denies dyspnea Gastrointestinal: Gastrointestinal: Reports no additional gastrointestinal complaints, Denies abdominal pain, Denies melena, Denies hematochezia, Denies change in bowel habits and Denies change in stool character Genitourinary: Genitourinary: Reports no additional male genitourinary complaints Comments: ambriz catheter in place Musculoskeletal: Musculoskeletal: Reports no additional musculoskeletal complaints, Denies numbness and Denies tingling Neurologic: Denies dizziness, Denies loss of vision, Denies numbness and Denies tingling Psychiatric: Psychiatric: Reports no additional psychiatric complaints Endocrine: Endocrine: Reports no additional endocrine complaints Hematologic/Lymphatic: Hematologic/Lymphatic: Reports no additional hematologic/lymphatic complaints Allergic/Immunologic: Allergic/Immunologic: Reports no additional allergic/immunologic complaints [facility] Past Medical History Attestation statement: The following information was validated with the patient. Source: old records reviewed Medical History Abdominal pain, chronic, right lower quadrant Acquired hypothyroidism Allergic rhinitis Anxiety Benign essential hypertension Benign prostatic hyperplasia with urinary obstruction CAD (coronary artery disease) Constipation COPD (chronic obstructive pulmonary disease) Diabetes mellitus GERD (gastroesophageal reflux disease) Insomnia Obesity (BMI 30-39.9) Osteoarthritis Pure hypercholesterolemia Vitamin D deficiency Surgical History History of arthroscopic knee surgery History of cardiac catheterization History of colectomy History of esophagogastroduodenoscopy (EGD) History of excision of pilonidal cyst History of eye surgery History of skin graft Hx of colonoscopy Family History Family History Father Stroke CVD (cerebrovascular disease) Mother Hypertension Social History Social History Household Members: None Housing: Apartment Do you presently have visiting nurse or other home services: Yes (Had [facility] and [facility]) Unable to assess alcohol history related to: Refusing to respond Alcohol intake: never Patient Tobacco Use Status: Never used Tobacco Tobacco use type: Cigarette and Cigar Years Smoked: unknown e-Cigarette/Vaping Use: Never Used Second Hand Smoke Exposure: No Advance Directives: No Advance Directives Information Provided: Yes service: No Current occupational status: retired Sexual orientation: Straight/Heterosexual Physical Exam ED Vital Signs: Vital Signs - 24 hr 06/04/22 10:03 06/04/22 10:19 Temperature 97.6 F Pulse Rate 61 54 Respiratory Rate 16 18 Blood Pressure 163/64 H 164/103 H Pulse Oximetry 98 96 Oxygen Delivery Method Room Air Room Air BMI result Body Mass Index 29.5 Const General: cooperative, no acute distress, alert and awake Nutritional Appearance: well nourished Orientation/consciousness: patient oriented x3 Limitations: no limitations HENMT Head: Yes normal to inspection and Yes atraumatic Ears: hearing grossly normal bilaterally and external ears normal General nose exam: Normal external nose present, no nasal discharge noted and no epistaxis Face and sinus: Yes normal facial exam, No abrasion and No laceration Mouth: Normal oral and palatal mucosa present, no drooling and no muffled voice Eyes General: appearance normal, both eyes and all related structures Periorbital: periorbital findings normal Eyelids: Yes eyelids normal Conjunctivae: conjunctivae normal Pupils: Equal, round and reactive pupils present EOM: EOMs intact bilaterally Neck Neck: Yes normal visual inspection, Yes full ROM and Yes no lymphadenopathy Chest Chest palpation & inspection: normal inspection of the chest Resp Effort & Inspection: normal respiratory effort and able to speak in complete sentences Auscultation: clear to auscultation bilaterally Cardio Rate: regular rate Rhythm: regular rhythm GI Inspection: Yes normal to inspection Other: ambriz catheter in place Neuro General: patient oriented x3 and moves all extremities Cranial nerves: Yes Equal, round and reactive pupils present Cognition (Neuro): normal cognition Motor exam (neuro): 5/5 motor strength present throughout Sensory Exam: Normal double simultaneous stimulation for sensation Coordination: [id number] test normal Extrem General: Yes normal to inspection, Yes full ROM and Yes capillary refill normal Psych Appearance: grossly normal Mental Status: mental status grossly normal Affect: normal affect Attitude: cooperative Thought process: Normal thought process present Thought content: Normal thought content present Insight: Good insight present (Psych) Medical Decision Making MDM Narrative Medical decision making narrative: Patient is a 71 year old male presenting to the emergency department today requesting to have his Ambriz catheter removed. Patient's physical exam showed a Ambriz catheter present but was otherwise unremarkable. I explained my physical exam findings to the patient. I answered all questions asked by the patient. I explained to the patient that it was originally placed for his urinary retention and that removing it before he has seen the urologist may mean he develops the retention again and needs to have the catheter placed again. Patient verbalized understanding and stated that he wants it removed anyway. Patient's catheter was removed, without incident. I stressed the importance of the patient taking his medication as prescribed. I stressed the importance of the patient following up with his primary care provider and a urologist. I stressed the importance of the patient returning to the emergency department immediately if he were to develop any urinary retention, dizziness, shortness of breath, difficulty breathing, chest pain, blurry vision, loss of vision, nausea, vomiting, abdominal pain, fever, chills, back pain, or any other complaints. Patient verbalized agreement and understanding with this treatment plan and discharge. Differential Diagnosis Differential Diagnosis: history of urinary retention, ambriz catheter removal Medical Records Medical records reviewed: Yes I reviewed the patient's medical records. Discharge Plan Discharge Clinical Impression: Encounter for Ambriz catheter removal Patient Disposition: Home, Self-Care Instructions: Ambriz Catheter Removal (DC) Additional Instructions: Follow up with your primary care provider and a urologist. Return to the emergency department immediately if your symptoms worsen or if you develop any dizziness, shortness of breath, difficulty breathing, chest pain, blurry vision, loss of vision, nausea, vomiting, abdominal pain, fever, chills, back pain, or any other complaints. Prescriptions: No Action tramadol 50 mg tablet 50 mg PO TID PRN (Reason: pain) 15 Days Qty: 45 0RF omeprazole 20 mg capsule,delayed release(DR/EC) 20 mg PO DAILY Qty: 30 3RF levothyroxine 200 mcg tablet 200 mcg PO QAM Qty: 90 0RF albuterol sulfate [Ventolin HFA] 90 mcg/actuation Hfa Aerosol Inhaler 2 puff inhalation Q4H PRN (Reason: bronchospasm) Qty: 6.7 0RF dicyclomine 10 mg Capsule 20 mg PO TID PRN (Reason: for pain) 30 Days Qty: 90 0RF atorvastatin 40 mg Tablet 40 mg PO DAILY 30 Days Qty: 30 0RF donepezil 5 mg Tablet 5 mg PO BEDTIME 30 Days Qty: 30 0RF tamsulosin 0.4 mg Capsule 0.4 mg PO DAILY 30 Days Qty: 30 0RF losartan 50 mg Tablet 50 mg PO DAILY 30 Days Qty: 30 0RF Protocol: Hold for SBP< HOLD for SBP < : 90 divalproex 250 mg Tablet,Delayed Release (Dr/Ec) 250 mg PO BID 30 Days Qty: 60 0RF olanzapine 2.5 mg Tablet 2.5 mg PO BEDTIME 30 Days Qty: 30 0RF trazodone 100 mg Tablet 100 mg PO BEDTIME PRN (Reason: Insomnia) 30 Days Qty: 30 0RF pramipexole 0.125 mg Tablet 0.125 mg PO TID 30 Days Qty: 90 0RF ibuprofen 600 mg Tablet 600 mg PO Q6H PRN (Reason: mild-mod pain) 30 Days Qty: 60 0RF trihexyphenidyl 2 mg Tablet 2 mg PO BID 30 Days Qty: 60 0RF potassium chloride 20 mEq tablet,ER particles/crystals 20 meq PO DAILY 30 Days Qty: 30 0RF Rx Instructions: to be taken together with Furosemide in the morning famotidine 20 mg tablet 20 mg PO BID PRN (Reason: abdominal pain) Qty: 30 0RF furosemide 20 mg tablet 20 mg PO DAILY 30 Days Qty: 30 0RF fluticasone propionate 50 mcg/actuation [place],Suspension 1 spray intranasal BID 30 Days Qty: 16 0RF finasteride 5 mg tablet 5 mg PO DAILY 30 Days Qty: 30 2RF Invega Sustenna 156 mg/mL syringe 156 mg IM QMONTH Qty: 1 0RF Rx Instructions: Next injection due on 02/05/2022 tramadol 50 mg tablet 1 tab PO TID PRN (Reason: Pain (Scale Score 4-6)) Referrals: Samuel Schneider MD [Primary Care Provider] - Rivera Benitez MD [Physician] - Print Language: Estonian
[2022-06-04 10:19] VITALS: BP 164/103; PULSE 54; RESP 18; O2SAT 96
== END 2022-06-04 11:41 | disposition home or self-care (01) ==
PROVIDERS: Emergency Provider Emergency Medicine; PCP Internal Medicine
DX: Z46.6 Encounter for fitting and adjustment of urinary device (principal); E11.9 Type 2 diabetes mellitus without complications; I10 Essential (primary) hypertension; E78.00 Pure hypercholesterolemia, unspecified
CPT/HCPCS: 99283

== ENCOUNTER 2022-06-13 00:21 | Emergency (ER) | payer MEDICARE, MEDICAID, SELFPAY ==
[2022-06-13 00:35] VITALS: BP 160/80; BP 161/90; PULSE 52; PULSE 58; RESP 16; TEMP 37.1; O2SAT 94; O2SAT 98; BMI 28.1
--- NOTE | 2022-06-13 00:38 | ED.MALEGU ---
HPI - Male Genitourinary General Chief complaint: Urogenital-Male Stated complaint: DIFFICULTY URINATING Time Seen by Provider: 06/13/22 00:33 Source: patient Mode of arrival: EMS History of Present Illness HPI Narrative: Previous history of BPH was seen here on 05/24/16 for urinary retention Renteria catheter was placed which was removed on 06/04 comes back here again as feels that retaining urine and urinating only few drops of urine for last few days no nausea no vomiting no significant abdominal pain no fever or chills patient is on tamsulosin daily Related Data Home Medications Medication Instructions Recorded Confirmed tramadol 50 mg tablet 1 tab PO TID PRN Pain (Scale Score 05/09/22 05/09/22 4-6) Previous Rx's Medication Instructions Recorded albuterol sulfate 90 mcg/actuation 2 puff inhalation Q4H PRN 01/06/22 aerosol inhaler (Ventolin HFA) bronchospasm #6.7 grams atorvastatin 40 mg tablet 40 mg PO DAILY 30 days #30 tabs 01/06/22 dicyclomine 10 mg capsule 20 mg PO TID PRN for pain 30 days 01/06/22 #90 caps divalproex 250 mg tablet,delayed 250 mg PO BID 30 days #60 tabs 01/06/22 release donepezil 5 mg tablet 5 mg PO BEDTIME 30 days #30 tabs 01/06/22 famotidine 20 mg tablet 20 mg PO BID PRN abdominal pain 01/06/22 #30 tabs finasteride 5 mg tablet 5 mg PO DAILY 30 days #30 tabs 01/06/22 fluticasone propionate 50 1 spray intranasal BID 30 days #16 01/06/22 mcg/actuation nasal grams spray,suspension furosemide 20 mg tablet 20 mg PO DAILY 30 days #30 tabs 01/06/22 ibuprofen 600 mg tablet 600 mg PO Q6H PRN mild-mod pain 30 01/06/22 days #60 tabs losartan 50 mg tablet 50 mg PO DAILY 30 days #30 tabs 01/06/22 olanzapine 2.5 mg tablet 2.5 mg PO BEDTIME 30 days #30 tabs 01/06/22 paliperidone palmitate 156 mg/mL 156 mg IM QMONTH #1 mL 01/06/22 intramuscular syringe (Invega Sustenna) potassium chloride 20 mEq 20 meq PO DAILY 30 days #30 tabs 01/06/22 tablet,extended release(part/cryst) pramipexole 0.125 mg tablet 0.125 mg PO TID 30 days #90 tabs 01/06/22 tamsulosin 0.4 mg capsule 0.4 mg PO DAILY 30 days #30 caps 01/06/22 trazodone 100 mg tablet 100 mg PO BEDTIME PRN Insomnia 30 01/06/22 days #30 tabs trihexyphenidyl 2 mg tablet 2 mg PO BID 30 days #60 tabs 01/06/22 tramadol 50 mg tablet 50 mg PO TID PRN pain 15 days #45 01/14/22 tabs omeprazole 20 mg capsule,delayed 20 mg PO DAILY #30 caps 04/18/22 release levothyroxine 200 mcg tablet 200 mcg PO QAM #90 tabs 05/08/22 finasteride 5 mg tablet 5 mg PO DAILY #90 tabs 06/13/22 tamsulosin 0.4 mg capsule (Flomax) 0.4 mg PO BEDTIME #90 caps 06/13/22 Allergies Allergy/AdvReac Type Severity Reaction Status Date / Time lisinopril [LISINOPRIL] Allergy Intermediate RASH Verified 12/20/21 11:56 Review of Systems Review of Systems: Yes all other systems are reviewed and are negative PMFSH Past Medical History Medical History Abdominal pain, chronic, right lower quadrant Acquired hypothyroidism Allergic rhinitis Anxiety Benign essential hypertension Benign prostatic hyperplasia with urinary obstruction CAD (coronary artery disease) Constipation COPD (chronic obstructive pulmonary disease) Diabetes mellitus GERD (gastroesophageal reflux disease) Insomnia Obesity (BMI 30-39.9) Osteoarthritis Pure hypercholesterolemia Vitamin D deficiency Surgical History History of arthroscopic knee surgery History of cardiac catheterization History of colectomy History of esophagogastroduodenoscopy (EGD) History of excision of pilonidal cyst History of eye surgery History of skin graft Hx of colonoscopy Family History Family History Father Stroke CVD (cerebrovascular disease) Mother Hypertension Social History Social History Household Members: None Housing: Apartment Do you presently have visiting nurse or other home services: Yes (Had [facility] and [facility]) Unable to assess alcohol history related to: Refusing to respond Alcohol intake: never Patient Tobacco Use Status: Never used Tobacco Tobacco use type: Cigarette and Cigar Years Smoked: unknown e-Cigarette/Vaping Use: Never Used Second Hand Smoke Exposure: No Advance Directives: No Advance Directives Information Provided: No service: No Current occupational status: retired Sexual orientation: Straight/Heterosexual Physical Exam Vital Signs: Vital Signs: Last Vital Signs Temp 98.1 F 06/13/22 04:20 Pulse 60 06/13/22 04:20 Resp 16 06/13/22 04:20 BP 160/72 H 06/13/22 04:20 Pulse Ox 97 06/13/22 04:20 O2 Del Method 06/13/22 04:20 BMI result Body Mass Index 28.1 Appearance: Alert. Oriented X2-3. No acute distress. ENT: Pharynx normal. Oral Mucosa moist Neck: Normal inspection. Neck supple. CVS: Normal heart rate and rhythm. Pulses normal. Respiratory: No respiratory distress. Equal air entry bilateral, no wheezing/rales/rhonchi Abdomen: Soft and nontender. Bowel sounds are present, no mass palpable, no CVA tenderness Skin: Skin warm and dry. Normal skin color. Normal skin turgor. Extremities: Right leg lower extremity edema. No calf tenderness Neuro: Oriented X 3. No motor deficit. MDM - Male Genitourinary MDM Narrative Medical decision making narrative: Renteria catheter was placed patient advised to follow with urologist Lab Data Attestation: I reviewed the patient's lab results. Labs: Lab Results 06/13/22 Range/Units 02:13 Urine Color Straw Urine Appearance Clear Urine pH 7.0 (5.0-8.0) Ur Specific [place] 1.010 (1.005-1.025) Urine Protein Trace (Neg-Trace) mg/dL Urine Glucose (UA) Negative (Negative) mg/dL Urine Ketones Negative (Negative) mg/dL Urine Blood Large (3+) H (Negative) Urine Nitrite Negative (Negative) Ur Leukocyte Esterase Negative (Negative) Urine RBC >20 H (0-2) /HPF Urine WBC 0-5 (0-5) /HPF Ur Squamous Epith Cells 0-2 (0-2) /HPF Urine Bacteria None Seen (None Seen) Hyaline Casts 0-2 (0-2) /LPF Discharge Plan Discharge Clinical Impression: Benign prostatic hyperplasia with urinary obstruction Patient Disposition: Home, Self-Care Instructions: Urinary Retention in Men (ED), Enlarged Prostate (BPH) (ED) Additional Instructions: Renteria catheter care as advised Follow-up with urologist Prescriptions: New tamsulosin [Flomax] 0.4 mg capsule 0.4 mg PO BEDTIME Qty: 90 2RF finasteride 5 mg tablet 5 mg PO DAILY Qty: 90 2RF No Action tramadol 50 mg tablet 50 mg PO TID PRN (Reason: pain) 15 Days Qty: 45 0RF omeprazole 20 mg capsule,delayed release(DR/EC) 20 mg PO DAILY Qty: 30 3RF levothyroxine 200 mcg tablet 200 mcg PO QAM Qty: 90 0RF albuterol sulfate [Ventolin HFA] 90 mcg/actuation Hfa Aerosol Inhaler 2 puff inhalation Q4H PRN (Reason: bronchospasm) Qty: 6.7 0RF dicyclomine 10 mg Capsule 20 mg PO TID PRN (Reason: for pain) 30 Days Qty: 90 0RF atorvastatin 40 mg Tablet 40 mg PO DAILY 30 Days Qty: 30 0RF donepezil 5 mg Tablet 5 mg PO BEDTIME 30 Days Qty: 30 0RF tamsulosin 0.4 mg Capsule 0.4 mg PO DAILY 30 Days Qty: 30 0RF losartan 50 mg Tablet 50 mg PO DAILY 30 Days Qty: 30 0RF Protocol: Hold for SBP< HOLD for SBP < : 90 divalproex 250 mg Tablet,Delayed Release (Dr/Ec) 250 mg PO BID 30 Days Qty: 60 0RF olanzapine 2.5 mg Tablet 2.5 mg PO BEDTIME 30 Days Qty: 30 0RF trazodone 100 mg Tablet 100 mg PO BEDTIME PRN (Reason: Insomnia) 30 Days Qty: 30 0RF pramipexole 0.125 mg Tablet 0.125 mg PO TID 30 Days Qty: 90 0RF ibuprofen 600 mg Tablet 600 mg PO Q6H PRN (Reason: mild-mod pain) 30 Days Qty: 60 0RF trihexyphenidyl 2 mg Tablet 2 mg PO BID 30 Days Qty: 60 0RF potassium chloride 20 mEq tablet,ER particles/crystals 20 meq PO DAILY 30 Days Qty: 30 0RF Rx Instructions: to be taken together with Furosemide in the morning famotidine 20 mg tablet 20 mg PO BID PRN (Reason: abdominal pain) Qty: 30 0RF furosemide 20 mg tablet 20 mg PO DAILY 30 Days Qty: 30 0RF fluticasone propionate 50 mcg/actuation [place],Suspension 1 spray intranasal BID 30 Days Qty: 16 0RF finasteride 5 mg tablet 5 mg PO DAILY 30 Days Qty: 30 2RF Invega Sustenna 156 mg/mL syringe 156 mg IM QMONTH Qty: 1 0RF Rx Instructions: Next injection due on 02/05/2022 tramadol 50 mg tablet 1 tab PO TID PRN (Reason: Pain (Scale Score 4-6)) Referrals: Rivera Benitez MD [Physician] - 1 week Interventions: ED Discharge Assessment Last Done: 06/13/22 04:21 Discharge Date/Time: 06/13/22 04:21
[2022-06-13 02:20] VITALS: BP 166/73; PULSE 54; RESP 18; O2SAT 98
[2022-06-13 02:23] LABS: Appearance Urine Clear; Glucose Urine UA Negative (Negative); Leukocyte Esterase Urine Negative (Negative); Nitrite Urine Negative (Negative); Urine Blood Large (3+) (Negative); Urine Ketones Negative (Negative); Urine Protein Trace mg/dL (Neg-Trace)
[2022-06-13 02:28] LABS: Bacteria Urine None Seen (None Seen); Hyaline Casts Urine 0-2 /LPF (0-2); RBC Urine >20 /HPF (0-2); Squamous Epithelial Cell Urine 0-2 /HPF (0-2); WBC Urine 0-5 /HPF (0-5)
[2022-06-13 02:29] LABS: Color Urine Straw
[2022-06-13] MEDS: LORazepam 1 MG TABLET 2 MG PO (02:30)
[2022-06-13 04:20] VITALS: BP 160/72; PULSE 60; RESP 16; TEMP 36.7; O2SAT 97
== END 2022-06-13 04:21 | disposition home or self-care (01) ==
PROVIDERS: Emergency Provider Internal Medicine; PCP Internal Medicine
DX: R33.9 Retention of urine, unspecified (principal); N40.1 Benign prostatic hyperplasia with lower urinary tract symptoms; N13.8 Other obstructive and reflux uropathy; Z79.899 Other long term (current) drug therapy
CPT/HCPCS: 51798; 81001; 99283; 99284

== ENCOUNTER 2022-06-14 07:46 | Emergency (ER) | payer MEDICARE, MEDICAID, SELFPAY ==
[2022-06-14 07:51] VITALS: BP 132/108; BP 170/70; PULSE 58; PULSE 73; RESP 16; TEMP 36.9; O2SAT 97; BMI 29.6
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
--- NOTE | 2022-06-14 10:45 | MHC.CM.ED ---
Received case management consult from Marisel CARRASQUILLO. Patient has a history of BPH. Patient currently has a perry and is requesting it be removed. Patient has a history of TBI and bipolar. Perry removed at patient's request. Patient is active with Sunil LEONA. Sunil LEONA aware. Continue to monitor for d/c needs.
== END 2022-06-14 11:47 | disposition home or self-care (01) ==
PROVIDERS: Emergency Provider Emergency Medicine; PCP Internal Medicine
DX: Z46.6 Encounter for fitting and adjustment of urinary device (principal); N40.1 Benign prostatic hyperplasia with lower urinary tract symptoms; R33.8 Other retention of urine
CPT/HCPCS: 99282

== ENCOUNTER 2022-08-02 07:35 | Emergency (ER) | payer MEDICARE, MEDICAID, SELFPAY ==
--- NOTE | ~2022-08-02 | CT_ITS ---
EXAMINATION: CT ABDOMEN AND PELVIS WITHOUT CONTRAST CLINICAL INFORMATION: Generalized abdominal pain COMPARISON: Ultrasound abdomen 10/31/[address] abdomen pelvis 10/12/2016. TECHNIQUE: Multidetector volumetric imaging was performed from the superior aspect of the liver through the pubic symphysis. Sagittal and coronal reformatted images were obtained on the technologist's workstation. This CT examination was performed using dose optimization techniques as appropriate, variously including the following: *Automated exposure control *Adjustment of mA and/or kV according to patient size (this includes techniques or standardized protocols for targeted exams where dose is matched to indication/reason for exam; i.e. extremities or head) *Use of iterative reconstruction technique DLP: 697 mGy-cm FINDINGS: LUNG BASES: There is bibasilar atelectasis or scarring. Heart size is normal. LIVER, GALLBLADDER, AND BILIARY TREE: The liver is normal in size, shape, and attenuation. No focal hepatic lesion or biliary ductal dilatation is present. There is dependent hyperdense small stones or gravel in a nondistended gallbladder. No wall thickening. PANCREAS: Unremarkable. SPLEEN: Unremarkable. ADRENAL GLANDS: Unremarkable. KIDNEYS AND URETERS: The kidneys are normal in size, shape, and attenuation. No hydronephrosis, hydroureter, or calculi seen. No perinephric stranding. BLADDER: Unremarkable. GASTROINTESTINAL TRACT: There is postsurgical annular sutures along the distal ascending colon/hepatic flexure which is widely patent. Scattered stool is seen in the rest of the colon without distention. The small bowel loops are normal caliber. Appendix is not seen or removed. No inflammatory process seen in the abdomen. There is no free fluid. ABDOMINAL WALL: No significant hernia is appreciated. Remote postsurgical changes along the anterior gall LYMPH NODES: Normal. VASCULAR: Mild atherosclerotic changes of abdominal aorta without aneurysmal dilatation. PELVIC VISCERA: Unremarkable. OSSEOUS STRUCTURES: There are degenerative disc changes L5-S1 and L1-L3 disc levels with moderate ventral spondylosis L1-L2 and L2-L3 disc levels. No aggressive lytic or sclerotic process seen. CT/CT abdomen pelvis wo IV con IMPRESSION: No acute intra-abdominal process seen. Postsurgical changes right colon with widely patent anastomosis. Moderate constipation. Cholelithiasis. Fleischner guidelines were followed.
[2022-08-02 07:43] VITALS: BP 134/80; BP 179/82; PULSE 60; PULSE 66; RESP 16; TEMP 36.7; O2SAT 100; BMI 28.7
--- NOTE | 2022-08-02 08:00 | ECG_ITS ---
Test Reason : weakness Blood Pressure : / mmHG Vent. Rate : 053 BPM Atrial Rate : 300 BPM P-R Int : 000 ms QRS Dur : 146 ms QT Int : 452 ms P-R-T Axes : 019 071 -45 degrees QTc Int : 424 ms Atrial flutter with variable A-V block with premature ventricular or aberrantly conducted complexes Left bundle branch block Abnormal ECG When compared with ECG of 03-JUN-2022 12:45, No significant changes seen Referred By: Tim Norris Electronically Signed By:SERGIO NELSON MD
--- NOTE | 2022-08-02 08:01 | ED_ITS ---
HPI - Abdominal Pain General Chief Complaint: Abdominal Pain Stated Complaint: R L Quadrant pain Time Seen by Provider: 08/02/22 07:53 Source: patient and EMS Mode of arrival: EMS Limitations: no limitations History of Present Illness HPI narrative: 71-year-old male came by ambulance for evaluation of abdominal pain. Patient lives home alone mostly independent came in for evaluation of acute on chronic abdominal pain, pain is localized to the right lower quadrant area, nothing make pain worse or better, no other associated symptoms no nausea, no fever, no chills, no vomiting, no diarrhea, no dysuria, no frequency urination. Patient had previous abdominal surgery patient do not recall what kind of surger y. Related Data Home Medications Medication Instructions Recorded Confirmed tramadol 50 mg tablet 1 tab PO TID PRN Pain (Scale Score 05/09/22 05/09/22 4-6) Previous Rx's Medication Instructions Recorded albuterol sulfate 90 mcg/actuation 2 puff inhalation Q4H PRN 01/06/22 aerosol inhaler (Ventolin HFA) bronchospasm #6.7 grams atorvastatin 40 mg tablet 40 mg PO DAILY 30 days #30 tabs 01/06/22 dicyclomine 10 mg capsule 20 mg PO TID PRN for pain 30 days 01/06/22 #90 caps divalproex 250 mg tablet,delayed 250 mg PO BID 30 days #60 tabs 01/06/22 release donepezil 5 mg tablet 5 mg PO BEDTIME 30 days #30 tabs 01/06/22 famotidine 20 mg tablet 20 mg PO BID PRN abdominal pain 01/06/22 #30 tabs finasteride 5 mg tablet 5 mg PO DAILY 30 days #30 tabs 01/06/22 fluticasone propionate 50 1 spray intranasal BID 30 days #16 01/06/22 mcg/actuation nasal grams spray,suspension furosemide 20 mg tablet 20 mg PO DAILY 30 days #30 tabs 01/06/22 ibuprofen 600 mg tablet 600 mg PO Q6H PRN mild-mod pain 30 01/06/22 days #60 tabs losartan 50 mg tablet 50 mg PO DAILY 30 days #30 tabs 01/06/22 olanzapine 2.5 mg tablet 2.5 mg PO BEDTIME 30 days #30 tabs 01/06/22 paliperidone palmitate 156 mg/mL 156 mg IM QMONTH #1 mL 01/06/22 intramuscular syringe (Invega Sustenna) potassium chloride 20 mEq 20 meq PO DAILY 30 days #30 tabs 01/06/22 tablet,extended release(part/cryst) pramipexole 0.125 mg tablet 0.125 mg PO TID 30 days #90 tabs 01/06/22 tamsulosin 0.4 mg capsule 0.4 mg PO DAILY 30 days #30 caps 01/06/22 trazodone 100 mg tablet 100 mg PO BEDTIME PRN Insomnia 30 01/06/22 days #30 tabs trihexyphenidyl 2 mg tablet 2 mg PO BID 30 days #60 tabs 01/06/22 tramadol 50 mg tablet 50 mg PO TID PRN pain 15 days #45 01/14/22 tabs omeprazole 20 mg capsule,delayed 20 mg PO DAILY #30 caps 04/18/22 release levothyroxine 200 mcg tablet 200 mcg PO QAM #90 tabs 05/08/22 finasteride 5 mg tablet 5 mg PO DAILY #90 tabs 06/13/22 tamsulosin 0.4 mg capsule (Flomax) 0.4 mg PO BEDTIME #90 caps 06/13/22 Allergies Allergy/AdvReac Type Severity Reaction Status Date / Time lisinopril [LISINOPRIL] Allergy Intermediate RASH Verified 12/20/21 11:56 Review of Systems Review of Systems All other systems are reviewed and are negative Constitutional: Reports as per HPI and Reports no additional constitutional complaints Eyes: Reports as per HPI and Reports no additional eye complaints Reports system reviewed and no additional complaints, except as documented Cardiovascular: Reports as per HPI and Reports no additional cardiovascular c omplaints Respiratory: Reports as per HPI and Reports no additional respiratory complaints Gastrointestinal: Reports as per HPI and Reports no additional gastrointestinal complaints Genitourinary: Reports no additional female genitourinary complaints Musculoskeletal: Reports no additional musculoskeletal complaints Skin/Breast: Reports system reviewed and no additional complaints, except as docu Psychiatric: Reports no additional psychiatric complaints Endocrine: Reports no additional endocrine complaints Hematologic/Lymphatic: Reports no additional hematologic/lymphatic complaints Allergic/Immunologic: Reports no additional allergic/immunologic complaints Reports system reviewed and no additional complaints, except as documented and Reports Abnormal speech present PMFSH Past Medical History Medical History Abdominal pain, chronic, right lower quadrant Acquired hypothyroidism Allergic rhinitis Anxiety Benign essential hypertension Benign prostatic hyperplasia with urinary obstruction CAD (coronary artery disease) Constipation COPD (chronic obstructive pulmonary disease) Diabetes mellitus GERD (gastroesophageal reflux disease) Insomnia Obesity (BMI 30-39.9) Osteoarthritis Pure hypercholesterolemia Vitamin D deficiency Surgical History History of arthroscopic knee surgery History of cardiac catheterization History of colectomy History of esophagogastroduodenoscopy (EGD) History of excision of pilonidal cyst History of eye surgery History of skin graft Hx of colonoscopy Family History Family History Father Stroke CVD (cerebrovascular disease) Mother Hypertension Social History Social History Household Members: None Housing: Apartment Do you presently have visiting nurse or other home services: Yes (Had [facility] ([facility] and [facility]) Unable to assess alcohol history related to: Refusing to respond Alcohol intake: never Patient Tobacco Use Status: Former Tobacco user Quit Date: long time ago Tobacco use type: Cigarette and Cigar Years Smoked: unknown Smoked in Last 30 Days: No e-Cigarette/Vaping Use: Never Used Second Hand Smoke Exposure: No Use of substances other than those prescribed or required for medical reasons: No Advance Directives: No Advance Directives Information Provided: Yes service: No Current occupational status: retired Sexual orientation: Straight/Heterosexual Physical Exam ED Vital Signs: Vital Signs - 24 hr 08/02/22 07:43 Temperature 98.1 F Pulse Rate 60 Respiratory Rate 16 Blood Pressure 179/82 H Pulse Oximetry 100 Oxygen Delivery Method Room Air BMI result Body Mass Index 28.7 vital signs have been reviewed as appeared to be correct. Blood pressure normal. Heart rate normal. Respiration rate normal. Temperature normal. Oxygen saturation normal. Appearance: Alert. Oriented X3. No acute distress. Head: Normal external exam. Normocephalic. Atraumatic. No [place] signs noted. No raccoon eyes noted Eyes: PERRLA. EOMI. Conjunctiva and sclera normal. Eyelids normal. ENT: TM's Normal. Pharynx normal. Uvula midline. Moist mucous membranes. No trismus noted. No drooling noted. No muffled voice noted. Neck: Normal inspection. Neck supple. FROM. No adenopathy. Thyroid Normal. No meningeal signs. No neck mass noted. CVS: Normal heart rate and rhythm. Heart sound normal. No murmurs noted. Pulses normal throughout. Respiratory: No respiratory distress. Painless inspiration. Breath sounds normal. No wheezes/rales/rhonchi noted. Chest nontender. No accessory muscle usage noted or decreased air movement noted. Abdomen: Soft and nontender. Bowel sounds normal in all 4 quadrants. No distention noted. No organomegaly noted. No visible injury noted. Back: No CVA tenderness. Full range of motion noted. Skin: Skin warm and dry. Normal skin color. Normal skin turgor. No rashes/lesions/lacerations noted. Extremities: No lower extremity edema. Extremities exhibit normal range of motion. Extremities nontender. Neuro: Oriented X 3. Cranial nerve exam: II-XII are grossly intact No motor deficit. No sensory deficit. Reflexes normal. Course Course Course Narrative: Acute on chronic abdominal pain, physical exam, labs, CT of the abdomen and pelvis are not revealing, patient is at his baseline. Patient is known to have psych history no apparent acute psychosis at this point will discharge back home. MDM - Abdominal Pain Medical Records Attestation: I reviewed the patient's medical records. Lab Data Attestation: I reviewed the patient's lab results. Result diagrams: 08/02/22 08:28 10 08:28 Labs: Lab Results 08/02/22 08/02/22 08/02/22 Range/Units 08:28 08:28 08:28 WBC 5.1 (4.8-10.8) X10*3/uL RBC 5.04 (4.60-5.80) X10*6/uL Hgb 15.0 (14.0-18.0) g/dl Hct 44.8 (42.0-52.0) % MCV 88.9 (80.0-98.0) fL MCH 29.8 (27.0-33.0) pg MCHC 33.5 (31.0-36.0) g/dl RDW 13.6 (11.0-16.0) % Plt Count 195 (160-400) X10*3/uL MPV 9.7 (9.4-12.4) fL Immature Gran % (Auto) 0.4 (0.0-0.4) % Neut % (Auto) 68.2 (45-73) % Lymph % (Auto) 19.2 L (20-40) % [place] % (Auto) 10.2 (2-11) % Eos % (Auto) 1.6 (0-4) % Baso % (Auto) 0.4 (0-2) % Lymph # (Auto) 1.0 L (1.2-4.9) X10*3/uL [place] # (Auto) 0.5 (0.1-1.2) X10*3/uL Eos # (Auto) 0.1 (0.0-0.4) X10*3/uL Baso # (Auto) 0.0 (0.0-0.2) X10*3/uL Abs Immat Gran (auto) 0.02 (0.00-0.03) X10*3/uL Absolute Neuts (auto) 3.5 (2.0-8.3) x10*3/uL Absolute Nucleated RBC 0.000 (0.0-0.012) X10*3/uL Nucleated RBC % (auto) 0.0 (0.0-0.2) /100WBC Sodium 140 (135-145) mmol/L Potassium 4.0 (3.3-5.1) mmol/L Chloride 103 (96-108) mmol/L Carbon Dioxide 27 (22-29) mmol/L Anion Gap 14 (12-20) BUN 27 H D (9-16) mg/dL Creatinine 0.98 (0.5-1.4) mg/dL Estim Creat Clear Calc 77.1 Estimated GFR > 60 Random Glucose 107 (60-115) mg/dL Calcium 9.0 (8.4-10.2) mg/dL Total Bilirubin 0.3 (0.0-1.0) mg/dL Direct Bilirubin < 0.2 (0.0-0.5) mg/dL AST 16 (5-37) U/L ALT 15 (0-40) U/L Alkaline Phosphatase 68 (39-117) U/L Troponin I High Sens 11.6 (<3.5-35.0) ng/L Total Protein 7.0 (6.5-8.0) g/dL Albumin 3.9 (3.5-5.0) g/dL Lipase 40 (8-78) U/L Urine Color Urine Appearance Urine pH (5.0-9.0) Ur Specific [place] (1.005-1.025) Urine Protein (Neg-Trace) mg/dL Urine Glucose (UA) (Negative) mg/dL Urine Ketones (Negative) mg/dL Urine Blood (Negative) Urine Nitrite (Negative) Ur Leukocyte Esterase (Negative) Urine RBC (0-2) /HPF Urine WBC (0-5) /HPF Ur Squamous Epith Cells (0-2) /HPF Urine Bacteria (None Seen) Hyaline Casts (0-2) /LPF 08/02/22 Range/Units 09:03 WBC (4.8-10.8) X10*3/uL RBC (4.60-5.80) X10*6/uL Hgb (14.0-18.0) g/dl Hct (42.0-52.0) % MCV (80.0-98.0) fL MCH (27.0-33.0) pg MCHC (31.0-36.0) g/dl RDW (11.0-16.0) % Plt Count (160-400) X10*3/uL MPV (9.4-12.4) fL Immature Gran % (Auto) (0.0-0.4) % Neut % (Auto) (45-73) % Lymph % (Auto) (20-40) % [place] % (Auto) (2-11) % Eos % (Auto) (0-4) % Baso % (Auto) (0-2) % Lymph # (Auto) (1.2-4.9) X10*3/uL [place] # (Auto) (0.1-1.2) X10*3/uL Eos # (Auto) (0.0-0.4) X10*3/uL Baso # (Auto) (0.0-0.2) X10*3/uL Abs Immat Gran (auto) (0.00-0.03) X10*3/uL Absolute Neuts (auto) (2.0-8.3) x10*3/uL Absolute Nucleated RBC (0.0-0.012) X10*3/uL Nucleated RBC % (auto) (0.0-0.2) /100WBC Sodium (135-145) mmol/L Potassium (3.3-5.1) mmol/L Chloride (96-108) mmol/L Carbon Dioxide (22-29) mmol/L Anion Gap (12-20) BUN (9-16) mg/dL Creatinine (0.5-1.4) mg/dL Estim Creat Clear Calc Estimated GFR Random Glucose (60-115) mg/dL Calcium (8.4-10.2) mg/dL Total Bilirubin (0.0-1.0) mg/dL Direct Bilirubin (0.0-0.5) mg/dL AST (5-37) U/L ALT (0-40) U/L Alkaline Phosphatase (39-117) U/L Troponin I High Sens (<3.5-35.0) ng/L Total Protein (6.5-8.0) g/dL Albumin (3.5-5.0) g/dL Lipase (8-78) U/L Urine Color Yellow Urine Appearance Clear Urine pH 7.0 (5.0-9.0) Ur Specific [place] 1.010 (1.005-1.025) Urine Protein Trace (Neg-Trace) mg/dL Urine Glucose (UA) Negative (Negative) mg/dL Urine Ketones Negative (Negative) mg/dL Urine Blood Trace H (Negative) Urine Nitrite Negative (Negative) Ur Leukocyte Esterase Negative (Negative) Urine RBC 0-2 (0-2) /HPF Urine WBC 0-5 (0-5) /HPF Ur Squamous Epith Cells 0-2 (0-2) /HPF Urine Bacteria None Seen (None Seen) Hyaline Casts 0-2 (0-2) /LPF Imaging Data Abdomen and pelvis CT: Attestation: I personally reviewed and interpreted this imaging study as follows: Radiologist's impression: No acute intra-abdominal process seen. ? Postsurgical changes right colon with widely patent anastomosis. Moderate constipation. ? Cholelithiasis. ? Discharge Plan Discharge Clinical Impression: Abdominal pain Patient Disposition: Home, Self-Care Instructions: Chronic Abdominal Pain (ED) Prescriptions: No Action tramadol 50 mg tablet 50 mg PO TID PRN (Reason: pain) 15 Days Qty: 45 0RF omeprazole 20 mg capsule,delayed release(DR/EC) 20 mg PO DAILY Qty: 30 3RF levothyroxine 200 mcg tablet 200 mcg PO QAM Qty: 90 0RF albuterol sulfate [Ventolin HFA] 90 mcg/actuation Hfa Aerosol Inhaler 2 puff inhalation Q4H PRN (Reason: bronchospasm) Qty: 6.7 0RF dicyclomine 10 mg Capsule 20 mg PO TID PRN (Reason: for pain) 30 Days Qty: 90 0RF atorvastatin 40 mg Tablet 40 mg PO DAILY 30 Days Qty: 30 0RF donepezil 5 mg Tablet 5 mg PO BEDTIME 30 Days Qty: 30 0RF tamsulosin 0.4 mg Capsule 0.4 mg PO DAILY 30 Days Qty: 30 0RF losartan 50 mg Tablet 50 mg PO DAILY 30 Days Qty: 30 0RF Protocol: Hold for SBP< HOLD for SBP < : 90 divalproex 250 mg Tablet,Delayed Release (Dr/Ec) 250 mg PO BID 30 Days Qty: 60 0RF olanzapine 2.5 mg Tablet 2.5 mg PO BEDTIME 30 Days Qty: 30 0RF trazodone 100 mg Tablet 100 mg PO BEDTIME PRN (Reason: Insomnia) 30 Days Qty: 30 0RF pramipexole 0.125 mg Tablet 0.125 mg PO TID 30 Days Qty: 90 0RF ibuprofen 600 mg Tablet 600 mg PO Q6H PRN (Reason: mild-mod pain) 30 Days Qty: 60 0RF trihexyphenidyl 2 mg Tablet 2 mg PO BID 30 Days Qty: 60 0RF potassium chloride 20 mEq tablet,ER particles/crystals 20 meq PO DAILY 30 Days Qty: 30 0RF Rx Instructions: to be taken together with Furosemide in the morning famotidine 20 mg tablet 20 mg PO BID PRN (Reason: abdominal pain) Qty: 30 0RF furosemide 20 mg tablet 20 mg PO DAILY 30 Days Qty: 30 0RF fluticasone propionate 50 mcg/actuation [place],Suspension 1 spray intranasal BID 30 Days Qty: 16 0RF finasteride 5 mg tablet 5 mg PO DAILY 30 Days Qty: 30 2RF Invega Sustenna 156 mg/mL syringe 156 mg IM QMONTH Qty: 1 0RF Rx Instructions: Next injection due on 02/05/2022 tramadol 50 mg tablet 1 tab PO TID PRN (Reason: Pain (Scale Score 4-6)) tamsulosin [Flomax] 0.4 mg capsule 0.4 mg PO BEDTIME Qty: 90 2RF finasteride 5 mg tablet 5 mg PO DAILY Qty: 90 2RF Referrals: Samuel Schneider MD [Primary Care Provider] -
[2022-08-02] MEDS: 0.9 % Sodium Chloride 1,000 ML 999 ML IV (08:30)
[2022-08-02 08:31] LABS: MANUAL DIFF FLAG NO
[2022-08-02 08:38] LABS: Basophils Percent Auto 0.4 % (0-2); Eosinophils Absolute Auto 0.1 X10*3/uL (0.0-0.4); Eosinophils Percent Auto 1.6 % (0-4); Hematocrit 44.8 % (42.0-52.0); Imm Gran Abs Auto 0.02 X10*3/uL (0.00-0.03); Imm Gran Pct Auto 0.4 % (0.0-0.4); Lymphocytes Percent Auto 19.2 % (20-40); Mean Corpuscular HGB Conc 33.5 g/dl (31.0-36.0); Mean Corpuscular Hemoglobin 29.8 pg (27.0-33.0); Mean Corpuscular Volume 88.9 fL (80.0-98.0); Mean Platelet Volume 9.7 fL (9.4-12.4); Monocytes Absolute Auto 0.5 X10*3/uL (0.1-1.2); Monocytes Percent Auto 10.2 % (2-11); Neutrophils Absolute Auto 3.5 x10*3/uL (2.0-8.3); Neutrophils Percent Auto 68.2 % (45-73); Platelet Count 195 X10*3/uL (160-400); Red Blood Count 5.04 X10*6/uL (4.60-5.80); Red Cell Distribution Width 13.6 % (11.0-16.0); White Blood Count 5.1 X10*3/uL (4.8-10.8)
[2022-08-02 08:49] LABS: Alanine Aminotransferase 15 U/L (0-40); Albumin Level 3.9 g/dL (3.5-5.0); Alkaline Phosphatase 68 U/L (39-117); Anion Gap 14 (12-20); Aspartate Amino Transferase 16 U/L (5-37); Bilirubin Direct < 0.2 mg/dL (0.0-0.5); Bilirubin Total 0.3 mg/dL (0.0-1.0); Blood Urea Nitrogen 27 mg/dL (9-16); Carbon Dioxide 27 mmol/L (22-29); Chloride 103 mmol/L (96-108); Creatinine Clr Calc Pharmacy 77.1; Estimated Glomerular Filt Rate > 60; Glucose Random 107 mg/dL (60-115); Lipase 40 U/L (8-78); Sodium 140 mmol/L (135-145)
[2022-08-02 08:53] LABS: Troponin-I High Sensitivity 11.6 ng/L (<3.5-35.0)
[2022-08-02 09:14] LABS: Appearance Urine Clear; Color Urine Yellow; Glucose Urine UA Negative (Negative); Leukocyte Esterase Urine Negative (Negative); Nitrite Urine Negative (Negative); UMIC TRIGGER UACC YES; Urine Blood Trace (Negative); Urine Ketones Negative (Negative); Urine Protein Trace mg/dL (Neg-Trace)
[2022-08-02 09:29] LABS: Bacteria Urine None Seen (None Seen); Hyaline Casts Urine 0-2 /LPF (0-2); RBC Urine 0-2 /HPF (0-2); Squamous Epithelial Cell Urine 0-2 /HPF (0-2); WBC Urine 0-5 /HPF (0-5)
--- NOTE | 2022-08-02 10:22 | PC.NURSE ---
informed pt that he is going to be d/c, pt requested to be put to sleep and monitored for 5 days. informed that is not the plan, plan for d/c home as CT was negative for anything concerning. pt asked t/w to call his mother to pick him up.
[2022-08-02 10:35] VITALS: BP 160/89; PULSE 55; RESP 16; TEMP 36.6; O2SAT 98
== END 2022-08-02 11:15 | disposition home or self-care (01) ==
PROVIDERS: Emergency Provider Emergency Medicine; PCP Internal Medicine
DX: R10.31 Right lower quadrant pain (principal); I10 Essential (primary) hypertension; E11.9 Type 2 diabetes mellitus without complications; E78.00 Pure hypercholesterolemia, unspecified; Z79.02 Long term (current) use of antithrombotics/antiplatelets; Z79.899 Other long term (current) drug therapy
CPT/HCPCS: 36415; 74176; 80048; 80076; 81001; 83690; 84484; 85025; 93005; 99284; 99285

== ENCOUNTER 2022-08-20 08:17 | Emergency (ER) | payer MEDICARE, MEDICAID, SELFPAY ==
[2022-08-20 08:35] VITALS: BP 130/70; BP 193/91; PULSE 65; PULSE 80; RESP 18; TEMP 36.5; O2SAT 98; O2SAT 99; BMI 33.5
--- NOTE | 2022-08-20 08:58 | ED_ITS ---
HPI - General Adult General Chief complaint: General Medical <NEIDA Hummel - Last Filed: 08/20/22 17:26> Stated complaint: ANXIETY PER EMS <NEIDA Hummel - Last Filed: 08/20/22 17:26> Time Seen by Provider: 08/20/22 08:35 <NEIDA Hummel - Last Filed: 08/20/22 17:26> Source: patient, EMS, RN notes reviewed and old records reviewed <NEIDA Hummel - Last Filed: 08/20/22 17:26> Mode of arrival: EMS <NEIDA Hummel - Last Filed: 08/20/22 17:26> Limitations: other (Psychotic) <NEIDA Hummel Last Filed: 08/20/22 17:26> History of Present Illness HPI narrative: 71 year old male with PMHx of Bipolar I disorder, Parkinson disease, BPH, Psychosis, diabetes, CAD GERD, HLD, hypothyroid who presents to the ED via EMS c/o anxiety and urinary frequency x unknown amount of time. Pt reports feeling hyper , and experiencing auditory hallucinations. States Dany Ricans take all my medications and My health is very poor . Admits to being noncompliant with his medication for a while. Denies SI/HI, EtOH or illicit substance use. Denies CP/SOB, abdominal pain, nausea/vomiting <NEIDA Hummel - Last Filed: 08/20/22 17:26> Onset (ago): unknown <NEIDA Hummel - Last Filed: 08/20/22 17:26> Related Data Home medications: Home Medications Medication Instructions Recorded Confirmed levothyroxine 200 mcg tablet 200 mcg PO DAILY@30 08/20/22 08/20/22 omeprazole 20 mg capsule,delayed 20 mg PO DAILY@0630 08/20/22 08/20/22 release Previous Rx's Medication Instructions Recorded albuterol sulfate 90 mcg/actuation 2 puff inhalation Q4H PRN 01/06/22 aerosol inhaler (Ventolin HFA) bronchospasm #6.7 grams divalproex 250 mg tablet,delayed 250 mg PO BID 30 days #60 tabs 01/06/22 release donepezil 5 mg tablet 5 mg PO BEDTIME 30 days #30 tabs 01/06/22 losartan 50 mg tablet 50 mg PO DAILY 30 days #30 tabs 01/06/22 olanzapine 2.5 mg tablet 2.5 mg PO BEDTIME 30 days #30 tabs 01/06/22 paliperidone palmitate 156 mg/mL 156 mg IM QMONTH #1 mL 01/06/22 intramuscular syringe (Invega Sustenna) trazodone 100 mg tablet 100 mg PO BEDTIME PRN Insomnia 30 01/06/22 days #30 tabs finasteride 5 mg tablet 5 mg PO DAILY #90 tabs 06/13/22 tamsulosin 0.4 mg capsule (Flomax) 0.4 mg PO BEDTIME #90 caps 06/13/22 <NEIDA Hummel Last Filed: 08/20/22 17:26> Allergies/adverse reactions: Allergies Allergy/AdvReac Type Severity Reaction Status Date / Time lisinopril [LISINOPRIL] Allergy Intermediate RASH Verified 12/20/21 11:56 <NEIDA Hummel Last Filed: 08/20/22 17:26> Review of Systems Review of Systems: Constitutional: No Fever, No Chills, No Night Sweats, No Fatigue, No Malaise ENT/Mouth: No Ear Pain, No Nasal Congestion, No sore throat, No Rhinorrhea, No Swallowing Difficulty Eyes: No Eye Pain, No Swelling, No Redness, No Vision Changes Cardiovascular: No Chest Pain, No SOB, No Orthopnea, No Edema, No Palpitations Respiratory: No Cough, No Sputum, No Dyspnea Gastrointestinal: No Nausea, No Vomiting, No Diarrhea, No Constipation, No Abdominal pain Genitourinary: No Dysuria, + Urinary Frequency, No Hematuria, No Hesitancy Musculoskeletal: No joint pain, No Myalgias, No Joint Swelling Skin: No Skin Lesions, No rash Neuro: No Weakness, No Loss of Consciousness, No Dizziness, No Headache Psych: +Anxiety, + Delusions, No Depression, No SI/HI, +AH, No VH, No Social Issues <NEIDA Hummel Last Filed: 08/20/22 17:26> Yes all other systems are reviewed and are negative <NEIDA Hummel Last Filed: 08/20/22 17:26> Constitutional: Constitutional: Reports as per HPI <NEIDA Hummel Filed: 08/20/22 17:26> [facility] Past Medical History Attestation statement: The following information was validated with the patient. <NEIDA Hummel - Last Filed: 08/20/22 17:26> Source: old records reviewed <NEIDA Hummel - Last Filed: 08/20/22 17:26> Medical History: Medical History Abdominal pain, chronic, right lower quadrant Acquired hypothyroidism Allergic rhinitis Anxiety Benign essential hypertension Benign prostatic hyperplasia with urinary obstruction CAD (coronary artery disease) Constipation COPD (chronic obstructive pulmonary disease) Diabetes mellitus GERD (gastroesophageal reflux disease) Insomnia Obesity (BMI 30-39.9) Osteoarthritis Pure hypercholesterolemia Vitamin D deficiency <NEIDA Hummel - Last Filed: 08/20/22 17:26> Surgical History: Surgical History History of arthroscopic knee surgery History of cardiac catheterization History of colectomy History of esophagogastroduodenoscopy (EGD) History of excision of pilonidal cyst History of eye surgery History of skin graft Hx of colonoscopy <NEIDA Hummel - Last Filed: 08/20/22 17:26> Family History Family History: Family History Father Stroke CVD (cerebrovascular disease) Mother Hypertension <NEIDA Hummel - Last Filed: 08/20/22 17:26> Social History Social History: Social History Household Members: None Housing: Apartment Do you presently have visiting nurse or other home services: Yes (Had [facility] ([facility] and [facility]) Unable to assess alcohol history related to: Refusing to respond Alcohol intake: former Patient Tobacco Use Status: Former Tobacco user Quit Date: long time ago Tobacco use type: Cigarette and Cigar Years Smoked: unknown Smoked in Last 30 Days: No e-Cigarette/Vaping Use: Never Used Second Hand Smoke Exposure: No Advance Directives: No Advance Directives Information Provided: No service: No Current occupational status: retired Sexual orientation: Straight/Heterosexual <NEIDA Hummel - Last Filed: 08/20/22 17:26> Physical Exam ED Vital Signs: Vital Signs - 24 hr 08/20/22 08:35 08/20/22 17:05 Temperature 97.7 F 97.9 F Pulse Rate 65 58 Respiratory Rate 18 16 Blood Pressure 193/91 H 172/79 H Pulse Oximetry 99 98 Oxygen Delivery Method Room Air Room Air BMI result Body Mass Index 33.5 <NEIDA Hummel - Last Filed: 08/20/22 17:26> Vital Signs - 24 hr 08/20/22 08:35 08/20/22 17:05 Temperature 97.7 F 97.9 F Pulse Rate 65 58 Respiratory Rate 18 16 Blood Pressure 193/91 H 172/79 H Pulse Oximetry 99 98 Oxygen Delivery Method Room Air Room Air BMI result Body Mass Index 33.5 <NEIDA Jarrell - Last Filed: 08/20/22 18:52> Const Other: Disheveled <NEIDA Hummel - Last Filed: 08/20/22 17:26> General: cooperative, no acute distress, alert, awake, Physically active and anxious <NEIDA Hummel - Last Filed: 08/20/22 17:26> Orientation/consciousness: patient oriented x3 <NEIDA Hummel - Last Filed: 08/20/22 17:26> Limitations: no limitations <NEIDA Hummel - Last Filed: 08/20/22 17:26> HENMT Head: Yes normal to inspection and Yes atraumatic <NEIDA Hummel - Last Filed: 08/20/22 17:26> Ears: hearing grossly normal bilaterally <NEIDA Hummel - Last Filed: 08/20/22 17:26> General nose exam: Normal external nose present <NEIDA Hummel Last Filed: 08/20/22 17:26> Face and sinus: Yes normal facial exam <NEIDA Hummel - Last Filed: 08/20/22 17:26> Throat: Yes posterior oropharynx normal <NEIDA Hummel Last Filed: 08/20/22 17:26> Eyes General: appearance normal, both eyes and all related structures <NEIDA Hummel - Last Filed: 08/20/22 17:26> Pupils: Equal, round and reactive pupils present <Anny Tijerina [place] - Last Filed: 08/20/22 17:26> EOM: EOMs intact bilaterally <Anny Tijerina [place] - Last Filed: 08/20/22 17:26> Neck Neck: Yes normal visual inspection and Yes no meningeal signs <NEIDA Hummel - Last Filed: 08/20/22 17:26> Chest Chest palpation & inspection: normal inspection of the chest <Anny Tijerina [facility] Last Filed: 08/20/22 17:26> Resp Effort & Inspection: normal respiratory effort and no respiratory distress <Anny Tijerina [place] - Last Filed: 08/20/22 17:26> Auscultation: clear to auscultation bilaterally, no crackles, no rales, no rhonchi and no wheezes <Anny Tijerina [place] - Last Filed: 08/20/22 17:26> Cardio Rate: regular rate <Anny Tijerina [place] - Last Filed: 08/20/22 17:26> Rhythm: regular rhythm <Anny Tijerina [place] - Last Filed: 08/20/22 17:26> Heart sounds: S1 normal heart sound present and S2 normal heart sound present <Anny Tijerina [place] - Last Filed: 08/20/22 17:26> GI Inspection: Yes normal to inspection <Anny Tijerina [place] - Last Filed: 08/20/22 17:26> Palpation (GI): Soft to palpation, nontender, no guarding and not rigid <Anny Tijerina [place] - Last Filed: 08/20/22 17:26> Skin Rashes: no rashes <Anny Tijerina [place] - Last Filed: 08/20/22 17:26> Wounds: no wounds <Anny Tijerina [place] - Last Filed: 08/20/22 17:26> Neuro General: patient oriented x3, tone normal, moves all extremities, no meningeal s igns and CN's II-XI intact bilaterally <NEIDA Hummel - Last Filed: 08/20/22 17:26> Cranial nerves: Yes Equal, round and reactive pupils present <NEIDA Hummel - Last Filed: 08/20/22 17:26> Extrem General: Yes normal to inspection <NEIDA Hummel - Last Filed: 08/20/22 17:26> Psych Appearance: other (Unkempt) <NEIDA Hummel - Last Filed: 08/20/22 17:26> Speech and movement: Normal speech and movement present and Other speech and movement exam findings present (Psych) <NEIDA Hummel - Last Filed: 08/20/22 17:26> Affect: Blunted affect present and Other affect and mood findings present (Flat affect) <NEIDA Hummel - Last Filed: 08/20/22 17:26> Attitude: Guarded attititude/behavior present and Other attitude/behavior findings present (Psych) (anxious) <NEIDA Hummel - Last Filed: 08/20/22 17:26> Thought process: Tangential thought process present <NEIDA Hummel - Last Filed: 08/20/22 17:26> Thought content: suicidality, no homicidality and Hallucination(s) present auditory <NEIDA Hummel - Last Filed: 08/20/22 17:26> Insight: Poor insight present (Psych) <NEIDA Hummel - Last Filed: 08/20/22 17:26> Judgement: Poor judgement present (Psych) <NEIDA Hummel - Last Filed: 08/20/22 17:26> Course Course Course Narrative: -mild leukopenia. BUN chronically elevated. Labs otherwise reassuring. UA not infected -patient is medically cleared for crisis evaluation. Physician observation initiated at 15:17 -1800--ED care transferred to NEIDA Ahn pending care team evaluation <NEIDA Hummel Last Filed: 08/20/22 17:26> Reevaluation(s) Reevaluation #1: Care team re-evaluated patient patient denies SI, HI, visual, auditory and tactile hallucinations. Jigna spoke to who says this is baseline behavior for him and she feels comfortable with patient going home. Patient does not want to stay in patient, not meeting inpatient criteria. At this time patient will be discharged home. <NEIDA Jarrell - Last Filed: 08/20/22 18:52> Time: 18:50 <NEIDA Jarrell - Last Filed: 08/20/22 18:52> Medical Decision Making MDM Narrative Medical decision making narrative: 71 year old male with PMHx of Bipolar I disorder, Parkinson disease, BPH, Psychosis, diabetes, CAD GERD, HLD, hypothyroid who presents to the ED via EMS c/o anxiety and urinary frequency x unknown amount of time. On exam, mildly hypertensive, lungs CTA, no focal deficits, very anxious, disheveled, + hallucinations/paranoia. Concern for psychotic disorder/bipolar exacerbation vs medication noncompliance vs infectious/metabolic etiologies. Low suspicion for Drug intoxication, CVA. Patient urinated upon ED arrival, bladder scan postvoid with 0 cc Plan: EKG, Labs, UA, tox screen, Care team consult <NEIDA Hummel - Last Filed: 08/20/22 17:26> Medical Records Medical records reviewed: Yes I reviewed the patient's medical records. <NEIDA Hummel - Last F iled: 08/20/22 17:26> Lab Data Lab results reviewed: Yes I reviewed the patient's lab results. <NEIDA Hummel - Last Filed: 08/20/22 17:26> Result diagrams: : 08/20/22 09:30 08/20/22 09:30 <NEIDA Hummel - Last Filed: 08/20/22 17:26> Labs: Lab Results 08/20/22 08/20/22 08/20/22 Range/Units 09:30 09:30 09:30 WBC 4.3 L (4.8-10.8) X10*3/uL RBC 4.82 (4.60-5.80) X10*6/uL Hgb 14.2 (14.0-18.0) g/dl Hct 43.5 (42.0-52.0) % MCV 90.2 (80.0-98.0) fL MCH 29.5 (27.0-33.0) pg MCHC 32.6 (31.0-36.0) g/dl RDW 13.2 (11.0-16.0) % Plt Count 179 (160-400) X10*3/uL MPV 9.6 (9.4-12.4) fL Immature Gran % (Auto) 0.2 (0.0-0.4) % Neut % (Auto) 60.1 (45-73) % Lymph % (Auto) 25.6 (20-40) % [place] % (Auto) 11.5 H (2-11) % Eos % (Auto) 2.1 (0-4) % Baso % (Auto) 0.5 (0-2) % Lymph # (Auto) 1.1 L (1.2-4.9) X10*3/uL [place] # (Auto) 0.5 (0.1-1.2) X10*3/uL Eos # (Auto) 0.1 (0.0-0.4) X10*3/uL Baso # (Auto) 0.0 (0.0-0.2) X10*3/uL Abs Immat Gran (auto) 0.01 (0.00-0.03) X10*3/uL Absolute Neuts (auto) 2.6 (2.0-8.3) x10*3/uL Absolute Nucleated RBC 0.000 (0.0-0.012) X10*3/uL Nucleated RBC % (auto) 0.0 (0.0-0.2) /100WBC Sodium 143 (135-145) mmol/L Potassium 4.1 (3.3-5.1) mmol/L Chloride 106 (96-108) mmol/L Carbon Dioxide 30 H (22-29) mmol/L Anion Gap 11 L (12-20) BUN 27 H (9-16) mg/dL Creatinine 1.11 (0.5-1.4) mg/dL Estim Creat Clear Calc 68.9 Estimated GFR > 60 Random Glucose 104 (60-115) mg/dL Calcium 9.2 (8.4-10.2) mg/dL Magnesium 2.1 (1.6-2.6) mg/dL Total Bilirubin 0.3 (0.0-1.0) mg/dL Direct Bilirubin < 0.2 (0.0-0.5) mg/dL AST 22 (5-37) U/L ALT 27 (0-40) U/L Alkaline Phosphatase 68 (39-117) U/L Total Protein 6.9 (6.5-8.0) g/dL Albumin 4.0 (3.5-5.0) g/dL Urine Color Urine Appearance Urine pH (5.0-9.0) Ur Specific [place] (1.005-1.025) Urine Protein (Neg-Trace) mg/dL Urine Glucose (UA) (Negative) mg/dL Urine Ketones (Negative) mg/dL Urine Blood (Negative) Urine Nitrite (Negative) Ur Leukocyte Esterase (Negative) Urine RBC (0-2) /HPF Urine WBC (0-5) /HPF Ur Squamous Epith Cells (0-2) /HPF Urine Bacteria (None Seen) Hyaline Casts (0-2) /LPF Urine Opiates Screen (Not Detect) Urine Fentanyl Screen (Not Detect) Ur Barbiturates Screen (Not Detect) Ur Phencyclidine Scrn (Not Detect) Ur Amphetamines Screen (Not Detect) U Benzodiazepines Scrn (Not Detect) Urine Cocaine Screen (Not Detect) U Marijuana (THC) Screen (Not Detect) COVID-19 (DEEPA) Negative (Negative) COVID-19 Clin Com See Note 08/20/22 08/20/22 Range/Units 11:03 11:03 WBC (4.8-10.8) X10*3/uL RBC (4.60-5.80) X10*6/uL Hgb (14.0-18.0) g/dl Hct (42.0-52.0) % MCV (80.0-98.0) fL MCH (27.0-33.0) pg MCHC (31.0-36.0) g/dl RDW (11.0-16.0) % Plt Count (160-400) X10*3/uL MPV (9.4-12.4) fL Immature Gran % (Auto) (0.0-0.4) % Neut % (Auto) (45-73) % Lymph % (Auto) (20-40) % [place] % (Auto) (2-11) % Eos % (Auto) (0-4) % Baso % (Auto) (0-2) % Lymph # (Auto) (1.2-4.9) X10*3/uL [place] # (Auto) (0.1-1.2) X10*3/uL Eos # (Auto) (0.0-0.4) X10*3/uL Baso # (Auto) (0.0-0.2) X10*3/uL Abs Immat Gran (auto) (0.00-0.03) X10*3/uL Absolute Neuts (auto) (2.0-8.3) x10*3/uL Absolute Nucleated RBC (0.0-0.012) X10*3/uL Nucleated RBC % (auto) (0.0-0.2) /100WBC Sodium (135-145) mmol/L Potassium (3.3-5.1) mmol/L Chloride (96-108) mmol/L Carbon Dioxide (22-29) mmol/L Anion Gap (12-20) BUN (9-16) mg/dL Creatinine (0.5-1.4) mg/dL Estim Creat Clear Calc Estimated GFR Random Glucose (60-115) mg/dL Calcium (8.4-10.2) mg/dL Magnesium (1.6-2.6) mg/dL Total Bilirubin (0.0-1.0) mg/dL Direct Bilirubin (0.0-0.5) mg/dL AST (5-37) U/L ALT (0-40) U/L Alkaline Phosphatase (39-117) U/L Total Protein (6.5-8.0) g/dL Albumin (3.5-5.0) g/dL Urine Color Yellow Urine Appearance Clear Urine pH 7.5 (5.0-9.0) Ur Specific [place] 1.010 (1.005-1.025) Urine Protein Trace (Neg-Trace) mg/dL Urine Glucose (UA) Negative (Negative) mg/dL Urine Ketones Negative (Negative) mg/dL Urine Blood Trace H (Negative) Urine Nitrite Negative (Negative) Ur Leukocyte Esterase Negative (Negative) Urine RBC 0-2 (0-2) /HPF Urine WBC 0-5 (0-5) /HPF Ur Squamous Epith Cells 0-2 (0-2) /HPF Urine Bacteria None Seen (None Seen) Hyaline Casts 0-2 (0-2) /LPF Urine Opiates Screen Not Detected (Not Detect) Urine Fentanyl Screen Not Detected (Not Detect) Ur Barbiturates Screen Not Detected (Not Detect) Ur Phencyclidine Scrn Not Detected (Not Detect) Ur Amphetamines Screen Not Detected (Not Detect) U Benzodiazepines Scrn Not Detected (Not Detect) Urine Cocaine Screen Not Detected (Not Detect) U Marijuana (THC) Screen Not Detected (Not Detect) COVID-19 (DEEPA) (Negative) COVID-19 Clin Com <NEIDA Hummel - Last Filed: 08/20/22 17:26> Lab Results 08/20/22 08/20/22 08/20/22 Range/Units 09:30 09:30 09:30 WBC 4.3 L (4.8-10.8) X10*3/uL RBC 4.82 (4.60-5.80) X10*6/uL Hgb 14.2 (14.0-18.0) g/dl Hct 43.5 (42.0-52.0) % MCV 90.2 (80.0-98.0) fL MCH 29.5 (27.0-33.0) pg MCHC 32.6 (31.0-36.0) g/dl RDW 13.2 (11.0-16.0) % Plt Count 179 (160-400) X10*3/uL MPV 9.6 (9.4-12.4) fL Immature Gran % (Auto) 0.2 (0.0-0.4) % Neut % (Auto) 60.1 (45-73) % Lymph % (Auto) 25.6 (20-40) % [place] % (Auto) 11.5 H (2-11) % Eos % (Auto) 2.1 (0-4) % Baso % (Auto) 0.5 (0-2) % Lymph # (Auto) 1.1 L (1.2-4.9) X10*3/uL [place] # (Auto) 0.5 (0.1-1.2) X10*3/uL Eos # (Auto) 0.1 (0.0-0.4) X10*3/uL Baso # (Auto) 0.0 (0.0-0.2) X10*3/uL Abs Immat Gran (auto) 0.01 (0.00-0.03) X10*3/uL Absolute Neuts (auto) 2.6 (2.0-8.3) x10*3/uL Absolute Nucleated RBC 0.000 (0.0-0.012) X10*3/uL Nucleated RBC % (auto) 0.0 (0.0-0.2) /100WBC Sodium 143 (135-145) mmol/L Potassium 4.1 (3.3-5.1) mmol/L Chloride 106 (96-108) mmol/L Carbon Dioxide 30 H (22-29) mmol/L Anion Gap 11 L (12-20) BUN 27 H (9-16) mg/dL Creatinine 1.11 (0.5-1.4) mg/dL Estim Creat Clear Calc 68.9 Estimated GFR > 60 Random Glucose 104 (60-115) mg/dL Calcium 9.2 (8.4-10.2) mg/dL Magnesium 2.1 (1.6-2.6) mg/dL Total Bilirubin 0.3 (0.0-1.0) mg/dL Direct Bilirubin < 0.2 (0.0-0.5) mg/dL AST 22 (5-37) U/L ALT 27 (0-40) U/L Alkaline Phosphatase 68 (39-117) U/L Total Protein 6.9 (6.5-8.0) g/dL Albumin 4.0 (3.5-5.0) g/dL Urine Color Urine Appearance Urine pH (5.0-9.0) Ur Specific [place] (1.005-1.025) Urine Protein (Neg-Trace) mg/dL Urine Glucose (UA) (Negative) mg/dL Urine Ketones (Negative) mg/dL Urine Blood (Negative) Urine Nitrite (Negative) Ur Leukocyte Esterase (Negative) Urine RBC (0-2) /HPF Urine WBC (0-5) /HPF Ur Squamous Epith Cells (0-2) /HPF Urine Bacteria (None Seen) Hyaline Casts (0-2) /LPF Urine Opiates Screen (Not Detect) Urine Fentanyl Screen (Not Detect) Ur Barbiturates Screen (Not Detect) Ur Phencyclidine Scrn (Not Detect) Ur Amphetamines Screen (Not Detect) U Benzodiazepines Scrn (Not Detect) Urine Cocaine Screen (Not Detect) U Marijuana (THC) Screen (Not Detect) COVID-19 (DEEPA) Negative (Negative) COVID-19 Clin Com See Note 08/20/22 08/20/22 Range/Units 11:03 11:03 WBC (4.8-10.8) X10*3/uL RBC (4.60-5.80) X10*6/uL Hgb (14.0-18.0) g/dl Hct (42.0-52.0) % MCV (80.0-98.0) fL MCH (27.0-33.0) pg MCHC (31.0-36.0) g/dl RDW (11.0-16.0) % Plt Count (160-400) X10*3/uL MPV (9.4-12.4) fL Immature Gran % (Auto) (0.0-0.4) % Neut % (Auto) (45-73) % Lymph % (Auto) (20-40) % [place] % (Auto) (2-11) % Eos % (Auto) (0-4) % Baso % (Auto) (0-2) % Lymph # (Auto) (1.2-4.9) X10*3/uL [place] # (Auto) (0.1-1.2) X10*3/uL Eos # (Auto) (0.0-0.4) X10*3/uL Baso # (Auto) (0.0-0.2) X10*3/uL Abs Immat Gran (auto) (0.00-0.03) X10*3/uL Absolute Neuts (auto) (2.0-8.3) x10*3/uL Absolute Nucleated RBC (0.0-0.012) X10*3/uL Nucleated RBC % (auto) (0.0-0.2) /100WBC Sodium (135-145) mmol/L Potassium (3.3-5.1) mmol/L Chloride (96-108) mmol/L Carbon Dioxide (22-29) mmol/L Anion Gap (12-20) BUN (9-16) mg/dL Creatinine (0.5-1.4) mg/dL Estim Creat Clear Calc Estimated GFR Random Glucose (60-115) mg/dL Calcium (8.4-10.2) mg/dL Magnesium (1.6-2.6) mg/dL Total Bilirubin (0.0-1.0) mg/dL Direct Bilirubin (0.0-0.5) mg/dL AST (5-37) U/L ALT (0-40) U/L Alkaline Phosphatase (39-117) U/L Total Protein (6.5-8.0) g/dL Albumin (3.5-5.0) g/dL Urine Color Yellow Urine Appearance Clear Urine pH 7.5 (5.0-9.0) Ur Specific [place] 1.010 (1.005-1.025) Urine Protein Trace (Neg-Trace) mg/dL Urine Glucose (UA) Negative (Negative) mg/dL Urine Ketones Negative (Negative) mg/dL Urine Blood Trace H (Negative) Urine Nitrite Negative (Negative) Ur Leukocyte Esterase Negative (Negative) Urine RBC 0-2 (0-2) /HPF Urine WBC 0-5 (0-5) /HPF Ur Squamous Epith Cells 0-2 (0-2) /HPF Urine Bacteria None Seen (None Seen) Hyaline Casts 0-2 (0-2) /LPF Urine Opiates Screen Not Detected (Not Detect) Urine Fentanyl Screen Not Detected (Not Detect) Ur Barbiturates Screen Not Detected (Not Detect) Ur Phencyclidine Scrn Not Detected (Not Detect) Ur Amphetamines Screen Not Detected (Not Detect) U Benzodiazepines Scrn Not Detected (Not Detect) Urine Cocaine Screen Not Detected (Not Detect) U Marijuana (THC) Screen Not Detected (Not Detect) COVID-19 (DEEPA) (Negative) COVID-19 Clin Com <NEIDA Jarrell - Last Filed: 08/20/22 18:52> ECG Data Attestation: I personally reviewed and interpreted this ECG as follows: <NEIDA Hummel - Last Filed: 08/20/22 17:26> Prior ECG tracings: available for review <NEIDA Hummel - Last Filed: 08/20/22 17:26> Interpretation: EKG sinus bradycardia at a rate of 53. Left bundle-branch block noted. No STEMI. This when compared to prior EKGs sinus rhythm has replaced a ladder. T-wave inversion now in lateral leads <NEIDA Hummel Last Filed: 08/20/22 17:26> Discharge Plan Discharge Clinical Impression: Psychosis, Hallucinations <NEIDA Hummel - Last Filed: 08/20/22 17:26> Patient Disposition: Home, Self-Care <NEIDA Hummel Last Filed: 08/20/22 17:26> Additional Instructions: Take your medications as prescribed. If you were prescribed antibiotics today, it is important that you take your medication to their entirety, do not skip any doses, do not finish them early. Follow-up with your primary care provider this week. Return to the emergency department with new or worsening symptoms. Such as fevers, chills, chest pain, shortness of breath, nausea, vomiting, dizziness, headache, vision changes, lethargy, Suicidal ideation, homicidal ideation, visual or auditory hallucinat In case of emergency call 911 <NEIDA Hummel Last Filed: 08/20/22 17:26> Prescriptions: No Action albuterol sulfate [Ventolin HFA] 90 mcg/actuation Hfa Aerosol Inhaler 2 puff inhalation Q4H PRN (Reason: bronchospasm) Qty: 6.7 0RF donepezil 5 mg Tablet 5 mg PO BEDTIME 30 Days Qty: 30 0RF losartan 50 mg Tablet 50 mg PO DAILY 30 Days Qty: 30 0RF Protocol: Hold for SBP< HOLD for SBP < : 90 divalproex 250 mg Tablet,Delayed Release (Dr/Ec) 250 mg PO BID 30 Days Qty: 60 0RF olanzapine 2.5 mg Tablet 2.5 mg PO BEDTIME 30 Days Qty: 30 0RF trazodone 100 mg Tablet 100 mg PO BEDTIME PRN (Reason: Insomnia) 30 Days Qty: 30 0RF Invega Sustenna 156 mg/mL syringe 156 mg IM QMONTH Qty: 1 0RF tamsulosin [Flomax] 0.4 mg capsule 0.4 mg PO BEDTIME Qty: 90 2RF finasteride 5 mg tablet 5 mg PO DAILY Qty: 90 2RF omeprazole 20 mg capsule,delayed release(DR/EC) 20 mg PO DAILY@0630 levothyroxine 200 mcg tablet 200 mcg PO DAILY@0630 <NEIDA Hummel Last Filed: 08/20/22 17:26> Referrals: [facility] [Provider Group] Samuel Schneider MD [Primary Care Provider] - 2 days <NEIDA Hummel - Last Filed: 08/20/22 17:26>
--- NOTE | 2022-08-20 09:03 | ECG_ITS ---
Test Reason : htn Blood Pressure : / mmHG Vent. Rate : 053 BPM Atrial Rate : 053 BPM P-R Int : 154 ms QRS Dur : 158 ms QT Int : 484 ms P-R-T Axes : 029 004 144 degrees QTc Int : 454 ms Poor data quality Sinus bradycardia Left bundle branch block Abnormal ECG When compared with ECG of 02-AUG-2022 08:21, Sinus rhythm has replaced Atrial flutter Questionable change in QRS axis T wave inversion now evident in Lateral leads Referred By: Anny Tijerina Electronically Signed By:SERGIO NELSON MD
--- NOTE | 2022-08-20 09:04 | PC.NURSE ---
patient a/ox4 . pearrla . lungs clear . breathing even unlabored . heart rate regular at 85 beats per minutes . patient reports being anxious and peurtoricians taking his medication in the night and hearing voices saying more . denies SI or HI says he loves human beings . skin is pink warm and dry . abdomen soft warm and dry . patient ambulated to bathroom on arrival c/o intermittent urination . b;ladder scan after to determine if fully emptying bladder , results zero left in bladder after voiding . provider aware . patient gait is a shuffle needs to be reminded to lift head , bed at lowest position . patient aware of plan of care .
[2022-08-20 09:34] LABS: MANUAL DIFF FLAG NO
[2022-08-20 09:36] LABS: Basophils Percent Auto 0.5 % (0-2); Eosinophils Absolute Auto 0.1 X10*3/uL (0.0-0.4); Eosinophils Percent Auto 2.1 % (0-4); Hematocrit 43.5 % (42.0-52.0); Hemoglobin 14.2 g/dl (14.0-18.0); Imm Gran Abs Auto 0.01 X10*3/uL (0.00-0.03); Imm Gran Pct Auto 0.2 % (0.0-0.4); Lymphocytes Absolute Auto 1.1 X10*3/uL (1.2-4.9); Lymphocytes Percent Auto 25.6 % (20-40); Mean Corpuscular HGB Conc 32.6 g/dl (31.0-36.0); Mean Corpuscular Hemoglobin 29.5 pg (27.0-33.0); Mean Corpuscular Volume 90.2 fL (80.0-98.0); Mean Platelet Volume 9.6 fL (9.4-12.4); Monocytes Absolute Auto 0.5 X10*3/uL (0.1-1.2); Monocytes Percent Auto 11.5 % (2-11); Neutrophils Absolute Auto 2.6 x10*3/uL (2.0-8.3); Neutrophils Percent Auto 60.1 % (45-73); Platelet Count 179 X10*3/uL (160-400); Red Blood Count 4.82 X10*6/uL (4.60-5.80); Red Cell Distribution Width 13.2 % (11.0-16.0); White Blood Count 4.3 X10*3/uL (4.8-10.8)
--- NOTE | 2022-08-20 09:43 | PC.NURSE ---
STEADY GAIT TO THE BATHROOM
[2022-08-20 09:50] LABS: COVID-19 Test Negative (Negative); IDNOW Serial# 9DB6401D
[2022-08-20 10:22] LABS: Alanine Aminotransferase 27 U/L (0-40); Alkaline Phosphatase 68 U/L (39-117); Anion Gap 11 (12-20); Aspartate Amino Transferase 22 U/L (5-37); Bilirubin Direct < 0.2 mg/dL (0.0-0.5); Bilirubin Total 0.3 mg/dL (0.0-1.0); Blood Urea Nitrogen 27 mg/dL (9-16); Calcium 9.2 mg/dL (8.4-10.2); Carbon Dioxide 30 mmol/L (22-29); Chloride 106 mmol/L (96-108); Creatinine Clr Calc Pharmacy 68.9; Estimated Glomerular Filt Rate > 60; Glucose Random 104 mg/dL (60-115); Magnesium 2.1 mg/dL (1.6-2.6); Potassium 4.1 mmol/L (3.3-5.1); Sodium 143 mmol/L (135-145); Total Protein 6.9 g/dL (6.5-8.0)
[2022-08-20 11:15] LABS: Appearance Urine Clear; Color Urine Yellow; Glucose Urine UA Negative (Negative); Leukocyte Esterase Urine Negative (Negative); Nitrite Urine Negative (Negative); PH 7.5 (5.0-9.0); UMIC TRIGGER UACC YES; Urine Blood Trace (Negative); Urine Ketones Negative (Negative); Urine Protein Trace mg/dL (Neg-Trace)
[2022-08-20 11:17] LABS: Bacteria Urine None Seen (None Seen); Hyaline Casts Urine 0-2 /LPF (0-2); RBC Urine 0-2 /HPF (0-2); Squamous Epithelial Cell Urine 0-2 /HPF (0-2); WBC Urine 0-5 /HPF (0-5)
[2022-08-20 11:31] LABS: Amphetamine Screen Urine Not Detected (Not Detect); Barbiturates, Urine Not Detected (Not Detect); Benzodiazepines Screen Urine Not Detected (Not Detect); Cannabinoid Screen Urine Not Detected (Not Detect); Cocaine Screen Urine Not Detected (Not Detect); Fentanyl, urine Not Detected (Not Detect); Opiate Screen Urine Not Detected (Not Detect); Phencyclidine Screen Urine Not Detected (Not Detect)
[2022-08-20] MEDS: OLANZapine 10 MG TABLET PO (12:57)
--- NOTE | 2022-08-20 12:58 | PC.NURSE ---
patient exhibiting increased anxiety ., yelling wanting to leave . patient willing to take oral medication to help with anxiety obtained order for 10 mg of Zyprexa administered as ordered . ordered patient lunch tray and re directed patient to staying to assist with treatment with anxiety and auditory hallucinations . patient aware of plan of care .
--- NOTE | 2022-08-20 14:19 | PHA.MEDREC ---
Pharmacy Consult ? Medication Reconciliation Pharmacy has completed the medication reconciliation.Unable to obtain any information from the patient, med rec done per claim history.
[2022-08-20 17:05] VITALS: BP 172/79; PULSE 58; RESP 16; TEMP 36.6; O2SAT 98
--- NOTE | 2022-08-20 18:53 | MHC.CARE ---
Pt is a 71 year old male known to the Care Team and S1. Pt has a history of Bipolar 1 Disorder, Parkinson Disease, and Psychosis that presented to [facility] ED via EMS c/o anxiety and urinary frequency x unknown amount of time. Pt reports feeling hyper and experiencing auditory hallucinations. Pt reports he wants to go home and feels fine. He denied SI/HI/AVH. T/w spoke with pt's Gabriela Lugo and she reported no concerns with pt returning home. She stated pt receives services from [facility] for home making services 3x per week (Thursday and 1 1/2 hrs, Thursday 3 hrs) HDMs (5 days per wk), and visiting nurse (3x per week) - medication management. Disposition was discussed with Kelly MANUEL and Selena CARRASQUILLO.
--- NOTE | 2022-08-20 19:14 | PC.NURSE ---
ambulance booked for patient's [facility]
--- NOTE | 2022-08-20 20:08 | PC.NURSE ---
this RN escorts patient out to the lobby to wait for his lyft. he states he feels safe for discharge.
== END 2022-08-20 20:09 | disposition home or self-care (01) ==
PROVIDERS: Physician Assistant; Emergency Provider Emergency Medicine; PCP Internal Medicine
DX: F41.1 Generalized anxiety disorder (principal); F31.5 Bipolar disorder, current episode depressed, severe, with psychotic features; Z20.822 Contact with and (suspected) exposure to COVID-19; Z79.899 Other long term (current) drug therapy
CPT/HCPCS: 80048; 80076; 80307; 81001; 83735; 85025; 87635; 93005; 99284

== ENCOUNTER 2022-09-16 13:41 | Emergency (ER) | payer MEDICARE, MEDICAID, SELFPAY ==
--- NOTE | ~2022-09-16 | US_ITS ---
EXAMINATION: US VENOUS ULTRASOUND WITH DOPPLER LOWER EXTREMITY, RIGHT CLINICAL INFORMATION: Edema COMPARISON: None TECHNIQUE: Ultrasound of the deep veins is performed from the hip to the calf with compression sonography and color and pulse Doppler assessment. Spectral analysis with color-flow imaging is performed. FINDINGS: There is normal venous compression and respiratory variation and augmented flow. The visualized common femoral vein, superficial femoral vein, profunda femoral vein, popliteal vein, and the trifurcation region shows no evidence of deep venous thrombosis. There is no significant popliteal fossa cyst. If the patient's symptoms persist, followup ultrasound in 5 days 7 days might be of value to exclude proximal propagation from a non-visualized calf vein. US/US venous duplex LE RT IMPRESSION: No DVT demonstrated in the right lower extremity.
--- NOTE | 2022-09-16 13:49 | ED_ITS ---
HPI - Abdominal Pain General Chief Complaint: Abdominal Pain <NEIDA Hummel - Last Filed: 09/16/22 17:58> Stated Complaint: ABD PAIN <NEIDA Hummel Last Filed: 09/16/22 17:58> Time Seen by Provider: 09/16/22 13:47 <NEIDA Hummel - Last Filed: 09/16/22 17:58> Source: patient and EMS <NEIDA Hummel Last Filed: 09/16/22 17:58> Mode of arrival: EMS <NEIDA Hummel Last Filed: 09/16/22 17:58> History of Present Illness HPI narrative: 71 year old male with PMHx of Bipolar I disorder, Parkinson disease, BPH, Psychosis, diabetes, CAD GERD, HLD, hypothyroid who presents to the ED via EMS c/o?acute on chronic RLQ abdominal pain worsening today. Admits to similar symptoms in the past. Denies fever, chills, nausea, vomiting, diarrhea /constipation, dysuria /hematuria, SOB/CP <NEIDA Hummel - Last Filed: 09/16/22 17:58> MD elicited complaint: abdominal pain <NEIDA Hummel Last Filed: 09/16/22 17:58> Onset (ago): day(s) <NEIDA Hummel - Last Filed: 09/16/22 17:58> Related Data Home Medications: Previous Rx's Medication Instructions Recorded albuterol sulfate 90 mcg/actuation 2 puff inhalation Q4H PRN 01/06/22 aerosol inhaler (Ventolin HFA) bronchospasm #6.7 grams divalproex 250 mg tablet,delayed 250 mg PO BID 30 days #60 tabs 01/06/22 release donepezil 5 mg tablet 5 mg PO BEDTIME 30 days #30 tabs 01/06/22 olanzapine 2.5 mg tablet 2.5 mg PO BEDTIME 30 days #30 tabs 01/06/22 paliperidone palmitate 156 mg/mL 156 mg IM QMONTH #1 mL 01/06/22 intramuscular syringe (Invega Sustenna) trazodone 100 mg tablet 100 mg PO BEDTIME PRN Insomnia 30 01/06/22 days #30 tabs finasteride 5 mg tablet 5 mg PO DAILY #90 tabs 06/13/22 tamsulosin 0.4 mg capsule (Flomax) 0.4 mg PO BEDTIME #90 caps 06/13/22 levothyroxine 200 mcg tablet 200 mcg PO DAILY@0630 90 days #90 08/29/22 tabs losartan 50 mg tablet 50 mg PO DAILY 90 days #90 tabs 08/29/22 omeprazole 20 mg capsule,delayed 20 mg PO DAILY@0630 90 days #90 08/29/22 release caps <NEIDA Hummel Last Filed: 09/16/22 17:58> Allergies/Adverse Reactions: Allergies Allergy/AdvReac Type Severity Reaction Status Date / Time lisinopril [LISINOPRIL] Allergy Intermediate RASH Verified 12/20/21 11:56 <NEIDA Hummel Last Filed: 09/16/22 17:58> Review of Systems Review of Systems Constitutional: No Fever, No Chills, No Night Sweats, No Fatigue, No Malaise ENT/Mouth: No Ear Pain, No Nasal Congestion, No Hoarseness, No sore throat, No Rhinorrhea, No Swallowing Difficulty Eyes: No Eye Pain, No Swelling, No Redness, No Vision Changes Cardiovascular: No Chest Pain, No SOB, No Edema, No Palpitations Respiratory: No Cough, No Sputum, No Dyspnea Gastrointestinal: No Nausea, No Vomiting, No Diarrhea, No Constipation, + Abdominal pain Genitourinary: No Dysuria, No Urinary Frequency, No Hematuria, No Urinary Incontinence/retention, No Flank Pain Musculoskeletal: No joint pain, No Myalgias, No Joint Swelling Skin: No Skin Lesions, No rash Neuro: No Weakness, No Dizziness, No Headache <NEIDA Hummel Last Filed: 09/16/22 17:58> Yes all other systems are reviewed and are negative <NEIDA Hummel Last Filed: 09/16/22 17:58> Constitutional: Reports as per HPI <NEIDA Hummel Last Filed: 09/16/22 17:58> [facility] Past Medical History Attestation statement: The following information was validated with the patient. <NEIDA Hummel Last Filed: 09/16/22 17:58> Medical History: Medical History Abdominal pain, chronic, right lower quadrant Acquired hypothyroidism Allergic rhinitis Anxiety Benign essential hypertension Benign prostatic hyperplasia with urinary obstruction CAD (coronary artery disease) Constipation COPD (chronic obstructive pulmonary disease) Diabetes mellitus GERD (gastroesophageal reflux disease) Insomnia Obesity (BMI 30-39.9) Osteoarthritis Pure hypercholesterolemia Vitamin D deficiency <NEIDA Hummel - Last Filed: 09/16/22 17:58> Surgical History: Surgical History History of arthroscopic knee surgery History of cardiac catheterization History of colectomy History of esophagogastroduodenoscopy (EGD) History of excision of pilonidal cyst History of eye surgery History of skin graft Hx of colonoscopy <NEIDA Hummel - Last Filed: 09/16/22 17:58> Family History Family History: Family History Father Stroke CVD (cerebrovascular disease) Mother Hypertension <NEIDA Hummel - Last Filed: 09/16/22 17:58> Social History Social History: Social History Household Members: None Housing: Apartment Do you presently have visiting nurse or other home services: Yes (Had [facility] ([facility]) and [facility]) Unable to assess alcohol history related to: Refusing to respond Alcohol intake: former Patient Tobacco Use Status: Former Tobacco user Quit Date: long time ago Tobacco use type: Cigarette and Cigar Years Smoked: unknown e-Cigarette/Vaping Use: Never Used Second Hand Smoke Exposure: No Advance Directives: No Advance Directives Information Provided: Yes service: No Current occupational status: retired Sexual orientation: Straight/Heterosexual <NEIDA Hummel - Last Filed: 09/16/22 17:58> Physical Exam ED Vital Signs: Vital Signs - 24 hr 09/16/22 13:58 09/16/22 18:01 09/17/22 00:00 Temperature 98.0 F 97.7 F Pulse Rate 58 54 51 Respiratory Rate 14 16 16 Blood Pressure 173/67 H 173/74 H 161/58 H Pulse Oximetry 98 96 97 Oxygen Delivery Method Room Air Room Air Room Air BMI result Body Mass Index 29.5 <NEIDA Hummel - Last Filed: 09/16/22 17:58> Vital Signs - 24 hr 09/16/22 13:58 09/16/22 18:01 09/17/22 00:00 Temperature 98.0 F 97.7 F Pulse Rate 58 54 51 Respiratory Rate 14 16 16 Blood Pressure 173/67 H 173/74 H 161/58 H Pulse Oximetry 98 96 97 Oxygen Delivery Method Room Air Room Air Room Air BMI result Body Mass Index 29.5 <Chasity Vasquez NP - Last Filed: 09/17/22 00:49> Const General: cooperative, healthy appearing and no acute distress <NEIDA Hummel - Last Filed: 09/16/22 17:58> Orientation/consciousness: patient oriented x3 <NEIDA Hummel - Last Filed: 09/16/22 17:58> Limitations: no limitations <NEIDA Hummel - Last Filed: 09/16/22 17:58> HENMT Head: Yes normal to inspection and Yes atraumatic <NEIDA Hummel - Last Filed: 09/16/22 17:58> Ears: hearing grossly normal bilaterally <NEIDA Hummel - Last Filed: 09/16/22 17:58> General nose exam: Normal external nose present <NEIDA Hummel - Last Filed: 09/16/22 17:58> Face and sinus: Yes normal facial exam <NEIDA Hummel - Last Filed: 09/16/22 17:58> Eyes General: appearance normal, both eyes and all related structures <NEIDA Hummel - Last Filed: 09/16/22 17:58> EOM: EOMs intact bilaterally <NEIDA Hummel - Last Filed: 09/16/22 17:58> Neck Neck: Yes normal visual inspection and Yes no meningeal signs <NEIDA Hummel - Last Filed: 09/16/22 17:58> Resp Effort & Inspection: normal respiratory effort and no respiratory distress <NEIDA Hummel - Last Filed: 09/16/22 17:58> Auscultation: clear to auscultation bilaterally, no crackles, no rales, no rhonchi and no wheezes <Anny Tijerina PA - Last Filed: 09/16/22 17:58> Cardio Rate: regular rate <Anny Poularturot PA - Last Filed: 09/16/22 17:58> Heart sounds: S1 normal heart sound present and S2 normal heart sound present <Anny Tijerina PA - Last Filed: 09/16/22 17:58> GI Inspection: Yes normal to inspection <Anny Tijerina PA - Last Filed: 09/16/22 17:58> Palpation (GI): Soft to palpation, Tenderness to palpation present (GI) in the RLQ; with no rebound tenderness, no guarding and not rigid <Anny Tijerina PA - Last Filed: 09/16/22 17:58> General: Yes no CVA tenderness <Anny Tijerina PA - Last Filed: 09/16/22 17:58> Back/Spine/Pelvis Back: no CVA tenderness <Anny Tijerina PA - Last Filed: 09/16/22 17:58> Skin Rashes: no rashes <Anny Tijerina PA - Last Filed: 09/16/22 17:58> Wounds: no wounds <Anny Tijerina PA - Last Filed: 09/16/22 17:58> Neuro General: patient oriented x3, tone normal and no meningeal signs <Anny Tijerina PA - Last Filed: 09/16/22 17:58> Gait exam (Neuro): Normal gait present <Anny Tijerina PA - Last Filed: 09/16/22 17:58> Extrem Other: mild edema in RLE. No calf ttp <Anny Tijerina PA - Last Filed: 09/16/22 17:58> General: Yes normal to inspection <Anny Tijerina PA - Last Filed: 09/16/22 17:58> Course Course Course Narrative: - labs unremarkable US venous duplex LE RT IMPRESSION: No DVT demonstrated in the right lower extremity. -1723-- patient has refuse CT 2x however when this sports book writer goes to evaluate patient he is agreeable, did not want to be discharged until CT is complete. Patient agreeable at this time, CT informed -1800-- ED care transferred to [facility] pending CT, UA and anticipated discharge home. Patient requesting to eat will p.o. challenge <NEIDA Hummel - Last Fi led: 09/16/22 17:58> - labs unremarkable US venous duplex LE RT IMPRESSION: No DVT demonstrated in the right lower extremity. -1723-- patient has refuse CT 2x however when this sports book writer goes to evaluate patient he is agreeable, did not want to be discharged until CT is complete. Patient agreeable at this time, CT informed -1800-- ED care transferred to [facility] pending CT, UA and anticipated discharge home. Patient requesting to eat will p.o. challenge 00:49 patient continues to refuse CT scans. Multiple attempts by multiple providers. Plan of care is to discharge to facility. <Chasity Vasquez NP - Last Filed: 09/17/22 00:49> Medications Administered Discontinued Medications Generic Name Dose Route Start Last Admin Trade Name Freq PRN Reason Stop Dose Admin Al Hydroxide/Mg Hydroxide 30 ml 09/16/22 13:54 09/16/22 14:39 Magnesium Hydrox/Alum Hydrox 30 Ml Oral.Susp PO 09/16/22 13:55 30 ml ONCE ONE Administration Famotidine 20 mg 09/16/22 13:54 09/16/22 14:38 Famotidine/Pf 20 Mg/2 Ml Vial IVPUSH 09/16/22 13:55 20 mg ONCE ONE Administration Sodium Chloride 1,000 mls @ 999 mls/hr 09/16/22 14:00 09/16/22 16:31 Ns IV 09/16/22 15:00 Infused .Q1H1M YAYA Infusion <NEIDA Hummel - Last Filed: 09/16/22 17:58> Medications Administered Discontinued Medications Generic Name Dose Route Start Last Admin Trade Name Freq PRN Reason Stop Dose Admin Al Hydroxide/Mg Hydroxide 30 ml 09/16/22 13:54 09/16/22 14:39 Magnesium Hydrox/Alum Hydrox 30 Ml Oral.Susp PO 09/16/22 13:55 30 ml ONCE ONE Administration Famotidine 20 mg 09/16/22 13:54 09/16/22 14:38 Famotidine/Pf 20 Mg/2 Ml Vial IVPUSH 09/16/22 13:55 20 mg ONCE ONE Administration Sodium Chloride 1,000 mls @ 999 mls/hr 09/16/22 14:00 09/16/22 16:31 Ns IV 09/16/22 15:00 Infused .Q1H1M YAYA Infusion <Chasity Vasquez NP - Last Filed: 09/17/22 00:49> MDM - Abdominal Pain MDM Narrative Medical decision making narrative: 71 year old male with PMHx of Bipolar I disorder, Parkinson disease, BPH, Psychosis, diabetes, CAD GERD, HLD, hypothyroid who presents to the ED via EMS c/o?acute on chronic RLQ abdominal pain worsening today. on exam vital signs stable, NAD, nontoxic appearing, abdomen soft w/ RLQ tenderness, no rebound or guarding, no CVTA, mild RLE pitting edema noted slightly greater than LLE. Concern for appendicitis vs diverticulitis vs DVT vs peripheral edema vs other infectious etiology. Lower suspicion for ACS/PE or renal stone/ pyelo, pancreatitis or cholecystitis/lithiasis Plan: Labs, UA, venous duplex ultrasound, CT abdomen / pelvis, re-evaluate <NEIDA Hummel - Last Filed: 09/16/22 17:58> Differential Diagnosis Differential diagnosis: Likely abdominal pain, acute appendicitis, diverticulitis, gastroenteritis, gastritis and small bowel obstruction <NEIDA Hummel - Last Filed: 09/16/22 17:58> Medical Records Attestation: I reviewed the patient's medical records. <NEIDA Hummel - Last Filed: 09/16/22 17:58> Lab Data Attestation: I reviewed the patient's lab results. <NEIDA Hummel - Last Filed: 09/16/22 17:58> Result diagrams: : 09/16/22 14:23 09/16/22 14:22 <NEIDA Hummel - Last Filed: 09/16/22 17:58> Labs: Lab Results 09/16/22 09/16/22 09/16/22 Range/Units 14:22 14:22 14:23 WBC 5.6 (4.8-10.8) X10*3/uL RBC 5.08 (4.60-5.80) X10*6/uL Hgb 14.9 (14.0-18.0) g/dl Hct 45.4 (42.0-52.0) % MCV 89.4 (80.0-98.0) fL MCH 29.3 (27.0-33.0) pg MCHC 32.8 (31.0-36.0) g/dl RDW 13.3 (11.0-16.0) % Plt Count TNP MPV Not Reportable Immature Gran % (Auto) 0.2 (0.0-0.4) % Neut % (Auto) 55.3 (45-73) % Lymph % (Auto) 30.0 (20-40) % Clarke % (Auto) 11.5 H (2-11) % Eos % (Auto) 2.3 (0-4) % Baso % (Auto) 0.7 (0-2) % Lymph # (Auto) 1.7 (1.2-4.9) X10*3/uL Clarke # (Auto) 0.6 (0.1-1.2) X10*3/uL Eos # (Auto) 0.1 (0.0-0.4) X10*3/uL Baso # (Auto) 0.0 (0.0-0.2) X10*3/uL Abs Immat Gran (auto) 0.01 (0.00-0.03) X10*3/uL Absolute Neuts (auto) 3.1 (2.0-8.3) x10*3/uL Absolute Nucleated RBC 0.000 (0.0-0.012) X10*3/uL Nucleated RBC % (auto) 0.0 (0.0-0.2) /100WBC Smear Tech's Comments VERIFIED Sodium 140 (135-145) mmol/L Potassium 4.5 (3.3-5.1) mmol/L Chloride 106 (96-108) mmol/L Carbon Dioxide 26 (22-29) mmol/L Anion Gap 13 (12-20) BUN 26 H (9-16) mg/dL Creatinine 1.02 (0.5-1.4) mg/dL Estim Creat Clear Calc 71.8 Estimated GFR > 60 Random Glucose 78 (60-115) mg/dL Calcium 9.1 (8.4-10.2) mg/dL Magnesium 2.1 (1.6-2.6) mg/dL Total Bilirubin 0.4 (0.0-1.0) mg/dL Direct Bilirubin < 0.2 (0.0-0.5) mg/dL AST 28 (5-37) U/L ALT 20 (0-40) U/L Alkaline Phosphatase 71 (39-117) U/L Troponin I High Sens 8.2 (<3.5-35.0) ng/L B-Natriuretic Peptide (<100) pg/mL Total Protein 7.5 (6.5-8.0) g/dL Albumin 4.0 (3.5-5.0) g/dL Lipase 44 (8-78) U/L Urine Color Urine Appearance Urine pH (5.0-9.0) Ur Specific [place] (1.005-1.025) Urine Protein (Neg-Trace) mg/dL Urine Glucose (UA) (Negative) mg/dL Urine Ketones (Negative) mg/dL Urine Blood (Negative) Urine Nitrite (Negative) Ur Leukocyte Esterase (Negative) Urine RBC (0-2) /HPF Urine WBC (0-5) /HPF Ur Squamous Epith Cells (0-2) /HPF Urine Bacteria (None Seen) Hyaline Casts (0-2) /LPF 09/16/22 09/16/22 Range/Units 14:25 18:02 WBC (4.8-10.8) X10*3/uL RBC (4.60-5.80) X10*6/uL Hgb (14.0-18.0) g/dl Hct (42.0-52.0) % MCV (80.0-98.0) fL MCH (27.0-33.0) pg MCHC (31.0-36.0) g/dl RDW (11.0-16.0) % Plt Count MPV Immature Gran % (Auto) (0.0-0.4) % Neut % (Auto) (45-73) % Lymph % (Auto) (20-40) % Clarke % (Auto) (2-11) % Eos % (Auto) (0-4) % Baso % (Auto) (0-2) % Lymph # (Auto) (1.2-4.9) X10*3/uL [place] # (Auto) (0.1-1.2) X10*3/uL Eos # (Auto) (0.0-0.4) X10*3/uL Baso # (Auto) (0.0-0.2) X10*3/uL Abs Immat Gran (auto) (0.00-0.03) X10*3/uL Absolute Neuts (auto) (2.0-8.3) x10*3/uL Absolute Nucleated RBC (0.0-0.012) X10*3/uL Nucleated RBC % (auto) (0.0-0.2) /100WBC Smear Tech's Comments Sodium (135-145) mmol/L Potassium (3.3-5.1) mmol/L Chloride (96-108) mmol/L Carbon Dioxide (22-29) mmol/L Anion Gap (12-20) BUN (9-16) mg/dL Creatinine (0.5-1.4) mg/dL Estim Creat Clear Calc Estimated GFR Random Glucose (60-115) mg/dL Calcium (8.4-10.2) mg/dL Magnesium (1.6-2.6) mg/dL Total Bilirubin (0.0-1.0) mg/dL Direct Bilirubin (0.0-0.5) mg/dL AST (5-37) U/L ALT (0-40) U/L Alkaline Phosphatase (39-117) U/L Troponin I High Sens (<3.5-35.0) ng/L B-Natriuretic Peptide 115 H (<100) pg/mL Total Protein (6.5-8.0) g/dL Albumin (3.5-5.0) g/dL Lipase (8-78) U/L Urine Color Yellow Urine Appearance Clear Urine pH 7.5 (5.0-9.0) Ur Specific [place] 1.010 (1.005-1.025) Urine Protein Trace (Neg-Trace) mg/dL Urine Glucose (UA) Negative (Negative) mg/dL Urine Ketones Negative (Negative) mg/dL Urine Blood Trace H (Negative) Urine Nitrite Negative (Negative) Ur Leukocyte Esterase Negative (Negative) Urine RBC 0-2 (0-2) /HPF Urine WBC 0-5 (0-5) /HPF Ur Squamous Epith Cells 0-2 (0-2) /HPF Urine Bacteria None Seen (None Seen) Hyaline Casts 0-2 (0-2) /LPF <NEIDA Hummel - Last Filed: 09/16/22 17:58> Lab Results 09/16/22 09/16/22 09/16/22 Range/Units 14:22 14:22 14:23 WBC 5.6 (4.8-10.8) X10*3/uL RBC 5.08 (4.60-5.80) X10*6/uL Hgb 14.9 (14.0-18.0) g/dl Hct 45.4 (42.0-52.0) % MCV 89.4 (80.0-98.0) fL MCH 29.3 (27.0-33.0) pg MCHC 32.8 (31.0-36.0) g/dl RDW 13.3 (11.0-16.0) % Plt Count TNP MPV Not Reportable Immature Gran % (Auto) 0.2 (0.0-0.4) % Neut % (Auto) 55.3 (45-73) % Lymph % (Auto) 30.0 (20-40) % Clarke % (Auto) 11.5 H (2-11) % Eos % (Auto) 2.3 (0-4) % Baso % (Auto) 0.7 (0-2) % Lymph # (Auto) 1.7 (1.2-4.9) X10*3/uL Clarke # (Auto) 0.6 (0.1-1.2) X10*3/uL Eos # (Auto) 0.1 (0.0-0.4) X10*3/uL Baso # (Auto) 0.0 (0.0-0.2) X10*3/uL Abs Immat Gran (auto) 0.01 (0.00-0.03) X10*3/uL Absolute Neuts (auto) 3.1 (2.0-8.3) x10*3/uL Absolute Nucleated RBC 0.000 (0.0-0.012) X10*3/uL Nucleated RBC % (auto) 0.0 (0.0-0.2) /100WBC Smear Tech's Comments VERIFIED Sodium 140 (135-145) mmol/L Potassium 4.5 (3.3-5.1) mmol/L Chloride 106 (96-108) mmol/L Carbon Dioxide 26 (22-29) mmol/L Anion Gap 13 (12-20) BUN 26 H (9-16) mg/dL Creatinine 1.02 (0.5-1.4) mg/dL Estim Creat Clear Calc 71.8 Estimated GFR > 60 Random Glucose 78 (60-115) mg/dL Calcium 9.1 (8.4-10.2) mg/dL Magnesium 2.1 (1.6-2.6) mg/dL Total Bilirubin 0.4 (0.0-1.0) mg/dL Direct Bilirubin < 0.2 (0.0-0.5) mg/dL AST 28 (5-37) U/L ALT 20 (0-40) U/L Alkaline Phosphatase 71 (39-117) U/L Troponin I High Sens 8.2 (<3.5-35.0) ng/L B-Natriuretic Peptide (<100) pg/mL Total Protein 7.5 (6.5-8.0) g/dL Albumin 4.0 (3.5-5.0) g/dL Lipase 44 (8-78) U/L Urine Color Urine Appearance Urine pH (5.0-9.0) Ur Specific [place] (1.005-1.025) Urine Protein (Neg-Trace) mg/dL Urine Glucose (UA) (Negative) mg/dL Urine Ketones (Negative) mg/dL Urine Blood (Negative) Urine Nitrite (Negative) Ur Leukocyte Esterase (Negative) Urine RBC (0-2) /HPF Urine WBC (0-5) /HPF Ur Squamous Epith Cells (0-2) /HPF Urine Bacteria (None Seen) Hyaline Casts (0-2) /LPF 09/16/22 09/16/22 Range/Units 14:25 18:02 WBC (4.8-10.8) X10*3/uL RBC (4.60-5.80) X10*6/uL Hgb (14.0-18.0) g/dl Hct (42.0-52.0) % MCV (80.0-98.0) fL MCH (27.0-33.0) pg MCHC (31.0-36.0) g/dl RDW (11.0-16.0) % Plt Count MPV Immature Gran % (Auto) (0.0-0.4) % Neut % (Auto) (45-73) % Lymph % (Auto) (20-40) % Clarke % (Auto) (2-11) % Eos % (Auto) (0-4) % Baso % (Auto) (0-2) % Lymph # (Auto) (1.2-4.9) X10*3/uL [place] # (Auto) (0.1-1.2) X10*3/uL Eos # (Auto) (0.0-0.4) X10*3/uL Baso # (Auto) (0.0-0.2) X10*3/uL Abs Immat Gran (auto) (0.00-0.03) X10*3/uL Absolute Neuts (auto) (2.0-8.3) x10*3/uL Absolute Nucleated RBC (0.0-0.012) X10*3/uL Nucleated RBC % (auto) (0.0-0.2) /100WBC Smear Tech's Comments Sodium (135-145) mmol/L Potassium (3.3-5.1) mmol/L Chloride (96-108) mmol/L Carbon Dioxide (22-29) mmol/L Anion Gap (12-20) BUN (9-16) mg/dL Creatinine (0.5-1.4) mg/dL Estim Creat Clear Calc Estimated GFR Random Glucose (60-115) mg/dL Calcium (8.4-10.2) mg/dL Magnesium (1.6-2.6) mg/dL Total Bilirubin (0.0-1.0) mg/dL Direct Bilirubin (0.0-0.5) mg/dL AST (5-37) U/L ALT (0-40) U/L Alkaline Phosphatase (39-117) U/L Troponin I High Sens (<3.5-35.0) ng/L B-Natriuretic Peptide 115 H (<100) pg/mL Total Protein (6.5-8.0) g/dL Albumin (3.5-5.0) g/dL Lipase (8-78) U/L Urine Color Yellow Urine Appearance Clear Urine pH 7.5 (5.0-9.0) Ur Specific [place] 1.010 (1.005-1.025) Urine Protein Trace (Neg-Trace) mg/dL Urine Glucose (UA) Negative (Negative) mg/dL Urine Ketones Negative (Negative) mg/dL Urine Blood Trace H (Negative) Urine Nitrite Negative (Negative) Ur Leukocyte Esterase Negative (Negative) Urine RBC 0-2 (0-2) /HPF Urine WBC 0-5 (0-5) /HPF Ur Squamous Epith Cells 0-2 (0-2) /HPF Urine Bacteria None Seen (None Seen) Hyaline Casts 0-2 (0-2) /LPF <Chasity Vasquez NP - Last Filed: 09/17/22 00:49> ECG Data Attestation: I personally reviewed and interpreted this ECG as follows: <NEIDA Hummel - Last Filed: 09/16/22 17:58> Discharge Plan Discharge Clinical Impression: Abdominal pain <NEIDA Hummel - Last Filed: 09/16/22 17:58> Patient Disposition: Home, Self-Care <NEIDA Hummel - Last Filed: 09/16/22 17:58> Instructions: Abdominal Pain (ED) <NEIDA Hummel - Last Filed: 09/16/22 17:58> Additional Instructions: your blood work was reassuring today in the emergency department. Please have close follow-up with her doctor. Continue home prescribed medications. If symptoms persist or worsen return to the emergency department <NEIDA Hummel - Last Filed: 09/16/22 17:58> Prescriptions: No Action losartan 50 mg tablet 50 mg PO DAILY 90 Days Qty: 90 0RF Protocol: Hold for SBP< HOLD for SBP < : 90 levothyroxine 200 mcg tablet 200 mcg PO DAILY@0630 90 Days Qty: 90 0RF omeprazole 20 mg capsule,delayed release(DR/EC) 20 mg PO DAILY@0630 90 Days Qty: 90 0RF albuterol sulfate [Ventolin HFA] 90 mcg/actuation Hfa Aerosol Inhaler 2 puff inhalation Q4H PRN (Reason: bronchospasm) Qty: 6.7 0RF donepezil 5 mg Tablet 5 mg PO BEDTIME 30 Days Qty: 30 0RF divalproex 250 mg Tablet,Delayed Release (Dr/Ec) 250 mg PO BID 30 Days Qty: 60 0RF olanzapine 2.5 mg Tablet 2.5 mg PO BEDTIME 30 Days Qty: 30 0RF trazodone 100 mg Tablet 100 mg PO BEDTIME PRN (Reason: Insomnia) 30 Days Qty: 30 0RF Invega Sustenna 156 mg/mL syringe 156 mg IM QMONTH Qty: 1 0RF tamsulosin [Flomax] 0.4 mg capsule 0.4 mg PO BEDTIME Qty: 90 2RF finasteride 5 mg tablet 5 mg PO DAILY Qty: 90 2RF <NEIDA Hummel - Last Filed: 09/16/22 17:58> Referrals: Samuel Schneider MD [Primary Care Provider] - 3 days <NEIDA Hummel - Last Filed: 09/16/22 17:58>
[2022-09-16 13:51] VITALS: BP 173/68; O2SAT 98; BMI 29.5
--- NOTE | 2022-09-16 13:55 | ECG_ITS ---
Test Reason : ABDOMINAL PAIN Blood Pressure : / mmHG Vent. Rate : 054 BPM Atrial Rate : 054 BPM P-R Int : 184 ms QRS Dur : 174 ms QT Int : 530 ms P-R-T Axes : 047 038 230 degrees QTc Int : 502 ms Poor data quality Sinus bradycardia Left bundle branch block Abnormal ECG When compared with ECG of 20-AUG-2022 09:20, QT has lengthened Referred By: Anny Tijerina Electronically Signed By:SREGIO NELSON MD
[2022-09-16 13:58] VITALS: BP 173/67; PULSE 58; RESP 14; TEMP 36.7; O2SAT 98
[2022-09-16 14:32] LABS: Basophils Percent Auto 0.7 % (0-2); Eosinophils Absolute Auto 0.1 X10*3/uL (0.0-0.4); Eosinophils Percent Auto 2.3 % (0-4); Hematocrit 45.4 % (42.0-52.0); Hemoglobin 14.9 g/dl (14.0-18.0); Imm Gran Abs Auto 0.01 X10*3/uL (0.00-0.03); Imm Gran Pct Auto 0.2 % (0.0-0.4); Lymphocytes Absolute Auto 1.7 X10*3/uL (1.2-4.9); MANUAL DIFF FLAG SCAN; Mean Corpuscular HGB Conc 32.8 g/dl (31.0-36.0); Mean Corpuscular Hemoglobin 29.3 pg (27.0-33.0); Mean Corpuscular Volume 89.4 fL (80.0-98.0); Monocytes Absolute Auto 0.6 X10*3/uL (0.1-1.2); Monocytes Percent Auto 11.5 % (2-11); Neutrophils Absolute Auto 3.1 x10*3/uL (2.0-8.3); Neutrophils Percent Auto 55.3 % (45-73); PLT CLUMP 1; Red Blood Count 5.08 X10*6/uL (4.60-5.80); Red Cell Distribution Width 13.3 % (11.0-16.0); SCAN SMEAR FLAG 1; White Blood Count 5.6 X10*3/uL (4.8-10.8)
[2022-09-16] MEDS: Famotidine/PF 20 MG/2 ML VIAL IVPUSH (14:38)
[2022-09-16] MEDS: 0.9 % Sodium Chloride 1,000 ML 999 ML IV (14:38)
[2022-09-16] MEDS: Magnesium Hydrox/Alum Hydrox 30 ML ORAL.SUSP PO (14:39)
[2022-09-16 14:55] LABS: Troponin-I High Sensitivity 8.2 ng/L (<3.5-35.0)
[2022-09-16 14:56] LABS: B Type Natriuretic Peptide 115 pg/mL (<100)
[2022-09-16 15:01] LABS: SLIDE REVIEW VERIFIED
[2022-09-16 15:11] LABS: Alanine Aminotransferase 20 U/L (0-40); Alkaline Phosphatase 71 U/L (39-117); Bilirubin Direct < 0.2 mg/dL (0.0-0.5); Bilirubin Total 0.4 mg/dL (0.0-1.0); Blood Urea Nitrogen 26 mg/dL (9-16); Calcium 9.1 mg/dL (8.4-10.2); Creatinine Clr Calc Pharmacy 71.8; Estimated Glomerular Filt Rate > 60; Glucose Random 78 mg/dL (60-115); Lipase 44 U/L (8-78); Magnesium 2.1 mg/dL (1.6-2.6); Total Protein 7.5 g/dL (6.5-8.0)
[2022-09-16 15:27] LABS: Anion Gap 13 (12-20); Aspartate Amino Transferase 28 U/L (5-37); Carbon Dioxide 26 mmol/L (22-29); Chloride 106 mmol/L (96-108); Potassium 4.5 mmol/L (3.3-5.1); Sodium 140 mmol/L (135-145)
--- OUTSIDE RECORDS SUMMARY | 2022-09-16 15:30 | XMS_ITS ---
:1950 Author Care Team Providers Name Role Phone NANCY LEMUS MD Primary Care Provider [phone] ISABEL TORRES MD Referring Provider [phone] Allergies Code Code System Name Reaction Severity Status Onset NKDA ? Medications Name Status Start Date Stop Date ? ? acetaminophen 300 mg-codeine 30 mg tablet Active ? Not available TK 1 T PO Q 6 H P PRN as needed amitriptyline 25 mg tablet Active ? Not a vailable TK 1 T PO QD HS amlodipine 2.5 mg tablet Active ? Not michael ilable amoxicillin 500 mg capsule Completed ? 12/08 aspirin 81 mg tablet,delayed release Active ? Not available TK 1 T PO D atorvastatin 40 mg tablet Active ? Not av ailable benztropine 1 mg tablet Active ? Not avai lable Colace 50 mg capsule Active ? Not availab le TK 1 C PO DAILY FOR 10 DAYS dicyclomine 20 mg tablet Active ? Not michael ilable TK 1 T PO TID PRN finasteride 5 mg tablet Active ? Not avai lable Flovent HFA 220 mcg/actuation aerosol inhaler Active ? Not available INL 1 PUFF PO BID QD fluticasone propionate 50 mcg/actuation nasal Active ? Not available spray,suspension gabapentin 100 mg capsule Completed ? 2018 gabapentin 300 mg capsule Completed ? 2018 GaviLyte-G 236 gram-22.74 gram-6.74 gram-5.86 gram oral Complete d ? 12/08/2018 solution hydrocodone 5 mg-acetaminophen 325 mg tablet Completed ? 12/08/2018 TK 1 T PO ONCE A DAY IN THE EVENING PRF SEVERE PAIN hydrocortisone 2.5 % topical cream Completed ? 12/08/2018 APPLY TOP AFFECTED AREA TWICE A DAY FOR 7 DAYS Lidocaine Viscous 2 % mucosal solution Active ? Not available lorazepam 1 mg tablet Active ? Not availa ble losartan 50 mg tablet Active ? Not availa ble montelukast 10 mg tablet Completed ? 019 TK 1 T PO D TK 1 T PO QD IN THE SHILOH mupirocin 2 % topical ointment Active ? N ot available olanzapine 10 mg tablet Completed ? 09/03/20 17 TK 1 T PO QD olanzapine 15 mg tablet Completed ? 09/03/20 17 TK 1 T PO HS olanzapine 2.5 mg tablet Active ? Not michael ilable olanzapine 20 mg tablet Active ? Not avai lable olanzapine 5 mg tablet Completed ? 7 TK 1 T PO HS omeprazole 20 mg capsule,delayed release Active ? Not available polyethylene glycol 3350 17 gram/dose oral powder Active ? Not available senna 8.6 mg tablet Active ? Not availabl e TK 2 TS PO HS PRF CONSTIPATION Synthroid 175 mcg tablet Completed ? 017 TK 1 T PO QD Synthroid 200 mcg tablet Active ? Not michael ilable tamsulosin 0.4 mg capsule Active ? Not av ailable tramadol 50 mg tablet Active ? Not availa ble trazodone 100 mg tablet Completed ? 12/08/19 19 Ventolin HFA 90 mcg/actuation aerosol inhaler Completed ? 12/08/2018 Viagra 100 mg tablet Completed ? 12/08/2018 TK 1 T PO ONCE A DAY PRN UTD Virtussin AC 10 mg-100 mg/5 mL oral liquid Completed ? 12/08/2018 TK 5ML PO Q 6 TO 8 H PRN ziprasidone 20 mg capsule Completed ? 2016 TK ONE C PO ONCE A DAY ziprasidone 40 mg capsule Completed ? 2016 TK 1 C PO BID - TAKE WITH FOOD ziprasidone 60 mg capsule Completed ? 2016 ziprasidone 80 mg capsule Completed ? 2016 Problems Name Status Onset Date Source ? Muscle Pain Active 06/18/2017 ? Abdominal Wall Pain Active 06/18/2017 ? Procedures Date Name Performed by ? ? Other Information not avai lable Notes: Cardiac Cath ? Other Information not avai lable Notes: Right arm surgery ? Other Information not avai lable Notes: Abdominal Exploratory surgery ? Appendectomy Information not avai lable ? Other Information not avai lable Notes: Colon surgery Results Lab Results None recorded. Past Encounters None recorded. Social History Tobacco Smoking Status Former Smoker Notes: Quit x 2 0 years Vaccine List None recorded. Plan of Care Reminders Provider Appointments None recorded. ? ? Lab None recorded. ? ? Referral None recorded. ? ? Procedures None recorded. ? ? Surgeries None recorded. ? ? Imaging None recorded. ? ? Vitals 01/05/2019 02:30PM PROCEDURE Height Blood Pressure 5 ft 9.5 in 125/55 mm[Hg] 12/08/2018 02:30PM PROCEDURE Height Weight BMI Blood Pressure 5 ft 9.5 in 189 lbs 27.5 kg/m2 138/93 mm[Hg] 09/03/2017 01:00PM RETURN Height Blood Pressure 5 ft 9.5 in 113/46 mm[Hg] 07/29/2017 01:30PM PROCEDURE Height Blood Pressure 5 ft 9.5 in 143/65 mm[Hg] 07/06/2017 03:00PM PROCEDURE Height Blood Pressure 5 ft 9.5 in 120/61 mm[Hg] 06/17/2017 01:30PM PROCEDURE Height Blood Pressure 5 ft 9.5 in 139/77 mm[Hg] 03/09/2017 01:00PM RETURN Height Blood Pressure 5 ft 9.5 in 155/65 mm[Hg] 02/26/2017 11:00AM NEW PATIENT VISIT Height Weight BMI Blood Pressure 5 ft 9.5 in 200 lbs 29.1 kg/m2 139/69 mm[Hg]
--- OUTSIDE RECORDS SUMMARY | 2022-09-16 15:30 | XMS_ITS | Continuity of Care Document ---
:1950 Author Organization [facility] Address [address] [place] [address]- Care Team Providers Name Role Phone Samuel Schneider MD Primary Care Physician [place] [facility] [place] Date(s[place] 06/17/21 - 06/18/[address] [address]- Encounter Diagnosis Syncope (Final) - 06/17/21 Bradycardia (Final) - 06/17/21 Discharge Disposition: A-D/C Home Attending Physician: Sahil Addison MD Admitting Physician: Angeline Sidhu DO Referring Physician: Not on Staff, Referring MD Allergies, Adverse Reactions, Alerts Substance Reaction Severity Status NKA Active Medications amLODIPine 2.5 mg oral tablet 2.5 mg, 1, tablet, By Mouth, Daily, Refills 0, Maintenance, 10/28/18 21:47:11 EST Start Date: 10/28/18 Status: OrderedamLODIPine 5 mg oral tablet 2.5 mg, Tablet, By Mouth, 06/18/21 9:00:00 EDT Start Date: 06/18/21 Stop Date: 06/18/21 Status: Completedaspirin 81 mg oral delayed release tablet 81 mg, By Mouth, Daily, # 30 tablet, Refills 5, Tot. Refills 5, Maintenance, 10/30/18 14:51:44 EST, Route to Pharmacy Electronically, [id number], [id number] Start Date: 10/30/18 Status: Orderedatorvastatin 40 mg oral tablet 1 tablet = 40 mg, By Mouth, Daily, # 30 tablet, 0 Refills, Maintenance, 12/13/13 13:02:52, Tablet Start Date: 12/13/13 Status: Orderedcetirizine 10 mg oral tablet 1 tablet = 10 mg, By Mouth, Daily, # 30 tablet, 0 Refills, Maintenance, 06/18/21 3:01:00 EDT, Tablet, Partial fill upon patient request if the prescription is for a schedule II opioid drug. Start Date: 06/18/21 Status: Ordereddicyclomine 20 mg oral tablet 1 tablet = 20 mg, By Mouth, 3 times a day, PRN spasms Start Date: 10/28/18 Status: Ordereddivalproex sodium 500 mg oral enteric coated tablet 1 tablet = 500 mg, By Mouth, 2 times a day, # 270 tablet, 0 Refills, Maintenance, 06/18/21 3:28:00 EDT, EC Tablet, Partial fill upon patient request if the prescription is for a schedule II opioid drug. Start Date: 06/18/21 Status: OrderedFlomax 0.4 mg oral capsule See Instructions, Daily, Take at 5:30 PM, 0 Refills, Maintenance, 05/25/14 14:57:01 EDT, Capsule Start Date: 05/25/14 Status: Orderedfluticasone 50 mcg/inh nasal spray SHAKE LQ AND U 1 SPR IEN QD Start Date: 10/28/18 Status: Orderedlevothyroxine 0.2 mg oral tablet 1 tablet = 200 mcg, By Mouth, Daily, Please come to follow up for further refills, # 30 tablet, 1 Refills, Maintenance, 09/02/19 15:51:29 EST, Tablet Start Date: 09/02/19 Status: OrderedLORazepam 1 mg oral tablet 1 tablet = 1 mg, By Mouth, 2 times a day, PRN anxiety Start Date: 10/28/18 Status: Orderedlosartan 50 mg oral tablet 25 mg, 0.5, tablet, By Mouth, Daily Start Date: 10/28/18 Status: Orderedlosartan 50 mg oral tablet 25 mg, Tablet, By Mouth, 06/18/21 9:00:00 EDT Start Date: 06/18/21 Stop Date: 06/18/21 Status: Completedolanzapine 20 mg oral tablet 1 tablet = 20 mg, By Mouth, Daily at bedtime, # 30 tablet, 0 Refills, Maintenance, 10/28/18 21:56:10EST, Tablet Start Date: 10/28/18 Status: Orderedomeprazole 20 mg oral enteric coated capsule 1 capsule = 20 mg, By Mouth, 2 times a day, 0 Refills, Maintenance, 07/27/18 10:42:26 EDT Start Date: 07/27/18 Status: OrderedProAir HFA 90 mcg/inh inhalation aerosol with adapter 1, puffs, Inhalation, Every 6 hours, PRN, # 1 each, Refills 11, Tot. Refills 11, Maintenance, 09/23/16 15:55:32, Inhaler, Route to Pharmacy Electronically, [id number], [id number] Start Date: 09/23/16 Status: OrderedrisperiDONE 1 mg oral tablet 1 mg, 1, tablet, By Mouth, Daily, # 30 tablet, Refills 0, Maintenance, 06/18/21 3:02:00 EDT, Partialfill upon patient request if the prescription is for a schedule II opioid drug. Start Date: 06/18/21 Status: OrderedrisperiDONE 2 mg oral tablet 2 mg, 1, tablet, By Mouth, Daily at bedtime, # 30 tablet, Refills 0, Maintenance, 06/18/21 3:01:00 EDT, Partial fill upon patient request if the prescription is for a schedule II opioid drug. Start Date: 06/18/21 Status: OrderedSenna 8.6 mg oral tablet 17.2 mg, 2, tablet, By Mouth, 2 times a day, PRN, # 100 tablet, Refills 0, Maintenance, for constipation, 10/28/18 21:29:24 EST, Tablet Start Date: 10/28/18 Status: OrderedtraMADol 50 mg oral tablet 1 tablet = 50 mg, By Mouth, 3 times a day, PRN Pain, 0 Refills, Maintenance, 07/27/18 10:42:43 EDT Start Date: 07/27/18 Status: OrderedtraZODone 100 mg oral tablet 100 mg, 1, tablet, By Mouth, Daily at bedtime, PRN, # 180 tablet, Refills 0, Maintenance, Insomnia, 06/18/21 3:01:00 EDT, Partial fill upon patient request if the prescription is for a schedule II opioid drug. Start Date: 06/18/21 Status: Ordered Problem List Condition Effective Dates Status Health Status Informant Abdominal pain(Confirmed) Active Acute Sinusitis(Confirmed) Active Anxiety disorder(Confirmed) Active Asthma(Confirmed) Active Bipolar disorder(Confirmed) Active COPD (chronic obstructive pulmonary Active disease)(Confirmed) Constipation(Confirmed) Active CAD (coronary artery Active disease)(Confirmed) Dysphagia(Confirmed) Active GERD (gastroesophageal reflux Active disease)(Confirmed) Hypertension(Confirmed) Active Hypothyroidism(Confirmed) Active IBS (irritable bowel Active syndrome)(Confirmed) Obstructive sleep apnea(Confirmed) Active Colonic polyp(Confirmed) Active Urinary retention(Confirmed) Active Results Orders for Microbiology Reports Name Date Blood Culture 06/17/21 Blood Culture #2 06/17/21 Microbiology Reports TEST:Blood Culture STATUS:Unauthenticated BODY SITE: SOURCE:Blood COLLECTED DATE/TIME:06/17/21 2:28 PMBlood Culture SPECIMEN DESCRIPTION : BLOOD LEFT WRIST SPECIAL REQUESTS : NONE CULTURE : NO GROWTH AFTER 24 HOURS REPORT STATUS : PRELIMINARY REPORT TEST:Blood Culture, Second Order STATUS:Unauthenticated BODY SITE: SOURCE:Blood COLLECTED DATE/TIME:06/17/21 2:28 PMBlood Culture, Second Order SPECIMEN DESCRIPTION : BLOOD RIGHT AC SPECIAL REQUESTS : NONE CULTURE : NO GROWTH AFTER 24 HOURS REPORT STATUS : PRELIMINARY REPORT Radiology Reports Exam Date Time Procedure Performing Provider Status 06/17/21 3:48 PM Chest Portable Ophelia Abdalla; Ren (Verified) Notes:(Chest Portable) Reason For Exam: Shortness of BreathRESULT: Chest Portable Chest Portable REASON: Shortness of Breath; Clinical Question(s): CHF / CHF COMPARISON: 03/20/2021 FINDINGS: LINES AND TUBES: None. LUNGS AND PLEURA: Clear lungs. Normal pulmonary vascularity. Incidentally noted azygos fissure. No pleural effusion. No pneumothorax. HEART, MEDIASTINUM AND GERARD: Heart is normal in size. Normal mediastinal and hilar contour. BONES AND SOFT TISSUES: No acute abnormality. IMPRESSION: No evidence of acute abnormality. WSN: [id number] Ordering Physician: Ye Hodges Dictated By: George Durham MD Dictated Date/Time: 06/17/21 3:57 pm Reviewed By: George Durham MD Signed By: George Durham MD Signed Date/Time: 06/17/21 3:57 pm Transcribed By: HUGH Transcribed Date/Time: 06/17/21 3:56 pm Vital Signs Most recent to oldest 1 2 3 [Reference Range]: Height 175 cm 175 cm 175 cm (06/18/21 8:23 AM) (06/18/21 4:24 AM) (06/18/21 2:3 8 AM) Weight 90 kg 86.3 kg (06/18/21 2:38 AM) (06/18/21 12:24 AM) Oxygen Saturation [94-100 %] 97 % 97 % 100 % (06/18/21 7:00 AM) (06/18/21 4:24 AM) (06/18/21 2:3 8 AM) Pulse Rate [55-90 bpm] 65 bpm 49 bpm 87 bpm (06/18/21 12:00 PM) *L* (06/18/21 7:00 AM) (06/18/21 8:23 AM) Body Mass Index [18.5-24.99] 29.39 *H* (06/18/21 2:38 AM) Blood Pressure [90-138/55-84 122/64 mm Hg 160/82 mm Hg 160 /82 mm Hg mm Hg] (06/18/21 12:00 PM) *H* *H* (06/18/21 8:11 AM) (06/18/21 8:11 AM) Respiratory Rate [16-30 18 br/min 20 br/min 20 br/mi n br/min] (06/18/21 12:00 PM) (06/18/21 7:00 AM) (06/18/21 4: 24 AM) Temperature [96.8-100.4 DegF] 98.3 DegF 98.1 DegF 98 .2 DegF (06/18/21 12:00 PM) (06/18/21 7:00 AM) (06/18/21 4: 24 AM) Mode of Delivery (Oxygen) Room air Room air Room a ir (06/18/21 12:00 PM) (06/18/21 7:00 AM) (06/18/21 4: 24 AM) Blood pressure sites Arm, right Arm, right Arm, right (06/18/21 12:00 PM) (06/18/21 7:00 AM) (06/18/21 4: 24 AM) Temperature Route Oral Oral Oral (06/18/21 12:00 PM) (06/18/21 7:00 AM) (06/18/21 4: 24 AM) Dry Weight 90 kg (06/18/21 2:38 AM) Weight Obtained Via Bed scale (06/18/21 12:24 AM) Social History Social History Type Response Smoking Status Former smoker entered on: 07/06/15 Sex
--- OUTSIDE RECORDS SUMMARY | 2022-09-16 15:30 | XMS_ITS | Continuity of Care Document ---
:1950 Author Organization [facility] Address [address] [place] [address] Drive [address] [place] [id number]- Care Team Providers Name Role Phone Samuel Schneider MD Primary Care Physician Encounter [facility] [place] Date(s): 04/04/21 - 05/04/[address] [place] [address]- Attending Physician: Vivi Izaguirre Admitting Physician: AdmtrVivi Referring Physician: Admtr, Ar8 Allergies, Adverse Reactions, Alerts Substance Reaction Severity Status NKA Active Medications amLODIPine 2.5 mg oral tablet 2.5 mg, 1, tablet, By Mouth, Daily, Refills 0, Maintenance, 10/28/18 21:47:11 EST Start Date: 10/28/18 Status: Orderedaspirin 81 mg oral delayed release tablet 81 mg, By Mouth, Daily, # 30 tablet, Refills 5, Tot. Refills 5, Maintenance, 10/30/18 14:51:44 EST, Route to Pharmacy Electronically, [id number], [facility] [id number] Start Date: 10/30/18 Status: Orderedatorvastatin 40 mg oral tablet 1 tablet = 40 mg, By Mouth, Daily, # 30 tablet, 0 Refills, Maintenance, 12/13/13 13:02:52, Tablet Start Date: 12/13/13 Status: Ordereddicyclomine 20 mg oral tablet 1 tablet = 20 mg, By Mouth, 3 times a day, PRN spasms Start Date: 10/28/18 Status: OrderedFlomax 0.4 mg oral capsule See [...] By Mouth, Daily Start Date: 10/28/18 Status: Orderedolanzapine 2.5 mg oral tablet 2.5 mg, 1, tablet, By Mouth, Daily at bedtime, # 60 tablet, Refills 0, Maintenance, 10/28/18 21:59:50 EST Start Date: 10/28/18 Status: Orderedolanzapine 20 mg oral tablet 1 tablet = [...] 09/23/16 15:55:32, Inhaler, Route to Pharmacy Electronically, [id number], [facility] [id number] Start Date: 09/23/16 Status: OrderedSenna 8.6 mg oral tablet 17.2 mg, 2, tablet, By Mouth, 2 times a day, PRN, # 100 tablet, Refills 0, Maintenance, for constipation, 10/28/18 21:29:24 EST, Tablet Start Date: 10/28/18 Status: OrderedtraMADol 50 mg oral tablet 1 tablet = 50 mg, By Mouth, 3 times a day, PRN Pain, 0 Refills, Maintenance, 07/27/18 10:42:43 EDT Start Date: 07/27/18 Status: Ordered Problem List Condition Effective Dates [...] Active Colonic polyp(Confirmed) Active Urinary retention(Confirmed) Active Social History Social History Type Response Smoking Status Former smoker entered on: 07/06/15 Sex
--- OUTSIDE RECORDS SUMMARY | 2022-09-16 15:30 | XMS_ITS | Continuity of Care Document ---
:1950 Author Organization [facility] Address [address] [place] [address]- Care Team Providers Name Role Phone Samuel Schneider MD Primary Care Physician Encounter [id number] Date(s): 04/16/21 - 04/16/[address] [address]- Encounter Diagnosis Urinary retention (Final) - 04/16/21 Discharge Disposition: A-D/C Home Attending Physician: Dimitri Reynoso MD Admitting Physician: Dimitri Reynoso MD Referring Physician: Not on Staff, Referring MD [...] 10/30/18 14:51:44 EST, Route to Pharmacy Electronically, [id number], [facility] [id number] Start Date: 10/30/18 Status: Orderedatorvastatin 40 mg [...] 09/23/16 15:55:32, Inhaler, Route to Pharmacy Electronically, [id number], [facility] [id number] Start Date: 09/23/16 Status: OrderedSenna 8.6 mg [...] Active Colonic polyp(Confirmed) Active Urinary retention(Confirmed) Active Vital Signs Most recent to oldest 1 2 3 4 [Reference Range]: Height 180 cm 180 cm 180 cm (04/16/21 7:50 PM) (04/16/21 5:58 PM) (04/16/21 4:44 PM) Oxygen Saturation 100 % 99 % 98 % 97 % [94-100 %] (04/16/21 7:50 PM) (04/16/21 5:58 PM) (04/16/21 4:23 PM) (04/16/21 4:23 PM) Pulse Rate [55-90 bpm] 72 bpm 65 bpm 65 bpm 59 bp m (04/16/21 7:50 PM) (04/16/21 5:58 PM) (04/16/21 4:23 PM) (04/16/21 4:23 PM) Blood Pressure 147/87 mm Hg 160/67 mm Hg 154/77 mm Hg [90-138/55-84 mm Hg] *H* *H* *H* (04/16/21 7:50 PM) (04/16/21 5:58 PM) (04/16/21 4:23 PM) Respiratory Rate [16-30 18 br/min 18 br/min 20 br/min br/min] (04/16/21 7:50 PM) (04/16/21 5:58 PM) (04/16/21 4:23 PM) Temperature [96.8-100.4 98.5 DegF 99.3 DegF DegF] (04/16/21 5:58 PM) (04/16/21 4:23 PM) Mode of Delivery Room air Room air Room air Room air (Oxygen) (04/16/21 7:50 PM) (04/16/21 5:58 PM) (04/16/21 4:23 PM) (04/16/21 4:23 PM) Blood pressure sites Arm, right Arm, left Arm, right (04/16/21 7:50 PM) (04/16/21 5:58 PM) (04/16/21 4:23 PM) Temperature Route Oral Oral (04/16/21 5:58 PM) (04/16/21 4:23 PM) Social History Social History Type Response Smoking Status Former smoker entered on: 07/06/15 Sex
--- OUTSIDE RECORDS SUMMARY | 2022-09-16 15:30 | XMS_ITS | Continuity of Care Document ---
:1950 Author Organization [facility] Address [address] [place] [address]- Care Team Providers Name Role Phone Samuel Schneider MD Primary Care Physician En[place] [facility] [place] Date(s): 08/30/19 - 11/30/19 [facility] [address] [place] [address]- [facility] Attending Physician: Sparkle Chun MD Admitting Physician: Sparkle Chun MD Referring Physician: Samuel Schneider MD Allergies, Adverse Reactions, Alerts Substance Reaction Severity Status NKA Active Medications amLODIPine 2.5 mg oral tablet 2.5 mg, 1, tablet, By Mouth, Daily, Refills 0, Maintenance, 10/28/18 21:47:11 EST Start Date: 10/28/18 Status: Orderedaspirin 81 mg oral delayed release tablet 81 mg, By Mouth, Daily, # 30 tablet, Refills 5, Tot. Refills 5, Maintenance, 10/30/18 14:51:44 EST, Route to Pharmacy Electronically, [id number], [facility] [id number] Start Date: 10/30/18 Status: Orderedatorvastatin 40 mg [...] 09/23/16 15:55:32, Inhaler, Route to Pharmacy Electronically, [id number], [facility] [id number] Start Date: 09/23/16 Status: OrderedSenna 8.6 mg [...]
--- OUTSIDE RECORDS SUMMARY | 2022-09-16 15:30 | XMS_ITS | Continuity of Care Document ---
:1950 Author Organization [facility] Address [address] [place] [address] Drive [address] [place] [address]- Care Team Providers Name Role Phone Samuel Schneider MD Primary Care Physician Encounter [facility] [place] Date(s): 02/07/21 - 05/04/[address] [place] [id number] Attending Physician: Néstor Flores MD Referring Physician: Samuel Schneider MD Allergies, [...] 10/30/18 14:51:44 EST, Route to Pharmacy Electronically, [id number], [facility] [id number] Start Date: 10/30/18 Status: Orderedatorvastatin 40 mg [...] Take at 5:30 PM, 0 Refills, Maintenance, 08/07/14 14:57:01 EDT, Capsule Start Date: 05/25/14 Status: [...] 09/23/16 15:55:32, Inhaler, Route to Pharmacy Electronically, [id number], [facility] [id number] Start Date: 09/23/16 Status: OrderedSenna 8.6 mg [...]
--- OUTSIDE RECORDS SUMMARY | 2022-09-16 15:30 | XMS_ITS | Continuity of Care Document ---
:1950 Author Organization [facility] Address [address] [place] [address]- Care Team Providers Name Role Phone Wyatt CALLEJAS, Samuel Motley Primary Care Physician Encounter [facility] [place] Date(s): 10/31/19 - 11/10/19 [facility] [address] [place] [address] [facility] Attending Physician: Vivi Izaguirre Admitting Physician: Vivi Izaguirre Referring Physician: AdmtrVivi Allergies, Adverse Reactions, Alerts Substance Reaction Severity Status NKA Active Medications amLODIPine 2.5 mg oral tablet 2.5 mg, 1, tablet, By Mouth, Daily, Refills 0, Maintenance, 10/28/18 21:47:11 EST Start Date: 10/28/18 Status: Orderedaspirin 81 mg oral delayed release tablet 81 mg, By Mouth, Daily, # 30 tablet, Refills 5, Tot. Refills 5, Maintenance, 10/30/18 14:51:44 EST, Route to Pharmacy Electronically, [id number], [facility] [id number] Start Date: 10/30/18 Status: Orderedatorvastatin 40 mg [...] 09/23/16 15:55:32, Inhaler, Route to Pharmacy Electronically, [id number], [facility] [id number] Start Date: 09/23/16 Status: OrderedSenna 8.6 mg [...]
--- OUTSIDE RECORDS SUMMARY | 2022-09-16 15:30 | XMS_ITS | Continuity of Care Document ---
:1950 Author Organization [facility] Address [address] [place] [id number]- Care Team Providers Name Role Phone Samuel Schneider MD Primary Care Physician Encounter [facility] [place] Date(s): 03/20/21 - 03/21/[address] [address]- Discharge Disposition: A-D/C Walkout Attending Physician: Ye Mar MD Admitting Physician: Ye Mar MD Referring Physician: Not on Staff, Referring [...] 10/30/18 14:51:44 EST, Route to Pharmacy Electronically, [id number], [facility] [id number] Start Date: 10/30/18 Status: Orderedatorvastatin 40 mg [...] 09/23/16 15:55:32, Inhaler, Route to Pharmacy Electronically, [id number], [facility] [id number] Start Date: 09/23/16 Status: OrderedSenna 8.6 mg [...] Colonic polyp(Confirmed) Active Urinary retention(Confirmed) Active Results Radiology Reports Exam Date Time Procedure Performing Provider Status 03/20/21 9:35 PM Chest 2 Views Frontal and Lat Donta Turner (Verified) Notes:(Chest 2 Views Frontal and Lat) Reason For Exam: Shortness of Breath RESULT: Chest 2 Views Frontal and Lat Chest 2 Views Frontal and Lat Refer to EMR; Hx of Present Illness: Pt reports 3 week hx of a growth in my mouth . Pt sts it wontheal...I think its infected . no fever or chills; COMPARISON: 2016 FINDINGS: LINES AND TUBES: None. LUNGS AND PLEURA: Clear lungs. Normal pulmonary vascularity. Azygos lobe. No pleural effusion. No pneumothorax. HEART, MEDIASTINUM AND GERARD: Heart is normal in size. Normal upper mediastinal and hilar contour. BONES AND SOFT TISSUES: No acute abnormality. IMPRESSION: No acute abnormality. WSN: [id number] Ordering Physician: Allen Valladares Dictated By: Cem Fair DO Dictated Date/Time: 03/20/21 9:38 pm Reviewed By: Cem Fair DO Signed By: Cem Fair DO Signed Date/Time: 03/20/21 9:38 pm Transcribed By: HUGH Transcribed Date/Time: 03/20/21 9:37 pm Vital Signs Most recent to oldest [Reference 1 2 3 Range]: Oxygen Saturation [94-100 %] 100 % 100 % 96 % (03/21/21 12:40 AM) (03/20/21 7:44 PM) (03/20/21 2:22 PM) Pulse Rate [55-90 bpm] 74 bpm 56 bpm 51 bpm (03/21/21 12:40 AM) (03/20/21 7:44 PM) *L* (03/20/21 2:22 PM) Blood Pressure [90-138/55-84 mm 133/61 mm Hg 153/85 mm Hg 141/74 mm Hg Hg] (03/21/21 12:40 AM) *H* *H* (03/20/21 7:44 PM) (03/20/21 2:22 PM ) Respiratory Rate [16-30 br/min] 18 br/min 18 br/min 20 br/min (03/21/21 12:40 AM) (03/20/21 7:44 PM) (03/20/21 2:22 PM) Temperature [96.8-100.4 DegF] 97.7 DegF 98.2 DegF 99 .2 DegF (03/21/21 12:40 AM) (03/20/21 7:44 PM) (03/20/21 2:22 PM) Mode of Delivery (Oxygen) room air Room air Room a ir (03/21/21 12:40 AM) (03/20/21 7:44 PM) (03/20/21 2:22 PM) Blood pressure sites Arm, left Arm, left Arm, right (03/21/21 12:40 AM) (03/20/21 7:44 PM) (03/20/21 2:22 PM) Temperature Route Oral Oral Oral (03/21/21 12:40 AM) (03/20/21 7:44 PM) (03/20/21 2:22 PM) Social History Social History Type Response Smoking Status Former smoker entered on: 07/06/15 Sex
[2022-09-16 18:01] VITALS: BP 173/74; PULSE 54; RESP 16; O2SAT 96
[2022-09-16 18:12] LABS: Appearance Urine Clear; Color Urine Yellow; Glucose Urine UA Negative (Negative); Leukocyte Esterase Urine Negative (Negative); Nitrite Urine Negative (Negative); PH 7.5 (5.0-9.0); UMIC TRIGGER UACC YES; Urine Blood Trace (Negative); Urine Ketones Negative (Negative); Urine Protein Trace mg/dL (Neg-Trace)
[2022-09-16 18:53] LABS: Bacteria Urine None Seen (None Seen); Hyaline Casts Urine 0-2 /LPF (0-2); RBC Urine 0-2 /HPF (0-2); Squamous Epithelial Cell Urine 0-2 /HPF (0-2); WBC Urine 0-5 /HPF (0-5)
[2022-09-17] VITALS: BP 161/58; PULSE 51; RESP 16; TEMP 36.5; O2SAT 97
== END 2022-09-17 05:58 | disposition home or self-care (01) ==
PROVIDERS: Physician Assistant; Emergency Provider Internal Medicine; PCP Internal Medicine
DX: R10.9 Unspecified abdominal pain (principal); R60.0 Localized edema; R06.02 Shortness of breath; I25.10 Atherosclerotic heart disease of native coronary artery without angina pectoris; Z79.899 Other long term (current) drug therapy; Z20.822 Contact with and (suspected) exposure to COVID-19; Z87.891 Personal history of nicotine dependence
CPT/HCPCS: 36415; 80048; 80076; 81001; 83690; 83735; 83880; 84484; 85025; 93005; 93971; 96361; 96374; 99284; 99285

== ENCOUNTER 2022-11-23 01:02 | Emergency (ER) | payer MEDICARE, MEDICAID, SELFPAY ==
--- NOTE | ~2022-11-23 | XR_ITS ---
EXAMINATION: XR KNEE, LEFT CLINICAL INFORMATION: Pain COMPARISON: 12/29/2014 TECHNIQUE: Four views of the left knee. FINDINGS: Total knee arthroplasty hardware components appear well-seated and in anatomic alignment. No acute fracture is seen. There are scattered vascular calcifications. No significant effusion. XR/XR knee LT 3V IMPRESSION: Total knee arthroplasty without acute findings.
[2022-11-23 01:07] VITALS: BP 172/98; BP 180/84; PULSE 62; PULSE 72; RESP 18; TEMP 36.6; O2SAT 98; O2SAT 99; BMI 29.1
[2022-11-23 02:00] VITALS: RESP 14
--- NOTE | 2022-11-23 02:04 | ED.LOWEXIN ---
HPI - Extremity Injury (Lower) General Chief Complaint: Extremity Injury, Lower Stated Complaint: KNEE PAIN Time Seen by Provider: 11/23/22 01:38 Source: patient Mode of arrival: EMS History of Present Illness HPI Narrative: 72-year-old male arrives via EMS with complaints of left knee pain and denies any associated fever or chills or traumatic injury to the knee. He has had a knee replacement several years ago. Related Data Previous Rx's Medication Instructions Recorded albuterol sulfate 90 mcg/actuation 2 puff inhalation Q4H PRN 01/06/22 aerosol inhaler (Ventolin HFA) bronchospasm #6.7 grams divalproex 250 mg tablet,delayed 250 mg PO BID 30 days #60 tabs 01/06/22 release donepezil 5 mg tablet 5 mg PO BEDTIME 30 days #30 tabs 01/06/22 olanzapine 2.5 mg tablet 2.5 mg PO BEDTIME 30 days #30 tabs 01/06/22 paliperidone palmitate 156 mg/mL 156 mg IM QMONTH #1 mL 01/06/22 intramuscular syringe (Invega Sustenna) trazodone 100 mg tablet 100 mg PO BEDTIME PRN Insomnia 30 01/06/22 days #30 tabs finasteride 5 mg tablet 5 mg PO DAILY #90 tabs 06/13/22 tamsulosin 0.4 mg capsule (Flomax) 0.4 mg PO BEDTIME #90 caps 06/13/22 levothyroxine 200 mcg tablet 200 mcg PO DAILY@0630 90 days #90 08/29/22 tabs omeprazole 20 mg capsule,delayed 20 mg PO DAILY@0630 90 days #90 08/29/22 release caps losartan 50 mg tablet 50 mg PO DAILY 90 days #90 tabs 11/21/22 Allergies Allergy/AdvReac Type Severity Reaction Status Date / Time lisinopril [LISINOPRIL] Allergy Intermediate RASH Verified 12/20/21 11:56 Review of Systems Review of Systems: Pertinent positives and negatives as stated in HPI PMFSH Past Medical History Source: nursing notes reviewed Medical History Abdominal pain, chronic, right lower quadrant Acquired hypothyroidism Allergic rhinitis Anxiety Benign essential hypertension Benign prostatic hyperplasia with urinary obstruction CAD (coronary artery disease) Constipation COPD (chronic obstructive pulmonary disease) Diabetes mellitus GERD (gastroesophageal reflux disease) Insomnia Obesity (BMI 30-39.9) Osteoarthritis Pure hypercholesterolemia Vitamin D deficiency Surgical History History of arthroscopic knee surgery History of cardiac catheterization History of colectomy History of esophagogastroduodenoscopy (EGD) History of excision of pilonidal cyst History of eye surgery History of skin graft Hx of colonoscopy Family History Family History Father Stroke CVD (cerebrovascular disease) Mother Hypertension Social History Social History Household Members: None Housing: Apartment Do you presently have visiting nurse or other home services: Yes (Had [facility]) and [facility]) Unable to assess alcohol history related to: Refusing to respond Alcohol intake: former Patient Tobacco Use Status: Former Tobacco user Quit Date: long time ago Tobacco use type: Cigarette and Cigar Years Smoked: unknown e-Cigarette/Vaping Use: Never Used Second Hand Smoke Exposure: No Advance Directives: No service: No Current occupational status: retired Sexual orientation: Straight/Heterosexual Physical Exam Vital Signs: Vital Signs: Last Vital Signs Temp 97.8 F 11/23/22 01:07 Pulse 62 11/23/22 01:07 Resp 18 11/23/22 01:07 BP 180/84 H 11/23/22 01:07 Pulse Ox 98 11/23/22 01:07 O2 Del Method 11/23/22 01:07 BMI result Body Mass Index 29.1 VITAL SIGNS: Reviewed. GENERAL: Well developed, well nourished, in no acute distress. HEAD: Normocephalic/atraumatic EYES: PERRLA, EOMI LUNGS: Normal breath sounds. No adventitious sounds or accessory muscle use. SpO2<98> CARDIOVASCULAR: Regular rate and rhythm without noted murmurs ABDOMEN: Soft, non-tender, non-distended with bowel sounds. MUSCULOSKELETAL: No tenderness, deformities, or effusions noted on gross inspection. EXTREMITIES: No cyanosis, clubbing or edema; LEFT KNEE: There is no erythema/induration/edema, patient is noted to have full range of motion at that left knee. SKIN: Inspection of the skin reveals no rashes NEUROLOGIC: Alert and oriented x 3. Strength and sensation to light touch were grossly intact x 4. Medications Administered Discontinued Medications Generic Name Dose Route Start Last Admin Trade Name Freq PRN Reason Stop Dose Admin Acetaminophen 975 mg 11/23/22 01:58 11/23/22 02:41 Acetaminophen 325 Mg Tablet PO 11/23/22 01:59 975 mg ONCE ONE Administration Ibuprofen 400 mg 11/23/22 01:58 11/23/22 02:41 Ibuprofen 400 Mg Tablet PO 11/23/22 01:59 400 mg ONCE ONE Administration Medical Decision Making Medical Decision Making MDM Narrative: 72-year-old male with suspected osteoarthritis type knee pain as there is no evidence of acute infection. Will obtain chest x-ray and administer combination analgesics. Review of investigations and my interpretation is that patient has arthritis type pain and received combination analgesics as well as an Dawit wrap. On re-evaluation patient reports improvement of his pain. Differential Diagnosis Differential Diagnoses: The differential diagnosis associated with the presentation includes Please see the discussion above Radiology Impression Radiologist Impression: My interpretation is in agreement with radiology's impression of the imaging study. External Record Review External record reviewed: Outpatient record and Prior outpatient labs Discharge Plan Discharge Clinical Impression: Arthralgia of knee, left Patient Disposition: Home, Self-Care Instructions: Knee Pain (ED), Arthralgia (ED) Additional Instructions: 1. Resume all home medications as prescribed. 2. I recommend that you use [id number] Tylenol/ibuprofen as needed for pain control. In addition, I would use the Dawit wrap for support. 3. Follow-up with your primary care provider Thursday morning. Return to the ER for any worsening symptoms. Prescriptions: No Action levothyroxine 200 mcg tablet 200 mcg PO DAILY@0630 90 Days Qty: 90 0RF omeprazole 20 mg capsule,delayed release(DR/EC) 20 mg PO DAILY@0630 90 Days Qty: 90 0RF losartan 50 mg tablet 50 mg PO DAILY 90 Days Qty: 90 0RF Protocol: Hold for SBP< HOLD for SBP < : 90 albuterol sulfate [Ventolin HFA] 90 mcg/actuation Hfa Aerosol Inhaler 2 puff inhalation Q4H PRN (Reason: bronchospasm) Qty: 6.7 0RF donepezil 5 mg Tablet 5 mg PO BEDTIME 30 Days Qty: 30 0RF divalproex 250 mg Tablet,Delayed Release (Dr/Ec) 250 mg PO BID 30 Days Qty: 60 0RF olanzapine 2.5 mg Tablet 2.5 mg PO BEDTIME 30 Days Qty: 30 0RF trazodone 100 mg Tablet 100 mg PO BEDTIME PRN (Reason: Insomnia) 30 Days Qty: 30 0RF Invega Sustenna 156 mg/mL syringe 156 mg IM QMONTH Qty: 1 0RF tamsulosin [Flomax] 0.4 mg capsule 0.4 mg PO BEDTIME Qty: 90 2RF finasteride 5 mg tablet 5 mg PO DAILY Qty: 90 2RF Referrals: Samuel Schneider MD [Primary Care Provider] -
[2022-11-23] MEDS: Ibuprofen 400 MG TABLET PO (02:41)
[2022-11-23] MEDS: Acetaminophen 325 MG TABLET 975 MG PO (02:41)
[2022-11-23 04:00] VITALS: RESP 16
[2022-11-23 06:00] VITALS: BP 168/78; PULSE 55; RESP 14; TEMP 37.1; O2SAT 100
[2022-11-23 08:24] VITALS: BP 183/76; PULSE 58; RESP 14; TEMP 37; O2SAT 97
--- NOTE | 2022-11-23 08:42 | PC.NURSE ---
pt ambulated to the bathroom with assist. Pauly from [facility] called to check on patient as she had received a call regarding this patient she has his mother Gabriela as a contact at [phone]
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
--- NOTE | 2022-11-23 12:55 | PC.NURSE ---
continues with slow steady gait to bathroom
== END 2022-11-23 13:41 | disposition home or self-care (01) ==
PROVIDERS: Emergency Provider Student in an Organized Health Care Education/Training Program; PCP Internal Medicine
DX: M25.562 Pain in left knee (principal); Z79.899 Other long term (current) drug therapy
CPT/HCPCS: 73562; 99284

== ENCOUNTER 2023-02-05 06:35 | Emergency (ER) | payer MEDICARE, MEDICAID, SELFPAY ==
--- NOTE | ~2023-02-05 | CT_ITS ---
EXAMINATION: CT CHEST WITH IV CONTRAST CT ABDOMEN AND PELVIS WITH IV CONTRAST CLINICAL INFORMATION: Abdominal pain and failure to thrive. Evaluate for pneumonia. COMPARISON: CT abdomen and pelvis from 08/02/2022. TECHNIQUE: Multidetector CT imaging examination of the chest, abdomen and pelvis was performed with intravenous administration of 85 mL Omnipaque 350. Axial images are displayed at 0.6 mm and 5 mm slice thickness. Coronal and sagittal reformatted images were generated at the technologist's workstation and submitted for review. This CT examination was performed using dose optimization techniques as appropriate, variously including the following: *Automated exposure control *Adjustment of mA and/or kV according to patient size (this includes techniques or standardized protocols for targeted exams where dose is matched to indication/reason for exam; i.e. extremities or head) *Use of iterative reconstruction technique DLP: The patient has undergone multiple CT exams (chest, abdomen, pelvis and head). The total DLP for all of these exams is 2141 mGy-cm FINDINGS: CHEST - LUNGS AND PLEURA: Trachea and central airways are widely patent and normal in caliber. Azygos fissure of right upper lobe. Small calcified granuloma in the medial segment of the right middle lobe. No suspicious lung nodule, mass or consolidation. No pleural effusion. Linear opacities of mild atelectasis in each lower lobe. MEDIASTINUM/LOWER NECK: The heart size is normal. Small pericardial effusion is present. There is atherosclerotic calcification of left circumflex and left anterior ascending coronary arteries. Thoracic aorta atherosclerosis without aneurysm or dissection. Pulmonary arteries are normal in caliber. No evidence of a central pulmonary embolism. The esophagus has normal wall thickness. Thyroid gland is not well seen and is likely chronically severely atrophied. LYMPHATICS: No pathologic sized lymph nodes. CHEST WALL/BONES OF THORAX: No acute findings within the visualized degenerated lower cervical or thoracic spine. Thoracic vertebra have well preserved height and alignment. No suspicious osseous abnormality. Osteoarthritis of sternoclavicular and left glenohumeral joints. No chest wall mass. ABDOMEN AND PELVIS - HEPATOBILIARY: Liver has normal size and contour. There appears to be focal steatosis in the left lobe adjacent to the falciform ligament. No suspicious liver lesion. Gallbladder is unremarkable. No dilated bile ducts. PANCREAS: No edema, mass or pancreatic ductal dilatation. SPLEEN: Normal. ADRENAL GLANDS: Normal. KIDNEYS AND URETERS: Kidneys are normal in size and enhance symmetrically. No renal mass. No nephrolithiasis or hydronephrosis. BOWEL AND PERITONEUM: No dilated loops of bowel. No wall thickening at site of enterocolonic anastomosis in the right abdomen. Moderate amount fecal material is present within the colon. Query if there is any history of constipation. No pericolonic fat stranding. There are a few diverticula of the colon without evidence of diverticulitis. No abdominal free fluid or free air. ABDOMINAL WALL: Unremarkable. VESSELS: There is atherosclerotic calcification of the abdominal aorta and iliac arteries without aneurysm. LYMPH NODES: No pathologic sized lymph nodes in the abdomen or pelvis. No inguinal lymphadenopathy. BLADDER AND PELVIC VISCERA: Prostate gland and urinary bladder unremarkable. No pelvic mass. OTHER MUSCULOSKELETAL: Lumbar vertebra have normal height and alignment. Multilevel vacuum disc degenerative changes of the lumbar spine. Facet osteoarthritis of the lumbar spine is worst at the L4-L5 and L5-S1 levels. Right iliac bone island is noted. CT/CT abdomen pelvis w IV con IMPRESSION: * No evidence of pneumonia, lung mass or lymphadenopathy. * Atherosclerosis of coronary arteries and thoracoabdominal aorta without aortic aneurysm. * Small pericardial effusion is noted. * No evidence of bowel wall thickening at site of enterocolonic anastomosis. No imaging evidence of an abdominal malignancy.
--- NOTE | ~2023-02-05 | CT_ITS ---
EXAMINATION: CT HEAD WITHOUT CONTRAST CLINICAL INFORMATION: Failure to thrive COMPARISON: 05/09/2022 TECHNIQUE: Contiguous axial imaging was performed from the skull base to vertex without intravenous contrast. This CT examination was performed using dose optimization techniques as appropriate, variously including the following: * Automated exposure control * Adjustment of mA and/or kV according to patient size (this includes techniques or standardized protocols for targeted exams where dose is matched to indication/reason for exam; i.e. extremities or head) Use of iterative reconstruction technique DLP: 2141 mGy-cm in conjunction with the chest, abdomen, pelvis FINDINGS: There is no evidence of acute intracranial hemorrhage or territorial infarction. No abnormal mass effect or midline shift is seen. Alan to white matter differentiation is well preserved. No extra-axial fluid collections are identified. No hydrocephalus. Proportional prominence of the ventricles and sulcal spaces is consistent with mild volume loss. Patchy periventricular and deep white matter hypoattenuation is consistent with mild small vessel ischemic changes. The osseous structures and soft tissues are normal. The mastoid air cells and visualized portions of the paranasal sinuses are well aerated. CT/CT head/brain wo IV con IMPRESSION: No acute intracranial pathology. Mild volume loss with small vessel ischemic change.
--- NOTE | 2023-02-05 06:44 | ECG_ITS ---
Test Reason : CAD Blood Pressure : / mmHG Vent. Rate : 052 BPM Atrial Rate : 052 BPM P-R Int : 184 ms QRS Dur : 148 ms QT Int : 508 ms P-R-T Axes : 037 013 202 degrees QTc Int : 472 ms Artifact in tracing Sinus bradycardia Left bundle branch block Abnormal ECG When compared with ECG of 16-SEP-2022 14:28, No significant changes seen Referred By: Mary Iraheta Electronically Signed By:ELI LOBO
[2023-02-05 06:45] VITALS: BP 152/94; BP 168/76; PULSE 56; PULSE 58; RESP 18; TEMP 36.8; O2SAT 97; O2SAT 98; BMI 29.5
--- NOTE | 2023-02-05 07:03 | ED_ITS ---
HPI - General Adult General Chief complaint: General Medical Stated complaint: Failure to thrive Time Seen by Provider: 02/05/23 06:48 Source: patient Mode of arrival: ambulatory Limitations: no limitations History of Present Illness HPI narrative: 72 yold male with pmh of dementia, COPD, hypercholesterolemia, GERD, Parkinsons, Diabetes, BPH, Bipolar presents to the ED for crusting in his eyes, constipations, right lower quadrant pain, and states President kely is his uncle and told him not to take his meds. patient denies any suicidal or homicidal ideation. Patient denies any chest pain or shortness of breath. As per nurses this patient's baseline in terms laspe in time and making odd statements siuch as PResident kely is his uncle. Patient lives withs his 93 yold mother. Patient also states that he is very anxious/nervous. Patient states that multiple times. Related Data Home Medications Medication Instructions Recorded Confirmed atorvastatin 40 mg tablet 40 mg PO BEDTIME 11/23/22 02/05/23 dicyclomine 20 mg tablet 20 mg PO TID PRN Gastrointestinal 11/23/22 02/05/23 Spasms Or Cramping fluticasone propionate 50 1 spray intranasal BID 11/23/22 02/05/23 mcg/actuation nasal spray,suspension ibuprofen 600 mg tablet 600 mg PO Q6H PRN Pain 11/23/22 02/05/23 pramipexole 0.125 mg tablet 0.125 mg PO TID 11/23/22 02/05/23 Previous Rx's Medication Instructions Recorded albuterol sulfate 90 mcg/actuation 2 puff inhalation Q4H PRN 01/06/22 aerosol inhaler (Ventolin HFA) bronchospasm #6.7 grams divalproex 250 mg tablet,delayed 250 mg PO BID 30 days #60 tabs 01/06/22 release donepezil 5 mg tablet 5 mg PO BEDTIME 30 days #30 tabs 01/06/22 olanzapine 2.5 mg tablet 2.5 mg PO BEDTIME 30 days #30 tabs 01/06/22 paliperidone palmitate 156 mg/mL 156 mg IM QMONTH #1 mL 01/06/22 intramuscular syringe (Invega Sustenna) trazodone 100 mg tablet 100 mg PO BEDTIME PRN Insomnia 30 01/06/22 days #30 tabs finasteride 5 mg tablet 5 mg PO DAILY #90 tabs 06/13/22 tamsulosin 0.4 mg capsule (Flomax) 0.4 mg PO BEDTIME #90 caps 06/13/22 levothyroxine 200 mcg tablet 200 mcg PO DAILY@0630 90 days #90 08/29/22 tabs omeprazole 20 mg capsule,delayed 20 mg PO DAILY@0630 90 days #90 08/29/22 release caps losartan 50 mg tablet 50 mg PO DAILY 90 days #90 tabs 11/21/22 Allergies Allergy/AdvReac Type Severity Reaction Status Date / Time lisinopril [LISINOPRIL] Allergy Intermediate RASH Verified 12/20/21 11:56 Review of Systems Review of Systems: Crusting in both eyes, constipation, and not taking his meds. Yes all other systems are reviewed and are negative [facility] Past Medical History Medical History Abdominal pain, chronic, right lower quadrant Acquired hypothyroidism Allergic rhinitis Anxiety Benign essential hypertension Benign prostatic hyperplasia with urinary obstruction CAD (coronary artery disease) Constipation COPD (chronic obstructive pulmonary disease) Diabetes mellitus GERD (gastroesophageal reflux disease) Insomnia Obesity (BMI 30-39.9) Osteoarthritis Pure hypercholesterolemia Vitamin D deficiency Surgical History History of arthroscopic knee surgery History of cardiac catheterization History of colectomy History of esophagogastroduodenoscopy (EGD) History of excision of pilonidal cyst History of eye surgery History of skin graft Hx of colonoscopy Family History Family History Father Stroke CVD (cerebrovascular disease) Mother Hypertension Social History Social History Household Members: None Housing: Apartment Do you presently have visiting nurse or other home services: Yes (Had Sunil Case ([facility]) and [facility]) Unable to assess alcohol history related to: Refusing to respond Alcohol intake: never Patient Tobacco Use Status: Former Tobacco user Quit Date: long time ago Tobacco use type: Cigarette and Cigar Years Smoked: unknown Smoked in Last 30 Days: No e-Cigarette/Vaping Use: Never Used Second Hand Smoke Exposure: No Advance Directives: Yes Advance Directives Information Provided: No Advance Directives on File: No service: No Current occupational status: retired Sexual orientation: Straight/Heterosexual Physical Exam ED Vital Signs: Vital Signs - 24 hr 02/05/23 06:45 02/05/23 07:47 02/05/23 07:56 Temperature 98.2 F 97.7 F 97.7 F Pulse Rate 56 54 49 L Respiratory Rate 18 14 12 Blood Pressure 168/76 H 162/94 H 158/74 H Pulse Oximetry 97 96 97 Oxygen Delivery Method Room Air Room Air Room Air 02/05/23 16:00 Temperature 97.6 F Pulse Rate 50 Respiratory Rate 18 Blood Pressure 147/61 H Pulse Oximetry 97 Oxygen Delivery Method Room Air BMI result Body Mass Index 29.5 Const General: cooperative, healthy appearing, comfortable, no acute distress, well developed, alert, awake and Physically active Orientation/consciousness: oriented to person, oriented to place, oriented to time and patient oriented x3 HENMT Head: Yes normal to inspection, Yes No palpable skull fracture present, Yes normocephalic, Yes atraumatic and No abrasion Throat: Yes posterior oropharynx normal, Yes tonsils normal and Yes uvula midline Eyes Other: Positive for crusting in both eyes. negative for active discharge from both eyes. negative for photophobia. General: appearance normal, both eyes and all related structures Neck Neck: Yes normal visual inspection, Yes full ROM, Yes no lymphadenopathy, Yes no meningeal signs, Yes trachea midline, Yes supple, No anterior neck swelling and No tender Chest Chest palpation & inspection: normal inspection of the chest and normal palpation of entire chest wall Resp Effort & Inspection: normal respiratory effort and able to speak in complete sentences Auscultation: clear to auscultation bilaterally Cardio Jugular venous distension: no JVD Heart sounds: S1 normal heart sound present and S2 normal heart sound present GI Other: positive for bowel sounds Inspection: Yes normal to inspection and No abdominal wall ecchymosis Palpation (GI): Soft to palpation, not firm, nontender, no guarding and not rigid General: No CVA tenderness and Yes no CVA tenderness Back/Spine/Pelvis Back: no CVA tenderness, No CVA tenderness and No back tenderness Skin General skin exam: no rashes or lesions noted and elasticity normal Neuro Other: Negative for any neuro deficits. patient has baseline tremors at rest due to parkisons General: oriented to person, oriented to place, oriented to time, patient oriented x3, moves all extremities, Normal light touch and pain sensation, no meningeal signs, no focal motor deficits and CN's II-XI intact bilaterally Extrem General: Yes normal to inspection and Yes full ROM Psych Appearance: grossly normal, well kempt and not disheveled Course Course Course Narrative: Patient VItal signs are stable. Labs ordered. Will do medical evaluation. EKG ordered Reevaluation(s) Reevaluation #1: Spoke with patient's mother Gabriela Castillo who states patient still makes decision for himself but she believes patient needs help such as placement and physical therapy. She states patient has refused them in the past. He states patient lived alone. Spoke with nurse Lachelle who is his visiting nurse from [facility] patient refuses everything. States patient refuses PT to come to his home. She states patient only allows her to come to the hospital give medication. She also agrees patient needs more help/services in the home. Initial labs as troponin BNP EKG electrolytes white blood cell count normal. Pending UA imaging. Patient not toxic appearing not in any distress but due to aging stating abdominal pain for years to thrive we will out pneumonia will rule out any abdominal etiology. Reevaluation #2: Patient medically cleared. Labs are normal. UA negative for UTI. Images are negative. Care team evaluated patient and states patient does not need psych ad mission. Awaiting for psych evaluation to see if patient has capacity to make own decision. financial institution manager Antoinette is following case Time: 14:53 Reevaluation #3: Psychiatrist ABBIE Dai evalauted patient and states patient does not have medication decision capacity, but he has immense support in the community and is not a danger to himself. Also there is no proof from mother that patient has harmed himself. mother agree with plan. ABBIE Dai states patient can be discharged. She states patient is at his baseline mentally and does not need psychiatric admission. patient will be going back home. Time: 17:27 Medications Administered Discontinued Medications Generic Name Dose Route Start Last Admin Trade Name Freq PRN Reason Stop Dose Admin Sodium Chloride 1,000 mls @ 999 mls/hr 02/05/23 06:59 02/05/23 13:00 Ns IV 02/05/23 07:59 Infused .Q1H1M STA Infusion Iohexol 100 ml 02/05/23 10:17 02/05/23 10:17 Iohexol 350 Mg/Ml 100 Ml Infus..Btl IV 02/05/23 10:18 85 ml ONCE ONE Administration Lorazepam 1 mg 02/05/23 16:55 02/05/23 17:32 Lorazepam 1 Mg Tablet PO 02/05/23 16:56 Not Given ONCE ONE Lorazepam 2 mg 02/05/23 17:04 02/05/23 17:34 Lorazepam 1 Mg Tablet PO 02/05/23 17:05 2 mg ONCE ONE Administration Medical Decision Making Medical Decision Making MDM Narrative: 72 yold male presents to the ED for anxiety, nervous, chronic abdominal pain, and eye crusting. Patient medical workup was normal. Eye crusting indicates pink eye no antibiotics needed. Cardiac workup normal. Negative for any neuro deficits. CT head CT normal. Chest CT normal. UA normal. Negative for signs of infection. With concern for patient living alone and patient received crisis and psychiatric evaluation. Psychiatrist nurse practitioner recommend patient could be discharged back home. Patient has good support at home. financial institution manager and psychiatrist spoke with mother. Differential Diagnosis Differential Diagnoses: The differential diagnosis associated with the presentation includes (UTI, pneumonia brain bleed, stroke, myocardial infarction, psychosis) Admission/Observation Consideration of admission/observation: Escalation of care including admission/observation considered Consult Healthcare Provider Management of the patient was discussed with: Senior Research Fellow (Psychiatrist ABBIE Dai) and Behavioral Health Provider (Crisis) Lab Data [facility] Lab Attestation statement: I reviewed the patient's lab results. 02/05/23 07:42 02/05/23 07:42 Labs: Lab Results 02/05/23 02/05/23 02/05/23 Range/Units 07:42 07:42 07:42 WBC 5.3 (4.8-10.8) X10*3/uL RBC 4.75 (4.60-5.80) X10*6/uL Hgb 14.5 (14.0-18.0) g/dl Hct 44.4 (42.0-52.0) % MCV 93.5 (80.0-98.0) fL MCH 30.5 (27.0-33.0) pg MCHC 32.7 (31.0-36.0) g/dl RDW 13.4 (11.0-16.0) % Plt Count 174 (160-400) X10*3/uL MPV 9.4 (9.4-12.4) fL Immature Gran % (Auto) 0.4 (0.0-0.4) % Neut % (Auto) 64.6 (45-73) % Lymph % (Auto) 21.8 (20-40) % [place] % (Auto) 10.5 (2-11) % Eos % (Auto) 2.1 (0-4) % Baso % (Auto) 0.6 (0-2) % Lymph # (Auto) 1.2 (1.2-4.9) X10*3/uL [place] # (Auto) 0.6 (0.1-1.2) X10*3/uL Eos # (Auto) 0.1 (0.0-0.4) X10*3/uL Baso # (Auto) 0.0 (0.0-0.2) X10*3/uL Abs Immat Gran (auto) 0.02 (0.00-0.03) X10*3/uL Absolute Neuts (auto) 3.4 (2.0-8.3) x10*3/uL Absolute Nucleated RBC 0.000 (0.0-0.012) X10*3/uL Nucleated RBC % (auto) 0.0 (0.0-0.2) /100WBC PT (10.0-13.1) SEC INR (0.9-1.1) APTT (26.0-36.4) SEC VBG pH (7.32-7.43) VBG pCO2 mmHg VBG pO2 mmHg VBG HCO3 (22-26) mmol/L VBG O2 Saturation % VBG Base Excess mmol/L Sodium 142 (135-145) mmol/L Potassium 4.2 (3.3-5.1) mmol/L Chloride 107 (96-108) mmol/L Carbon Dioxide 27 (22-29) mmol/L Anion Gap 12 (12-20) BUN 30 H (9-16) mg/dL Creatinine 1.25 (0.5-1.4) mg/dL Estim Creat Clear Calc 58.5 Estimated GFR 57 Random Glucose 102 (60-115) mg/dL Calcium 8.7 (8.4-10.2) mg/dL Magnesium 2.2 (1.6-2.6) mg/dL Total Bilirubin 0.5 (0.0-1.0) mg/dL AST 15 (5-37) U/L ALT 14 (0-40) U/L Alkaline Phosphatase 51 (39-117) U/L Troponin I High Sens (<3.5-35.0) ng/L B-Natriuretic Peptide (<100) pg/mL Total Protein 6.1 L (6.5-8.0) g/dL Albumin 3.6 (3.5-5.0) g/dL Urine Color Urine Appearance Urine pH (5.0-9.0) Ur Specific [place] (1.005-1.025) Urine Protein (Neg-Trace) mg/dL Urine Glucose (UA) (Negative) mg/dL Urine Ketones (Negative) mg/dL Urine Blood (Negative) Urine Nitrite (Negative) Ur Leukocyte Esterase (Negative) Urine RBC (0-2) /HPF Urine WBC (0-5) /HPF Ur Squamous Epith Cells (0-2) /HPF Urine Bacteria (None Seen) Hyaline Casts (0-2) /LPF COVID-19 (DEEPA) Negative (Negative) COVID-19 Clin Com See Note 02/05/23 02/05/23 02/05/23 Range/Units 07:42 07:42 07:42 WBC (4.8-10.8) X10*3/uL RBC (4.60-5.80) X10*6/uL Hgb (14.0-18.0) g/dl Hct (42.0-52.0) % MCV (80.0-98.0) fL MCH (27.0-33.0) pg MCHC (31.0-36.0) g/dl RDW (11.0-16.0) % Plt Count (160-400) X10*3/uL MPV (9.4-12.4) fL Immature Gran % (Auto) (0.0-0.4) % Neut % (Auto) (45-73) % Lymph % (Auto) (20-40) % [place] % (Auto) (2-11) % Eos % (Auto) (0-4) % Baso % (Auto) (0-2) % Lymph # (Auto) (1.2-4.9) X10*3/uL [place] # (Auto) (0.1-1.2) X10*3/uL Eos # (Auto) (0.0-0.4) X10*3/uL Baso # (Auto) (0.0-0.2) X10*3/uL Abs Immat Gran (auto) (0.00-0.03) X10*3/uL Absolute Neuts (auto) (2.0-8.3) x10*3/uL Absolute Nucleated RBC (0.0-0.012) X10*3/uL Nucleated RBC % (auto) (0.0-0.2) /100WBC PT 11.8 (10.0-13.1) SEC INR 1.0 (0.9-1.1) APTT 32.8 (26.0-36.4) SEC VBG pH (7.32-7.43) VBG pCO2 mmHg VBG pO2 mmHg VBG HCO3 (22-26) mmol/L VBG O2 Saturation % VBG Base Excess mmol/L Sodium (135-145) mmol/L Potassium (3.3-5.1) mmol/L Chloride (96-108) mmol/L Carbon Dioxide (22-29) mmol/L Anion Gap (12-20) BUN (9-16) mg/dL Creatinine (0.5-1.4) mg/dL Estim Creat Clear Calc Estimated GFR Random Glucose (60-115) mg/dL Calcium (8.4-10.2) mg/dL Magnesium (1.6-2.6) mg/dL Total Bilirubin (0.0-1.0) mg/dL AST (5-37) U/L ALT (0-40) U/L Alkaline Phosphatase (39-117) U/L Troponin I High Sens 4.8 (<3.5-35.0) ng/L B-Natriuretic Peptide 42 (<100) pg/mL Total Protein (6.5-8.0) g/dL Albumin (3.5-5.0) g/dL Urine Color Urine Appearance Urine pH (5.0-9.0) Ur Specific [place] (1.005-1.025) Urine Protein (Neg-Trace) mg/dL Urine Glucose (UA) (Negative) mg/dL Urine Ketones (Negative) mg/dL Urine Blood (Negative) Urine Nitrite (Negative) Ur Leukocyte Esterase (Negative) Urine RBC (0-2) /HPF Urine WBC (0-5) /HPF Ur Squamous Epith Cells (0-2) /HPF Urine Bacteria (None Seen) Hyaline Casts (0-2) /LPF COVID-19 (DEEPA) (Negative) COVID-19 Clin Com 02/05/23 02/05/23 02/05/23 Range/Units 07:46 10:27 10:48 WBC (4.8-10.8) X10*3/uL RBC (4.60-5.80) X10*6/uL Hgb (14.0-18.0) g/dl Hct (42.0-52.0) % MCV (80.0-98.0) fL MCH (27.0-33.0) pg MCHC (31.0-36.0) g/dl RDW (11.0-16.0) % Plt Count (160-400) X10*3/uL MPV (9.4-12.4) fL Immature Gran % (Auto) (0.0-0.4) % Neut % (Auto) (45-73) % Lymph % (Auto) (20-40) % [place] % (Auto) (2-11) % Eos % (Auto) (0-4) % Baso % (Auto) (0-2) % Lymph # (Auto) (1.2-4.9) X10*3/uL [place] # (Auto) (0.1-1.2) X10*3/uL Eos # (Auto) (0.0-0.4) X10*3/uL Baso # (Auto) (0.0-0.2) X10*3/uL Abs Immat Gran (auto) (0.00-0.03) X10*3/uL Absolute Neuts (auto) (2.0-8.3) x10*3/uL Absolute Nucleated RBC (0.0-0.012) X10*3/uL Nucleated RBC % (auto) (0.0-0.2) /100WBC PT (10.0-13.1) SEC INR (0.9-1.1) APTT (26.0-36.4) SEC VBG pH 7.42 (7.32-7.43) VBG pCO2 45 mmHg VBG pO2 45 mmHg VBG HCO3 29 H (22-26) mmol/L VBG O2 Saturation 76.0 % VBG Base Excess 4.5 mmol/L Sodium (135-145) mmol/L Potassium (3.3-5.1) mmol/L Chloride (96-108) mmol/L Carbon Dioxide (22-29) mmol/L Anion Gap (12-20) BUN (9-16) mg/dL Creatinine (0.5-1.4) mg/dL Estim Creat Clear Calc Estimated GFR Random Glucose (60-115) mg/dL Calcium (8.4-10.2) mg/dL Magnesium (1.6-2.6) mg/dL Total Bilirubin (0.0-1.0) mg/dL AST (5-37) U/L ALT (0-40) U/L Alkaline Phosphatase (39-117) U/L Troponin I High Sens 5.1 (<3.5-35.0) ng/L B-Natriuretic Peptide (<100) pg/mL Total Protein (6.5-8.0) g/dL Albumin (3.5-5.0) g/dL Urine Color Yellow Urine Appearance Clear Urine pH 7.0 (5.0-9.0) Ur Specific [place] 1.010 (1.005-1.025) Urine Protein Negative (Neg-Trace) mg/dL Urine Glucose (UA) Negative (Negative) mg/dL Urine Ketones Negative (Negative) mg/dL Urine Blood Trace (Negative) Urine Nitrite Negative (Negative) Ur Leukocyte Esterase Negative (Negative) Urine RBC 0-2 (0-2) /HPF Urine WBC 0-5 (0-5) /HPF Ur Squamous Epith Cells 0-2 (0-2) /HPF Urine Bacteria None Seen (None Seen) Hyaline Casts 0-2 (0-2) /LPF COVID-19 (DEEPA) (Negative) COVID-19 Clin Com Independent Interpretation I performed an independent interpretation of an: EKG (Sinus bradycardia. Reticular rate 52. Urine tubal 184. QRS 148. QTC 472. Negative STEMI) and CT Scan Radiology Impression Discussion of test interpretation with radiology: I have reviewed the radiologist's reading. Independent Historian Clinical information obtained from an independent historian. History obtained from or confirmed by: Parent and EMS Discharge Plan Discharge Clinical Impression: Bipolar 1 disorder, Chronic abdominal pain Patient Disposition: Home, Self-Care Instructions: Bipolar Disorder (DC), Abdominal Pain (ED) Additional Instructions: Return to the ED immediately for any suicidal/homicidal ideation, change in mental status, auditory/visual hallucinations, chest pain, shortness of breath, abdominal pain, fever, chills, eye pain, change in vision, or any other concerning symptoms. Please follow-up with primary care provider, and therapist. Prescriptions: No Action levothyroxine 200 mcg tablet 200 mcg PO DAILY@0630 90 Days Qty: 90 0RF omeprazole 20 mg capsule,delayed release(DR/EC) 20 mg PO DAILY@0630 90 Days Qty: 90 0RF losartan 50 mg tablet 50 mg PO DAILY 90 Days Qty: 90 0RF Protocol: Hold for SBP< HOLD for SBP < : 90 albuterol sulfate [Ventolin HFA] 90 mcg/actuation Hfa Aerosol Inhaler 2 puff inhalation Q4H PRN (Reason: bronchospasm) Qty: 6.7 0RF donepezil 5 mg Tablet 5 mg PO BEDTIME 30 Days Qty: 30 0RF divalproex 250 mg Tablet,Delayed Release (Dr/Ec) 250 mg PO BID 30 Days Qty: 60 0RF olanzapine 2.5 mg Tablet 2.5 mg PO BEDTIME 30 Days Qty: 30 0RF trazodone 100 mg Tablet 100 mg PO BEDTIME PRN (Reason: Insomnia) 30 Days Qty: 30 0RF Invega Sustenna 156 mg/mL syringe 156 mg IM QMONTH Qty: 1 0RF atorvastatin 40 mg Tablet 40 mg PO BEDTIME dicyclomine 20 mg Tablet 20 mg PO TID PRN (Reason: Gastrointestinal Spasms Or Cramping) pramipexole 0.125 mg Tablet 0.125 mg PO TID ibuprofen 600 mg Tablet 600 mg PO Q6H PRN (Reason: Pain) fluticasone propionate 50 mcg/actuation [place],Suspension 1 spray INTRANASAL BID Rx Instructions: administer into each nostril tamsulosin [Flomax] 0.4 mg capsule 0.4 mg PO BEDTIME Qty: 90 2RF finasteride 5 mg tablet 5 mg PO DAILY Qty: 90 2RF Interventions: ED Discharge Assessment Last Done: 02/05/23 17:54 Discharge Date/Time: 02/05/23 17:54 Print Language: Malian
[2023-02-05] MEDS: 0.9 % Sodium Chloride 1,000 ML 999 ML IV (07:45)
[2023-02-05 07:47] VITALS: BP 162/94; PULSE 54; RESP 14; TEMP 36.5; O2SAT 96
[2023-02-05 07:48] LABS: MANUAL DIFF FLAG NO
[2023-02-05 07:50] LABS: Basophils Percent Auto 0.6 % (0-2); Eosinophils Absolute Auto 0.1 X10*3/uL (0.0-0.4); Eosinophils Percent Auto 2.1 % (0-4); Hematocrit 44.4 % (42.0-52.0); Hemoglobin 14.5 g/dl (14.0-18.0); Imm Gran Abs Auto 0.02 X10*3/uL (0.00-0.03); Imm Gran Pct Auto 0.4 % (0.0-0.4); Lymphocytes Absolute Auto 1.2 X10*3/uL (1.2-4.9); Lymphocytes Percent Auto 21.8 % (20-40); Mean Corpuscular HGB Conc 32.7 g/dl (31.0-36.0); Mean Corpuscular Hemoglobin 30.5 pg (27.0-33.0); Mean Corpuscular Volume 93.5 fL (80.0-98.0); Mean Platelet Volume 9.4 fL (9.4-12.4); Monocytes Absolute Auto 0.6 X10*3/uL (0.1-1.2); Monocytes Percent Auto 10.5 % (2-11); Neutrophils Absolute Auto 3.4 x10*3/uL (2.0-8.3); Neutrophils Percent Auto 64.6 % (45-73); Platelet Count 174 X10*3/uL (160-400); Red Blood Count 4.75 X10*6/uL (4.60-5.80); Red Cell Distribution Width 13.4 % (11.0-16.0); White Blood Count 5.3 X10*3/uL (4.8-10.8)
--- NOTE | 2023-02-05 07:52 | PC.NURSE ---
Alert and oriented, resp even and unlabored. Pt denies any pain just feels anxious. IV established, labs drawn and sent. Fluids infusing, pt watching tv resting comfortably.
[2023-02-05 07:53] LABS: VBG Base Excess 4.5 mmol/L; VBG HCO3 29 mmol/L (22-26); VBG pCO2 45 mmHg; VBG pH 7.42 (7.32-7.43); VBG pO2 45 mmHg
[2023-02-05 07:53] LABS: Venous Blood Gas Refer to POC result
[2023-02-05 07:56] VITALS: BP 158/74; PULSE 49; RESP 12; TEMP 36.5; O2SAT 97
[2023-02-05 07:58] LABS: Prothrombin Time 11.8 SEC (10.0-13.1)
[2023-02-05 08:01] LABS: Partial Thromboplastin Time 32.8 SEC (26.0-36.4)
[2023-02-05 08:11] LABS: B Type Natriuretic Peptide 42 pg/mL (<100)
[2023-02-05 08:12] LABS: Alanine Aminotransferase 14 U/L (0-40); Albumin Level 3.6 g/dL (3.5-5.0); Alkaline Phosphatase 51 U/L (39-117); Anion Gap 12 (12-20); Aspartate Amino Transferase 15 U/L (5-37); Bilirubin Total 0.5 mg/dL (0.0-1.0); Blood Urea Nitrogen 30 mg/dL (9-16); Calcium 8.7 mg/dL (8.4-10.2); Carbon Dioxide 27 mmol/L (22-29); Chloride 107 mmol/L (96-108); Creatinine Clr Calc Pharmacy 58.5; Estimated Glomerular Filt Rate 57; Glucose Random 102 mg/dL (60-115); Potassium 4.2 mmol/L (3.3-5.1); Sodium 142 mmol/L (135-145); Total Protein 6.1 g/dL (6.5-8.0)
[2023-02-05 08:15] LABS: Troponin-I High Sensitivity 4.8 ng/L (<3.5-35.0)
[2023-02-05 08:26] LABS: COVID-19 Test Negative (Negative); IDNOW Serial# 08D9AD1C
[2023-02-05 09:13] LABS: Magnesium 2.2 mg/dL (1.6-2.6)
--- NOTE | 2023-02-05 09:24 | PHA.MEDREC ---
Pharmacy Consult ? Medication Reconciliation Pharmacy has completed the medication reconciliation. Spoke to Shawna from [facility]. Patient is severely non adherent. Pt only takes am meds on MWF. He is no longer on lasix or artane. He does not take any of his evening meds. Shawna states he can not care for himself anymore. He only lets her in for 1 minute 3x a week and also to give invega (last dose 01/22) Jacob
[2023-02-05] MEDS: iohexoL 350 MG/ML 100 ML INFUS..BTL IV (10:17)
--- NOTE | 2023-02-05 10:33 | PC.NURSE ---
Pt able to stand with one assist to use urinal, urine sample obtained and sent.
[2023-02-05 11:03] LABS: Appearance Urine Clear; Color Urine Yellow; Glucose Urine UA Negative (Negative); Leukocyte Esterase Urine Negative (Negative); Nitrite Urine Negative (Negative); UMIC TRIGGER UACC YES; Urine Blood Trace (Negative); Urine Ketones Negative (Negative); Urine Protein Negative (Neg-Trace)
[2023-02-05 11:14] LABS: Troponin-I High Sensitivity 5.1 ng/L (<3.5-35.0)
[2023-02-05 11:17] LABS: Bacteria Urine None Seen (None Seen); Hyaline Casts Urine 0-2 /LPF (0-2); RBC Urine 0-2 /HPF (0-2); Squamous Epithelial Cell Urine 0-2 /HPF (0-2); WBC Urine 0-5 /HPF (0-5)
--- NOTE | 2023-02-05 12:25 | MHC.CARE ---
CARE Team consult placed for Pt can not care for himself. CARE Team spoke with ED provider NEIDA Simms that CM is requesting assessment prior to placement. Pt has documented hx of Bipolar 1 disorder, Dementia, Parkinson.? CARE Team reviewed chart- Pt did not present to the ED for crisis.? CARE Team briefly met with Pt who reported ?I have history of bipolar disorder? and no other psychiatric complaints at this time.? Pt is not presenting in acute crisis requiring a crisis assessment at this time.
[2023-02-05 16:00] VITALS: BP 147/61; PULSE 50; RESP 18; TEMP 36.4; O2SAT 97
--- NOTE | 2023-02-05 16:17 | MHC.CM.ED ---
Received case management consult from Tavo CARRASQUILLO. Patient is active with Sunil COLE. Patient has a long standing history of TBI, bipolar, and dementia. Sunil COLE and patient's mother, Judi are concerned about patient being able to live alone and declining help. Care team consult completed. No inpatient psych level of care needed at this time. Psych consult pending to see if patient has the capacity to make his own decisions. Met with patient's mother, Judi to discuss discharge plan. Patient has periods where he waxes and wanes. He is currently paranoid that Judi ordered a hitman on him. Tanner never completed a HCP. Judi aware psych consult is pending. CM will continue to follow patient to determine what discharge needs he may have. Continue to monitor for d/c needs.
--- NOTE | 2023-02-05 17:10 | PC.NURSE ---
Pt's mother at bedside, pt becoming very agitated by her being at bedside, stating she's trying to end my life . Occasionally yelling at mother
--- NOTE | 2023-02-05 17:22 | P.CNPS_ITS ---
History of Present Illness Date of Service: 02/05/2023 Chief Complaint: Failure to thrive Sources of Information: patient interviewed, chart reviewed and crisis/core team assessment reviewed HPI Narrative: Mr. Lugo is a 72 year-old male with hx of Bipolar disorder. Pt was brought to [facility] by his mother. Pt presents with paranoia towards his mother, stating moth er tried to poison him. Pt denies SI/HI. Pt known to this bid writer through prior admission to [facility] for treatment of grandiose delusions, agitation and combative behaviors. Psychiatry asked to evaluate need for inpatient admission, safety in community given concerns in terms of cognitive decline. Collateral information gathered from his mother who is by his bedside. Mother reports pt has been mostly stable, taking medications and attending appointments with his long term care phlebotomist psychiatrist, Dr. Ventura. Mother denies exacerbation of baseline psychiatric symptoms. At home pt has VNA and mother visits almost daily. Pt is not supposed to be driving, which he apparently is not doing. Conversation has held with his mother in terms of pt's capacity to make medical decisions which is impaired in the sense that pt not able to show understanding of medical decisions and show appreciation in terms of risks versus benefits of accepting or refusing treatment. Moreover, during previous admission while on the [facility], pt has shown significant impairment in memory, ability to recall information, executive function as well as visuo-spatial skills. At this time pt has enough supports in the community to live safely but eventually and if mother not present his safety may be compromised. Pt seen. Pt denies SI/HI. Less grandiose ideas but some paranoia towards mother. He denies any plan or intent to harm himself or someone else. He agrees to go with his mother. Past Psychiatric History: -Has OP services at [facility], provider is Dr. Ventura -Hx of VNA services, now discontinued -Hx of 4 prev inpatient psych admissions. Pt has previous psych admission at [facility] 03/29/21-04/10/21 due to agitation, religiously preoccupied, stating that he is God and has killed the devil, and lack of self care in context of med non-adherence. On the unit he was labile, agitated, and demanding to leave, tried to elope several times. He had poor insight symptoms, however ultimately agreed to trial of risperdal, depakote and was discharged home with VNA. -Recent crisis eval 10/29/21 due to med non-adherence, AH, delusions, not showe ring, and meeting with his who is . Dispo was to f/u with OP providers. -Past trials: olanzapine (on this for several years but reported sedation, constipation, dizziness), citalopram, haldol (EPS), geodon 20 mg, trileptal (ineffective), lamictal (rash), seroquel (ineffective). Risperdal 1 mg QD and 3 mg QHS and depakote 500 mg BID were started during prev [facility] [place] 03/2021. [facility] Medical History Abdominal pain, chronic, right lower quadrant Acquired hypothyroidism Allergic rhinitis Anxiety Benign essential hypertension Benign prostatic hyperplasia with urinary obstruction CAD (coronary artery disease) Constipation COPD (chronic obstructive pulmonary disease) Dementia Diabetes mellitus GERD (gastroesophageal reflux disease) Hypothyroid Insomnia Obesity (BMI 30-39.9) Osteoarthritis Pure hypercholesterolemia Vitamin D deficiency Surgical History History of arthroscopic knee surgery History of cardiac catheterization History of colectomy History of esophagogastroduodenoscopy (EGD) History of excision of pilonidal cyst History of eye surgery History of skin graft Hx of colonoscopy Family History: sister- depression Social History: -Pt?s supports include his mother, Gabriela Lugo ([phone]). 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 Trauma History: none Diagnostics Vital Signs (24Hr): Vital Signs - 24 hr 02/05/23 06:45 02/05/23 07:47 02/05/23 07:56 Temperature 98.2 F 97.7 F 97.7 F Pulse Rate 56 54 49 L Respiratory Rate 18 14 12 Blood Pressure 168/76 H 162/94 H 158/74 H Pulse Oximetry 97 96 97 Oxygen Delivery Method Room Air Room Air Room Air 02/05/23 16:00 Temperature 97.6 F Pulse Rate 50 Respiratory Rate 18 Blood Pressure 147/61 H Pulse Oximetry 97 Oxygen Delivery Method Room Air BMI result Body Mass Index 29.5 Labs 02/05/23 07:42 02/05/23 07:42 Labs: Laboratory Results - last 48 hr 02/05/23 02/05/23 02/05/23 07:42 07:42 07:42 WBC 5.3 RBC 4.75 Hgb 14.5 Hct 44.4 MCV 93.5 MCH 30.5 MCHC 32.7 RDW 13.4 Plt Count 174 MPV 9.4 Immature Gran % (Auto) 0.4 Neut % (Auto) 64.6 Lymph % (Auto) 21.8 [place] % (Auto) 10.5 Eos % (Auto) 2.1 Baso % (Auto) 0.6 Lymph # (Auto) 1.2 [place] # (Auto) 0.6 Eos # (Auto) 0.1 Baso # (Auto) 0.0 Abs Immat Gran (auto) 0.02 Absolute Neuts (auto) 3.4 Absolute Nucleated RBC 0.000 Nucleated RBC % (auto) 0.0 PT INR APTT VBG pH VBG pCO2 VBG pO2 VBG HCO3 VBG O2 Saturation VBG Base Excess Sodium 142 Potassium 4.2 Chloride 107 Carbon Dioxide 27 Anion Gap 12 BUN 30 H Creatinine 1.25 Estim Creat Clear Calc 58.5 Estimated GFR 57 Random Glucose 102 Calcium 8.7 Magnesium 2.2 Total Bilirubin 0.5 AST 15 ALT 14 Alkaline Phosphatase 51 Troponin I High Sens B-Natriuretic Peptide Total Protein 6.1 L Albumin 3.6 Urine Color Urine Appearance Urine pH Ur Specific [place] Urine Protein Urine Glucose (UA) Urine Ketones Urine Blood Urine Nitrite Ur Leukocyte Esterase Urine RBC Urine WBC Ur Squamous Epith Cells Urine Bacteria Hyaline Casts COVID-19 ([facility]) Negative COVID-19 Clin Com See Note 02/05/23 02/05/23 02/05/23 07:42 07:42 07:42 WBC RBC Hgb Hct MCV MCH MCHC RDW Plt Count MPV Immature Gran % (Auto) Neut % (Auto) Lymph % (Auto) [place] % (Auto) Eos % (Auto) Baso % (Auto) Lymph # (Auto) [place] # (Auto) Eos # (Auto) Baso # (Auto) Abs Immat Gran (auto) Absolute Neuts (auto) Absolute Nucleated RBC Nucleated RBC % (auto) PT 11.8 INR 1.0 APTT 32.8 VBG pH VBG pCO2 VBG pO2 VBG HCO3 VBG O2 Saturation VBG Base Excess Sodium Potassium Chloride Carbon Dioxide Anion Gap BUN Creatinine Estim Creat Clear Calc Estimated GFR Random Glucose Calcium Magnesium Total Bilirubin AST ALT Alkaline Phosphatase Troponin I High Sens 4.8 B-Natriuretic Peptide 42 Total Protein Albumin Urine Color Urine Appearance Urine pH Ur Specific [place] Urine Protein Urine Glucose (UA) Urine Ketones Urine Blood Urine Nitrite Ur Leukocyte Esterase Urine RBC Urine WBC Ur Squamous Epith Cells Urine Bacteria Hyaline Casts COVID-19 ([facility]) COVID-19 Clin Com 02/05/23 02/05/23 02/05/23 07:46 10:27 10:48 WBC RBC Hgb Hct MCV MCH MCHC RDW Plt Count MPV Immature Gran % (Auto) Neut % (Auto) Lymph % (Auto) [place] % (Auto) Eos % (Auto) Baso % (Auto) Lymph # (Auto) [place] # (Auto) Eos # (Auto) Baso # (Auto) Abs Immat Gran (auto) Absolute Neuts (auto) Absolute Nucleated RBC Nucleated RBC % (auto) PT INR APTT VBG pH 7.42 VBG pCO2 45 VBG pO2 45 VBG HCO3 29 H VBG O2 Saturation 76.0 VBG Base Excess 4.5 Sodium Potassium Chloride Carbon Dioxide Anion Gap BUN Creatinine Estim Creat Clear Calc Estimated GFR Random Glucose Calcium Magnesium Total Bilirubin AST ALT Alkaline Phosphatase Troponin I High Sens 5.1 B-Natriuretic Peptide Total Protein Albumin Urine Color Yellow Urine Appearance Clear Urine pH 7.0 Ur Specific [place] 1.010 Urine Protein Negative Urine Glucose (UA) Negative Urine Ketones Negative Urine Blood Trace Urine Nitrite Negative Ur Leukocyte Esterase Negative Urine RBC 0-2 Urine WBC 0-5 Ur Squamous Epith Cells 0-2 Urine Bacteria None Seen Hyaline Casts 0-2 COVID-19 ([facility]) COVID-19 Clin Com Imaging Radiology Impressions: ITS Impressions Abdomen/Pelvis CT 02/05/23 10:30 IMPRESSION: * No evidence of pneumonia, lung mass or lymphadenopathy. * Atherosclerosis of coronary arteries and thoracoabdominal aorta without aortic aneurysm. * Small pericardial effusion is noted. * No evidence of bowel wall thickening at site of enterocolonic anastomosis. No imaging evidence of an abdominal malignancy. Chest CT 02/05/23 10:30 IMPRESSION: * No evidence of pneumonia, lung mass or lymphadenopathy. * Atherosclerosis of coronary arteries and thoracoabdominal aorta without aortic aneurysm. * Small pericardial effusion is noted. * No evidence of bowel wall thickening at site of enterocolonic anastomosis. No imaging evidence of an abdominal malignancy. Head CT 02/05/23 10:30 IMPRESSION: No acute intracranial pathology. Mild volume loss with small vessel ischemic change. Medications Medications Current Medications Pharmacy Consult (Consult Rx Perform Med Rec) 1 each MISCELLANE ONCE PRN PRN Reason: Consult order Allergies Allergies Allergy/AdvReac Type Severity Reaction Status Date / Time lisinopril [LISINOPRIL] Allergy Intermediate RASH Verified 12/20/21 11:56 Assessment & Plan Assessment & Plan (1) Bipolar affective, manic, severe w/ psych: Status: Acute Code(s): F31.2 - Bipolar disorder, current episode manic severe with psychotic features Plan Pt known to this bid writer and C through previous admissions for grandiose delusions, erotomatic delusions, agitation secondary to exacerbation of psychosis and delusional symptoms. Pt presents with paranoid towards mother, no overt agitation or aggression. Mother denies any safety concerns at this point. In terms of capacity, pt lacks capacity to make medical decisions in that he is not able to show understanding of medical conditions, appreciation of risks, versus benefits of accepting or rejecting treatment worsened by fact that pt has severe impairment in ability to retain information, impaired executive function. however, at this time, given supports that he receives from mother and VNA there is no indication that he is not safe in the community with current supports. Mother against guardianship at this point and there is no HCP. Pt is not in need of inpatient psych- no imminent safety concerns due to exacerbation of psychiatric symptoms. Pt to return home with his mother. Total time managing care of this patient today ____ minutes.
[2023-02-05] MEDS: LORazepam 1 MG TABLET 2 MG PO (17:34)
--- NOTE | 2023-02-05 17:50 | MHC.CM.ED ---
Addendum entered by Lalitha Fox 02/05/23 20:26: [facility] is aware and has accepted patient. Waiting for completed psych evaluation consult note. Addendum entered by Lalitha Fox 02/05/23 18:24: Updates and clinicals to [facility] via [facility]. Original Note: CM met with Malaika PRIMARY SPECIAL EDUCATION TEACHER. Per Malaika, pt does not have capacity to make medical decisions, but she knows this patient and feels he can safely live in the community with the supports he has and family supports. Malaika is aware that he refuses some medications, but does not feel he needs guardianship or inpatient psych admission at this time. Malaika feels patient is at his psychiatric baseline. Malaika spoke with the patient's mother, who does not believe the patient should be in LTC. Malaika has spoken at length with patient and patient's mother regarding future planning for when mother is no longer able to assist the patient, but mother is hesitant to discuss future for her son, nor is she willing to be his guardian. Pt has SENIOR RESERVATIONS AGENT 4x/wk, daily VNA for meds, CM at [facility] and has mother supports as needed. Patient takes morning medications and his monthly psych injections. Refuses evening medications. Mother is requesting patient be discharged home and patient is also requesting discharge. Malaika is recommending discharge home.
== END 2023-02-05 17:54 | disposition home or self-care (01) ==
PROVIDERS: Physician Assistant; Emergency Provider Student in an Organized Health Care Education/Training Program; PCP Internal Medicine
DX: F31.9 Bipolar disorder, unspecified (principal); G89.29 Other chronic pain; R10.31 Right lower quadrant pain; Z20.822 Contact with and (suspected) exposure to COVID-19; R62.7 Adult failure to thrive; Z68.29 Body mass index [BMI] 29.0-29.9, adult; E11.9 Type 2 diabetes mellitus without complications; I10 Essential (primary) hypertension; E78.00 Pure hypercholesterolemia, unspecified; G20 Parkinson's disease; F02.80 Dementia in other diseases classified elsewhere, unspecified severity, without behavioral disturbance, psychotic disturbance, mood disturbance, and anxiety; Z87.891 Personal history of nicotine dependence; Z79.02 Long term (current) use of antithrombotics/antiplatelets; Z79.899 Other long term (current) drug therapy
CPT/HCPCS: 36415; 70450; 71260; 74177; 80053; 81001; 81003; 82803; 83735; 83880; 84484; 85025; 85610; 85730; 87635; 93005; 96360; 96361; 99285; Q9967

== ENCOUNTER → 2023-02-05 06:53 | Outpatient (BNV) | payer OTHER, MEDICAID, SELFPAY | PROVIDERS: Emergency Provider Student in an Organized Health Care Education/Training Program; PCP Internal Medicine; Visit Provider Social Worker | DX: F31.2 Bipolar disorder, current episode manic severe with psychotic features (principal) | CPT/HCPCS: 99285 ==

== ENCOUNTER 2023-03-14 14:25 | Emergency (ER) | payer OTHER, MEDICAID, SELFPAY ==
[2023-03-14 14:42] VITALS: BP 140/102; BP 167/72; PULSE 50; PULSE 56; RESP 17; TEMP 36.8; O2SAT 94; O2SAT 96; BMI 29.3
--- NOTE | 2023-03-14 14:48 | ED.GENADULT ---
HPI - General Adult General Chief complaint: General Medical Stated complaint: Rash x 5 days on R arm/genitals per EMS Time Seen by Provider: 03/14/23 14:47 Source: patient, EMS, RN notes reviewed and old records reviewed Mode of arrival: EMS History of Present Illness HPI narrative: 72 year old male with PMHx of Bipolar I disorder, Parkinson disease, BPH, Psychosis, diabetes, CAD GERD, HLD, hypothyroid who presents to the ED via EMS c/o persistent/worsening rash to bilateral LE, groin, and right arm x weeks. Patient admits to using topical agents without relief. Denies known tick/insect bites, new exposures, SOB, fever/chills Onset (ago): week(s) Related Data Home Medications Medication Instructions Recorded Confirmed atorvastatin 40 mg tablet 40 mg PO BEDTIME 11/23/22 02/05/23 dicyclomine 20 mg tablet 20 mg PO TID PRN Gastrointestinal 11/23/22 02/05/23 Spasms Or Cramping fluticasone propionate 50 1 spray intranasal BID 11/23/22 02/05/23 mcg/actuation nasal spray,suspension ibuprofen 600 mg tablet 600 mg PO Q6H PRN Pain 11/23/22 02/05/23 pramipexole 0.125 mg tablet 0.125 mg PO TID 11/23/22 02/05/23 Previous Rx's Medication Instructions Recorded albuterol sulfate 90 mcg/actuation 2 puff inhalation Q4H PRN 01/06/22 aerosol inhaler (Ventolin HFA) bronchospasm #6.7 grams divalproex 250 mg tablet,delayed 250 mg PO BID 30 days #60 tabs 01/06/22 release donepezil 5 mg tablet 5 mg PO BEDTIME 30 days #30 tabs 01/06/22 olanzapine 2.5 mg tablet 2.5 mg PO BEDTIME 30 days #30 tabs 01/06/22 paliperidone palmitate 156 mg/mL 156 mg IM QMONTH #1 mL 01/06/22 intramuscular syringe (Invega Sustenna) trazodone 100 mg tablet 100 mg PO BEDTIME PRN Insomnia 30 01/06/22 days #30 tabs finasteride 5 mg tablet 5 mg PO DAILY #90 tabs 06/13/22 tamsulosin 0.4 mg capsule (Flomax) 0.4 mg PO BEDTIME #90 caps 06/13/22 levothyroxine 200 mcg tablet 200 mcg PO DAILY@0630 90 days #90 08/29/22 tabs omeprazole 20 mg capsule,delayed 20 mg PO DAILY@0630 90 days #90 08/29/22 release caps losartan 50 mg tablet 50 mg PO DAILY 90 days #90 tabs 11/21/22 Allergies Allergy/AdvReac Type Severity Reaction Status Date / Time lisinopril [LISINOPRIL] Allergy Intermediate RASH Verified 12/20/21 11:56 Review of Systems Review of Systems: Constitutional: No Fever, No Chills ENT/Mouth: No Ear Pain, No Nasal Congestion, No sore throat, No Rhinorrhea, No Swallowing Difficulty Cardiovascular: No Chest Pain, No SOB Respiratory: No Cough, No Sputum, No Wheezing Gastrointestinal: No Nausea, No Vomiting, No Diarrhea, No Constipation, No Abdominal pain Genitourinary: No Dysuria, No Urinary Frequency, No Flank Pain Musculoskeletal: No joint pain, No Myalgias, No Joint Swelling Skin: + Skin Lesions,+ rash Neuro: No Weakness, No Numbness, No Paresthesias Yes all other systems are reviewed and are negative Constitutional: Constitutional: Reports as per [facility] Past Medical History Attestation statement: The following information was validated with the patient. Source: old records reviewed Medical History Abdominal pain, chronic, right lower quadrant Acquired hypothyroidism Allergic rhinitis Anxiety Benign essential hypertension Benign prostatic hyperplasia with urinary obstruction CAD (coronary artery disease) Constipation COPD (chronic obstructive pulmonary disease) Diabetes mellitus GERD (gastroesophageal reflux disease) Insomnia Obesity (BMI 30-39.9) Osteoarthritis Pure hypercholesterolemia Vitamin D deficiency Surgical History History of arthroscopic knee surgery History of cardiac catheterization History of colectomy History of esophagogastroduodenoscopy (EGD) History of excision of pilonidal cyst History of eye surgery History of skin graft Hx of colonoscopy Family History Family History Father Stroke CVD (cerebrovascular disease) Mother Hypertension Social History Social History Household Members: None Housing: Apartment Do you presently have visiting nurse or other home services: Yes (Had [facility] [employer] [facility] and [facility]) Unable to assess alcohol history related to: Refusing to respond Alcohol intake: never Patient Tobacco Use Status: Former Tobacco user Quit Date: long time ago Tobacco use type: Cigarette and Cigar Years Smoked: unknown Smoked in Last 30 Days: No e-Cigarette/Vaping Use: Never Used Second Hand Smoke Exposure: No Use of substances other than those prescribed or required for medical reasons: No Advance Directives: No Advance Directives Information Provided: Yes service: No Current occupational status: retired Sexual orientation: Straight/Heterosexual Physical Exam ED Vital Signs: Vital Signs - 24 hr 03/14/23 14:42 Temperature 98.3 F Pulse Rate 56 Respiratory Rate 17 Blood Pressure 167/72 H Pulse Oximetry 96 Oxygen Delivery Method Room Air BMI result Body Mass Index 29.3 Const General: cooperative, healthy appearing and no acute distress Orientation/consciousness: patient oriented x3 Limitations: no limitations HENMT Head: Yes normal to inspection and Yes atraumatic Ears: hearing grossly normal bilaterally General nose exam: Normal external nose present Face and sinus: Yes normal facial exam Eyes General: appearance normal, both eyes and all related structures EOM: EOMs intact bilaterally Neck Neck: Yes normal visual inspection and Yes no meningeal signs Resp Effort & Inspection: normal respiratory effort and no respiratory distress Cardio Rate: regular rate Heart sounds: S1 normal heart sound present and S2 normal heart sound present GI Inspection: Yes normal to inspection Palpation (GI): Soft to palpation, nontender, no guarding and not rigid Skin Other: + linear excoriations noted to bilateral lower extremities > LLE with chronic venous stasis changes. No pitting edema. + bug bites noted to right antecubital area, groin, and scrotum. No evidence of Beatrice gangrene. No warmth. No testicular tenderness/swelling + intertrigo noted to groin No overlying erythema, no fluctuance/induration, no drainage Rashes: rashes noted Wounds: no wounds Neuro General: patient oriented x3, tone normal and no meningeal signs Gait exam (Neuro): Normal gait present Extrem General: Yes normal to inspection Medical Decision Making Medical Decision Making MDM Narrative: 72 year old male with PMHx of Bipolar I disorder, Parkinson disease, BPH, Psychosis, diabetes, CAD GERD, HLD, hypothyroid who presents to the ED via EMS c/o persistent/worsening rash to bilateral LE, groin, and right arm x weeks. On exam vital signs stable, physical exam as noted above with linear excoriations noted to LLE, bug bites noted to RUE and groin with intertrigo. vs ?Scabies. No evidence of cellulitis or Beatrice's gangrene. Low suspicion for DVT/CHF. Low suspicion for STI Plan: PO Keflex, Azole powder, Permethrin Please refer to course for remaining clinical decision making, interpretation of labs/imaging results, and discussions with consultants and/or family members. Differential Diagnosis Differential Diagnoses: The differential diagnosis associated with the presentation includes As above Admission/Observation Consideration of admission/observation: Escalation of care including admission/observation considered Lab Data MDM Lab Attestation statement: I reviewed the patient's lab results. Radiology Impression Discussion of test interpretation with radiology: I have reviewed the radiologist's reading. External Record Review External record reviewed: Inpatient record, Office record, Outpatient record, Prior outpatient labs, Prior outpatient radiology, Primary care record and Outside ED record Tests considered The following testing was considered but not selected: As above Discharge Plan Discharge Clinical Impression: Intertrigo, Bug bite, Scabies Patient Disposition: Home, Self-Care Instructions: Scabies (ED), Jock Itch (ED) Additional Instructions: Please use topical agents as prescribed. Permethrin is for possible scabies Miconazole is a fungal cream to help with your groin rash Keflex is an oral antibiotic to help with possible infection Please have close follow-up with her primary care doctor If symptoms persist or worsen, he developed persistent worsening rash, any fever, redness or warmth to areas return to the ED Prescriptions: No Action levothyroxine 200 mcg tablet 200 mcg PO DAILY@0630 90 Days Qty: 90 0RF omeprazole 20 mg capsule,delayed release(DR/EC) 20 mg PO DAILY@0630 90 Days Qty: 90 0RF losartan 50 mg tablet 50 mg PO DAILY 90 Days Qty: 90 0RF Protocol: Hold for SBP< HOLD for SBP < : 90 albuterol sulfate [Ventolin HFA] 90 mcg/actuation Hfa Aerosol Inhaler 2 puff inhalation Q4H PRN (Reason: bronchospasm) Qty: 6.7 0RF donepezil 5 mg Tablet 5 mg PO BEDTIME 30 Days Qty: 30 0RF divalproex 250 mg Tablet,Delayed Release (Dr/Ec) 250 mg PO BID 30 Days Qty: 60 0RF olanzapine 2.5 mg Tablet 2.5 mg PO BEDTIME 30 Days Qty: 30 0RF trazodone 100 mg Tablet 100 mg PO BEDTIME PRN (Reason: Insomnia) 30 Days Qty: 30 0RF Invega Sustenna 156 mg/mL syringe 156 mg IM QMONTH Qty: 1 0RF atorvastatin 40 mg Tablet 40 mg PO BEDTIME dicyclomine 20 mg Tablet 20 mg PO TID PRN (Reason: Gastrointestinal Spasms Or Cramping) pramipexole 0.125 mg Tablet 0.125 mg PO TID ibuprofen 600 mg Tablet 600 mg PO Q6H PRN (Reason: Pain) fluticasone propionate 50 mcg/actuation [place],Suspension 1 spray INTRANASAL BID Rx Instructions: administer into each nostril tamsulosin [Flomax] 0.4 mg capsule 0.4 mg PO BEDTIME Qty: 90 2RF finasteride 5 mg tablet 5 mg PO DAILY Qty: 90 2RF
[2023-03-14] MEDS: Clotrimazole 1 % Cream 15 GM TUBE 1 APPL TOPICAL (16:24)
[2023-03-14] MEDS: cephALEXin 500 MG CAPSULE PO (16:24)
[2023-03-14 16:29] VITALS: BP 166/70; PULSE 56; RESP 16; O2SAT 98
--- NOTE | 2023-03-14 18:00 | PC.NURSE ---
EMS crew came to bring patient back home but stating that because he has a dementia in his history they need someone at home when patient gets there. Attempted to call patient's mother but unable to get a hold of her after multiple attempts.
[2023-03-14 19:16] VITALS: BP 162/71; PULSE 46; RESP 18; TEMP 36.7; O2SAT 95
== END 2023-03-14 19:57 | disposition home or self-care (01) ==
PROVIDERS: Emergency Provider Internal Medicine; PCP Internal Medicine
DX: L30.4 Erythema intertrigo (principal); B86 Scabies; S30.861A Insect bite (nonvenomous) of abdominal wall, initial encounter; S30.863A Insect bite (nonvenomous) of scrotum and testes, initial encounter; S50.361A Insect bite (nonvenomous) of right elbow, initial encounter; W57.XXXA Bitten or stung by nonvenomous insect and other nonvenomous arthropods, initial encounter; Y93.9 Activity, unspecified; Y92.9 Unspecified place or not applicable; Y99.9 Unspecified external cause status
CPT/HCPCS: 99283; 99284

== ENCOUNTER 2023-03-26 14:08 | Emergency (ER) | payer OTHER, MEDICAID, SELFPAY ==
[2023-03-26 14:27] VITALS: BP 160/90; BP 175/80; PULSE 56; PULSE 58; RESP 16; TEMP 36.6; O2SAT 98; O2SAT 99; BMI 30.3
--- NOTE | 2023-03-26 14:28 | ED.GENADULT ---
HPI - General Adult General Chief complaint: Skin/Abscess/Foreign Body Stated complaint: RASH X1 WEEK TO R WRIST/THIGH PER EMS Time Seen by Provider: 03/26/23 14:23 Source: patient and EMS Mode of arrival: EMS Limitations: no limitations History of Present Illness HPI narrative: Patient is a 72 year old male with a significant history of COPD, DM, CAD, hypercholesterolemia and osteoarthritis who presents today for rash on the left knee and in the groin area that has been ongoing for sometime now. He reports that this has never happened before, however, he admits to corrie chickenpox as a child. He describes rash as very itchy especially in intertriginous areas. He denies recent travels or recent sexual intercourse. He denies fever, chills, malaise, SOB or chest pain. He reports no other acute concerns at this time. Patient states that he was evaluated for this complaint the other day and was prescribed medication however, he was unable to pick them up and needs them sent to a different pharmacy. Onset (ago): day(s) Severity: mild Severity scale (1-10): 2 Relieving factors: none Exacerbating factors: none Associated symptoms: denies other symptoms Treatments prior to arrival: none Related Data Home Medications Medication Instructions Recorded Confirmed atorvastatin 40 mg tablet 40 mg PO BEDTIME 11/23/22 02/05/23 dicyclomine 20 mg tablet 20 mg PO TID PRN Gastrointestinal 11/23/22 02/05/23 Spasms Or Cramping fluticasone propionate 50 1 spray intranasal BID 11/23/22 02/05/23 mcg/actuation nasal spray,suspension ibuprofen 600 mg tablet 600 mg PO Q6H PRN Pain 11/23/22 02/05/23 pramipexole 0.125 mg tablet 0.125 mg PO TID 11/23/22 02/05/23 Previous Rx's Medication Instructions Recorded albuterol sulfate 90 mcg/actuation 2 puff inhalation Q4H PRN 01/06/22 aerosol inhaler (Ventolin HFA) bronchospasm #6.7 grams divalproex 250 mg tablet,delayed 250 mg PO BID 30 days #60 tabs 01/06/22 release donepezil 5 mg tablet 5 mg PO BEDTIME 30 days #30 tabs 01/06/22 olanzapine 2.5 mg tablet 2.5 mg PO BEDTIME 30 days #30 tabs 01/06/22 paliperidone palmitate 156 mg/mL 156 mg IM QMONTH #1 mL 01/06/22 intramuscular syringe (Invega Sustenna) trazodone 100 mg tablet 100 mg PO BEDTIME PRN Insomnia 30 01/06/22 days #30 tabs finasteride 5 mg tablet 5 mg PO DAILY #90 tabs 06/13/22 tamsulosin 0.4 mg capsule (Flomax) 0.4 mg PO BEDTIME #90 caps 06/13/22 levothyroxine 200 mcg tablet 200 mcg PO DAILY@0630 90 days #90 08/29/22 tabs omeprazole 20 mg capsule,delayed 20 mg PO DAILY@0630 90 days #90 08/29/22 release caps losartan 50 mg tablet 50 mg PO DAILY 90 days #90 tabs 11/21/22 cephalexin 500 mg capsule 500 mg PO QID 7 days #28 caps 03/14/23 miconazole nitrate 2 % topical 1 appl topical BID 14 days #85 03/14/23 powder grams permethrin 5 % topical cream 1 appl topical Q14D 2 doses #60 03/14/23 grams fluconazole 150 mg tablet 150 mg PO Q3D 2 doses #2 tabs 03/26/23 (Diflucan) ivermectin 3 mg tablet 18,600 mcg PO Q2W 2 doses #12.4 03/26/23 tabs Allergies Allergy/AdvReac Type Severity Reaction Status Date / Time lisinopril [LISINOPRIL] Allergy Intermediate RASH Verified 12/20/21 11:56 Review of Systems Constitutional: Constitutional: Reports no additional constitutional complaints, Denies chills, Denies fever(s) and Denies night sweats Eyes: Eyes: Reports no additional eye complaints, Denies blurry vision, Denies change in vision, Denies diplopia, Denies eye discharge, Denies loss of vision and Denies eye pain ENT: Denies dizziness Cardiovascular: Cardiovascular: Reports no additional cardiovascular complaints, Denies chest pain, Denies lightheadedness, Denies Loss of Consciousness and Denies dyspnea Respiratory: Respiratory: Reports no additional respiratory complaints and Denies dyspnea Gastrointestinal: Gastrointestinal: Reports no additional gastrointestinal complaints, Denies abdominal pain, Denies melena, Denies hematochezia, Denies change in bowel habits and Denies change in stool character Genitourinary: Genitourinary: Reports no additional male genitourinary complaints, Denies hematuria, Denies oliguria, Denies difficulty urinating, Denies dysuria, Denies urinary frequency, Denies urinary hesitancy, Denies urinary incontinence and Denies urinary urgency Musculoskeletal: Musculoskeletal: Reports no additional musculoskeletal complaints, Denies numbness and Denies tingling Integumentary/Breasts: Comments: puritic rash Neurologic: Denies dizziness, Denies loss of vision, Denies numbness and Denies tingling Psychiatric: Psychiatric: Reports no additional psychiatric complaints Endocrine: Endocrine: Reports no additional endocrine complaints Hematologic/Lymphatic: Hematologic/Lymphatic: Reports no additional hematologic/lymphatic complaints Allergic/Immunologic: Allergic/Immunologic: Reports no additional allergic/immunologic complaints [facility] Past Medical History Attestation statement: The following information was validated with the patient. Source: old records reviewed and nursing notes reviewed Medical History Abdominal pain, chronic, right lower quadrant Acquired hypothyroidism Allergic rhinitis Anxiety Benign essential hypertension Benign prostatic hyperplasia with urinary obstruction CAD (coronary artery disease) Constipation COPD (chronic obstructive pulmonary disease) Diabetes mellitus GERD (gastroesophageal reflux disease) Insomnia Obesity (BMI 30-39.9) Osteoarthritis Pure hypercholesterolemia Vitamin D deficiency Surgical History History of arthroscopic knee surgery History of cardiac catheterization History of colectomy History of esophagogastroduodenoscopy (EGD) History of excision of pilonidal cyst History of eye surgery History of skin graft Hx of colonoscopy Family History Family History Father Stroke CVD (cerebrovascular disease) Mother Hypertension Social History Social History Household Members: None Housing: Apartment Do you presently have visiting nurse or other home services: Yes (Had [facility] and [facility]) Unable to assess alcohol history related to: Refusing to respond Alcohol intake: never Patient Tobacco Use Status: Former Tobacco user Quit Date: long time ago Tobacco use type: Cigarette and Cigar Years Smoked: unknown e-Cigarette/Vaping Use: Never Used Second Hand Smoke Exposure: No Advance Directives: No service: No Current occupational status: retired Sexual orientation: Straight/Heterosexual Physical Exam ED Vital Signs: Vital Signs - 24 hr 03/26/23 14:27 Temperature 97.9 F Pulse Rate 58 Respiratory Rate 16 Blood Pressure 175/80 H Pulse Oximetry 99 Oxygen Delivery Method Room Air BMI result Body Mass Index 30.3 Const General: cooperative, no acute distress, alert and awake Nutritional Appearance: well nourished Orientation/consciousness: patient oriented x3 Limitations: no limitations HENMT Head: Yes normal to inspection and Yes atraumatic Ears: hearing grossly normal bilaterally and external ears normal General nose exam: Normal external nose present, no nasal discharge noted and no epistaxis Face and sinus: Yes normal facial exam, No abrasion and No laceration Mouth: Normal oral and palatal mucosa present, no drooling and no muffled voice Eyes General: appearance normal, both eyes and all related structures Periorbital: periorbital findings normal Eyelids: Yes eyelids normal Conjunctivae: conjunctivae normal Pupils: Equal, round and reactive pupils present EOM: EOMs intact bilaterally Neck Neck: Yes normal visual inspection, Yes full ROM and Yes no lymphadenopathy Chest Chest palpation & inspection: normal inspection of the chest Resp Effort & Inspection: normal respiratory effort and able to speak in complete sentences GI Inspection: Yes normal to inspection Skin Other: bilateral lower extremity puritic erythematous rash - no warmth, no swelling, no evidence of infection Neuro General: patient oriented x3 and moves all extremities Cranial nerves: Yes Equal, round and reactive pupils present Cognition (Neuro): normal cognition Motor exam (neuro): 5/5 motor strength present throughout Sensory Exam: Normal double simultaneous stimulation for sensation Coordination: [id number] test normal Extrem General: Yes normal to inspection, Yes full ROM and Yes capillary refill normal Psych Appearance: grossly normal Mental Status: mental status grossly normal Affect: normal affect Attitude: cooperative Thought process: Normal thought process present Thought content: Normal thought content present Insight: Good insight present (Psych) Medical Decision Making Medical Decision Making MDM Narrative: Patient is a 72 year old assigned male at with a history of COPD, DM, CAD, hypercholesterolemia and osteoarthritis presenting to the emergency department today with possible scabies. Patient's physical exam was as noted in the physical exam portion of this chart. I explained my physical exam findings to the patient. I answered all questions asked by the patient. I stressed the importance of the patient taking his medication as prescribed. I stressed the importance of the patient following up with his primary care provider and a carnallite plant operator. I stressed the importance of the patient returning to the emergency department immediately if his symptoms were to worsen or if he were to develop any dizziness, shortness of breath, difficulty breathing, chest pain, blurry vision, loss of vision, nausea, vomiting, abdominal pain, fever, chills, back pain, or any other complaints. Patient verbalized agreement and understanding with this treatment plan and discharge. Differential Diagnosis Differential Diagnoses: The differential diagnosis associated with the presentation includes yeast infection, scabies Independent Historian Clinical information obtained from an independent historian. History obtained from or confirmed by: EMS (EMS provided history and confirmed history provided by the patient) Discharge Plan Discharge Clinical Impression: Yeast infection, Scabies Patient Disposition: Home, Self-Care Instructions: Scabies (ED), Jock Itch (ED) Additional Instructions: Follow up with your primary care provider and a carnallite plant operator. Return to the emergency department immediately if your symptoms worsen or if you develop any dizziness, shortness of breath, difficulty breathing, chest pain, blurry vision, loss of vision, nausea, vomiting, abdominal pain, fever, chills, back pain, or any other complaints. Prescriptions: New fluconazole [Diflucan] 150 mg tablet 150 mg PO Q3D Qty: 2 0RF ivermectin 3 mg tablet 18,600 mcg PO Q2W Qty: 12.4 0RF No Action levothyroxine 200 mcg tablet 200 mcg PO DAILY@0630 90 Days Qty: 90 0RF omeprazole 20 mg capsule,delayed release(DR/EC) 20 mg PO DAILY@0630 90 Days Qty: 90 0RF losartan 50 mg tablet 50 mg PO DAILY 90 Days Qty: 90 0RF Protocol: Hold for SBP< HOLD for SBP < : 90 albuterol sulfate [Ventolin HFA] 90 mcg/actuation Hfa Aerosol Inhaler 2 puff inhalation Q4H PRN (Reason: bronchospasm) Qty: 6.7 0RF donepezil 5 mg Tablet 5 mg PO BEDTIME 30 Days Qty: 30 0RF divalproex 250 mg Tablet,Delayed Release (Dr/Ec) 250 mg PO BID 30 Days Qty: 60 0RF olanzapine 2.5 mg Tablet 2.5 mg PO BEDTIME 30 Days Qty: 30 0RF trazodone 100 mg Tablet 100 mg PO BEDTIME PRN (Reason: Insomnia) 30 Days Qty: 30 0RF Invega Sustenna 156 mg/mL syringe 156 mg IM QMONTH Qty: 1 0RF atorvastatin 40 mg Tablet 40 mg PO BEDTIME dicyclomine 20 mg Tablet 20 mg PO TID PRN (Reason: Gastrointestinal Spasms Or Cramping) pramipexole 0.125 mg Tablet 0.125 mg PO TID ibuprofen 600 mg Tablet 600 mg PO Q6H PRN (Reason: Pain) fluticasone propionate 50 mcg/actuation [place],Suspension 1 spray INTRANASAL BID Rx Instructions: administer into each nostril tamsulosin [Flomax] 0.4 mg capsule 0.4 mg PO BEDTIME Qty: 90 2RF finasteride 5 mg tablet 5 mg PO DAILY Qty: 90 2RF permethrin 5 % cream 1 appl topical Q14D Qty: 60 0RF Rx Instructions: apply second treatment 14 days after first treatment if live lice remain miconazole nitrate 2 % powder 1 appl topical BID 14 Days Qty: 85 0RF Rx Instructions: apply to groin rash cephalexin 500 mg capsule 500 mg PO QID 7 Days Qty: 28 0RF Referrals: [facility] [Provider Group] (Call to establish and follow up with a carnallite plant operator. ) [facility] [place] [facility] [place] Group] (Call to establish and follow up with a primary care provider. If you already have a primary care provider, please follow up with them.) [facility] [place] [facility] [Provider Group] (Call to establish and follow up with a primary care provider. If you already have a primary care provider, please follow up with them.) [facility] [place] [facility] [Provider Group] (Call to establish and follow up with a primary care provider. If you already have a primary care provider, please follow up with them.) Interventions: ED Discharge Assessment Last Done: 03/26/23 15:37 Discharge Date/Time: 03/26/23 15:37 Print Language: Citizen [place]
== END 2023-03-26 15:37 | disposition home or self-care (01) ==
PROVIDERS: Emergency Provider Emergency Medicine
DX: B86 Scabies (principal); B37.49 Other urogenital candidiasis
CPT/HCPCS: 99282; 99283

== ENCOUNTER 2023-05-04 10:51 | Observation (INO) | payer OTHER, MEDICAID, SELFPAY ==
--- NOTE | ~2023-05-04 | XR_ITS ---
EXAMINATION: XR KNEE, LEFT CLINICAL INFORMATION: Acute left knee pain COMPARISON: Left knee 11/23/2022 TECHNIQUE: Four views of the left knee. FINDINGS: Total knee arthroplasty hardware components appear well seated and in anatomic alignment. No acute fracture is seen. There are scattered vascular calcifications. A small calcific density is noted anterior to the tibial plateau. Small joint effusion. XR/XR knee LT 3V IMPRESSION: Total knee arthroplasty without acute findings.
--- NOTE | ~2023-05-04 | CT_ITS ---
EXAMINATION: CT brain and CT cervical spine without contrast. CLINICAL INDICATION: Acute neck pain and head injury after fall. COMPARISON: CT brain 02/05/2023. TECHNIQUE: 5 mm thin axial and reformatted 2 mm thin sagittal and coronal images of brain were obtained. Subsequently axial 3 mm thin and reformatted 2 mm thin sagittal and coronal images of cervical spine were obtained without contrast. DLP 1134. FINDINGS: Brain: There is no acute intra-axial, extra-axial bleed, masses or midline shift. There is no acute infarction in evolution. There is no edema. The martin to white matter differentiation is maintained normal. There is nonspecific calcification of interhemispheric dura and pineal gland calcification. Bone windows reveal no calvarial abnormality. There is no scalp soft tissue abnormality. Bilateral paranasal sinuses and mastoid air cells are well aerated and clear. Cervical spine: There is mild straightening of cervical lordosis. The vertebral heights, alignment and disc heights are normal. The craniovertebral junction and the C1-C2 alignment is normal. No visible acute fracture, dislocation or subluxation seen. Moderate ventral spurring is seen at the C1-C2, C4-C5 and C5-C6 disc levels. The paravertebral and prevertebral soft tissues are normal. The airways widely patent. The lung apices are clear. CT/CT head/brain wo IV con IMPRESSION: No acute intracranial process seen. There is no acute fracture, dislocation or subluxation in cervical spine. There is degenerative spondylosis cervical spine as described above.
--- NOTE | ~2023-05-04 | CT_ITS ---
EXAMINATION: CT brain and CT cervical spine without contrast. CLINICAL INDICATION: Acute neck pain and head injury after fall. COMPARISON: CT brain 02/05/2023. TECHNIQUE: 5 mm thin axial and reformatted 2 mm thin sagittal and coronal images of brain were obtained. Subsequently axial 3 mm thin and reformatted 2 mm thin sagittal and coronal images of cervical spine were obtained without contrast. DLP 1134. FINDINGS: Brain: There is no acute intra-axial, extra-axial bleed, masses or midline shift. There is no acute infarction in evolution. There is no edema. The martin to white matter differentiation is maintained normal. There is nonspecific calcification of interhemispheric dura and pineal gland calcification. Bone windows reveal no calvarial abnormality. There is no scalp soft tissue abnormality. Bilateral paranasal sinuses and mastoid air cells are well aerated and clear. Cervical spine: There is mild straightening of cervical lordosis. The vertebral heights, alignment and disc heights are normal. The craniovertebral junction and the C1-C2 alignment is normal. No visible acute fracture, dislocation or subluxation seen. Moderate ventral spurring is seen at the C1-C2, C4-C5 and C5-C6 disc levels. The paravertebral and prevertebral soft tissues are normal. The airways widely patent. The lung apices are clear. CT/CT cervical spine wo IV con IMPRESSION: No acute intracranial process seen. There is no acute fracture, dislocation or subluxation in cervical spine. There is degenerative spondylosis cervical spine as described above.
[2023-05-04 11:27] VITALS: BP 153/70; PULSE 65; RESP 16; TEMP 37.1; O2SAT 96; BMI 29.4
[2023-05-04 12:00] LABS: Appearance Urine Clear; Color Urine Yellow; Glucose Urine UA Negative (Negative); Leukocyte Esterase Urine Negative (Negative); Nitrite Urine Negative (Negative); Specific Gravity - Urine 1.015 (1.005-1.025); UMIC TRIGGER UACC YES; Urine Blood Small (1+) (Negative); Urine Ketones 15 mg/dL (Negative); Urine Protein 100 (2+) mg/dL (Neg-Trace)
[2023-05-04 12:07] LABS: Bacteria Urine None Seen (None Seen); Hyaline Casts Urine 0-2 /LPF (0-2); Squamous Epithelial Cell Urine 0-2 /HPF (0-2); WBC Urine 0-5 /HPF (0-5)
--- NOTE | 2023-05-04 13:16 | ED_ITS ---
HPI - Fall General Chief Complaint: Fall Stated Complaint: Fall, R knee pain -LOC Time Seen by Provider: 05/04/23 11:02 Source: patient and EMS Mode of arrival: EMS Limitations: no limitations History of Present Illness HPI Narrative: 72-year-old male presents with an accidental fall. Patient reportedly lost balance. Patient then went to the ground and collapsible was unable to get himself up. He reports left knee pain. He did reportedly hit the left side of his head. Did not lose consciousness. He denies any headache, nausea vomiting. Denies any vision changes. Denies any new focal deficits. He does complain of left knee pain where he had surgery before. The pain that he had is worse with movement and palpation. Does not radiate. There is no numbness or tingling. Patient denies weakness. Patient denies walking with a cane or a walker at home. Patient is not on any blood thinning medications Related Data Home Medications Medication Instructions Recorded Confirmed atorvastatin 40 mg tablet 40 mg PO BEDTIME 11/23/22 05/04/23 dicyclomine 20 mg tablet 20 mg PO TID PRN Gastrointestinal 11/23/22 05/04/23 Spasms Or Cramping fluticasone propionate 50 1 spray intranasal BID 11/23/22 05/04/23 mcg/actuation nasal spray,suspension ibuprofen 600 mg tablet 600 mg PO Q6H PRN Pain 11/23/22 05/04/23 pramipexole 0.125 mg tablet 0.125 mg PO TID 11/23/22 05/04/23 albuterol sulfate 2.5 mg/3 mL 2.5 mg inhalation Q4H PRN 05/04/23 05/04/23 (0.083 %) solution for nebulization Shortness Of Breath furosemide 20 mg tablet 20 mg PO DAILY 05/04/23 05/04/23 potassium chloride 20 mEq 20 meq PO DAILY 05/04/23 05/04/23 tablet,extended release trihexyphenidyl 2 mg tablet 2 mg PO BID 05/04/23 05/04/23 Previous Rx's Medication Instructions Recorded albuterol sulfate 90 mcg/actuation 2 puff inhalation Q4H PRN 01/06/22 aerosol inhaler (Ventolin HFA) bronchospasm #6.7 grams divalproex 250 mg tablet,delayed 250 mg PO BID 30 days #60 tabs 01/06/22 release donepezil 5 mg tablet 5 mg PO BEDTIME 30 days #30 tabs 01/06/22 olanzapine 2.5 mg tablet 2.5 mg PO BEDTIME 30 days #30 tabs 01/06/22 paliperidone palmitate 156 mg/mL 156 mg IM QMONTH #1 mL 01/06/22 intramuscular syringe (Invega Sustenna) trazodone 100 mg tablet 100 mg PO BEDTIME PRN Insomnia 30 01/06/22 days #30 tabs finasteride 5 mg tablet 5 mg PO DAILY #90 tabs 06/13/22 tamsulosin 0.4 mg capsule (Flomax) 0.4 mg PO BEDTIME #90 caps 06/13/22 omeprazole 20 mg capsule,delayed 20 mg PO DAILY@0630 90 days #90 08/29/22 release caps losartan 50 mg tablet 50 mg PO DAILY 90 days #90 tabs 11/21/22 levothyroxine 200 mcg tablet 200 mcg PO DAILY@0630 90 days #90 04/24/23 tabs Allergies Allergy/AdvReac Type Severity Reaction Status Date / Time lisinopril [LISINOPRIL] Allergy Intermediate RASH Verified 04/09/23 14:12 Review of Systems Review of Systems: CONSTITUTIONAL: Denies weight loss, fever and chills. HEENT: Denies changes in vision and hearing. RESPIRATORY: Denies SOB and cough. CV: Denies palpitations no CP. GI: Denies abdominal pain, nausea, vomiting and diarrhea. : Denies dysuria and urinary frequency. MSK: + myalgia and joint pain. SKIN: Denies rash and pruritus. NEUROLOGICAL: Denies headache and syncope. PSYCHIATRIC: Denies recent changes in mood. Denies anxiety and depression. All other ROS are negative unless in HPI PMFSH Past Medical History Medical History Abdominal pain, chronic, right lower quadrant Acquired hypothyroidism Allergic rhinitis Anxiety Benign essential hypertension Benign prostatic hyperplasia with urinary obstruction CAD (coronary artery disease) Constipation COPD (chronic obstructive pulmonary disease) Dementia Diabetes mellitus GERD (gastroesophageal reflux disease) Hypothyroid Insomnia Obesity (BMI 30-39.9) Osteoarthritis Pure hypercholesterolemia Vitamin D deficiency Surgical History History of arthroscopic knee surgery History of cardiac catheterization History of colectomy History of esophagogastroduodenoscopy (EGD) History of excision of pilonidal cyst History of eye surgery History of skin graft Hx of colonoscopy Family History Family History Father Stroke CVD (cerebrovascular disease) Mother Hypertension Social History Social History Household Members: None Housing: Apartment Do you presently have visiting nurse or other home services: Yes (Had [facility] ([facility]) and [facility]) Unable to assess alcohol history related to: Refusing to respond Alcohol intake: never Patient Tobacco Use Status: Former Tobacco user Quit Date: long time ago Tobacco use type: Cigarette and Cigar Years Smoked: unknown e-Cigarette/Vaping Use: Never Used Second Hand Smoke Exposure: No Advance Directives: No service: No Current occupational status: retired Sexual orientation: Straight/Heterosexual Physical Exam Vital Signs: Vital Signs: Last Vital Signs Temp 97.6 F 05/06/23 05:33 Pulse 53 05/06/23 05:33 Resp 16 05/06/23 05:33 BP 182/86 H 05/06/23 05:33 Pulse Ox 96 05/06/23 05:33 O2 Del Method Room Air 05/06/23 05:33 BMI result Body Mass Index 29.4 GEN: Well developed, no acute distress, alert, oriented HEENT: Normocephalic, left cheek/orbital area erythematous and slight swelling consistent with acute contusion, normal external ears, nose appears normal, no oropharyngeal edema or exudates Eyes: Normal to appearance Neck: Cervical collar in place Respiratory: Talks in complete sentences, no respiratory distress, clear to auscultation bilaterally Cardiovascular: Regular rate and rhythm, no murmurs rubs or gallops Abdomen: Soft, nontender, nondistended, no guarding, no rebound Back: No CVA tenderness Extremities: No clubbing cyanosis or edema Neurologic: No focal neurologic deficits, cranial nerves 2-12 intact, strength is 5/5 bilaterally Skin: No rash Course Course Course Narrative: [age] male presents after an accidental fall. Complains of left knee pain. There is also evidence of contusion to the left side of his face. Will obtain a CT scan of the head and neck are currently pending. Also will check some routine lab work because patient was generally weak to the point he was able to help self off the floor. This is abnormal for him. Patient will get a x-ray of the knee to evaluate for acute on chronic knee related issues. Reevaluation(s) Reevaluation #1: Patient's C-spine has not been clear. Patient has removed the cervical collar himself. Patient is requesting to stand up to urinate. I advised against this given the fact that we have not clear his cervical spine there may be an occult unstable fracture. Despite this, patient wishes to continue to stand up to urinate. At this point, patient does have decision making capacity. I will allow the patient to do as he pleases at this time. Hopefully there will be no traumatic injury that we have to be concerned about. Patient is aware of the risks and the reasoning for my advice against getting out of bed until a C- collar can be removed. Reevaluation #2: Patient has evidence of rhabdomyolysis. IV fluids have been ordered. Still awaiting CT scan head and neck results. Time: 15:57 Reevaluation #3: Patient signed out to me for follow-up on CT of head and C-spine. Is my interpretation there are no findings to support intracranial hemorrhage or cervical spine fracture and otherwise my interpretation is in agreement with radiology's impression. Patient is also noted to be hypothyroid based on TSH l evels, however given current rhabdomyolysis would need to be repeated. Time: 18:09 Medications Administered Generic Name Dose Route Start Last Admin Trade Name Leonard PRN Reason Stop Dose Admin Acetaminophen 650 mg 05/04/23 19:41 05/06/23 09:38 Acetaminophen 325 Mg Tablet PO 650 mg Q6H PRN Administration Pain, Mild (Pain Scale 1-3) Atorvastatin Calcium 40 mg 05/04/23 21:00 05/05/23 21:11 Atorvastatin Calcium 40 Mg Tablet PO 40 mg BEDTIME YAYA Administration Divalproex Sodium 250 mg 05/04/23 21:00 05/06/23 09:08 Divalproex Sodium 250 Mg Tablet. PO 250 mg BID YAYA Administration Donepezil HCl 5 mg 05/04/23 21:00 05/05/23 21:11 Donepezil Hcl 5 Mg Tablet PO 5 mg BEDTIME YAYA Administration Enoxaparin Sodium 40 mg 05/04/23 20:00 05/05/23 21:08 Enoxaparin Sodium 40 Mg/0.4 Ml Syringe SUBCUT 40 mg Q24H YAYA Administration Finasteride 5 mg 05/05/23 09:00 05/06/23 09:14 Finasteride 5 Mg Tablet PO 5 mg DAILY YAYA Administration Fluticasone Propionate 1 spray 05/04/23 21:00 05/06/23 09:21 Fluticasone Propionate Nasal 16 Gm [place] NOSTRIL-B Not Given BID YAYA Levothyroxine Sodium 200 mcg 05/06/23 06:00 05/06/23 05:55 Levothyroxine Sodium 100 Mcg Tablet PO 200 mcg DAILY@0600 YAYA Administration Losartan Potassium 50 mg 05/05/23 09:00 05/06/23 09:14 Losartan Potassium 50 Mg Tablet PO 50 mg DAILY YAYA Administration Protocol Olanzapine 2.5 mg 05/04/23 21:00 05/05/23 22:50 Olanzapine 2.5 Mg Tablet PO 2.5 mg BEDTIME YAYA Administration Omeprazole 20 mg 05/05/23 06:30 05/06/23 05:54 Omeprazole 20 Mg Capsule.Dr PO 20 mg DAILY@0630 YAYA Administration Potassium Chloride 20 meq 05/05/23 09:00 05/06/23 10:12 Potassium Chloride Er 20 Meq Tab.Er.Prt PO 20 meq DAILY YAYA Administration Pramipexole Dihydrochloride 0.125 mg 05/04/23 21:00 05/06/23 09:07 Pramipexole Di-Hcl 0.125 Mg Tablet PO 0.125 mg TID YAYA Administration Sodium Chloride 3 ml 05/05/23 00:00 05/06/23 09:16 0.9 % Sodium Chloride Flush 3 Ml Syringe IVFLUSH 3 ml QSHIFT YAYA Administration Tamsulosin HCl 0.4 mg 05/04/23 21:00 05/05/23 21:12 Tamsulosin Hcl 0.4 Mg Capsule PO 0.4 mg BEDTIME YAYA Administration Trazodone HCl 100 mg 05/04/23 20:21 05/05/23 21:10 Trazodone Hcl 100 Mg Tablet PO 100 mg BEDTIME PRN Administration Insomnia Trihexyphenidyl HCl 2 mg 05/04/23 21:00 05/06/23 09:13 Trihexyphenidyl Hcl 2 Mg Tablet PO 2 mg BID YAYA Administration Discontinued Medications Generic Name Dose Route Start Last Admin Trade Name Leonard PRN Reason Stop Dose Admin Sodium Chloride 1,000 mls @ 999 mls/hr 05/04/23 15:45 05/04/23 18:25 Ns IV 05/04/23 16:45 Infused .Q1H1M YAYA Infusion Sodium Chloride 1,000 mls @ 999 mls/hr 05/04/23 18:15 05/04/23 20:18 Ns IV 05/04/23 19:15 Infused .Q1H1M YAYA Infusion Dextrose/Sodium Chloride 1,000 mls @ 100 mls/hr 05/04/23 19:45 05/04/23 20:47 D51/2ns IVCONT Infused .Q10H YAYA Infusion Lactated Ringer's 1,000 mls @ 125 mls/hr 05/04/23 20:45 05/06/23 08:46 Lr IVCONT Infused .Q8H YAYA Infusion Levothyroxine Sodium 200 mcg 05/05/23 06:00 05/05/23 06:46 Levothyroxine Sodium 200 Mcg Tablet PO 200 mcg DAILY@0600 YAYA Administration Olanzapine 2.5 mg 05/05/23 15:57 05/05/23 16:52 Olanzapine 2.5 Mg Tablet PO 05/05/23 15:58 2.5 mg ONCE ONE Administration Medical Decision Making Medical Decision Making [facility] Narrative: 72-year-old male presents with an accidental fall. Patient was on the ground for approximately 1 hour. He did hit his head. Denies loss of consciousness or prodrome symptoms. Examination did not reveal any significant acute abnormalities with the exception of left facial swelling. I suspect this is t raumatic in nature. There is no evidence of orbital falling. There is no step- off. Extraocular movements intact. He denies any tenderness on examination. Given patient's age and comorbidities cervical spine to traumatic injury. Diagnosed fluids subdural hematoma, epidural hematoma subarachnoid hemorrhage, a, acute head injury patient Differential Diagnosis Differential Diagnoses: The differential diagnosis associated with the pre sentation includes (See above) Admission/Observation Consideration of admission/observation: Escalation of care including admission/observation considered (If there is any evidence of significant acute traumatic injury, patient would warrant hospitalization and transfer to a trauma center.) Lab Data [facility] Lab Attestation statement: I reviewed the patient's lab results. 05/04/23 14:53 05/04/23 14:53 Labs: Lab Results 05/04/23 05/04/23 05/04/23 Range/Units 11:49 14:53 14:53 WBC 9.8 (4.8-10.8) X10*3/uL RBC 4.84 (4.60-5.80) X10*6/uL Hgb 14.5 (14.0-18.0) g/dl Hct 44.1 (42.0-52.0) % MCV 91.1 (80.0-98.0) fL MCH 30.0 (27.0-33.0) pg MCHC 32.9 (31.0-36.0) g/dl RDW 13.0 (11.0-16.0) % Plt Count 165 (160-400) X10*3/uL MPV 9.2 L (9.4-12.4) fL Immature Gran % (Auto) 0.3 (0.0-0.4) % Neut % (Auto) 82.9 H (45-73) % Lymph % (Auto) 8.4 L (20-40) % Mckenzie % (Auto) 8.2 (2-11) % Eos % (Auto) 0.0 (0-4) % Baso % (Auto) 0.2 (0-2) % Lymph # (Auto) 0.8 L (1.2-4.9) X10*3/uL Mckenzie # (Auto) 0.8 (0.1-1.2) X10*3/uL Eos # (Auto) 0.0 (0.0-0.4) X10*3/uL Baso # (Auto) 0.0 (0.0-0.2) X10*3/uL Abs Immat Gran (auto) 0.03 (0.00-0.03) X10*3/uL Absolute Neuts (auto) 8.1 (2.0-8.3) x10*3/uL Absolute Nucleated RBC 0.000 (0.0-0.012) X10*3/uL Nucleated RBC % (auto) 0.0 (0.0-0.2) /100WBC Sodium 146 H (135-145) mmol/L Potassium 3.4 (3.3-5.1) mmol/L Chloride 110 H (96-108) mmol/L Carbon Dioxide 26 (22-29) mmol/L Anion Gap 13 (12-20) BUN 16 (9-16) mg/dL Creatinine 0.88 (0.5-1.4) mg/dL Estim Creat Clear Calc 83.0 Estimated GFR > 60 Random Glucose 91 (60-115) mg/dL Calcium 9.5 D (8.4-10.2) mg/dL Total Creatine Kinase (38-174) U/L TSH 26.01 H (0.32-4.0) uIU/mL Free T4 0.80 (0.71-1.85) ng/dL Urine Color Yellow Urine Appearance Clear Urine pH 7.0 (5.0-9.0) Ur Specific [place] 1.015 (1.005-1.025) Urine Protein 100 (2+) H (Neg-Trace) mg/dL Urine Glucose (UA) Negative (Negative) mg/dL Urine Ketones 15 (Negative) mg/dL Urine Blood Small (1+) H (Negative) Urine Nitrite Negative (Negative) Ur Leukocyte Esterase Negative (Negative) Urine RBC 3-5 H (0-2) /HPF Urine WBC 0-5 (0-5) /HPF Ur Squamous Epith Cells 0-2 (0-2) /HPF Urine Bacteria None Seen (None Seen) Hyaline Casts 0-2 (0-2) /LPF 05/04/23 Range/Units 14:53 WBC (4.8-10.8) X10*3/uL RBC (4.60-5.80) X10*6/uL Hgb (14.0-18.0) g/dl Hct (42.0-52.0) % MCV (80.0-98.0) fL MCH (27.0-33.0) pg MCHC (31.0-36.0) g/dl RDW (11.0-16.0) % Plt Count (160-400) X10*3/uL MPV (9.4-12.4) fL Immature Gran % (Auto) (0.0-0.4) % Neut % (Auto) (45-73) % Lymph % (Auto) (20-40) % Mckenzie % (Auto) (2-11) % Eos % (Auto) (0-4) % Baso % (Auto) (0-2) % Lymph # (Auto) (1.2-4.9) X10*3/uL [place]ck[place] # (Auto) (0.1-1.2) X10*3/uL Eos # (Auto) (0.0-0.4) X10*3/uL Baso # (Auto) (0.0-0.2) X10*3/uL Abs Immat Gran (auto) (0.00-0.03) X10*3/uL Absolute Neuts (auto) (2.0-8.3) x10*3/uL Absolute Nucleated RBC (0.0-0.012) X10*3/uL Nucleated RBC % (auto) (0.0-0.2) /100WBC Sodium (135-145) mmol/L Potassium (3.3-5.1) mmol/L Chloride (96-108) mmol/L Carbon Dioxide (22-29) mmol/L Anion Gap (12-20) BUN (9-16) mg/dL Creatinine (0.5-1.4) mg/dL Estim Creat Clear Calc Estimated GFR Random Glucose (60-115) mg/dL Calcium (8.4-10.2) mg/dL Total Creatine Kinase 1117 H (38-174) U/L TSH (0.32-4.0) uIU/mL Free T4 (0.71-1.85) ng/dL Urine Color Urine Appearance Urine pH (5.0-9.0) Ur Specific [place] (1.005-1.025) Urine Protein (Neg-Trace) mg/dL Urine Glucose (UA) (Negative) mg/dL Urine Ketones (Negative) mg/dL Urine Blood (Negative) Urine Nitrite (Negative) Ur Leukocyte Esterase (Negative) Urine RBC (0-2) /HPF Urine WBC (0-5) /HPF Ur Squamous Epith Cells (0-2) /HPF Urine Bacteria (None Seen) Hyaline Casts (0-2) /LPF Independent Interpretation I performed an independent interpretation of an: Plain X-Ray (Left knee: No acute traumatic injury, a prosthesis in place) and CT Scan Radiology Impression Discussion of test interpretation with radiology: I have reviewed the radiologist's reading. Independent Historian Clinical information obtained from an independent historian. History obtained from or confirmed by: EMS Prescription Management I considered prescription management with: Pain Medication Discharge Plan Discharge Clinical Impression: Accidental fall, Contusion of face, Acute pain of left knee, Rhabdomyolysis, Hypothyroid Clinical Impression: (Ruled Out): Compression fracture Patient Disposition: Admitted As Inpatient
--- NOTE | 2023-05-04 13:42 | PC.NURSE ---
pt removed own collar it's not broken . upset with staff d/t collar and requesting imaging to be faster.
--- NOTE | 2023-05-04 14:00 | MHC.EDTECH ---
this pct attempted to draw labs on patient,however patient refused all labs and patient ripped neck collar off and refused to have labs drawn until hes able to stand and urinate. RN aware
[2023-05-04 14:58] LABS: MANUAL DIFF FLAG NO
[2023-05-04 15:00] LABS: Basophils Percent Auto 0.2 % (0-2); Hematocrit 44.1 % (42.0-52.0); Hemoglobin 14.5 g/dl (14.0-18.0); Imm Gran Abs Auto 0.03 X10*3/uL (0.00-0.03); Imm Gran Pct Auto 0.3 % (0.0-0.4); Lymphocytes Absolute Auto 0.8 X10*3/uL (1.2-4.9); Lymphocytes Percent Auto 8.4 % (20-40); Mean Corpuscular HGB Conc 32.9 g/dl (31.0-36.0); Mean Corpuscular Volume 91.1 fL (80.0-98.0); Mean Platelet Volume 9.2 fL (9.4-12.4); Monocytes Absolute Auto 0.8 X10*3/uL (0.1-1.2); Monocytes Percent Auto 8.2 % (2-11); Neutrophils Absolute Auto 8.1 x10*3/uL (2.0-8.3); Neutrophils Percent Auto 82.9 % (45-73); Platelet Count 165 X10*3/uL (160-400); Red Blood Count 4.84 X10*6/uL (4.60-5.80); White Blood Count 9.8 X10*3/uL (4.8-10.8)
[2023-05-04 15:31] LABS: Anion Gap 13 (12-20); Blood Urea Nitrogen 16 mg/dL (9-16); Calcium 9.5 mg/dL (8.4-10.2); Carbon Dioxide 26 mmol/L (22-29); Chloride 110 mmol/L (96-108); Estimated Glomerular Filt Rate > 60; Glucose Random 91 mg/dL (60-115); Potassium 3.4 mmol/L (3.3-5.1); Sodium 146 mmol/L (135-145)
[2023-05-04 15:48] LABS: TSH reflex Free T4 26.01 uIU/mL (0.32-4.0)
[2023-05-04] MEDS: 0.9 % Sodium Chloride 1,000 ML 999 ML IV ×2 (15:50→18:31)
[2023-05-04 17:51] VITALS: BP 177/85; PULSE 57; RESP 16; TEMP 37.3; O2SAT 97
--- NOTE | 2023-05-04 19:46 | PM.IMHP ---
History of Present Illness Date of Service: 05/04/23 Attending physician on admission: Adriana Diallo Chief Complaint: fall 72-year-old male with history of hypothyroidism, hypertension, BPH with LUTS, coronary artery disease s/p cardiac catheterization in 2019, COPD, GERD, diet-controlled type 2 diabetes, hypercholesterolemia, vitamin-D deficiency presented to the ED via EMS for evaluation of a mechanical fall. Per the patient, he lives at home alone but has care worker, Shyam, who checks in 3 times weekly. He does not use any assistive devices. He was walking today and reportedly lost his balance falling to the ground and was unable to get himself up. He did hit the left side of his head but denies any loss of consciousness. He was found by Shyam who called EMS. He denies any recent illness, fevers, chills, headache, nausea, vomiting, blurred vision, diplopia, weakness, paresthesias, palpitations, shortness of breath, lightheadedness, or chest pain. No prodrome prior to the fall. He does report chronic myalgias and abdominal pain but states these have not acutely worsened. He is reporting some discomfort in the left knee and does have history of left TKA. He is not on any blood thinners. On arrival, VSS. Hematology studies unremarkable. Renal function normal. Mild hypernatremia 146, lytes otherwise unremarkable. Total CK 1117. TSH 26.01, free t4 0.80. UA unremarkable. XR left knee s/p TKR no acute findings. Head CT negative for any acute intracranial abnormality. Cervical spine CT negative for any acute fracture, dislocation, or subluxation. In the ED, given D5 1/2 NS. Spoke with patient's mother who expresses concerns about memory impairment, gait ataxia, right arm tremor, difficulty with ADLs. Apparently has followed with Dr. Rafael adams but noted are not available for review, but has consult note from 01/07 suggesting possible parkinsonism. Review of Systems Review of Systems: General: No fevers, malaise, unintentional weight loss HEENT: No blurred vision, diplopia. No sore throat, nasal congestion, rhinorrhea, sinus pain, ear pain Cardiovascular: No chest pain, palpitations, or leg edema Respiratory: No shortness of breath, wheezing, cough GI: No abdominal pain, nausea, vomiting, diarrhea, constipation, melena, hematochezia : No dysuria, hematuria, increased urinary frequency, decreased urinary output MSK: No myalgia, back pain. +left knee pain, +fall Neuro: No headaches, weakness, paresthesias. Skin: No rashes or lesions [facility] Medical History Abdominal pain, chronic, right lower quadrant Acquired hypothyroidism Allergic rhinitis Anxiety Benign essential hypertension Benign prostatic hyperplasia with urinary obstruction CAD (coronary artery disease) Constipation COPD (chronic obstructive pulmonary disease) Dementia Diabetes mellitus GERD (gastroesophageal reflux disease) Hypothyroid Insomnia Obesity (BMI 30-39.9) Osteoarthritis Pure hypercholesterolemia Vitamin D deficiency Family History Father Stroke CVD (cerebrovascular disease) Mother Hypertension Surgical History History of arthroscopic knee surgery History of cardiac catheterization History of colectomy History of esophagogastroduodenoscopy (EGD) History of excision of pilonidal cyst History of eye surgery History of skin graft Hx of colonoscopy Social History Household Members: None Housing: Apartment Do you presently have visiting nurse or other home services: Yes (Had Sunil Case ([facility]) and [facility]) Unable to assess alcohol history related to: Refusing to respond Alcohol intake: never Patient Tobacco Use Status: Former Tobacco user Quit Date: long time ago Tobacco use type: Cigarette and Cigar Years Smoked: unknown e-Cigarette/Vaping Use: Never Used Second Hand Smoke Exposure: No Advance Directives: No service: No Current occupational status: retired Sexual orientation: Straight/Heterosexual Meds Allergies Allergy/AdvReac Type Severity Reaction Status Date / Time lisinopril [LISINOPRIL] Allergy Intermediate RASH Verified 04/09/23 14:12 Active Medications: Current Medications Pharmacy Consult (Consult Rx Perform Med Rec) 1 each MISCELLANE ONCE PRN PRN Reason: Consult order Home Medications Medication Instructions Recorded Confirmed Last Taken Type atorvastatin 40 mg tablet 40 mg PO BEDTIME 11/23/22 05/04/23 Unknown History dicyclomine 20 mg tablet 20 mg PO TID PRN Gastrointestinal 11/23/22 05/04/23 Unknown History Spasms Or Cramping fluticasone propionate 50 1 spray intranasal BID 11/23/22 05/04/23 Unknown History mcg/actuation nasal spray,suspension ibuprofen 600 mg tablet 600 mg PO Q6H PRN Pain 11/23/22 05/04/23 Unknown History pramipexole 0.125 mg tablet 0.125 mg PO TID 11/23/22 05/04/23 Unknown History albuterol sulfate 2.5 mg/3 mL 2.5 mg inhalation Q4H PRN 05/04/23 05/04/23 Unknown History (0.083 %) solution for nebulization Shortness Of Breath furosemide 20 mg tablet 20 mg PO DAILY 05/04/23 05/04/23 Unknown History potassium chloride 20 mEq 20 meq PO DAILY 05/04/23 05/04/23 Unknown History tablet,extended release trihexyphenidyl 2 mg tablet 2 mg PO BID 05/04/23 05/04/23 Unknown History Physical Exam Vital Signs and Narrative: Vital Signs: Last Vital Signs Temp 99.1 F 05/04/23 17:51 Pulse 57 05/04/23 17:51 Resp 16 05/04/23 17:51 BP 177/85 H 05/04/23 17:51 Pulse Ox 97 05/04/23 17:51 O2 Del Method Room Air 05/04/23 17:51 BMI result Body Mass Index 29.4 Constitutional - Awake and Alert, No apparent distress Eyes - PERRLA, EOMI Cardiovascular - S1S2, RRR, No edema Respiratory - Normal lung expansion, Normal respiratory effort, No respiratory distress, CTA bilaterally Gastrointestinal - NT / ND; +BS; No rebound or guarding Extremities - no calf tenderness bilaterally, no swelling Skin - Warm/Dry. scattered superficial abrasions left arm, face, anterior shins Neurological - Alert & oriented x2, disoriented to time, CN II-XII in tact, 4/5 symmetric strength BUE and BLE, resting tremor right hand Psychological - Appropriate affect Results Labs 05/04/23 14:53 05/04/23 14:53 Labs: Laboratory Results - last 24 hr 05/04/23 05/04/23 05/04/23 11:49 14:53 14:53 MCV 91.1 MCH 30.0 MCHC 32.9 RDW 13.0 Plt Count 165 MPV 9.2 L Immature Gran % (Auto) 0.3 Neut % (Auto) 82.9 H Lymph % (Auto) 8.4 L [place] % (Auto) 8.2 Eos % (Auto) 0.0 Baso % (Auto) 0.2 Lymph # (Auto) 0.8 L [place] # (Auto) 0.8 Eos # (Auto) 0.0 Baso # (Auto) 0.0 Abs Immat Gran (auto) 0.03 Absolute Neuts (auto) 8.1 Absolute Nucleated RBC 0.000 Nucleated RBC % (auto) 0.0 Anion Gap 13 Estim Creat Clear Calc 83.0 Estimated GFR > 60 Random Glucose 91 Calcium 9.5 D Total Creatine Kinase TSH 26.01 H Free T4 0.80 Urine Color Yellow Urine Appearance Clear Urine pH 7.0 Ur Specific [place] 1.015 Urine Protein 100 (2+) H Urine Glucose (UA) Negative Urine Ketones 15 Urine Blood Small (1+) H Urine Nitrite Negative Ur Leukocyte Esterase Negative Urine RBC 3-5 H Urine WBC 0-5 Ur Squamous Epith Cells 0-2 Urine Bacteria None Seen Hyaline Casts 0-2 05/04/23 14:53 MCV MCH MCHC RDW Plt Count MPV Immature Gran % (Auto) Neut % (Auto) Lymph % (Auto) [place] % (Auto) Eos % (Auto) Baso % (Auto) Lymph # (Auto) [place] # (Auto) Eos # (Auto) Baso # (Auto) Abs Immat Gran (auto) Absolute Neuts (auto) Absolute Nucleated RBC Nucleated RBC % (auto) Anion Gap Estim Creat Clear Calc Estimated GFR Random Glucose Calcium Total Creatine Kinase 1117 H TSH Free T4 Urine Color Urine Appearance Urine pH Ur Specific [place] Urine Protein Urine Glucose (UA) Urine Ketones Urine Blood Urine Nitrite Ur Leukocyte Esterase Urine RBC Urine WBC Ur Squamous Epith Cells Urine Bacteria Hyaline Casts Imaging Radiologist's Impressions: Impressions Knee X-Ray 05/04/23 12:04 IMPRESSION: Total knee arthroplasty without acute findings. Cervical Spine CT 05/04/23 15:26 IMPRESSION: No acute intracranial process seen. There is no acute fracture, dislocation or subluxation in cervical spine. There is degenerative spondylosis cervical spine as described above. Head CT 05/04/23 15:26 IMPRESSION: No acute intracranial process seen. There is no acute fracture, dislocation or subluxation in cervical spine. There is degenerative spondylosis cervical spine as described above. Assessment and Plan (1) Accidental fall: Status: Acute (2) Elevated CK: Status: Acute Plan 72-year-old male with history of hypothyroidism, hypertension, BPH with LUTS, coronary artery disease s/p cardiac catheterization in 2019, COPD, GERD, diet-controlled type 2 diabetes, hypercholesterolemia, vitamin-D deficiency to be observed for elevated CK following mechanical fall. #Acute elevated CK -CK 1100, renal function normal -Has chronic myalgias, denies acute change -Continue IVF -Follow CK, BMP #Mechanical fall with head injury-no loss of consciousness -?history parkinsonism initially reported by neuro 01/07 -No assistive devices -Head CT negative for acute intracranial abnormality. Cervical spine CT negative for acute fracture, dislocation subluxation. Does show multilevel degenerative changes -PT/OT eval #?Parkinsonism -gait ataxia, memory impairment, rolling tremor right hand -follows outpt with Dr. Hall, but overdue for follow up per patient's mother -Outpt follow up # unspecified dementia -discussed mentation with patient's mother he was reporting mentation is baseline -continue donepezil # hypertension -continue losartan # hypothyroidism -? Medication compliance given TSH 26.01 with normal free T4 -continue levothyroxine # BPH with LUTS -continue Flomax # mood disorder -continue home meds # CAD No chest pain -continue statin # diet-controlled type 2 diabetes -POC glucose -diabetic diet -Humalog on sliding scale # COPD -no acute exacerbation -continue home inhalers, albuterol p.r.n. DVT prophylaxis-Lovenox Full code Pt has resident care technician 3 times weekly, Shyam, however per mother who is only emergency contact, patient struggles with ADLs including dressing and has concerns about patient overall health as mentioned in HPI. Case management to follow Time Spent With Patient Time: Total time managing care of this patient today ____ minutes. Quality Stroke Does the patient have a stroke diagnosis?: No VTE Prior VTE?: No VTE Risk Level:: Medical - moderate - high VTE Device Contraindication: Treatment Not Indicated VTE Drug Contraindication: N/A - Med Ordered
--- NOTE | 2023-05-04 20:10 | PHA.MEDREC ---
Pharmacy Consult ? Medication Reconciliation Pharmacy has completed the medication reconciliation. Spoke with RN raymond mill operator at [facility] ([phone]). Rn verbally went over entire med list. Last invega nikkoenna injection on 04/27/23
[2023-05-04] MEDS: Dextrose 5 % and 0.45 % NaCl 1,000 ML 100 ML IVCONT (20:21)
[2023-05-04] MEDS: Lactated Ringers 1,000 ML 125 ML IVCONT (20:56)
[2023-05-04] MEDS: OLANZapine 2.5 MG TABLET PO (21:00)
[2023-05-04] MEDS: Atorvastatin Calcium 40 MG TABLET PO (21:00)
[2023-05-04] MEDS: Donepezil HCl 5 MG TABLET PO (21:00)
[2023-05-04] MEDS: Tamsulosin HCL 0.4 MG CAPSULE PO (21:00)
[2023-05-04] MEDS: Divalproex Sodium 250 MG TABLET.DR PO (21:00)
--- NOTE | 2023-05-04 21:39 | PC.NURSE ---
Report given to Krupa, Pt will be trasfered to ED overflow. Pt aware of plan.
[2023-05-04] MEDS: Enoxaparin Sodium 40 MG/0.4 ML SYRINGE SUBCUT (22:02)
[2023-05-04] MEDS: Pramipexole Di-HCL 0.125 MG TABLET PO (22:02)
[2023-05-04] MEDS: Fluticasone Propionate Nasal 16 GM SPRAY 1 SPRAY NOSTRIL-B (22:02)
[2023-05-04] MEDS: Trihexyphenidyl HCL 2 MG TABLET PO (22:02)
[2023-05-04] MEDS: traZODone HCL 100 MG TABLET PO (23:47)
[2023-05-05] MEDS: Lactated Ringers 1,000 ML 125 ML IVCONT ×2 (04:20→12:50)
[2023-05-05 06:01] VITALS: BP 166/70; PULSE 60; RESP 16; TEMP 36.8; O2SAT 93
[2023-05-05] MEDS: Omeprazole 20 MG CAPSULE.DR PO (06:09)
[2023-05-05 06:28] LABS: MANUAL DIFF FLAG NO
[2023-05-05 06:33] LABS: Basophils Percent Auto 0.5 % (0-2); Eosinophils Absolute Auto 0.1 X10*3/uL (0.0-0.4); Eosinophils Percent Auto 1.9 % (0-4); Hematocrit 38.7 % (42.0-52.0); Hemoglobin 12.8 g/dl (14.0-18.0); Imm Gran Abs Auto 0.02 X10*3/uL (0.00-0.03); Imm Gran Pct Auto 0.3 % (0.0-0.4); Lymphocytes Absolute Auto 1.2 X10*3/uL (1.2-4.9); Lymphocytes Percent Auto 19.1 % (20-40); Mean Corpuscular HGB Conc 33.1 g/dl (31.0-36.0); Mean Corpuscular Hemoglobin 30.5 pg (27.0-33.0); Mean Corpuscular Volume 92.1 fL (80.0-98.0); Mean Platelet Volume 9.6 fL (9.4-12.4); Monocytes Absolute Auto 0.6 X10*3/uL (0.1-1.2); Monocytes Percent Auto 9.7 % (2-11); Neutrophils Absolute Auto 4.4 x10*3/uL (2.0-8.3); Neutrophils Percent Auto 68.5 % (45-73); Platelet Count 159 X10*3/uL (160-400); Red Cell Distribution Width 13.2 % (11.0-16.0); White Blood Count 6.4 X10*3/uL (4.8-10.8)
[2023-05-05 06:46] LABS: Anion Gap 10 (12-20); Blood Urea Nitrogen 18 mg/dL (9-16); Calcium 8.2 mg/dL (8.4-10.2); Carbon Dioxide 24 mmol/L (22-29); Chloride 110 mmol/L (96-108); Estimated Glomerular Filt Rate > 60; Glucose Random 81 mg/dL (60-115); Potassium 3.3 mmol/L (3.3-5.1); Sodium 141 mmol/L (135-145)
[2023-05-05] MEDS: Levothyroxine Sodium 200 MCG TABLET PO (06:46)
[2023-05-05 08:03] VITALS: BP 166/70; PULSE 60; O2SAT 93
[2023-05-05] MEDS: Losartan Potassium 50 MG TABLET PO (08:39)
[2023-05-05] MEDS: Potassium Chloride ER 20 MEQ TAB.ER.PRT PO (08:40)
[2023-05-05 08:41] VITALS: BP 150/65; PULSE 46; RESP 16; O2SAT 98
[2023-05-05] MEDS: Finasteride 5 MG TABLET PO (08:41)
[2023-05-05] MEDS: Fluticasone Propionate Nasal 16 GM SPRAY 1 SPRAY NOSTRIL-B ×2 (08:41→22:50)
--- NOTE | 2023-05-05 09:55 | MHC.EDTECH ---
patient was washed up after he ate breakfast and his linens changed.
[2023-05-05] MEDS: Trihexyphenidyl HCL 2 MG TABLET PO ×2 (10:03→22:49)
[2023-05-05] MEDS: Pramipexole Di-HCL 0.125 MG TABLET PO ×3 (10:03→22:49)
[2023-05-05] MEDS: Divalproex Sodium 250 MG TABLET.DR PO ×2 (10:03→21:11)
--- NOTE | 2023-05-05 10:34 | PC.NURSE ---
pt up and sitting in recliner, at breakfast, morning meds given, will ctm
--- NOTE | 2023-05-05 12:31 | HO.PM.IMPN ---
Subjective Subjective Date of Service: 05/05/23 Interval History: pain resolved Physical Exam Vital Signs: Vital Signs: Last Vital Signs Temp 98.3 F 05/05/23 06:01 Pulse 46 L 05/05/23 08:41 Resp 16 05/05/23 08:41 BP 150/65 H 05/05/23 08:41 Pulse Ox 98 05/05/23 08:41 O2 Del Method Room Air 05/05/23 08:41 BMI result Body Mass Index 29.4 GEN: Well developed, no acute distress, alert, oriented HEENT: Normocephalic, left cheek/orbital area erythematous and slight swelling consistent with acute contusion, normal external ears, nose appears normal, no oropharyngeal edema or exudates Eyes: Normal to appearance Neck: Cervical collar in place Respiratory: Talks in complete sentences, no respiratory distress, clear to auscultation bilaterally Cardiovascular: Regular rate and rhythm, no murmurs rubs or gallops Abdomen: Soft, nontender, nondistended, no guarding, no rebound Back: No CVA tenderness Extremities: No clubbing cyanosis or edema Neurologic: No focal neurologic deficits, cranial nerves 2-12 intact, strength is 5/5 bilaterally Skin: No rash Objective Data Active Medications Acetaminophen (Acetaminophen 325 Mg Tablet) 650 mg PO Q6H PRN PRN Reason: Pain, Mild (Pain Scale 1-3) Albuterol Sulfate (Albuterol Sulfate (0.083%) 2.5 Mg/3 Ml Vial.Neb) 2.5 mg INHALE Q4H PRN PRN Reason: Shortness Of Breath Albuterol Sulfate (Albuterol Sulfate 90 Mcg 8 Gm Inhaler) 2 puff INHALE Q4H PRN PRN Reason: bronchospasm Atorvastatin Calcium (Atorvastatin Calcium 40 Mg Tablet) 40 mg PO BEDTIME [facility] Last Admin: 05/04/23 21:00 Dose: 40 mg Documented By: SERRANX Dicyclomine HCl (Dicyclomine Hcl 10 Mg Capsule) 20 mg PO TID PRN PRN Reason: Gastrointestinal Spasms Or Cramping Divalproex Sodium (Divalproex Sodium 250 Mg Tablet.) 250 mg PO BID [facility] Last Admin: 05/05/23 10:03 Dose: 250 mg Documented By: BERNARD Docusate Sodium (Docusate Sodium 100 Mg Capsule) 100 mg PO DAILY PRN PRN Reason: Constipation Donepezil HCl (Donepezil Hcl 5 Mg Tablet) 5 mg PO BEDTIME [facility] Last Admin: 05/04/23 21:00 Dose: 5 mg Documented By: LOYD Enoxaparin Sodium (Enoxaparin Sodium 40 Mg/0.4 Ml Syringe) 40 mg SUBCUT Q24H [facility] Last Admin: 05/04/23 22:02 Dose: 40 mg Documented By: AIDEE Finasteride (Finasteride 5 Mg Tablet) 5 mg PO DAILY [facility] Last Admin: 05/05/23 08:41 Dose: 5 mg Documented By: BERNARD Fluticasone Propionate (Fluticasone Propionate Nasal 16 Gm Monitor) 1 spray NOSTRIL-B BID [facility] Last Admin: 05/05/23 08:41 Dose: 1 spray Documented By: BERNARD Lactated Ringer's (Lr) 1,000 mls @ 125 mls/hr IVCONT .Q8H [facility] Last Admin: 05/05/23 04:20 Dose: 125 mls/hr Documented By: BREANNA Levothyroxine Sodium (Levothyroxine Sodium 200 Mcg Tablet) 200 mcg PO DAILY@0600 [facility] Last Admin: 05/05/23 06:46 Dose: 200 mcg Documented By: BREANNA Losartan Potassium (Losartan Potassium 50 Mg Tablet) 50 mg PO DAILY [facility]; Protocol Last Admin: 05/05/23 08:39 Dose: 50 mg Documented By: BERNARD Olanzapine (Olanzapine 2.5 Mg Tablet) 2.5 mg PO BEDTIME [facility] Last Admin: 05/04/23 21:00 Dose: 2.5 mg Documented By: LOYD Omeprazole (Omeprazole 20 Mg Capsule.Dr) 20 mg PO DAILY@0630 [facility] Last Admin: 05/05/23 06:09 Dose: 20 mg Documented By: BREANNA Ondansetron HCl (Ondansetron Hcl 4 Mg/2 Ml Vial) 4 mg IVPUSH Q8H PRN PRN Reason: Nausea and Vomiting Paliperidone Palmitate (Paliperidone Palmitate 156 Mg/Ml Syringe) 156 mg IM Q28D [facility] Pharmacy Consult (Consult Rx Perform Med Rec) 1 each MISCELLANE ONCE PRN PRN Reason: Consult order Potassium Chloride (Potassium Chloride Er 20 Meq Tab.Er.Prt) 20 meq PO DAILY [facility] Last Admin: 05/05/23 08:40 Dose: 20 meq Documented By: BERNARD Pramipexole Dihydrochloride (Pramipexole Di-Hcl 0.125 Mg Tablet) 0.125 mg PO TID [facility] Last Admin: 05/05/23 10:03 Dose: 0.125 mg Documented By: BERNARD Sodium Chloride (0.9 % Sodium Chloride Flush 3 Ml Syringe) 3 ml IVFLUSH QSHIFT [facility] Last Admin: 05/05/23 07:49 Dose: Not Given Documented By: BERNARD Non-Admin Reason: IV Running Tamsulosin HCl (Tamsulosin Hcl 0.4 Mg Capsule) 0.4 mg PO BEDTIME [facility] Last Admin: 05/04/23 21:00 Dose: 0.4 mg Documented By: LOYD Trazodone HCl (Trazodone Hcl 100 Mg Tablet) 100 mg PO BEDTIME PRN PRN Reason: Insomnia Last Admin: 05/04/23 23:47 Dose: 100 mg Documented By: BREANNA Trihexyphenidyl HCl (Trihexyphenidyl Hcl 2 Mg Tablet) 2 mg PO BID [facility] Last Admin: 05/05/23 10:03 Dose: 2 mg Documented By: BERNARD Labs 05/05/23 06:06 05/05/23 06:06 Labs: Laboratory Results - last 24 hr 05/04/23 05/04/23 05/04/23 14:53 14:53 14:53 MCV 91.1 MCH 30.0 MCHC 32.9 RDW 13.0 Plt Count 165 MPV 9.2 L Immature Gran % (Auto) 0.3 Neut % (Auto) 82.9 H Lymph % (Auto) 8.4 L [place] % (Auto) 8.2 Eos % (Auto) 0.0 Baso % (Auto) 0.2 Lymph # (Auto) 0.8 L [place] # (Auto) 0.8 Eos # (Auto) 0.0 Baso # (Auto) 0.0 Abs Immat Gran (auto) 0.03 Absolute Neuts (auto) 8.1 Absolute Nucleated RBC 0.000 Nucleated RBC % (auto) 0.0 Anion Gap 13 Estim Creat Clear Calc 83.0 Estimated GFR > 60 Random Glucose 91 Calcium 9.5 D Total Creatine Kinase 1117 H TSH 26.01 H Free T4 0.80 05/05/23 05/05/23 05/05/23 06:06 06:06 06:06 MCV 92.1 MCH 30.5 MCHC 33.1 RDW 13.2 Plt Count 159 L MPV 9.6 Immature Gran % (Auto) 0.3 Neut % (Auto) 68.5 Lymph % (Auto) 19.1 L [place] % (Auto) 9.7 Eos % (Auto) 1.9 Baso % (Auto) 0.5 Lymph # (Auto) 1.2 [place] # (Auto) 0.6 Eos # (Auto) 0.1 Baso # (Auto) 0.0 Abs Immat Gran (auto) 0.02 Absolute Neuts (auto) 4.4 Absolute Nucleated RBC 0.000 Nucleated RBC % (auto) 0.0 Anion Gap 10 L Estim Creat Clear Calc 87.0 Estimated GFR > 60 Random Glucose 81 Calcium 8.2 L D Total Creatine Kinase 1299 H TSH Free T4 Assessment and Plan (1) Elevated CK: Status: Acute Plan 72M PMH hypothyroidism, hypertension, BPH with LUTS, coronary artery disease s/p cardiac catheterization in 2019, COPD, GERD, diet-controlled type 2 diabetes, hypercholesterolemia, vitamin-D deficiency presented with mechanical fall Acute rhabdo after mechanical fall s/p IVF PT/OT ?Parkinsonism gait ataxia, memory impairment, rolling tremor right hand follows outpt with Dr. Hall, but overdue for follow up per patient's mother Outpt follow up unspecified dementia donepezil hypertension losartan hypothyroidism ?? Medication compliance given TSH 26.01 with normal free T4 continue levothyroxine BPH with LUTS continue Flomax mood disorder -continue home meds CAD No chest pain -continue statin diet-controlled type 2 diabetes -POC glucose -diabetic diet -Humalog on sliding scale COPD -no acute exacerbation -continue home inhalers, albuterol p.r.n. DVT prophylaxis-Lovenox Full code reason for continued hospitalization:placement Time Spent With Patient Time: Total time managing care of this patient today ____ minutes. Quality Stroke Does the patient have a stroke diagnosis?: No VTE Prior VTE?: No VTE Risk Level:: Medical - moderate - high VTE Device Contraindication: Treatment Not Indicated VTE Drug Contraindication: N/A - Med Ordered
[2023-05-05 14:35] LABS: Appearance Urine Clear; Color Urine Yellow; Glucose Urine UA Negative (Negative); Leukocyte Esterase Urine Negative (Negative); Nitrite Urine Negative (Negative); UMIC TRIGGER UACC YES; Urine Blood Trace (Negative); Urine Ketones Negative (Negative); Urine Protein 30 (1+) mg/dL (Neg-Trace)
[2023-05-05 14:38] LABS: Bacteria Urine None Seen (None Seen); Hyaline Casts Urine 0-2 /LPF (0-2); Squamous Epithelial Cell Urine 0-2 /HPF (0-2); WBC Urine 0-5 /HPF (0-5)
--- NOTE | 2023-05-05 16:21 | PC.NURSE ---
waiting for medications to be brought up from pharmacy
[2023-05-05] MEDS: OLANZapine 2.5 MG TABLET PO ×2 (16:52→22:50)
[2023-05-05] MEDS: 0.9 % Sodium Chloride Flush 3 ML SYRINGE IVFLUSH (17:12)
--- NOTE | 2023-05-05 17:39 | PC.NURSE ---
pt refused to be hooked up to LR infusion, disconnected when pt became combative, agitated and aggressive. aware. ordered zyprexa, given per MAR
--- NOTE | 2023-05-05 18:26 | PC.NURSE ---
pt mother at bedside visiting, no distress or agitation noted at this time, pt is curious about admission bed assignment. will ctm
[2023-05-05 19:03] VITALS: BP 158/65; PULSE 51; RESP 16; TEMP 36.8; O2SAT 98
[2023-05-05] MEDS: Enoxaparin Sodium 40 MG/0.4 ML SYRINGE SUBCUT (21:08)
[2023-05-05] MEDS: traZODone HCL 100 MG TABLET PO (21:10)
[2023-05-05] MEDS: Atorvastatin Calcium 40 MG TABLET PO (21:11)
[2023-05-05] MEDS: Donepezil HCl 5 MG TABLET PO (21:11)
[2023-05-05] MEDS: Acetaminophen 325 MG TABLET 650 MG PO (21:11)
[2023-05-05] MEDS: Tamsulosin HCL 0.4 MG CAPSULE PO (21:12)
[2023-05-05 21:28] LABS: Glucose, Whole Blood 129 mg/dL (60-115)
[2023-05-05 21:42] VITALS: BP 187/84; PULSE 50; RESP 18; TEMP 36.3; O2SAT 99
--- NOTE | 2023-05-06 04:47 | PC.NURSE ---
patient refused yo have any IV fluids to be given patient stated he is threatening to have the saline lock taken out patient focused on going home doctor and charged nurse were made aware patient refuse to get in bed patient stated up in recliner patient was encouraged to try to wait for the doctor patient will continue to be monitored for safety
[2023-05-06 05:33] VITALS: BP 182/86; PULSE 53; RESP 16; TEMP 36.4; O2SAT 96
[2023-05-06] MEDS: Omeprazole 20 MG CAPSULE.DR PO (05:54)
[2023-05-06] MEDS: Levothyroxine Sodium 100 MCG TABLET 200 MCG PO (05:55)
[2023-05-06 07:42] LABS: Glucose, Whole Blood 97 mg/dL (60-115)
--- NOTE | 2023-05-06 08:52 | HO.PM.IMPN ---
Subjective Subjective Date of Service: 05/06/23 Interval History: no complaints Physical Exam Vital Signs: Vital Signs: Last Vital Signs Temp 97.6 F 05/06/23 05:33 Pulse 53 05/06/23 05:33 Resp 16 05/06/23 05:33 BP 182/86 H 05/06/23 05:33 Pulse Ox 96 05/06/23 05:33 O2 Del Method Room Air 05/06/23 05:33 BMI result Body Mass Index 29.4 GEN: Well developed, no acute distress, alert, oriented HEENT: Normocephalic, left cheek/orbital area erythematous and slight swelling consistent with acute contusion, normal external ears, nose appears normal, no oropharyngeal edema or exudates Eyes: Normal to appearance Neck: Cervical collar in place Respiratory: Talks in complete sentences, no respiratory distress, clear to auscultation bilaterally Cardiovascular: Regular rate and rhythm, no murmurs rubs or gallops Abdomen: Soft, nontender, nondistended, no guarding, no rebound Back: No CVA tenderness Extremities: No clubbing cyanosis or edema Neurologic: No focal neurologic deficits, cranial nerves 2-12 intact, strength is 5/5 bilaterally Skin: No rash Objective Data Active Medications Acetaminophen (Acetaminophen 325 Mg Tablet) 650 mg PO Q6H PRN PRN Reason: Pain, Mild (Pain Scale 1-3) Last Admin: 05/05/23 21:11 Dose: 650 mg Documented By: JUSTINE Albuterol Sulfate (Albuterol Sulfate (0.083%) 2.5 Mg/3 Ml Vial.Neb) 2.5 mg INHALE Q4H PRN PRN Reason: Shortness Of Breath Albuterol Sulfate (Albuterol Sulfate 90 Mcg 8 Gm Inhaler) 2 puff INHALE Q4H PRN PRN Reason: bronchospasm Atorvastatin Calcium (Atorvastatin Calcium 40 Mg Tablet) 40 mg PO BEDTIME [facility] Last Admin: 05/05/23 21:11 Dose: 40 mg Documented By: JUSTINE Dicyclomine HCl (Dicyclomine Hcl 10 Mg Capsule) 20 mg PO TID PRN PRN Reason: Gastrointestinal Spasms Or Cramping Divalproex Sodium (Divalproex Sodium 250 Mg Tablet.Dr) 250 mg PO BID [facility] Last Admin: 05/05/23 21:11 Dose: 250 mg Documented By: JUSTINE Docusate Sodium (Docusate Sodium 100 Mg Capsule) 100 mg PO DAILY PRN PRN Reason: Constipation Donepezil HCl (Donepezil Hcl 5 Mg Tablet) 5 mg PO BEDTIME [facility] Last Admin: 05/05/23 21:11 Dose: 5 mg Documented By: JUSTINE Enoxaparin Sodium (Enoxaparin Sodium 40 Mg/0.4 Ml Syringe) 40 mg SUBCUT Q24H [facility] Last Admin: 05/05/23 21:08 Dose: 40 mg Documented By: JUSTINE Finasteride (Finasteride 5 Mg Tablet) 5 mg PO DAILY [facility] Last Admin: 05/05/23 08:41 Dose: 5 mg Documented By: BERNARD Fluticasone Propionate (Fluticasone Propionate Nasal 16 Gm [place]) 1 spray NOSTRIL-B BID [facility] Last Admin: 05/05/23 22:50 Dose: 1 spray Documented By: JUSTINE Levothyroxine Sodium (Levothyroxine Sodium 100 Mcg Tablet) 200 mcg PO DAILY@0600 [facility] Last Admin: 05/06/23 05:55 Dose: 200 mcg Documented By: JUSTINE Losartan Potassium (Losartan Potassium 50 Mg Tablet) 50 mg PO DAILY [facility]; Protocol Last Admin: 05/05/23 08:39 Dose: 50 mg Documented By: BERNARD Olanzapine (Olanzapine 2.5 Mg Tablet) 2.5 mg PO BEDTIME [facility] Last Admin: 05/05/23 22:50 Dose: 2.5 mg Documented By: JUSTINE Omeprazole (Omeprazole 20 Mg Capsule.Dr) 20 mg PO DAILY@0630 [facility] Last Admin: 05/06/23 05:54 Dose: 20 mg Documented By: JUSTINE Ondansetron HCl (Ondansetron Hcl 4 Mg/2 Ml Vial) 4 mg IVPUSH Q8H PRN PRN Reason: Nausea and Vomiting Paliperidone Palmitate (Paliperidone Palmitate 156 Mg/Ml Syringe) 156 mg IM Q28D [facility] Pharmacy Consult (Consult Rx Perform Med Rec) 1 each MISCELLANE ONCE PRN PRN Reason: Consult order Potassium Chloride (Potassium Chloride Er 20 Meq Tab.Er.Prt) 20 meq PO DAILY [facility] Last Admin: 05/05/23 08:40 Dose: 20 meq Documented By: BERNARD Pramipexole Dihydrochloride (Pramipexole Di-Hcl 0.125 Mg Tablet) 0.125 mg PO TID [facility] Last Admin: 05/05/23 22:49 Dose: 0.125 mg Documented By: JUSTINE Sodium Chloride (0.9 % Sodium Chloride Flush 3 Ml Syringe) 3 ml IVFLUSH QSHIFT [facility] Last Admin: 05/06/23 04:46 Dose: Not Given Documented By: JUSTINE Non-Admin Reason: Patient Refused Tamsulosin HCl (Tamsulosin Hcl 0.4 Mg Capsule) 0.4 mg PO BEDTIME [facility] Last Admin: 05/05/23 21:12 Dose: 0.4 mg Documented By: JUSTINE Trazodone HCl (Trazodone Hcl 100 Mg Tablet) 100 mg PO BEDTIME PRN PRN Reason: Insomnia Last Admin: 05/05/23 21:10 Dose: 100 mg Documented By: JUSTINE Trihexyphenidyl HCl (Trihexyphenidyl Hcl 2 Mg Tablet) 2 mg PO BID [facility] Last Admin: 05/05/23 22:49 Dose: 2 mg Documented By: JUSTINE Labs 05/05/23 06:06 05/05/23 06:06 Labs: Laboratory Results - last 24 hr 05/05/23 05/05/23 05/06/23 14:18 21:13 07:27 POC Glucose 129 H 97 Urine Color Yellow Urine Appearance Clear Urine pH 6.0 Ur Specific [place] 1.020 Urine Protein 30 (1+) H Urine Glucose (UA) Negative Urine Ketones Negative Urine Blood Trace H Urine Nitrite Negative Ur Leukocyte Esterase Negative Urine RBC 3-5 H Urine WBC 0-5 Ur Squamous Epith Cells 0-2 Urine Bacteria None Seen Hyaline Casts 0-2 Assessment and Plan (1) Elevated CK: Status: Acute Plan 72M PMH hypothyroidism, hypertension, BPH with LUTS, coronary artery disease s/p cardiac catheterization in 2019, COPD, GERD, diet-controlled type 2 diabetes, hypercholesterolemia, vitamin-D deficiency presented with mechanical fall Acute rhabdo after mechanical fall s/p IVF PT/OT ?Parkinsonism gait ataxia, memory impairment, rolling tremor right hand follows outpt with Dr. Hall, but overdue for follow up per patient's mother Outpt follow up unspecified dementia donepezil hypertension losartan hypothyroidism ?? Medication compliance given TSH 26.01 with normal free T4 continue levothyroxine BPH with LUTS continue Flomax mood disorder -continue home meds CAD No chest pain -continue statin diet-controlled type 2 diabetes -POC glucose -diabetic diet -Humalog on sliding scale COPD -no acute exacerbation -continue home inhalers, albuterol p.r.n. DVT prophylaxis-Lovenox Full code reason for continued hospitalization:placement Time Spent With Patient Time: Total time managing care of this patient today ____ minutes. Quality Stroke Does the patient have a stroke diagnosis?: No VTE Prior VTE?: No VTE Risk Level:: Medical - moderate - high VTE Device Contraindication: Treatment Not Indicated VTE Drug Contraindication: N/A - Med Ordered
[2023-05-06] MEDS: Pramipexole Di-HCL 0.125 MG TABLET PO ×2 (09:07→15:40)
[2023-05-06] MEDS: Divalproex Sodium 250 MG TABLET.DR PO (09:08)
[2023-05-06] MEDS: Trihexyphenidyl HCL 2 MG TABLET PO (09:13)
[2023-05-06] MEDS: Losartan Potassium 50 MG TABLET PO (09:14)
[2023-05-06] MEDS: Finasteride 5 MG TABLET PO (09:14)
[2023-05-06] MEDS: 0.9 % Sodium Chloride Flush 3 ML SYRINGE IVFLUSH (09:16)
[2023-05-06] MEDS: Acetaminophen 325 MG TABLET 650 MG PO (09:38)
[2023-05-06] MEDS: Potassium Chloride ER 20 MEQ TAB.ER.PRT PO (10:12)
[2023-05-06 11:10] LABS: COVID-19 Test Negative (Negative); IDNOW Serial# 08D9AD1C
--- NOTE | 2023-05-06 12:01 | PM.DS ---
DS: Providers Provider Date of Service: 05/06/23 Date of admission: 05/04/23 19:41 Primary care physician: Samuel Schneider MD DS: Diagnosis Discharge Diagnosis (1) Elevated CK: Status: Acute DS: Summary Hospital Course Hospital Course: from initial hpi: 72-year-old male with history of hypothyroidism, hypertension, BPH with LUTS, coronary artery disease s/p cardiac catheterization in 2019, COPD, GERD, diet-controlled type 2 diabetes, hypercholesterolemia, vitamin-D deficiency presented to the ED via EMS for evaluation of a mechanical fall.? Per the patient, he lives at home alone but has care worker, Shyam, who checks in 3 times weekly.? He does not use any assistive devices.? He was walking today and reportedly lost his balance falling to the ground and was unable to get himself up.? He did hit the left side of his head but denies any loss of consciousness.? He was found by Shyam who called EMS.? He denies any recent illness, fevers, chills, headache, nausea, vomiting, blurred vision, diplopia, weakness, paresthesias, palpitations, shortness of breath, lightheadedness, or chest pain.? No prodrome prior to the fall.? He does report chronic myalgias and abdominal pain but states these have not acutely worsened.? He is reporting some discomfort in the left knee and does have history of left TKA.? He is not on any blood thinners. On arrival, VSS. Hematology studies unremarkable. Renal function normal. Mild hypernatremia 146, lytes otherwise unremarkable. Total CK 1117. TSH 26.01, free t4 0.80. UA unremarkable. XR left knee s/p TKR no acute findings. Head CT negative for any acute intracranial abnormality. Cervical spine CT negative for any acute fracture, dislocation, or subluxation. In the ED, given D5 1/2 NS. Spoke with patient's mother who expresses concerns about memory impairment, gait ataxia, right arm tremor, difficulty with ADLs. Apparently has followed with Dr. Rafael adams but noted are not available for review, but has consult note from 01/07 suggesting possible parkinsonism. hospital course: Patient was admitted for mild acute rhabdomyolysis after mechanical fall. This resolved with IV fluids. He was seen by physical therapy recommended short-term rehab at senior living facility however patient declined. For question parkinsonism he follows outpatient with Neurology. For unspecified dementia he was continued on Aricept. For hypertension continue losartan. For hypothyroidism he was continued on Synthroid. He had elevated TSH of 26 possibly due to noncompliance. For BPH she was continued on Flomax. For mood disorder was continued on mood stabilizers. For coronary disease is continue statin. Diabetes continue insulin. For COPD he was continued on albuterol as needed. Patient will be discharged home. Time Spent with Patient Time attestation: Total time managing care of this patient today ____ minutes. Discharge coordination time: Greater than 30 minutes Quality: Safe Use of Opioids Does Pt have an Active Cancer Diagnosis on the Problem List?: No Quality: Stroke Does the patient have a stroke diagnosis?: No Physical Exam Vital Signs: Vital Signs: Last Vital Signs Temp 97.6 F 05/06/23 05:33 Pulse 53 05/06/23 05:33 Resp 16 05/06/23 05:33 BP 182/86 H 05/06/23 05:33 Pulse Ox 96 05/06/23 05:33 O2 Del Method Room Air 05/06/23 05:33 BMI result Body Mass Index 29.4 GEN: Well developed, no acute distress, alert, oriented HEENT: Normocephalic, left cheek/orbital area erythematous and slight swelling consistent with acute contusion, normal external ears, nose appears normal, no oropharyngeal edema or exudates Eyes: Normal to appearance Respiratory: Talks in complete sentences, no respiratory distress, clear to auscultation bilaterally Cardiovascular: Regular rate and rhythm, no murmurs rubs or gallops Abdomen: Soft, nontender, nondistended, no guarding, no rebound Back: No CVA tenderness Extremities: No clubbing cyanosis or edema Neurologic: No focal neurologic deficits, cranial nerves 2-12 intact, strength is 5/5 bilaterally Skin: No rash DS: Data Data Completed and Pending Labs on day of discharge: Laboratory Results - last 24 hr 05/05/23 05/05/23 05/06/23 14:18 21:13 07:27 POC Glucose 129 H 97 Urine Color Yellow Urine Appearance Clear Urine pH 6.0 Ur Specific [place] 1.020 Urine Protein 30 (1+) H Urine Glucose (UA) Negative Urine Ketones Negative Urine Blood Trace H Urine Nitrite Negative Ur Leukocyte Esterase Negative Urine RBC 3-5 H Urine WBC 0-5 Ur Squamous Epith Cells 0-2 Urine Bacteria None Seen Hyaline Casts 0-2 COVID-19 ([facility]) COVID-19 Clin Com 05/06/23 10:41 POC Glucose Urine Color Urine Appearance Urine pH Ur Specific [place] Urine Protein Urine Glucose (UA) Urine Ketones Urine Blood Urine Nitrite Ur Leukocyte Esterase Urine RBC Urine WBC Ur Squamous Epith Cells Urine Bacteria Hyaline Casts COVID-19 ([facility]) Negative COVID-19 Clin Com See Note Discharge Plan Discharge Anticipated Discharge Date/Time: 05/06/23 11:59 Patient Disposition: Home Health Service Discharge Diagnosis: fall Referrals: Samuel Schneider MD [Primary Care Provider] - Discharge Medications: Continued omeprazole 20 mg capsule,delayed release(DR/EC) 20 mg PO DAILY@0630 90 Days Qty: 90 0RF losartan 50 mg tablet 50 mg PO DAILY 90 Days Qty: 90 0RF Protocol: Hold for SBP< HOLD for SBP < : 90 levothyroxine 200 mcg tablet 200 mcg PO DAILY@0630 90 Days Qty: 90 0RF albuterol sulfate [Ventolin HFA] 90 mcg/actuation Hfa Aerosol Inhaler 2 puff inhalation Q4H PRN (Reason: bronchospasm) Qty: 6.7 0RF donepezil 5 mg Tablet 5 mg PO BEDTIME 30 Days Qty: 30 0RF divalproex 250 mg Tablet,Delayed Release (Dr/Ec) 250 mg PO BID 30 Days Qty: 60 0RF olanzapine 2.5 mg Tablet 2.5 mg PO BEDTIME 30 Days Qty: 30 0RF trazodone 100 mg Tablet 100 mg PO BEDTIME PRN (Reason: Insomnia) 30 Days Qty: 30 0RF Invega Sustenna 156 mg/mL syringe 156 mg IM QMONTH Qty: 1 0RF Rx Instructions: LAST DOSE ON 04/27/23 atorvastatin 40 mg Tablet 40 mg PO BEDTIME dicyclomine 20 mg Tablet 20 mg PO TID PRN (Reason: Gastrointestinal Spasms Or Cramping) pramipexole 0.125 mg Tablet 0.125 mg PO TID ibuprofen 600 mg Tablet 600 mg PO Q6H PRN (Reason: Pain) fluticasone propionate 50 mcg/actuation [place],Suspension 1 spray INTRANASAL BID Rx Instructions: administer into each nostril tamsulosin [Flomax] 0.4 mg capsule 0.4 mg PO BEDTIME Qty: 90 2RF finasteride 5 mg tablet 5 mg PO DAILY Qty: 90 2RF albuterol sulfate 2.5 mg /3 mL (0.083 %) Solution For Nebulization 2.5 mg INHALATION Q4H PRN (Reason: Shortness Of Breath) furosemide 20 mg Tablet 20 mg PO DAILY trihexyphenidyl 2 mg Tablet 2 mg PO BID Rx Instructions: give with food (meal/snack) potassium chloride 20 mEq Tablet Extended Release 20 meq PO DAILY Discharge Orders: Discharge Order (Routine); Ordered 05/06/23 Ordered By: Ponce Mackey Diet: Advance to usual diet Activity on Discharge: As tolerated Stand Alone Forms: Patient Portal Discharge page Care Plan Goals: avoid falls Health Concerns: falls Plan of Treatment: follow up with neuro Assessment: see above Patient Instructions: Fall Prevention for Older Adults (ED), Head Injury (ED), Knee Pain (ED), Facial Contusion (ED)
--- NOTE | 2023-05-06 12:32 | MHC.CM.PN ---
Met with patient in regards to discharge planning. Patient is well known to T/W. Patient lives alone, ambulates independently, has a STEPDOWN NURSE and is active with [facility]. PCP verified. HCP completed, signed, and witnessed. Original given to patient. Copy placed in chart. Obs notice explained and signed. Physical therapy and occupational therapy are recommending short term rehab. Patient is not interested in going to [facility] and wants to return home with [facility]. Patient's mother will transport patient home. Dr Mackey made aware. Sunil COLE made aware. Continue to monitor for d/c needs.
== END 2023-05-06 15:45 | disposition home health service (06) ==
LOC: HO.ED 18:11 → HO.EDOVER 19:56
PROVIDERS: Student in an Organized Health Care Education/Training Program; Admitting Provider Physician Assistant; Emergency Provider Emergency Medicine; PCP Internal Medicine; Visit Provider Internal Medicine
DX: S09.90XA Unspecified injury of head, initial encounter (principal); S89.92XA Unspecified injury of left lower leg, initial encounter; W18.30XA Fall on same level, unspecified, initial encounter; Y93.01 Activity, walking, marching and hiking; Y92.9 Unspecified place or not applicable; M25.562 Pain in left knee; E03.9 Hypothyroidism, unspecified; I10 Essential (primary) hypertension; N40.1 Benign prostatic hyperplasia with lower urinary tract symptoms; I25.10 Atherosclerotic heart disease of native coronary artery without angina pectoris; E11.8 Type 2 diabetes mellitus with unspecified complications; E55.9 Vitamin D deficiency, unspecified; J44.9 Chronic obstructive pulmonary disease, unspecified; K21.9 Gastro-esophageal reflux disease without esophagitis; Z96.652 Presence of left artificial knee joint; Z20.822 Contact with and (suspected) exposure to COVID-19
CPT/HCPCS: 36415; 70450; 72125; 73562; 80048; 81001; 82550; 82947; 84439; 84443; 85025; 87635; 96360; 96361; 96372; 97110; 97162; 97166; 99222; 99285; J1650

== ENCOUNTER → 2023-05-04 19:41 | Outpatient (BNV) | payer MEDICARE, MEDICAID, SELFPAY | PROVIDERS: Admitting Provider Physician Assistant; Emergency Provider Emergency Medicine; PCP Internal Medicine; Visit Provider Physician Assistant | DX: R74.8 Abnormal levels of other serum enzymes (principal) | CPT/HCPCS: 99223; 99232; 99239 ==

== ENCOUNTER 2023-05-26 10:26 | Outpatient (AMB) | payer OTHER, MEDICAID, SELFPAY ==
[2023-05-26 10:28] VITALS: BP 160/90; PULSE 61; O2SAT 97; BMI 28.5
--- NOTE | 2023-05-26 10:28 | MHC.PC.OV ---
Vital Signs 05/26/23 10:28 Height 5 ft 9 in Weight 193 lb 2 oz BMI 28.5 BP 160/90 H Blood Pressure Location Lt brachial Position Sitting Pulse 61 Pulse Source Pulse Oximeter Pulse Oximetry (%) 97 Oxygen Delivery Method Room Air Intake Visit Reasons: Discuss Neurology Referral Enrollment Specialist Required: No Accompanied by: Self / Same As Patient Allergies lisinopril [LISINOPRIL] Allergy (Intermediate, Verified 05/26/23 11:46) RASH Medication List - Last Reconciled 05/26/23 by Samuel Schneider MD albuterol sulfate 90 mcg/actuation (Ventolin HFA) 2 puffs inhalation Q4H PRN albuterol sulfate 2.5 mg inhalation Q4H PRN atorvastatin 40 mg PO BEDTIME dicyclomine 20 mg PO TID PRN divalproex 250 mg PO BID 30 days donepezil 5 mg PO BEDTIME 30 days finasteride 5 mg PO DAILY fluticasone propionate 50 mcg/actuation 1 spray intranasal BID furosemide 20 mg PO DAILY ibuprofen 600 mg PO Q6H PRN levothyroxine 200 mcg PO DAILY@0630 90 days losartan 50 mg See Protocol PO DAILY 90 days olanzapine 2.5 mg PO BEDTIME 30 days omeprazole 20 mg PO DAILY@0630 90 days paliperidone palmitate (Invega Sustenna) 156 mg IM QMONTH potassium chloride ER 20 mEq PO DAILY pramipexole 0.125 mg PO TID tamsulosin (Flomax) 0.4 mg PO BEDTIME trazodone 100 mg PO BEDTIME PRN 30 days trihexyphenidyl 2 mg PO BID Tobacco use date assessed: 05/26/23 Fall risk assessment: 1 Fall in past year Last assessed Fall Risk: 05/26/23 Dental Screening Dental Screen Date: 05/26/23 Did you have a dental visit in the last 12 months?: No Did you have a dental problem in the last 6 months where you did not have access to dental care?: No Was dental information given to patient?: Patient has dentist HPI Discuss Neurology Referral HPI Details Patient comes in today for his follow up visit and to request for another neurology referral Patient was last seen by me over 18 months ago in November 2021 although he has been seen by one of our gambling dealer here last month His mother states that patient is very unsteady and was admitted to [facility] for a couple of days last month following a fall Patient and his mother feels that his unsteadiness is more related to his medications and is requesting for another neurology referral for further evaluation He was referred to and seen by neurology (Dr. 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 Hall and did not go back to see him again since Patient states that he feels okay otherwise He denies any headaches or dizziness Denies any chest pains, no increased SOB No nausea/vomiting, still has chronic right-sided abdominal pain but states that this has been more tolerable lately No change in bowel habits noted His mother adds that patient does not sleep well at night and is wondering if there is anything he can take for this [facility] Medical History (Updated 05/26/23 @ 12:16 by Samuel Schneider MD) Abdominal pain, chronic, right lower quadrant Acquired hypothyroidism Allergic rhinitis Anxiety Benign essential hypertension Benign prostatic hyperplasia with urinary obstruction CAD (coronary artery disease) Constipation COPD (chronic obstructive pulmonary disease) Dementia Diabetes mellitus GERD (gastroesophageal reflux disease) Hypothyroid Insomnia Obesity (BMI 30-39.9) Osteoarthritis Overweight (BMI 25.0-29.9) Pure hypercholesterolemia Vitamin D deficiency Surgical History History of arthroscopic knee surgery History of cardiac catheterization History of colectomy History of esophagogastroduodenoscopy (EGD) History of excision of pilonidal cyst History of eye surgery History of skin graft Hx of colonoscopy Family History Father Stroke CVD (cerebrovascular disease) Mother Hypertension Social History Household Members: None Housing: Apartment Do you presently have visiting nurse or other home services: Yes (Had [facility] ([facility]) and [facility]) Unable to assess alcohol history related to: Refusing to respond Alcohol intake: never Patient Tobacco Use Status: Former Tobacco user Quit Date: long time ago Tobacco use type: Cigarette and Cigar Years Smoked: unknown e-Cigarette/Vaping Use: Never Used Second Hand Smoke Exposure: No service: No Current occupational status: retired Sexual orientation: Straight/Heterosexual Cognitive needs: No Hearing needs: No Vision needs: No Questionnaire PHQ-9 Over the last 2 weeks, how often have you been bothered by any of the following problems? 1. Little interest or pleasure in doing things: not at all 2. Feeling down, depressed, or hopeless: not at all 3. Trouble falling or staying asleep, or sleeping too much: not at all 4. Feeling tired or having little energy: not at all 5. Poor appetite or overeating: not at all 6. Feeling bad about yourself - or that you are a failure or have let yourself or your family down: not at all 7. Trouble concentrating on things, such as reading the newspaper or watching television: not at all 8. Moving or speaking so slowly that other people could have noticed. Or the opposite - being so fidgety or restless that you have been moving around a lot more than usual: not at all 9. Thoughts that you would be better off or of hurting yourself in some way: not at all Total score: 0 Depression Screening Interpretation: Positive Depression Screening Follow-up: Existing condition and In treatment 08526 - PHQ-9 Billing: Yes Source: Developed by Drs. Michael Melendez, Christina Lopes, Arturo Witt and colleagues, with an educational amanda from [employer]. Thrive Questionnaire Date Thrive assessed: 05/26/23 I am a: Patient What is your living situation today?: I have a steady place to live Within the past 12 months, did the food you bought not last and you didn't have the money to get more?: Never true Within the past 12 months, did you worry whether your food would run out before you got money to buy more?: Never true Do you have trouble paying for medicines?: No Do you have trouble getting transportation to medical appointments?: No Do you have trouble paying your heating and electricity bill?: No Do you have trouble taking care of your child, family member or friend?: No Do you have trouble with day-to-day activities such as bathing, preparing meals, shopping, managing finances, etc.?: No Are you currently unemployed and looking for a job?: No Are you interested in more education?: No Please select the resources that you would like help with: None Currently or been in a relationship where the following occur: no concerns reported AUDIT C Alcohol Use Questionnaire (AUDIT-C) 1. How often do you have a drink containing alcohol?: Monthly or less 2. How many drinks containing alcohol do you have on a typical day when you are drinking?: 1 or 2 3. How often do you have six or more drinks on one occasion?: Never Total Score: 1 Score Reviewed/Action Taken: Yes MARI-7 AMB Questionnaire MARI-7 Date MARI - 7 assessed: 05/26/23 Feeling nervous, anxious, or on edge: 0 = Not at all Not being able to stop or control worryin = Not at all Worrying too much about different things: 0 = Not at all Trouble relaxin = Not at all Being so restless that it is hard to sit still: 0 = Not at all Becoming easily annoyed or irritable: 0 = Not at all Feeling afraid as if something awful might happen: 0 = Not at all Total MARI-7 score (0-4 normal; 5-9 mild; 10-14 moderate; 15-21 severe): 0 Source: Developed by Drs. Michael Melendez, Christina Lopes, Arturo Witt and colleagues, with an educational amanda from [employer]. Review of Systems Const Denies chills, Reports difficulty sleeping, Reports fatigue, Denies fever(s) and Denies headache(s) ENT Denies dysphagia, Denies dizziness, Denies otalgia, Denies headache(s), Denies neck pain, Denies odynophagia and Denies sore throat Card Denies chest pain, Denies palpitations and Reports dyspnea on exertion (mild) Resp Denies chest congestion, Reports cough (coughs up thick phlegm at times), Denies pain with cough, Reports dyspnea on exertion (mild) and Denies wheezing GI Reports abdominal pain (right-sided - chronic), Denies constipation, Denies dysphagia, Denies heartburn, Denies diarrhea, Denies nausea, Denies odynophagia and Denies vomiting Details: was not able to urinate on his own this morning and had to go to the ER for straight cath Denies hematuria, Denies difficulty urinating, Denies nocturia and Denies urinary frequency Musc Reports abnormal gait (unsteady gait) and Denies neck pain Neuro Reports abnormal gait (unsteady gait), Denies dizziness, Denies headache(s), Reports memory loss and Reports tremor(s) Psych Reports anxiety (increasing) and Reports memory loss Endo Reports fatigue and Denies palpitations Donte/Lymph Details: (+) on and off swelling of both legs and feet Aller/Immun Denies wheezing Physical exam (Primary Care) Vital Signs: Last Vital Signs Pulse 61 05/26/23 10:28 BP 160/90 H 05/26/23 10:28 Pulse Ox 97 05/26/23 10:28 Oxygen Delivery Method Room Air 05/26/23 10:28 BMI result Body Mass Index 28.5 Tobacco/Smoking Status: Tobacco use Status Tobacco use date assessed 05/26/23 05/26/23 10:36 Patient Tobacco Use Status Former Tobacco user 05/26/23 10:36 Tobacco use type Cigarette,Cigar 05/26/23 10:36 e-Cigarette/Vaping Use Never Used 05/26/23 10:36 PHQ-9: PHQ-9 Score PHQ-9: Total score 0 05/26/23 11:03 Depression Screening Interpretation: Positive Depression Screening Follow-up: Existing condition and In treatment Thrive Assessment: Date of Thrive Assessment Date Thrive assessed 05/26/23 05/26/23 10:36 Currently or been in a relationship where the following occur: no concerns reported Const General: no acute distress and alert HENMT Ears: TM's normal bilaterally and EAC's normal Face and sinus: Yes sinuses nontender Throat: Yes posterior oropharynx normal and Yes tonsils normal (no TP congestion noted) Neck Neck: Yes no lymphadenopathy and Yes supple Resp Auscultation: clear to auscultation bilaterally, no rales, rhonchi (occasional) upper bilaterally and no wheezes Cardio Rate: regular rate Rhythm: regular rhythm Heart sounds: no murmurs GI Palpation (GI): Soft to palpation, Tenderness to palpation present (GI) in the RLQ (mild; chronic), no guarding, not rigid, no masses and No Rebound tenderness present Auscultation: normal bowel sounds Skin Rashes: no rashes Neuro Gait exam (Neuro): Shuffling gait present Motor exam (neuro): Tremors during motor activity present (on and off in both upper extremities) Extrem General: No clubbing, No cyanosis and Yes edema (1+ bipedal edema) Assessment and Plan Assessment & Plan (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, unspecified Qualifiers: Secondary Parkinsonism type: other drug-induced Qualified Code(s): 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 Hall; will refer to Dr. Jefferson instead (2) Dementia: Code(s): F03.90 - Unspecified dementia, unspecified severity, without behavioral disturbance, psychotic disturbance, mood disturbance, and anxiety Qualifiers: Dementia type: unspecified type Dementia severity: unspecified severity Dementia behavioral or psychological symptom: unspecified whether behavioral, psychotic, or mood disturbance or anxiety Qualified Code(s): F03.90 - Unspecified dementia, unspecified severity, without behavioral disturbance, psychotic disturbance, mood disturbance, and anxiety Plan: Continue Donepezil 5 mg QD Will refer again to neurology for further evaluation and management (3) Abdominal pain, chronic, right lower quadrant: Code(s): R10.31 - Right lower quadrant pain; G89.29 - Other chronic pain Plan: Patient has had extensive workups done for his abdominal pain, including x-rays, ultrasound, CTs and even a recent colonoscopy over the past few years, with all of his tests coming back negative / unrevealing He has been advised that most of his recurrent abdominal symptoms are likely due to scar tissues or adhesions from his previous surgery (colectomy) and that there are likely no effective corrective therapy for this Follow-up with GI and with surgery as scheduled (4) CAD (coronary artery disease): Code(s): I25.10 - Atherosclerotic heart disease of [place] coronary artery without angina pectoris Qualifiers: Coronary Disease-Associated Artery/Lesion type: [place] artery [place] vs. transplanted heart: [place] heart Associated angina: without angina Qualified Code(s): I25.10 - Atherosclerotic heart disease of [place] coronary artery without angina pectoris Plan: Cardiac catheterization done at [facility] in 2019 reportedly came back normal Follow up with Cardiology as scheduled (5) GERD (gastroesophageal reflux disease): Code(s): K21.9 - Gastro-esophageal reflux disease without esophagitis Qualifiers: Esophagitis presence: without esophagitis Qualified Code(s): K21.9 - Gastro-esophageal reflux disease without esophagitis Plan: Dietary restrictions reinforced Continue Omeprazole 20 mg QD (6) Benign prostatic hyperplasia with urinary obstruction: Code(s): N40.1 - Benign prostatic hyperplasia with lower urinary tract symptoms; N13.8 - Other obstructive and reflux uropathy Plan: Continue Finasteride 5 mg QD and Tamsulosin 0.4 mg QD Follow up with urology as scheduled (7) Benign essential hypertension: Code(s): I10 - Essential (primary) hypertension Plan: Reinforced low-sodium diet -? is systolic BP of at least 130 mm Continue Losartan 50 mg QD (8) Diabetes mellitus: Code(s): E11.9 - Type 2 diabetes mellitus without complications Qualifiers: Diabetes mellitus type: type 2 Diabetes mellitus glass designer insulin use: without glass designer use Diabetes mellitus complication status: without complication Qualified Code(s): E11.9 - Type 2 diabetes mellitus without complications Plan: In-office HgbA1c was normal at 5.4% when last checked a year ago in December 2021 Reinforced diabetic diet - diabetes appears corrected/controlled currently and no Rx is required at this time (9) Pure hypercholesterolemia: Code(s): E78.00 - Pure hypercholesterolemia, unspecified Plan: Reinforced low cholesterol diet Continue Atorvastatin 40 mg QD Patient recently had some labs done when he was admitted to [facility] last month - labs were mostly within normal/acceptable range (10) Acquired hypothyroidism: Code(s): E03.9 - Hypothyroidism, unspecified Plan: Continue Synthroid 200 mcg QD (11) Constipation: Code(s): K59.00 - Constipation, unspecified Qualifiers: Constipation type: unspecified constipation type Qualified Code(s): K59.00 - Constipation, unspecified Plan: Encouraged again on increased oral fluids and dietary fiber Continue MiraLax 17 g once a day and Senna 8.6 mg 2 tablets daily at bedtime as needed (12) Osteoarthritis: Code(s): M19.90 - Unspecified osteoarthritis, unspecified site Qualifiers: Osteoarthritis location: unspecified site Osteoarthritis type: primary Qualified Code(s): M19.91 - Primary osteoarthritis, unspecified site Plan: Continue Tramadol 50 mg 3 times a day as needed for pain (13) Insomnia: Code(s): G47.00 - Insomnia, unspecified Qualifiers: Insomnia type: unspecified Qualified Code(s): G47.00 - Insomnia, unspecified Plan: Sleep hygiene reinforced Continue Trazodone 100 mg daily at bedtime as needed Have advised patient's mother that they ideally need to discuss his issues with sleep with psychiatry (14) Bipolar affective, manic, severe w/ psych: Code(s): F31.2 - Bipolar disorder, current episode manic severe with psychotic features Plan: Continue Olanzapine 2.5 mg Q HS, Depakote ER 250 mg BID and Invega Sustenna 156 mg IM once a month Follow-up with Psychiatry as scheduled (15) Overweight (BMI 25.0-29.9): Code(s): E66.3 - Overweight Plan: Reinforced diet; exercise is unrealistic given patient's Parkinson's disease and comorbidities Plan Follow up in 3 months Orders: Referrals Neurology Referral F31.2 - Bipolar disorder, current episode manic severe with psychotic features, G21.9 - Secondary parkinsonism, unspecified Coding Level of Care Code Est Pt Level 4 (30885) Diagnoses Secondary parkinsonism G21.19 Secondary Parkinsonism type: other drug-induced Dementia F03.90 Dementia type: unspecified type Dementia severity: unspecified severity Dementia behavioral or psychological symptom: unspecified whether behavioral, psychotic, or mood disturbance or anxiety Abdominal pain, chronic, right lower quadrant R10.31; G89.29 CAD (coronary artery disease) I25.10 Coronary Disease-Associated Artery/Lesion type: [place] artery [place] vs. transplanted heart: [place] heart Associated angina: without angina GERD (gastroesophageal reflux disease) K21.9 Esophagitis presence: without esophagitis Benign prostatic hyperplasia with urinary obstruction N40.1; N13.8 Benign essential hypertension I10 Diabetes mellitus E11.9 Diabetes mellitus type: type 2 Diabetes mellitus mcc insulin use: without glass designer use Diabetes mellitus complication status: without complication Pure hypercholesterolemia E78.00 Acquired hypothyroidism E03.9 Constipation K59.00 Constipation type: unspecified constipation type Osteoarthritis M19.91 Osteoarthritis location: unspecified site Osteoarthritis type: primary Insomnia G47.00 Insomnia type: unspecified Bipolar affective, manic, severe w/ psych F31.2 Overweight (BMI 25.0-29.9) E66.3
== END 2023-05-26 11:11 | disposition home or self-care (01) ==
PROVIDERS: PCP Internal Medicine; Visit Provider Internal Medicine
DX: I10 Essential (primary) hypertension (principal); G21.19 Other drug induced secondary parkinsonism; F03.90 Unspecified dementia, unspecified severity, without behavioral disturbance, psychotic disturbance, mood disturbance, and anxiety; K21.9 Gastro-esophageal reflux disease without esophagitis; E11.9 Type 2 diabetes mellitus without complications; E03.9 Hypothyroidism, unspecified; G89.29 Other chronic pain; R10.31 Right lower quadrant pain; I25.10 Atherosclerotic heart disease of native coronary artery without angina pectoris; N40.1 Benign prostatic hyperplasia with lower urinary tract symptoms; N13.8 Other obstructive and reflux uropathy; E78.00 Pure hypercholesterolemia, unspecified
CPT/HCPCS: 99214

== ENCOUNTER 2023-06-19 12:53 | Outpatient (AMB) | payer MEDICARE, MEDICAID, SELFPAY ==
[2023-06-19 12:54] VITALS: BP 124/78; PULSE 57; O2SAT 98; BMI 28.3
--- NOTE | 2023-06-19 12:54 | MHC.PC.OV ---
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 Required: No Accompanied by: Self / Same As Patient Allergies lisinopril [LISINOPRIL] Allergy (Intermediate, Verified 06/19/23 13:21) RASH Medication List - Last Reconciled 06/19/23 by Samuel Schneider MD albuterol sulfate 90 mcg/actuation (Ventolin HFA) 2 puffs inhalation Q4H PRN albuterol sulfate 2.5 mg inhalation Q4H PRN atorvastatin 40 mg PO BEDTIME dicyclomine 20 mg PO TID PRN divalproex 250 mg PO BID 30 days donepezil 5 mg PO BEDTIME 30 days finasteride 5 mg PO DAILY fluticasone propionate 50 mcg/actuation 1 spray intranasal BID furosemide 20 mg PO DAILY ibuprofen 600 mg PO Q6H PRN levothyroxine 200 mcg PO DAILY@0630 90 days losartan 50 mg See Protocol PO DAILY 90 days olanzapine 2.5 mg PO BEDTIME 30 days omeprazole 20 mg PO DAILY@0630 90 days paliperidone palmitate (Invega Sustenna) 156 mg IM QMONTH potassium chloride ER 20 mEq PO DAILY pramipexole 0.125 mg PO TID tamsulosin (Flomax) 0.4 mg PO BEDTIME trazodone 100 mg PO BEDTIME PRN 30 days trihexyphenidyl 2 mg PO BID Tobacco use date assessed: 06/19/23 Fall risk assessment: 2 + Falls in past year Last assessed Fall Risk: 06/19/23 Dental Screening Dental Screen Date: 06/19/23 Did you have a dental visit in the last 12 months?: No Did you have a dental problem in the last 6 months where you did not have access to dental care?: No Was dental information given to patient?: Patient has dentist [facility] HPI Details Patient comes in today for his annual physical examination States that he feels okay He denies any headaches or dizziness Denies any chest pains, no shortness of breath No nausea/ vomiting, no abdominal pain - his previous recurrent /chronic right-sided abdominal pain appears to have subsided and have not bothered him for the past few months new No change in bowel habits noted Denies any acute urinary sympyoms He had some labs done last month - to discuss his results His last colonoscopy was done back in 2014 and he has never had this repeated since [facility] Medical History Abdominal pain, chronic, right lower quadrant Acquired hypothyroidism Allergic rhinitis Anxiety Benign essential hypertension Benign prostatic hyperplasia with urinary obstruction CAD (coronary artery disease) Constipation COPD (chronic obstructive pulmonary disease) Dementia Diabetes mellitus GERD (gastroesophageal reflux disease) Hypothyroid Insomnia Obesity (BMI 30-39.9) Osteoarthritis Overweight (BMI 25.0-29.9) Pure hypercholesterolemia Vitamin D deficiency Surgical History History of arthroscopic knee surgery History of cardiac catheterization History of colectomy History of esophagogastroduodenoscopy (EGD) History of excision of pilonidal cyst History of eye surgery History of skin graft Hx of colonoscopy Family History Father Stroke CVD (cerebrovascular disease) Mother Hypertension Social History Household Members: None Housing: Apartment Do you presently have visiting nurse or other home services: Yes (Had Sunil Case ([facility]) and [facility]) Unable to assess alcohol history related to: Refusing to respond Alcohol intake: never Patient Tobacco Use Status: Former Tobacco user Quit Date: long time ago Tobacco use type: Cigarette and Cigar Years Smoked: unknown e-Cigarette/Vaping Use: Never Used Second Hand Smoke Exposure: No service: No Current occupational status: retired Sexual orientation: Straight/Heterosexual Cognitive needs: No Hearing needs: No Vision needs: No Questionnaire PHQ-9 Over the last 2 weeks, how often have you been bothered by any of the following problems? 1. Little interest or pleasure in doing things: not at all 2. Feeling down, depressed, or hopeless: not at all 3. Trouble falling or staying asleep, or sleeping too much: not at all 4. Feeling tired or having little energy: not at all 5. Poor appetite or overeating: not at all 6. Feeling bad about yourself - or that you are a failure or have let yourself or your family down: not at all 7. Trouble concentrating on things, such as reading the newspaper or watching television: not at all 8. Moving or speaking so slowly that other people could have noticed. Or the opposite - being so fidgety or restless that you have been moving around a lot more than usual: not at all 9. Thoughts that you would be better off or of hurting yourself in some way: not at all Total score: 0 Depression Screening Interpretation: Positive Depression Screening Follow-up: Existing condition and In treatment 81507 - PHQ-9 Billing: Yes Source: Developed by Drs. Michael Melendez, Christina Lopes, Arturo Witt and colleagues, with an educational amanda from [employer]. Thrive Questionnaire Date Thrive assessed: 06/19/23 I am a: Patient What is your living situation today?: I have a steady place to live Within the past 12 months, did the food you bought not last and you didn't have the money to get more?: Never true Within the past 12 months, did you worry whether your food would run out before you got money to buy more?: Never true Do you have trouble paying for medicines?: No Do you have trouble getting transportation to medical appointments?: No Do you have trouble paying your heating and electricity bill?: No Do you have trouble taking care of your child, family member or friend?: No Do you have trouble with day-to-day activities such as bathing, preparing meals, shopping, managing finances, etc.?: No Are you currently unemployed and looking for a job?: No Are you interested in more education?: No Please select the resources that you would like help with: None Currently or been in a relationship where the following occur: no concerns reported AUDIT C Alcohol Use Questionnaire (AUDIT-C) 1. How often do you have a drink containing alcohol?: Monthly or less 2. How many drinks containing alcohol do you have on a typical day when you are drinking?: 1 or 2 3. How often do you have six or more drinks on one occasion?: Never Total Score: 1 Score Reviewed/Action Taken: Yes MARI-7 AMB Questionnaire MARI-7 Date MARI - 7 assessed: 06/19/23 Feeling nervous, anxious, or on edge: 0 = Not at all Not being able to stop or control worryin = Not at all Worrying too much about different things: 0 = Not at all Trouble relaxin = Not at all Being so restless that it is hard to sit still: 0 = Not at all Becoming easily annoyed or irritable: 0 = Not at all Feeling afraid as if something awful might happen: 0 = Not at all Total MARI-7 score (0-4 normal; 5-9 mild; 10-14 moderate; 15-21 severe): 0 Source: Developed by Drs. Michael Melendez, Christina Lopes, Arturo Witt and colleagues, with an educational amanda from [employer]. Review of Systems Const Denies chills, Denies fatigue, Denies fever(s), Denies headache(s), Denies malaise and Denies weakness Eyes Denies blurry vision, Denies change in vision, Denies irritation and Denies itchy eyes ENT Denies dysphagia, Denies dizziness, Denies otalgia, Denies headache(s), Denies nasal congestion, Denies neck pain, Denies odynophagia and Denies sore throat Card Denies chest pain, Denies rapid heart rate, Denies irregular heart rhythm, Denies palpitations and Denies dyspnea Resp Denies chest congestion, Denies cough, Denies dyspnea and Denies wheezing GI Denies abdominal pain, Denies bloating, Denies constipation, Denies dysphagia, Denies heartburn, Denies diarrhea, Denies nausea, Denies odynophagia and Denies vomiting Denies hematuria, Denies difficulty urinating, Denies dysuria, Denies urinary frequency and Denies urinary urgency Musc Denies back pain, Denies arthralgias, Denies joint swelling, Denies muscle weakness and Denies neck pain Skin/Breast Denies change in pigmentation, Denies lesions, Denies rash and Denies unusual bruising Neuro Denies dizziness, Denies headache(s), Denies paresthesias and Denies weakness Endo Denies fatigue and Denies palpitations Aller/Immun Denies itchy eyes and Denies wheezing Physical exam (Primary Care) Vital Signs: Last Vital Signs Pulse 57 06/19/23 12:54 BP 124/78 06/19/23 12:54 Pulse Ox 98 09/01/23 12:54 Oxygen Delivery Method Room Air 06/19/23 12:54 BMI result Body Mass Index 28.3 Tobacco/Smoking Status: Tobacco use Status Tobacco use date assessed 06/19/23 06/19/23 13:00 Patient Tobacco Use Status Former Tobacco user 06/19/23 13:00 Tobacco use type Cigarette,Cigar 06/19/23 13:00 e-Cigarette/Vaping Use Never Used 06/19/23 13:00 PHQ-9: PHQ-9 Score PHQ-9: Total score 0 06/19/23 13:27 Depression Screening Interpretation: Positive Depression Screening Follow-up: Existing condition and In treatment Thrive Assessment: Date of Thrive Assessment Date Thrive assessed 06/19/23 06/19/23 13:00 Currently or been in a relationship where the following occur: no concerns reported Const General: no acute distress, alert and awake Orientation/consciousness: patient oriented x3 HENMT Head: Yes normocephalic and Yes atraumatic Ears: external ears normal, TM's normal bilaterally and EAC's normal General nose exam: No nasal discharge present Face and sinus: Yes normal facial exam and Yes sinuses nontender Teeth and gingiva: dentition normal Throat: Yes posterior oropharynx normal and Yes tonsils normal (no TP congestion) Eyes Eyelids: Yes eyelids normal Conjunctivae: conjunctivae normal Pupils: Equal, round and reactive pupils present EOM: EOMs intact bilaterally Neck Neck: Yes no lymphadenopathy and Yes supple Thyroid: Thyroid normal Resp Auscultation: clear to auscultation bilaterally, no rales and no wheezes Cardio Rate: regular rate Rhythm: regular rhythm Heart sounds: no murmurs GI Palpation (GI): Soft to palpation, nontender and No hepatosplenomegaly present Auscultation: normal bowel sounds General: Yes no CVA tenderness Back/Spine/Pelvis Back: no CVA tenderness Thoracic/Lumbar Spine: thoracic and lumbar spine normal to inspection Skin Lesions: no lesions Rashes: no rashes Neuro General: patient oriented x3, moves all extremities, no focal motor deficits and CN's II-XI intact bilaterally Cranial nerves: Yes Equal, round and reactive pupils present Cognition (Neuro): normal cognition Gait exam (Neuro): Normal gait present Extrem General: Yes no clubbing, cyanosis or edema Results Reviewed Results Reviewed: Laboratory Tests 05/04/23 05/05/23 05/05/23 14:53 06:06 06:06 WBC 6.4 Hgb 12.8 L Hct 38.7 L Plt Count 159 L Sodium 141 Potassium 3.3 Creatinine 0.84 Estimated GFR > 60 Random Glucose 81 TSH 26.01 H Free T4 0.80 Ur Specific [place] Urine Protein Urine Glucose (UA) Urine Blood 05/05/23 14:18 WBC Hgb Hct Plt Count Sodium Potassium Creatinine Estimated GFR Random Glucose TSH Free T4 Ur Specific [place] 1.020 Urine Protein 30 (1+) H Urine Glucose (UA) Negative Urine Blood Trace H Assessment and Plan Assessment & Plan (1) Annual physical exam: Code(s): Z00.00 - Encounter for general adult medical examination without abnormal findings Plan: Check labs Results of his labs done last month reviewed and discussed with patient but these are not complete and do not include a fasting lipid profile He had his colonoscopy with Dr. Hernandez back in 2014; was supposed to get a repeat colonoscopy with Dr. 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 Hall He was referred to Dr. Jefferson previously and is scheduled to be seen in October 2023 (3) Dementia: Code(s): F03.90 - Unspecified dementia, unspecified severity, without behavioral disturbance, psychotic disturbance, mood disturbance, and anxiety Qualifiers: Dementia behavioral or psychological symptom: unspecified whether behavioral, psychotic, or mood disturbance or anxiety Dementia severity: unspecified severity Dementia type: unspecified type Qualified Code(s): F03.90 - Unspecified dementia, unspecified severity, without behavioral disturbance, psychotic disturbance, mood disturbance, and anxiety Plan: Continue Donepezil 5 mg QD Was referred again to neurology for further evaluation and management - is scheduled to be seen in October 2023 (4) Pure hypercholesterolemia: Code(s): E78.00 - Pure hypercholesterolemia, unspecified Plan: Reinforced low cholesterol diet Will have him get his fasting lipid profile rechecked NAUN Continue Atorvastatin 40 mg QD (5) CAD (coronary artery disease): Code(s): I25.10 - Atherosclerotic heart disease of [place] coronary artery without angina pectoris Qualifiers: Associated angina: without angina Coronary Disease-Associated Artery/Lesion type: [place] artery [place] vs. transplanted heart: [place] heart Qualified Code(s): I25.10 - Atherosclerotic heart disease of [place] coronary artery without angina pectoris Plan: Cardiac catheterization done at [facility] in 2019 reportedly came back normal Follow up with Cardiology as scheduled (6) Benign essential hypertension: Code(s): I10 - Essential (primary) hypertension Plan: Reinforced low-sodium diet -? is systolic BP of at least 130 mm Continue Losartan 50 mg QD (7) Diabetes mellitus: Code(s): E11.9 - Type 2 diabetes mellitus without complications Qualifiers: Diabetes mellitus complication status: without complication Diabetes mellitus prison insulin use: without prison use Diabetes mellitus type: type 2 Qualified Code(s): E11.9 - Type 2 diabetes mellitus without complications Plan: In-office HgbA1c was normal at 5.4% when last checked last year in December 2021 Reinforced diabetic diet - diabetes appears corrected/controlled currently and no Rx is required at this time (8) Acquired hypothyroidism: Code(s): E03.9 - Hypothyroidism, unspecified Plan: Continue Synthroid 200 mcg QD Will recheck his TFTs NAUN for follow up (9) Abdominal pain, chronic, right lower quadrant: Code(s): R10.31 - Right lower quadrant pain; G89.29 - Other chronic pain Plan: Appears to be currently resolved - states that his abdominal pain have not bothered him over the past few months Patient has had extensive workups done for his abdominal pain, including x-rays, ultrasound, CTs and even a recent colonoscopy over the past few years, with all of his tests coming back negative / unrevealing He has been advised that most of his recurrent abdominal symptoms are likely due to scar tissues or adhesions from his previous surgery (colectomy) and that there are likely no effective corrective therapy for this He has also been advised of the possibility that his anxiety was aggravating his symptoms at the time - his anxiety appears to be also better controlled lately Follow-up with GI and with surgery as scheduled (10) GERD (gastroesophageal reflux disease): Code(s): K21.9 - Gastro-esophageal reflux disease without esophagitis Qualifiers: Esophagitis presence: without esophagitis Qualified Code(s): K21.9 - Gastro-esophageal reflux disease without esophagitis Plan: Dietary restrictions reinforced Continue Omeprazole 20 mg QD (11) Constipation: Code(s): K59.00 - Constipation, unspecified Qualifiers: Constipation type: unspecified constipation type Qualified Code(s): K59.00 - Constipation, unspecified Plan: Encouraged again on increased oral fluids and dietary fiber Continue MiraLax 17 g once a day and Senna 8.6 mg 2 tablets daily at bedtime as needed (12) Osteoarthritis: Code(s): M19.90 - Unspecified osteoarthritis, unspecified site Qualifiers: Osteoarthritis location: unspecified site Osteoarthritis type: primary Qualified Code(s): M19.91 - Primary osteoarthritis, unspecified site Plan: Continue Tramadol 50 mg 3 times a day as needed for pain (13) Benign prostatic hyperplasia with urinary obstruction: Code(s): N40.1 - Benign prostatic hyperplasia with lower urinary tract symptoms; N13.8 - Other obstructive and reflux uropathy Plan: Continue Finasteride 5 mg QD and Tamsulosin 0.4 mg QD Follow up with urology as scheduled (14) Insomnia: Code(s): G47.00 - Insomnia, unspecified Qualifiers: Insomnia type: unspecified Qualified Code(s): G47.00 - Insomnia, unspecified Plan: Sleep hygiene reinforced Continue Trazodone 100 mg daily at bedtime as needed (15) Bipolar affective, manic, severe w/ psych: Code(s): F31.2 - Bipolar disorder, current episode manic severe with psychotic features Plan: Continue Olanzapine 2.5 mg Q HS, Depakote ER 250 mg BID and Invega Sustenna 156 mg IM once a month Follow-up with Psychiatry as scheduled (16) Overweight (BMI 25.0-29.9): Code(s): E66.3 - Overweight Plan: Reinforced diet; exercise is unrealistic given patient's Parkinson's disease and comorbidities Plan Follow up in 4 months Orders: Orders Vitamin B12 and Folate 06/20/23 E53.8 - Deficiency of other specified B group vitamins, Z00.00 - Encounter for general adult medical examination without abnormal findings Comprehensive [place]. Panel Fast 06/20/23 E78.00 - Pure hypercholesterolemia, unspecified, Z00.00 - Encounter for general adult medical examination without abnormal findings Hemoglobin A1c 06/20/23 E11.9 - Type 2 diabetes mellitus without complications, Z00.00 - Encounter for general adult medical examination without abnormal findings Lipid Panel 06/20/23 E78.00 - Pure hypercholesterolemia, unspecified, Z00.00 - Encounter for general adult medical examination without abnormal findings Free T4 (Free Thyroxine) 06/20/23 E03.9 - Hypothyroidism, unspecified, Z00.00 - Encounter for general adult medical examination without abnormal findings Thyroid Stimulating Hormone 06/20/23 E03.9 - Hypothyroidism, unspecified, Z00.00 - Encounter for general adult medical examination without abnormal findings Vitamin D 25-OH Total 06/20/23 E55.9 - Vitamin D deficiency, unspecified, Z00.00 - Encounter for general adult medical examination without abnormal findings Microalbumin, Random (w Creat) 06/20/23 E11.9 - Type 2 diabetes mellitus without complications, Z00.00 - Encounter for general adult medical examination without abnormal findings Complete Blood Count Auto Diff 06/20/23 I10 - Essential (primary) hypertension, Z00.00 - Encounter for general adult medical examination without abnormal findings UA CC w/rflx Micro + Cult 06/20/23 R30.0 - Dysuria, Z00.00 - Encounter for general adult medical examination without abnormal findings PT Evaluation and Treatment 06/19/23 R26.81 - Unsteadiness on feet Referrals Cologuard Test Z12.11 - Encounter for screening for malignant neoplasm of colon, Z12.12 - Encounter for screening for malignant neoplasm of rectum Coding Level of Care Code Est Pt Prev Care >65y(48522) Diagnoses Annual physical exam Z00.00 Secondary parkinsonism G21.19 Secondary Parkinsonism type: other drug-induced Dementia F03.90 Dementia behavioral or psychological symptom: unspecified whether behavioral, psychotic, or mood disturbance or anxiety Dementia severity: unspecified severity Dementia type: unspecified type Pure hypercholesterolemia E78.00 CAD (coronary artery disease) I25.10 Associated angina: without angina Coronary Disease-Associated Artery/Lesion type: [place] artery [place] vs. 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
== END 2023-06-19 13:49 | disposition home or self-care (01) ==
PROVIDERS: PCP Internal Medicine; Visit Provider Internal Medicine
DX: Z00.00 Encounter for general adult medical examination without abnormal findings (principal); I10 Essential (primary) hypertension; E03.9 Hypothyroidism, unspecified; K21.9 Gastro-esophageal reflux disease without esophagitis; E11.9 Type 2 diabetes mellitus without complications; G21.19 Other drug induced secondary parkinsonism; F03.90 Unspecified dementia, unspecified severity, without behavioral disturbance, psychotic disturbance, mood disturbance, and anxiety; E78.00 Pure hypercholesterolemia, unspecified; I25.10 Atherosclerotic heart disease of native coronary artery without angina pectoris; R10.31 Right lower quadrant pain; G89.29 Other chronic pain
CPT/HCPCS: 99397

== ENCOUNTER 2023-06-20 10:35 | Outpatient (REF) | payer MEDICARE, MEDICAID, SELFPAY ==
[2023-06-20 10:48] LABS: MANUAL DIFF FLAG NO
[2023-06-20 10:52] LABS: Basophils Percent Auto 0.3 % (0-2); Eosinophils Absolute Auto 0.1 X10*3/uL (0.0-0.4); Eosinophils Percent Auto 1.5 % (0-4); Hematocrit 45.8 % (42.0-52.0); Hemoglobin 14.8 g/dl (14.0-18.0); Imm Gran Abs Auto 0.02 X10*3/uL (0.00-0.03); Imm Gran Pct Auto 0.3 % (0.0-0.4); Lymphocytes Absolute Auto 1.1 X10*3/uL (1.2-4.9); Lymphocytes Percent Auto 16.8 % (20-40); Mean Corpuscular HGB Conc 32.3 g/dl (31.0-36.0); Mean Corpuscular Hemoglobin 30.3 pg (27.0-33.0); Mean Corpuscular Volume 93.9 fL (80.0-98.0); Mean Platelet Volume 9.8 fL (9.4-12.4); Monocytes Absolute Auto 0.8 X10*3/uL (0.1-1.2); Monocytes Percent Auto 11.4 % (2-11); Neutrophils Absolute Auto 4.6 x10*3/uL (2.0-8.3); Neutrophils Percent Auto 69.7 % (45-73); Platelet Count 188 X10*3/uL (160-400); Red Blood Count 4.88 X10*6/uL (4.60-5.80); Red Cell Distribution Width 13.2 % (11.0-16.0); White Blood Count 6.6 X10*3/uL (4.8-10.8)
[2023-06-20 11:02] LABS: Estimated Average Glucose 97 mg/dL
[2023-06-20 11:18] LABS: Appearance Urine Clear; Color Urine Yellow; Glucose Urine UA Negative (Negative); Leukocyte Esterase Urine Negative (Negative); Nitrite Urine Negative (Negative); PH 5.5 (5.0-9.0); Specific Gravity - Urine 1.025 (1.005-1.025); UMIC TRIGGER UACC YES; Urine Blood Small (1+) (Negative); Urine Ketones Negative (Negative); Urine Protein 30 (1+) mg/dL (Neg-Trace)
[2023-06-20 11:24] LABS: Bacteria Urine None Seen (None Seen); Hyaline Casts Urine 0-2 /LPF (0-2); Squamous Epithelial Cell Urine 0-2 /HPF (0-2); WBC Urine 0-5 /HPF (0-5)
[2023-06-20 11:26] LABS: Alanine Aminotransferase 12 U/L (0-40); Alkaline Phosphatase 64 U/L (39-117); Anion Gap 17 (12-20); Aspartate Amino Transferase 17 U/L (5-37); Blood Urea Nitrogen 25 mg/dL (9-16); Calcium 9.7 mg/dL (8.4-10.2); Carbon Dioxide 23 mmol/L (22-29); Chloride 104 mmol/L (96-108); Cholesterol 180 mg/dL (<200); Estimated Glomerular Filt Rate > 60; Glucose Fasting 96 mg/dL (60-99); HDL Cholesterol 55 mg/dL (>40); LDL Cholesterol Calculated 106 mg/dL (<100); Potassium 4.2 mmol/L (3.3-5.1); Sodium 140 mmol/L (135-145); Total Protein 7.4 g/dL (6.5-8.0); Triglycerides 98 mg/dL (<150)
[2023-06-20 11:42] LABS: Free T4 (Free Thyroxine) 1.11 ng/dL (0.71-1.85); Thyroid Stimulating Hormone 3.54 uIU/mL (0.32-4.0)
[2023-06-20 11:57] LABS: Folate 14.4 ng/mL (> or = 4.0); Vitamin B12 1321 pg/mL (200-900)
[2023-06-20 12:08] LABS: Creatinine Urine 234.79 mg/dL; Microalbum/Creatinine Ratio Ur 34.9 ug/mg cr (<30)
== END 2023-06-20 10:36 | disposition home or self-care (01) ==
LOC: HO.LAB 10:35
PROVIDERS: PCP Internal Medicine; Visit Provider Internal Medicine
DX: Z00.00 Encounter for general adult medical examination without abnormal findings (principal); E53.8 Deficiency of other specified B group vitamins; E78.00 Pure hypercholesterolemia, unspecified; R30.0 Dysuria; E55.9 Vitamin D deficiency, unspecified; E03.9 Hypothyroidism, unspecified; E11.9 Type 2 diabetes mellitus without complications; I10 Essential (primary) hypertension
CPT/HCPCS: 36415; 80053; 80061; 81001; 82043; 82306; 82570; 82607; 82746; 83036; 84439; 84443; 85025

== ENCOUNTER 2023-06-23 10:35 | Emergency (ER) | payer MEDICARE, MEDICAID, SELFPAY ==
--- NOTE | ~2023-06-23 | CT_ITS ---
EXAMINATION: CT HEAD WITHOUT CONTRAST CLINICAL INFORMATION: Fall COMPARISON: Head CT May 04, 2023 TECHNIQUE: Contiguous axial imaging was performed from the skull base to vertex without intravenous administration of contrast. This CT examination was performed using dose optimization techniques as appropriate, variously including the following: *Automated exposure control *Adjustment of mA and/or kV according to patient size (this includes techniques or standardized protocols for targeted exams where dose is matched to indication/reason for exam; i.e. extremities or head) *Use of iterative reconstruction technique DLP: 775 mGy-cm FINDINGS: There is no evidence of acute intracranial hemorrhage or territorial infarction. No abnormal mass effect or midline shift is appreciated. Alan-white differentiation is well preserved. No extra-axial fluid collections. The ventricular system and cortical sulci are prominent, consistent with age-appropriate volume loss. There are areas of low density in the periventricular and subcortical white matter, most consistent with sequelae of microvascular ischemic change. Old lacunar infarct of the left caudate nucleus. Soft tissues and osseous structures are unremarkable. There are calcifications of the cavernous internal carotid arteries. Mild mucosal thickening of the maxillary and ethmoid sinuses. Air-fluid levels noted within the sphenoid sinus. The mastoid air cells are well aerated. CT/CT head/brain wo IV con IMPRESSION: 1. Chronic microvascular ischemic changes with no CT evidence of acute intracranial abnormality. 2. Mild sinus disease.
--- NOTE | ~2023-06-23 | XR_ITS ---
EXAMINATION: XR CHEST CLINICAL INFORMATION: History of fall. COMPARISON: 06/03/2022 TECHNIQUE: Frontal view of the chest was obtained. FINDINGS: Lungs are well expanded. Azygos fissure of the right upper lobe. No acute findings. No pulmonary consolidation, pneumothorax or pleural effusion. Cardiac silhouette is normal in size. Pulmonary vascular pattern is normal. EKG wires overlie the chest. The visualized bones are intact. Skeletal findings include osteoarthritis of bilateral acromioclavicular joints and left glenohumeral joint. No rib fractures are seen on this anteroposterior view of the chest. XR/XR chest 1V IMPRESSION: No acute pulmonary disease.
[2023-06-23 10:46] VITALS: BP 138/84; PULSE 80; O2SAT 96; BMI 26.6
[2023-06-23 10:49] LABS: Glucose, Whole Blood 155 mg/dL (60-115)
[2023-06-23 10:51] VITALS: BP 173/93; PULSE 72; RESP 20; O2SAT 96
--- NOTE | 2023-06-23 10:53 | ECG_ITS ---
Test Reason : WEAKNESS Blood Pressure : / mmHG Vent. Rate : 064 BPM Atrial Rate : 000 BPM P-R Int : 000 ms QRS Dur : 154 ms QT Int : 494 ms P-R-T Axes : 000 -06 161 degrees QTc Int : 509 ms Atrial fibrillation Left bundle branch block Abnormal ECG When compared with ECG of 05-FEB-2023 06:55, Atrial fibrillation has replaced Sinus rhythm Referred By: Esther Rayo Electronically Signed By:JOSE LUIS MAYO
--- NOTE | 2023-06-23 11:04 | ED.AMS ---
HPI - Altered Mental Status General Chief Complaint: Altered Mental Status Stated Complaint: AMS,UTI? Time Seen by Provider: 06/23/23 10:40 Source: patient and old records reviewed Mode of arrival: EMS Limitations: no limitations History of Present Illness HPI narrative: 72 yo male with PMH of hypothyroidism, mild dementia still at home - has people check on him, falls in past, eczema, anxiety, COPD, HTN, HLD, GERD, CAD who was found on bathroom floor covered in urine. He cannot tell me when he fell or if he fell. He is not sure how long he was on the ground for. His only complaint is that he is hungry and wants oatmeal. Patient is not compliant with his medications. MD complaint: altered mental status, confusion and weakness Onset (ago): unknown Severity: moderate Consistency of symptoms: unknown Context: history of similar presentation Associated symptoms: malaise and other (patient was covered in urine, states he is hungry) Related Data Home Medications Medication Instructions Recorded Confirmed atorvastatin 40 mg tablet 40 mg PO BEDTIME 11/23/22 06/19/23 dicyclomine 20 mg tablet 20 mg PO TID PRN Gastrointestinal 11/23/22 06/19/23 Spasms Or Cramping fluticasone propionate 50 1 spray intranasal BID 11/23/22 06/19/23 mcg/actuation nasal spray,suspension ibuprofen 600 mg tablet 600 mg PO Q6H PRN Pain 11/23/22 06/19/23 pramipexole 0.125 mg tablet 0.125 mg PO TID 11/23/22 06/19/23 albuterol sulfate 2.5 mg/3 mL 2.5 mg inhalation Q4H PRN 05/04/23 06/19/23 (0.083 %) solution for nebulization Shortness Of Breath furosemide 20 mg tablet 20 mg PO DAILY 05/04/23 06/19/23 potassium chloride 20 mEq 20 meq PO DAILY 05/04/23 06/19/23 tablet,extended release trihexyphenidyl 2 mg tablet 2 mg PO BID 05/04/23 06/19/23 Previous Rx's Medication Instructions Recorded albuterol sulfate 90 mcg/actuation 2 puff inhalation Q4H PRN 01/06/22 aerosol inhaler (Ventolin HFA) bronchospasm #6.7 grams divalproex 250 mg tablet,delayed 250 mg PO BID 30 days #60 tabs 01/06/22 release donepezil 5 mg tablet 5 mg PO BEDTIME 30 days #30 tabs 01/06/22 olanzapine 2.5 mg tablet 2.5 mg PO BEDTIME 30 days #30 tabs 01/06/22 paliperidone palmitate 156 mg/mL 156 mg IM QMONTH #1 mL 01/06/22 intramuscular syringe (Invega Sustenna) trazodone 100 mg tablet 100 mg PO BEDTIME PRN Insomnia 30 01/06/22 days #30 tabs finasteride 5 mg tablet 5 mg PO DAILY #90 tabs 06/13/22 tamsulosin 0.4 mg capsule (Flomax) 0.4 mg PO BEDTIME #90 caps 06/13/22 omeprazole 20 mg capsule,delayed 20 mg PO DAILY@0630 90 days #90 08/29/22 release caps losartan 50 mg tablet 50 mg PO DAILY 90 days #90 tabs 11/21/22 levothyroxine 200 mcg tablet 200 mcg PO DAILY@0630 90 days #90 04/24/23 tabs Allergies Allergy/AdvReac Type Severity Reaction Status Date / Time lisinopril [LISINOPRIL] Allergy Intermediate RASH Verified 06/23/23 10:46 Review of Systems Review of Systems: Constitutional : No Weight loss, No Fever, No Chills, pos fatigue Cardiovascular : No Chest Pain, No SOB, NoEdema Respiratory : No Cough, No Sputum, No Wheezing Gastrointestinal : no Nausea, no Vomiting, no Diarrhea, positive abdominal Pain, No Hematochezia, No Melena Genitourinary : No Dysuria, No Urinary Frequency, No Hematuria, No Urgency Musculoskeletal : No joint pain, No Myalgias, No Joint Swelling Skin : No Skin Lesions, No rash Neuro : pos Weakness, No Numbness, No Dizziness, No Headache Psych : No Anxiety/Panic, No Depression All other systems reviewed and are negative. [facility] Past Medical History Attestation statement: The following information was validated with the patient. Source: old records reviewed Medical History Abdominal pain, chronic, right lower quadrant Acquired hypothyroidism Allergic rhinitis Anxiety Benign essential hypertension Benign prostatic hyperplasia with urinary obstruction CAD (coronary artery disease) Constipation COPD (chronic obstructive pulmonary disease) Dementia Diabetes mellitus GERD (gastroesophageal reflux disease) Hypothyroid Insomnia Obesity (BMI 30-39.9) Osteoarthritis Overweight (BMI 25.0-29.9) Pure hypercholesterolemia Vitamin D deficiency Surgical History History of arthroscopic knee surgery History of cardiac catheterization History of colectomy History of esophagogastroduodenoscopy (EGD) History of excision of pilonidal cyst History of eye surgery History of skin graft Hx of colonoscopy Family History Family History Father Stroke CVD (cerebrovascular disease) Mother Hypertension Social History Social History Household Members: None Housing: Apartment Do you presently have visiting nurse or other home services: Yes (Had [facility] ([facility]) and [facility]) Unable to assess alcohol history related to: Refusing to respond Alcohol intake: never Patient Tobacco Use Status: Former Tobacco user Quit Date: long time ago Tobacco use type: Cigarette and Cigar Years Smoked: unknown Smoked in Last 30 Days: No e-Cigarette/Vaping Use: Never Used Second Hand Smoke Exposure: No Use of substances other than those prescribed or required for medical reasons: No Advance Directives: Yes Advance Directives on File: Yes Advance Directives Date on File: 05/06/23 service: No Current occupational status: retired Sexual orientation: Straight/Heterosexual Cognitive needs: No Hearing needs: No Vision needs: No Physical Exam ED Vital Signs: Vital Signs - 24 hr 06/23/23 10:51 06/23/23 11:15 06/23/23 12:49 Temperature 98.2 F Pulse Rate 72 72 Respiratory Rate 20 16 Blood Pressure 173/93 H 178/74 H Pulse Oximetry 96 94 Oxygen Delivery Method Room Air Room Air BMI result Body Mass Index 26.6 Appearance: Alert. Oriented X2 (confused on time). No acute distress. Eyes: Pupils equal, round and reactive to light. ENT: Pharynx very dry MM Neck: Normal inspection. Neck supple. CVS: Normal heart rate and rhythm. Pulses normal. Respiratory: No respiratory distress. Breath sounds normal. Abdomen: Soft and nontender. : strong odor of urine but no signs of infection Skin: Skin warm and dry. Normal skin color. Normal skin turgor. Extremities: No lower extremity edema. No calf ttp Neuro: Oriented X 2 (confused on time). No motor deficit. No sensory deficit. has rolling tremor RUE Course Course Course Narrative: no UTI, no pneumonia Reevaluation(s) Reevaluation #1: Patient placed in physician observation at 221pm. The indication for observation is that the patient needs more time for case management to help with safe discharge planning At this time the patient is frail, lungs clear, CV RRR, abd nontender, neuro is intact. Medications Administered Discontinued Medications Generic Name Dose Route Start Last Admin Trade Name Freq PRN Reason Stop Dose Admin Sodium Chloride 1,000 mls @ 999 mls/hr 06/23/23 11:00 06/23/23 12:23 Ns IVCONT 06/23/23 12:00 Infused .Q1H1M YAYA Infusion Medical Decision Making Medical Decision Making [facility] [place] Narrative: 72 yo male with PMH of hypothyroidism, mild dementia still at home - has people check on him, falls in past, eczema, anxiety, COPD, HTN, HLD, GERD, CAD here with c/o being found down unknown downtime he has no complaints other than hunger but smells strong of urine - at this time I am going to obtain labs, urine, CT head for ICH, CXR for trauma, UA, CPK. Start on IVF. If febrile on rectal temperaturei will treat for empiric UTI. He denies CP/SOB and has no hypoxia at this time to suggest ACS or VTE Differential Diagnosis Differential Diagnoses: The differential diagnosis associated with the presentation includes FTT, weakness, UTI, rhabodmyolysis Admission/Observation Consideration of admission/observation: Escalation of care including admission/observation considered observation for safe discharge planning Lab Data [facility] Lab Attestation statement: I reviewed the patient's lab results. trop nonischemic - CPK only in 400s Cr at baseline, afebrile no WBC count, lactic acid normal , no UTI 06/23/23 11:16 06/23/23 11:16 Labs: Lab Results 06/23/23 06/23/23 06/23/23 Range/Units 10:44 11:16 11:16 WBC 9.0 (4.8-10.8) X10*3/uL RBC 5.24 (4.60-5.80) X10*6/uL Hgb 15.7 (14.0-18.0) g/dl Hct 47.9 (42.0-52.0) % MCV 91.4 (80.0-98.0) fL MCH 30.0 (27.0-33.0) pg MCHC 32.8 (31.0-36.0) g/dl RDW 12.8 (11.0-16.0) % Plt Count 202 (160-400) X10*3/uL MPV 9.5 (9.4-12.4) fL Immature Gran % (Auto) 0.2 (0.0-0.4) % Neut % (Auto) 88.6 H (45-73) % Lymph % (Auto) 3.8 L (20-40) % [place] % (Auto) 7.3 (2-11) % Eos % (Auto) 0.0 (0-4) % Baso % (Auto) 0.1 (0-2) % Lymph # (Auto) 0.3 L (1.2-4.9) X10*3/uL [place] # (Auto) 0.7 (0.1-1.2) X10*3/uL Eos # (Auto) 0.0 (0.0-0.4) X10*3/uL Baso # (Auto) 0.0 (0.0-0.2) X10*3/uL Abs Immat Gran (auto) 0.02 (0.00-0.03) X10*3/uL Absolute Neuts (auto) 8.0 (2.0-8.3) x10*3/uL Absolute Nucleated RBC 0.000 (0.0-0.012) X10*3/uL Nucleated RBC % (auto) 0.0 (0.0-0.2) /100WBC Sodium 143 (135-145) mmol/L Potassium 4.0 (3.3-5.1) mmol/L Chloride 107 (96-108) mmol/L Carbon Dioxide 27 (22-29) mmol/L Anion Gap 13 (12-20) BUN 25 H (9-16) mg/dL Creatinine 1.11 (0.5-1.4) mg/dL Estim Creat Clear Calc 61.1 Estimated GFR > 60 POC Glucose 155 H (60-115) mg/dL Random Glucose 157 H (60-115) mg/dL Lactic Acid (0.5-2.0) mmol/L Calcium 10.0 (8.4-10.2) mg/dL Magnesium 2.1 (1.6-2.6) mg/dL Total Bilirubin 1.1 H (0.0-1.0) mg/dL Direct Bilirubin 0.4 (0.0-0.5) mg/dL AST 22 (5-37) U/L ALT 14 (0-40) U/L Alkaline Phosphatase 64 (39-117) U/L Ammonia (13-55) umol/L Total Creatine Kinase 427 H (38-174) U/L Troponin I High Sens (<3.5-35.0) ng/L Total Protein 7.5 (6.5-8.0) g/dL Albumin 3.9 (3.5-5.0) g/dL Lipase 27 (8-78) U/L TSH (0.32-4.0) uIU/mL Urine Color Urine Appearance Urine pH (5.0-9.0) Ur Specific [place] (1.005-1.025) Urine Protein (Neg-Trace) mg/dL Urine Glucose (UA) (Negative) mg/dL Urine Ketones (Negative) mg/dL Urine Blood (Negative) Urine Nitrite (Negative) Ur Leukocyte Esterase (Negative) Urine RBC (0-2) /HPF Urine WBC (0-5) /HPF Ur Squamous Epith Cells (0-2) /HPF Urine Bacteria (None Seen) Hyaline Casts (0-2) /LPF Valproic Acid (50.0-100.0) mcg/mL 06/23/23 06/23/23 06/23/23 Range/Units 11:16 11:16 11:16 WBC (4.8-10.8) X10*3/uL RBC (4.60-5.80) X10*6/uL Hgb (14.0-18.0) g/dl Hct (42.0-52.0) % MCV (80.0-98.0) fL MCH (27.0-33.0) pg MCHC (31.0-36.0) g/dl RDW (11.0-16.0) % Plt Count (160-400) X10*3/uL MPV (9.4-12.4) fL Immature Gran % (Auto) (0.0-0.4) % Neut % (Auto) (45-73) % Lymph % (Auto) (20-40) % [place] % (Auto) (2-11) % Eos % (Auto) (0-4) % Baso % (Auto) (0-2) % Lymph # (Auto) (1.2-4.9) X10*3/uL [place] # (Auto) (0.1-1.2) X10*3/uL Eos # (Auto) (0.0-0.4) X10*3/uL Baso # (Auto) (0.0-0.2) X10*3/uL Abs Immat Gran (auto) (0.00-0.03) X10*3/uL Absolute Neuts (auto) (2.0-8.3) x10*3/uL Absolute Nucleated RBC (0.0-0.012) X10*3/uL Nucleated RBC % (auto) (0.0-0.2) /100WBC Sodium (135-145) mmol/L Potassium (3.3-5.1) mmol/L Chloride (96-108) mmol/L Carbon Dioxide (22-29) mmol/L Anion Gap (12-20) BUN (9-16) mg/dL Creatinine (0.5-1.4) mg/dL Estim Creat Clear Calc Estimated GFR POC Glucose (60-115) mg/dL Random Glucose (60-115) mg/dL Lactic Acid 1.6 (0.5-2.0) mmol/L Calcium (8.4-10.2) mg/dL Magnesium (1.6-2.6) mg/dL Total Bilirubin (0.0-1.0) mg/dL Direct Bilirubin (0.0-0.5) mg/dL AST (5-37) U/L ALT (0-40) U/L Alkaline Phosphatase (39-117) U/L Ammonia 24 (13-55) umol/L Total Creatine Kinase (38-174) U/L Troponin I High Sens 26.3 D (<3.5-35.0) ng/L Total Protein (6.5-8.0) g/dL Albumin (3.5-5.0) g/dL Lipase (8-78) U/L TSH (0.32-4.0) uIU/mL Urine Color Urine Appearance Urine pH (5.0-9.0) Ur Specific [place] (1.005-1.025) Urine Protein (Neg-Trace) mg/dL Urine Glucose (UA) (Negative) mg/dL Urine Ketones (Negative) mg/dL Urine Blood (Negative) Urine Nitrite (Negative) Ur Leukocyte Esterase (Negative) Urine RBC (0-2) /HPF Urine WBC (0-5) /HPF Ur Squamous Epith Cells (0-2) /HPF Urine Bacteria (None Seen) Hyaline Casts (0-2) /LPF Valproic Acid (50.0-100.0) mcg/mL 06/23/23 06/23/23 06/23/23 Range/Units 11:16 11:16 11:32 WBC (4.8-10.8) X10*3/uL RBC (4.60-5.80) X10*6/uL Hgb (14.0-18.0) g/dl Hct (42.0-52.0) % MCV (80.0-98.0) fL MCH (27.0-33.0) pg MCHC (31.0-36.0) g/dl RDW (11.0-16.0) % Plt Count (160-400) X10*3/uL MPV (9.4-12.4) fL Immature Gran % (Auto) (0.0-0.4) % Neut % (Auto) (45-73) % Lymph % (Auto) (20-40) % [place] % (Auto) (2-11) % Eos % (Auto) (0-4) % Baso % (Auto) (0-2) % Lymph # (Auto) (1.2-4.9) X10*3/uL [place] # (Auto) (0.1-1.2) X10*3/uL Eos # (Auto) (0.0-0.4) X10*3/uL Baso # (Auto) (0.0-0.2) X10*3/uL Abs Immat Gran (auto) (0.00-0.03) X10*3/uL Absolute Neuts (auto) (2.0-8.3) x10*3/uL Absolute Nucleated RBC (0.0-0.012) X10*3/uL Nucleated RBC % (auto) (0.0-0.2) /100WBC Sodium (135-145) mmol/L Potassium (3.3-5.1) mmol/L Chloride (96-108) mmol/L Carbon Dioxide (22-29) mmol/L Anion Gap (12-20) BUN (9-16) mg/dL Creatinine (0.5-1.4) mg/dL Estim Creat Clear Calc Estimated GFR POC Glucose (60-115) mg/dL Random Glucose (60-115) mg/dL Lactic Acid (0.5-2.0) mmol/L Calcium (8.4-10.2) mg/dL Magnesium (1.6-2.6) mg/dL Total Bilirubin (0.0-1.0) mg/dL Direct Bilirubin (0.0-0.5) mg/dL AST (5-37) U/L ALT (0-40) U/L Alkaline Phosphatase (39-117) U/L Ammonia (13-55) umol/L Total Creatine Kinase (38-174) U/L Troponin I High Sens (<3.5-35.0) ng/L Total Protein (6.5-8.0) g/dL Albumin (3.5-5.0) g/dL Lipase (8-78) U/L TSH 5.34 H (0.32-4.0) uIU/mL Urine Color Yellow Urine Appearance Clear Urine pH 6.5 (5.0-9.0) Ur Specific [place] 1.020 (1.005-1.025) Urine Protein 300 (3+) H (Neg-Trace) mg/dL Urine Glucose (UA) Negative (Negative) mg/dL Urine Ketones 80 (Negative) mg/dL Urine Blood Moderate (2+) H (Negative) Urine Nitrite Negative (Negative) Ur Leukocyte Esterase Negative (Negative) Urine RBC 11-20 H (0-2) /HPF Urine WBC 0-5 (0-5) /HPF Ur Squamous Epith Cells 0-2 (0-2) /HPF Urine Bacteria None Seen (None Seen) Hyaline Casts 0-2 (0-2) /LPF Valproic Acid < 12.5 L (50.0-100.0) mcg/mL Independent Interpretation I performed an independent interpretation of an: EKG, Plain X-Ray and CT Scan Interpretation: Rate: 64 Rhythm:NSR [place]: left Normal P waves. Normal NELIA. LBBB ST T wave : inverted t waves V5-V6 I and aVL no MIGUEL qTC: 509 slightly prolonged prior studies: no sig change - sig artifact noted The study has been interpreted contemporaneously by me. . Radiology Impression Discussion of test interpretation with radiology: I have reviewed the radiologist's reading. Independent Historian Clinical information obtained from an independent historian. History obtained from or confirmed by: EMS External Record Review External record reviewed: Inpatient record Social Determinants Patient?s care significantly limited by Social Determinants of Health including: Problems related to primary support group Discharge Plan Discharge Clinical Impression: Adult failure to thrive Patient Disposition: Still a Patient Prescriptions: No Action omeprazole 20 mg capsule,delayed release(DR/EC) 20 mg PO DAILY@0630 90 Days Qty: 90 0RF losartan 50 mg tablet 50 mg PO DAILY 90 Days Qty: 90 0RF Protocol: Hold for SBP< HOLD for SBP < : 90 levothyroxine 200 mcg tablet 200 mcg PO DAILY@0630 90 Days Qty: 90 0RF albuterol sulfate [Ventolin HFA] 90 mcg/actuation Hfa Aerosol Inhaler 2 puff inhalation Q4H PRN (Reason: bronchospasm) Qty: 6.7 0RF donepezil 5 mg Tablet 5 mg PO BEDTIME 30 Days Qty: 30 0RF divalproex 250 mg Tablet,Delayed Release (Dr/Ec) 250 mg PO BID 30 Days Qty: 60 0RF olanzapine 2.5 mg Tablet 2.5 mg PO BEDTIME 30 Days Qty: 30 0RF trazodone 100 mg Tablet 100 mg PO BEDTIME PRN (Reason: Insomnia) 30 Days Qty: 30 0RF Invega Sustenna 156 mg/mL syringe 156 mg IM QMONTH Qty: 1 0RF Rx Instructions: LAST DOSE ON 04/27/23 atorvastatin 40 mg Tablet 40 mg PO BEDTIME dicyclomine 20 mg Tablet 20 mg PO TID PRN (Reason: Gastrointestinal Spasms Or Cramping) pramipexole 0.125 mg Tablet 0.125 mg PO TID ibuprofen 600 mg Tablet 600 mg PO Q6H PRN (Reason: Pain) fluticasone propionate 50 mcg/actuation [place],Suspension 1 spray INTRANASAL BID Rx Instructions: administer into each nostril tamsulosin [Flomax] 0.4 mg capsule 0.4 mg PO BEDTIME Qty: 90 2RF finasteride 5 mg tablet 5 mg PO DAILY Qty: 90 2RF albuterol sulfate 2.5 mg /3 mL (0.083 %) Solution For Nebulization 2.5 mg INHALATION Q4H PRN (Reason: Shortness Of Breath) furosemide 20 mg Tablet 20 mg PO DAILY trihexyphenidyl 2 mg Tablet 2 mg PO BID Rx Instructions: give with food (meal/snack) potassium chloride 20 mEq Tablet Extended Release 20 meq PO DAILY
[2023-06-23 11:15] VITALS: TEMP 36.8
[2023-06-23] MEDS: 0.9 % Sodium Chloride 1,000 ML 999 ML IVCONT (11:22)
[2023-06-23 11:28] LABS: MANUAL DIFF FLAG NO
--- NOTE | 2023-06-23 11:28 | PC.NURSE ---
pt alert so self and situation only - states that the year is 2014. pt biba d/t AMS and possible UTI. pt c/o abdominal pain because he is hungry - no other physical complaints. 20gIVs placed in ACs bilaterally. labs drawn and sent to lab. IVF hung and administered per provider order. straight catheterization peformed - pt tolerated well. call spring placed within reach.
[2023-06-23 11:29] LABS: Basophils Percent Auto 0.1 % (0-2); Hematocrit 47.9 % (42.0-52.0); Hemoglobin 15.7 g/dl (14.0-18.0); Imm Gran Abs Auto 0.02 X10*3/uL (0.00-0.03); Imm Gran Pct Auto 0.2 % (0.0-0.4); Lymphocytes Absolute Auto 0.3 X10*3/uL (1.2-4.9); Lymphocytes Percent Auto 3.8 % (20-40); Mean Corpuscular HGB Conc 32.8 g/dl (31.0-36.0); Mean Corpuscular Volume 91.4 fL (80.0-98.0); Mean Platelet Volume 9.5 fL (9.4-12.4); Monocytes Absolute Auto 0.7 X10*3/uL (0.1-1.2); Monocytes Percent Auto 7.3 % (2-11); Neutrophils Percent Auto 88.6 % (45-73); Platelet Count 202 X10*3/uL (160-400); Red Blood Count 5.24 X10*6/uL (4.60-5.80); Red Cell Distribution Width 12.8 % (11.0-16.0)
[2023-06-23 11:39] LABS: Ammonia 24 umol/L (13-55)
[2023-06-23 11:40] LABS: Lactic Acid 1.6 mmol/L (0.5-2.0)
--- NOTE | 2023-06-23 11:42 | PC.NURSE ---
pt alert and oriented to self and situation only. states that the year is 2014. neuros intact. no deficits noted. pt upper extremities strong and equal bilaterally. pt responding to commands appropriately. pt passed nursing swallow evaluation. pt able to adequately swallow w/o any issues.
[2023-06-23 11:45] LABS: Valproate < 12.5 mcg/mL (50.0-100.0)
[2023-06-23 11:46] LABS: Alanine Aminotransferase 14 U/L (0-40); Albumin Level 3.9 g/dL (3.5-5.0); Alkaline Phosphatase 64 U/L (39-117); Anion Gap 13 (12-20); Aspartate Amino Transferase 22 U/L (5-37); Bilirubin Direct 0.4 mg/dL (0.0-0.5); Bilirubin Total 1.1 mg/dL (0.0-1.0); Blood Urea Nitrogen 25 mg/dL (9-16); Carbon Dioxide 27 mmol/L (22-29); Chloride 107 mmol/L (96-108); Creatinine Clr Calc Pharmacy 61.1; Estimated Glomerular Filt Rate > 60; Glucose Random 157 mg/dL (60-115); Lipase 27 U/L (8-78); Magnesium 2.1 mg/dL (1.6-2.6); Sodium 143 mmol/L (135-145); Total Protein 7.5 g/dL (6.5-8.0)
[2023-06-23 11:49] LABS: Appearance Urine Clear; Color Urine Yellow; Glucose Urine UA Negative (Negative); Leukocyte Esterase Urine Negative (Negative); Nitrite Urine Negative (Negative); PH 6.5 (5.0-9.0); UMIC TRIGGER UACC YES; Urine Blood Moderate (2+) (Negative); Urine Ketones 80 mg/dL (Negative); Urine Protein 300 (3+) mg/dL (Neg-Trace)
[2023-06-23 11:54] LABS: Troponin-I High Sensitivity 26.3 ng/L (<3.5-35.0)
[2023-06-23 12:02] LABS: Bacteria Urine None Seen (None Seen); Hyaline Casts Urine 0-2 /LPF (0-2); Squamous Epithelial Cell Urine 0-2 /HPF (0-2); WBC Urine 0-5 /HPF (0-5)
[2023-06-23 12:08] LABS: TSH reflex Free T4 5.34 uIU/mL (0.32-4.0)
--- NOTE | 2023-06-23 12:17 | PC.NURSE ---
called pt's mother to give status update on pt - perfecto jermaine [phone].
[2023-06-23 12:49] VITALS: BP 178/74; PULSE 72; RESP 16; O2SAT 94
--- NOTE | 2023-06-23 12:51 | PC.NURSE ---
still alert and oriented to self and situation only. pt still verbalizing that the year is 2014. pt reporting no pain steph. vss. nsr on the property assessment monitor. IVF still hung and running. call spring placed within reach.
[2023-06-23 14:59] LABS: Free T4 (Free Thyroxine) 1.05 ng/dL (0.71-1.85)
[2023-06-23 15:03] VITALS: BP 162/62; PULSE 65; RESP 14; TEMP 36.8; O2SAT 95
--- NOTE | 2023-06-23 15:04 | PC.NURSE ---
alert and oriented to self only and situation only. vss and up to date. nsr on the radial router operator. pt verbalizing new onset of right knee pain at a 10/10. pt verbalizes that he needs to have his right knee replaced. pt resting comfortably in no apparent distress. call spring placed within reach.
--- NOTE | 2023-06-23 15:21 | PC.NURSE ---
report called to cecy, vitals changed to [id number] order obtained by provider to do so.
--- NOTE | 2023-06-23 15:37 | PC.NURSE ---
pt belongings list signed by transport as pt stated that he did not want to sign the documentation and wanted to finish his pb&jelly instead. pt currently being transported to [facility].
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
--- NOTE | 2023-06-23 16:59 | MHC.EDTECH ---
This instructional support technician changed linen and pads on bed due to patient voiding on himself. Brought patient a blanket and repositioned with nurse assistance.
--- NOTE | 2023-06-23 18:46 | PC.NURSE ---
pt was two person assist to stand and pivot to wheelchair. pt assisted to car with RN and tech, mother is ride home. Per Doctor Keiko CALLEJAS, pt is cleared for discharge after he spoke to CM services. Pt advised to follow up with primary care and return to ER if they feel that they need further evaluation and treatment.
== END 2023-06-23 18:49 | disposition home or self-care (01) ==
PROVIDERS: Emergency Provider Emergency Medicine
DX: R62.7 Adult failure to thrive (principal); I44.7 Left bundle-branch block, unspecified; R51.9 Headache, unspecified; R53.1 Weakness; Z91.81 History of falling; Z79.899 Other long term (current) drug therapy; Z87.891 Personal history of nicotine dependence; Z91.148 Patient's other noncompliance with medication regimen for other reason
CPT/HCPCS: 36415; 70450; 71045; 80048; 80076; 80164; 81001; 82140; 82550; 82947; 83605; 83690; 83735; 84439; 84443; 84484; 85025; 87040; 93005; 96360; 99285

== ENCOUNTER 2023-06-24 08:21 | Emergency (ER) | payer MEDICARE, MEDICAID, SELFPAY ==
--- NOTE | ~2023-06-24 | XR_ITS ---
EXAMINATION: XR KNEE, RIGHT CLINICAL INFORMATION: Pain after fall COMPARISON: 07/07/2016 TECHNIQUE: Four views of the right knee. FINDINGS: No acute abnormalities compared to 07/07/2016. Tricompartmental osteophyte formation and small joint effusion. There is chronic narrowing of medial tibiofemoral joint space with genu varus deformity. An old well-corticated focus of ossification projects medial to the medial femoral condyle. There is scattered atherosclerotic calcification of peripheral vessels. XR/XR knee RT 4V IMPRESSION: Chronic moderate to severe tricompartmental osteoarthritis of the right knee and small joint effusion. No acute fracture or malalignment.
--- NOTE | ~2023-06-24 | CT_ITS ---
EXAMINATION: CT HEAD WITHOUT CONTRAST CLINICAL INFORMATION: Fall COMPARISON: CT head from 06/23/2023 TECHNIQUE: Contiguous axial imaging was performed from the skull base to vertex without intravenous administration of contrast. This CT examination was performed using dose optimization techniques as appropriate, variously including the following: *Automated exposure control *Adjustment of mA and/or kV according to patient size (this includes techniques or standardized protocols for targeted exams where dose is matched to indication/reason for exam; i.e. extremities or head) *Use of iterative reconstruction technique DLP: 1083 mGy-cm FINDINGS: There is no evidence of acute intracranial hemorrhage or territorial infarction. Chronic white matter small vessel ischemic changes. Right-sided parafalcine calcifications. No abnormal mass effect or midline shift is seen. Alan to white matter differentiation is well preserved. No extra-axial fluid collections are identified. The ventricles are normal in size. There is no abnormal attenuation within the brain parenchyma. The osseous structures and soft tissues are normal. The mastoid air cells and visualized portions of the paranasal sinuses are well aerated. Vertebrobasilar atherosclerotic calcifications. CT/CT cervical spine wo IV con IMPRESSION: 1. No acute intracranial pathology. 2. Chronic white matter small vessel ischemic changes. EXAMINATION: Noncontrast CT scan of the cervical spine. INDICATION: Fall COMPARISON: CT cervical spine from 05/04/2023 TECHNIQUE: Helical, multidetector axial images were obtained from the occiput to the upper thorax. Coronal and sagittal reformats of the cervical spine were provided for interpretation. DLP: 1083 mGy-cm FINDINGS: No acute fractures or dislocations of the cervical spine are seen. Straightening of normal cervical curvature which may be secondary to patient positioning versus muscle spasm. Multilevel degenerative changes. Anatomic alignment and positioning of the vertebral bodies and posterior elements is noted. The atlantoaxial joint and craniovertebral articulations are normal without evidence of subluxation. There is no prevertebral soft tissue swelling. Emphysematous changes of the lungs. Azygous lobe/fissure. IMPRESSION: 1. No acute visible fracture or dislocation. 2. Straightening of normal cervical curvature which may be secondary to patient positioning versus muscle spasm. 3. Multilevel degenerative changes.
--- NOTE | 2023-06-24 08:26 | ED_ITS ---
HPI - Fall General Chief Complaint: Fall Stated Complaint: fall with increased weakness, per ems Time Seen by Provider: 06/24/23 08:24 Source: patient and old records reviewed Mode of arrival: EMS Limitations: no limitations History of Present Illness HPI Narrative: 72 yo male with PMH of hypothyroidism, mild dementia still at home here with c/o falling again at home after refused placement in rehab last night. Had full workup yesterday no infectious symptoms. He reports he went outside on his porch this AM lost his balance fell and hit his head. He had no LOC was on the ground for 30 to 60 minutes. MD complaint: fall Onset (ago): minute(s) (30) Fall from: standing Fall witnessed: no Place fall occurred: home Loss of consciousness: none Prolonged down time: minute(s) (30 to 60 minutes) Symptoms prior to fall: none Context: history of frequent falls Location of injury: head Severity: mild Quality: aching Associated symptoms (after fall): denies Related Data Home Medications Medication Instructions Recorded Confirmed atorvastatin 40 mg tablet 40 mg PO BEDTIME 11/23/22 06/19/23 dicyclomine 20 mg tablet 20 mg PO TID PRN Gastrointestinal 11/23/22 06/19/23 Spasms Or Cramping fluticasone propionate 50 1 spray intranasal BID 11/23/22 06/19/23 mcg/actuation nasal spray,suspension ibuprofen 600 mg tablet 600 mg PO Q6H PRN Pain 11/23/22 06/19/23 pramipexole 0.125 mg tablet 0.125 mg PO TID 11/23/22 06/19/23 albuterol sulfate 2.5 mg/3 mL 2.5 mg inhalation Q4H PRN 05/04/23 06/19/23 (0.083 %) solution for nebulization Shortness Of Breath furosemide 20 mg tablet 20 mg PO DAILY 05/04/23 06/19/23 potassium chloride 20 mEq 20 meq PO DAILY 05/04/23 06/19/23 tablet,extended release trihexyphenidyl 2 mg tablet 2 mg PO BID 05/04/23 06/19/23 Previous Rx's Medication Instructions Recorded albuterol sulfate 90 mcg/actuation 2 puff inhalation Q4H PRN 01/06/22 aerosol inhaler (Ventolin HFA) bronchospasm #6.7 grams divalproex 250 mg tablet,delayed 250 mg PO BID 30 days #60 tabs 01/06/22 release donepezil 5 mg tablet 5 mg PO BEDTIME 30 days #30 tabs 01/06/22 olanzapine 2.5 mg tablet 2.5 mg PO BEDTIME 30 days #30 tabs 01/06/22 paliperidone palmitate 156 mg/mL 156 mg IM QMONTH #1 mL 01/06/22 intramuscular syringe (Invega Sustenna) trazodone 100 mg tablet 100 mg PO BEDTIME PRN Insomnia 30 01/06/22 days #30 tabs finasteride 5 mg tablet 5 mg PO DAILY #90 tabs 06/13/22 tamsulosin 0.4 mg capsule (Flomax) 0.4 mg PO BEDTIME #90 caps 06/13/22 omeprazole 20 mg capsule,delayed 20 mg PO DAILY@0630 90 days #90 08/29/22 release caps losartan 50 mg tablet 50 mg PO DAILY 90 days #90 tabs 11/21/22 levothyroxine 200 mcg tablet 200 mcg PO DAILY@0630 90 days #90 04/24/23 tabs Allergies Allergy/AdvReac Type Severity Reaction Status Date / Time lisinopril [LISINOPRIL] Allergy Intermediate RASH Verified 06/24/23 08:45 Review of Systems Review of Systems: Constitutional : No Fever, No Chills, No Fatigue Cardiovascular : No Chest Pain, No SOB, No Dyspnea on Exertion Respiratory : No Cough, No Sputum Gastrointestinal : No Nausea, No Vomiting, No Diarrhea, No abdominal Pain Genitourinary : No Dysuria, No Urinary Frequency, No Hematuria, Musculoskeletal : No joint pain, No Myalgias, No Joint Swelling Skin : No Skin Lesions, No rash Neuro : No Weakness, No Numbness, No Dizziness, positive Headache Psych : No Anxiety/Panic, No Depression All other systems reviewed and are negative [facility] Past Medical History Attestation statement: The following information was validated with the patient. Medical History Abdominal pain, chronic, right lower quadrant Acquired hypothyroidism Allergic rhinitis Anxiety Benign essential hypertension Benign prostatic hyperplasia with urinary obstruction CAD (coronary artery disease) Constipation COPD (chronic obstructive pulmonary disease) Dementia Diabetes mellitus GERD (gastroesophageal reflux disease) Hypothyroid Insomnia Obesity (BMI 30-39.9) Osteoarthritis Overweight (BMI 25.0-29.9) Pure hypercholesterolemia Vitamin D deficiency Surgical History History of arthroscopic knee surgery History of cardiac catheterization History of colectomy History of esophagogastroduodenoscopy (EGD) History of excision of pilonidal cyst History of eye surgery History of skin graft Hx of colonoscopy Family History Family History Father Stroke CVD (cerebrovascular disease) Mother Hypertension Social History Social History Household Members: None Housing: Apartment Do you presently have visiting nurse or other home services: Yes (Had [facility] ([facility]) and [facility]) Unable to assess alcohol history related to: Refusing to respond Alcohol intake: former Patient Tobacco Use Status: Former Tobacco user Quit Date: long time ago Tobacco use type: Cigarette and Cigar Years Smoked: unknown Smoked in Last 30 Days: No e-Cigarette/Vaping Use: Never Used Second Hand Smoke Exposure: No Use of substances other than those prescribed or required for medical reasons: No Advance Directives: Yes Advance Directives on File: Yes Advance Directives Date on File: 05/06/23 service: No Current occupational status: retired Sexual orientation: Straight/Heterosexual Cognitive needs: No Hearing needs: No Vision needs: No Physical Exam Vital Signs: Vital Signs: Last Vital Signs Temp 99 F 06/24/23 08:46 Pulse 57 06/24/23 08:46 Resp 16 06/24/23 08:46 BP 145/60 H 06/24/23 08:46 Pulse Ox 99 06/24/23 08:46 O2 Del Method Room Air 06/24/23 08:46 BMI result Body Mass Index 29.2 Appearance: Alert. Oriented X2 (time confused). No acute distress. Eyes: Pupils equal, round and reactive to light. ENT: Pharynx normal. atraumatic Neck: Normal inspection. Neck supple. CVS: Normal heart rate and rhythm. Pulses normal. Respiratory: No respiratory distress. Breath sounds normal. Abdomen: Soft and non-tender. Skin: Skin warm and dry. Normal skin color. Normal skin turgor. Extremities: No lower extremity edema. No calf ttp Neuro: Oriented X 2 (time confused). No motor deficit. No sensory deficit. Course Course Course Narrative: mild bump in CPK but eating and drinking Cr normal Patient placed in physician observation at 1016am. The indication for observation is that the patient needs more time for CM to help patient with safe planning At this time the patient is frail, lungs clear, CV RRR, abd nontende r, neuro is intact and at baseline. Medical Decision Making Medical Decision Making [facility] Narrative: 72 yo male with PMH of hypothyroidism, mild dementia still at home just seen yesterday for fall was being placed for rehab but then refused to stay and his mother was involved with the issue and stated she could help him. The patient then went home and lost his balance and fell again. He did hit his head but no LOC. At this time I am repeating labs, obtaining CT head and cspine given the fall and refer to CM if workup negative. He has no extremity pain or injury Differential Diagnosis Differential Diagnoses: The differential diagnosis associated with the presentation includes fall, FTT< ICH, cervical spine injury Admission/Observation Consideration of admission/observation: Escalation of care including admission/observation considered observation until placement Consult Healthcare Provider Management of the patient was discussed with: Pcu Rn Lab Data [facility] Lab Attestation statement: I reviewed the patient's lab results. 06/24/23 08:53 06/24/23 08:53 Labs: Lab Results 06/24/23 06/24/23 06/24/23 Range/Units 08:53 08:53 08:53 WBC 8.9 (4.8-10.8) X10*3/uL RBC 4.46 L (4.60-5.80) X10*6/uL Hgb 13.4 L (14.0-18.0) g/dl Hct 40.5 L (42.0-52.0) % MCV 90.8 (80.0-98.0) fL MCH 30.0 (27.0-33.0) pg MCHC 33.1 (31.0-36.0) g/dl RDW 12.9 (11.0-16.0) % Plt Count 171 (160-400) X10*3/uL MPV 9.4 (9.4-12.4) fL Immature Gran % (Auto) 0.5 H (0.0-0.4) % Neut % (Auto) 77.4 H (45-73) % Lymph % (Auto) 8.6 L (20-40) % [place] % (Auto) 13.1 H (2-11) % Eos % (Auto) 0.3 (0-4) % Baso % (Auto) 0.1 (0-2) % Lymph # (Auto) 0.8 L (1.2-4.9) X10*3/uL [place] # (Auto) 1.2 (0.1-1.2) X10*3/uL Eos # (Auto) 0.0 (0.0-0.4) X10*3/uL Baso # (Auto) 0.0 (0.0-0.2) X10*3/uL Abs Immat Gran (auto) 0.04 H (0.00-0.03) X10*3/uL Absolute Neuts (auto) 6.9 (2.0-8.3) x10*3/uL Absolute Nucleated RBC 0.000 (0.0-0.012) X10*3/uL Nucleated RBC % (auto) 0.0 (0.0-0.2) /100WBC Sodium 139 (135-145) mmol/L Potassium 3.5 (3.3-5.1) mmol/L Chloride 108 (96-108) mmol/L Carbon Dioxide 23 (22-29) mmol/L Anion Gap 12 (12-20) BUN 27 H (9-16) mg/dL Creatinine 1.25 (0.5-1.4) mg/dL Estim Creat Clear Calc 58.3 Estimated GFR 57 Random Glucose 105 (60-115) mg/dL Calcium 9.1 D (8.4-10.2) mg/dL Magnesium 2.1 (1.6-2.6) mg/dL Total Bilirubin 0.9 (0.0-1.0) mg/dL Direct Bilirubin 0.3 (0.0-0.5) mg/dL AST 27 (5-37) U/L ALT 14 (0-40) U/L Alkaline Phosphatase 54 (39-117) U/L Total Creatine Kinase 672 H (38-174) U/L Total Protein 6.6 (6.5-8.0) g/dL Albumin 3.4 L (3.5-5.0) g/dL COVID-19 (DEEPA) Negative (Negative) COVID-19 Clin Com See Note Independent Interpretation I performed an independent interpretation of an: CT Scan Radiology Impression Discussion of test interpretation with radiology: I have reviewed the radiologist's reading. External Record Review External record reviewed: Inpatient record Social Determinants Patient?s care significantly limited by Social Determinants of Health including: Problems related to primary support group Discharge Plan Discharge Clinical Impression: Adult failure to thrive Patient Disposition: Still a Patient Prescriptions: No Action omeprazole 20 mg capsule,delayed release(DR/EC) 20 mg PO DAILY@0630 90 Days Qty: 90 0RF losartan 50 mg tablet 50 mg PO DAILY 90 Days Qty: 90 0RF Protocol: Hold for SBP< HOLD for SBP < : 90 levothyroxine 200 mcg tablet 200 mcg PO DAILY@0630 90 Days Qty: 90 0RF albuterol sulfate [Ventolin HFA] 90 mcg/actuation Hfa Aerosol Inhaler 2 puff inhalation Q4H PRN (Reason: bronchospasm) Qty: 6.7 0RF donepezil 5 mg Tablet 5 mg PO BEDTIME 30 Days Qty: 30 0RF divalproex 250 mg Tablet,Delayed Release (Dr/Ec) 250 mg PO BID 30 Days Qty: 60 0RF olanzapine 2.5 mg Tablet 2.5 mg PO BEDTIME 30 Days Qty: 30 0RF trazodone 100 mg Tablet 100 mg PO BEDTIME PRN (Reason: Insomnia) 30 Days Qty: 30 0RF Invega Sustenna 156 mg/mL syringe 156 mg IM QMONTH Qty: 1 0RF Rx Instructions: LAST DOSE ON 04/27/23 atorvastatin 40 mg Tablet 40 mg PO BEDTIME dicyclomine 20 mg Tablet 20 mg PO TID PRN (Reason: Gastrointestinal Spasms Or Cramping) pramipexole 0.125 mg Tablet 0.125 mg PO TID ibuprofen 600 mg Tablet 600 mg PO Q6H PRN (Reason: Pain) fluticasone propionate 50 mcg/actuation [place],Suspension 1 spray INTRANASAL BID Rx Instructions: administer into each nostril tamsulosin [Flomax] 0.4 mg capsule 0.4 mg PO BEDTIME Qty: 90 2RF finasteride 5 mg tablet 5 mg PO DAILY Qty: 90 2RF albuterol sulfate 2.5 mg /3 mL (0.083 %) Solution For Nebulization 2.5 mg INHALATION Q4H PRN (Reason: Shortness Of Breath) furosemide 20 mg Tablet 20 mg PO DAILY trihexyphenidyl 2 mg Tablet 2 mg PO BID Rx Instructions: give with food (meal/snack) potassium chloride 20 mEq Tablet Extended Release 20 meq PO DAILY
[2023-06-24 08:34] VITALS: BP 145/60; PULSE 57; RESP 16; TEMP 37.2; O2SAT 99
--- NOTE | 2023-06-24 08:40 | PC.NURSE ---
[facility] drawing labs and covid swab - will send them over.
[2023-06-24 08:46] VITALS: BP 118/74; BP 145/60; PULSE 118; PULSE 57; RESP 16; TEMP 37.2; O2SAT 96; O2SAT 99; BMI 29.2
[2023-06-24 08:55] LABS: MANUAL DIFF FLAG NO
--- NOTE | 2023-06-24 08:55 | PC.NURSE ---
patient a&ox2, person/place, pt ble weakness- however patient able to slowly lift/hold, neuro otherwise intact, pt c/o bilateral knee pain from fall today, pt aware he will be needing pt/case management placing to rehab, covid swab obtained, vss, will continue to monitor
[2023-06-24 08:59] LABS: Basophils Percent Auto 0.1 % (0-2); Eosinophils Percent Auto 0.3 % (0-4); Hematocrit 40.5 % (42.0-52.0); Hemoglobin 13.4 g/dl (14.0-18.0); Imm Gran Abs Auto 0.04 X10*3/uL (0.00-0.03); Imm Gran Pct Auto 0.5 % (0.0-0.4); Lymphocytes Absolute Auto 0.8 X10*3/uL (1.2-4.9); Lymphocytes Percent Auto 8.6 % (20-40); Mean Corpuscular HGB Conc 33.1 g/dl (31.0-36.0); Mean Corpuscular Volume 90.8 fL (80.0-98.0); Mean Platelet Volume 9.4 fL (9.4-12.4); Monocytes Absolute Auto 1.2 X10*3/uL (0.1-1.2); Monocytes Percent Auto 13.1 % (2-11); Neutrophils Absolute Auto 6.9 x10*3/uL (2.0-8.3); Neutrophils Percent Auto 77.4 % (45-73); Platelet Count 171 X10*3/uL (160-400); Red Blood Count 4.46 X10*6/uL (4.60-5.80); Red Cell Distribution Width 12.9 % (11.0-16.0); White Blood Count 8.9 X10*3/uL (4.8-10.8)
--- NOTE | 2023-06-24 09:07 | PC.NURSE ---
pt currently a&o to self and situation only - states that the year is 2014. this seems to be the pt's baseline as these were his exact responses as yesterday when he was in the ED. per leonardo han, pt was found outside of his mom's house. pt fell about an hour ago and has been laying on the porch ever since. +headstrike, -LOC, -thinners. pt currently c/o bilateral knee pain and generalized weakness. pt also verbalizing that he is hungry - notified the pt that he has to wait until he goes to CT and provider reads the results - pt now states that he is refusing CT. will notify provider. pt resting comfortably in no apparent distress. respirations even and unlabored. vss.
[2023-06-24 09:16] LABS: Alanine Aminotransferase 14 U/L (0-40); Albumin Level 3.4 g/dL (3.5-5.0); Alkaline Phosphatase 54 U/L (39-117); Anion Gap 12 (12-20); Aspartate Amino Transferase 27 U/L (5-37); Bilirubin Direct 0.3 mg/dL (0.0-0.5); Bilirubin Total 0.9 mg/dL (0.0-1.0); Blood Urea Nitrogen 27 mg/dL (9-16); Calcium 9.1 mg/dL (8.4-10.2); Carbon Dioxide 23 mmol/L (22-29); Chloride 108 mmol/L (96-108); Creatinine Clr Calc Pharmacy 58.3; Estimated Glomerular Filt Rate 57; Glucose Random 105 mg/dL (60-115); Magnesium 2.1 mg/dL (1.6-2.6); Potassium 3.5 mmol/L (3.3-5.1); Sodium 139 mmol/L (135-145); Total Protein 6.6 g/dL (6.5-8.0)
[2023-06-24 09:48] LABS: COVID-19 Test Negative (Negative); IDNOW Serial# 08D9AD1C
[2023-06-24 10:00] VITALS: BP 161/75; PULSE 55; RESP 16; O2SAT 97
[2023-06-24 11:00] VITALS: BP 145/60; PULSE 57; O2SAT 99
--- NOTE | 2023-06-24 11:17 | PC.NURSE ---
pt currently sleeping steph. respirations even and unlabored. resting comfortably in no apparent distress.
--- NOTE | 2023-06-24 11:25 | PC.NURSE ---
pt's vss and up to date. pt resting comfortably in no apparent distress. pt c/o right knee pain rating it at a 5/10. provider aware. xray ordered. diet put in for pt - will call kitchen.
--- NOTE | 2023-06-24 11:55 | PC.NURSE ---
pt returned from x-ray.
--- NOTE | 2023-06-24 13:30 | PC.NURSE ---
pt attempt to ambulate to get to br with 2 assist, pt unable, pt unable to use urinal as well, provider verbal order to straight cath
--- NOTE | 2023-06-24 16:32 | MHC.CM.ED ---
Received case management consult from Dr Rayo. Patient was in the ER on 06/23. STR was recommended at that time. Patient declined and was discharged home. Patient's mother transported patient home. Patient returned to ER after a fall. Work up still negative. Physical therapy eval completed. Short term rehab is recommended. Patient is agreeable to rehab after conversation with Dr Rayo. Referral broadcasted in [facility]. Patient has a history of bipolar and has [facility] to help with medication compliance. [facility] PASRR Level 2 is needed. Already submitted by T/W. Discharge plan discussed with patient's mother, Gabriela. Gabriela is requesting to speak to patient so she can grab clothes for patient for rehab. Gabriela is very concerned patient is on a stretcher because she was on a stretcher for 7 hours and it was torture. Emotional support provided. Also explained patient would be moved to ER overflow once a bed became available. Replaced by [facility] and [facility] are only facilities able to offer a bed at this time. Gabriela would prefer Replaced by [facility]. Cherelle Son RN has been asked to provide patient with a telephone so he can speak to his mother. Continue to monitor for d/c needs.
--- NOTE | 2023-06-24 18:24 | PC.NURSE ---
pt sitting in stretcher w/ dinner tray. resting comfortably in no apparent distress. respirations even and labored. pt verbalizing no pain steph.
--- NOTE | 2023-06-24 20:07 | MHC.EDTECH ---
This tech assumed care of this pt. Pt was cleaned by this tech repositioned on stretcher for comfort and given a new hospital gown
[2023-06-24 22:13] VITALS: BP 137/58; PULSE 50; RESP 14; O2SAT 97
--- NOTE | 2023-06-25 12:57 | PC.NURSE ---
at 0800 this morning pt states bladder discomfort and is unable to void bladder scan for 640 provider notified
--- NOTE | 2023-06-25 14:52 | MHC.CM.ED ---
Patient remains in ER overflow. [facility] is in the process of obtaining insurance auth. [facility] PASRR Level 2 obtained. Continue to monitor for d/c needs.
--- NOTE | 2023-06-25 15:10 | PHA.MEDREC ---
Pharmacy Consult ? Medication Reconciliation Pharmacy has completed the medication reconciliation. INVEGA LAST GIVEN 06/03 PER ALISON
[2023-06-25 16:00] VITALS: BP 157/77; PULSE 52; RESP 16; TEMP 36.3; O2SAT 98
[2023-06-25] MEDS: Omeprazole 20 MG CAPSULE.DR PO (17:33)
[2023-06-25] MEDS: Finasteride 5 MG TABLET PO (17:33)
[2023-06-25] MEDS: Losartan Potassium 50 MG TABLET PO (17:33)
[2023-06-25] MEDS: Furosemide 20 MG TABLET PO (17:33)
[2023-06-25] MEDS: Levothyroxine Sodium 200 MCG TABLET PO (17:33)
[2023-06-25] MEDS: Potassium Chloride ER 20 MEQ TAB.ER.PRT PO (17:34)
--- NOTE | 2023-06-25 18:25 | MHC.EDTECH ---
PT ATE 100 % OF EAL ,DRANK 240 ML FLUIDS .
--- NOTE | 2023-06-25 18:30 | PC.NURSE ---
tolerated 100% of dinner, has been asking to leave mother was in to visit patient today
[2023-06-25 20:08] VITALS: BP 140/62; PULSE 51; RESP 20; TEMP 36.7; O2SAT 92
[2023-06-25] MEDS: Divalproex Sodium 250 MG TABLET.DR PO (21:40)
[2023-06-25] MEDS: Pramipexole Di-HCL 0.125 MG TABLET PO (21:40)
[2023-06-25] MEDS: OLANZapine 2.5 MG TABLET PO (21:40)
[2023-06-25] MEDS: Tamsulosin HCL 0.4 MG CAPSULE PO (21:40)
[2023-06-25] MEDS: Atorvastatin Calcium 40 MG TABLET PO (21:40)
[2023-06-25] MEDS: Donepezil HCl 5 MG TABLET PO (21:40)
[2023-06-26] MEDS: Omeprazole 20 MG CAPSULE.DR PO (05:53)
[2023-06-26] MEDS: Levothyroxine Sodium 200 MCG TABLET PO (05:53)
--- NOTE | 2023-06-26 05:54 | PC.NURSE ---
This RN assumed care at 1900. Patient yelling intermittently, stated that he didn't want his PRN sleeping pill. Patient medication compliant and was safe on checks. RN gave report to Kelli VALDEZ at 0000.
[2023-06-26 06:00] VITALS: BP 129/51; PULSE 77; RESP 19; TEMP 36.3
--- NOTE | 2023-06-26 07:06 | PC.NURSE ---
Assumed care 00:00 on 06/26. Pt continues in ED overflow. Alert, oriented to self only, confused. Redirection and reassurance provided. Breathing even and unlabored without distress. Pt slept most of the night. F/c patent of concentrated cyu. Repositioning provided. Bed alarm on for safety. Handoff report given 06:45.
[2023-06-26] MEDS: Fluticasone Propionate Nasal 16 GM SPRAY 1 SPRAY NOSTRIL-B (08:27)
[2023-06-26] MEDS: Furosemide 20 MG TABLET PO (08:27)
[2023-06-26] MEDS: Losartan Potassium 50 MG TABLET PO (08:27)
[2023-06-26] MEDS: Divalproex Sodium 250 MG TABLET.DR PO (08:27)
[2023-06-26] MEDS: Pramipexole Di-HCL 0.125 MG TABLET PO (08:27)
[2023-06-26] MEDS: Potassium Chloride ER 20 MEQ TAB.ER.PRT PO (08:29)
[2023-06-26 13:44] VITALS: BP 126/59; PULSE 52; RESP 18; TEMP 36.6; O2SAT 99
--- NOTE | 2023-06-26 15:10 | MHC.CM.ED ---
Patient remains in ER overflow. [place] will only authorize [facility] [place] of [facility]. That will cover room and board and part B will cover rehab 4x/week. [facility] does not have a [facility] available at this time. [facility] is the only facility able to offer a [facility]. Insurance auth has been obtained by [facility]. Patient can leave at 530pm. Patient, Elisabet VALDEZ and Jillian CARRASQUILLO aware. Attempted to notify patient's mother, Gabriela, via telephone at [phone]. Left brief message explaining why [facility] was only facility that was able to accept patient. CM contact info also provided. Continue to monitor for d/c needs.
--- NOTE | 2023-06-26 18:10 | PC.NURSE ---
Patient waiting for transport to be discharged to [facility], patient repeatedly asked to have perry catheter discontinued, per provider's verbal order patient to keep catheter in place due to urinary retention. Patient agitated asking to be discharged home, patient advised the discharge plan is rehab facility,
== END 2023-06-26 19:15 | disposition skilled nursing facility (03) ==
PROVIDERS: Emergency Provider Emergency Medicine; PCP Internal Medicine
DX: R62.7 Adult failure to thrive (principal); Z68.29 Body mass index [BMI] 29.0-29.9, adult; R33.9 Retention of urine, unspecified; M25.562 Pain in left knee; M25.561 Pain in right knee; R29.6 Repeated falls; Z91.81 History of falling; E11.9 Type 2 diabetes mellitus without complications; I10 Essential (primary) hypertension; E78.00 Pure hypercholesterolemia, unspecified; J44.9 Chronic obstructive pulmonary disease, unspecified; F03.90 Unspecified dementia, unspecified severity, without behavioral disturbance, psychotic disturbance, mood disturbance, and anxiety; Z87.891 Personal history of nicotine dependence; Z79.899 Other long term (current) drug therapy; Z20.822 Contact with and (suspected) exposure to COVID-19
CPT/HCPCS: 36415; 51702; 70450; 72125; 73564; 80048; 80076; 82550; 83735; 85025; 87635; 97162; 99285

== ENCOUNTER 2023-11-17 09:15 | Emergency (ER) | payer MEDICARE, MEDICAID, SELFPAY ==
--- NOTE | ~2023-11-17 | XR_ITS ---
EXAMINATION: XR ABDOMEN KUB CLINICAL INDICATION: Constipation. COMPARISON: None available. TECHNIQUE: AP view of the abdomen. FINDINGS: There is moderate stool in the colon without any significant distention. The small bowel loops are normal. There is no organomegaly. No radiopaque calculi. There are degenerative disc changes with spondylosis L1-L2 disc level. XR/XR KUB IMPRESSION: Moderate constipation. No acute process seen.
[2023-11-17 09:43] VITALS: BP 187/97; BP 210/100; PULSE 58; PULSE 60; RESP 16; TEMP 36.6; O2SAT 97; O2SAT 99; BMI 28.5
--- NOTE | 2023-11-17 09:43 | ED_ITS ---
HPI - Male Genitourinary General Chief complaint: Urogenital-Male Stated complaint: UNABLE TO URINATE PER EMS Time Seen by Provider: 11/17/23 09:33 Source: patient Mode of arrival: ambulatory Limitations: no limitations History of Present Illness HPI Narrative: 73 year old male with pmhx significant for GERD, diabetes, vitamin-D deficiency, CAD, HTN, HDL, anxiety, hypothyroidism, eczema, BPH with urinary obstruction presents to the ED today via EMS from home for evaluation of urinary and bowel retention x1 day. He currently endorses suprapubic pain/ distention. Has not urinated since yesterday. Admits that he has not been compliant with this Flomax at home. Adds that he has not passed a BM since yesterday. 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 Denies fever, chills, n/v, diarrhea, flank pain, dysuria, hematuria. Related Data Home Medications Medication Instructions Recorded Confirmed dicyclomine 20 mg tablet 20 mg PO TID PRN Gastrointestinal 11/23/22 06/25/23 Spasms Or Cramping fluticasone propionate 50 1 spray intranasal BID 11/23/22 06/25/23 mcg/actuation nasal spray,suspension ibuprofen 600 mg tablet 600 mg PO Q6H PRN Pain 11/23/22 06/25/23 pramipexole 0.125 mg tablet 0.125 mg PO TID 11/23/22 06/25/23 albuterol sulfate 2.5 mg/3 mL 2.5 mg inhalation Q4H PRN 05/04/23 06/25/23 (0.083 %) solution for nebulization Shortness Of Breath furosemide 20 mg tablet 20 mg PO DAILY 05/04/23 06/25/23 potassium chloride 20 mEq 20 meq PO DAILY 05/04/23 06/25/23 tablet,extended release Previous Rx's Medication Instructions Recorded albuterol sulfate 90 mcg/actuation 2 puff inhalation Q4H PRN 01/06/22 aerosol inhaler (Ventolin HFA) bronchospasm #6.7 grams donepezil 5 mg tablet 5 mg PO BEDTIME 30 days #30 tabs 01/06/22 olanzapine 2.5 mg tablet 2.5 mg PO BEDTIME 30 days #30 tabs 01/06/22 paliperidone palmitate 156 mg/mL 156 mg IM QMONTH #1 mL 01/06/22 intramuscular syringe (Invega Sustenna) trazodone 100 mg tablet 100 mg PO BEDTIME PRN Insomnia 30 01/06/22 days #30 tabs tamsulosin 0.4 mg capsule (Flomax) 0.4 mg PO BEDTIME #90 caps 06/13/22 levothyroxine 200 mcg tablet 200 mcg PO DAILY@0630 90 days #90 04/24/23 tabs atorvastatin 40 mg tablet 40 mg PO BEDTIME #90 tabs 08/19/23 divalproex 250 mg tablet,delayed 250 mg PO BID #180 tabs 08/19/23 release finasteride 5 mg tablet 5 mg PO DAILY #90 tabs 08/19/23 losartan 50 mg tablet 50 mg PO DAILY 90 days #90 tabs 08/19/23 omeprazole 20 mg capsule,delayed 20 mg PO DAILY@0630 90 days #90 08/19/23 release caps docusate sodium 100 mg capsule 100 mg PO DAILY PRN constipation 11/17/23 (Colace) #10 caps polyethylene glycol 3350 17 17 g PO DAILY PRN constipation 11/17/23 gram/dose oral powder (Miralax) #119 grams tamsulosin 0.4 mg capsule 0.4 mg PO BEDTIME 3 weeks #21 caps 11/17/23 Allergies Allergy/AdvReac Type Severity Reaction Status Date / Time lisinopril [LISINOPRIL] Allergy Intermediate RASH Verified 11/17/23 09:39 [facility] Past Medical History Medical History Abdominal pain, chronic, right lower quadrant Acquired hypothyroidism Allergic rhinitis Anxiety Benign essential hypertension Benign prostatic hyperplasia with urinary obstruction CAD (coronary artery disease) Constipation COPD (chronic obstructive pulmonary disease) Dementia Diabetes mellitus GERD (gastroesophageal reflux disease) Hypothyroid Insomnia Obesity (BMI 30-39.9) Osteoarthritis Overweight (BMI 25.0-29.9) Pure hypercholesterolemia Vitamin D deficiency Surgical History History of arthroscopic knee surgery History of cardiac catheterization History of colectomy History of esophagogastroduodenoscopy (EGD) History of excision of pilonidal cyst History of eye surgery History of skin graft Hx of colonoscopy Family History Family History Father Stroke CVD (cerebrovascular disease) Mother Hypertension Social History Social History Household Members: None Housing: Apartment Do you presently have visiting nurse or other home services: Yes (Had [facility] ([facility]) and [facility]) Unable to assess alcohol history related to: Refusing to respond Alcohol intake: former Comment: PT on 15 minute checks Patient Tobacco Use Status: Former Tobacco user Quit Date: long time ago Tobacco use type: Cigarette and Cigar Years Smoked: unknown Smoked in Last 30 Days: No e-Cigarette/Vaping Use: Never Used Second Hand Smoke Exposure: No Use of substances other than those prescribed or required for medical reasons: No Advance Directives: Yes Advance Directives on File: Yes Advance Directives Date on File: 05/06/23 service: No Current occupational status: retired Sexual orientation: Straight/Heterosexual Cognitive needs: No Hearing needs: No Vision needs: No Physical Exam 2 Vital Signs: Vital Signs: Last Vital Signs Temp 98.1 F 11/17/23 15:54 Pulse 48 L 11/17/23 15:54 Resp 16 11/17/23 15:54 BP 145/64 H 11/17/23 15:54 Pulse Ox 97 11/17/23 15:54 O2 Del Method Room Air 11/17/23 15:54 BMI result Body Mass Index 28.5 Patient hypertensive, vitals otherwise wnl. Const: General: cooperative, comfortable and no acute distress Nutritional Appearance: overweight Orientation/consciousness: patient oriented x3 L imitations: no limitations Eyes: General: appearance normal, both eyes and all related structures C onjunctivae: conjunctivae normal Sclerae: sclerae normal Pupils: Equal, round and reactive pupils present GI: Other: + abdomen distended, ttp of suprapubic r egion, no rebound or guarding. normoactive bs x4. Inspection: Yes normal to inspection : Other: + Kayal RN at bedside during sensitive exam General: Yes no CVA tenderness Male General Exam: Yes normal external exam Penis: normal penis Meatus: meatus normal Scrotum: scrotum normal Testes: Testes normal Back/Spine/Pelvis: Back: no CVA tenderness Skin: General skin exam: no rashes or lesions noted Neuro: General: patient oriented x3 and gait normal Cranial nerves: Yes Equal, round and reactive pupils present Course Course Course Narrative: 1000-- Initial bladder scan showing 850cc > post void residual of 695cc. patient tolerated straight cath well. > awaiting labs, KUB, and UA 1326-- CBC without leukocytosis or left shift. No anemia. H&H stable. Chemistry without acute electrolyte abnormality requiring intervention. Elevated BUN to 21, improved since last visit. Creatinine WNL. Lipase WNL. Urine is negative for nitrites, leukocyte esterase, white blood cells and bacteria. It does show 3-5 RBC likely secondary to traumatic straight cath to obtain urine sample. No UTI. KUB showing moderate constipation otherwise no acute process demonstrated > patient received MiraLax in ED and was able to pass a normal bowel movement. Has also been ambulating to bathroom with 2:1 assist to urinate. 1610-- Pre-void bladder scan showing 397 cc. post-void residual of 327 cc > patient retaining urine likely secondary to BPH. 16F perry cath successfully placed by RN successfully with output of 250 cc clear dark yellow urine. no theodora blood noted in catheter bag. draining easily into cath bag. no complications. leg bag applied. Patient to be discharged home with perry in place, plan to f/o with urology in 3-5d (referral to Dr. Benitez provided). Will also send tamsulosin to patient's pharmacy. educated on importance of medication compliance > miralax and colace sent to pharmacy for constipation Medications Administered Discontinued Medications Generic Name Dose Route Start Last Admin Trade Name Leonard PRN Reason Stop Dose Admin Lidocaine HCl 10 ml 11/17/23 09:42 11/17/23 10:20 Lidocaine Hcl 2 % Urojet 10 Ml Jel.Pf.Wilder TOPICAL 11/17/23 09:43 Not Given ONCE ONE Lidocaine HCl 10 ml 11/17/23 15:05 11/17/23 15:55 Lidocaine Hcl 2 % Urojet 10 Ml Jel.Pf.Wilder TOPICAL 11/17/23 15:06 10 ml ONCE ONE Administration Polyethylene Glycol 17 gm 11/17/23 10:42 11/17/23 11:12 Polyethylene Glycol 3350 17 Gm Powd.Pack PO 11/17/23 10:43 17 gm ONCE ONE Administration Medical Decision Making Medical Decision Making [facility] Narrative: 73 year old male with pmhx significant for GERD, diabetes, vitamin-D deficiency, CAD, HTN, HDL, anxiety, hypothyroidism, eczema, BPH with urinary obstruction presents to the ED today via EMS from home for evaluation of urinary and bowel retention x1 day. VSS. Patient nontoxic appearing and in NAD. On exam, abdomen distended, ttp of suprapubic region, no rebound or guarding. normoactive bs x4. no cvat b/l. sensitive exam wnl. Clinical concern for urinary retention, urinary obstruction, BPH, UTI. Unlikely nephrolithiasis, obstructive uropathy, pyelonephritis, acute abdomen. Plan for labs, UA, straight cath, KUB, and re- evaluation. Differential Diagnosis Differential Diagnoses: The differential diagnosis associated with the presentation includes as above. Admission/Observation Consideration of admission/observation: Escalation of care including admission/observation considered Lab Data MDM Lab Attestation statement: I reviewed the patient's lab results. as above. 11/17/23 09:48 11/17/23 10:39 Labs: Lab Results 11/17/23 11/17/23 11/17/23 Range/Units 09:48 09:56 10:39 WBC 9.5 (4.8-10.8) X10*3/uL RBC 5.36 D (4.60-5.80) X10*6/uL Hgb 16.1 D (14.0-18.0) g/dl Hct 47.8 (42.0-52.0) % MCV 89.2 (80.0-98.0) fL MCH 30.0 (27.0-33.0) pg MCHC 33.7 (31.0-36.0) g/dl RDW 14.6 (11.0-16.0) % Plt Count 164 (160-400) X10*3/uL MPV Not Reportable Immature Gran % (Auto) 0.3 (0.0-0.4) % Neut % (Auto) 75.5 H (45-73) % Lymph % (Auto) 15.0 L (20-40) % [place] % (Auto) 8.2 (2-11) % Eos % (Auto) 0.6 (0-4) % Baso % (Auto) 0.4 (0-2) % Lymph # (Auto) 1.4 (1.2-4.9) X10*3/uL [place] # (Auto) 0.8 (0.1-1.2) X10*3/uL Eos # (Auto) 0.1 (0.0-0.4) X10*3/uL Baso # (Auto) 0.0 (0.0-0.2) X10*3/uL Abs Immat Gran (auto) 0.03 (0.00-0.03) X10*3/uL Absolute Neuts (auto) 7.2 (2.0-8.3) x10*3/uL Absolute Nucleated RBC 0.000 (0.0-0.012) X10*3/uL Nucleated RBC % (auto) 0.0 (0.0-0.2) /100WBC Smear Tech's Comments VERIFIED Sodium 142 (135-145) mmol/L Potassium 4.0 (3.3-5.1) mmol/L Chloride 105 (96-108) mmol/L Carbon Dioxide 28 (22-29) mmol/L Anion Gap 13 (12-20) BUN 21 H (9-16) mg/dL Creatinine 1.09 (0.5-1.4) mg/dL Estim Creat Clear Calc 65.1 Estimated GFR > 60 Random Glucose 100 (60-115) mg/dL Calcium 9.2 (8.4-10.2) mg/dL Magnesium 2.3 (1.6-2.6) mg/dL Lipase 37 (8-78) U/L Urine Color Yellow Urine Appearance Clear Urine pH 6.5 (5.0-9.0) Ur Specific [place] 1.015 (1.005-1.025) Urine Protein 100 (2+) H (Neg-Trace) mg/dL Urine Glucose (UA) Negative (Negative) mg/dL Urine Ketones Negative (Negative) mg/dL Urine Blood Trace (Negative) Urine Nitrite Negative (Negative) Ur Leukocyte Esterase Negative (Negative) Urine RBC 3-5 H (0-2) /HPF Urine WBC 0-5 (0-5) /HPF Ur Squamous Epith Cells 0-2 (0-2) /HPF Urine Bacteria None Seen (None Seen) Hyaline Casts 0-2 (0-2) /LPF Independent Interpretation I performed an independent interpretation of an: Plain X-Ray Interpretation: I personally reviewed KUB and agree with radiologist's interpretation. Radiology Impression Discussion of test interpretation with radiology: I have reviewed the radiologist's reading. Radiologist Impression: XR KUB IMPRESSION: Moderate constipation. No acute process seen. Independent Historian Clinical information obtained from an independent historian. History obtained from or confirmed by: EMS External Record Review External record reviewed: Inpatient record, Office record, Outpatient record, Prior outpatient labs, Prior outpatient radiology, Primary care record and Outside ED record Prescription Management I considered prescription management with: Pain Medication and Other (tamsulosin, miralax, colace) Chronic Conditions Patient?s care impacted by: Other (BPH) Social Determinants Patient?s care significantly limited by Social Determinants of Health including: Other Social Determinant of Health Procedures Catheter Insertion (Urinary) Date of insertion: 11/17/23 Time of insertion: 16:00 Reason for placing: Yes Reason for placing indwelling catheter: Acute urinary retention Bladder scan/ultrasound used before catheterization: Yes Estimated amount of urine (mLs): 327 Antiseptic solution prep: Povidone-Iodine Topical anesthesia used: Yes Size (Bengali): 16 Catheter balloon size (mL): 10 Catheter balloon amount: 10 Results: successfully catheterized-immediate flow Procedure performed: without complications Critical Care Time Critical Care Time Critical Care Time: Yes Total Critical Care Time: 40 Attestation: Critical care time in the amount of 40 minutes has been provided to the patient in terms of direct patient care, frequent reevaluation, review and interpretation of medical data and results, and management of potentially life- threatening conditions. This is all outside of any medical procedures. Discharge Plan Discharge Clinical Impression: Acute urinary retention, Constipation, Benign prostatic hyperplasia, Perry catheter in place Patient Disposition: Still a Patient Instructions: Constipation (ED), Urinary Retention in Men (ED), Enlarged Prostate (BPH) (ED), High Fiber Diet (ED) Additional Instructions: Your lab work today is reassuring. Your urine does not demonstrate infection. You had 850 cc of urine in your bladder today. This is most likely due to enlarged prostate. Please restart your Flomax (tamsulosin) as stopping this medication can cause your prostate to enlarge, making it difficult to urinate. A Perry catheter was placed today to help with urination. Follow the Perry catheter instructions. Follow-up with Dr. Rivera Jackson in 4-7 days for re-evaluation and possible removal of Perry catheter. The number to his office has been provided to you. CALL THEM TO MAKE AN APPOINTMENT REGARDING. THEY WILL NOT CALL YOU. The x-ray of your abdomen showed moderate amount of constipation in your colon. You received MiraLax and were successful at passing bowel movement in ED. MiraLax is a laxative that has been sent to your pharmacy. Take this as needed to move your bowels. Colace as a stool softener that has been sent to your pharmacy. Take this as needed to soft in stool to make it easier to pass. Make sure to stick to a high-fiber diet. If symptoms persist or worsen please return to emergency department. In the case of an emergency call 911. [facility]: [phone] Prescriptions: New polyethylene glycol 3350 [Miralax] 17 gram/dose powder 17 g PO DAILY PRN (Reason: constipation) Qty: 119 0RF docusate sodium [Colace] 100 mg capsule 100 mg PO DAILY PRN (Reason: constipation) Qty: 10 0RF tamsulosin 0.4 mg capsule 0.4 mg PO BEDTIME 21 Days Qty: 21 0RF No Action levothyroxine 200 mcg tablet 200 mcg PO DAILY@0630 90 Days Qty: 90 0RF atorvastatin 40 mg tablet 40 mg PO BEDTIME Qty: 90 0RF finasteride 5 mg tablet 5 mg PO DAILY Qty: 90 2RF losartan 50 mg tablet 50 mg PO DAILY 90 Days Qty: 90 0RF Protocol: Hold for SBP< HOLD for SBP < : 90 omeprazole 20 mg capsule,delayed release(DR/EC) 20 mg PO DAILY@0630 90 Days Qty: 90 0RF divalproex 250 mg tablet,delayed release (DR/EC) 250 mg PO BID Qty: 180 0RF albuterol sulfate [Ventolin HFA] 90 mcg/actuation Hfa Aerosol Inhaler 2 puff inhalation Q4H PRN (Reason: bronchospasm) Qty: 6.7 0RF donepezil 5 mg Tablet 5 mg PO BEDTIME 30 Days Qty: 30 0RF olanzapine 2.5 mg Tablet 2.5 mg PO BEDTIME 30 Days Qty: 30 0RF trazodone 100 mg Tablet 100 mg PO BEDTIME PRN (Reason: Insomnia) 30 Days Qty: 30 0RF Invega Sustenna 156 mg/mL syringe 156 mg IM QMONTH Qty: 1 0RF Rx Instructions: LAST DOSE ON 04/27/23 dicyclomine 20 mg Tablet 20 mg PO TID PRN (Reason: Gastrointestinal Spasms Or Cramping) pramipexole 0.125 mg Tablet 0.125 mg PO TID ibuprofen 600 mg Tablet 600 mg PO Q6H PRN (Reason: Pain) fluticasone propionate 50 mcg/actuation [place],Suspension 1 spray INTRANASAL BID Rx Instructions: administer into each nostril tamsulosin [Flomax] 0.4 mg capsule 0.4 mg PO BEDTIME Qty: 90 2RF albuterol sulfate 2.5 mg /3 mL (0.083 %) Solution For Nebulization 2.5 mg INHALATION Q4H PRN (Reason: Shortness Of Breath) furosemide 20 mg Tablet 20 mg PO DAILY potassium chloride 20 mEq Tablet Extended Release 20 meq PO DAILY Referrals: [facility] [Provider Group] - 5 days Interventions: ED Discharge Assessment Last Done: 11/17/23 18:25 Discharge Date/Time: 11/17/23 18:28
--- NOTE | 2023-11-17 10:01 | PC.NURSE ---
a&ox4. vss and up to date aside from being hypertensive. pt presents to the ED d/t inability to void/have BM x 1 day. pt c/o 10/10 abd pain. distention noted/tender to touch. pre-void bladder scan displayed 878ml. pt attempted to void on his own into urinal. post-void residual bladder scan displayed 695ml. provider notified/aware. straight catheterization ordered/completed. 850ml of clear pale yellow urine noted immediately post catheterization. urine obtained/sent to lab. 20gIV placed in the right forearm - labs obtained/sent to lab. pt verbalizing pain level decreased post catheterization. no sob/wob noted. respirations even and unlabored. plan of care ongoing. call spring placed within reach.
[2023-11-17 10:03] LABS: Basophils Percent Auto 0.4 % (0-2); Eosinophils Absolute Auto 0.1 X10*3/uL (0.0-0.4); Eosinophils Percent Auto 0.6 % (0-4); Hematocrit 47.8 % (42.0-52.0); Hemoglobin 16.1 g/dl (14.0-18.0); Imm Gran Abs Auto 0.03 X10*3/uL (0.00-0.03); Imm Gran Pct Auto 0.3 % (0.0-0.4); Lymphocytes Absolute Auto 1.4 X10*3/uL (1.2-4.9); MANUAL DIFF FLAG SCAN; Mean Corpuscular HGB Conc 33.7 g/dl (31.0-36.0); Mean Corpuscular Volume 89.2 fL (80.0-98.0); Monocytes Absolute Auto 0.8 X10*3/uL (0.1-1.2); Monocytes Percent Auto 8.2 % (2-11); Neutrophils Absolute Auto 7.2 x10*3/uL (2.0-8.3); Neutrophils Percent Auto 75.5 % (45-73); PLT CLUMP 1; Red Blood Count 5.36 X10*6/uL (4.60-5.80); Red Cell Distribution Width 14.6 % (11.0-16.0); SCAN SMEAR FLAG 1
--- NOTE | 2023-11-17 10:07 | PC.NURSE ---
pt to xray at this time.
[2023-11-17 10:09] LABS: Appearance Urine Clear; Color Urine Yellow; Glucose Urine UA Negative (Negative); Leukocyte Esterase Urine Negative (Negative); Nitrite Urine Negative (Negative); PH 6.5 (5.0-9.0); Specific Gravity - Urine 1.015 (1.005-1.025); UMIC TRIGGER UACC YES; Urine Blood Trace (Negative); Urine Ketones Negative (Negative); Urine Protein 100 (2+) mg/dL (Neg-Trace)
[2023-11-17 10:19] LABS: Bacteria Urine None Seen (None Seen); Hyaline Casts Urine 0-2 /LPF (0-2); Squamous Epithelial Cell Urine 0-2 /HPF (0-2); WBC Urine 0-5 /HPF (0-5)
[2023-11-17 10:22] LABS: Platelet Count 164 X10*3/uL (160-400); SLIDE REVIEW VERIFIED; White Blood Count 9.5 X10*3/uL (4.8-10.8)
[2023-11-17 10:59] LABS: Anion Gap 13 (12-20); Blood Urea Nitrogen 21 mg/dL (9-16); Calcium 9.2 mg/dL (8.4-10.2); Carbon Dioxide 28 mmol/L (22-29); Chloride 105 mmol/L (96-108); Creatinine Clr Calc Pharmacy 65.1; Estimated Glomerular Filt Rate > 60; Glucose Random 100 mg/dL (60-115); Lipase 37 U/L (8-78); Magnesium 2.3 mg/dL (1.6-2.6); Sodium 142 mmol/L (135-145)
[2023-11-17 11:11] VITALS: BP 159/73; PULSE 78; RESP 16; TEMP 36.6; O2SAT 95
[2023-11-17] MEDS: polyethylene glycoL 3350 17 GM POWD.PACK PO (11:12)
[2023-11-17 15:54] VITALS: BP 145/64; PULSE 48; RESP 16; TEMP 36.7; O2SAT 97
[2023-11-17] MEDS: Lidocaine HCl 2 % Urojet 10 ML JEL.PF.APP TOPICAL (15:55)
--- NOTE | 2023-11-17 16:10 | PC.NURSE ---
pre-void bladder scan obtained displaying 397ml. pt ambulated to the restroom w/ 2:1 assist attempting to void. post-void residual bladder scan displays 327ml. ED provider notified/aware. 16Fr perry catheter inserted per provider order. 250ml of clear dark yellow urine noted immediately post output. pt tolerated well. leg bed applied to perry catheter so pt is able to be discharged. vss and up to date. respirations remain even and unlabored. call spring placed within reach.
--- NOTE | 2023-11-17 17:41 | PC.NURSE ---
pt continues to wait for transportation via EMS at this time. resting comfortably in no apparent distress. call spring placed within reach.
--- NOTE | 2023-11-17 18:00 | PC.NURSE ---
report given to tonia at this time. pt being discharged at this time.
== END 2023-11-17 18:28 | disposition still patient (30) ==
PROVIDERS: Physician Assistant Medical; Emergency Provider Emergency Medicine Emergency Medical Services
DX: R33.9 Retention of urine, unspecified (principal); K59.00 Constipation, unspecified; N40.1 Benign prostatic hyperplasia with lower urinary tract symptoms; R33.8 Other retention of urine; Z79.899 Other long term (current) drug therapy
CPT/HCPCS: 36415; 51701; 51702; 74018; 80048; 81001; 83690; 83735; 85025; 99284; 99285

== ENCOUNTER 2023-11-18 16:09 | Emergency (ER) | payer MEDICARE, MEDICAID, SELFPAY ==
[2023-11-18 16:20] VITALS: BP 170/60; BP 184/82; PULSE 30; PULSE 48; RESP 19; TEMP 36.7; O2SAT 96; O2SAT 97; BMI 30.1
[2023-11-18 16:34] VITALS: BP 184/82; PULSE 48; RESP 16; TEMP 36.7; O2SAT 96
--- NOTE | 2023-11-18 16:36 | PC.NURSE ---
Pt coming from home via EMS, pt alert and oriented. Breathing even and unlabored. Skin dry and slightly pale. Pt reports he wants his indwelling perry cath out so he can feel normal again. Pt reports it was placed a few months ago here at [facility] for urinary retention. Pt reports he attempted to pull it out himself today but it was too painful. Pt noted to have urine leaking around cath, pants wet. Urine clear and dark in perry bag, strong odor. pt reports lower abd pain and numbness, 4/10. pt denies SOB, CP, fevers, cough, weakness, dizziness.
--- NOTE | 2023-11-18 16:39 | PC.NURSE ---
per EMS pts HR dropped into 30s, pt placed on bedside phototypesetting equipment monitor at this time. Sinus bradycardia in the 40s.
--- NOTE | 2023-11-18 17:07 | PC.NURSE ---
pts perry cath removed, pt bladder scanned and 36 mL remained in bladder.
--- NOTE | 2023-11-18 17:10 | ED_ITS ---
HPI - Male Genitourinary General Chief complaint: Urogenital-Male Stated complaint: WANTS CATHETER REMOVED Time Seen by Provider: 11/18/23 16:17 Source: patient and EMS Mode of arrival: EMS History of Present Illness HPI Narrative: 73-year-old male who presents via EMS stating that his lower abdomen was giving him some pain, specifically is penis, and he attempted to remove his catheter but was unsuccessful. Patient does exhibit some difficulty with time orientation as he thought that the Renteria catheter was placed months ago, however according to notes that was placed yesterday. In addition, patient states that the healthcare aide came by today but also endorses that he did not take any medications today because he did not feel like it. Related Data Home Medications Medication Instructions Recorded Confirmed dicyclomine 20 mg tablet 20 mg PO TID PRN Gastrointestinal 11/23/22 06/25/23 Spasms Or Cramping fluticasone propionate 50 1 spray intranasal BID 11/23/22 06/25/23 mcg/actuation nasal spray,suspension ibuprofen 600 mg tablet 600 mg PO Q6H PRN Pain 11/23/22 06/25/23 pramipexole 0.125 mg tablet 0.125 mg PO TID 11/23/22 06/25/23 albuterol sulfate 2.5 mg/3 mL 2.5 mg inhalation Q4H PRN 05/04/23 06/25/23 (0.083 %) solution for nebulization Shortness Of Breath furosemide 20 mg tablet 20 mg PO DAILY 05/04/23 06/25/23 potassium chloride 20 mEq 20 meq PO DAILY 05/04/23 06/25/23 tablet,extended release Previous Rx's Medication Instructions Recorded albuterol sulfate 90 mcg/actuation 2 puff inhalation Q4H PRN 01/06/22 aerosol inhaler (Ventolin HFA) bronchospasm #6.7 grams donepezil 5 mg tablet 5 mg PO BEDTIME 30 days #30 tabs 01/06/22 olanzapine 2.5 mg tablet 2.5 mg PO BEDTIME 30 days #30 tabs 01/06/22 paliperidone palmitate 156 mg/mL 156 mg IM QMONTH #1 mL 01/06/22 intramuscular syringe (Invega Sustenna) trazodone 100 mg tablet 100 mg PO BEDTIME PRN Insomnia 30 01/06/22 days #30 tabs tamsulosin 0.4 mg capsule (Flomax) 0.4 mg PO BEDTIME #90 caps 06/13/22 levothyroxine 200 mcg tablet 200 mcg PO DAILY@30 90 days #90 04/24/23 tabs atorvastatin 40 mg tablet 40 mg PO BEDTIME #90 tabs 08/19/23 divalproex 250 mg tablet,delayed 250 mg PO BID #180 tabs 08/19/23 release finasteride 5 mg tablet 5 mg PO DAILY #90 tabs 08/19/23 losartan 50 mg tablet 50 mg PO DAILY 90 days #90 tabs 08/19/23 omeprazole 20 mg capsule,delayed 20 mg PO DAILY@0630 90 days #90 08/19/23 release caps docusate sodium 100 mg capsule 100 mg PO DAILY PRN constipation 11/17/23 (Colace) #10 caps polyethylene glycol 3350 17 17 g PO DAILY PRN constipation 11/17/23 gram/dose oral powder (Miralax) #119 grams tamsulosin 0.4 mg capsule 0.4 mg PO BEDTIME 3 weeks #21 caps 11/17/23 Allergies Allergy/AdvReac Type Severity Reaction Status Date / Time lisinopril [LISINOPRIL] Allergy Intermediate RASH Verified 11/17/23 09:39 Review of Systems 2 Review of Systems: Pertinent positives and negatives as stated in HPI [facility] Past Medical History Source: nursing notes reviewed Medical History Overweight (BMI 25.0-29.9) Hypothyroid Dementia Benign prostatic hyperplasia with urinary obstruction Obesity (BMI 30-39.9) Anxiety Insomnia Vitamin D deficiency Allergic rhinitis Osteoarthritis COPD (chronic obstructive pulmonary disease) Acquired hypothyroidism Benign essential hypertension Pure hypercholesterolemia Diabetes mellitus CAD (coronary artery disease) Constipation Abdominal pain, chronic, right lower quadrant GERD (gastroesophageal reflux disease) Surgical History History of esophagogastroduodenoscopy (EGD) Hx of colonoscopy History of colectomy History of excision of pilonidal cyst History of arthroscopic knee surgery History of skin graft History of cardiac catheterization History of eye surgery Family History Family History Father Stroke CVD (cerebrovascular disease) Mother Hypertension Social History Social History Household Members: None Housing: Apartment Do you presently have visiting nurse or other home services: Yes (Had [facility] ([facility]) and [facility]) Unable to assess alcohol history related to: Refusing to respond Alcohol intake: former Comment: PT on 15 minute checks Patient Tobacco Use Status: Former Tobacco user Quit Date: long time ago Tobacco use type: Cigarette and Cigar Years Smoked: unknown Smoked in Last 30 Days: No e-Cigarette/Vaping Use: Never Used Second Hand Smoke Exposure: No Use of substances other than those prescribed or required for medical reasons: No Advance Directives: Yes Advance Directives on File: Yes Advance Directives Date on File: 05/06/23 service: No Current occupational status: retired Sexual orientation: Straight/Heterosexual Cognitive needs: No Hearing needs: No Vision needs: No Physical Exam 2 Vital Signs: Vital Signs: Last Vital Signs Temp 98.1 F 11/18/23 16:34 Pulse 44 L 11/18/23 20:50 Resp 12 11/18/23 20:50 BP 177/86 H 11/18/23 20:50 Pulse Ox 97 11/18/23 20:50 O2 Del Method Room Air 11/18/23 20:50 BMI result Body Mass Index 30.1 VITAL SIGNS: Reviewed. GENERAL: Well nourished, in no acute distress. HEAD: Normocephalic/atraumatic EYES: PERRLA, EOMI EARS: Ext canals without abnormality NOSE: Nares patent bilateral OROPHARYNX: no oral lesions noted, posterior pharynx clear NECK: Supple, no adenopathy LUNGS: Normal breath sounds. No adventitious sounds or accessory muscle use. SpO2<96> CARDIOVASCULAR: Regular rate and rhythm without noted murmurs, no JVD or lower extremity edema. ABDOMEN: Soft, non-tender, non-distended with bowel sounds. MUSCULOSKELETAL: No tenderness, deformities, or effusions noted on gross inspection. EXTREMITIES: No cyanosis, clubbing or edema. SKIN: Inspection of the skin reveals no rashes NEUROLOGIC: Alert and oriented x 2. Strength and sensation to light touch were grossly intact x 4, cranial nerves 2-12 are grossly intact. Medical Decision Making Medical Decision Making MDM Narrative: 73-year-old male with history and clinical presentation, DDX: Infection, anemia, electrolyte abnormalities. Renteria catheter was completely removed as patient no longer wished to have it in place and had already dislodged it. Review of all investigations demonstrates a hematologic in to see without leukocytosis or left shift, there is no anemia but there is a chronically stable thrombocytopenia. Coagulation studies are within normal limits. Chemistry and do not demonstrate an DEBBIE and there is no evidence of electrolyte or liver enzyme derangements. EKG does not demonstrate any acute changes other than a noted bradycardia which is unchanged from prior and high sensitivity troponin is chronically stable without complaints of chest pain or palpitations. Patient was able to void and on post void residual assessment by bedside bladder scan there is residual 238 cc left in the bladder, however at this time will not pursue additional Renteria catheter as I suspect patient will likely attempt to pull the Renteria catheter out. Urinalysis from yesterday not indicating any urinary tract infection. Patient is somewhat altered and unclear if this may be a component of dementia versus underlying psychiatric decompensation. He is aware of self as well as current location however he does not know who the president is, and he also does not know what year it is. I have placed patient for case management and physical therapy evaluation, he is otherwise medically cleared for further assessment by case management and physical therapy. Patient is aware that he will be staying with us. Will get a medication reconciliation so that we get patient started on his prescribed tamsulosin that he was not taking home. Patient placed in physician observation because the patient needed more time for evaluation by the care team and physical therapy. At the time observation was started the patient's vital signs were stable, patient is alert and oriented, neuro: Nonfocal, CV RRR, lungs clear Differential Diagnosis Differential Diagnoses: The differential diagnosis associated with the presentation includes Please see the discussion above Admission/Observation Consideration of admission/observation: Escalation of care including admission/observation considered Please see the discussion above Consult Healthcare Provider Management of the patient was discussed with: Wardrobe Consultant Please see the discussion above Lab Data MDM Lab Attestation statement: I reviewed the patient's lab results. Please see this discussion above 11/18/23 18:13 11/18/23 18:20 Labs: Lab Results 11/18/23 11/18/23 Range/Units 18:13 18:20 WBC 5.6 (4.8-10.8) X10*3/uL RBC 5.01 (4.60-5.80) X10*6/uL Hgb 15.0 (14.0-18.0) g/dl Hct 44.2 (42.0-52.0) % MCV 88.2 (80.0-98.0) fL MCH 29.9 (27.0-33.0) pg MCHC 33.9 (31.0-36.0) g/dl RDW 14.9 (11.0-16.0) % Plt Count 159 L (160-400) X10*3/uL MPV 10.8 (9.4-12.4) fL Immature Gran % (Auto) 0.2 (0.0-0.4) % Neut % (Auto) 66.6 (45-73) % Lymph % (Auto) 21.0 (20-40) % Pitkin % (Auto) 8.5 (2-11) % Eos % (Auto) 3.2 (0-4) % Baso % (Auto) 0.5 (0-2) % Lymph # (Auto) 1.2 (1.2-4.9) X10*3/uL Pitkin # (Auto) 0.5 (0.1-1.2) X10*3/uL Eos # (Auto) 0.2 (0.0-0.4) X10*3/uL Baso # (Auto) 0.0 (0.0-0.2) X10*3/uL Abs Immat Gran (auto) 0.01 (0.00-0.03) X10*3/uL Absolute Neuts (auto) 3.7 (2.0-8.3) x10*3/uL Absolute Nucleated RBC 0.000 (0.0-0.012) X10*3/uL Nucleated RBC % (auto) 0.0 (0.0-0.2) /100WBC Smear Tech's Comments VERIFIED PT 11.6 (11.1-13.3) SEC INR 1.0 (0.9-1.1) Sodium 142 (135-145) mmol/L Potassium 4.2 (3.3-5.1) mmol/L Chloride 106 (96-108) mmol/L Carbon Dioxide 30 H (22-29) mmol/L Anion Gap 10 L (12-20) BUN 24 H (9-16) mg/dL Creatinine 1.11 (0.5-1.4) mg/dL Estim Creat Clear Calc 65.6 Estimated GFR > 60 Random Glucose 109 (60-115) mg/dL Calcium 9.0 (8.4-10.2) mg/dL Total Bilirubin 0.5 (0.0-1.0) mg/dL AST 51 H (5-37) U/L ALT 39 (0-40) U/L Alkaline Phosphatase 54 (39-117) U/L Troponin I High Sens 9.1 D (<3.5-35.0) ng/L Total Protein 6.7 (6.5-8.0) g/dL Albumin 3.5 (3.5-5.0) g/dL Independent Interpretation I performed an independent interpretation of an: EKG Interpretation: Bradycardia, HR -41, LBBB at baseline, no STEMI, SD/QTC are within normal limits, no acute changes when compared to 06/2023. External Record Review External record reviewed: Outpatient record, Prior outpatient labs and Prior outpatient radiology Chronic Conditions Patient?s care impacted by: Hypertension Critical Care Time Critical Care Time Critical Care Time: Yes Total Critical Care Time: 60 Attestation: I personally attest to this time spent taking care of the patient. Discharge Plan Discharge Clinical Impression: Benign prostatic hyperplasia, Memory changes Patient Disposition: Still a Patient Prescriptions: No Action levothyroxine 200 mcg tablet 200 mcg PO DAILY@0630 90 Days Qty: 90 0RF atorvastatin 40 mg tablet 40 mg PO BEDTIME Qty: 90 0RF finasteride 5 mg tablet 5 mg PO DAILY Qty: 90 2RF losartan 50 mg tablet 50 mg PO DAILY 90 Days Qty: 90 0RF Protocol: Hold for SBP< HOLD for SBP < : 90 omeprazole 20 mg capsule,delayed release(DR/EC) 20 mg PO DAILY@0630 90 Days Qty: 90 0RF divalproex 250 mg tablet,delayed release (DR/EC) 250 mg PO BID Qty: 180 0RF albuterol sulfate [Ventolin HFA] 90 mcg/actuation Hfa Aerosol Inhaler 2 puff inhalation Q4H PRN (Reason: bronchospasm) Qty: 6.7 0RF donepezil 5 mg Tablet 5 mg PO BEDTIME 30 Days Qty: 30 0RF olanzapine 2.5 mg Tablet 2.5 mg PO BEDTIME 30 Days Qty: 30 0RF trazodone 100 mg Tablet 100 mg PO BEDTIME PRN (Reason: Insomnia) 30 Days Qty: 30 0RF Invega Sustenna 156 mg/mL syringe 156 mg IM QMONTH Qty: 1 0RF Rx Instructions: LAST DOSE ON 04/27/23 dicyclomine 20 mg Tablet 20 mg PO TID PRN (Reason: Gastrointestinal Spasms Or Cramping) pramipexole 0.125 mg Tablet 0.125 mg PO TID ibuprofen 600 mg Tablet 600 mg PO Q6H PRN (Reason: Pain) fluticasone propionate 50 mcg/actuation [place],Suspension 1 spray INTRANASAL BID Rx Instructions: administer into each nostril tamsulosin [Flomax] 0.4 mg capsule 0.4 mg PO BEDTIME Qty: 90 2RF albuterol sulfate 2.5 mg /3 mL (0.083 %) Solution For Nebulization 2.5 mg INHALATION Q4H PRN (Reason: Shortness Of Breath) furosemide 20 mg Tablet 20 mg PO DAILY potassium chloride 20 mEq Tablet Extended Release 20 meq PO DAILY polyethylene glycol 3350 [Miralax] 17 gram/dose powder 17 g PO DAILY PRN (Reason: constipation) Qty: 119 0RF docusate sodium [Colace] 100 mg capsule 100 mg PO DAILY PRN (Reason: constipation) Qty: 10 0RF tamsulosin 0.4 mg capsule 0.4 mg PO BEDTIME 21 Days Qty: 21 0RF
[2023-11-18 17:23] VITALS: BP 171/88; PULSE 42; RESP 14; O2SAT 96
--- NOTE | 2023-11-18 17:29 | PC.NURSE ---
pt continues to be bradycardic on the bedside monitor at 42. MD aware.
--- NOTE | 2023-11-18 17:55 | ECG_ITS ---
Test Reason : BRADYCARDIA Blood Pressure : / mmHG Vent. Rate : 041 BPM Atrial Rate : 041 BPM P-R Int : 200 ms QRS Dur : 156 ms QT Int : 558 ms P-R-T Axes : 052 -07 186 degrees QTc Int : 460 ms Marked sinus bradycardia with Premature atrial complexes Left bundle branch block Abnormal ECG When compared with ECG of 23-JUN-2023 11:02, Sinus rhythm has replaced Atrial fibrillation Vent. rate has decreased BY 23 BPM Referred By: Mary Iraheta Electronically Signed By:DANDY MAYA MD
--- NOTE | 2023-11-18 18:21 | PC.NURSE ---
IV established in left AC 20G. labs sent.
[2023-11-18 18:24] LABS: Prothrombin Time 11.6 SEC (11.1-13.3)
[2023-11-18 18:31] LABS: PLT CLUMP 1; SCAN SMEAR FLAG 1
[2023-11-18 18:33] LABS: Basophils Percent Auto 0.5 % (0-2); Eosinophils Absolute Auto 0.2 X10*3/uL (0.0-0.4); Eosinophils Percent Auto 3.2 % (0-4); Hematocrit 44.2 % (42.0-52.0); Imm Gran Abs Auto 0.01 X10*3/uL (0.00-0.03); Imm Gran Pct Auto 0.2 % (0.0-0.4); Lymphocytes Absolute Auto 1.2 X10*3/uL (1.2-4.9); MANUAL DIFF FLAG SCAN; Mean Corpuscular HGB Conc 33.9 g/dl (31.0-36.0); Mean Corpuscular Hemoglobin 29.9 pg (27.0-33.0); Mean Corpuscular Volume 88.2 fL (80.0-98.0); Mean Platelet Volume 10.8 fL (9.4-12.4); Monocytes Absolute Auto 0.5 X10*3/uL (0.1-1.2); Monocytes Percent Auto 8.5 % (2-11); Neutrophils Absolute Auto 3.7 x10*3/uL (2.0-8.3); Neutrophils Percent Auto 66.6 % (45-73); Red Blood Count 5.01 X10*6/uL (4.60-5.80); Red Cell Distribution Width 14.9 % (11.0-16.0)
--- NOTE | 2023-11-18 18:33 | PC.NURSE ---
pts son called- Gabriela, asks that we call her when he is getting discharged [phone]
[2023-11-18 18:44] LABS: Alanine Aminotransferase 39 U/L (0-40); Albumin Level 3.5 g/dL (3.5-5.0); Alkaline Phosphatase 54 U/L (39-117); Anion Gap 10 (12-20); Aspartate Amino Transferase 51 U/L (5-37); Bilirubin Total 0.5 mg/dL (0.0-1.0); Blood Urea Nitrogen 24 mg/dL (9-16); Carbon Dioxide 30 mmol/L (22-29); Chloride 106 mmol/L (96-108); Creatinine Clr Calc Pharmacy 65.6; Estimated Glomerular Filt Rate > 60; Glucose Random 109 mg/dL (60-115); Potassium 4.2 mmol/L (3.3-5.1); Sodium 142 mmol/L (135-145); Total Protein 6.7 g/dL (6.5-8.0)
[2023-11-18 18:50] LABS: Platelet Count 159 X10*3/uL (160-400); White Blood Count 5.6 X10*3/uL (4.8-10.8)
[2023-11-18 18:51] LABS: SLIDE REVIEW VERIFIED
[2023-11-18 18:57] LABS: Troponin-I High Sensitivity 9.1 ng/L (<3.5-35.0)
[2023-11-18 20:50] VITALS: BP 177/86; PULSE 44; RESP 12; O2SAT 97
[2023-11-19 00:30] VITALS: BP 194/101; PULSE 62; RESP 20; O2SAT 97
[2023-11-19 02:55] VITALS: BP 167/86; PULSE 45; RESP 16; TEMP 37.1; O2SAT 96
[2023-11-19 05:23] VITALS: BP 188/88; PULSE 50; RESP 18; TEMP 36.4; O2SAT 97
[2023-11-19] MEDS: Losartan Potassium 50 MG TABLET PO (05:43)
--- NOTE | 2023-11-19 05:58 | PC.NURSE ---
[facility] Patient is alert and oriented to self and place at this time, able to make needs known. Patient able to ambulate to bathroom with standby assistance. Blood pressure noted to be elevated, Dr Aden aware and ordered dose of Losartan. Unable to complete med rec at this time as patient is unsure what he takes at home.
[2023-11-19 07:17] VITALS: BP 170/80; PULSE 46; RESP 17; TEMP 36.1; O2SAT 96
--- NOTE | 2023-11-19 09:22 | MHC.CARE ---
Pt was seen and cleared by CARE team, pt referred to hospital case management.
[2023-11-19 09:40] LABS: COVID-19 Test Negative (Negative); IDNOW Serial# 152EDE1D
--- NOTE | 2023-11-19 10:56 | PC.NURSE ---
ambulates in [place] to bathroom, no voiding. cooperative. no complaints of discomfort in abdomen. po fluids encouraged
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
--- NOTE | 2023-11-19 12:37 | PC.NURSE ---
pt not interested in rehab, states he has enough help at home. mother is willing to get him and will be here shortly, pt states he ambulates independently and does not use a walker or cane, ate lunch, no complaints
[2023-11-19 14:00] VITALS: BP 139/63; PULSE 48; RESP 18; TEMP 36.1; O2SAT 93
--- NOTE | 2023-11-23 07:02 | MHC.CM.ED ---
Received notification that patient lost his insurance from [facility]. They will not be able to accept patient. Will refer to [facility] financial counseling.
== END 2023-11-19 14:25 | disposition home or self-care (01) ==
PROVIDERS: Physician Assistant Medical; Emergency Provider Student in an Organized Health Care Education/Training Program; PCP Internal Medicine
DX: N40.0 Benign prostatic hyperplasia without lower urinary tract symptoms (principal); F03.90 Unspecified dementia, unspecified severity, without behavioral disturbance, psychotic disturbance, mood disturbance, and anxiety; R00.1 Bradycardia, unspecified; G21.9 Secondary parkinsonism, unspecified; I10 Essential (primary) hypertension; E78.00 Pure hypercholesterolemia, unspecified; Z79.02 Long term (current) use of antithrombotics/antiplatelets; Z79.899 Other long term (current) drug therapy; Z11.52 Encounter for screening for COVID-19
CPT/HCPCS: 36415; 80053; 84484; 85025; 85610; 87635; 93005; 97162; 99285; S9485

== ENCOUNTER → 2023-11-18 17:55 | Outpatient (BNV) | payer MEDICARE, SELFPAY | PROVIDERS: Emergency Provider Student in an Organized Health Care Education/Training Program; Visit Provider Internal Medicine Cardiovascular Disease | DX: I49.1 Atrial premature depolarization (principal); R94.31 Abnormal electrocardiogram [ECG] [EKG] | CPT/HCPCS: 93010 ==

== ENCOUNTER 2023-12-04 14:30 | Outpatient (AMB) | payer MEDICARE, MEDICAID, SELFPAY ==
--- NOTE | 2023-12-04 14:53 | MHC.OFFWIV ---
Intake Vital Signs 12/04/23 14:57 Height 5 ft 9 in Weight 209 lb BMI 30.9 BP 140/80 H Blood Pressure Location Lt brachial Position Sitting Temp 97.4 F Intake Visit Reasons: EP [place] eye Intake Note: pt is here today for pink eye started 2 weeks ago Patient Tobacco Use Status: Former Tobacco user Quit Date: long time ago Allergies lisinopril [LISINOPRIL] Allergy (Intermediate, Verified 12/04/23 14:54) RASH Do you need a note to return to daycare/school/sports/work: No HPI HPI Comments History of Present Illness Details This is a 73-year-old male who presents to the walk-in clinic today complaining of itching/irritation and crusting of his right eye for the past 2 weeks. He denies any visual disturbances. He is otherwise feeling well without nasal/sinus congestion, rhinorrhea, headaches, fever/chills, chest pain, shortness of breath, abdominal pain, nausea/vomiting/diarrhea. PFSH Medical History Overweight (BMI 25.0-29.9) Hypothyroid Dementia Benign prostatic hyperplasia with urinary obstruction Obesity (BMI 30-39.9) Anxiety Insomnia Vitamin D deficiency Allergic rhinitis Osteoarthritis COPD (chronic obstructive pulmonary disease) Acquired hypothyroidism Benign essential hypertension Pure hypercholesterolemia Diabetes mellitus CAD (coronary artery disease) Constipation Abdominal pain, chronic, right lower quadrant GERD (gastroesophageal reflux disease) Surgical History History of esophagogastroduodenoscopy (EGD) Hx of colonoscopy History of colectomy History of excision of pilonidal cyst History of arthroscopic knee surgery History of skin graft History of cardiac catheterization History of eye surgery Family History Father Stroke CVD (cerebrovascular disease) Mother Hypertension Social History Household Members: None Housing: Apartment Do you presently have visiting nurse or other home services: Yes (Had [facility] ([facility]) and [facility]) Unable to assess alcohol history related to: Refusing to respond Alcohol intake: former Comment: PT on 15 minute checks Patient Tobacco Use Status: Former Tobacco user Quit Date: long time ago Tobacco use type: Cigarette and Cigar Years Smoked: unknown e-Cigarette/Vaping Use: Never Used Second Hand Smoke Exposure: No Advance Directives Date on File: 05/06/23 service: No Current occupational status: retired Sexual orientation: Straight/Heterosexual Cognitive needs: No Hearing needs: No Vision needs: No Review of Systems Const All systems reviewed & are unremarkable except as noted in HPI and below Reports no additional complaints Eyes Reports no additional complaints ENT Reports no additional complaints Card Reports no additional complaints Resp Reports no additional complaints GI Reports no additional complaints Reports no additional complaints Musc Reports no additional complaints Skin/Breast Reports system reviewed and no additional complaints, except as documented Neuro Reports no additional complaints Psych Reports no additional complaints Endo Reports no additional complaints Donte/Lymph Reports no additional complaints Aller/Immun Reports no additional complaints Physical Exam Const Other: Vital signs reviewed. Constitutional: Non-toxic appearing. No acute distress. Well-developed and well-nourished. HEENT: Normocephalic and atraumatic. Mild right conjunctival injection with crusting of the right upper and lower eyelids. Skin: Warm and dry. No rashes or lesions noted. Neck: Full and painless range of motion. No cervical lymphadenopathy. Cardio: Regular rate and rhythm. No lower extremity edema. No JVD. Pulmonary: No respiratory distress. No accessory muscle usage. Gastrointestinal: Soft, nontender, and nondistended in all 4 quadrants. Musculoskeletal: Normal range of motion in joints throughout the body. No deformity or other signs of injury. Neuro: Alert and oriented x4. Cranial nerves 2-12 grossly intact. No focal deficits appreciated. Psych: Normal mood and affect. Assessment & Plan Assessment & Plan (1) Bacterial conjunctivitis of right eye: Code(s): H10.9 - Unspecified conjunctivitis Plan: This is a 73-year-old male who presented to the walk-in clinic complaining of right eye irritation/itching/redness and crusting. History and physical most consistent with acute bacterial conjunctivitis of the right eye. Patient was given a prescription for ofloxacin eyedrops 4 times daily as he can not tolerate erythromycin ophthalmic ointment according to his mother. Patient was advised to practice good hand hygiene. Patient was advised to follow-up here or proceed to the emergency room if he were to develop persistent or worsening symptoms. Patient and his mother verbalized her understanding and they are in agreement with the plan. Medications: New ofloxacin 0.3% 1 drp ophthalmic (eye) QID 10 mL 0RF Coding Level of Care Code Est Pt Level 3 (92431) Diagnoses Bacterial conjunctivitis of right eye H10.9
[2023-12-04 14:57] VITALS: BP 140/80; TEMP 36.3; BMI 30.9
== END 2023-12-04 15:19 | disposition home or self-care (01) ==
PROVIDERS: PCP Internal Medicine; Visit Provider Physician Assistant Medical
DX: H10.9 Unspecified conjunctivitis (principal)
CPT/HCPCS: 99213

== ENCOUNTER 2023-12-30 09:37 | Outpatient (AMB) | payer MEDICARE, MEDICAID, SELFPAY ==
[2023-12-30 09:40] VITALS: BP 122/80; PULSE 55; O2SAT 96; BMI 31.6
--- NOTE | 2023-12-30 09:40 | MHC.PC.OV ---
Vital Signs 12/30/23 09:40 Height 5 ft 9 in Weight 214 lb 2 oz BMI 31.6 BP 122/80 Blood Pressure Location Lt brachial Position Sitting Pulse 55 Pulse Source Pulse Oximeter Pulse Oximetry (%) 96 Oxygen Delivery Method Room Air Intake Visit Reasons: medication follow up Crater And Packer Required: No Accompanied by: Self / Same As Patient Allergies lisinopril [LISINOPRIL] Allergy (Intermediate, Verified 12/30/23 10:04) RASH Medication List - Last Reconciled 12/30/23 by Samuel Schneider MD atorvastatin 40 mg PO BEDTIME docusate sodium (Colace) 100 mg PO DAILY PRN donepezil 5 mg PO BEDTIME 30 days finasteride 5 mg PO DAILY fluticasone propionate 50 mcg/actuation 1 spray intranasal BID furosemide 20 mg PO DAILY ibuprofen 600 mg PO Q6H PRN levothyroxine 200 mcg PO DAILY@0630 90 days losartan 50 mg See Protocol PO DAILY 90 days olanzapine 2.5 mg PO BEDTIME 30 days omeprazole 20 mg PO DAILY@0630 90 days paliperidone palmitate (Invega Sustenna) 156 mg IM QMONTH polyethylene glycol 3350 (Miralax) 17 grams PO DAILY PRN potassium chloride ER 20 mEq PO DAILY pramipexole 0.125 mg PO TID tamsulosin 0.4 mg PO BEDTIME 3 weeks trazodone 100 mg PO BEDTIME PRN 30 days Tobacco use date assessed: 12/30/23 Fall risk assessment: No Falls in past year Last assessed Fall Risk: 12/30/23 Dental Screening Dental Screen Date: 12/30/23 Did you have a dental visit in the last 12 months?: No Did you have a dental problem in the last 6 months where you did not have access to dental care?: No Was dental information given to patient?: No HPI medication follow up HPI Details Patient comes in today for his follow up visit - is as usual, accompanied by his mother although his mother is hard of hearing and appears just as confused / inconsistent as patient with their information Patient (and his mother) both indicated that he has not been taking ANY of his meds since so that means that for the past 3 months or so (if this is true), he has not taken his thyroid Rx and BP med as well He was getting VNA services through [facility] for a while but they ultimately had to discharge him in late September 2023 for non-compliance with both his nursing visits (as he has reportedly been refusing to let them in when they arrive) as well as with his medications Nursing notes indicate that patient's psychiatrist is aware of his refusal to take his meds as well Patient states that he currently feels okay and the reason he is not taking his meds is that he does not believe he needs to take them States that he was feeling very weak for a while but is now starting to get his strength back He is still noted to be walking in a very slow and shuffling gait and appears fatigued and somewhat pale today He denies any headaches or dizziness - recalls feeling dizzy for a while but states that has subsided as well He denies any chest pains, no SOB No nausea/vomiting, no abdominal pain No change in bowel habits noted [facility] Medical History Overweight (BMI 25.0-29.9) Hypothyroid Dementia Benign prostatic hyperplasia with urinary obstruction Obesity (BMI 30-39.9) Anxiety Insomnia Vitamin D deficiency Allergic rhinitis Osteoarthritis COPD (chronic obstructive pulmonary disease) Acquired hypothyroidism Benign essential hypertension Pure hypercholesterolemia Diabetes mellitus CAD (coronary artery disease) Constipation Abdominal pain, chronic, right lower quadrant GERD (gastroesophageal reflux disease) Surgical History History of esophagogastroduodenoscopy (EGD) Hx of colonoscopy History of colectomy History of excision of pilonidal cyst History of arthroscopic knee surgery History of skin graft History of cardiac catheterization History of eye surgery Family History Father Stroke CVD (cerebrovascular disease) Mother Hypertension Social History Household Members: None Housing: Apartment Do you presently have visiting nurse or other home services: Yes (Had Sunil Case (VNA Services) and [facility]) Unable to assess alcohol history related to: Refusing to respond Alcohol intake: former Comment: PT on 15 minute checks Patient Tobacco Use Status: Former Tobacco user Quit Date: long time ago Tobacco use type: Cigarette and Cigar Years Smoked: unknown e-Cigarette/Vaping Use: Never Used Second Hand Smoke Exposure: No Advance Directives Date on File: 05/06/23 service: No Current occupational status: retired Sexual orientation: Straight/Heterosexual Cognitive needs: No Hearing needs: No Vision needs: No Questionnaire PHQ-9 Over the last 2 weeks, how often have you been bothered by any of the following problems? 1. Little interest or pleasure in doing things: not at all 2. Feeling down, depressed, or hopeless: not at all 3. Trouble falling or staying asleep, or sleeping too much: not at all 4. Feeling tired or having little energy: not at all 5. Poor appetite or overeating: not at all 6. Feeling bad about yourself - or that you are a failure or have let yourself or your family down: not at all 7. Trouble concentrating on things, such as reading the newspaper or watching television: not at all 8. Moving or speaking so slowly that other people could have noticed. Or the opposite - being so fidgety or restless that you have been moving around a lot more than usual: not at all 9. Thoughts that you would be better off or of hurting yourself in some way: not at all Total score: 0 Depression Screening Interpretation: Positive Depression Screening Follow-up: Existing condition and Declines treatment (has NOT been compliant with his meds) Depression Screening Done: Yes 96402 - PHQ-9 Billing: Yes Source: Developed by Drs. Michael Melendez, Christina Lopes, Arturo Witt and colleagues, with an educational amanda from [employer]. Thrive Questionnaire Date Thrive assessed: 12/30/23 I am a: Patient What is your living situation today?: I have a steady place to live Within the past 12 months, did the food you bought not last and you didn't have the money to get more?: Never true Within the past 12 months, did you worry whether your food would run out before you got money to buy more?: Never true Do you have trouble paying for medicines?: No Do you have trouble getting transportation to medical appointments?: No Do you have trouble paying your heating and electricity bill?: No Do you have trouble taking care of your child, family member or friend?: No Do you have trouble with day-to-day activities such as bathing, preparing meals, shopping, managing finances, etc.?: No Are you currently unemployed and looking for a job?: No Are you interested in more education?: No Please select the resources that you would like help with: None Currently or been in a relationship where the following occur: no concerns reported THRIVE Score: 0 AUDIT C Alcohol Use Questionnaire (AUDIT-C) 1. How often do you have a drink containing alcohol?: Monthly or less 2. How many drinks containing alcohol do you have on a typical day when you are drinking?: 1 or 2 3. How often do you have six or more drinks on one occasion?: Never Total Score: 1 Score Reviewed/Action Taken: Yes MARI-7 AMB Questionnaire MARI-7 Date MARI - 7 assessed: 12/30/23 Feeling nervous, anxious, or on edge: 0 = Not at all Not being able to stop or control worryin = Not at all Worrying too much about different things: 0 = Not at all Trouble relaxin = Not at all Being so restless that it is hard to sit still: 0 = Not at all Becoming easily annoyed or irritable: 0 = Not at all Feeling afraid as if something awful might happen: 0 = Not at all Total MARI-7 score (0-4 normal; 5-9 mild; 10-14 moderate; 15-21 severe): 0 Source: Developed by Drs. Michael Melendez, Christina Lopes, Arturo Witt and colleagues, with an educational amanda from [employer]. Review of Systems Const Denies chills, Reports fatigue, Denies fever(s) and Denies headache(s) ENT Denies dysphagia, Denies dizziness (recently but not currently), Denies otalgia, Denies headache(s), Denies neck pain, Denies odynophagia and Denies sore throat Card Denies chest pain, Denies rapid heart rate, Denies irregular heart rhythm, Denies palpitations and Denies dyspnea Resp Denies chest congestion, Denies cough, Denies dyspnea and Denies wheezing GI Denies abdominal pain, Denies constipation, Denies dysphagia, Denies heartburn, Denies diarrhea, Denies nausea, Denies odynophagia and Denies vomiting Denies hematuria, Denies difficulty urinating, Denies dysuria, Denies urinary frequency and Denies urinary urgency Musc Reports abnormal gait (unsteady), Denies back pain, Denies arthralgias, Denies neck pain and Reports stiffness Skin/Breast Denies rash Neuro Reports abnormal gait (unsteady), Denies dizziness (recently but not currently), Denies headache(s) and Denies paresthesias Endo Reports fatigue and Denies palpitations Aller/Immun Denies wheezing Physical exam (Primary Care) Vital Signs: Last Vital Signs Pulse 55 12/30/23 09:40 BP 122/80 12/30/23 09:40 Pulse Ox 96 12/30/23 09:40 Oxygen Delivery Method Room Air 12/30/23 09:40 BMI result Body Mass Index 31.6 Tobacco/Smoking Status: Tobacco use Status Tobacco use date assessed 12/30/23 12/30/23 09:46 Patient Tobacco Use Status Former Tobacco user 12/30/23 09:46 Tobacco use type Cigarette,Cigar 12/30/23 09:46 e-Cigarette/Vaping Use Never Used 12/30/23 09:46 PHQ-9: PHQ-9 Score PHQ-9: Total score 0 12/30/23 10:30 Depression Screening Interpretation: Positive Depression Screening Follow-up: Existing condition and Declines treatment (has NOT been compliant with his meds) Thrive Assessment: Date of Thrive Assessment Date Thrive assessed 12/30/23 12/30/23 09:46 Currently or been in a relationship where the following occur: no concerns reported Const General: no acute distress and alert HENMT Ears: TM's normal bilaterally and EAC's normal Throat: Yes posterior oropharynx normal and Yes tonsils normal (no TP congestion) Neck Neck: Yes no lymphadenopathy and Yes supple Thyroid: Thyroid normal Resp Auscultation: clear to auscultation bilaterally, no rales and no wheezes Cardio Rate: regular rate Rhythm: regular rhythm Heart sounds: no murmurs GI Palpation (GI): Soft to palpation and nontender Auscultation: normal bowel sounds General: Yes no CVA tenderness Back/Spine/Pelvis Back: no CVA tenderness Skin Rashes: no rashes Neuro Gait exam (Neuro): Shuffling gait present Extrem General: Yes no clubbing, cyanosis or edema Psych Judgement: Poor judgement present (Psych) (refusing to take all meds - feels he does not need them ) Assessment and Plan Assessment & Plan (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, unspecified Qualifiers: Secondary Parkinsonism type: other drug-induced Qualified Code(s): 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 Plan: Patient was previously diagnosed with mild to moderate Parkinsonism, likely related to his exposure to unspecified antipsychotic medications and worsened with underlying dementia and cerebral degeneration back in December 2021 He was started on Benztropine 0.5 mg BID and was also recommended to try Carbidopa-Levodopa 25/100 mg TID to see if that will help with his ambulation but he never followed up with neurology again He was on Trihexyphenidyl 2 mg BID but admits that he stopped taking all of his meds for the past 2 to 3 months (see HPI) They (patient and his mother) previoulsy requested for a referral to a different neurologist as he does not want to go back to Dr. Hall - he was referred to Dr. Jefferson previously and now is scheduled to be seen by her next month (January 2024) (2) Dementia: Code(s): F03.90 - Unspecified dementia, unspecified severity, without behavioral disturbance, psychotic disturbance, mood disturbance, and anxiety Qualifiers: Dementia type: unspecified type Dementia severity: unspecified severity Dementia behavioral or psychological symptom: unspecified whether behavioral, psychotic, or mood disturbance or anxiety Qualified Code(s): F03.90 - Unspecified dementia, unspecified severity, without behavioral disturbance, psychotic disturbance, mood disturbance, and anxiety Plan: Was on Donepezil 5 mg QD but patient self-discontinued his meds a couple of months ago Was referred again to neurology for further evaluation and management - is scheduled to be seen in January 2024 (3) Pure hypercholesterolemia: Code(s): E78.00 - Pure hypercholesterolemia, unspecified Plan: Reinforced low cholesterol diet Is supposed to be on Atorvastatin 40 mg QD but patient stopped taking all of his meds a couple of months ago Will have him get his fasting lipid profile and labs rechecked NAUN (4) CAD (coronary artery disease): Code(s): I25.10 - Atherosclerotic heart disease of [place] coronary artery without angina pectoris Qualifiers: Coronary Disease-Associated Artery/Lesion type: [place] artery [place] vs. transplanted heart: [place] heart Associated angina: without angina Qualified Code(s): I25.10 - Atherosclerotic heart disease of [place] coronary artery without angina pectoris Plan: Cardiac catheterization done at [facility] in 2019 reportedly came back normal Follow up with Cardiology as scheduled (5) Benign essential hypertension: Code(s): I10 - Essential (primary) hypertension Plan: Reinforced low-sodium diet -?goal is systolic BP of at least 130 mm or less Patient quit taking his Losartan 50 mg QD a couple of months ago (6) Diabetes mellitus: Code(s): E11.9 - Type 2 diabetes mellitus without complications Qualifiers: Diabetes mellitus type: type 2 Diabetes mellitus alf insulin use: without terminal gauger supervisor use Diabetes mellitus complication status: without complication Qualified Code(s): E11.9 - Type 2 diabetes mellitus without complications Plan: HgbA1c was normal at 5.0% when last checked in June 2023 Reinforced diabetic diet - diabetes appears corrected/controlled currently and no Rx has been required/prescribed for patient over the past couple of years so it is likely his high blood sugar before was related to some of his psych meds (7) Acquired hypothyroidism: Code(s): E03.9 - Hypothyroidism, unspecified Plan: Will recheck his TFTs NAUN for follow up He was supposed to be on Synthroid 200 mcg QD but he also self-discontinued this a couple of months ago Patient is advised that a lot of his recent symptoms, including his unsteady gait, may likely be due to his poorly-controlled thyroid issue and poor compliance with his Rx (8) GERD (gastroesophageal reflux disease): Code(s): K21.9 - Gastro-esophageal reflux disease without esophagitis Qualifiers: Esophagitis presence: without esophagitis Qualified Code(s): K21.9 - Gastro-esophageal reflux disease without esophagitis Plan: Dietary restrictions reinforced He also stopped taking Omeprazole 20 mg QD a few months ago (9) Constipation: Code(s): K59.00 - Constipation, unspecified Qualifiers: Constipation type: unspecified constipation type Qualified Code(s): K59.00 - Constipation, unspecified Plan: Encouraged again on increased oral fluids and dietary fiber Was on MiraLax 17 g once a day and Senna 8.6 mg 2 tablets daily at bedtime as needed but did not feel he needed to continue taking them and stopped these a few months ago States that he's had no problems with his bowel movements since (10) Osteoarthritis: Code(s): M19.90 - Unspecified osteoarthritis, unspecified site Qualifiers: Osteoarthritis location: unspecified site Osteoarthritis type: primary Qualified Code(s): M19.91 - Primary osteoarthritis, unspecified site Plan: Was taking Tramadol 50 mg 3 times a day as needed for pain previously but this also has not been prescribed for a while now (11) Benign prostatic hyperplasia with urinary obstruction: Code(s): N40.1 - Benign prostatic hyperplasia with lower urinary tract symptoms; N13.8 - Other obstructive and reflux uropathy Plan: Patient also stopped taking his Finasteride 5 mg QD and Tamsulosin 0.4 mg QD a few months ago Follow up with urology as scheduled (12) Insomnia: Code(s): G47.00 - Insomnia, unspecified Qualifiers: Insomnia type: unspecified Qualified Code(s): G47.00 - Insomnia, unspecified Plan: Sleep hygiene reinforced (13) Bipolar affective, manic, severe w/ psych: Code(s): F31.2 - Bipolar disorder, current episode manic severe with psychotic features Plan: He was supposed to be on Olanzapine 2.5 mg Q HS, Depakote ER 250 mg BID and Invega Sustenna 156 mg IM once a month but patient stopped all these as he feels that he has been overmedicated for years and does NOT need any medications at this time Follow-up with Psychiatry as scheduled - psychiatry is reportedly aware of patient's non-compliance with his meds (14) Overweight (BMI 25.0-29.9): Code(s): E66.3 - Overweight Plan: Reinforced diet; exercise is unrealistic given patient's Parkinson's disease and comorbidities Plan Follow up in 3 months Orders: Orders Thyroid Stimulating Hormone Today E03.9 - Hypothyroidism, unspecified UA CC w/rflx Micro + Cult Today R30.0 - Dysuria Vitamin B12 and Folate Today E53.8 - Deficiency of other specified B group vitamins Hemoglobin A1c Today E11.9 - Type 2 diabetes mellitus without complications B Type Natriuretic Peptide Today I42.9 - Cardiomyopathy, unspecified, I50.9 - Heart failure, unspecified Complete Blood Count Auto Diff Today D64.9 - Anemia, unspecified Comprehensive [place]. Panel Fast Today E78.00 - Pure hypercholesterolemia, unspecified Lipid Panel Today E78.00 - Pure hypercholesterolemia, unspecified Free T4 (Free Thyroxine) Today E03.9 - Hypothyroidism, unspecified Vitamin D 25-OH Total Today E55.9 - Vitamin D deficiency, unspecified Microalbumin, Random (w Creat) Today E11.9 - Type 2 diabetes mellitus without complications Coding Level of Care Code Est Pt Level 4 (01693) Diagnoses Other drug-induced secondary parkinsonism G21.19 Secondary Parkinsonism type: other drug-induced Dementia, unspecified dementia severity, unspecified dementia type, unspecified whether behavioral, psychotic, or mood disturbance or anxiety F03.90 Dementia type: unspecified type Dementia severity: unspecified severity Dementia behavioral or psychological symptom: unspecified whether behavioral, psychotic, or mood disturbance or anxiety Pure hypercholesterolemia E78.00 Coronary artery disease involving [place] coronary artery of [place] heart without angina pectoris I25.10 Coronary Disease-Associated Artery/Lesion type: [place] artery [place] vs. transplanted heart: [place] heart Associated angina: without angina Benign essential hypertension I10 Type 2 diabetes mellitus without complication, without long-term current use of insulin E11.9 Diabetes mellitus type: type 2 Diabetes mellitus terminal gauger supervisor insulin use: without alf use Diabetes mellitus complication status: without complication Acquired hypothyroidism E03.9 Gastroesophageal reflux disease without esophagitis K21.9 Esophagitis presence: without esophagitis Constipation, unspecified constipation type K59.00 Constipation type: unspecified constipation type Primary osteoarthritis, unspecified site M19.91 Osteoarthritis location: unspecified site Osteoarthritis type: primary Benign prostatic hyperplasia with urinary obstruction N40.1; N13.8 Insomnia, unspecified type G47.00 Insomnia type: unspecified Bipolar affective, manic, severe w/ psych F31.2 Overweight (BMI 25.0-29.9) E66.3
== END 2023-12-30 10:21 | disposition home or self-care (01) ==
PROVIDERS: PCP Internal Medicine; Visit Provider Internal Medicine
DX: G21.19 Other drug induced secondary parkinsonism (principal); F03.90 Unspecified dementia, unspecified severity, without behavioral disturbance, psychotic disturbance, mood disturbance, and anxiety; E78.00 Pure hypercholesterolemia, unspecified; I25.10 Atherosclerotic heart disease of native coronary artery without angina pectoris; I10 Essential (primary) hypertension; E03.9 Hypothyroidism, unspecified; K21.9 Gastro-esophageal reflux disease without esophagitis; K59.00 Constipation, unspecified; M19.91 Primary osteoarthritis, unspecified site; N40.1 Benign prostatic hyperplasia with lower urinary tract symptoms; N13.8 Other obstructive and reflux uropathy; G47.00 Insomnia, unspecified
CPT/HCPCS: 99214

== ENCOUNTER 2023-12-30 10:35 | Outpatient (REF) | payer MEDICARE, MEDICAID, SELFPAY ==
[2023-12-30 10:55] LABS: MANUAL DIFF FLAG NO
[2023-12-30 11:24] LABS: Appearance Urine Clear; Color Urine Yellow; Glucose Urine UA Negative (Negative); Leukocyte Esterase Urine Negative (Negative); Nitrite Urine Negative (Negative); UMIC TRIGGER UACC YES; Urine Blood Negative (Negative); Urine Ketones Negative (Negative); Urine Protein 100 (2+) mg/dL (Neg-Trace)
[2023-12-30 11:29] LABS: Bacteria Urine None Seen (None Seen); Hyaline Casts Urine 0-2 /LPF (0-2); RBC Urine 0-2 /HPF (0-2); Squamous Epithelial Cell Urine 0-2 /HPF (0-2); WBC Urine 0-5 /HPF (0-5)
[2023-12-30 11:51] LABS: Basophils Percent Auto 0.6 % (0-2); Eosinophils Absolute Auto 0.1 X10*3/uL (0.0-0.4); Hematocrit 45.8 % (42.0-52.0); Hemoglobin 15.4 g/dl (14.0-18.0); Imm Gran Abs Auto 0.02 X10*3/uL (0.00-0.03); Imm Gran Pct Auto 0.3 % (0.0-0.4); Lymphocytes Absolute Auto 1.6 X10*3/uL (1.2-4.9); Lymphocytes Percent Auto 23.8 % (20-40); Mean Corpuscular HGB Conc 33.6 g/dl (31.0-36.0); Mean Corpuscular Hemoglobin 30.6 pg (27.0-33.0); Mean Corpuscular Volume 91.1 fL (80.0-98.0); Monocytes Absolute Auto 0.6 X10*3/uL (0.1-1.2); Monocytes Percent Auto 9.3 % (2-11); Neutrophils Absolute Auto 4.2 x10*3/uL (2.0-8.3); Platelet Count 200 X10*3/uL (160-400); Red Blood Count 5.03 X10*6/uL (4.60-5.80); Red Cell Distribution Width 15.9 % (11.0-16.0); White Blood Count 6.6 X10*3/uL (4.8-10.8)
[2023-12-30 12:04] LABS: B Type Natriuretic Peptide 222 pg/mL (<100)
[2023-12-30 12:47] LABS: Creatinine Urine 143.23 mg/dL; Microalbum/Creatinine Ratio Ur 438.4 ug/mg cr (<30)
[2023-12-30 12:50] LABS: Alanine Aminotransferase 30 U/L (0-40); Albumin Level 4.1 g/dL (3.5-5.0); Alkaline Phosphatase 63 U/L (39-117); Anion Gap 13 (12-20); Aspartate Amino Transferase 24 U/L (5-37); Bilirubin Total 0.6 mg/dL (0.0-1.0); Blood Urea Nitrogen 29 mg/dL (9-16); Calcium 9.6 mg/dL (8.4-10.2); Carbon Dioxide 31 mmol/L (22-29); Chloride 105 mmol/L (96-108); Cholesterol 254 mg/dL (<200); Estimated Glomerular Filt Rate 58; Free T4 (Free Thyroxine) < 0.42 ng/dL (0.71-1.85); Glucose Fasting 145 mg/dL (60-99); HDL Cholesterol 67 mg/dL (>40); LDL Cholesterol Calculated 159 mg/dL (<100); Potassium 3.6 mmol/L (3.3-5.1); Sodium 145 mmol/L (135-145); Total Protein 7.5 g/dL (6.5-8.0); Triglycerides 143 mg/dL (<150)
[2023-12-30 13:23] LABS: Thyroid Stimulating Hormone > 100.00 uIU/mL (0.32-4.0)
[2023-12-30 14:54] LABS: Folate 10.3 ng/mL (> or = 4.0); Vitamin B12 1254 pg/mL (200-900)
[2023-12-30 14:55] LABS: Estimated Average Glucose 108 mg/dL; Hemoglobin A1c % 5.4 % (<6.0)
== END 2023-12-30 10:36 | disposition home or self-care (01) ==
LOC: HO.LAB 10:35
PROVIDERS: PCP Internal Medicine; Visit Provider Internal Medicine
DX: E55.9 Vitamin D deficiency, unspecified (principal); E53.8 Deficiency of other specified B group vitamins; E11.9 Type 2 diabetes mellitus without complications; E03.9 Hypothyroidism, unspecified; E78.00 Pure hypercholesterolemia, unspecified; D64.9 Anemia, unspecified; I50.9 Heart failure, unspecified; I42.9 Cardiomyopathy, unspecified; R30.0 Dysuria
CPT/HCPCS: 36415; 80053; 80061; 81001; 82043; 82306; 82570; 82607; 82746; 83036; 83880; 84439; 84443; 85025

== ENCOUNTER 2024-01-30 09:26 | Inpatient (IN) | payer MEDICARE, MEDICAID, SELFPAY ==
[2024-01-30] VITALS (11 sets, daily range): BP systolic 105–180; BP diastolic 49–100; PULSE 57–83; RESP 16–18; TEMP 36.4–36.8; O2SAT 88–98; BMI 32.2
--- NOTE | ~2024-01-30 | NM_ITS ---
BILIARY TRACT IMAGING STUDY CLINICAL INDICATION: Right upper quadrant pain, evaluate for cholecystitis COMPARISON: Abdominal ultrasound on 01/30/2024 PROCEDURE: Scintillation camera images were obtained over the abdomen for an observation of 60 minutes following the intravenous administration of 1.9 millicuries technetium 99m Mebrofenin FINDINGS: There is good concentration of activity in the liver by 5 minutes post injection. Biliary activity is well visualized by 20 minutes, and there is good visualization of small bowel activity by 26 minutes. The gallbladder is well visualized by 25 minutes. NM/NM hepatobiliary wo pharm IMPRESSION: Normal biliary scan. Visualization of the gallbladder is evidence of a patent cystic duct and strong evidence against the diagnosis of acute cholecystitis. The common bile duct is patent. Liver function appears normal.
--- NOTE | ~2024-01-30 | XR_ITS ---
EXAMINATION: XR CHEST CLINICAL INFORMATION: Cough and pain COMPARISON: Review is chest x-ray most recent June 2023 TECHNIQUE: Frontal view of the chest was obtained. FINDINGS: Low lung volumes. The cardiac silhouette appears enlarged. There is pulmonary venous redistribution and increased perihilar attenuation bilaterally. There is loss of the left hemidiaphragm likely from combination of left lower lobe atelectasis/consolidation and effusion. No pneumothorax. XR/XR chest 1V IMPRESSION: Enlarged heart. Question mild pulmonary edema versus pneumonia. Loss of the left hemidiaphragm likely from combination of left lower lobe atelectasis/consolidation and small effusion.
--- NOTE | ~2024-01-30 | CT_ITS ---
EXAMINATION: CT CHEST WITHOUT CONTRAST CLINICAL INFORMATION: Shortness of breath COMPARISON: Previous chest CT January 2023 and chest x-ray from earlier the same day TECHNIQUE: Multidetector volumetric CT imaging of the chest was done. Axial MIP volume rendering provided. Sagittal and coronal reformatted images were obtained. This CT examination was performed using dose optimization techniques as appropriate, variously including the following: *Automated exposure control *Adjustment of mA and/or kV according to patient size (this includes techniques or standardized protocols for targeted exams where dose is matched to indication/reason for exam; i.e. extremities or head) *Use of iterative reconstruction technique DLP: 314 mGy-cm FINDINGS: LUNGS: Evaluation of the lungs is limited due to respiratory motion artifact. New 1 cm left upper lobe apical semisolid nodule. Bilateral perihilar airspace disease, greatest in the left upper lobe. Bilateral lower lobe atelectasis/consolidation, left greater than right, adjacent to the effusions. Azygos lobe. MEDIASTINUM: Enlarged heart. Small pericardial effusion. Mild coronary artery calcification. No enlarged hilar or mediastinal lymph nodes. CORONARY ARTERY CALCIFICATION: Mild PLEURA: Small right and moderate left pleural effusions. AXILLA: No lymphadenopathy. UPPER ABDOMEN: Unremarkable. OSSEOUS STRUCTURES: Right posterior 11th rib fracture. Degenerative changes of the spine. CT/CT chest wo IV con IMPRESSION: Limited exam due to respiratory motion artifact. Probable CHF with bilateral pleural effusions, left greater than right. There is a new 1 cm heterogeneous left upper lobe nodule and asymmetric increased perihilar airspace disease in the left upper lobe. Superimposed infectious process cannot be excluded. Chest CT imaging follow-up of left upper lobe apical nodule recommended. New small pericardial effusion. Posterior lateral right 11th rib fracture. Fleischner guidelines were followed.
--- NOTE | ~2024-01-30 | CT_ITS ---
EXAMINATION: CT ABDOMEN AND PELVIS WITHOUT CONTRAST CLINICAL INFORMATION: Abdominal pain COMPARISON: CT from 2002 and KUB from earlier the same day TECHNIQUE: Multidetector volumetric imaging was performed from the superior aspect of the liver through the pubic symphysis. Sagittal and coronal reformatted images were obtained on the technologist's workstation. This CT examination was performed using dose optimization techniques as appropriate, variously including the following: *Automated exposure control *Adjustment of mA and/or kV according to patient size (this includes techniques or standardized protocols for targeted exams where dose is matched to indication/reason for exam; i.e. extremities or head) *Use of iterative reconstruction technique DLP: 808 mGy-cm FINDINGS: LIVER, GALLBLADDER, AND BILIARY TREE: The liver is normal in size, shape, and attenuation. No focal hepatic lesion or biliary ductal dilatation is present. Small gallstones. Question small amount of pericholecystic fluid. PANCREAS: Unremarkable. SPLEEN: Unremarkable. ADRENAL GLANDS: Unremarkable. KIDNEYS AND URETERS: The kidneys are normal in size, shape, and attenuation. Mild fullness of both renal collecting systems. No ureteral dilatation. No stone. BLADDER: Unremarkable. GASTROINTESTINAL TRACT: Postsurgical changes following right hemicolectomy. Constipation. Mild diverticulosis of the colon. ABDOMINAL WALL: No significant hernia is appreciated. LYMPH NODES: Normal. VASCULAR: Atherosclerotic disease. PELVIC VISCERA: Unremarkable. OSSEOUS STRUCTURES: Degenerative changes of the spine and hip joints. CT/CT abdomen pelvis wo IV con IMPRESSION: Gall stones. Question small amount of pericholecystic fluid. If there is concern for cholecystitis, follow-up ultrasound would be recommended. Constipation and diverticulosis of the colon. Post surgical changes following right hemicolectomy. Fleischner guidelines were followed.
--- NOTE | ~2024-01-30 | US_ITS ---
EXAMINATION: US ABDOMEN LIMITED CLINICAL INFORMATION: Right upper quadrant pain. COMPARISON: CT from earlier the same day TECHNIQUE: Real-time imaging of the gallbladder FINDINGS: GALLBLADDER: The gallbladder is normal in size. There are gallstones. The gallbladder wall is slightly thickened measuring between 3 and 6 mm. No gallbladder wall edema or pericholecystic fluid. The microbiology technologist does not report that the patient is tender over the gallbladder. COMMON BILE DUCT: Normal in caliber measuring 0.3 cm in diameter. US/US abdomen limited IMPRESSION: Gallstones and slightly thickened gallbladder wall. Differential would include cholecystitis, gallbladder wall changes related to liver disease, low albumin and cholangitis. If there is clinical concern of cholecystitis, HIDA scan could be considered.
--- NOTE | ~2024-01-30 | XR_ITS ---
EXAMINATION: XR ABDOMEN KUB CLINICAL INDICATION: Constipation COMPARISON: Previous KUB October 2023 TECHNIQUE: AP view of the abdomen. FINDINGS: Stool throughout the colon suggestive of constipation. No dilated loops of bowel to suggest obstruction. No free air. Degenerative changes of the spine and hips. XR/XR KUB IMPRESSION: Constipation.
--- NOTE | 2024-01-30 09:52 | ECG_ITS ---
Test Reason : SOB Blood Pressure : / mmHG Vent. Rate : 060 BPM Atrial Rate : 060 BPM P-R Int : 130 ms QRS Dur : 148 ms QT Int : 474 ms P-R-T Axes : 000 -08 166 degrees QTc Int : 474 ms Normal sinus rhythm Left bundle branch block Abnormal ECG When compared with ECG of 18-NOV-2023 18:21, Premature atrial complexes are no longer Present Nonspecific T wave abnormality has replaced inverted T waves in Lateral leads Referred By: Selena Lemus Electronically Signed By:Phil Espinal
--- NOTE | 2024-01-30 10:22 | ED_ITS ---
HPI - General Adult General Chief complaint: Abdominal Pain Stated complaint: CONSTIPATION SOB Time Seen by Provider: 01/30/24 09:52 Source: patient Mode of arrival: ambulatory Limitations: no limitations History of Present Illness HPI narrative: This is a 73-year-old male presenting with abdominal pain, shortness of breath all of which started this morning. Patient reports he also feels constipated he does not remember when his last bowel movement was. He reports abdominal pain is diffuse however worse to the right side. He also feels pretty short of breath worse with exertion. Denies associated chest pain, fevers, chills, headache, vision changes, dizziness, weakness, nausea, vomiting, blood in stool. Remote history of abdominal surgeries in the past. Patient is still passing gas. Related Data Home Medications ?Medication ?Instructions ?Recorded ?Confirmed fluticasone propionate 50 1 spray intranasal BID 11/23/22 12/30/23 mcg/actuation nasal spray,suspension ibuprofen 600 mg tablet 600 mg PO Q6H PRN Pain 11/23/22 12/30/23 pramipexole 0.125 mg tablet 0.125 mg PO TID 11/23/22 12/30/23 furosemide 20 mg tablet 20 mg PO DAILY 05/04/23 12/30/23 potassium chloride 20 mEq 20 meq PO DAILY 05/04/23 12/30/23 tablet,extended release Previous Rx's ?Medication ?Instructions ?Recorded donepezil 5 mg tablet 5 mg PO BEDTIME 30 days #30 tabs 01/06/22 olanzapine 2.5 mg tablet 2.5 mg PO BEDTIME 30 days #30 tabs 01/06/22 paliperidone palmitate 156 mg/mL 156 mg IM QMONTH #1 mL 01/06/22 intramuscular syringe (Invega Sustenna) trazodone 100 mg tablet 100 mg PO BEDTIME PRN Insomnia 30 01/06/22 days #30 tabs finasteride 5 mg tablet 5 mg PO DAILY #90 tabs 08/19/23 docusate sodium 100 mg capsule 100 mg PO DAILY PRN constipation 11/17/23 (Colace) #10 caps polyethylene glycol 3350 17 17 g PO DAILY PRN constipation 11/17/23 gram/dose oral powder (Miralax) #119 grams tamsulosin 0.4 mg capsule 0.4 mg PO BEDTIME 3 weeks #21 caps 11/17/23 atorvastatin 40 mg tablet 40 mg PO BEDTIME #90 tabs 12/22/23 levothyroxine 200 mcg tablet 200 mcg PO DAILY@0630 90 days #90 12/22/23 tabs losartan 50 mg tablet 50 mg PO DAILY 90 days #90 tabs 12/22/23 omeprazole 20 mg capsule,delayed 20 mg PO DAILY@0630 90 days #90 12/22/23 release caps divalproex 250 mg tablet,delayed 250 mg PO BID 90 days #180 tabs 01/01/24 release Allergies Allergy/AdvReac Type Severity Reaction Status Date / Time lisinopril [LISINOPRIL] Allergy Intermediate RASH Verified 01/30/24 10:09 Review of Systems 2 Review of Systems: Yes all other systems are reviewed and are negative [facility] Past Medical History Attestation statement: The following information was validated with the patient. Source: old records reviewed and nursing notes reviewed Medical History Overweight (BMI 25.0-29.9) Hypothyroid Dementia Benign prostatic hyperplasia with urinary obstruction Obesity (BMI 30-39.9) Anxiety Insomnia Vitamin D deficiency Allergic rhinitis Osteoarthritis COPD (chronic obstructive pulmonary disease) Acquired hypothyroidism Benign essential hypertension Pure hypercholesterolemia Diabetes mellitus CAD (coronary artery disease) Constipation Abdominal pain, chronic, right lower quadrant GERD (gastroesophageal reflux disease) Surgical History History of esophagogastroduodenoscopy (EGD) Hx of colonoscopy History of colectomy History of excision of pilonidal cyst History of arthroscopic knee surgery History of skin graft History of cardiac catheterization History of eye surgery Family History Family History Father Stroke CVD (cerebrovascular disease) Mother Hypertension Social History Social History Household Members: None Housing: Apartment Do you presently have visiting nurse or other home services: Yes (Had Sunil Case ([facility]) and [facility]) Unable to assess alcohol history related to: Refusing to respond Alcohol intake: former Comment: PT on 15 minute checks Patient Tobacco Use Status: Former Tobacco user Quit Date: long time ago Tobacco use type: Cigarette and Cigar Years Smoked: unknown Smoked in Last 30 Days: No e-Cigarette/Vaping Use: Never Used Second Hand Smoke Exposure: No Use of substances other than those prescribed or required for medical reasons: No Advance Directives: Yes Advance Directives on File: Yes Advance Directives Date on File: 05/06/23 service: No Current occupational status: retired Sexual orientation: Straight/Heterosexual Cognitive needs: No Hearing needs: No Vision needs: No Physical Exam ED Vital Signs: Vital Signs - 24 hr 01/30/24 10:06 01/30/24 10:18 01/30/24 10:31 Temperature 97.5 F Pulse Rate 60 Respiratory Rate 16 18 Blood Pressure 151/78 H Pulse Oximetry 95 88 L Oxygen Delivery Method Room Air Room Air Oxygen Flow Rate 01/30/24 11:09 01/30/24 13:15 Temperature Pulse Rate 58 58 Respiratory Rate 16 16 Blood Pressure 158/92 H 155/84 H Pulse Oximetry 98 95 Oxygen Delivery Method Nasal Cannula Nasal Cannula Oxygen Flow Rate 2 2.5 BMI result Body Mass Index 32.2 vss Appearance: Alert.? Oriented X3.? Mild acute distress.? Head: Normocephalic, atraumatic, no step-offs or deformities Eyes: Pupils equal, round and reactive to light.? ENT: Pharynx normal.? Neck: Normal inspection.? Neck supple.? CVS: Normal heart rate and rhythm.? Pulses normal.? Respiratory: Mild respiratory distress.? Breath sounds dimiinished. .? Abdomen: Soft and diffuse tenderness R>L w/ hypoactive bowel sounds to r side..? Skin: Skin warm and dry.? Normal skin color.? Normal skin turgor.? Extremities: No lower extremity edema.? No calf ttp. 5/5 strength to bilateral upper and lower extremities Neuro: Oriented X 3.? No motor deficit.? No sensory deficit. CN 2-12 intact Course Reevaluation(s) Reevaluation #1: CBC with a normocytic anemia appears to be around patient's baseline. Chemistry with elevated BUN and creatinine which appears to be chronic in nature and not an acute finding. BNP markedly elevated 1103, I already ordered 40 of Lasix will repeat another 40 if blood pressure holds. Troponin 15.2 likely secondary to demand from shortness of breath and likely CHF. Lactic acid normal. Chest x-ray enlarged heart question mild pulmonary edema versus pneumonia, this is likely pulmonary edema. KUB showing constipation. CT chest ordered as well as CT abdomen to further evaluate abdominal pain. Time: 10:57 Reevaluation #2: CT chest with limited exam due to motion however probable CHF with bilateral pleural effusions left greater than right. Superimposed infection can not be excluded however patient clinically appears to be in fluid overload/CHF. No fever unlikely this is infectious. Patient also does not have a white count. Will hold on antibiotics at this time. No pericardial effusion and posterior lateral right 11th rib fracture, no reports of trauma however. CT abdomen with gallstones and question small amount of pericholecystic fluid there was concern for cholecystitis they recommend ultrasound therefore ultrasound will be ordered at this time. Time: 12:50 Reevaluation #3: Plan admission for CHF. I did discuss this case with surgery who recommends HIDA scan. They will follow. Time: 14:45 Medications Administered Discontinued Medications Generic Name Dose Route Start Last Admin Trade Name Freq PRN Reason Stop Dose Admin Furosemide 40 mg 01/30/24 10:22 01/30/24 10:28 Furosemide 40 Mg/4 Ml Vial IVPUSH 01/30/24 10:23 40 mg STAT STA Administration Protocol Furosemide 40 mg 01/30/24 12:47 01/30/24 13:16 Furosemide 40 Mg/4 Ml Vial IVPUSH 01/30/24 12:48 40 mg STAT STA Administration Protocol Medical Decision Making Medical Decision Making [facility] Narrative: 1032 73 year old male presents w/ sob and abd pain x 1 day Diminished breathsounds b/l. Soft and diffuse tendernessR>L w/ hypoactive bowel sounds to r side. Patient has 3+ nonpitting edema to bilateral lower extremities. History and physical exam concerning for CHF and possible bowel obstruction versus ileus or volvulus or viral illness. Unlikely acute abdomen, appendicitis, diverticulitis, pancreatitis. Will rule out metabolic derangements and UTI. Unlikely PE or pneumonia. Will rule out cholecystitis Plan labs, imaging Differential Diagnosis Differential Diagnoses: The differential diagnosis associated with the presentation includes History and physical exam concerning for CHF and possible bowel obstruction versus ileus or volvulus or viral illness . Unlikely acute abdomen, appendicitis, diverticulitis, pancreatitis. Will rule out metabolic derangements and UTI. Unlikely PE or pneumonia. Will rule out cholecystitis Admission/Observation Consideration of admission/observation: Escalation of care including admission/observation considered Possible Lab Data MDM Lab Attestation statement: I reviewed the patient's lab results. 01/30/24 10:20 01/30/24 10:20 Labs: Lab Results 01/30/24 01/30/24 01/30/24 Range/Units 10:20 10:27 11:11 WBC 6.1 (4.8-10.8) X10*3/uL RBC 4.21 L (4.60-5.80) X10*6/uL Hgb 13.0 L (14.0-18.0) g/dl Hct 39.8 L (42.0-52.0) % MCV 94.5 (80.0-98.0) fL MCH 30.9 (27.0-33.0) pg MCHC 32.7 (31.0-36.0) g/dl RDW 15.2 (11.0-16.0) % Plt Count 245 (160-400) X10*3/uL MPV 9.0 L (9.4-12.4) fL Immature Gran % (Auto) 0.2 (0.0-0.4) % Neut % (Auto) 68.6 (45-73) % Lymph % (Auto) 16.0 L (20-40) % [place] % (Auto) 12.1 H (2-11) % Eos % (Auto) 2.6 (0-4) % Baso % (Auto) 0.5 (0-2) % Lymph # (Auto) 1.0 L (1.2-4.9) X10*3/uL [place] # (Auto) 0.7 (0.1-1.2) X10*3/uL Eos # (Auto) 0.2 (0.0-0.4) X10*3/uL Baso # (Auto) 0.0 (0.0-0.2) X10*3/uL Abs Immat Gran (auto) 0.01 (0.00-0.03) X10*3/uL Absolute Neuts (auto) 4.2 (2.0-8.3) x10*3/uL Absolute Nucleated RBC 0.000 (0.0-0.012) X10*3/uL Nucleated RBC % (auto) 0.0 (0.0-0.2) /100WBC Sodium 144 (135-145) mmol/L Potassium 4.2 (3.3-5.1) mmol/L Chloride 111 H (96-108) mmol/L Carbon Dioxide 26 (22-29) mmol/L Anion Gap 11 L (12-20) BUN 36 H (9-16) mg/dL Creatinine 1.07 (0.5-1.4) mg/dL Estim Creat Clear Calc 74.5 Estimated GFR > 60 Random Glucose 104 (60-115) mg/dL Lactic Acid 0.9 (0.5-2.0) mmol/L Calcium 9.0 D (8.4-10.2) mg/dL Magnesium 2.2 (1.6-2.6) mg/dL Total Bilirubin 0.6 (0.0-1.0) mg/dL AST 29 (5-37) U/L ALT 41 H (0-40) U/L Alkaline Phosphatase 71 (39-117) U/L Troponin I High Sens 15.2 D (<3.5-35.0) ng/L B-Natriuretic Peptide 1103 H (<100) pg/mL Total Protein 6.8 (6.5-8.0) g/dL Albumin 3.6 (3.5-5.0) g/dL Lipase 53 (8-78) U/L Urine Color Yellow Urine Appearance Clear Urine pH 5.5 (5.0-9.0) Ur Specific [place] 1.010 (1.005-1.025) Urine Protein Negative (Neg-Trace) mg/dL Urine Glucose (UA) Negative (Negative) mg/dL Urine Ketones Negative (Negative) mg/dL Urine Blood Trace H (Negative) Urine Nitrite Negative (Negative) Ur Leukocyte Esterase Negative (Negative) Urine RBC 0-2 (0-2) /HPF Urine WBC 0-5 (0-5) /HPF Ur Squamous Epith Cells 0-2 (0-2) /HPF Urine Bacteria None Seen (None Seen) Hyaline Casts 0-2 (0-2) /LPF Independent Interpretation I performed an independent interpretation of an: EKG (Vent. Rate : 060 BPM Atrial Rate : 060 BPM P-R Int : 130 ms QRS Dur : 148 ms QT Int : 474 ms P-R-T Axes : 000 -08 166 degrees QTc Int : 474 ms Normal sinus rhythm Left bundle branch block Abnormal ECG When compared with ECG of 18-NOV-2023 18:21, Premature atrial comple), Plain X-Ray (XR/XR KUB IMPRESSION: Constipation.XR/XR chest 1V IMPRESSION: Enlarged heart. Question mild pulmonary edema versus pneumonia. Loss of the left hemidiaphragm likely from combination of left lower lobe atelectasis/consolidation and small effusion. ) and CT Scan Radiology Impression Discussion of test interpretation with radiology: I have reviewed the radiologist's reading. Critical Care Time Critical Care Time Critical Care Time: Yes Total Critical Care Time: 45 Attestation: I attest to this time spent taking care of the patient, obtaining history, physical, reviewing labs, imaging, speaking to my attending, specialist or hospitalist. Discharge Plan Discharge Clinical Impression: CHF (congestive heart failure), Right sided abdominal pain, Hypoxia Patient Disposition: Admitted As Inpatient Print Language: Monegasque
[2024-01-30 10:24] LABS: MANUAL DIFF FLAG NO
[2024-01-30] MEDS: Furosemide 40 MG/4 ML VIAL IVPUSH ×3 (10:28→18:21)
[2024-01-30 10:29] LABS: Basophils Percent Auto 0.5 % (0-2); Eosinophils Absolute Auto 0.2 X10*3/uL (0.0-0.4); Eosinophils Percent Auto 2.6 % (0-4); Hematocrit 39.8 % (42.0-52.0); Imm Gran Abs Auto 0.01 X10*3/uL (0.00-0.03); Imm Gran Pct Auto 0.2 % (0.0-0.4); Mean Corpuscular HGB Conc 32.7 g/dl (31.0-36.0); Mean Corpuscular Hemoglobin 30.9 pg (27.0-33.0); Mean Corpuscular Volume 94.5 fL (80.0-98.0); Monocytes Absolute Auto 0.7 X10*3/uL (0.1-1.2); Monocytes Percent Auto 12.1 % (2-11); Neutrophils Absolute Auto 4.2 x10*3/uL (2.0-8.3); Neutrophils Percent Auto 68.6 % (45-73); Platelet Count 245 X10*3/uL (160-400); Red Blood Count 4.21 X10*6/uL (4.60-5.80); Red Cell Distribution Width 15.2 % (11.0-16.0); White Blood Count 6.1 X10*3/uL (4.8-10.8)
[2024-01-30 10:43] LABS: Lactic Acid 0.9 mmol/L (0.5-2.0)
[2024-01-30 10:43] LABS: Alanine Aminotransferase 41 U/L (0-40); Albumin Level 3.6 g/dL (3.5-5.0); Alkaline Phosphatase 71 U/L (39-117); Anion Gap 11 (12-20); Aspartate Amino Transferase 29 U/L (5-37); Bilirubin Total 0.6 mg/dL (0.0-1.0); Blood Urea Nitrogen 36 mg/dL (9-16); Carbon Dioxide 26 mmol/L (22-29); Chloride 111 mmol/L (96-108); Creatinine Clr Calc Pharmacy 74.5; Estimated Glomerular Filt Rate > 60; Glucose Random 104 mg/dL (60-115); Magnesium 2.2 mg/dL (1.6-2.6); Potassium 4.2 mmol/L (3.3-5.1); Sodium 144 mmol/L (135-145); Total Protein 6.8 g/dL (6.5-8.0)
[2024-01-30 10:48] LABS: B Type Natriuretic Peptide 1103 pg/mL (<100)
[2024-01-30 10:51] LABS: Troponin-I High Sensitivity 15.2 ng/L (<3.5-35.0)
[2024-01-30 11:24] LABS: Appearance Urine Clear; Color Urine Yellow; Glucose Urine UA Negative (Negative); Leukocyte Esterase Urine Negative (Negative); Nitrite Urine Negative (Negative); PH 5.5 (5.0-9.0); UMIC TRIGGER UACC YES; Urine Blood Trace (Negative); Urine Ketones Negative (Negative); Urine Protein Negative (Neg-Trace)
[2024-01-30 11:29] LABS: Bacteria Urine None Seen (None Seen); Hyaline Casts Urine 0-2 /LPF (0-2); RBC Urine 0-2 /HPF (0-2); Squamous Epithelial Cell Urine 0-2 /HPF (0-2); WBC Urine 0-5 /HPF (0-5)
--- NOTE | 2024-01-30 12:20 | PC.NURSE ---
ARRIVES FROM HOME SOB, BELLY BREATHING C/O RLQ PAIN FOR UNDETERMINED AMT OF TIME. BS HYPOACTIVE THROUGHOUT. PT IS POOR HISTORIAN, CANNOT RECALL LAST BM, THOUGH CONFIRMS HE IS PASSING GAS. SPO2 ON RA DROPS ON EXERTION TO 88%, PLACED ON SUPPLEMENTAL 2L, PA MADE AWARE. IVP LASIX ADMINISTERED WITH GOOD EFFECT, 1400CCS CLEAR URINE OUTPUT SO FAR.
[2024-01-30 13:09] LABS: Lipase 53 U/L (8-78)
--- NOTE | 2024-01-30 14:57 | PC.NURSE ---
PT BECOMING AGITATED, DEMANDING FOOD, CURRENTLY NPO PER PROVIDER.
--- NOTE | 2024-01-30 15:26 | P.HPHOSP_ITS ---
History of Present Illness Date of Service: 01/30/24 Attending physician on admission: Ponce Mackey Chief Complaint: SOB and abd pain Pt is a 73-year-old male with a PMH significant for?CAD s/p cardiac cath in 2019, HTN, HLD, COPD, diet-controlled type 2 diabetes, hypothyroidism, GERD, BPH, parkinsonism likely secondary to exposure to antipsychotic medications, bipolar disorder type 1 with delusions and paranoia who presents to the ED reportedly for evaluation abdominal pain and constipation. Patient has a long history of psychiatric admissions, including 3 admissions Dawn psych here at the hospital with last admission from 11/22/2021-01/05/2022. Patient likely has some component of underlying dementia or diffuse cerebral degeneration. Patient is a poor historian and HPI very difficult to obtain as patient lacks details and specifics concerning his symptoms, and story seems to continually change. For instance, when asked about last bowel movement patient initially states had one ?a while ago? though could not be more specific. When asked to clarify if it was a few days or weeks ago pt then reports he thinks he had one this morning though I might be wrong . Also reports right-sided abdominal pain for an unspecified amount of time. Currently says he is pain-free. Denies any chest pain or pressure. Possibly had some SOB when he walked to the mailbox the other day but unclear if SOB is new, worsening, or chronic. Pt uncertain if lower leg edema is worse or at baseline. Of note, pt stopped on his own taking all of his home prescription medications for over four months from through 12/30/2023. He currently has resumed only his levothyroxine, losartan, aspirin, and p.r.n. Tylenol. In the ED pt was hypertensive up to 158/92 and satting as low as 88% RA. Labs were significant for elevated BNP of 1103, otherwise grossly unremarkable and WNL for patient. UA negative for UTI. CXR showed enlarged heart with question of mild pulmonary edema versus pneumonia with likely small left pleural effusion. KUB found stool throughout the colon suggestive of constipation. CT of chest limited due to respiratory motion artifact, but showed probable CHF with bilateral pleural effusions, left greater than right. Also found 1 cm heterogeneous left upper lobe nodule and asymmetric increased perihilar airspace disease in left upper lobe, superimposed infectious process can not be excluded. CT of abdomen and pelvis found gallstones with question of small amount pericholecystic fluid. Abdominal ultrasound found gallstones with slightly thickened gallbladder wall suggestive possible cholecystitis. EKG demonstrated normal sinus rhythm with left bundle branch block but no evidence of significant ST elevations or depressions. Pt was treated with Lasix 40mg IV x2 doses. Pt will be admitted to the hospital for treatment and further evaluation of new onset CHF and question of cholecystitis. Review of Systems 2 Review of Systems: Difficult to obtain due to patient's mentation and conflicting/changing HPI/ROS [facility] Medical History Overweight (BMI 25.0-29.9) Hypothyroid Dementia Benign prostatic hyperplasia with urinary obstruction Obesity (BMI 30-39.9) Anxiety Insomnia Vitamin D deficiency Allergic rhinitis Osteoarthritis COPD (chronic obstructive pulmonary disease) Acquired hypothyroidism Benign essential hypertension Pure hypercholesterolemia Diabetes mellitus CAD (coronary artery disease) Constipation Abdominal pain, chronic, right lower quadrant GERD (gastroesophageal reflux disease) Family History Father Stroke CVD (cerebrovascular disease) Mother Hypertension Surgical History History of esophagogastroduodenoscopy (EGD) Hx of colonoscopy History of colectomy History of excision of pilonidal cyst History of arthroscopic knee surgery History of skin graft History of cardiac catheterization History of eye surgery Social History Household Members: None Housing: Apartment Do you presently have visiting nurse or other home services: Yes (Had Sunil Case ([facility]) and [facility]) Unable to assess alcohol history related to: Refusing to respond Alcohol intake: former Comment: PT on 15 minute checks Patient Tobacco Use Status: Former Tobacco user Quit Date: long time ago Tobacco use type: Cigarette and Cigar Years Smoked: unknown Smoked in Last 30 Days: No e-Cigarette/Vaping Use: Never Used Second Hand Smoke Exposure: No Use of substances other than those prescribed or required for medical reasons: No Advance Directives: Yes Advance Directives on File: Yes Advance Directives Date on File: 05/06/23 service: No Current occupational status: retired Sexual orientation: Straight/Heterosexual Cognitive needs: No Hearing needs: No Vision needs: No Meds Allergies Allergy/AdvReac Type Severity Reaction Status Date / Time lisinopril [LISINOPRIL] Allergy Intermediate RASH Verified 01/30/24 10:09 Home Medications ?Medication ?Instructions ?Recorded ?Confirmed ?Last Taken ?Type acetaminophen 500 mg tablet 500 mg PO BID PRN Pain 01/30/24 01/30/24 Unknown History aspirin 81 mg tablet,delayed 81 mg PO DAILY 01/30/24 01/30/24 Unknown History release levothyroxine 200 mcg tablet 200 mcg PO DAILY@0600 01/30/24 01/30/24 Unknown History Physical Exam 2 Vital Signs and Narrative: Vital Signs: Last Vital Signs Temp 97.6 F 01/30/24 14:56 Pulse 62 01/30/24 14:56 Resp 16 01/30/24 14:56 BP 150/87 H 01/30/24 14:56 Pulse Ox 94 01/30/24 14:56 O2 Del Method Room Air 01/30/24 14:56 O2 Flow Rate 2.5 01/30/24 13:15 BMI result Body Mass Index 32.2 Constitutional: Alert, in no acute distress. Mental Status: Oriented to person, place and time, though inconsistent, vague, and contradictory. Eyes: Pupils are equal, round, and reactive to light. Ear, Nose, and Throat: Oropharynx clear, mucous membranes moist. Ears and nose without deformities. Trachea midline. Respiratory: Clear to auscultation bilaterally. No wheezing, rales, or rhonchi. Cardiovascular: S1, S2 regular. No murmurs, rubs, or gallops. Gastrointestinal: Abdomen soft, non-tender, non-distended. Normal bowel sounds. Negative Umanzor's sign. Neurologic: Cranial nerves II-XII are grossly intact bilaterally. No focal neurological deficits. Moves all extremities spontaneously. Skin: Warm, dry. Extremities: 3+ bilateral pitting edema. Results Labs 01/30/24 10:20 01/30/24 10:20 Labs: Laboratory Results - last 24 hr 01/30/24 01/30/24 01/30/24 10:20 10:27 11:11 MCV 94.5 MCH 30.9 MCHC 32.7 RDW 15.2 Plt Count 245 MPV 9.0 L Immature Gran % (Auto) 0.2 Neut % (Auto) 68.6 Lymph % (Auto) 16.0 L [place] % (Auto) 12.1 H Eos % (Auto) 2.6 Baso % (Auto) 0.5 Lymph # (Auto) 1.0 L [place]iles # (Auto) 0.7 Eos # (Auto) 0.2 Baso # (Auto) 0.0 Abs Immat Gran (auto) 0.01 Absolute Neuts (auto) 4.2 Absolute Nucleated RBC 0.000 Nucleated RBC % (auto) 0.0 Anion Gap 11 L Estim Creat Clear Calc 74.5 Estimated GFR > 60 Random Glucose 104 Lactic Acid 0.9 Calcium 9.0 D Magnesium 2.2 Total Bilirubin 0.6 AST 29 ALT 41 H Alkaline Phosphatase 71 Troponin I High Sens 15.2 D B-Natriuretic Peptide 1103 H Total Protein 6.8 Albumin 3.6 Lipase 53 Urine Color Yellow Urine Appearance Clear Urine pH 5.5 Ur Specific [place] 1.010 Urine Protein Negative Urine Glucose (UA) Negative Urine Ketones Negative Urine Blood Trace H Urine Nitrite Negative Ur Leukocyte Esterase Negative Urine RBC 0-2 Urine WBC 0-5 Ur Squamous Epith Cells 0-2 Urine Bacteria None Seen Hyaline Casts 0-2 Imaging Radiologist's Impressions: Impressions Chest X-Ray 01/30/24 10:01 IMPRESSION: Enlarged heart. Question mild pulmonary edema versus pneumonia. Loss of the left hemidiaphragm likely from combination of left lower lobe atelectasis/consolidation and small effusion. KUB X-Ray 01/30/24 10:01 IMPRESSION: Constipation. Abdomen/Pelvis CT 01/30/24 11:34 IMPRESSION: Gall stones. Question small amount of pericholecystic fluid. If there is concern for cholecystitis, follow-up ultrasound would be recommended. Constipation and diverticulosis of the colon. Post surgical changes following right hemicolectomy. Fleischner guidelines were followed. Chest CT 01/30/24 11:34 IMPRESSION: Limited exam due to respiratory motion artifact. Probable CHF with bilateral pleural effusions, left greater than right. There is a new 1 cm heterogeneous left upper lobe nodule and asymmetric increased perihilar airspace disease in the left upper lobe. Superimposed infectious process cannot be excluded. Chest CT imaging follow-up of left upper lobe apical nodule recommended. New small pericardial effusion. Posterior lateral right 11th rib fracture. Fleischner guidelines were followed. Abdomen Ultrasound 01/30/24 13:09 IMPRESSION: Gallstones and slightly thickened gallbladder wall. Differential would include cholecystitis, gallbladder wall changes related to liver disease, low albumin and cholangitis. If there is clinical concern of cholecystitis, HIDA scan could be considered. Assessment and Plan (1) New onset of congestive heart failure: Status: Acute Plan Pt is a 73-year-old male with a PMH significant for?CAD s/p cardiac cath in 2019, HTN, HLD, COPD, diet-controlled type 2 diabetes, hypothyroidism, GERD, BPH, parkinsonism likely secondary to exposure to antipsychotic medications, bipolar disorder type 1 with delusions and paranoia who presents to the ED reportedly for evaluation abdominal pain and constipation. Pt will be admitted to the hospital for treatment and further evaluation of new onset CHF and question of cholecystitis. New onset CHF Elevated BNP, CT of chest with probable CHF and bilateral effusions, 3+ pitting bilateral LLE Pt used to be on home furosemide 20 mg daily for LLE, but stopped taking around of last year Does not carry a formal CHF diagnosis, no echocardiogram on record Will treat with Lasix 40 mg IV b.i.d. Follow Mag lety, I/O Daily weights, low-salt diet Echocardiogram Cardiology consult Monitor on telemetry RUQ abdominal pain Question of cholecystitis on abdominal ultrasound Abdominal exam benign, negative Umanzor sign Patient does not meet sepsis criteria: No tachycardia, tachypnea, fever, or leukocytosis Will empirically cover with ceftriaxone and metronidazole NPO after midnight Will get HIDA scan tomorrow General surgery consultation Constipation Will treat with Miralax, colace HTN Continue losartan Hypothyroidism Continue levothyroxine HLD No loner taking his statin Mood disorder Patient no longer taking his home psychiatric medications Consider restarting if appropriate Full Code Attending:?Dr. Mackey DVT Prophylaxis: Lovenox Pt will require a hospitalization of at least two nights for treatment of?new onset CHF and possible cholecystitis. Patient will require hospitalization for administration of IV diuretics, close monitoring electrolytes and cardiac function, and specialist consultation with Cardiology. Patient also required administration of IV antibiotics for possible cholecystitis, as well as additional imaging and specialist consultation with General surgery. Quality Stroke Does the patient have a stroke diagnosis?: No VTE Prior VTE?: No VTE Risk Level:: Medical - moderate - high VTE Device Contraindication: Treatment Not Indicated VTE Drug Contraindication: N/A - Med Ordered
--- NOTE | 2024-01-30 15:36 | MHC.EDTECH ---
This pct assumed care of Patient at 1500 ,vitals taken ,Patient belonging list done ,Pt refused to take his shoes off to wear hospital sock ,because Pt said he is more steady with his shoes on ,1500 ml urine empty from urinal ,Call spring within Pt reach .
[2024-01-30 16:37] LABS: TSH reflex Free T4 0.97 uIU/mL (0.32-4.0)
[2024-01-30] MEDS: cefTRIAXone sodium 1 GM in 0.9 % Sodium Chloride 50 ML IV (16:52)
[2024-01-30] MEDS: Enoxaparin Sodium 40 MG/0.4 ML SYRINGE SUBCUT (16:53)
--- NOTE | 2024-01-30 17:07 | PHA.MEDREC ---
Addendum entered by Belen Palumbo doris 01/30/24 17:16: Medications from recent claim history that patient admits to not taking include depakote DR 250mg BID, atorvastatin 40mg QHS, and omeprazole 20mg QD Original Note: Pharmacy Consult ? Medication Reconciliation Pharmacy has completed the medication reconciliation. spoke with patient to confirm medications. Previous office visit notes report that patient has not been taking a lot of his other maintenance medications and patient suggested this during our conversation. MD is aware and will restart psych medications on an as needed basis.
--- NOTE | 2024-01-30 17:36 | MHC.EDTECH ---
Patient refused to wear property assessment monitor ,rn aware .
[2024-01-30] MEDS: polyethylene glycoL 3350 17 GM POWD.PACK PO (17:40)
[2024-01-30] MEDS: metroNIDAZOLE/NS 500 MG/100 ML PIGGYBACK 100 MG IV (17:40)
--- NOTE | 2024-01-30 18:02 | MHC.EDTECH ---
Patient had a sun butter and jelly sandwich and drank a can of jamie manuel for snack ,Patient was assisted to walk to bathroom and back to bed.
[2024-01-30] MEDS: Docusate Sodium 100 MG CAPSULE PO (18:20)
--- NOTE | 2024-01-30 18:23 | PC.NURSE ---
pt continues to refuse to wear security monitor and supp o2.
--- NOTE | 2024-01-30 20:18 | PC.NURSE ---
This script writer assumed care of this Pt at 1900. Pt A&Ox3, reports chronic pain to right knee. Pt stand by assist to bedside commode, reports urge to have BM but not able to. Pt medicated by previous nurse.
[2024-01-31] VITALS (7 sets, daily range): BP systolic 126–155; BP diastolic 62–77; PULSE 56–68; RESP 16–20; TEMP 36.1–36.9; O2SAT 92–97; BMI 30.3
--- NOTE | 2024-01-31 | ECG_ITS ---
Test Reason : increase HR Blood Pressure : / mmHG Vent. Rate : 072 BPM Atrial Rate : 250 BPM P-R Int : 000 ms QRS Dur : 154 ms QT Int : 582 ms P-R-T Axes : 012 008 247 degrees QTc Int : 637 ms Artifact in tracing Probably sinus rhythm Left bundle branch block Abnormal ECG No significant changes when compared with the previous EKG of 30 january 2024 Referred By: Phil Espinal Electronically Signed By:ELI LOBO
--- NOTE | 2024-01-31 00:04 | PM.EVENT ---
Event Note Date of Service: 01/31/24 Event Note: Nurse reported that patient was tachycardic. EKG with ?new onset atrial flutter. Rate controlled (70s) without any intervention. Obtain TSH. Chads Vasc score 5, defer anticoagulation as patient may need surgical intervention for possible cholecystitis. Time Spent With Patient Time: Total time managing care of this patient today ____ minutes.
[2024-01-31] MEDS: 0.9 % Sodium Chloride Flush 3 ML SYRINGE IVFLUSH ×4 (01:30→22:31)
[2024-01-31] MEDS: metroNIDAZOLE/NS 500 MG/100 ML PIGGYBACK 100 MG IV (01:30)
[2024-01-31 08:06] LABS: Anion Gap 16 (12-20); Blood Urea Nitrogen 35 mg/dL (9-16); Carbon Dioxide 26 mmol/L (22-29); Chloride 107 mmol/L (96-108); Creatinine Clr Calc Pharmacy 66.8; Estimated Glomerular Filt Rate > 60; Glucose Random 100 mg/dL (60-115); Magnesium 2.1 mg/dL (1.6-2.6); Potassium 3.8 mmol/L (3.3-5.1); Sodium 145 mmol/L (135-145)
[2024-01-31 08:18] LABS: Thyroid Stimulating Hormone 1.13 uIU/mL (0.32-4.0)
--- NOTE | 2024-01-31 09:07 | MHC.CM.PN ---
IMM 01/30. Pt with dx dementia, CM intake assessment completed with pts mother/HCP Gabriela. Pt lives alone, has [facility] services 4x/week. Pt will need assistance with transportation at D/C. Per pts mother Gabriela, pt is welcome to go to her house at D/C. Additionally, Gabriela requests to be involved with the D/C planning, and would like to be present to go over D/C paperwork as pt is very forgetful. HCP on file and verified. PCP: Dr. Samuel Schneider
--- NOTE | 2024-01-31 09:08 | HO.PM.IMPN ---
Subjective Subjective Date of Service: 01/31/24 Interval History: abd pain improved Physical Exam Vital Signs: Vital Signs: Last Vital Signs Temp 98.4 F 01/31/24 07:27 Pulse 68 01/31/24 07:27 Resp 16 01/31/24 07:27 BP 155/75 H 01/31/24 07:27 Pulse Ox 92 01/31/24 07:27 O2 Del Method Room Air 01/31/24 07:27 O2 Flow Rate 2.5 01/30/24 13:15 BMI result Body Mass Index 30.3 General: AO X 3, no acute distress Resp: CTA bilateral, no accessory muscles used CVS: S1,S2,RRR GI: soft, non tender, non distended Neuro: motor grossly intact, alert Psych: appropriate affect, impaired insight Objective Data Active Medications Acetaminophen (Acetaminophen 325 Mg Tablet) 650 mg PO Q6H PRN PRN Reason: Pain, Mild (Pain Scale 1-3) Benzonatate (Benzonatate 100 Mg Capsule) 100 mg PO TID PRN PRN Reason: Cough Docusate Sodium (Docusate Sodium 100 Mg Capsule) 100 mg PO DAILY [facility] Last Admin: 01/30/24 18:20 Dose: 100 mg Documented By: SANGEETA Enoxaparin Sodium (Enoxaparin Sodium 40 Mg/0.4 Ml Syringe) 40 mg SUBCUT Q24H [facility] Last Admin: 01/30/24 16:53 Dose: 40 mg Documented By: SANGEETA Furosemide (Furosemide 40 Mg/4 Ml Vial) 40 mg IVPUSH BID@0900,1800 [facility]; Protocol Last Admin: 01/30/24 18:21 Dose: 40 mg Documented By: SANGEETA Ceftriaxone Sodium 1 gm/ (Sodium Chloride) 50 mls @ 100 mls/hr IV Q24H [facility] Last Infusion: 01/30/24 17:40 Dose: Infused Documented By: SANGEETA Metronidazole (Flagyl) 500 mg in 100 mls @ 100 mls/hr IV Q8H [facility] Last Infusion: 01/31/24 02:40 Dose: Infused Documented By: JIM Ondansetron HCl (Ondansetron Hcl 4 Mg/2 Ml Vial) 4 mg IVPUSH Q8H PRN PRN Reason: Nausea and Vomiting Sodium Chloride (0.9 % Sodium Chloride Flush 3 Ml Syringe) 3 ml IVFLUSH QSHIFT [facility] Last Admin: 01/31/24 01:30 Dose: 3 ml Documented By: JIM Labs 01/30/24 10:20 01/31/24 07:00 Labs: Laboratory Results - last 24 hr 01/30/24 01/30/24 01/30/24 10:20 10:27 11:11 MCV 94.5 MCH 30.9 MCHC 32.7 RDW 15.2 Plt Count 245 MPV 9.0 L Immature Gran % (Auto) 0.2 Neut % (Auto) 68.6 Lymph % (Auto) 16.0 L [place] % (Auto) 12.1 H Eos % (Auto) 2.6 Baso % (Auto) 0.5 Lymph # (Auto) 1.0 L [place] # (Auto) 0.7 Eos # (Auto) 0.2 Baso # (Auto) 0.0 Abs Immat Gran (auto) 0.01 Absolute Neuts (auto) 4.2 Absolute Nucleated RBC 0.000 Nucleated RBC % (auto) 0.0 Hold Purple Top Anion Gap 11 L Estim Creat Clear Calc 74.5 Estimated GFR > 60 Random Glucose 104 Lactic Acid 0.9 Calcium 9.0 D Magnesium 2.2 Total Bilirubin 0.6 AST 29 ALT 41 H Alkaline Phosphatase 71 Troponin I High Sens 15.2 D B-Natriuretic Peptide 1103 H Total Protein 6.8 Albumin 3.6 Lipase 53 TSH 0.97 Urine Color Yellow Urine Appearance Clear Urine pH 5.5 Ur Specific [place] 1.010 Urine Protein Negative Urine Glucose (UA) Negative Urine Ketones Negative Urine Blood Trace H Urine Nitrite Negative Ur Leukocyte Esterase Negative Urine RBC 0-2 Urine WBC 0-5 Ur Squamous Epith Cells 0-2 Urine Bacteria None Seen Hyaline Casts 0-2 01/31/24 01/31/24 07:00 07:00 MCV MCH MCHC RDW Plt Count MPV Immature Gran % (Auto) Neut % (Auto) Lymph % (Auto) [place] % (Auto) Eos % (Auto) Baso % (Auto) Lymph # (Auto) [place] # (Auto) Eos # (Auto) Baso # (Auto) Abs Immat Gran (auto) Absolute Neuts (auto) Absolute Nucleated RBC Nucleated RBC % (auto) Hold Purple Top SEE NOTE Anion Gap 16 Estim Creat Clear Calc 66.8 Estimated GFR > 60 Random Glucose 100 Lactic Acid Calcium 9.0 Magnesium 2.1 Total Bilirubin AST ALT Alkaline Phosphatase Troponin I High Sens B-Natriuretic Peptide Total Protein Albumin Lipase TSH 1.13 Cancelled Urine Color Urine Appearance Urine pH Ur Specific [place] Urine Protein Urine Glucose (UA) Urine Ketones Urine Blood Urine Nitrite Ur Leukocyte Esterase Urine RBC Urine WBC Ur Squamous Epith Cells Urine Bacteria Hyaline Casts Assessment and Plan (1) New onset of congestive heart failure: Status: Acute Plan 73M PMH coronary disease, hypertension, hyperlipidemia, COPD, diabetes, hypothyroid, GERD, BPH, parkinsonism, bipolar presented with abdominal pain and constipation, found to have bilateral 3+ pitting edema Acute on chronic unspecified CHF IV Lasix Follow-up echo Monitor electrolytes Cardio eval Right upper quadrant abdominal pain with questionable cholecystitis on ultrasound Likely congestion from CHF Doubt cholecystitis will dc abx Follow-up HIDA scan Question of atrial flutter overnight Currently in sinus Roderick Hypertension Losartan Hypothyroid Synthroid Bipolar disorder Patient is off medications at this time DVT prophylaxis with Lovenox Full Code Reason for continued hospitalization: IV diuresis Quality Stroke Does the patient have a stroke diagnosis?: No VTE Prior VTE?: No VTE Risk Level:: Medical - moderate - high VTE Device Contraindication: Treatment Not Indicated VTE Drug Contraindication: N/A - Med Ordered
[2024-01-31] MEDS: Furosemide 40 MG/4 ML VIAL IVPUSH ×2 (09:59→17:23)
[2024-01-31] MEDS: Docusate Sodium 100 MG CAPSULE PO (10:06)
--- NOTE | 2024-01-31 10:53 | PM.CNCAR ---
History of Present Illness History of Present Illness Date of Service: 01/31/24 Requesting physician: Ponce Mackey Chief complaint: CONSTIPATION SOB Narrative: 73-year-old gentleman presenting for abdominal discomfort and constipation. He has Parkinson disease. He has chronic left bundle-branch block. His blood workup showed elevated BNP level and he had some features of congestive heart failure and was admitted for further assessment. He has been on IV diuretics. His denying any chest discomfort or shortness of breath. Denying any orthopnea although with minimal movements in the bed he is getting out of breath. Blood pressure is elevated. He is on Lasix IV b.i.d.. He is on losartan 50 mg daily. [facility] Past Medical History Medical History Overweight (BMI 25.0-29.9) Hypothyroid Dementia Benign prostatic hyperplasia with urinary obstruction Obesity (BMI 30-39.9) Anxiety Insomnia Vitamin D deficiency Allergic rhinitis Osteoarthritis COPD (chronic obstructive pulmonary disease) Acquired hypothyroidism Benign essential hypertension Pure hypercholesterolemia Diabetes mellitus CAD (coronary artery disease) Constipation Abdominal pain, chronic, right lower quadrant GERD (gastroesophageal reflux disease) Family History Family History Father Stroke CVD (cerebrovascular disease) Mother Hypertension Surgical History Surgical History History of esophagogastroduodenoscopy (EGD) Hx of colonoscopy History of colectomy History of excision of pilonidal cyst History of arthroscopic knee surgery History of skin graft History of cardiac catheterization History of eye surgery Social History Social History Household Members: None Housing: House Do you presently have visiting nurse or other home services: Yes Unable to assess alcohol history related to: Refusing to respond Alcohol intake: former Comment: PT on 15 minute checks Patient Tobacco Use Status: Former Tobacco user Quit Date: long time ago Tobacco use type: Cigarette and Cigar Years Smoked: unknown e-Cigarette/Vaping Use: Never Used Second Hand Smoke Exposure: No Advance Directives Date on File: 05/06/23 service: No Current occupational status: retired Sexual orientation: Straight/Heterosexual Cognitive needs: No Hearing needs: No Vision needs: No Meds Allergies Allergy/AdvReac Type Severity Reaction Status Date / Time lisinopril [LISINOPRIL] Allergy Intermediate RASH Verified 01/30/24 10:09 Active Medications: Current Medications Acetaminophen (Acetaminophen 325 Mg Tablet) 650 mg PO Q6H PRN PRN Reason: Pain, Mild (Pain Scale 1-3) Benzonatate (Benzonatate 100 Mg Capsule) 100 mg PO TID PRN PRN Reason: Cough Docusate Sodium (Docusate Sodium 100 Mg Capsule) 100 mg PO DAILY [facility] Last Admin: 01/31/24 10:06 Dose: 100 mg Enoxaparin Sodium (Enoxaparin Sodium 40 Mg/0.4 Ml Syringe) 40 mg SUBCUT Q24H [facility] Last Admin: 01/30/24 16:53 Dose: 40 mg Furosemide (Furosemide 40 Mg/4 Ml Vial) 40 mg IVPUSH BID@0900,1800 [facility]; Protocol Last Admin: 01/31/24 09:59 Dose: 40 mg Levothyroxine Sodium (Levothyroxine Sodium 200 Mcg Tablet) 200 mcg PO DAILY@0600 [facility] Losartan Potassium (Losartan Potassium 50 Mg Tablet) 50 mg PO DAILY [facility]; Protocol Ondansetron HCl (Ondansetron Hcl 4 Mg/2 Ml Vial) 4 mg IVPUSH Q8H PRN PRN Reason: Nausea and Vomiting Sodium Chloride (0.9 % Sodium Chloride Flush 3 Ml Syringe) 3 ml IVFLUSH QSHIFT [facility] Last Admin: 01/31/24 09:58 Dose: 3 ml Spironolactone (Spironolactone 25 Mg Tablet) 25 mg PO DAILY [facility]; Protocol Home Medications ?Medication ?Instructions ?Recorded ?Confirmed ?Last Taken ?Type acetaminophen 500 mg tablet 500 mg PO BID PRN Pain 01/30/24 01/30/24 Unknown History aspirin 81 mg tablet,delayed 81 mg PO DAILY 01/30/24 01/30/24 Unknown History release levothyroxine 200 mcg tablet 200 mcg PO DAILY@0600 01/30/24 01/30/24 Unknown History Physical Exam Vital Signs: Vital Signs: Last Vital Signs Temp 98.4 F 01/31/24 07:27 Pulse 68 01/31/24 07:27 Resp 16 01/31/24 07:27 BP 155/75 H 01/31/24 07:27 Pulse Ox 92 01/31/24 07:27 O2 Del Method Room Air 01/31/24 07:27 O2 Flow Rate 2.5 01/30/24 13:15 BMI result Body Mass Index 30.3 GENERAL APPEARANCE: in no acute distress, pleasant. NECK: no carotid bruit, no significant jugular venous distention. SKIN: no suspicious lesions, warm and dry. HEART: no murmurs, regular rate and rhythm. LUNGS: clear to auscultation bilaterally. ABDOMEN: soft, nontender. EXTREMITIES: +1 edema. PERIPHERAL PULSES: equal. NEUROLOGIC: No gross deficits, AAO X 3 Objective Labs and Meds 01/30/24 10:20 01/31/24 07:00 Lab results: Laboratory Results - last 24 hr 01/30/24 01/30/24 01/31/24 10:20 11:11 07:00 Hold Purple Top SEE NOTE Sodium 145 Potassium 3.8 Chloride 107 Carbon Dioxide 26 Anion Gap 16 BUN 35 H Creatinine 1.16 Estim Creat Clear Calc 66.8 Estimated GFR > 60 Random Glucose 100 Calcium 9.0 Magnesium 2.1 Lipase 53 TSH 0.97 1.13 Urine Color Yellow Urine Appearance Clear Urine pH 5.5 Ur Specific [place] 1.010 Urine Protein Negative Urine Glucose (UA) Negative Urine Ketones Negative Urine Blood Trace H Urine Nitrite Negative Ur Leukocyte Esterase Negative Urine RBC 0-2 Urine WBC 0-5 Ur Squamous Epith Cells 0-2 Urine Bacteria None Seen Hyaline Casts 0-2 01/31/24 07:00 Hold Purple Top Sodium Potassium Chloride Carbon Dioxide Anion Gap BUN Creatinine Estim Creat Clear Calc Estimated GFR Random Glucose Calcium Magnesium Lipase TSH Cancelled Urine Color Urine Appearance Urine pH Ur Specific [place] Urine Protein Urine Glucose (UA) Urine Ketones Urine Blood Urine Nitrite Ur Leukocyte Esterase Urine RBC Urine WBC Ur Squamous Epith Cells Urine Bacteria Hyaline Casts Imaging Radiologist's impression: Impressions Abdomen/Pelvis CT 01/30/24 11:34 IMPRESSION: Gall stones. Question small amount of pericholecystic fluid. If there is concern for cholecystitis, follow-up ultrasound would be recommended. Constipation and diverticulosis of the colon. Post surgical changes following right hemicolectomy. Fleischner guidelines were followed. Chest CT 01/30/24 11:34 IMPRESSION: Limited exam due to respiratory motion artifact. Probable CHF with bilateral pleural effusions, left greater than right. There is a new 1 cm heterogeneous left upper lobe nodule and asymmetric increased perihilar airspace disease in the left upper lobe. Superimposed infectious process cannot be excluded. Chest CT imaging follow-up of left upper lobe apical nodule recommended. New small pericardial effusion. Posterior lateral right 11th rib fracture. Fleischner guidelines were followed. Abdomen Ultrasound 01/30/24 13:09 IMPRESSION: Gallstones and slightly thickened gallbladder wall. Differential would include cholecystitis, gallbladder wall changes related to liver disease, low albumin and cholangitis. If there is clinical concern of cholecystitis, HIDA scan could be considered. Hepatobiliary Scan [facility] 01/31/24 09:25 IMPRESSION: Normal biliary scan. Visualization of the gallbladder is evidence of a patent cystic duct and strong evidence against the diagnosis of acute cholecystitis. The common bile duct is patent. Liver function appears normal. Assessment and Plan (1) New onset of congestive heart failure: Status: Acute Plan 73-year-old gentleman presenting for constipation abdominal discomfort and was also diagnosed with congestive heart failure. He has chronic left bundle-branch block. His EKG in October had left bundle-branch block with biphasic T-waves. His EKG now is showing precordial T-wave inversions along with left bundle-branch block. He has not giving any history of chest discomfort or shortness of breath. Troponin levels are also normal. His BNP is elevated. Clinically he does have some features of heart failure. Continue IV diuretics. Continue losartan 50 mg daily. Adding spironolactone 25 mg daily. Echocardiography tomorrow. If echo shows cardiomyopathy then change losartan to Entresto. Will repeat EKG today. One EKG is read as atrial flutter but I think there is artifact. Thank you for allowing me to participate in the care of your patient. Please feel free to contact me if you have any questions. Procedures Date of Service Date of Service: 01/31/24
[2024-01-31] MEDS: Spironolactone 25 MG TABLET PO (11:52)
--- NOTE | 2024-01-31 15:13 | P.CONGS_ITS ---
History of Present Illness Consult details Consult date: 01/30/24 Narrative: Patient was seen yesterday in the emergency department while waiting to be admitted for consultation of nonspecific upper abdominal/lower abdominal pain. Workup demonstrated cholelithiasis and a question of choledochal lithiasis. Patient has a very unusual affect and is a poor historian. Chart was reviewed and patient evaluated. Patient has a plethora of comorbidities. COUNTS INCLUDE 234 BEDS AT THE [facility] Past Medical History Medical History Overweight (BMI 25.0-29.9) Hypothyroid Dementia Benign prostatic hyperplasia with urinary obstruction Obesity (BMI 30-39.9) Anxiety Insomnia Vitamin D deficiency Allergic rhinitis Osteoarthritis COPD (chronic obstructive pulmonary disease) Acquired hypothyroidism Benign essential hypertension Pure hypercholesterolemia Diabetes mellitus CAD (coronary artery disease) Constipation Abdominal pain, chronic, right lower quadrant GERD (gastroesophageal reflux disease) Family History Family History Father Stroke CVD (cerebrovascular disease) Mother Hypertension Surgical History Surgical History History of esophagogastroduodenoscopy (EGD) Hx of colonoscopy History of colectomy History of excision of pilonidal cyst History of arthroscopic knee surgery History of skin graft History of cardiac catheterization History of eye surgery Social History Social History Household Members: None Housing: House Do you presently have visiting nurse or other home services: Yes Unable to assess alcohol history related to: Refusing to respond Alcohol intake: former Comment: PT on 15 minute checks Patient Tobacco Use Status: Former Tobacco user Quit Date: long time ago Tobacco use type: Cigarette and Cigar Years Smoked: unknown e-Cigarette/Vaping Use: Never Used Second Hand Smoke Exposure: No Advance Directives Date on File: 05/06/23 service: No Current occupational status: retired Sexual orientation: Straight/Heterosexual Cognitive needs: No Hearing needs: No Vision needs: No Meds Allergies Allergy/AdvReac Type Severity Reaction Status Date / Time lisinopril [LISINOPRIL] Allergy Intermediate RASH Verified 01/30/24 10:09 Active Medications: Current Medications Acetaminophen (Acetaminophen 325 Mg Tablet) 650 mg PO Q6H PRN PRN Reason: Pain, Mild (Pain Scale 1-3) Benzonatate (Benzonatate 100 Mg Capsule) 100 mg PO TID PRN PRN Reason: Cough Docusate Sodium (Docusate Sodium 100 Mg Capsule) 100 mg PO DAILY [facility] Last Admin: 01/31/24 10:06 Dose: 100 mg Enoxaparin Sodium (Enoxaparin Sodium 40 Mg/0.4 Ml Syringe) 40 mg SUBCUT Q24H [facility] Last Admin: 01/30/24 16:53 Dose: 40 mg Furosemide (Furosemide 40 Mg/4 Ml Vial) 40 mg IVPUSH BID@0900,1800 [facility]; Protocol Last Admin: 01/31/24 09:59 Dose: 40 mg Levothyroxine Sodium (Levothyroxine Sodium 200 Mcg Tablet) 200 mcg PO DAILY@0600 [facility] Losartan Potassium (Losartan Potassium 50 Mg Tablet) 50 mg PO DAILY [facility]; Protocol Ondansetron HCl (Ondansetron Hcl 4 Mg/2 Ml Vial) 4 mg IVPUSH Q8H PRN PRN Reason: Nausea and Vomiting Sodium Chloride (0.9 % Sodium Chloride Flush 3 Ml Syringe) 3 ml IVFLUSH QSHIFT [facility] Last Admin: 01/31/24 09:58 Dose: 3 ml Spironolactone (Spironolactone 25 Mg Tablet) 25 mg PO DAILY [facility]; Protocol Last Admin: 01/31/24 11:52 Dose: 25 mg Home Medications ?Medication ?Instructions ?Recorded ?Confirmed ?Last Taken ?Type acetaminophen 500 mg tablet 500 mg PO BID PRN Pain 01/30/24 01/30/24 Unknown History aspirin 81 mg tablet,delayed 81 mg PO DAILY 01/30/24 01/30/24 Unknown History release levothyroxine 200 mcg tablet 200 mcg PO DAILY@0600 01/30/24 01/30/24 Unknown History Physical Exam 2 Vital Signs: Vital Signs: Last Vital Signs Temp 97.8 F 01/31/24 11:41 Pulse 58 01/31/24 11:41 Resp 16 01/31/24 11:41 BP 130/63 01/31/24 11:41 Pulse Ox 96 01/31/24 11:41 O2 Del Method Room Air 01/31/24 11:41 O2 Flow Rate 2.5 01/30/24 13:15 BMI result Body Mass Index 30.3 GI: Other: Abdomen moderately corpulent/mildly distended. No evidence of epigastric or upper abdominal tenderness. Patient has mild suprapubic tenderness but no evidence of any guarding, rebound, rigidity. Results Labs 01/30/24 10:20 01/31/24 07:00 Labs: Abnormal lab results 01/31/24 Range/Units 07:00 BUN 35 H (9-16) mg/dL BMP 01/31/24 07:00 Sodium 145 Potassium 3.8 Chloride 107 Carbon Dioxide 26 BUN 35 H Creatinine 1.16 Calcium 9.0 Urine 01/30/24 Range/Units 11:11 Urine Color Yellow Urine Appearance Clear Urine pH 5.5 (5.0-9.0) Ur Specific [place] 1.010 (1.005-1.025) Urine Protein Negative (Neg-Trace) mg/dL Urine Glucose (UA) Negative (Negative) mg/dL All other labs normal. Assessment and Plan (1) Abdominal pain: Status: Inactive Plan Patient is to be admitted for general restorative measures and is scheduled for HIDA scan for tomorrow. Further interventions and studies will be directed by the patient's clinical course and the results of the above-mentioned scan. Procedures Date of Service Date of Service: 01/31/24
--- NOTE | 2024-01-31 15:15 | P.PNGS_ITS ---
Subjective Subjective Date of Service: 01/31/24 Interval history: Patient has no upper abdominal complaints. He states he is passing flatus and stool. HIDA scan was within normal limits. Physical Exam 2 Vital Signs: Vital Signs: Last Vital Signs Temp 97.8 F 01/31/24 11:41 Pulse 58 01/31/24 11:41 Resp 16 01/31/24 11:41 BP 130/63 01/31/24 11:41 Pulse Ox 96 01/31/24 11:41 O2 Del Method Room Air 01/31/24 11:41 O2 Flow Rate 2.5 01/30/24 13:15 BMI result Body Mass Index 30.3 GI: Other: Ms. Soft, corpulent, no evidence of any upper abdominal or epigastric tenderness or Umanzor's sign. Patient has mild suprapubic tenderness but no evidence of any guarding, rebound, or rigidity. Objective Data Active Medications Acetaminophen (Acetaminophen 325 Mg Tablet) 650 mg PO Q6H PRN PRN Reason: Pain, Mild (Pain Scale 1-3) Benzonatate (Benzonatate 100 Mg Capsule) 100 mg PO TID PRN PRN Reason: Cough Docusate Sodium (Docusate Sodium 100 Mg Capsule) 100 mg PO DAILY [facility] Last Admin: 01/31/24 10:06 Dose: 100 mg Documented By: BRANDY Enoxaparin Sodium (Enoxaparin Sodium 40 Mg/0.4 Ml Syringe) 40 mg SUBCUT Q24H [facility] Last Admin: 01/30/24 16:53 Dose: 40 mg Documented By: SANGEETA Furosemide (Furosemide 40 Mg/4 Ml Vial) 40 mg IVPUSH BID@0900,1800 [facility]; Protocol Last Admin: 01/31/24 09:59 Dose: 40 mg Documented By: BRANDY Levothyroxine Sodium (Levothyroxine Sodium 200 Mcg Tablet) 200 mcg PO DAILY@0600 [facility] Losartan Potassium (Losartan Potassium 50 Mg Tablet) 50 mg PO DAILY [facility]; Protocol Ondansetron HCl (Ondansetron Hcl 4 Mg/2 Ml Vial) 4 mg IVPUSH Q8H PRN PRN Reason: Nausea and Vomiting Sodium Chloride (0.9 % Sodium Chloride Flush 3 Ml Syringe) 3 ml IVFLUSH QSHIFT [facility] Last Admin: 01/31/24 09:58 Dose: 3 ml Documented By: BRANDY Spironolactone (Spironolactone 25 Mg Tablet) 25 mg PO DAILY [facility]; Protocol Last Admin: 01/31/24 11:52 Dose: 25 mg Documented By: BRANDY Labs 01/30/24 10:20 01/31/24 07:00 Labs: Laboratory Results - last 24 hr 01/30/24 01/31/24 01/31/24 10:20 07:00 07:00 Hold Purple Top SEE NOTE Anion Gap 16 Estim Creat Clear Calc 66.8 Estimated GFR > 60 Random Glucose 100 Calcium 9.0 Magnesium 2.1 TSH 0.97 1.13 Cancelled Microbiology Microbiology Results: Microbiology 01/30/24 10:27 Blood Culture - Preliminary Blood - Venous No growth after 24 hours. 01/30/24 10:29 Blood Culture - Preliminary Blood - Venous No growth after 24 hours. Procedures Date of Service Date of Service: 01/31/24 Progress Note: A&P Assessment and plan (1) Abdominal pain, chronic, right lower quadrant: Status: Acute Plan At present, no acute surgical issues. Will follow up p.r.n.. Time Spent With Patient Time: Total time managing care of this patient today ____ minutes. Quality Stroke Does the patient have a stroke diagnosis?: No VTE Prior VTE?: No VTE Risk Level:: Medical - moderate - high VTE Device Contraindication: Treatment Not Indicated VTE Drug Contraindication: N/A - Med Ordered
[2024-01-31] MEDS: Enoxaparin Sodium 40 MG/0.4 ML SYRINGE SUBCUT (17:23)
[2024-02-01 02:40] VITALS: BP 141/72; PULSE 70; RESP 18; TEMP 36.1; O2SAT 94
--- NOTE | 2024-02-01 07:00 | CA_ITS ---
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 The visually estimated ejection fraction is between 30-35%. - Evidence suggests grade II (moderate) diastolic dysfunction. - No obvious valvular pathology seen on this study. - Small to moderate pericardial effusion, most prominent over the left ventricle and right atrium. Findings Procedure Information Contrast agent, definity, is being given per protocol without apparent complications. Left Ventricle Normal left ventricular cavity size. There is mildly increased left ventricular wall thickness. The left ventricular systolic function is moderately decreased. The visually estimated ejection fraction is between 30 35%. There is paradoxical septal motion consistent with a left bundle branch block. Evidence suggests grade II (moderate) diastolic dysfunction. Right Ventricle Mildly increased right ventricular cavity size. There is normal right ventricular systolic function. Atria The left atrium is moderately dilated. The right atrium is normal in size. Aortic Valve There is a normal trileaflet aortic valve. There is no aortic valve stenosis. There is no aortic valve regurgitation. Mitral Valve The mitral valve appears normal. There is trace mitral valve regurgitation. There is no mitral valve stenosis. Pulmonic Valve The pulmonic valve is likely normal. Tricuspid Valve Normal tricuspid valve structure. There is trace tricuspid valve regurgitation. There is no evidence of pulmonary hypertension. Great Vessels The asc aorta is normal in size. Venous The inferior vena cava is dilated and collapses less than 50% with inspiration. Pericardium/Pleural There are no definitive echocardiographic findings of tamponade physiology. Small to moderate pericardial effusion, most prominent over the left ventricle and right atrium. Prior Study Comparison Changes noted compared to prior study dated: 02/01/2015. Decrease in LVEF. Pericardial effusion previously described as trivial. Recommendations, Care & Conclusions No obvious valvular pathology seen on this study. Measurements 2D Linear Measurements IVSd: 1.15 0.6-0.9/0.6-1.0 cm LVIDd: 6.11 3.9-5.3/4.2-5.9 cm LVIDd Index: 2.80 2.4-3.2/2.2-3.1 cm/m2 LVIDs: 5.07 2.0-3.6 cm LVPWd: 1.38 0.7-1.1 cm LA Diam: 4.50 2.7-3.8/3.0-4.0 cm LAIDs Index: 2.06 1.5-2.3 cm/m2 LV Mass: 433.55 67-162/88-224 g LV Mass Index: 198.88 43-95/49-115 g/m2 LVOT Diam: 2.30 3.0+(-)1.3 cm 2D Systolic Function EF 4C: 32.80 >55% EF 2C: 43.70 >55% EF BiP: 37.60 >55% Mitral Valve MV Pk E: 1.10 MV PK A: 0.91 MV Decel Time: 259.00 E/A: 1.20 E'Lateral: 4.68 E'Medial: 3.92 E/E' Med: 28.10 E/E' Lat: 23.50 PHT: 76.00 MVA PHT: 2.89 Decel Fallon: 4.25 Aortic Valve AoV Pk Stef: 1.36 AoV Mn Stef: 1.00 AoV VTI: 0.30 AoV Pk Grad: 7.00 Aov Mn Grad: 4.00 SHERIE Cont.VTI: 3.02 LVOT LVOT Pk Stef: 0.95 LVOT Mn Stef: 0.67 LVOT VTI: 0.22 LVOT Pk Grad: 4.00 LVOT Mn Grad: 2.00 LVOT Diam: 2.30 LVOT Area: 4.15 Diastolic Function MV Pk E: 1.10 MV Pk A: 0.91 E/A: 1.20 E'Medial: 3.92 E/E' Med: 28.10 E' Laterial: 4.68 E/E' Lat: 23.50 Right Ventricle TAPSE (mm): 22.40 TVS' Stef: 12.50 Tricuspid Valve TR Pk Stef: 1.83 TR Pk Grad: 13.00 RA Press: 15.00 RVSP: 28.00 Great Vessels Aorta Sinus of Valsalva: 3.60 2.0-3.5 cm Ao Asc: 3.20 2.1-3.4 cm Pulmonary Valve PV Pk Stef: 1.14 Peak PV Grad: 5.00 Updated in Other Vendor System with Status of Final Ash Bolden MD electronically signed on 02/01/2024 12:16:37 PM with status of Final
--- NOTE | 2024-02-01 07:10 | PC.NURSE ---
patient refused most nursing care, am meds and labs.
[2024-02-01 07:40] VITALS: BP 159/71; PULSE 71; RESP 18; TEMP 37.2; O2SAT 97
[2024-02-01] MEDS: Docusate Sodium 100 MG CAPSULE PO (09:27)
[2024-02-01] MEDS: Spironolactone 25 MG TABLET PO (09:27)
[2024-02-01] MEDS: Losartan Potassium 50 MG TABLET PO (09:27)
[2024-02-01] MEDS: Furosemide 40 MG/4 ML VIAL IVPUSH (09:27)
[2024-02-01] MEDS: Levothyroxine Sodium 200 MCG TABLET PO (09:28)
[2024-02-01] MEDS: 0.9 % Sodium Chloride Flush 3 ML SYRINGE IVFLUSH ×2 (09:28→11:55)
--- NOTE | 2024-02-01 10:45 | P.PNIM_ITS ---
Subjective Subjective Date of Service: 02/01/24 Interval History: sob improved Physical Exam 2 Vital Signs: Vital Signs: Last Vital Signs Temp 98.9 F 02/01/24 07:40 Pulse 71 02/01/24 07:40 Resp 18 02/01/24 07:40 BP 159/71 H 02/01/24 07:40 Pulse Ox 97 02/01/24 07:40 O2 Del Method Room Air 02/01/24 07:40 O2 Flow Rate 2.5 01/30/24 13:15 BMI result Body Mass Index 30.3 GI: Other: Ms. Soft, corpulent, no evidence of any upper abdominal or epigastric tenderness or Umanzor's sign. Patient has mild suprapubic tenderness but no evidence of any guarding, rebound, or rigidity. Objective Data Active Medications Acetaminophen (Acetaminophen 325 Mg Tablet) 650 mg PO Q6H PRN PRN Reason: Pain, Mild (Pain Scale 1-3) Benzonatate (Benzonatate 100 Mg Capsule) 100 mg PO TID PRN PRN Reason: Cough Docusate Sodium (Docusate Sodium 100 Mg Capsule) 100 mg PO DAILY [facility] Last Admin: 02/01/24 09:27 Dose: 100 mg Documented By: CHUY Enoxaparin Sodium (Enoxaparin Sodium 40 Mg/0.4 Ml Syringe) 40 mg SUBCUT Q24H [facility] Last Admin: 01/31/24 17:23 Dose: 40 mg Documented By: BRANDY Furosemide (Furosemide 40 Mg/4 Ml Vial) 40 mg IVPUSH BID@0900,1800 [facility]; Protocol Last Admin: 02/01/24 09:27 Dose: 40 mg Documented By: CHUY Levothyroxine Sodium (Levothyroxine Sodium 200 Mcg Tablet) 200 mcg PO DAILY@0600 [facility] Last Admin: 02/01/24 09:28 Dose: 200 mcg Documented By: CHUY Losartan Potassium (Losartan Potassium 50 Mg Tablet) 50 mg PO DAILY [facility]; Protocol Last Admin: 02/01/24 09:27 Dose: 50 mg Documented By: CHUY Ondansetron HCl (Ondansetron Hcl 4 Mg/2 Ml Vial) 4 mg IVPUSH Q8H PRN PRN Reason: Nausea and Vomiting Sodium Chloride (0.9 % Sodium Chloride Flush 3 Ml Syringe) 3 ml IVFLUSH QSHIFT [facility] Last Admin: 02/01/24 09:28 Dose: 3 ml Documented By: CHUY Spironolactone (Spironolactone 25 Mg Tablet) 25 mg PO DAILY [facility]; Protocol Last Admin: 02/01/24 09:27 Dose: 25 mg Documented By: CHUY Labs 01/30/24 10:20 01/31/24 07:00 Microbiology Microbiology Results: Microbiology 01/30/24 10:27 Blood Culture - Preliminary Blood - Venous No growth after 24 hours. 01/30/24 10:29 Blood Culture - Preliminary Blood - Venous No growth after 24 hours. Assessment and Plan (1) New onset of congestive heart failure: Status: Acute Plan 73M PMH coronary disease, hypertension, hyperlipidemia, COPD, diabetes, hypothyroid, GERD, BPH, parkinsonism, bipolar presented with abdominal pain and constipation, found to have bilateral 3+ pitting edema Acute on chronic unspecified CHF diuresed well, will change to po lasix Follow-up echo Monitor electrolytes Cardio appreciated Right upper quadrant abdominal pain with questionable cholecystitis on ultrasound Likely congestion from CHF hida negative - cholecystitits ruled out Hypertension Losartan Hypothyroid Synthroid Bipolar disorder Patient is off medications at this time DVT prophylaxis with Lovenox Full Code Reason for continued hospitalization: awaiting echo Quality Stroke Does the patient have a stroke diagnosis?: No VTE Prior VTE?: No VTE Risk Level:: Medical - moderate - high VTE Device Contraindication: Treatment Not Indicated VTE Drug Contraindication: N/A - Med Ordered
[2024-02-01 10:54] VITALS: BP 120/56; PULSE 55; RESP 18; TEMP 36.1; O2SAT 95
--- NOTE | 2024-02-01 11:03 | PM.PNCARD ---
Subjective Subjective Date of Service: 02/01/24 Interval history: Patient states he feels fine. No specific cardiac complaints. Review of Systems Review of Systems Yes all other systems are reviewed and are negative Constitutional: Reports as per HPI and Reports no additional constitutional complaints Eyes: Reports as per HPI and Denies no additional eye complaints Denies system reviewed and no additional complaints, except as documented and Reports as per HPI Cardiovascular: Reports as per HPI, Reports no additional cardiovascular complaints, Denies acrocyanosis, Denies cool extremities, Denies chest pain, Denies leg edema, Denies lightheadedness, Denies palpitations and Denies dyspnea Respiratory: Reports as per HPI, Denies no additional respiratory complaints and Denies dyspnea Gastrointestinal: Reports as per HPI and Denies no additional gastrointestinal complaints Genitourinary: Reports no additional male genitourinary complaints and Reports as per HPI Musculoskeletal: Reports no additional musculoskeletal complaints and Reports as per HPI Skin/Breast: Reports system reviewed and no additional complaints, except as docu Reports system reviewed and no additional complaints, except as documented and Reports as per HPI Psychiatric: Reports no additional psychiatric complaints and Reports as per HPI Endocrine: Reports no additional endocrine complaints, Reports as per HPI and Denies palpitations Hematologic/Lymphatic: Reports no additional hematologic/lymphatic complaints and Reports as per HPI Allergic/Immunologic: Reports no additional allergic/immunologic complaints and Reports as per HPI Physical Exam Vital Signs: Last Vital Signs Temp 97.0 F 02/01/24 10:54 Pulse 55 02/01/24 10:54 Resp 18 02/01/24 10:54 BP 120/56 L 02/01/24 10:54 Pulse Ox 95 02/01/24 10:54 O2 Del Method Room Air 02/01/24 10:54 O2 Flow Rate 2.5 01/30/24 13:15 BMI result Body Mass Index 30.3 Const General: comfortable and no acute distress Orientation/consciousness: patient oriented x3 HEENT Other: Unremarkable Head: Yes normal to inspection Neck Neck: Yes normal visual inspection Chest Chest palpation & inspection: normal inspection of the chest Resp Auscultation: clear to auscultation bilaterally Cardio Palpation: normal PMI Heart sounds: S1 normal heart sound present, S2 normal heart sound present, no gallops, no murmurs and no rubs GI Palpation (GI): Soft to palpation Back/Spine/Pelvis Other: unremarkable Skin General skin exam: no rashes or lesions noted Neuro General: patient oriented x3 Extrem General: Yes normal to inspection Psych Mental Status: mental status grossly normal Objective Labs and Meds 01/30/24 10:20 01/31/24 07:00 Progress Note: A&P Assessment and plan (1) New onset of congestive heart failure: Status: Acute (2) LBBB (left bundle branch block): Status: Acute Plan Patient without any overt symptoms. Chronic left bundle-branch block- since 2019, elevated BNP. Echocardiogram is pending. Further plan, based on the findings. He is on oral diuretics; losartan; spironolactone at this time. Time Spent With Patient Time: Total time managing care of this patient today ____ minutes. Progress Note: Quality Stroke Does the patient have a stroke diagnosis?: No Procedures Date of Service Date of Service: 02/01/24
--- NOTE | 2024-02-01 11:35 | PC.NURSE ---
Assumed care of patient at this time.
[2024-02-01 15:15] VITALS: BP 126/61; PULSE 60; RESP 18; TEMP 36.8; O2SAT 97
[2024-02-01] MEDS: Enoxaparin Sodium 40 MG/0.4 ML SYRINGE SUBCUT (16:09)
[2024-02-01 20:00] VITALS: BP 146/71; PULSE 58; RESP 19; TEMP 36.9; O2SAT 98
[2024-02-02] VITALS: BP 152/72; PULSE 63; RESP 18; TEMP 36.6; O2SAT 95
[2024-02-02] MEDS: 0.9 % Sodium Chloride Flush 3 ML SYRINGE IVFLUSH ×2 (02:17→07:35)
[2024-02-02 03:49] VITALS: BP 115/57; PULSE 55; RESP 20; TEMP 36.1; O2SAT 95
[2024-02-02 06:54] LABS: Hematocrit 41.6 % (42.0-52.0); Hemoglobin 13.6 g/dl (14.0-18.0); Mean Corpuscular HGB Conc 32.7 g/dl (31.0-36.0); Mean Corpuscular Hemoglobin 31.1 pg (27.0-33.0); Mean Corpuscular Volume 95.2 fL (80.0-98.0); Mean Platelet Volume 9.1 fL (9.4-12.4); Platelet Count 248 X10*3/uL (160-400); Red Blood Count 4.37 X10*6/uL (4.60-5.80); Red Cell Distribution Width 14.6 % (11.0-16.0); White Blood Count 6.2 X10*3/uL (4.8-10.8)
[2024-02-02 07:14] LABS: Anion Gap 12 (12-20); Blood Urea Nitrogen 31 mg/dL (9-16); Calcium 8.9 mg/dL (8.4-10.2); Carbon Dioxide 29 mmol/L (22-29); Chloride 104 mmol/L (96-108); Creatinine Clr Calc Pharmacy 57.4; Estimated Glomerular Filt Rate 52; Glucose Fasting 121 mg/dL (60-99); Sodium 141 mmol/L (135-145)
[2024-02-02] MEDS: Losartan Potassium 50 MG TABLET PO (07:28)
[2024-02-02] MEDS: Acetaminophen 325 MG TABLET 650 MG PO (07:28)
[2024-02-02] MEDS: Spironolactone 25 MG TABLET PO (07:28)
[2024-02-02] MEDS: Docusate Sodium 100 MG CAPSULE PO (07:29)
[2024-02-02] MEDS: Furosemide 40 MG TABLET PO (07:29)
[2024-02-02] MEDS: Levothyroxine Sodium 200 MCG TABLET PO (07:29)
[2024-02-02 07:35] VITALS: BP 124/57; PULSE 53; RESP 20; TEMP 36.7; O2SAT 97
--- NOTE | 2024-02-02 10:48 | PM.PNCARD ---
Subjective Subjective Date of Service: 02/02/24 Interval history: Patient states he feels fine. No specific complaints. Not short of breath or having any other cardiac complaints at this time. Review of Systems Review of Systems Yes all other systems are reviewed and are negative Constitutional: Reports as per HPI and Reports no additional constitutional complaints Eyes: Reports as per HPI and Denies no additional eye complaints Denies system reviewed and no additional complaints, except as documented and Reports as per HPI Cardiovascular: Reports as per HPI, Reports no additional cardiovascular complaints, Denies acrocyanosis, Denies cool extremities, Denies chest pain, Denies leg edema, Denies lightheadedness, Denies palpitations and Denies dyspnea Respiratory: Reports as per HPI, Denies no additional respiratory complaints and Denies dyspnea Gastrointestinal: Reports as per HPI and Denies no additional gastrointestinal complaints Genitourinary: Reports no additional male genitourinary complaints and Reports as per HPI Musculoskeletal: Reports no additional musculoskeletal complaints and Reports as per HPI Skin/Breast: Reports system reviewed and no additional complaints, except as docu Reports system reviewed and no additional complaints, except as documented and Reports as per HPI Psychiatric: Reports no additional psychiatric complaints and Reports as per HPI Endocrine: Reports no additional endocrine complaints, Reports as per HPI and Denies palpitations Hematologic/Lymphatic: Reports no additional hematologic/lymphatic complaints and Reports as per HPI Allergic/Immunologic: Reports no additional allergic/immunologic complaints and Reports as per HPI Physical Exam Vital Signs: Last Vital Signs Temp 98.1 F 02/02/24 07:35 Pulse 53 02/02/24 07:35 Resp 20 02/02/24 07:35 BP 124/57 L 02/02/24 07:35 Pulse Ox 97 02/02/24 07:35 O2 Del Method Room Air 02/02/24 07:35 O2 Flow Rate 2.5 01/30/24 13:15 BMI result Body Mass Index 30.3 Const General: comfortable and no acute distress Orientation/consciousness: patient oriented x3 HEENT Other: Unremarkable Head: Yes normal to inspection Neck Neck: Yes normal visual inspection Chest Chest palpation & inspection: normal inspection of the chest Resp Auscultation: clear to auscultation bilaterally Cardio Palpation: normal PMI Heart sounds: S1 normal heart sound present, S2 normal heart sound present, no gallops, no murmurs and no rubs GI Palpation (GI): Soft to palpation Back/Spine/Pelvis Other: unremarkable Skin General skin exam: no rashes or lesions noted Neuro General: patient oriented x3 Extrem General: Yes normal to inspection Psych Mental Status: mental status grossly normal Objective Labs and Meds 02/02/24 06:42 02/02/24 06:42 Lab results: Laboratory Results - last 24 hr 02/02/24 06:42 WBC 6.2 RBC 4.37 L Hgb 13.6 L Hct 41.6 L MCV 95.2 MCH 31.1 MCHC 32.7 RDW 14.6 Plt Count 248 MPV 9.1 L Absolute Nucleated RBC 0.000 Nucleated RBC % (auto) 0.0 Sodium 141 Potassium 4.0 Chloride 104 Carbon Dioxide 29 Anion Gap 12 BUN 31 H Creatinine 1.35 Estim Creat Clear Calc 57.4 Estimated GFR 52 Fasting Glucose 121 H Calcium 8.9 Progress Note: A&P Assessment and plan (1) Acute combined systolic and diastolic congestive heart failure: Status: Acute (2) LBBB (left bundle branch block): Status: Acute Plan Patient without any overt symptoms. Chronic left bundle-branch block- since 2019, elevated BNP. Echocardiogram as today with LVEF of 30-35%. Moderate diastolic dysfunction. [id number] pericardial effusion. Compared to prior study from 2015, there is decrease in LVEF. For medications, on losartan and spironolactone. On oral diuretics. May use small dose of Coreg. Not clear if insurance will approve Jardiance or Farxiga. May optimize meds as an outpatient. Will call for appointment. Time Spent With Patient Time: Total time managing care of this patient today ____ minutes. Progress Note: Quality Stroke Does the patient have a stroke diagnosis?: No Procedures Date of Service Date of Service: 02/02/24
--- NOTE | 2024-02-02 10:59 | P.DS_ITS ---
DS: Providers Provider Date of Service: 02/02/24 Date of admission: 01/30/24 16:20 Primary care physician: Samuel Schnieder MD Consults: 01/30/24 14:47 Consult to General Surgery [place]ine [place] [facility] [place] [facility] [facility] Reason for consultation: RUQ pain 01/30/24 16:25 Consult to Cardiology Routine Consulting Provider: [facility] [facility] Reason for consultation: New onset CHF DS: Diagnosis Discharge Diagnosis (1) Acute combined systolic and diastolic congestive heart failure: Status: Acute (2) LBBB (left bundle branch block): Status: Acute DS: Summary Hospital Course Hospital Course: from initial hpi: 73-year-old male with a PMH significant for?CAD s/p cardiac cath in 2019, HTN, HLD, COPD, diet-controlled type 2 diabetes, hypothyroidism, GERD, BPH, parkinsonism likely secondary to exposure to antipsychotic medications, bipolar disorder type 1 with delusions and paranoia who presents to the ED reportedly for evaluation abdominal pain and constipation. Patient has a long history of psychiatric admissions, including 3 admissions [facility] psych here at the hospital with last admission from 11/22/2021-01/05/2022. Patient likely has some component of underlying dementia or diffuse cerebral degeneration. Patient is a poor historian and HPI very difficult to obtain as patient lacks details and specifics concerning his symptoms, and story seems to continually change. For instance, when asked about last bowel movement patient initially states had one ?a while ago? though could not be more specific. When asked to clarify if it was a few days or weeks ago pt then reports he thinks he had one this morning though I might be wrong . Also reports right-sided abdominal pain for an unspecified amount of time. Currently says he is pain-free. Denies any chest pain or pressure. Possibly had some SOB when he walked to the mailbox the other day but unclear if SOB is new, worsening, or chronic. Pt uncertain if lower leg edema is worse or at baseline. Of note, pt stopped on his own taking all of his home prescription medications for over four months from through 12/30/2023. He currently has resumed only his levothyroxine, losartan, aspirin, and p.r.n. Tylenol. In the ED pt was hypertensive up to 158/92 and satting as low as 88% RA. Labs were significant for elevated BNP of 1103, otherwise grossly unremarkable and WNL for patient. UA negative for UTI. CXR showed enlarged heart with question of mild pulmonary edema versus pneumonia with likely small left pleural effusion. KUB found stool throughout the colon suggestive of constipation. CT of chest limited due to respiratory motion artifact, but showed probable CHF with bilateral pleural effusions, left greater than right. Also found 1 cm heterogeneous left upper lobe nodule and asymmetric increased perihilar airspace disease in left upper lobe, superimposed infectious process can not be excluded. CT of abdomen and pelvis found gallstones with question of small amount pericholecystic fluid. Abdominal ultrasound found gallstones with slightly thickened gallbladder wall suggestive possible cholecystitis. EKG demonstrated normal sinus rhythm with left bundle branch block but no evidence of significant ST elevations or depressions. Pt was treated with Lasix 40mg IV x2 doses. Pt will be admitted to the hospital for treatment and further evaluation of new onset CHF and question of cholecystitis. hospital course: Patient was admitted for acute systolic CHF. He was given IV Lasix and diuresed well. Shortness of breath resolved. Echocardiogram showed reduced EF, grade 2 diastolic dysfunction, moderate pericardial effusion. Was seen by Cardiology recommended transitioning to p.o. Lasix, continuing losartan, starting Aldactone and Farxiga. Due to sinus bradycardia patient is unable to tolerate beta- heriberto. Patient initially presented with right upper quadrant abdominal pain with question cholecystitis on ultrasound, however this was likely congestion from CHF, HIDA scan was negative and cholecystitis was ruled out. For hypertension is continued on losartan and Aldactone. For hypothyroidism was continued on Synthroid. For bipolar disorder patient is currently off medications and mood is stable. Patient is feeling better will be discharged home. pt would benefit from increase in home health hours. Time Attestation Discharge Coordination Time (in mins): 35 Quality: Safe Use of Opioids Does Pt have an Active Cancer Diagnosis on the Problem List?: No Quality: Stroke Does the patient have a stroke diagnosis?: No Physical Exam Vital Signs: Vital Signs: Last Vital Signs Temp 98.1 F 02/02/24 07:35 Pulse 53 02/02/24 07:35 Resp 20 02/02/24 07:35 BP 124/57 L 02/02/24 07:35 Pulse Ox 97 02/02/24 07:35 O2 Del Method Room Air 02/02/24 07:35 O2 Flow Rate 2.5 01/30/24 13:15 BMI result Body Mass Index 30.3 Const: General: comfortable and no acute distress Orientation/consciousness: patient oriented x3 HEENT: Other: Unremarkable Head: Yes normal to inspection Neck: Neck: Yes normal visual inspection Chest: Chest palpation & inspection: normal inspection of the chest Resp: Auscultation: clear to auscultation bilaterally Cardio: Palpation: normal PMI Heart sounds: S1 normal heart sound present, S2 normal heart sound present, no gallops, no murmurs and no rubs GI: Palpation (GI): Soft to palpation Back/Spine/Pelvis: Other: unremarkable Skin: General skin exam: no rashes or lesions noted Neuro: General: patient oriented x3 Extrem: General: Yes normal to inspection Psych: Mental Status: mental status grossly normal DS: Data Data Completed and Pending Labs on day of discharge: Laboratory Results - last 24 hr 02/02/24 06:42 WBC 6.2 RBC 4.37 L Hgb 13.6 L Hct 41.6 L MCV 95.2 MCH 31.1 MCHC 32.7 RDW 14.6 Plt Count 248 MPV 9.1 L Absolute Nucleated RBC 0.000 Nucleated RBC % (auto) 0.0 Sodium 141 Potassium 4.0 Chloride 104 Carbon Dioxide 29 Anion Gap 12 BUN 31 H Creatinine 1.35 Estim Creat Clear Calc 57.4 Estimated GFR 52 Fasting Glucose 121 H Calcium 8.9 Preliminary micro results at discharge 01/30/24 10:27 Blood Culture - Preliminary Blood - Venous No growth after 48 hours. 01/30/24 10:29 Blood Culture - Preliminary Blood - Venous No growth after 48 hours. Discharge Plan Discharge Anticipated Discharge Date/Time: 02/02/24 10:55 Patient Disposition: Home, Self-Care Discharge Diagnosis: chf Referrals: Samuel Schneider MD [Primary Care Provider] - 1 Week Ash Bolden MD [Physician] - 1 Week (Someone will be in contact with you to schedule an appointment. ) Discharge Medications: New furosemide 40 mg Tablet 40 mg PO DAILY Qty: 90 0RF Protocol: Hold for SBP< HOLD for SBP < : 90 spironolactone 25 mg Tablet 25 mg PO DAILY Qty: 90 0RF Protocol: Hold for SBP< HOLD for SBP < : 90 dapagliflozin propanediol [Farxiga] 10 mg tablet 10 mg PO DAILY Qty: 90 0RF Continued losartan 50 mg tablet 50 mg PO DAILY 90 Days Qty: 90 0RF Protocol: Hold for SBP< HOLD for SBP < : 90 aspirin 81 mg Tablet,Delayed Release (Dr/Ec) 81 mg PO DAILY acetaminophen 500 mg Tablet 500 mg PO BID PRN (Reason: Pain) levothyroxine 200 mcg tablet 200 mcg PO DAILY@0600 Discharge Orders: Discharge Order (Routine); Ordered 02/02/24 Ordered By: Ponce Mackey Diet: Advance to usual diet Activity on Discharge: As tolerated Stand Alone Forms: Patient Portal Discharge page Print Language: Guyanese Care Plan Goals: manage chf Health Concerns: chf Plan of Treatment: meds as prescribed, follow up with cardiology Assessment: see above
[2024-02-02 11:00] VITALS: BP 130/61; PULSE 55; RESP 20; TEMP 36.4; O2SAT 98
--- NOTE | 2024-02-02 11:55 | W.MHC.F2F ---
Service Date Service Date: 02/02/24 Encounter Date of encounter: 02/02/24 Reasons for Services Signs and symptoms assessed: farhat poor insight Reason for custodial: medication management, medication treatment and teach disease management Homebound: Leaving the home is medically contraindicated at this time without the asist of a device and/or another person due th the listed conditions above and below. Reason homebound: cognitively impaired / unsafe Certification: Based on the above findings, I certify that this patient is confined to the home and needs intermittent custodial care, physical therapy and/or speech therapy, or continues to need occupational therapy. The patient is under my care, and I have initiated the establishment of the plan of care. The patient will be followed by a physician who will periodically review the plan of care. Time Spent With Patient Time: Total time managing care of this patient today ____ minutes.
--- NOTE | 2024-02-02 11:55 | MHC.CM.PN ---
Addendum entered by Ann Schneider RN 02/02/24 13:38: [facility] TO PROVIDE MED MANAGEMENT FOR PT. Original Note: PT MEDICALLY CLEARED FOR DC HOME, CM DISCUSSED W/PT'S MOTHER WHO ASSISTS PT WITH NEEDS AND SHE WOULD LIKE VNA SERVICES FOR ASSISTANCE W/MED MANAGEMENT, PT HAS STRAIGHT MEDICARE AND MEDICAID AND WOULD QUALIFY, REFERRAL TO BE PLACED, [facility] NOTIFIED OF DC AND REQUEST FOR INCREASE IN HRS, PT'S MOM NOEMI FOR TRANSPORT AT APPROX 3PM AFTER HER APPT.
--- NOTE | 2024-02-03 15:00 | MHC.CM.PN ---
POST DISCHARGE NOTE, CM RECEIVED CALL FROM PT'S MOTHER NOEMI (REPORTS SHE IS 96YO NOT 89YO), NOEMI REPORTS THE NURSE FROM [facility] WAS THERE THIS AM AND ASSESSED PT HOWEVER DID NOT SET UP PT'S MEDS AND THEN CALLED HER AND TOLD HER THAT THEY COULD NOT PROVIDE SERVICES FOR PT AND WAS ASKING THIS CM FOR ASSISTANCE W/VNA. CM HAS REACHED OUT TO OTHER VNA'S THAT WERE INTERESTED LIKE [facility] AND MESSAGE LEFT W/[employer] AND AWAITING CALL BACK. CM CONTACTED [facility] AND THEY REPORTED THE NURSE DID NOT FEEL PT HAS ENOUGH SUPPORTS AT HOME AND DID NOT FEEL PT COULD BE AT HOME INDEPENDENTLY W/OUT MORE CARE AT HOME. THEY ARE AWARE [facility] IS WORKING ON PROVIDING EXTRA SUPPORTS AT HOME. CM WILL REACH OUT TO PCP WHOM PT'S MOTHER NOEMI REPORTS HAS NOT BEEN HELPFUL, NOEMI ALSO REPORTS PT'S DTR IDALIA DOES NOT WANT TO BE INVOLVED AND WAS ANGRY THAT SHE GAVE CM HER CONTACT NUMBER. ELDER AT RISK TO BE FILED W/[facility].
== END 2024-02-02 16:55 | disposition home health service (06) | DRG 291 ==
LOC: HO.ED 11:15 → HO.EDOVER 16:42 → HO.IMC 22:28
PROVIDERS: Physician Assistant; Admitting Provider Student in an Organized Health Care Education/Training Program; Emergency Provider Emergency Medicine Emergency Medical Services; PCP Internal Medicine; Visit Provider Internal Medicine
DX: I11.0 Hypertensive heart disease with heart failure (principal); I50.41 Acute combined systolic (congestive) and diastolic (congestive) heart failure; G21.11 Neuroleptic induced parkinsonism; I25.10 Atherosclerotic heart disease of native coronary artery without angina pectoris; E03.9 Hypothyroidism, unspecified; T43.505A Adverse effect of unspecified antipsychotics and neuroleptics, initial encounter; I44.7 Left bundle-branch block, unspecified; E78.5 Hyperlipidemia, unspecified; J44.9 Chronic obstructive pulmonary disease, unspecified; E11.9 Type 2 diabetes mellitus without complications; K21.9 Gastro-esophageal reflux disease without esophagitis; K59.00 Constipation, unspecified; N40.0 Benign prostatic hyperplasia without lower urinary tract symptoms; F31.9 Bipolar disorder, unspecified; Z87.891 Personal history of nicotine dependence; Z79.82 Long term (current) use of aspirin; Z79.890 Hormone replacement therapy; Z79.899 Other long term (current) drug therapy
CPT/HCPCS: 36415; 71045; 71250; 74018; 74176; 76705; 78226; 80048; 80053; 81001; 83605; 83690; 83735; 83880; 84443; 84484; 85025; 85027; 87040; 92950; 93005; 93306; 99285; A9537; J0696; J1650; J1836; J1940; Q9957

== ENCOUNTER 2024-01-30 16:20 | Outpatient (BNV) | payer MEDICARE, MEDICAID, SELFPAY | END 2024-02-01 07:00 | PROVIDERS: Admitting Provider Student in an Organized Health Care Education/Training Program; Emergency Provider Emergency Medicine Emergency Medical Services; PCP Internal Medicine; Visit Provider Internal Medicine | DX: I50.30 Unspecified diastolic (congestive) heart failure (principal) | CPT/HCPCS: 93306 ==

== ENCOUNTER 2024-01-30 16:20 | Outpatient (BNV) | payer MEDICARE, MEDICAID, SELFPAY | END 2024-01-31 | PROVIDERS: Admitting Provider Student in an Organized Health Care Education/Training Program; Emergency Provider Emergency Medicine Emergency Medical Services; PCP Internal Medicine; Visit Provider Internal Medicine | DX: I44.7 Left bundle-branch block, unspecified (principal) | CPT/HCPCS: 93010 ==

== ENCOUNTER → 2024-01-30 16:20 | Outpatient (BNV) | payer MEDICARE, MEDICAID, SELFPAY | PROVIDERS: Admitting Provider Student in an Organized Health Care Education/Training Program; Emergency Provider Emergency Medicine Emergency Medical Services; Visit Provider Student in an Organized Health Care Education/Training Program | DX: I50.41 Acute combined systolic (congestive) and diastolic (congestive) heart failure (principal); I44.7 Left bundle-branch block, unspecified | CPT/HCPCS: 99223; 99232; 99239; G0180 ==

== ENCOUNTER → 2024-01-30 16:20 | Outpatient (BNV) | payer MEDICARE, MEDICAID, SELFPAY | PROVIDERS: Admitting Provider Student in an Organized Health Care Education/Training Program; Emergency Provider Emergency Medicine Emergency Medical Services; Visit Provider Internal Medicine Cardiovascular Disease | DX: I50.9 Heart failure, unspecified (principal); I44.7 Left bundle-branch block, unspecified | CPT/HCPCS: 93010; 99222; 99232; 99233 ==

== ENCOUNTER → 2024-01-30 16:20 | Outpatient (BNV) | payer MEDICARE, MEDICAID, SELFPAY | PROVIDERS: Admitting Provider Student in an Organized Health Care Education/Training Program; Emergency Provider Emergency Medicine Emergency Medical Services; Visit Provider Surgery | DX: R10.31 Right lower quadrant pain (principal); G89.29 Other chronic pain; R10.9 Unspecified abdominal pain | CPT/HCPCS: 99222; 99231 ==

== ENCOUNTER 2024-02-06 10:33 | Observation (INO) | payer MEDICARE, MEDICAID, SELFPAY ==
[2024-02-06] VITALS (8 sets, daily range): BP systolic 144–185; BP diastolic 71–100; PULSE 64–109; RESP 18–24; TEMP 36.2–36.6; O2SAT 94–98; BMI 31.7; BMI 31.4
--- NOTE | ~2024-02-06 | XR_ITS ---
EXAMINATION: XR CHEST CLINICAL INFORMATION: Weakness COMPARISON: Chest radiograph from 01/30/2020 TECHNIQUE: 2 views of the chest were obtained. FINDINGS: Small left pleural effusion with subjacent atelectasis. Prominence of pulmonary vasculature. Azygous fissure. Enlarged cardiac mediastinal silhouette. No pneumothorax. Trachea is midline. Aorta demonstrates atherosclerotic calcifications. Osseous structures are intact. Soft tissues unremarkable. XR/XR chest 2V IMPRESSION: 1. Small left pleural effusion with subjacent atelectasis. 2. Prominence of pulmonary vasculature. 3. Enlarged cardiac mediastinal silhouette.
--- NOTE | 2024-02-06 10:53 | ECG_ITS ---
Test Reason : SOB/CP Blood Pressure : / mmHG Vent. Rate : 067 BPM Atrial Rate : 067 BPM P-R Int : 144 ms QRS Dur : 160 ms QT Int : 482 ms P-R-T Axes : 042 -13 114 degrees QTc Int : 509 ms Normal sinus rhythm Left bundle branch block Abnormal ECG When compared with ECG of 30-JAN-2024 23:42, No significant changes seen Referred By: Silvia Reagan Electronically Signed By:ELI LOBO
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
--- NOTE | 2024-02-06 11:00 | PC.NURSE ---
Pt taken to xray prior to ECG being completed
[2024-02-06 11:21] LABS: MANUAL DIFF FLAG NO
--- NOTE | 2024-02-06 11:21 | PC.NURSE ---
Pt presents to ED from home via EMS. Pt reports he called for EMS due to being unable to have a bowel movement today, reports some minor pain around the umbilical area in the abdomen. Pt reports last bowel movement yesterday. Pt also reports chest pain, described as tightness, across his chest, 03/28, starting last night. Pt reports SOB starting this morning, has hx of CHF, no home O2. Pt is alert and oriented, breathing elevated and slightly labored, skin dry and pale. Pt placed on bedside library monitor, NSR. Pt is on 2L O2 via NC placed by EMS, per EMS pt was hypoxic in 80s on RA. Lung sounds clear in apices, diminished in bases.
[2024-02-06 11:22] LABS: Basophils Absolute Auto 0.1 X10*3/uL (0.0-0.2); Eosinophils Absolute Auto 0.2 X10*3/uL (0.0-0.4); Eosinophils Percent Auto 3.2 % (0-4); Hematocrit 42.9 % (42.0-52.0); Hemoglobin 14.1 g/dl (14.0-18.0); Imm Gran Abs Auto 0.01 X10*3/uL (0.00-0.03); Imm Gran Pct Auto 0.2 % (0.0-0.4); Lymphocytes Absolute Auto 1.1 X10*3/uL (1.2-4.9); Lymphocytes Percent Auto 21.5 % (20-40); Mean Corpuscular HGB Conc 32.9 g/dl (31.0-36.0); Mean Corpuscular Volume 94.3 fL (80.0-98.0); Mean Platelet Volume 9.1 fL (9.4-12.4); Monocytes Absolute Auto 0.6 X10*3/uL (0.1-1.2); Monocytes Percent Auto 11.5 % (2-11); Neutrophils Absolute Auto 3.1 x10*3/uL (2.0-8.3); Neutrophils Percent Auto 62.6 % (45-73); Platelet Count 233 X10*3/uL (160-400); Red Blood Count 4.55 X10*6/uL (4.60-5.80); Red Cell Distribution Width 13.9 % (11.0-16.0)
[2024-02-06 11:39] LABS: Alanine Aminotransferase 31 U/L (0-40); Albumin Level 3.9 g/dL (3.5-5.0); Alkaline Phosphatase 72 U/L (39-117); Anion Gap 12 (12-20); Aspartate Amino Transferase 22 U/L (5-37); Bilirubin Total 0.6 mg/dL (0.0-1.0); Blood Urea Nitrogen 31 mg/dL (9-16); Calcium 9.3 mg/dL (8.4-10.2); Carbon Dioxide 26 mmol/L (22-29); Chloride 111 mmol/L (96-108); Estimated Glomerular Filt Rate > 60; Glucose Random 104 mg/dL (60-115); Lipase 51 U/L (8-78); Magnesium 2.4 mg/dL (1.6-2.6); Potassium 4.3 mmol/L (3.3-5.1); Sodium 145 mmol/L (135-145); Total Protein 7.4 g/dL (6.5-8.0)
[2024-02-06 11:44] LABS: B Type Natriuretic Peptide 928 pg/mL (<100)
[2024-02-06] MEDS: Albuterol/Iprat 2.5/0.5MG 3 ML AMPUL.NEB INHALE (11:45)
[2024-02-06 11:46] LABS: Troponin-I High Sensitivity 8.1 ng/L (<3.5-35.0)
[2024-02-06] MEDS: Furosemide 100 MG/10 ML VIAL 60 MG IVPUSH (12:00)
--- NOTE | 2024-02-06 12:09 | PC.NURSE ---
Spoke with Gabriela Lugo (pts mom) contact [phone], updated on plan with pts permission
[2024-02-06 12:39] LABS: Appearance Urine Clear; Color Urine Yellow; Glucose Urine UA Negative (Negative); Leukocyte Esterase Urine Negative (Negative); Nitrite Urine Negative (Negative); PH 6.5 (5.0-9.0); UMIC TRIGGER UACC YES; Urine Blood Trace (Negative); Urine Ketones Negative (Negative); Urine Protein 30 (1+) mg/dL (Neg-Trace)
[2024-02-06 12:41] LABS: Bacteria Urine None Seen (None Seen); Hyaline Casts Urine 0-2 /LPF (0-2); Squamous Epithelial Cell Urine 0-2 /HPF (0-2); WBC Urine 0-5 /HPF (0-5)
[2024-02-06 13:28] LABS: Influenza A PCR NEGATIVE (Negative); Influenza B PCR NEGATIVE (Negative); Resp Syncy Virus RNA Qual PCR NEGATIVE (Negative); SARS COV2 PCR INHOUSE NEGATIVE (Negative)
--- NOTE | 2024-02-06 14:18 | P.HPHOSP_ITS ---
History of Present Illness Date of Service: 02/06/24 Attending physician on admission: Gwendolyn Lawson Chief Complaint: Abdominal pain Pt is a 73-year-old male with a PMH significant for?CAD s/p cardiac cath in 2019, HFrEF, HTN, HLD, COPD, diet-controlled type 2 diabetes, hypothyroidism, GERD, BPH, parkinsonism likely secondary to exposure to antipsychotic medications, bipolar disorder type 1 with delusions and paranoia who presents to the ED from home for evaluation of abdominal pain. Pt is per usual accompanied by his 97-year-old mother. Patient was recently admitted to the hospital from 01/29-02/01 for new onset acute HFrEF. Since discharge patient said he was doing until this morning he experienced diffuse abdominal pain and ?constipation?. Patient reports last bowel movement was yesterday and was normal in size, consistency, and color. However patient became nervous this morning due to abd pain and decided to come to the ED for further evaluation. Patient denies SOB, saying breathing is about the same as at time of discharge. Currently no longer experiencing abdominal pain, reports feeling better after eating a sandwich. Has not yet had a bowel movement today despite administration of laxatives in the ED. denies chest pain/pressure, palpitations. No fever, chills, nausea, vomiting. Of note, pt no longer taking any psychiatric medications past 6 months and has been stable. Patient does not wish to take any psychiatric medications in the Hospital as they exacerbate his parkinsonism. In the ED pt was tachycardic up to 24 and hypertensive up to 164/100, vitals otherwise WNL. Labs were significant for elevated BNP of 928, slightly reduced 1103 on 01/30/2024, otherwise grossly unremarkable and at baseline for patient. No leukocytosis. Stable H& H. No electrolyte abnormalities. Renal function and hepatic function WNL. Troponin WNL at 8.1. UA negative for UTI. CXR showed small left effusion and prominence of pulmonary vasculature with interval improvement from previous on 01/30/2024. Patient refused KUB in the ED to evaluate for constipation and also refused docusate and MiraLax. EKG demonstrated normal sinus rhythm with LBBB, similar to previous. Pt was treated with DuoNeb and Lasix 60 mg IV. Pt will be admitted to the hospital observation for treatment of mild CHF exacerbation. Review of Systems 2 Review of Systems: Abdominal pain Constipation SOB around baseline Denies chest pain/pressure, palpitations No fever, chills, nausea, vomiting [facility] Medical History Overweight (BMI 25.0-29.9) Hypothyroid Dementia Benign prostatic hyperplasia with urinary obstruction Obesity (BMI 30-39.9) Anxiety Insomnia Vitamin D deficiency Allergic rhinitis Osteoarthritis COPD (chronic obstructive pulmonary disease) Acquired hypothyroidism Benign essential hypertension Pure hypercholesterolemia Diabetes mellitus CAD (coronary artery disease) Constipation Abdominal pain, chronic, right lower quadrant GERD (gastroesophageal reflux disease) Family History Father Stroke CVD (cerebrovascular disease) Mother Hypertension Surgical History History of esophagogastroduodenoscopy (EGD) Hx of colonoscopy History of colectomy History of excision of pilonidal cyst History of arthroscopic knee surgery History of skin graft History of cardiac catheterization History of eye surgery Social History Household Members: None Housing: House Do you presently have visiting nurse or other home services: Yes Unable to assess alcohol history related to: Refusing to respond Alcohol intake: former Comment: PT on 15 minute checks Patient Tobacco Use Status: Former Tobacco user Quit Date: long time ago Tobacco use type: Cigarette and Cigar Years Smoked: unknown Smoked in Last 30 Days: No e-Cigarette/Vaping Use: Never Used Second Hand Smoke Exposure: No Use of substances other than those prescribed or required for medical reasons: No Advance Directives: Yes Advance Directives on File: Yes Advance Directives Date on File: 05/06/23 service: No Current occupational status: retired Sexual orientation: Straight/Heterosexual Cognitive needs: No Hearing needs: No Vision needs: No Meds Allergies Allergy/AdvReac Type Severity Reaction Status Date / Time lisinopril [LISINOPRIL] Allergy Intermediate RASH Verified 02/06/24 11:07 Home Medications ?Medication ?Instructions ?Recorded ?Confirmed ?Last Taken ?Type acetaminophen 500 mg tablet 500 mg PO BID PRN Pain 01/30/24 02/06/24 Unknown History aspirin 81 mg tablet,delayed 81 mg PO DAILY 01/30/24 02/06/24 Unknown History release levothyroxine 200 mcg tablet 200 mcg PO DAILY@0600 01/30/24 02/06/24 02/06/24 History Physical Exam 2 Vital Signs and Narrative: Vital Signs: Last Vital Signs Temp 97.9 F 02/06/24 11:08 Pulse 64 02/06/24 11:45 Resp 19 02/06/24 11:45 BP 156/71 H 02/06/24 12:00 Pulse Ox 98 02/06/24 11:08 O2 Del Method Nasal Cannula 02/06/24 11:08 O2 Flow Rate 2 02/06/24 11:08 Oxygen Flow Rate 2 02/06/24 11:05 BMI result Body Mass Index 31.7 Constitutional: Alert, in no acute distress. Mental Status: Oriented to person, place and time. Eyes: Pupils are equal, round, and reactive to light. Ear, Nose, and Throat: Oropharynx clear, mucous membranes moist. Ears and nose without deformities. Trachea midline. Respiratory: Clear to auscultation bilaterally. No wheezing, rales, or rhonchi. Cardiovascular: S1, S2 regular. No murmurs, rubs, or gallops. Gastrointestinal: Abdomen soft, non-tender, non-distended. Normal bowel sounds. Neurologic: Cranial nerves II-XII are grossly intact bilaterally. No focal neurological deficits. Moves all extremities spontaneously. Skin: Warm, dry. Musculoskeletal: No cyanosis or clubbing. Extremities: Trace bilateral pitting edema. Psychiatric: Cal[place], cooperative. Results Labs 02/06/24 11:17 02/06/24 11:17 Labs: Laboratory Results - last 24 hr 02/06/24 02/06/24 02/06/24 11:17 12:00 12:31 MCV 94.3 MCH 31.0 MCHC 32.9 RDW 13.9 Plt Count 233 MPV 9.1 L Immature Gran % (Auto) 0.2 Neut % (Auto) 62.6 Lymph % (Auto) 21.5 [place] % (Auto) 11.5 H Eos % (Auto) 3.2 Baso % (Auto) 1.0 Lymph # (Auto) 1.1 L [place] # (Auto) 0.6 Eos # (Auto) 0.2 Baso # (Auto) 0.1 Abs Immat Gran (auto) 0.01 Absolute Neuts (auto) 3.1 Absolute Nucleated RBC 0.000 Nucleated RBC % (auto) 0.0 Anion Gap 12 Estim Creat Clear Calc 73.0 Estimated GFR > 60 Random Glucose 104 Calcium 9.3 Magnesium 2.4 Total Bilirubin 0.6 AST 22 ALT 31 Alkaline Phosphatase 72 Troponin I High Sens 8.1 B-Natriuretic Peptide 928 H Total Protein 7.4 Albumin 3.9 Lipase 51 Urine Color Yellow Urine Appearance Clear Urine pH 6.5 Ur Specific [place] 1.010 Urine Protein 30 (1+) H Urine Glucose (UA) Negative Urine Ketones Negative Urine Blood Trace H Urine Nitrite Negative Ur Leukocyte Esterase Negative Urine RBC 3-5 H Urine WBC 0-5 Ur Squamous Epith Cells 0-2 Urine Bacteria None Seen Hyaline Casts 0-2 Influenza Type A (PCR) NEGATIVE Influenza Type B (PCR) NEGATIVE RSV RNA Qual (PCR) NEGATIVE SARS-CoV-2 RNA (RT-PCR) NEGATIVE Imaging Radiologist's Impressions: Impressions Chest X-Ray 02/06/24 11:01 IMPRESSION: 1. Small left pleural effusion with subjacent atelectasis. 2. Prominence of pulmonary vasculature. 3. Enlarged cardiac mediastinal silhouette. Assessment and Plan (1) CHF (congestive heart failure): Status: Acute Plan Pt is a 73-year-old male with a PMH significant for?CAD s/p cardiac cath in 2019, HFrEF, HTN, HLD, COPD, diet-controlled type 2 diabetes, hypothyroidism, GERD, BPH, parkinsonism likely secondary to exposure to antipsychotic medications, bipolar disorder type 1 with delusions and paranoia who presents to the ED from home for evaluation of abdominal pain. Pt was treated with DuoNeb and Lasix 60 mg IV. Pt will be admitted to the hospital observation for treatment of mild CHF exacerbation. Mild HFrEF exacerbation CXR still showing pulmonary edema, BNP still elevated at 928 Received Lasix 60 mg IV in ED Will treat with Lasix 40 mg IV daily Follow lytes, Mag, I/O Daily weights, low-salt diet Monitor on telemetry Abdominal pain with concern for constipation Patient reports last bowel movement yesterday which was normal in size, color, and consistency Refused KUB, MiraLax, and docusate in the ED Patient no longer complaining of abdominal pain after eating a sandwich Will continue to offer MiraLax, docusate, milk of magnesia Mood disorder No longer on home medications Mood has been stable Patient does not wish to take psychiatric medications while in the hospital as they exacerbate his parkinsonism HTN Continue losartan Hypothyroidism Continue levothyroxine Insomnia Trazodone p.r.n. Full Code Attending:?Dr. Lawson DVT Prophylaxis: Lovenox Pt will be admitted to the hospital under observation for treatment and further evaluation of mild CHF exacerbation. Quality Stroke Does the patient have a stroke diagnosis?: No VTE Prior VTE?: No VTE Risk Level:: Medical - moderate - high VTE Device Contraindication: Treatment Not Indicated VTE Drug Contraindication: N/A - Med Ordered
[2024-02-06] MEDS: Enoxaparin Sodium 40 MG/0.4 ML SYRINGE SUBCUT (15:04)
[2024-02-06] MEDS: 0.9 % Sodium Chloride Flush 3 ML SYRINGE IVFLUSH ×2 (15:04→23:36)
--- NOTE | 2024-02-06 15:44 | PHA.MEDREC ---
Pharmacy Consult ? Medication Reconciliation Pharmacy has completed the medication reconciliation. Patient reports only taking 3 medications: levothyroxine, losartan, and mentions taking another drug but cannot remember the name of it. Pt poor historian of medications.
[2024-02-06] MEDS: hydrOXYzine HCL 25 MG TABLET PO (16:23)
[2024-02-06] MEDS: polyethylene glycoL 3350 17 GM POWD.PACK PO (16:23)
[2024-02-06] MEDS: Acetaminophen 325 MG TABLET 650 MG PO (16:27)
[2024-02-06] MEDS: Docusate Sodium 100 MG CAPSULE PO (19:50)
[2024-02-07] MEDS: LORazepam 2 MG/ML VIAL 1 MG IVPUSH (01:11)
[2024-02-07 01:50] VITALS: PULSE 43
[2024-02-07 02:03] VITALS: PULSE 48; RESP 16; O2SAT 93
--- NOTE | 2024-02-07 02:22 | PC.NURSE ---
Patient became very uncooperative and combative, yelling approx [phone]. refusing vitals and nursing care. Hit this RN. Patient insists his father is Law Heck and will be reporting staff to him. Patient was OOB for urinal and refused to lay in bed, remaining on bedside as fall risk. Repeatedly yelling at staff, insisting IV be removed and that we dress him and that his sister is on her way to pick him up. notified of such and high BP. IV ativan given 0115. At 0150, staff watching engineering group manager messaged as patient HR consistently 40's as low as 43. Rechecked patient at this time and he is easily aroused by o2 sat probe and refused the rest of vitals and was angry to have been awoken. notified of HR as well via [employer].
[2024-02-07 04:00] VITALS: BP 123/65; PULSE 53; RESP 16; TEMP 36; O2SAT 93
[2024-02-07] MEDS: hydrOXYzine HCL 25 MG TABLET PO (05:47)
[2024-02-07 06:00] VITALS: BMI 31.4
[2024-02-07 07:44] VITALS: BP 145/85; PULSE 63; RESP 18; TEMP 36.2; O2SAT 99
--- NOTE | 2024-02-07 09:50 | MHC.CM.PN ---
PATIENT RECENTLY SEEN HERE AND SENT HOME WITH [facility] WAS UNABLE TO PROVIDE CARE, HE IS HOME ALONE WAND DEEMED UNSAFE TO BE SO. [facility] REPORT FILED, PATIENT NOT WELL VERSED ON MEDICATION ADMINISTRATION SECONDARY TO MEMORY IMPAIRMENT. 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 AAMIR 02/06 DELIVERED AND ORIGINAL PLACED IN CHART
--- NOTE | 2024-02-07 09:57 | PM.DS ---
DS: Providers Provider Date of Service: 02/07/24 Date of admission: 02/06/24 14:01 Date of discharge: 02/07/24 Primary care physician: Samuel Schneider MD Attending physician on discharge: Gwendolyn Lawson Discharging clinician: Gwendolyn Lawson DS: Diagnosis Discharge Diagnosis (1) CHF (congestive heart failure): Status: Acute DS: Summary Hospital Course Hospital Course: 73-year-old male with a PMH significant for?CAD s/p cardiac cath in 2019, HFrEF, HTN, HLD, COPD, diet-controlled type 2 diabetes, hypothyroidism, GERD, BPH, parkinsonism likely secondary to exposure to antipsychotic medications, bipolar disorder type 1 with delusions and paranoia who presents to the ED from home for evaluation of abdominal pain. Pt is per usual accompanied by his 97-year-old mother. Patient was recently admitted to the hospital from 01/29-02/01 for new onset acute HFrEF. Since discharge patient said he was doing until this morning he experienced diffuse abdominal pain and ?constipation?. Patient reports last bowel movement was yesterday and was normal in size, consistency, and color. However patient became nervous this morning due to abd pain and decided to come to the ED for further evaluation. Patient denies SOB, saying breathing is about the same as at time of discharge. Currently no longer experiencing abdominal pain, reports feeling better after eating a sandwich. Has not yet had a bowel movement today despite administration of laxatives in the ED. denies chest pain/pressure, palpitations. No fever, chills, nausea, vomiting. Of note, pt no longer taking any psychiatric medications past 6 months and has been stable. Patient does not wish to take any psychiatric medications in the Hospital as they exacerbate his parkinsonism. In the ED pt was tachycardic up to 24 and hypertensive up to 164/100, vitals otherwise WNL. Labs were significant for elevated BNP of 928, slightly reduced 1103 on 01/30/2024, otherwise grossly unremarkable and at baseline for patient. No leukocytosis. Stable H& H. No electrolyte abnormalities. Renal function and hepatic function WNL. Troponin WNL at 8.1. UA negative for UTI. CXR showed small left effusion and prominence of pulmonary vasculature with interval improvement from previous on 01/30/2024. Patient refused KUB in the ED to evaluate for constipation and also refused docusate and MiraLax. EKG demonstrated normal sinus rhythm with LBBB, similar to previous. Pt was treated with DuoNeb and Lasix 60 mg IV. Pt will be admitted to the hospital observation for treatment of mild CHF exacerbation. Hospital course: mild chf execerbation (acute HFrEF)-received iv lasix yesterday,sob seems improved , no edema, sats are in 90s on room air,switched to po lasix upon discharge ,chf education given. if weight gain 2 pound or more in 1 week -may need to adjust home lasix dose . moniter bmp and follow up with pcp. consitption:added prn colace and miralex , patieny had 1 bm today plan: Continue home dose of Lasix ,monitor BMP out patiently as well as CHF education given. For Constipation p.r.n. Colace and MiraLax as needed. Above management discussed with the patient detail length he understand and in agreement with the above plan, time spent 35 minute. Time Attestation Total time managing care of this patient today: 35 mintues. Discharge Coordination Time (in mins): 35 min Quality: Safe Use of Opioids Does Pt have an Active Cancer Diagnosis on the Problem List?: No Quality: Stroke Does the patient have a stroke diagnosis?: No Physical Exam Vital Signs: Vital Signs: Last Vital Signs Temp 97.2 F 02/07/24 07:44 Pulse 63 02/07/24 07:44 Resp 18 02/07/24 07:44 BP 145/85 H 02/07/24 07:44 Pulse Ox 99 02/07/24 07:44 O2 Del Method Room Air 02/07/24 07:44 O2 Flow Rate 2 02/06/24 11:08 Oxygen Flow Rate 2 02/06/24 11:05 BMI result Body Mass Index 31.4 Appearance: Alert.? Oriented X3.? cvs: rrr, [id number] , no murmur res: clear to auscultation ,no rhonchii or wheezing abd: no rebound or guarding ,nt, bs present. ext pulses present , no cyanosis. neuro: axo3 , nonfocal. DS: Data Data Completed and Pending Labs on day of discharge: Laboratory Results - last 24 hr 02/06/24 02/06/24 02/06/24 11:17 12:00 12:31 WBC 5.0 RBC 4.55 L Hgb 14.1 Hct 42.9 MCV 94.3 MCH 31.0 MCHC 32.9 RDW 13.9 Plt Count 233 MPV 9.1 L Immature Gran % (Auto) 0.2 Neut % (Auto) 62.6 Lymph % (Auto) 21.5 [place] % (Auto) 11.5 H Eos % (Auto) 3.2 Baso % (Auto) 1.0 Lymph # (Auto) 1.1 L [place] # (Auto) 0.6 Eos # (Auto) 0.2 Baso # (Auto) 0.1 Abs Immat Gran (auto) 0.01 Absolute Neuts (auto) 3.1 Absolute Nucleated RBC 0.000 Nucleated RBC % (auto) 0.0 Sodium 145 Potassium 4.3 Chloride 111 H Carbon Dioxide 26 Anion Gap 12 BUN 31 H Creatinine 1.02 Estim Creat Clear Calc 73.0 Estimated GFR > 60 Random Glucose 104 Calcium 9.3 Magnesium 2.4 Total Bilirubin 0.6 AST 22 ALT 31 Alkaline Phosphatase 72 Troponin I High Sens 8.1 B-Natriuretic Peptide 928 H Total Protein 7.4 Albumin 3.9 Lipase 51 Urine Color Yellow Urine Appearance Clear Urine pH 6.5 Ur Specific [place] 1.010 Urine Protein 30 (1+) H Urine Glucose (UA) Negative Urine Ketones Negative Urine Blood Trace H Urine Nitrite Negative Ur Leukocyte Esterase Negative Urine RBC 3-5 H Urine WBC 0-5 Ur Squamous Epith Cells 0-2 Urine Bacteria None Seen Hyaline Casts 0-2 Influenza Type A (PCR) NEGATIVE Influenza Type B (PCR) NEGATIVE RSV RNA Qual (PCR) NEGATIVE SARS-CoV-2 RNA (RT-PCR) NEGATIVE Imaging Chest x-ray: Radiologist's impression: ITS Impressions Chest X-Ray 02/06/24 11:01 IMPRESSION: 1. Small left pleural effusion with subjacent atelectasis. 2. Prominence of pulmonary vasculature. 3. Enlarged cardiac mediastinal silhouette. Discharge Plan Discharge Anticipated Discharge Date/Time: 02/07/24 09:53 Patient Disposition: Home, Self-Care Discharge Diagnosis: chf excerebation , constipation Referrals: Samuel Schneider MD [Primary Care Provider] - 1 Week Discharge Medications: New docusate sodium [Colace] 100 mg capsule 100 mg PO DAILY PRN (Reason: constipation) Qty: 30 0RF polyethylene glycol 3350 [Miralax] 17 gram/dose powder 17 g PO DAILY PRN (Reason: constipation) Qty: 119 0RF Continued losartan 50 mg tablet 50 mg PO DAILY 90 Days Qty: 90 0RF Protocol: Hold for SBP< HOLD for SBP < : 90 aspirin 81 mg Tablet,Delayed Release (Dr/Ec) 81 mg PO DAILY acetaminophen 500 mg Tablet 500 mg PO BID PRN (Reason: Pain) levothyroxine 200 mcg tablet 200 mcg PO DAILY@0600 furosemide 40 mg Tablet 40 mg PO DAILY Qty: 90 0RF Protocol: Hold for SBP< HOLD for SBP < : 90 spironolactone 25 mg Tablet 25 mg PO DAILY Qty: 90 0RF Protocol: Hold for SBP< HOLD for SBP < : 90 dapagliflozin propanediol [Farxiga] 10 mg tablet 10 mg PO DAILY Qty: 90 0RF Discharge Orders: Discharge Order (Routine); Ordered 02/07/24 Ordered By: Gwendolyn Lawson Diet: Advance to usual diet Activity on Discharge: As tolerated Stand Alone Forms: Patient Portal Discharge page Print Language: Persian Care Plan Goals: mild chf execerbation -received iv lasix yesterday,s seems improved ,switched to po lasix upon discharge ,chf education given. if weight gain 2 pound or more in 1 week -may need to adjust home lasix dose . moniter bmp and follow up with pcp. added prn colace and miralex for consitption. Health Concerns: as above. Plan of Treatment: as above. Assessment: as above.
--- NOTE | 2024-02-07 10:02 | MHC.CM.PN ---
PATIENT ASKING TO GO HOME. HE DOES NOT WANT ANY PLACEMENT ASSISTANCE ATTEMPTS. EMS [id number]) BOOKED FOR 1130. RN, UNIT, AND PATIENT AWARE.
--- NOTE | 2024-02-07 10:11 | MHC.CM.PN ---
DC SUMMARY SENT TO [facility], [facility] REPORT HAD BEEN FILED. [facility] REPLIED TO THIS PAIN COORDINATOR, STATING PATIENT NEEDS TO BE 24/HR CARE AND HAS MINIMAL SUPPORT. PATIENT CONTINUES TO DENY ANY ATTEMPTS AT PLACEMENT.
== END 2024-02-07 11:40 | disposition home or self-care (01) ==
LOC: HO.ED 11:25 → HO.EDOVER 14:22 → HO.S3 17:16
PROVIDERS: Physician Assistant Medical; Admitting Provider Student in an Organized Health Care Education/Training Program; Emergency Provider Emergency Medicine; PCP Internal Medicine; Visit Provider Internal Medicine
DX: I11.0 Hypertensive heart disease with heart failure (principal); I50.20 Unspecified systolic (congestive) heart failure; R06.02 Shortness of breath; K59.00 Constipation, unspecified; R00.0 Tachycardia, unspecified; E11.9 Type 2 diabetes mellitus without complications; I44.7 Left bundle-branch block, unspecified; J44.9 Chronic obstructive pulmonary disease, unspecified; E03.9 Hypothyroidism, unspecified; F03.90 Unspecified dementia, unspecified severity, without behavioral disturbance, psychotic disturbance, mood disturbance, and anxiety; I25.10 Atherosclerotic heart disease of native coronary artery without angina pectoris; G20.C Parkinsonism, unspecified; F31.9 Bipolar disorder, unspecified; G47.00 Insomnia, unspecified; F39 Unspecified mood [affective] disorder; Z79.899 Other long term (current) drug therapy; Z03.818 Encounter for observation for suspected exposure to other biological agents ruled out
CPT/HCPCS: 0241U; 71046; 80053; 81001; 83690; 83735; 83880; 84484; 85025; 93005; 94640; 96372; 96374; 96375; 99221; 99285; J1650; J1940; J2060

== ENCOUNTER → 2024-02-06 10:53 | Outpatient (BNV) | payer MEDICARE, MEDICAID, SELFPAY | PROVIDERS: Admitting Provider Student in an Organized Health Care Education/Training Program; Emergency Provider Emergency Medicine; PCP Internal Medicine; Visit Provider Internal Medicine | DX: I44.7 Left bundle-branch block, unspecified (principal) | CPT/HCPCS: 93010 ==

== ENCOUNTER → 2024-02-06 14:01 | Outpatient (BNV) | payer MEDICARE, MEDICAID, SELFPAY | PROVIDERS: Admitting Provider Student in an Organized Health Care Education/Training Program; Emergency Provider Emergency Medicine; PCP Internal Medicine; Visit Provider Student in an Organized Health Care Education/Training Program | DX: I50.9 Heart failure, unspecified (principal) | CPT/HCPCS: 99222; 99239 ==

== ENCOUNTER 2024-02-09 12:13 | Outpatient (AMB) | payer MEDICARE, MEDICAID, SELFPAY ==
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
[2024-02-09 12:16] VITALS: BP 158/98; PULSE 74; O2SAT 98; BMI 30.9
== END 2024-02-09 13:14 | disposition home or self-care (01) ==
PROVIDERS: PCP Internal Medicine; Visit Provider Internal Medicine
DX: I50.41 Acute combined systolic (congestive) and diastolic (congestive) heart failure (principal); G21.19 Other drug induced secondary parkinsonism; F03.918 Unspecified dementia, unspecified severity, with other behavioral disturbance; E11.9 Type 2 diabetes mellitus without complications; F31.2 Bipolar disorder, current episode manic severe with psychotic features; I25.10 Atherosclerotic heart disease of native coronary artery without angina pectoris; E78.00 Pure hypercholesterolemia, unspecified; I10 Essential (primary) hypertension; E03.9 Hypothyroidism, unspecified; K21.9 Gastro-esophageal reflux disease without esophagitis; K59.00 Constipation, unspecified; M19.91 Primary osteoarthritis, unspecified site
CPT/HCPCS: 99214

== ENCOUNTER 2024-02-11 14:57 | Outpatient (AMB) | payer MEDICARE, MEDICAID, SELFPAY ==
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
[2024-02-11 15:06] VITALS: BP 150/88; PULSE 68; RESP 17; O2SAT 97; BMI 30.9
== END 2024-02-11 16:05 | disposition home or self-care (01) ==
PROVIDERS: PCP Internal Medicine; Visit Provider Psychiatry & Neurology Neurology
DX: G24.01 Drug induced subacute dyskinesia (principal); G21.19 Other drug induced secondary parkinsonism; T75.00XA Unspecified effects of lightning, initial encounter; R41.89 Other symptoms and signs involving cognitive functions and awareness
CPT/HCPCS: 99205

== ENCOUNTER → 2024-02-11 14:57 | Outpatient (BNVA) | payer MEDICARE, MEDICAID, SELFPAY | PROVIDERS: PCP Internal Medicine; Visit Provider Psychiatry & Neurology Neurology | DX: G24.01 Drug induced subacute dyskinesia (principal); G21.19 Other drug induced secondary parkinsonism; R41.89 Other symptoms and signs involving cognitive functions and awareness; T75.0 Effects of lightning | CPT/HCPCS: 99202 ==

== ENCOUNTER 2024-05-09 15:14 | Outpatient (AMB) | payer MEDICARE, MEDICAID, SELFPAY ==
[2024-05-09 15:14] VITALS: BP 150/80; PULSE 78; TEMP 36.6; O2SAT 95
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
== END 2024-05-09 15:52 | disposition home or self-care (01) ==
PROVIDERS: PCP Internal Medicine; Visit Provider Registered Nurse
DX: K59.00 Constipation, unspecified (principal)
CPT/HCPCS: 99213

== ENCOUNTER 2024-05-11 09:56 | Inpatient (IN) | payer MEDICARE, MEDICAID, SELFPAY ==
--- NOTE | ~2024-05-11 | XR_ITS ---
EXAMINATION: XR CHEST CLINICAL INFORMATION: Dyspnea. COMPARISON: 02/06/2024 TECHNIQUE: Frontal view of the chest was obtained. FINDINGS: Lung volumes are low. Chin obscures the right lung apex. There is no gross pneumothorax. Azygos lobe. Persistent prominence of the vasculature suggestive of vascular congestion. Increased hazy opacities in the mid to lower right lung and left basilar opacities. Increased [id number]-[id number] right pleural effusion. Trace left pleural effusion has decreased. XR/XR chest 1V IMPRESSION: 1. Persistent prominence of the vasculature suggestive of vascular congestion. Increased hazy opacities in the mid to lower right lung and left basilar opacities. 2. Increased [id number]-[id number] right pleural effusion. Trace left pleural effusion has decreased. This study was presented today May 11, 2024 for interpretation. Stat results provided at this time as requested by referring provider.
[2024-05-11 09:59] VITALS: BP 156/104; BP 170/90; PULSE 60; PULSE 65; RESP 18; TEMP 36.5; O2SAT 94; O2SAT 95; BMI 34.7
--- NOTE | 2024-05-11 12:03 | ECG_ITS ---
Test Reason : dyspnea Blood Pressure : / mmHG Vent. Rate : 080 BPM Atrial Rate : 080 BPM P-R Int : 132 ms QRS Dur : 156 ms QT Int : 468 ms P-R-T Axes : 036 -30 088 degrees QTc Int : 539 ms Sinus rhythm with occasional Premature ventricular complexes Left axis deviation Left bundle branch block Abnormal ECG When compared with ECG of 06-FEB-2024 11:07, Premature ventricular complexes are now Present Referred By: Esther Rayo Electronically Signed By:ELI LOBO
[2024-05-11 12:20] LABS: MANUAL DIFF FLAG NO
[2024-05-11 12:22] LABS: Basophils Percent Auto 0.5 % (0-2); Eosinophils Absolute Auto 0.1 X10*3/uL (0.0-0.4); Eosinophils Percent Auto 1.7 % (0-4); Hematocrit 43.5 % (42.0-52.0); Hemoglobin 14.4 g/dl (14.0-18.0); Imm Gran Abs Auto 0.03 X10*3/uL (0.00-0.03); Imm Gran Pct Auto 0.5 % (0.0-0.4); Lymphocytes Absolute Auto 1.1 X10*3/uL (1.2-4.9); Lymphocytes Percent Auto 16.2 % (20-40); Mean Corpuscular HGB Conc 33.1 g/dl (31.0-36.0); Mean Corpuscular Hemoglobin 30.4 pg (27.0-33.0); Mean Platelet Volume 9.8 fL (9.4-12.4); Monocytes Absolute Auto 0.7 X10*3/uL (0.1-1.2); Monocytes Percent Auto 11.2 % (2-11); NRBC Pct Auto 0.3 /100WBC (0.0-0.2); Neutrophils Absolute Auto 4.6 x10*3/uL (2.0-8.3); Neutrophils Percent Auto 69.9 % (45-73); Platelet Count 193 X10*3/uL (160-400); Red Blood Count 4.73 X10*6/uL (4.60-5.80); Red Cell Distribution Width 18.6 % (11.0-16.0); White Blood Count 6.6 X10*3/uL (4.8-10.8)
[2024-05-11 12:23] VITALS: BP 162/107
[2024-05-11] MEDS: Furosemide 40 MG/4 ML VIAL IVPUSH ×2 (12:23→19:04)
[2024-05-11 12:27] LABS: VBG Base Excess 3.6 mmol/L; VBG HCO3 27 mmol/L (22-26); VBG pCO2 40 mmHg; VBG pH 7.44 (7.32-7.43); VBG pO2 44 mmHg
[2024-05-11 12:28] LABS: Venous Blood Gas Refer to POC result
[2024-05-11 12:43] LABS: B Type Natriuretic Peptide 2879 pg/mL (<100)
[2024-05-11 12:44] LABS: Troponin-I High Sensitivity 19.9 ng/L (<3.5-35.0)
[2024-05-11 12:48] LABS: Alanine Aminotransferase 180 U/L (0-40); Albumin Level 3.7 g/dL (3.5-5.0); Alkaline Phosphatase 86 U/L (39-117); Anion Gap 13 (12-20); Aspartate Amino Transferase 77 U/L (5-37); Bilirubin Direct 0.3 mg/dL (0.0-0.5); Bilirubin Total 0.7 mg/dL (0.0-1.0); Blood Urea Nitrogen 35 mg/dL (9-16); Calcium 9.5 mg/dL (8.4-10.2); Carbon Dioxide 26 mmol/L (22-29); Chloride 110 mmol/L (96-108); Estimated Glomerular Filt Rate 50; Glucose Random 149 mg/dL (60-115); Lipase 28 U/L (8-78); Magnesium 2.3 mg/dL (1.6-2.6); Potassium 4.7 mmol/L (3.3-5.1); Sodium 144 mmol/L (135-145); Total Protein 6.6 g/dL (6.5-8.0)
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
[2024-05-11 12:59] LABS: TSH reflex Free T4 71.87 uIU/mL (0.32-4.0)
[2024-05-11 13:08] LABS: Influenza A PCR NEGATIVE (Negative); Influenza B PCR NEGATIVE (Negative); Resp Syncy Virus RNA Qual PCR NEGATIVE (Negative); SARS COV2 PCR INHOUSE NEGATIVE (Negative)
--- NOTE | 2024-05-11 13:16 | PC.NURSE ---
patient medicated per MAR with lasix, [place] cath applied for urine output measurement
[2024-05-11 13:29] LABS: Free T4 (Free Thyroxine) 0.81 ng/dL (0.71-1.85)
[2024-05-11] MEDS: OLANZapine ODT 10 MG TAB.RAPDIS TRANSLINGU (14:11)
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
--- NOTE | 2024-05-11 14:24 | PHA.MEDREC ---
Pharmacy Consult ? Medication Reconciliation Pharmacy has completed the medication reconciliation. Unable to speak with patient due to having dementia, called sister who is his primary contact, she stated to never contact her regarding Sean. I called patient's mother who did not have a list, but could confirm he was on heart and blood pressure medications. She confirmed omeprazole, atorvastatin. She states he is not taking Lasix, Farxiga, or Aspirin.
--- NOTE | 2024-05-11 15:21 | PC.NURSE ---
Patient refusing to change into hospital attire, state he wants to go home and you cannot keep me against my will . Patients mother coming to tell him he needs to be admitted.
[2024-05-11 16:02] LABS: Appearance Urine Clear; Color Urine Yellow; Glucose Urine UA Negative (Negative); Leukocyte Esterase Urine Negative (Negative); Nitrite Urine Negative (Negative); PH 5.5 (5.0-9.0); UMIC TRIGGER UACC YES; Urine Blood Small (1+) (Negative); Urine Ketones Negative (Negative); Urine Protein 100 (2+) mg/dL (Neg-Trace)
--- NOTE | 2024-05-11 16:08 | PC.NURSE ---
urine obtained/sent to lab. 300ml of clear/pale yellow urine noted/documented.
[2024-05-11 16:36] LABS: Bacteria Urine None Seen (None Seen); Hyaline Casts Urine 0-2 /LPF (0-2); RBC Urine 0-2 /HPF (0-2); Squamous Epithelial Cell Urine 0-2 /HPF (0-2); WBC Urine 0-5 /HPF (0-5)
[2024-05-11 16:39] VITALS: BP 163/104; BP 166/111; PULSE 71; RESP 16; TEMP 36.7; O2SAT 96
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
--- NOTE | 2024-05-11 17:01 | MHC.EDTECH ---
patient is refusing to change into hospital gown.
--- NOTE | 2024-05-11 17:25 | PC.NURSE ---
pt speaking w/ hospitalist at this time. family bedside for support. plan of care ongoing.
--- NOTE | 2024-05-11 17:50 | MHC.EDTECH ---
RN AWARE THAT PATIENT REFUSED TO BE HOOKED UP TO ACOUSTICAL CARPENTER ,AND TO BE SOLDER MAKING SUPERVISOR INTO HOSPITAL GOWN ,PATIENT AND HIS MOM REFUSED TO HAVE STAFF BE IN ROOM WHEN PATIENT USE 5THE URINAL OR BEDSIDE COMMODE .
--- NOTE | 2024-05-11 17:51 | PC.NURSE ---
pt becoming seemingly agitated while conversing w/ hospitalist/ED provider. pt demanding that he needs to go home. pt currently remains pending admission. pt continues to refuse to change into hospital attire/be placed on satellite project site monitor. mother (wheelchair baseline) is bedside telling this RN/tech that we are not allowed in the room while pt is utilizing commode or urinal. pt's mother as well as pt educated on the importance of assistance as pt is a high fall risk. pt/mother still refusing assistance at this time. plan of care ongoing.
--- NOTE | 2024-05-11 17:58 | MHC.EDTECH ---
patient refusing 6pm vital signs stating he wants to go home
[2024-05-11] MEDS: QUEtiapine Fumarate 25 MG TABLET PO (19:03)
[2024-05-11] MEDS: Enoxaparin Sodium 40 MG/0.4 ML SYRINGE SUBCUT (19:03)
[2024-05-11 19:04] VITALS: BP 168/108
--- NOTE | 2024-05-11 19:12 | PC.NURSE ---
medication administered per provider order. delay in medication d/t this RN having emergency situations w/ other pt's. this RN utilized float RNBela to administer medication. no difficulties in swallowing noted. pt swallowed pills whole w/ water. pt sitting upright/eating dinner. no sob/wob noted. waiting for bed assignment at this time. plan of care ongoing. call spring placed within reach.
[2024-05-11 19:59] VITALS: BP 157/95; PULSE 67; RESP 16; TEMP 36.9; O2SAT 99
[2024-05-11] MEDS: Atorvastatin Calcium 40 MG TABLET PO (21:00)
[2024-05-11 23:23] VITALS: BP 147/97; PULSE 63; RESP 16; TEMP 36.4; O2SAT 96
--- NOTE | 2024-05-11 23:26 | MHC.EDTECH ---
Patient had a snack ate 2 puddings .
[2024-05-12] VITALS (7 sets, daily range): BP systolic 111–163; BP diastolic 59–94; PULSE 52–74; RESP 16–20; TEMP 36.1–36.6; O2SAT 92–97; BMI 33.5
--- NOTE | 2024-05-12 00:01 | MHC.EDTECH ---
Patient was assisted to use the urinal ,void 250 ml ,pt back imn bed .
--- NOTE | 2024-05-12 02:25 | PC.NURSE ---
Patient at this time still refusing monitoring specialist.
[2024-05-12] MEDS: Levothyroxine Sodium 200 MCG TABLET PO (07:39)
[2024-05-12] MEDS: 0.9 % Sodium Chloride Flush 3 ML SYRINGE IVFLUSH ×3 (07:40→21:21)
[2024-05-12] MEDS: Losartan Potassium 50 MG TABLET PO (07:40)
[2024-05-12] MEDS: QUEtiapine Fumarate 25 MG TABLET PO ×2 (07:40→21:21)
[2024-05-12] MEDS: Spironolactone 25 MG TABLET PO (07:40)
[2024-05-12] MEDS: Omeprazole 20 MG CAPSULE.DR PO (07:40)
[2024-05-12] MEDS: Furosemide 40 MG/4 ML VIAL IVPUSH ×2 (07:40→17:41)
[2024-05-12 08:53] LABS: Anion Gap 15 (12-20); Blood Urea Nitrogen 33 mg/dL (9-16); Calcium 9.4 mg/dL (8.4-10.2); Carbon Dioxide 28 mmol/L (22-29); Chloride 108 mmol/L (96-108); Creatinine Clr Calc Pharmacy 61.3; Estimated Glomerular Filt Rate 56; Glucose Random 117 mg/dL (60-115); Magnesium 2.1 mg/dL (1.6-2.6); Potassium 3.9 mmol/L (3.3-5.1); Sodium 147 mmol/L (135-145)
[2024-05-12 08:59] LABS: Troponin-I High Sensitivity 23.2 ng/L (<3.5-35.0)
--- NOTE | 2024-05-12 09:10 | MHC.CM.PN ---
Patient has a diagnosis of Moderate-Severe Cognitive Impairment and S/S of Aggression and agitation; CM spoke with Mother/HCP/Judi @ [phone] and addressed IMM with her (original will be mailed certified letter to Judi and a copy has been placed on the chart). Patient lives alone in his own house and he is functionally independent. Patient has a [employer] 4 days/week for 3-4 hours/visit and MOW's; Protective Services have also been involved with Patient in the past. Home/resume said services is Patient's goal and CM has initiated and will follow for dc planning. PCP is Dr. Samuel Schneider. Patient has had [facility] in the past to assist with meds, but Patient often refuses the Nursing visits. CM will follow.
--- NOTE | 2024-05-12 10:27 | MHC.CM.PN ---
PT is recommending STR; CM will follow.
--- NOTE | 2024-05-12 15:06 | HO.PM.IMPN ---
Subjective Subjective Date of Service: 05/12/24 Interval History: No acute issues overnight. Good response to IV Lasix. Review of Systems Denies chest pain Denies shortness of breath Denies nausea vomiting diarrhea Denies fever chills Physical Exam Vital Signs: Vital Signs: Last Vital Signs Temp 96.9 F 05/12/24 10:57 Pulse 54 05/12/24 10:57 Resp 20 05/12/24 10:57 BP 111/59 L 05/12/24 10:57 Pulse Ox 95 05/12/24 10:57 O2 Del Method Room Air 05/12/24 10:57 BMI result Body Mass Index 33.5 Const: Other: Awake alert no acute distress Resp: Other: Clear to auscultation bilaterally no rales rhonchi or wheezes Cardio: Other: No S4; positive S1-S2; no S3 murmurs rubs or gallops GI: Other: Soft nontender nondistended normoactive bowel sounds Extrem: Other: 2-3+ edema bilaterally Objective Data Active Medications Acetaminophen (Acetaminophen 325 Mg Tablet) 650 mg PO Q6H PRN PRN Reason: Pain, Mild (Pain Scale 1-3), fever or headache Atorvastatin Calcium (Atorvastatin Calcium 40 Mg Tablet) 40 mg PO BEDTIME [facility] Last Admin: 05/11/24 21:00 Dose: 40 mg Documented By: BIN Benzonatate (Benzonatate 100 Mg Capsule) 100 mg PO TID PRN PRN Reason: Cough Calcium Carbonate (Calcium Carbonate 750 Mg Tab.Chew) 750 mg PO Q4H PRN PRN Reason: Heartburn Docusate Sodium (Docusate Sodium 100 Mg Capsule) 100 mg PO DAILY PRN PRN Reason: constipation Enoxaparin Sodium (Enoxaparin Sodium 40 Mg/0.4 Ml Syringe) 40 mg SUBCUT Q24H [facility] Last Admin: 05/11/24 19:03 Dose: 40 mg Documented By: MERA Furosemide (Furosemide 40 Mg/4 Ml Vial) 40 mg IVPUSH BID@0900,1800 [facility]; Protocol Last Admin: 05/12/24 07:40 Dose: 40 mg Documented By: NATANAEL Levothyroxine Sodium (Levothyroxine Sodium 200 Mcg Tablet) 200 mcg PO DAILY@0600 [facility] Last Admin: 05/12/24 07:39 Dose: 200 mcg Documented By: NATANAEL Losartan Potassium (Losartan Potassium 50 Mg Tablet) 50 mg PO DAILY [facility]; Protocol Last Admin: 05/12/24 07:40 Dose: 50 mg Documented By: NATANAEL Magnesium Hydroxide (Milk Of Magnesia 30 Ml Oral.Susp) 30 ml PO DAILY PRN PRN Reason: Constipation Melatonin (Melatonin 3 Mg Tablet) 6 mg PO BEDTIME PRN PRN Reason: Insomnia Omeprazole (Omeprazole 20 Mg Capsule.Dr) 20 mg PO DAILY@0630 [facility] Last Admin: 05/12/24 07:40 Dose: 20 mg Documented By: NATANAEL Ondansetron HCl (Ondansetron Hcl 4 Mg/2 Ml Vial) 4 mg IVPUSH Q8H PRN PRN Reason: Nausea and Vomiting Quetiapine Fumarate (Quetiapine Fumarate 25 Mg Tablet) 25 mg PO BID [facility] Last Admin: 05/12/24 07:40 Dose: 25 mg Documented By: NATANAEL Sodium Chloride (0.9 % Sodium Chloride Flush 3 Ml Syringe) 3 ml IVFLUSH QSHIFT [facility] Last Admin: 05/12/24 07:40 Dose: 3 ml Documented By: NATANAEL Spironolactone (Spironolactone 25 Mg Tablet) 25 mg PO DAILY [facility]; Protocol Last Admin: 05/12/24 07:40 Dose: 25 mg Documented By: NATANAEL Labs 05/11/24 12:15 05/12/24 08:33 Labs: Laboratory Results - last 24 hr 05/11/24 05/12/24 05/12/24 15:43 08:32 08:33 Anion Gap 15 Estim Creat Clear Calc 61.3 Estimated GFR 56 Random Glucose 117 H Calcium 9.4 Magnesium 2.1 Troponin I High Sens 23.2 Urine Color Yellow Urine Appearance Clear Urine pH 5.5 Ur Specific [place] 1.010 Urine Protein 100 (2+) H Urine Glucose (UA) Negative Urine Ketones Negative Urine Blood Small (1+) H Urine Nitrite Negative Ur Leukocyte Esterase Negative Urine RBC 0-2 Urine WBC 0-5 Ur Squamous Epith Cells 0-2 Urine Bacteria None Seen Hyaline Casts 0-2 Assessment and Plan (1) Acute HFrEF (heart failure with reduced ejection fraction): Status: Acute Plan Pt is a 73-year-old male with a PMH significant for?CAD s/p cardiac cath in 2019, HFrEF with LVEF 30-35% on 01/31, HTN, HLD, COPD, diet-controlled type 2 diabetes, hypothyroidism, GERD, BPH, moderate to severe cognitive impairment, parkinsonism likely secondary to exposure to antipsychotic medications, and bipolar disorder type 1 with delusions and paranoia who initially presents to the ED with?anxiety and anxiousness. Pt will be admitted to the hospital for treatment and further evaluation of acute HFrEF exacerbation likely from medication noncompliance. 1.Acute HFrEF exacerbation -continue furosemide 40 mg IV b.i.d. -continue spironolactone -Echocardiogram on 01/31 with LVEF 30-35% 2.DEBBIE -responding to volume -follow renal/divalents 3.Mood disorder with behavioral disturbances -good response to Seroquel continue same -psychiatry consult 4.Hypothyroidism - continue levothyroxine 200 mcg 5.HTN -acceptable control on current therapies -adjust as indicated Full Code Lovenox Requires ongoing hospitalization to continue IV diuresis to treat acute exacerbation of systolic CHF Quality Stroke Does the patient have a stroke diagnosis?: No VTE Prior VTE?: No VTE Risk Level:: Medical - moderate - high VTE Device Contraindication: Treatment Not Indicated VTE Drug Contraindication: N/A - Med Ordered
[2024-05-12] MEDS: Enoxaparin Sodium 40 MG/0.4 ML SYRINGE SUBCUT (17:41)
[2024-05-12] MEDS: Atorvastatin Calcium 40 MG TABLET PO (21:21)
[2024-05-13] VITALS (9 sets, daily range): BP systolic 149–175; BP diastolic 64–85; PULSE 49–61; RESP 17–22; TEMP 36.1–36.3; O2SAT 95–99; BMI 33.0
[2024-05-13] MEDS: Haloperidol Lactate 5 MG/ML VIAL IM ×2 (03:25→15:07)
[2024-05-13] MEDS: Levothyroxine Sodium 200 MCG TABLET PO (05:20)
[2024-05-13] MEDS: Omeprazole 20 MG CAPSULE.DR PO (05:20)
--- NOTE | 2024-05-13 06:10 | PM.EVENT ---
Event Note Date of Service: 05/13/24 Event Note: 2:54 AM - Contacted to notify patient fell and landed to his side. Nursing was able to pull him to side mid fall to avoid hitting his head on the wall. He was alert and laughing. It seems he had his shoes on at the moment of the fall. He has been refusing bed alarm, siderails, threatening staff and gets agitated at times. Security was contacted. Haldol 5 mg IM X1 given. On evaluation, patient was lying in bed comfortably, watching TV and cooperative. Answering questions appropriately. Head is atraumatic and neck is not tender. He was able to flex his hips and knees without any significant limitation or tenderness. No brusing or swelling noted. No other interventions needed for nowl. Time Spent With Patient Time: Total time managing care of this patient today ____ minutes.
[2024-05-13] MEDS: Furosemide 40 MG/4 ML VIAL IVPUSH (10:23)
[2024-05-13] MEDS: QUEtiapine Fumarate 25 MG TABLET PO (10:24)
[2024-05-13] MEDS: 0.9 % Sodium Chloride Flush 3 ML SYRINGE IVFLUSH (10:24)
[2024-05-13] MEDS: Losartan Potassium 50 MG TABLET PO (10:24)
[2024-05-13] MEDS: Spironolactone 25 MG TABLET PO (10:24)
--- NOTE | 2024-05-13 10:37 | MHC.CM.PN ---
Patient is not yet medically cleared for dc (had a fall today/refusing alarms/camera etc, became threatening and agitated with staff/security called/IM Haldol given); PT is recommending STR and there are/were 3 SNFs following. CM will continue to follow.
--- NOTE | 2024-05-13 12:46 | HO.PM.IMPN ---
Subjective Subjective Date of Service: 05/13/24 Interval History: Events of overnight noted. Patient calm and cooperative this a.m.. Notes breathing to be better Review of Systems Denies chest pain Denies shortness of breath Denies nausea vomiting diarrhea Denies fever chills Physical Exam Vital Signs: Vital Signs: Last Vital Signs Temp 97.4 F 05/13/24 12:00 Pulse 53 05/13/24 12:00 Resp 22 H 05/13/24 12:00 BP 153/75 H 05/13/24 12:00 Pulse Ox 96 05/13/24 12:00 O2 Del Method Room Air 05/13/24 12:00 BMI result Body Mass Index 33.0 Const: Other: Awake alert no acute distress Resp: Other: Clear to auscultation bilaterally no rales rhonchi or wheezes Cardio: Other: No S4; positive S1-S2; no S3 murmurs rubs or gallops GI: Other: Soft nontender nondistended normoactive bowel sounds Extrem: Other: 2-3+ edema bilaterally Objective Data Active Medications Acetaminophen (Acetaminophen 325 Mg Tablet) 650 mg PO Q6H PRN PRN Reason: Pain, Mild (Pain Scale 1-3), fever or headache Atorvastatin Calcium (Atorvastatin Calcium 40 Mg Tablet) 40 mg PO BEDTIME [facility] Last Admin: 05/12/24 21:21 Dose: 40 mg Documented By: XOCHITL Benzonatate (Benzonatate 100 Mg Capsule) 100 mg PO TID PRN PRN Reason: Cough Calcium Carbonate (Calcium Carbonate 750 Mg Tab.Chew) 750 mg PO Q4H PRN PRN Reason: Heartburn Docusate Sodium (Docusate Sodium 100 Mg Capsule) 100 mg PO DAILY PRN PRN Reason: constipation Enoxaparin Sodium (Enoxaparin Sodium 40 Mg/0.4 Ml Syringe) 40 mg SUBCUT Q24H [facility] Last Admin: 05/12/24 17:41 Dose: 40 mg Documented By: NATANAEL Furosemide (Furosemide 40 Mg/4 Ml Vial) 40 mg IVPUSH BID@0900,1800 [facility]; Protocol Last Admin: 05/13/24 10:23 Dose: 40 mg Documented By: GERI Levothyroxine Sodium (Levothyroxine Sodium 200 Mcg Tablet) 200 mcg PO DAILY@0600 [facility] Last Admin: 05/13/24 05:20 Dose: 200 mcg Documented By: XOCHITL Losartan Potassium (Losartan Potassium 50 Mg Tablet) 50 mg PO DAILY [facility]; Protocol Last Admin: 05/13/24 10:24 Dose: 50 mg Documented By: GERI Magnesium Hydroxide (Milk Of Magnesia 30 Ml Oral.Susp) 30 ml PO DAILY PRN PRN Reason: Constipation Melatonin (Melatonin 3 Mg Tablet) 6 mg PO BEDTIME PRN PRN Reason: Insomnia Omeprazole (Omeprazole 20 Mg Capsule.) 20 mg PO DAILY@0630 [facility] Last Admin: 05/13/24 05:20 Dose: 20 mg Documented By: XOCHITL Quetiapine Fumarate (Quetiapine Fumarate 25 Mg Tablet) 25 mg PO BID [facility] Last Admin: 05/13/24 10:24 Dose: 25 mg Documented By: GERI Sodium Chloride (0.9 % Sodium Chloride Flush 3 Ml Syringe) 3 ml IVFLUSH QSHIFT [facility] Last Admin: 05/13/24 10:24 Dose: 3 ml Documented By: GERI Spironolactone (Spironolactone 25 Mg Tablet) 25 mg PO DAILY [facility]; Protocol Last Admin: 05/13/24 10:24 Dose: 25 mg Documented By: GERI Labs 05/11/24 12:15 05/12/24 08:33 Assessment and Plan (1) Acute HFrEF (heart failure with reduced ejection fraction): Status: Acute (2) Cognitive impairment: Status: Acute Plan Pt is a 73-year-old male with a PMH significant for?CAD s/p cardiac cath in 2019, HFrEF with LVEF 30-35% on 01/31, HTN, HLD, COPD, diet-controlled type 2 diabetes, hypothyroidism, GERD, BPH, moderate to severe cognitive impairment, parkinsonism likely secondary to exposure to antipsychotic medications, and bipolar disorder type 1 with delusions and paranoia who initially presents to the ED with?anxiety and anxiousness. Pt will be admitted to the hospital for treatment and further evaluation of acute HFrEF exacerbation likely from medication noncompliance. 1.Acute HFrEF exacerbation -continue furosemide 40 mg IV b.i.d... 3 L negative thus far -continue spironolactone -Echocardiogram on 01/31 with LVEF 30-35% 2.DEBBIE -responding to volume -follow renal/divalents 3.Mood disorder with behavioral disturbances -good response to Seroquel ... Increase as per clinical response -psychiatry consult 4.Hypothyroidism - continue levothyroxine 200 mcg 5.HTN -acceptable control on current therapies -adjust as indicated Full Code Lovenox Requires ongoing hospitalization to continue IV diuresis to treat acute exacerbation of systolic CHF Quality Stroke Does the patient have a stroke diagnosis?: No VTE Prior VTE?: No VTE Risk Level:: Medical - moderate - high VTE Device Contraindication: Treatment Not Indicated VTE Drug Contraindication: N/A - Med Ordered
--- NOTE | 2024-05-13 13:27 | PC.NURSE ---
Patient becoming increasingly agitated, non cooperative and trying to leave. Patient informed that he is planned for discharge tomorrow but is very upset that he can not leave to go home today. Patient refusing all alarms and walking within room trying to find his shoes. When trying to redirect patient, patient tried to swing at nurse and states Get away from me or you will regret it. Patient then went to the bathroom and when entering the bathroom slammed the door in this RN's face. Patient continued to state you need to stay away from me or else you will regret it and your family will pay. Patient states that he has to right to leave AMA, patient is A x 2. notified and IV Ativan and IM Haldol ordered. At this time patient is sitting in chair talking on the phone with his mother.
[2024-05-13] MEDS: LORazepam 2 MG/ML VIAL 1 MG IVPUSH (15:07)
--- NOTE | 2024-05-13 15:19 | PC.NURSE ---
Patient refusing to take any medications, MD came to bedside to talk with patient. Per MD call security to administer medications. Security came to bedside and was able to hold patients arm while administering medications. IM Haldol and IV Ativan given. Patient currently sitting in chair talking with his mother, slightly more redirectable Call spring within reach and all other needs met at this time. Will monitor vitals q15 mins for the first hour per med restraint orders
--- NOTE | 2024-05-13 16:15 | PC.NURSE ---
Patient had 21 beat run of V-Tach. Patient sleeping and symptomatic. MD notified, HR returned to normal sinus rhythm in the 60's.
[2024-05-14] MEDS: Omeprazole 20 MG CAPSULE.DR PO (05:33)
[2024-05-14] MEDS: Levothyroxine Sodium 200 MCG TABLET PO (05:33)
[2024-05-14 05:34] VITALS: PULSE 66; RESP 20; TEMP 36.2; O2SAT 98
[2024-05-14] MEDS: Spironolactone 25 MG TABLET PO (09:46)
[2024-05-14] MEDS: Losartan Potassium 50 MG TABLET PO (09:46)
[2024-05-14] MEDS: risperiDONE 1 MG TABLET PO ×2 (09:47→19:12)
[2024-05-14] MEDS: 0.9 % Sodium Chloride Flush 3 ML SYRINGE IVFLUSH ×3 (09:52→19:14)
[2024-05-14 09:59] VITALS: BP 146/70; PULSE 59; RESP 18; TEMP 36.4; O2SAT 96
[2024-05-14] MEDS: Furosemide 40 MG/4 ML VIAL IVPUSH ×2 (11:24→17:35)
[2024-05-14 12:00] VITALS: BP 125/60; PULSE 51; RESP 18; TEMP 36.1; O2SAT 97
--- NOTE | 2024-05-14 12:53 | HO.PM.IMPN ---
Subjective Subjective Date of Service: 05/14/24 Interval History: Behavior much calmer overnight. Continues to tolerate diuresis Review of Systems Denies chest pain Denies shortness of breath Denies nausea vomiting diarrhea Denies fever chills Physical Exam Vital Signs: Vital Signs: Last Vital Signs Temp 96.9 F 05/14/24 12:00 Pulse 51 05/14/24 12:00 Resp 18 05/14/24 12:00 BP 125/60 05/14/24 12:00 Pulse Ox 97 05/14/24 12:00 O2 Del Method Room Air 05/14/24 12:00 BMI result Body Mass Index 33.0 Const: Other: Awake alert no acute distress Resp: Other: Clear to auscultation bilaterally no rales rhonchi or wheezes Cardio: Other: No S4; positive S1-S2; no S3 murmurs rubs or gallops GI: Other: Soft nontender nondistended normoactive bowel sounds Extrem: Other: 2-3+ edema bilaterally Objective Data Active Medications Acetaminophen (Acetaminophen 325 Mg Tablet) 650 mg PO Q6H PRN PRN Reason: Pain, Mild (Pain Scale 1-3), fever or headache Atorvastatin Calcium (Atorvastatin Calcium 40 Mg Tablet) 40 mg PO BEDTIME [facility] Last Admin: 05/13/24 22:46 Dose: Not Given Documented By: MENDY Non-Admin Reason: Pt refused. Benzonatate (Benzonatate 100 Mg Capsule) 100 mg PO TID PRN PRN Reason: Cough Calcium Carbonate (Calcium Carbonate 750 Mg Tab.Chew) 750 mg PO Q4H PRN PRN Reason: Heartburn Docusate Sodium (Docusate Sodium 100 Mg Capsule) 100 mg PO DAILY PRN PRN Reason: constipation Enoxaparin Sodium (Enoxaparin Sodium 40 Mg/0.4 Ml Syringe) 40 mg SUBCUT Q24H [facility] Last Admin: 05/13/24 17:34 Dose: Not Given Documented By: GERI Non-Admin Reason: Patient Refused Furosemide (Furosemide 40 Mg/4 Ml Vial) 40 mg IVPUSH BID@0900,1800 [facility]; Protocol Last Admin: 05/14/24 11:24 Dose: 40 mg Documented By: CHUY Levothyroxine Sodium (Levothyroxine Sodium 200 Mcg Tablet) 200 mcg PO DAILY@0600 [facility] Last Admin: 05/14/24 05:33 Dose: 200 mcg Documented By: MENDY Losartan Potassium (Losartan Potassium 50 Mg Tablet) 50 mg PO DAILY [facility]; Protocol Last Admin: 05/14/24 09:46 Dose: 50 mg Documented By: CHUY Magnesium Hydroxide (Milk Of Magnesia 30 Ml Oral.Susp) 30 ml PO DAILY PRN PRN Reason: Constipation Melatonin (Melatonin 3 Mg Tablet) 6 mg PO BEDTIME PRN PRN Reason: Insomnia Omeprazole (Omeprazole 20 Mg Capsule.) 20 mg PO DAILY@0630 [facility] Last Admin: 05/14/24 05:33 Dose: 20 mg Documented By: MENDY Risperidone (Risperidone 1 Mg Tablet) 1 mg PO BID [facility] Last Admin: 05/14/24 09:47 Dose: 1 mg Documented By: CHUY Sodium Chloride (0.9 % Sodium Chloride Flush 3 Ml Syringe) 3 ml IVFLUSH QSHIFT [facility] Last Admin: 05/14/24 09:52 Dose: 3 ml Documented By: CHUY Spironolactone (Spironolactone 25 Mg Tablet) 25 mg PO DAILY [facility]; Protocol Last Admin: 05/14/24 09:46 Dose: 25 mg Documented By: CHUY Labs 05/11/24 12:15 05/12/24 08:33 Assessment and Plan (1) Acute HFrEF (heart failure with reduced ejection fraction): Status: Acute Plan Pt is a 73-year-old male with a PMH significant for?CAD s/p cardiac cath in 2019, HFrEF with LVEF 30-35% on 01/31, HTN, HLD, COPD, diet-controlled type 2 diabetes, hypothyroidism, GERD, BPH, moderate to severe cognitive impairment, parkinsonism likely secondary to exposure to antipsychotic medications, and bipolar disorder type 1 with delusions and paranoia who initially presents to the ED with?anxiety and anxiousness. Pt will be admitted to the hospital for treatment and further evaluation of acute HFrEF exacerbation likely from medication noncompliance. 1.Acute HFrEF exacerbation -continue furosemide 40 mg IV b.i.d... Switch to p.o. in a.m. -continue spironolactone -Echocardiogram on 01/31 with LVEF 30-35% 2.DEBBIE -responding to volume -follow renal/divalents 3.Mood disorder with behavioral disturbances -required Haldol Ativan 7/26. . . Patient had been on Risperdal 1 mg b.i.d. in past. . Will restart -if further behaviors, will restart Depakote as previously taken for mood stabilization -psychiatry consult 4.Hypothyroidism - continue levothyroxine 200 mcg 5.HTN -acceptable control on current therapies -adjust as indicated Full Code Lovenox Requires ongoing hospitalization to continue IV diuresis to treat acute exacerbation of systolic CHF Quality Stroke Does the patient have a stroke diagnosis?: No VTE Prior VTE?: No VTE Risk Level:: Medical - moderate - high VTE Device Contraindication: Treatment Not Indicated VTE Drug Contraindication: N/A - Med Ordered
[2024-05-14 16:00] VITALS: BP 143/67; PULSE 56; RESP 18; TEMP 36.3; O2SAT 96
[2024-05-14] MEDS: Atorvastatin Calcium 40 MG TABLET PO (19:12)
[2024-05-14 20:00] VITALS: BP 143/68; PULSE 55; RESP 18; TEMP 36.8; O2SAT 97
[2024-05-15] MEDS: Levothyroxine Sodium 200 MCG TABLET PO (06:50)
[2024-05-15] MEDS: Omeprazole 20 MG CAPSULE.DR PO (06:50)
[2024-05-15 08:00] VITALS: BP 156/84; PULSE 96; RESP 20; TEMP 36.4; O2SAT 97
[2024-05-15] MEDS: risperiDONE 1 MG TABLET PO (08:16)
[2024-05-15] MEDS: Losartan Potassium 50 MG TABLET PO (08:16)
[2024-05-15] MEDS: Spironolactone 25 MG TABLET PO (08:16)
[2024-05-15] MEDS: 0.9 % Sodium Chloride Flush 3 ML SYRINGE IVFLUSH (08:22)
[2024-05-15] MEDS: Furosemide 40 MG/4 ML VIAL IVPUSH (09:14)
[2024-05-15 11:54] VITALS: BP 139/69; PULSE 58; RESP 18; TEMP 36.3; O2SAT 98
--- NOTE | 2024-05-15 12:29 | P.PNIM_ITS ---
Subjective Subjective Date of Service: 05/15/24 Interval History: No acute behavioral issues overnight. Tolerant of Risperdal. Review of Systems Denies chest pain Denies shortness of breath Denies nausea vomiting diarrhea Denies fever chills Physical Exam 2 Vital Signs: Vital Signs: Last Vital Signs Temp 97.3 F 05/15/24 11:54 Pulse 58 05/15/24 11:54 Resp 18 05/15/24 11:54 BP 139/69 05/15/24 11:54 Pulse Ox 98 05/15/24 11:54 O2 Del Method Room Air 05/15/24 11:54 BMI result Body Mass Index 33.0 Const: Other: Awake alert no acute distress Resp: Other: Clear to auscultation bilaterally no rales rhonchi or wheezes Cardio: Other: No S4; positive S1-S2; no S3 murmurs rubs or gallops GI: Other: Soft nontender nondistended normoactive bowel sounds Extrem: Other: 2-3+ edema bilaterally Objective Data Active Medications Acetaminophen (Acetaminophen 325 Mg Tablet) 650 mg PO Q6H PRN PRN Reason: Pain, Mild (Pain Scale 1-3), fever or headache Atorvastatin Calcium (Atorvastatin Calcium 40 Mg Tablet) 40 mg PO BEDTIME [facility] Last Admin: 05/14/24 19:12 Dose: 40 mg Documented By: MENDY Benzonatate (Benzonatate 100 Mg Capsule) 100 mg PO TID PRN PRN Reason: Cough Calcium Carbonate (Calcium Carbonate 750 Mg Tab.Chew) 750 mg PO Q4H PRN PRN Reason: Heartburn Docusate Sodium (Docusate Sodium 100 Mg Capsule) 100 mg PO DAILY PRN PRN Reason: constipation Enoxaparin Sodium (Enoxaparin Sodium 40 Mg/0.4 Ml Syringe) 40 mg SUBCUT Q24H [facility] Last Admin: 05/14/24 17:35 Dose: Not Given Documented By: CHUY Non-Admin Reason: Patient Refused Furosemide (Furosemide 40 Mg/4 Ml Vial) 40 mg IVPUSH BID@0900,1800 [facility]; Protocol Last Admin: 05/15/24 09:14 Dose: 40 mg Documented By: CHUY Levothyroxine Sodium (Levothyroxine Sodium 200 Mcg Tablet) 200 mcg PO DAILY@0600 [facility] Last Admin: 05/15/24 06:50 Dose: 200 mcg Documented By: MENDY Losartan Potassium (Losartan Potassium 50 Mg Tablet) 50 mg PO DAILY [facility]; Protocol Last Admin: 05/15/24 08:16 Dose: 50 mg Documented By: CHUY Magnesium Hydroxide (Milk Of Magnesia 30 Ml Oral.Susp) 30 ml PO DAILY PRN PRN Reason: Constipation Melatonin (Melatonin 3 Mg Tablet) 6 mg PO BEDTIME PRN PRN Reason: Insomnia Omeprazole (Omeprazole 20 Mg Capsule.Dr) 20 mg PO DAILY@0630 [facility] Last Admin: 05/15/24 06:50 Dose: 20 mg Documented By: MENDY Risperidone (Risperidone 1 Mg Tablet) 1 mg PO BID [facility] Last Admin: 05/15/24 08:16 Dose: 1 mg Documented By: CHUY Sodium Chloride (0.9 % Sodium Chloride Flush 3 Ml Syringe) 3 ml IVFLUSH QSHIFT [facility] Last Admin: 05/15/24 08:22 Dose: 3 ml Documented By: CHUY Spironolactone (Spironolactone 25 Mg Tablet) 25 mg PO DAILY [facility]; Protocol Last Admin: 05/15/24 08:16 Dose: 25 mg Documented By: CHUY Labs 05/11/24 12:15 05/12/24 08:33 Assessment and Plan (1) Acute HFrEF (heart failure with reduced ejection fraction): Status: Acute (2) Dementia: Status: Acute Plan Pt is a 73-year-old male with a PMH significant for?CAD s/p cardiac cath in 2019, HFrEF with LVEF 30-35% on 01/31, HTN, HLD, COPD, diet-controlled type 2 diabetes, hypothyroidism, GERD, BPH, moderate to severe cognitive impairment, parkinsonism likely secondary to exposure to antipsychotic medications, and bipolar disorder type 1 with delusions and paranoia who initially presents to the ED with?anxiety and anxiousness. Pt will be admitted to the hospital for treatment and further evaluation of acute HFrEF exacerbation likely from medication noncompliance. 1.Acute HFrEF exacerbation -DC IV Lasix. Start Lasix 40 mg daily -continue spironolactone -Echocardiogram on 01/31 with LVEF 30-35% 2.DEBBIE -responding to volume -follow renal/divalents 3.Mood disorder with behavioral disturbances -excellent response to risperidone (has been on in past) -continue same 4.Hypothyroidism - continue levothyroxine 200 mcg 5.HTN -acceptable control on current therapies -adjust as indicated Full Code Lovenox Requires ongoing hospitalization to continue IV diuresis to treat acute exacerbation of systolic CHF Quality Stroke Does the patient have a stroke diagnosis?: No VTE Prior VTE?: No VTE Risk Level:: Medical - moderate - high VTE Device Contraindication: Treatment Not Indicated VTE Drug Contraindication: N/A - Med Ordered
[2024-05-15 15:48] VITALS: BP 128/86; PULSE 56; RESP 18; TEMP 36.2; O2SAT 97
[2024-05-15] MEDS: Melatonin 3 MG TABLET 6 MG PO (18:27)
[2024-05-16 06:12] VITALS: BP 122/70; PULSE 52; RESP 16; TEMP 36.4; O2SAT 98
[2024-05-16] MEDS: Levothyroxine Sodium 200 MCG TABLET PO (06:24)
[2024-05-16] MEDS: Omeprazole 20 MG CAPSULE.DR PO (06:24)
[2024-05-16 07:04] VITALS: BP 128/74; PULSE 54; RESP 20; TEMP 36.4; O2SAT 98
--- NOTE | 2024-05-16 07:06 | PC.NURSE ---
Assumed care of patient at 0300. Patient was sleeping at time and refusing staff from performing vital signs or assessment at that time. Patient later re-approached and was alert and oriented X2. Patient allowed loan underwriter to perform vitals but refused all other assessments. Patient continues on room air and did not present with any signs and symptoms of respiratory distress. Patient verbalized last BM as 05/15/24. Patient denied having pain and took morning medications. Patient continues to have sitter and camera in room for safety.. Frequent rounding performed throughout shift and report given to next oncoming nurse.
[2024-05-16] MEDS: Losartan Potassium 50 MG TABLET PO (08:37)
[2024-05-16] MEDS: Furosemide 40 MG TABLET PO (08:37)
[2024-05-16] MEDS: Spironolactone 25 MG TABLET PO (08:37)
[2024-05-16] MEDS: risperiDONE 1 MG TABLET PO (08:37)
[2024-05-16] MEDS: 0.9 % Sodium Chloride Flush 3 ML SYRINGE IVFLUSH (08:37)
[2024-05-16 09:11] VITALS: BP 128/74; PULSE 54; O2SAT 98
[2024-05-16 10:44] VITALS: BP 117/57; PULSE 47; RESP 20; TEMP 36.4; O2SAT 97
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
--- NOTE | 2024-05-16 14:33 | W.MHC.F2F ---
Service Date Service Date: 05/16/24 Encounter Date of encounter: 05/16/24 Reasons for Services Signs and symptoms assessed: Heart failure with reduced EF, noncompliance with medications with elevated TSH/mood disorder Reason for retirement: medication management and teach disease management Reason for physical therapy: home safety and mobility Homebound: Leaving the home is medically contraindicated at this time without the asist of a device and/or another person due th the listed conditions above and below. Reason homebound: weakness related to hospital stay Certification: Based on the above findings, I certify that this patient is confined to the home and needs intermittent retirement care, physical therapy and/or speech therapy, or continues to need occupational therapy. The patient is under my care, and I have initiated the establishment of the plan of care. The patient will be followed by a physician who will periodically review the plan of care. Time Spent With Patient Time: Total time managing care of this patient today ____ minutes.
--- NOTE | 2024-05-16 15:35 | MHC.CM.PN ---
Addendum entered by Svitlana Fontana 05/16/24 16:21: [facility] pt and will see him tomorrow on 05/17. Original Note: Second IMM given 05/16. Pt is medically cleared for discharge today. PT was recommending [facility], and [facility] gave pt a bed offer. Pts mother/HCP Gabriela present at bedside and states that her son will not be going to a custodial under any circumstances, and that she would be bringing him home. Gabriela states that the pt has a INTEGRATED CIRCUIT FABRICATOR daily and requested that we set him up with VNA services. VNA referrals placed, awaiting an accepting agency.
== END 2024-05-16 16:21 | disposition home health service (06) | DRG 291 ==
LOC: HO.ED 13:17 → HO.EDOVER 18:37 → HO.IMC 05-12 00:52
PROVIDERS: Admitting Provider Student in an Organized Health Care Education/Training Program; Emergency Provider Emergency Medicine; PCP Internal Medicine; Visit Provider Hospitalist
DX: I11.0 Hypertensive heart disease with heart failure (principal); I50.23 Acute on chronic systolic (congestive) heart failure; G21.11 Neuroleptic induced parkinsonism; N17.9 Acute kidney failure, unspecified; F02.818 Dementia in other diseases classified elsewhere, unspecified severity, with other behavioral disturbance; F31.9 Bipolar disorder, unspecified; F41.9 Anxiety disorder, unspecified; W19.XXXA Unspecified fall, initial encounter; E78.5 Hyperlipidemia, unspecified; K21.9 Gastro-esophageal reflux disease without esophagitis; E03.9 Hypothyroidism, unspecified; I25.10 Atherosclerotic heart disease of native coronary artery without angina pectoris; E11.9 Type 2 diabetes mellitus without complications; T43.505S Adverse effect of unspecified antipsychotics and neuroleptics, sequela; Z91.148 Patient's other noncompliance with medication regimen for other reason; Z87.891 Personal history of nicotine dependence; Z79.890 Hormone replacement therapy; Z79.899 Other long term (current) drug therapy
CPT/HCPCS: 0241U; 36415; 71045; 80048; 80076; 81001; 82803; 83690; 83735; 83880; 84439; 84443; 84484; 85025; 93005; 97110; 97116; 97162; 97530; 99285; J1630; J1650; J1940; J2060

== ENCOUNTER → 2024-05-11 12:03 | Outpatient (BNV) | payer MEDICARE, MEDICAID, SELFPAY | PROVIDERS: Admitting Provider Student in an Organized Health Care Education/Training Program; Emergency Provider Emergency Medicine; PCP Internal Medicine; Visit Provider Internal Medicine | DX: I49.3 Ventricular premature depolarization (principal) | CPT/HCPCS: 93010 ==

== ENCOUNTER → 2024-05-11 18:18 | Outpatient (BNV) | payer MEDICARE, MEDICAID, SELFPAY | PROVIDERS: Admitting Provider Student in an Organized Health Care Education/Training Program; Emergency Provider Emergency Medicine; PCP Internal Medicine; Visit Provider Student in an Organized Health Care Education/Training Program | DX: I50.21 Acute systolic (congestive) heart failure (principal); N17.9 Acute kidney failure, unspecified; F03.90 Unspecified dementia, unspecified severity, without behavioral disturbance, psychotic disturbance, mood disturbance, and anxiety; E03.9 Hypothyroidism, unspecified | CPT/HCPCS: 99223; 99233; 99239; 99499; G0180 ==

== ENCOUNTER 2024-06-11 08:58 | Inpatient (IN) | payer MEDICARE, MEDICAID, SELFPAY ==
[2024-06-11] VITALS (7 sets, daily range): BP systolic 145–197; BP diastolic 67–112; PULSE 70–101; RESP 16–20; TEMP 36.6–36.8; O2SAT 94–100; BMI 26.6
--- NOTE | ~2024-06-11 | XR_ITS ---
EXAMINATION: XR CHEST CLINICAL INFORMATION: cough COMPARISON: Chest radiograph 05/11/2020 TECHNIQUE: One view of the chest FINDINGS: Lines and tubes: None. Decreased small right and similar trace left pleural effusions. Worsening increased interstitial opacities suggesting atypical/viral infection or pulmonary edema. Few new bibasilar retrocardiac opacities possibly reflecting atelectasis versus infection/aspiration. No pneumothorax. Cardiac silhouette is moderately enlarged, unchanged from prior. XR/XR chest 1V IMPRESSION: 1. Worsening increased interstitial opacities suggesting atypical/viral infection or pulmonary edema. 2. Few new bibasilar retrocardiac opacities possibly reflecting atelectasis versus infection/aspiration. 3. Decreased small right and similar trace left pleural effusions. 4. Cardiac silhouette is moderately enlarged, unchanged from prior. Electronically signed by: Joelle Ascencio MD 06/11/2024 01:06 PM EDT
--- NOTE | 2024-06-11 09:05 | ECG_ITS ---
Test Reason : WEAKNESS Blood Pressure : / mmHG Vent. Rate : 086 BPM Atrial Rate : 086 BPM P-R Int : 160 ms QRS Dur : 164 ms QT Int : 420 ms P-R-T Axes : 062 -19 112 degrees QTc Int : 502 ms Sinus rhythm with Premature atrial complexes Left bundle branch block Abnormal ECG When compared with ECG of 11-MAY-2024 13:15, Premature ventricular complexes are no longer Present Premature atrial complexes are now Present Referred By: Esther Rayo Electronically Signed By:JOSE LUIS MAYO
[2024-06-11] MEDS: risperiDONE 1 MG TABLET PO ×2 (09:28→20:27)
--- NOTE | 2024-06-11 09:28 | PC.NURSE ---
DO Rayo saw patient at bedside during triage, decision was made to move patient from pod to ED 6 for medical clearance prior to receiving psychiatric treatment due to previous hx of medical complications. stock and station agent Christine made aware by DO Rayo. This RN and Security Raciel assisted with moving patient over. This RN gave report to JOSÉ MIGUEL Jack for handoff
--- NOTE | 2024-06-11 09:40 | PC.RT ---
RT evaluated pt for bronch protocol. No tx given at this time, pt agitated. b/s clear bilateral and pt in no respiratory distress. MD and RN aware. Will reevaluate at a later time.
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
--- NOTE | 2024-06-11 10:33 | MHC.EDTECH ---
Patient refused to have blood drawn.
[2024-06-11 10:56] LABS: MANUAL DIFF FLAG NO
[2024-06-11 10:57] LABS: Basophils Percent Auto 0.3 % (0-2); Eosinophils Absolute Auto 0.1 X10*3/uL (0.0-0.4); Eosinophils Percent Auto 0.9 % (0-4); Hematocrit 45.3 % (42.0-52.0); Hemoglobin 14.8 g/dl (14.0-18.0); Imm Gran Abs Auto 0.01 X10*3/uL (0.00-0.03); Imm Gran Pct Auto 0.2 % (0.0-0.4); Lymphocytes Absolute Auto 0.7 X10*3/uL (1.2-4.9); Lymphocytes Percent Auto 10.2 % (20-40); Mean Corpuscular HGB Conc 32.7 g/dl (31.0-36.0); Mean Corpuscular Hemoglobin 30.2 pg (27.0-33.0); Mean Corpuscular Volume 92.4 fL (80.0-98.0); Mean Platelet Volume 9.1 fL (9.4-12.4); Monocytes Absolute Auto 0.6 X10*3/uL (0.1-1.2); Monocytes Percent Auto 9.1 % (2-11); Neutrophils Absolute Auto 5.2 x10*3/uL (2.0-8.3); Neutrophils Percent Auto 79.3 % (45-73); Platelet Count 172 X10*3/uL (160-400); Red Cell Distribution Width 17.8 % (11.0-16.0); White Blood Count 6.6 X10*3/uL (4.8-10.8)
[2024-06-11 11:01] LABS: VBG Base Excess 1.2 mmol/L; VBG HCO3 26 mmol/L (22-26); VBG pCO2 43 mmHg; VBG pH 7.39 (7.32-7.43); VBG pO2 34 mmHg
[2024-06-11 11:03] LABS: Venous Blood Gas Refer to POC result
[2024-06-11 11:16] LABS: Alanine Aminotransferase 28 U/L (0-40); Albumin Level 3.8 g/dL (3.5-5.0); Alkaline Phosphatase 69 U/L (39-117); Ammonia 20 umol/L (13-55); Anion Gap 10 (12-20); Aspartate Amino Transferase 22 U/L (5-37); Bilirubin Direct 0.3 mg/dL (0.0-0.5); Bilirubin Total 0.8 mg/dL (0.0-1.0); Blood Urea Nitrogen 32 mg/dL (9-16); Calcium 9.2 mg/dL (8.4-10.2); Carbon Dioxide 26 mmol/L (22-29); Chloride 112 mmol/L (96-108); Creatinine Clr Calc Pharmacy 51.3; Estimated Glomerular Filt Rate 58; Glucose Random 150 mg/dL (60-115); Lipase 31 U/L (8-78); Potassium 4.3 mmol/L (3.3-5.1); Sodium 144 mmol/L (135-145); Total Protein 6.9 g/dL (6.5-8.0)
[2024-06-11 11:18] LABS: B Type Natriuretic Peptide 2747 pg/mL (<100)
[2024-06-11 11:36] LABS: Ethanol < 10 mg/dL
[2024-06-11 11:37] LABS: TSH reflex Free T4 4.38 uIU/mL (0.32-4.0)
[2024-06-11 11:42] LABS: Influenza A PCR NEGATIVE (Negative); Influenza B PCR NEGATIVE (Negative); Resp Syncy Virus RNA Qual PCR NEGATIVE (Negative); SARS COV2 PCR INHOUSE NEGATIVE (Negative)
[2024-06-11] MEDS: Furosemide 40 MG TABLET PO (11:43)
--- NOTE | 2024-06-11 12:21 | PC.NURSE ---
Pt ambulated to bathroom with steady gait.
--- NOTE | 2024-06-11 12:33 | PC.NURSE ---
spoke w mother - pt has a history of similar pysch complaints, mother is requesting that pt does not go into ED psych pod and is transferred to [place] if it is determined that he needs a higher level of inpt psych care.
[2024-06-11] MEDS: Losartan Potassium 50 MG TABLET PO (13:00)
[2024-06-11 13:05] LABS: Appearance Urine Clear; Color Urine Yellow; Glucose Urine UA Negative (Negative); Leukocyte Esterase Urine Negative (Negative); Nitrite Urine Negative (Negative); Specific Gravity - Urine 1.025 (1.005-1.025); UMIC TRIGGER UACC YES; Urine Blood Moderate (2+) (Negative); Urine Ketones Negative (Negative); Urine Protein 300 (3+) mg/dL (Neg-Trace)
[2024-06-11 13:09] LABS: Free T4 (Free Thyroxine) 1.36 ng/dL (0.71-1.85)
[2024-06-11 13:17] LABS: Amphetamine Screen Urine Not Detected (Not Detect); Barbiturates, Urine Not Detected (Not Detect); Benzodiazepines Screen Urine Not Detected (Not Detect); Buprenorphine Scr Not Detected (Not Detect); Cannabinoid Screen Urine Not Detected (Not Detect); Cocaine Screen Urine Not Detected (Not Detect); Fentanyl, urine Not Detected (Not Detect); Methadone Screen, Urine Not Detected (Not Detect); Opiate Screen Urine Not Detected (Not Detect); Oxycodone Screen Urine Not Detected (Not Detect); Phencyclidine Screen Urine Not Detected (Not Detect)
[2024-06-11 13:21] LABS: Bacteria Urine None Seen (None Seen); Squamous Epithelial Cell Urine 0-2 /HPF (0-2); WBC Urine 0-5 /HPF (0-5)
[2024-06-11] MEDS: Furosemide 20 MG/2 ML VIAL IVPUSH (14:06)
[2024-06-11 14:18] LABS: Troponin-I High Sensitivity 17.9 ng/L (<3.5-35.0)
--- NOTE | 2024-06-11 15:21 | PHA.MEDREC ---
Addendum entered by Austen Cm [facility] 06/11/24 15:45: med rec reviewed Original Note: Pharmacy Consult ? Medication Reconciliation Pharmacy has completed the medication reconciliation. Pt discharged 05/16. Utilized discharge packet to confirm meds. Patient poor historian.
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
[2024-06-11] MEDS: 0.9 % Sodium Chloride Flush 3 ML SYRINGE IVFLUSH (17:50)
--- NOTE | 2024-06-11 19:27 | PC.NURSE ---
Assumed care of pt. pt sitting on recliner in room, fully dresed. No acute distres at this time. Call spring provided at bedside. Requested pt change into hospital attire, pt refusing at this time. Continuing plan of care.
[2024-06-11] MEDS: Atorvastatin Calcium 40 MG TABLET PO (20:27)
[2024-06-12] VITALS: RESP 16
[2024-06-12] MEDS: 0.9 % Sodium Chloride Flush 3 ML SYRINGE IVFLUSH (01:34)
[2024-06-12 04:00] VITALS: RESP 16
[2024-06-12 08:15] VITALS: BP 129/68; PULSE 48; RESP 14; TEMP 36.9; O2SAT 100
[2024-06-12] MEDS: Levothyroxine Sodium 200 MCG TABLET PO (08:44)
--- NOTE | 2024-06-12 10:19 | PC.NURSE ---
Pt refuses AM medications as well as flushing of IV access. Pt educated on the importance of these medications and the maintenance of his IV access. Pt demands IV be removed.
--- NOTE | 2024-06-12 11:07 | PC.NURSE ---
Addendum entered by Christine Marmolejo 06/12/24 13:22: clarification: pt took thyroid meds but declined all his other am medications Original Note: pt's mother called to check on pt status, took am medications, currently calm in recliner, will call back to check on pt status.
--- NOTE | 2024-06-12 12:29 | HO.PM.IMPN ---
Subjective Subjective Date of Service: 06/12/24 Interval History: seen and examined this morning follow up for chf, uncontrolled HTN took am meds, did not agree to repeat lab work ambulating without sob, no sob this am. slept well overnight no orthopnea; leg swelling improving Review of Systems Review of Systems: Yes all other systems are reviewed and are negative Constitutional Constitutional: Denies chills and Denies fever(s) Cardiovascular Cardiovascular: Denies chest pain, Denies palpitations and Denies dyspnea Respiratory Respiratory: Denies cough and Denies dyspnea Endocrine Endocrine: Denies palpitations Physical Exam Vital Signs: Vital Signs: Last Vital Signs Temp 98.4 F 06/12/24 08:15 Pulse 48 L 06/12/24 08:15 Resp 14 06/12/24 08:15 BP 129/68 06/12/24 08:15 Pulse Ox 100 06/12/24 08:15 O2 Del Method Room Air 06/12/24 08:15 BMI result Body Mass Index 26.6 Const: General: comfortable, no acute distress, alert and awake Nutritional Appearance: average body habitus Orientation/consciousness: oriented to person and oriented to place Resp: Effort & Inspection: normal respiratory effort, able to speak in complete sentences, no respiratory distress and no use of accessory muscles Cardio: Rate: bradycardic GI: Inspection: No distended Palpation (GI): Soft to palpation and nontender Neuro: General: oriented to person, oriented to place, moves all extremities and CN's II-XI intact bilaterally Extrem: Other: 1+ edema b/l legs Objective Data Active Medications Acetaminophen (Acetaminophen 325 Mg Tablet) 650 mg PO Q6H PRN PRN Reason: Pain, Mild (Pain Scale 1-3), fever or headache Atorvastatin Calcium (Atorvastatin Calcium 40 Mg Tablet) 40 mg PO BEDTIME [facility] Last Admin: 06/11/24 20:27 Dose: 40 mg Documented By: LOGAN Docusate Sodium (Docusate Sodium 100 Mg Capsule) 100 mg PO DAILY PRN PRN Reason: constipation Enoxaparin Sodium (Enoxaparin Sodium 40 Mg/0.4 Ml Syringe) 40 mg SUBCUT Q24H [facility] Last Admin: 06/11/24 17:51 Dose: Not Given Documented By: RACHEAL Non-Admin Reason: Patient Refused Comments: Refused lovenox injection Furosemide (Furosemide 40 Mg Tablet) 40 mg PO DAILY [facility]; Protocol Glucose (Glucose Gel 15 Gm Gel..Gram.) 15 gm PO Q15M PRN; Protocol PRN Reason: per Hypoglycemia Standing Ord. Dextrose (D10) 250 mls @ 750 mls/hr IV Q15M PRN; Protocol PRN Reason: per Hypoglycemia Standing Ord. Levothyroxine Sodium (Levothyroxine Sodium 200 Mcg Tablet) 200 mcg PO DAILY@0600 [facility] Last Admin: 06/12/24 08:44 Dose: 200 mcg Documented By: NANCY Losartan Potassium (Losartan Potassium 50 Mg Tablet) 50 mg PO DAILY [facility]; Protocol Last Admin: 06/12/24 10:19 Dose: Not Given Documented By: NANCY Non-Admin Reason: Patient Refused Risperidone (Risperidone 1 Mg Tablet) 1 mg PO BID [facility] Last Admin: 06/12/24 10:19 Dose: Not Given Documented By: NANCY Non-Admin Reason: Patient Refused Sodium Chloride (0.9 % Sodium Chloride Flush 3 Ml Syringe) 3 ml IVFLUSH QSHIFT [facility] Last Admin: 06/12/24 10:19 Dose: Not Given Documented By: NANCY Non-Admin Reason: Patient Refused Spironolactone (Spironolactone 25 Mg Tablet) 25 mg PO DAILY [facility]; Protocol Last Admin: 06/12/24 10:19 Dose: Not Given Documented By: NANCY Non-Admin Reason: Patient Refused Labs 06/11/24 10:51 06/11/24 10:51 Labs: Laboratory Results - last 24 hr 06/11/24 06/11/24 10:51 12:54 Troponin I High Sens 17.9 Free T4 1.36 Urine Color Yellow Urine Appearance Clear Urine pH 5.0 Ur Specific [place] 1.025 Urine Protein 300 (3+) H Urine Glucose (UA) Negative Urine Ketones Negative Urine Blood Moderate (2+) H Urine Nitrite Negative Ur Leukocyte Esterase Negative Urine RBC 3-5 H Urine WBC 0-5 Ur Squamous Epith Cells 0-2 Urine Bacteria None Seen Hyaline Casts 3-5 Urine Opiates Screen Not Detected Ur Buprenorphine Scrn Not Detected Ur Oxycodone Screen Not Detected Urine Methadone Screen Not Detected Urine Fentanyl Screen Not Detected Ur Barbiturates Screen Not Detected Ur Phencyclidine Scrn Not Detected Ur Amphetamines Screen Not Detected U Benzodiazepines Scrn Not Detected Urine Cocaine Screen Not Detected U Marijuana (THC) Screen Not Detected Assessment and Plan (1) Acute on chronic clinical systolic heart failure: Status: Acute (2) Medical non-compliance: Status: Acute Plan This is a 73-year-old male with a history of CAD, combined systolic and diastolic CHF, Diet-controlled diabetes, hypothyroidism, parkinsonism, bipolar disorder, history of medication noncompliance who was brought in by ambulance on a section 12 due to increasing paranoia found to be in CHF Acute on chronic combined systolic and diastolic CHF Last echocardiogram from January of 2024 showing EF 30-35% grade 2 diastolic dysfunction Received total 60 mg Lasix in the emergency department No hypoxia resume home dose of po lasix continue baseline aldactone Bipolar disorder with paranoia History of medication noncompliance brought in on section 12 - can NOT leave AMA unless cleared by care team Psychiatric consultation pending continue baseline risperidone care team consulted for LOC Hypertension bp controlled after resuming home dose of losartan Diabetes, diet-controlled Hba1c from december 2023 was 5.4 Diabetic diet follow POCs. no insulin sliding coverage unless blood sugars persistently elevated HLD continue statin Hypothyroidism TSH 4.38, free t4 1.36 continue current dose of sythroid dvt ppx - lovenox HCP - mother Gabriela [phone] Patient will need ongoing stay in the hospital for management of CHF and hypertension Quality Stroke Does the patient have a stroke diagnosis?: No VTE Prior VTE?: No VTE Risk Level:: Medical - moderate - high VTE Device Contraindication: N/A - Device Ordered VTE Drug Contraindication: Treatment Not Indicated
--- NOTE | 2024-06-12 12:57 | MHC.EDTECH ---
This pct attempted to check patients POC and vitals and the patient refused everything. RN Aware
[2024-06-12 15:01] VITALS: BP 149/94; O2SAT 98
[2024-06-12 15:03] LABS: Glucose, Whole Blood 118 mg/dL (60-115)
--- NOTE | 2024-06-12 15:11 | PC.NURSE ---
informed pt is refusing all meds
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
--- NOTE | 2024-06-12 15:46 | MHC.CM.PN ---
Addendum entered by Toma Talley 06/12/24 15:51: PT IS NOT ACTIVE WITH [facility] AND THEY ARE DECLINING REFERRAL STATING PT REFUSED SERVICES Original Note: CM SPOKE TO PTS MOTHER/HCP, NOEMI [phone] SHE REPORTS PT LIVES ALONE AND HAS A YARDAGE CONTROL OPERATOR THAT COMES Q PT ALSO HAS MEALS ON WHEELS DELIVERED HCP AND PCP ON FILE IMM DELIVERED PTS MOTHER IS AWARE HE WILL LIKELY BE CLEARED TO DC TODAY SHE SAYS SHE DOES NOT THINK HE IS STILL ACTIVE WITH [facility] RETURN REFERRAL SENT FOR CONFIRMATION PTS MOTHER WILL TRANSPORT, SHE ASKS THAT SOMEONE CALL WHEN PT IS READY
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
--- NOTE | 2024-06-13 17:42 | MHC.CARE ---
Call from [facility]/[place] police co-response team, they went to patient's home for follow up this am but he would not answer the door but left contact information with [facility] that was arrived at the same time. Patient's mother called and asked what CHD, she was educated about the purpose for their visit, she was pleased to have help and is concerned about her son stated she knows he did not take medication today but cannot get over to his house due to construction on her street and the SERVICES CLERK will is not there on Tuesdays. Mother requested [facility] call her and discuss the situation. She reported being most worried about him taking medication and especially on the days the SERVICES CLERK does not work. Stated she is monitoring his mental health and if she feels he is in danger will bring him to [facility] for psychiatric admission which she believes he may need soon. Reached out to and requested a VNA referral for this patient. Provided [facility] with mother's contact information and they later confirmed they spoke with her, at length.
== END 2024-06-12 18:22 | disposition home or self-care (01) | DRG 293 ==
LOC: HO.ED 13:49 → HO.EDOVER 15:35
PROVIDERS: Admitting Provider Physician Assistant Medical; Emergency Provider Emergency Medicine; PCP Internal Medicine; Visit Provider Physician Assistant Medical
DX: I50.23 Acute on chronic systolic (congestive) heart failure (principal); I25.10 Atherosclerotic heart disease of native coronary artery without angina pectoris; F22 Delusional disorders; E78.5 Hyperlipidemia, unspecified; F03.90 Unspecified dementia, unspecified severity, without behavioral disturbance, psychotic disturbance, mood disturbance, and anxiety; E03.9 Hypothyroidism, unspecified; J44.9 Chronic obstructive pulmonary disease, unspecified; F31.9 Bipolar disorder, unspecified; Z20.822 Contact with and (suspected) exposure to COVID-19; Z91.148 Patient's other noncompliance with medication regimen for other reason; Z87.891 Personal history of nicotine dependence; Z79.890 Hormone replacement therapy; Z79.899 Other long term (current) drug therapy
CPT/HCPCS: 0241U; 36415; 71045; 80048; 80076; 80307; 81001; 82140; 82803; 82947; 83690; 83735; 83880; 84439; 84443; 84484; 85025; 93005; 99285; J1940; S9485

== ENCOUNTER → 2024-06-11 14:59 | Outpatient (BNV) | payer MEDICARE, MEDICAID, SELFPAY | PROVIDERS: Admitting Provider Physician Assistant Medical; Emergency Provider Emergency Medicine; PCP Internal Medicine; Visit Provider Physician Assistant Medical | DX: I50.41 Acute combined systolic (congestive) and diastolic (congestive) heart failure (principal); R41.89 Other symptoms and signs involving cognitive functions and awareness | CPT/HCPCS: 99223; 99239; 99499 ==

== ENCOUNTER 2024-08-03 16:18 | Outpatient (AMB) | payer MEDICARE, MEDICAID, SELFPAY ==
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
[2024-08-03 16:21] VITALS: BP 160/100; PULSE 80; O2SAT 90
== END 2024-08-03 16:51 | disposition home or self-care (01) ==
PROVIDERS: PCP Internal Medicine; Visit Provider Physician Assistant
DX: R06.02 Shortness of breath (principal); R60.0 Localized edema

== ENCOUNTER → 2024-08-03 16:18 | Outpatient (BNVA) | payer MEDICARE, MEDICAID, SELFPAY | PROVIDERS: PCP Internal Medicine; Visit Provider Physician Assistant | DX: R06.02 Shortness of breath (principal); R60.0 Localized edema | CPT/HCPCS: 99212 ==